=== PATIENT | female | born 1940 | race Caucasian/White ===

== ENCOUNTER 2016-04-15 10:57 | Inpatient (IN) | payer OTHER, MEDICARE ==
[~2016-04-15] VITALS: Ht 152.4 cm; Wt 90.0 kg
[2016-04-15] MEDS ORDERED: SODIUM CHLORIDE 0.9% 500ML 500 ML IV STA (11:39)
[2016-04-15] MEDS ORDERED: ALBUT/IPRATROP 3MG/0.5MG NEB 3 ML VIAL INH STA (11:39)
[2016-04-15] MEDS ORDERED: ACETAMINOPHEN 500 MG TAB PO STA (11:40)
--- NOTE | 2016-04-15 11:42 | EMERGENCY ROOM VISIT NOTE ---
History Report prepared by Ayan: Berenice Curiel Under the Supervision of: Dr. Gilmer Gonzalez M.D. First contact with patient: 11:33 Chief Complaint: SHORTNESS OF BREATH Stated Complaint: SHORTNESS OF BREATH Nursing Triage Summary: pt here with increased sob x 2 days. pt states slight cough. just not feeling well. normally does not wear oxygen at home. History of Present Illness The patient is a 75 year old female who presents to the Emergency Room with complaints of worsening shortness of breath. She was brought to the ED via EMS and is accompanied by her daughters. She states over the past 2 days her breathing has become more labored. She admits to a slight cough and states she "just doesn't feel well". Her O2 was in the 80's when EMS arrived, so she was given Oxygen in the field which has provided some relief. The patient does not wear Oxygen at home. She admits her appetite has been decreased over the past few days. She admits to some nausea but denies any vomiting. She denies any recent sick contacts and did not receive the flu shot this year. She denies any recent antibiotic usage. Her daughters deny any change in mental status or behavior. The patient does complain of a headache but states "it's not real bad ". Source of History: patient, family (daughters) Onset: 2 days DIE FILER Position: chest Timing: worsening Modifying Factors (Relieving): oxygen Associated Symptoms: + cough, + headache, + nausea, No vomiting Review of Systems See HPI for pertinent positives & negatives. A total of 10 systems reviewed and were otherwise negative. Past Medical & Surgical Medical Problems: (1) Hypertension Social History Smoking Status: Former Smoker Alcohol Use: occasionally Drug Use: none Marital Status: Housing Status: lives alone Occupation Status: retired Current/Historical Medications Scheduled Atorvastatin (Lipitor), 10 MG PO DAILY Cholecalciferol (D 5000), 5,000 INTERUNIT PO DAILY Furosemide (Lasix), 20 MG PO DAILY Levothyroxine Sodium (Levothyroxine Sodium), 75 MCG PO DAILY Metoprolol Succ (Toprol Xl) (Toprol-Xl), 50 MG PO DAILY Potassium Chloride (Micro-K Ext Rel), 20 MEQ PO DAILY Ropinirole (Requip), 1 MG PO DAILY Warfarin Sod (Jantoven), 2 MG PO DAILY Warfarin Sod (Jantoven), 3 MG PO DAILY Allergies Coded Allergies: No Known Allergies (Unverified , 04/15/16) Physical Exam Vital Signs Date Time Temp Pulse Resp B/P Pulse Ox O2 Delivery O2 Flow Rate FiO2 04/15/16 14:19 82 18 132/91 96 Nasal Cannula 4.0 04/15/16 13:53 95 Nasal Cannula 4.0 04/15/16 13:07 83 04/15/16 12:47 78 16 132/80 95 Nasal Cannula 4.0 04/15/16 11:58 73 20 171/105 98 Nasal Cannula 4.0 04/15/16 11:09 38.0 76 16 162/98 90 Room Air 04/15/16 11:06 75 Physical Exam GENERAL: Patient is dehydrated appearing and appears to be in mild distress. HEENT: No acute trauma, normocephalic atraumatic, mucous membranes moist, runny nose, no scleral icterus. NECK: No stridor, no adenopathy, no meningismus, trachea is midline. LUNGS: Mild tachypnea. No dyspnea. Clear to auscultation and equal bilaterally. No wheeze, no rhonchi. HEART: Regular rate and rhythm. No murmurs, rubs, gallops appreciated. ABDOMEN: Soft, nontender, bowel sounds positive, no masses appreciated, no peritonitis. BACK: No midline tenderness, no CVA tenderness EXTREMITIES: Normal motion all extremities, no cyanosis, no edema. NEUROLOGIC: Alert and oriented, no acute motor or sensory deficits, no focal weakness, cranial nerves grossly intact. SKIN: No rash, no jaundice, no diaphoresis. Medical Decision & Procedures ER Provider Diagnostic Interpretation: This X-Ray was reviewed and interpreted by myself and the radiologist. CHEST ONE VIEW PORTABLE IMPRESSION: Developing mild interstitial pulmonary edema. Electronically signed by: Nolan Strange M.D. 04/15/2016 12:02 PM Laboratory Results 04/15/16 11:00 Red Blood Count 4.29, Mean Corpuscular Volume 94.9, Mean Corpuscular Hemoglobin 32.6, Mean Corpuscular Hemoglobin Concent 34.4, Mean Platelet Volume 10.5, Neutrophils (%) (Auto) 89.6, Lymphocytes (%) (Auto) 5.6, Monocytes (%) (Auto) 4.5, Eosinophils (%) (Auto) 0.0, Basophils (%) (Auto) 0.1, Neutrophils # (Auto) 8.39, Lymphocytes # (Auto) 0.52, Monocytes # (Auto) 0.42, Eosinophils # (Auto) 0.00, Basophils # (Auto) 0.01 04/15/16 11:00 Test 04/15/16 11:00 04/15/16 11:45 04/15/16 12:12 White Blood Count 9.36 K/uL (4.8-10.8) Red Blood Count 4.29 M/uL (4.2-5.4) Hemoglobin 14.0 g/dL (12.0-16.0) Hematocrit 40.7 % (37-47) Mean Corpuscular Volume 94.9 fL (80-100) Mean Corpuscular Hemoglobin 32.6 pg (25-34) Mean Corpuscular Hemoglobin Concent 34.4 g/dl (32-36) Platelet Count 195 K/uL (130-400) Mean Platelet Volume 10.5 fL (7.4-10.4) Neutrophils (%) (Auto) 89.6 % Lymphocytes (%) (Auto) 5.6 % Monocytes (%) (Auto) 4.5 % Eosinophils (%) (Auto) 0.0 % Basophils (%) (Auto) 0.1 % Neutrophils # (Auto) 8.39 K/uL (1.4-6.5) Lymphocytes # (Auto) 0.52 K/uL (1.2-3.4) Monocytes # (Auto) 0.42 K/uL (0.11-0.59) Eosinophils # (Auto) 0.00 K/uL (0-0.5) Basophils # (Auto) 0.01 K/uL (0-0.2) RDW Standard Deviation 47.0 fL (36.4-46.3) RDW Coefficient of Variation 13.7 % (11.5-14.5) Immature Granulocyte % (Auto) 0.2 % Immature Granulocyte # (Auto) 0.02 K/uL (0.00-0.02) Prothrombin Time 19.8 SECONDS (9.0-12.0) Prothromb Time International Ratio 1.8 (0.9-1.1) Anion Gap 8.0 mmol/L (3-11) Est Creatinine Clear Calc Drug Dose 42.8 ml/min Estimated GFR () 56.1 Estimated GFR (Non- 48.4 BUN/Creatinine Ratio 15.5 (10-20) Calcium Level 8.7 mg/dl (8.5-10.1) Troponin I < 0.015 ng/ml (0-0.045) Chemistry Specimen Hemolysis Influenza Type A Antigen Neg for Influ A (NEG) Influenza Type B Antigen Neg for Influ B (NEG) Bedside Lactic Acid Venous 1.13 mmol/L (0.90-1.70) Laboratory results as reviewed by me. Medications Administered Medications (Trade) Dose Ordered Sig/Angeles Route Start Time Stop Time Status Last Admin Dose Admin Sodium Chloride (Nss 500ml) 500 ml @ 999 mls/hr Q31M STAT IV 04/15/16 11:39 04/15/16 12:09 DC 04/15/16 11:51 999 MLS/HR Albuterol/ Ipratropium (Duoneb) 3 ml NOW STAT INH 04/15/16 11:39 04/15/16 11:41 DC 04/15/16 11:48 3 ML Acetaminophen (Tylenol Tab) 1,000 mg NOW STAT PO 04/15/16 11:40 04/15/16 11:41 DC 04/15/16 11:48 1,000 MG Levofloxacin 750 mg 750 mg NOW STAT IV 04/15/16 12:32 04/15/16 12:34 DC 04/15/16 12:46 750 MG Sodium Chloride (Nss 1000ml) 1,000 ml @ 75 mls/hr [id number] IV 04/15/16 14:30 05/15/16 14:29 04/15/16 16:38 75 MLS/HR ECG Indication: SOB/dyspnea Rate (beats per minute): 69 Rhythm: other (ventricular paced) Findings: no acute ischemic change, other (QTC is 450) ED Course 1134: The patient was evaluated in room C4. A complete history and physical exam was performed. 1139: DuoNeb 3 ml INH, NSS 500 ml @ 999 mls/hr IV. 1140: Acetaminophen 1000 mg PO. 1231: I discussed the patients case with Dr. Jerez, [facility] Hospitalist. The patient will be further evaluated. 1232: Levaquin 750 mg IV. Medical Decision Differential: Infectious, Reactive Airway Disease, Pneumonia, Pneumothorax, COPD , CHF, ACS, Pulmonary Embolism, MSK, GI, Dissection, amongst other etiologies entertained. 75 yr old female with fever, shob and requiring NC O2 with O2 sats in 80s DIE FILER. CXR with evidnece of pulm edema which I suspect may be bilateral pneumonia. She has normal lactic acid and normal BP thus hold on full fluid bolus in cause of this being edema though denies any leg swelling nor other CHF findings. Suspect may be viral given WBC is normal. She will need to come in with hypoxia and will start on IV abx given need for hospitalization. Patient agrees with this plan. No evidence of ACS, PE, Dissection. Stable and feeling well on NC O2. Consults Time Called: 1230 Consulting Physician: Dr. Jerez, [facility] Hospitalist Returned Call: 1231 I discussed the patients case with Dr. Jerez, [facility] Hospitalist. The patient will be further evaluated. Impression Primary Impression: Bilateral pneumonia Additional Impression: Hypoxia Scribe Attestation The scribe's documentation has been prepared under my direction and personally reviewed by me in its entirety. I confirm that the note above accurately reflects all work, treatment, procedures, and medical decision making performed by me. Departure Information Dispostion Being Evaluated By Hospitalist Referrals Teodoro Valerio (PCP) Patient Instructions My [facility] Problem Qualifiers Primary Impression: Bilateral pneumonia Pneumonia type: due to unspecified organism Lung location: unspecified part of lung Qualified Codes: J18.9 - Pneumonia, unspecified organism
[2016-04-15 11:48] LABS: BASO % 0.1 %; BASO ABS # 0.01 K/uL (0-0.2); COMPLETE YES; HEMATOCRIT 40.7 % (37-47); IG% 0.2 %; LYMPH % 5.6 %; LYMPH ABS # 0.52 K/uL (1.2-3.4); MEAN CELL VOLUME 94.9 fL (80-100); MEAN CORPUSCULAR HEMOGLOBIN 32.6 pg (25-34); MEAN CORPUSCULAR HGB CONC 34.4 g/dl (32-36); MEAN PLATELET VOLUME 10.5 fL (7.4-10.4); MONO % 4.5 %; NEUT % 89.6 %; PLATELET COUNT 195 K/uL (130-400); RED BLOOD COUNT 4.29 M/uL (4.2-5.4); WHITE BLOOD COUNT 9.36 K/uL (4.8-10.8)
[2016-04-15 12:00] LABS: BLOOD UREA NITROGEN 17 mg/dl (7-18); BUN/CREATININE RATIO 15.5 (10-20); CALCIUM 8.7 mg/dl (8.5-10.1); CARBON DIOXIDE 26 mmol/L (21-32); CHLORIDE 100 mmol/L (98-107); GLUCOSE 121 mg/dl (70-99); POTASSIUM 3.3 mmol/L (3.5-5.1); SODIUM 134 mmol/L (136-145)
--- NOTE | 2016-04-15 12:04 | DIAGNOSTIC IMAGING REPORT ---
CHEST ONE VIEW PORTABLE HISTORY: Shortness of breath. COMPARISON: None. FINDINGS: No pleural effusions. No pneumothorax. The heart is top normal in size. The left-sided dual-chamber pacemaker. There is mild diffuse interstitial vascular thickening. This suggests developing pulmonary edema. IMPRESSION: Developing mild interstitial pulmonary edema. Electronically signed by: Nolan Strange M.D. 04/15/2016 12:02 PM Dictated Date/Time: 04/15/2016 12:01 PM
[2016-04-15] MEDS ORDERED: LEVO75TA5 PO (12:19)
[2016-04-15] MEDS ORDERED: METO50TA7 PO (12:24)
[2016-04-15] MEDS ORDERED: FURO-85 PO (12:24)
[2016-04-15] MEDS ORDERED: WARF2TAB8 PO (12:24)
[2016-04-15] MEDS ORDERED: CHOL1TAB52 PO (12:24)
[2016-04-15] MEDS ORDERED: POTA10CA28 PO (12:24)
[2016-04-15] MEDS ORDERED: ROPI1TAB PO (12:24)
[2016-04-15] MEDS ORDERED: ATOR10TA88 PO (12:24)
[2016-04-15] MEDS ORDERED: WARF3TAB6 PO (12:24)
[2016-04-15] MEDS ORDERED: LEVAQUIN 750MG / 150ML D5W IV STA (12:32)
[2016-04-15 13:53] VITALS: O2SAT 95; Ht 152.4 cm; Wt 90.0 kg
[2016-04-15] MEDS ORDERED: ACETAMINOPHEN 325 MG TAB PO PRN (14:30)
[2016-04-15] MEDS ORDERED: POLYETHYLENE (MIRALAX) 17 GM PACK PO PRN (14:30)
[2016-04-15] MEDS ORDERED: PNEUMOCOCCAL POLYSACCHARIDES 25 MCG/0.5 ML VIAL/SYR IM. ONE (14:30)
[2016-04-15] MEDS ORDERED: MAGNESIUM HYDROXIDE SUSP 30 ML UDC PO PRN (14:30)
[2016-04-15] MEDS ORDERED: ZOLPIDEM TARTRATE 5 MG TAB PO PRN (14:30)
[2016-04-15] MEDS ORDERED: ALUMINUM/MAGNESIUM/SIMETH (MAALOX MAX) 30 ML UDC PO PRN (14:30)
[2016-04-15] MEDS ORDERED: ONDANSETRON INJ 2 MG/ML 2 ML VIAL IV PRN (14:30)
[2016-04-15] MEDS ORDERED: LEVALBUTEROL/IPRATROPIUM NEB INH SCH (15:00)
[2016-04-15] MEDS ORDERED: PNEUMOCOCCAL ADMINISTRATION CHARGE ONE (15:30)
[2016-04-15 15:45] LABS: INR 1.8 (0.9-1.1); PROTHROMBIN TIME (PATIENT) 19.8 SECONDS (9.0-12.0)
[2016-04-15] MEDS ORDERED: WARFARIN SOD 2 MG TAB PO SCH (16:00)
[2016-04-15] MEDS ORDERED: LEVOFLOXACIN CONSULT ACTIVE PRN (16:00)
[2016-04-15] MEDS: SODIUM CHLORIDE 0.9% 1000ML 1,000 ML IV SCH (16:38)
[2016-04-15 16:45] VITALS: BP 144/85; PULSE 78; TEMP 36.4; O2SAT 93
--- NOTE | 2016-04-15 17:02 | HISTORY & PHYSICAL EXAMINATION ---
DATE OF ADMISSION: 04/15/2016 REASON FOR ADMISSION: 1. Shortness of breath and hypoxia. 2. Bilateral lower lobe pneumonia. HISTORY OF PRESENT ILLNESS: The patient is a 75-year-old white female with significant past medical history for hyperlipidemia, hypertension, hypothyroidism, atrial fibrillation/atrial flutter, tachy-juli syndrome, vitamin D deficiency, Graves' disease and cholelithiasis who presented to [facility] Room on 04/15/2016 for increased shortness of breath. According to the patient, her symptoms started about 2 days prior to admission. She started with increased shortness of breath that has persisted. She states that has not really gotten any worse that she knows of and it has not gotten better. She states that she has been having a slight cough with this as well. She is not getting any mucus with the cough. She states that she just felt very poorly today and because of more labored breathing and feeling poorly her family contacted EMS. When EMS got there, her oxygen saturation was in the mid 80% range. She was placed on oxygen in the field. This did provide her with some relief. The patient does not typically wear oxygen at home. She states that again she has not been feeling well for the past couple of days. She has had chills and she has had sweats at home. She has not checked her temperature to see if she is running a fever. In addition to the increased shortness of breath and cough, she has not noticed any wheezing. She denies any chest discomfort, no pleuritic chest pain. No chest pain at rest. She has noticed that her appetite has been diminished. She has not really been eating much for the past couple of days. She has been taking some fluids in, but not a whole lot. She has felt nauseated, but has not had any vomiting. She states that her bowels have been moving despite not eating much. She states that her bowels normally move 1-2 times a day and it has been formed. She has not noticed any blood in stool. She has not had any thick, black, tarry looking stools. She has not had any sick contacts that she is aware of, although she did go out to eat with her family on Saturday prior to feeling poorly. Family reports that despite the O2 saturations being lower she has not had any mental status changes, has not had any personality changes. She states that she has not had any cardiac symptoms. No chest pain, no palpitations, no chest pressure or heaviness. No discomfort up into her jaw or down into her arms. She states that she has had some headache off and on and some dizziness that does not seem to be as bad today. She denies any difficulty with her voiding. She states she has not been voiding quite as much. She states that she is on Lasix daily. She has had no dysuria. She states that her urine has been darker than normal. She has not noticed any blood in her urine. She has some leg swelling but this is normal for her. She has not had any increase in her leg swelling. She states that she will get some pain in her legs towards the evening, she was diagnosed with restless legs syndrome and is on Requip for this. She states that the leg pain has not been any worse over the past couple of days. She denies any numbness or tingling in her extremities. She has not had any travel out of the country recently. Prior to admission she had been doing well and in her normal state of health, where her breathing was doing fairly well. She is a former smoker, having quit earlier this year. Despite that she denies any significant changes in her breathing. She does have the mentioned cardiac history with the tachy-juli syndrome and AFib. She is on Coumadin for this and has had a pacemaker implanted in 2010. She has never been worked up by pulmonology, although she states that the providers have said they have heard something in her right lower lobe previously and that she has had CAT scans done previously, but they have never found anything. CAT scans were done at an outside location, we do not have any evidence of anything in her chart and it has been several years since she has had any imaging done. Today in the ER, the patient was worked up for her breathing difficulty and was found to have what appears to be a bilateral pneumonia on chest x-ray. Fortunately, her white count is stable at 9000. There is no evidence of any sepsis at this time. She did have a temperature 38 upon admission. She was treated with a fluid bolus in the ER, she was also treated with Levaquin, Tylenol and DuoNeb. The patient feels that the DuoNeb did help her breathing as well as the oxygen helped her breathing. She did have flu titers done which were negative as well. She did not have her flu shot this year. She did not have a pneumonia shot recently that she is aware of. PAST MEDICAL HISTORY: Includes atrial fibrillation, tachy-juli syndrome, hyperlipidemia, hypertension, hypothyroidism, Graves' disease, restless legs syndrome, cholelithiasis, vitamin D deficiency. She is followed by Dr. Grant for cardiology. PAST SURGICAL HISTORY: Includes a pacemaker placed approximately 11 years ago and a thyroidectomy for the Graves' disease in 1983. SOCIAL HISTORY: The patient is a former smoker. She quit within the last year. Generally she smokes about half a pack to a pack a day with her predominantly being a half a pack or less since her pacemaker placed 11 years ago, but she has smoked for over 50 years. She does consume alcohol rarely. She lives alone. She is . Her of lung cancer. She is retired from the [employer] where she worked in the [employer]. She has 6 children. CURRENT MEDICATIONS: Include Lipitor 10 mg daily, vitamin D 5000 units daily, Lasix 20 mg daily, Synthroid 75 mcg daily, Toprol 50 mg daily, Micro-K 20 mEq daily, Requip 1 mg daily and Coumadin for which she is on a regimen of 2 mg on Saturday, Saturday and Saturday and 3 mg the rest. INR was not done in the ER. ALLERGIES: No known drug allergies. REVIEW OF SYSTEMS: Essentially as above, are otherwise unremarkable. PHYSICAL EXAMINATION: GENERAL: The patient is a 75-year-old female lying in bed. She is alert and oriented x3. Mood is good. Affect is good. VITAL SIGNS: Temperature 38.0, pulse 76, respirations 16, most recent blood pressure is 132/91, pulse ox 96% on 4 liters. HEENT: Normocephalic, atraumatic. Pupils are equal, round and reactive to light and accommodation. Extraocular movements are intact. The patient does have a bilateral ptosis. [place], dry, tacky mucous membranes. No oropharyngeal erythema or edema. She does have dentures in the upper. NECK: Short, thick. No mass. No adenopathy. No bruits noted. No JVD or thyromegaly. No tenderness to palpation. She has good range of motion. CHEST: She does have some almost coarse wheeze in the bases. There is almost also what appears to sound like some velcro rales in the right base. There is no rhonchi noted. She has fairly good air movement throughout. CARDIOVASCULAR: Regular rate and rhythm. No murmurs, gallops or rubs appreciated. ABDOMEN: Bowel sounds are present. Abdomen is soft, no tenderness to palpation. There is no guarding, rigidity or organomegaly noted. EXTREMITIES: The patient has no significant edema, no erythema. She does have some chronic venous stasis changes predominantly in the left. No tenderness to palpation. Distal pulses are 2/4 and symmetrical bilaterally. Sensation is normal. NEUROLOGIC: Cranial nerves II through XII are intact. There is no focal deficit noted. SKIN: Aside from brawny changes on the lower extremities, no other abnormalities noted. LABORATORY DATA: Shows a white count of 9000, H\T\H of 14.0 and 40.7, and, platelet count of 195,000. Sodium 134, potassium 3.3, chloride 100, carbon dioxide 26, BUN 17, creatinine 1.1, random glucose is 121. Her lactic acid was 1.13, calcium 8.7. Troponin less than 0.01. Chest x-ray showing some bilateral bibasilar changes most consistent with potential infiltrate. IMPRESSION: 1. This is a 75-year-old female with a 2-day history of increased shortness of breath and hypoxia, who presented to [facility] Room today. She was found to have what appears to be a bilateral pneumonia. At this point, the patient will be admitted to [facility] for further evaluation and treatment. I would like to continue her on Levaquin 750 mg daily. I would like her to be on Solu-Medrol 40 mg q.8 hours. I would like aggressive pulmonary toilet before levalbuterol and ipratropium combination q.6 hours. I would like for her to do an incentive spirometer and a flutter valve. We will continue to monitor her CBC and would recommend a repeated chest x-ray in approximately 2-3 days. 2. Hypoxia. The patient will be continued on oxygen and titrate as she shows improvement. The patient was on oxygen at home prior to this. 3. History of atrial fibrillation on Coumadin. The patient's INR will be checked as it was not checked yet today. Per her schedule today she would typically get 2 mg. If the INR is below 3.5 then we will have the patient given 2 mg, if it is above 3.5 then Coumadin will be held and INR will be rechecked tomorrow. 4. Tachy-juli syndrome, the patient has pacemaker, appears to be stable at this time. 5. Hyperlipidemia. The patient is stable. She is to continue her Lipitor. 6. Hypothyroidism. The patient is continue her Synthroid at 75 mcg. 7. Hypertension. The patient is to continue Toprol 50 mg daily. 8. Mild volume depletion. At this time, gently hydrate and hold her Lasix. Will reevaluate tomorrow. At this point, in light of patient's pneumonia as well as hypoxia she meets criteria for 2 midnight stays for hospitalization. I agree with PA assessment and plan and have seen and examined pt myself Reviewed labs, EKG, CXR Agree with PE findings Will tx for PNA at this time. Cont levaquin, dulatabs, spirometry, O2 MTDD
[2016-04-15] MEDS: METHYLPREDNISOLONE IV 40 MG in SYRINGE 0 ML IV SCH (17:38)
[2016-04-15] MEDS: LEVALBUTEROL 1.25MG/0.5ML NEB INH SCH (19:23)
[2016-04-15] MEDS: IPRATROPIUM BROMIDE NEB SOLN 0.02% 2.5 ML VIAL INH SCH (19:23)
[2016-04-15 19:31] VITALS: PULSE 75; O2SAT 96
[2016-04-15] MEDS: POTASSIUM CHLORIDE 20 MEQ TABCR PO SCH (21:54)
[2016-04-15] MEDS: ROPINIROLE HCL 1 MG TAB PO SCH (21:55)
[2016-04-15 23:05] VITALS: BP 124/83; PULSE 76; TEMP 36.9; O2SAT 95
[2016-04-16] VITALS (7 sets, daily range): BP systolic 109–129; BP diastolic 71–81; PULSE 71–79; TEMP 36.5–36.9; O2SAT 91–97
[2016-04-16] MEDS: METHYLPREDNISOLONE IV 40 MG in SYRINGE 0 ML IV SCH ×3 (01:53→21:28)
[2016-04-16] MEDS: LEVALBUTEROL 1.25MG/0.5ML NEB INH SCH ×4 (02:01→20:33)
[2016-04-16] MEDS: IPRATROPIUM BROMIDE NEB SOLN 0.02% 2.5 ML VIAL INH SCH ×4 (02:01→20:33)
[2016-04-16] MEDS: SODIUM CHLORIDE 0.9% 1000ML 1,000 ML IV SCH ×2 (05:41→17:27)
[2016-04-16] MEDS: LEVOTHYROXINE 75 MCG TAB PO SCH (05:41)
[2016-04-16 07:36] LABS: COMPLETE YES; HEMATOCRIT 37.7 % (37-47); IG% 0.3 %; LYMPH % 3.9 %; LYMPH ABS # 0.26 K/uL (1.2-3.4); MEAN CELL VOLUME 94.3 fL (80-100); MEAN CORPUSCULAR HEMOGLOBIN 31.8 pg (25-34); MEAN CORPUSCULAR HGB CONC 33.7 g/dl (32-36); MEAN PLATELET VOLUME 10.2 fL (7.4-10.4); MONO % 2.1 %; NEUT % 93.7 %; PLATELET COUNT 175 K/uL (130-400); WHITE BLOOD COUNT 6.68 K/uL (4.8-10.8)
[2016-04-16 07:45] LABS: INR 1.9 (0.9-1.1); PROTHROMBIN TIME (PATIENT) 21.3 SECONDS (9.0-12.0)
[2016-04-16 08:15] LABS: BUN/CREATININE RATIO 14.3 (10-20); CALCIUM 8.5 mg/dl (8.5-10.1); CREATININE 0.96 mg/dl (0.60-1.20); POTASSIUM 3.4 mmol/L (3.5-5.1)
[2016-04-16] MEDS: POTASSIUM CHLORIDE 20 MEQ TABCR PO SCH ×2 (09:07→21:24)
[2016-04-16] MEDS: ATORVASTATIN 10 MG TAB PO SCH (09:07)
[2016-04-16] MEDS: METOPROLOL SUCC 50MG EXT REL TAB PO SCH (09:07)
[2016-04-16] MEDS: CHOLECALCIFEROL 1000 INTER.UNIT TAB PO SCH (09:08)
[2016-04-16] MEDS: WARFARIN SOD 3 MG TAB PO SCH (15:38)
--- NOTE | 2016-04-16 16:24 | Progress Note ---
Subjective Date of Service: Apr 16, 2016. Subjective Pt evaluation today including: conversation w/ patient, conversation w/ family , physical exam, chart review, lab review, review of studies, review of inpatient medication list Feeling much better. Breathing better. AMbulating without much SOB. Coughing intermittently. No fevers, no chest pain, no abd pain. No n/v/ constipation. No urinary symptoms. Problem List Medical Problems: (1) Bilateral pneumonia Status: Acute (2) Hypoxia Status: Acute Review of Systems All Other Systems: Reviewed and Negative Medications Acetaminophen (Tylenol Tab) 650 mg Q4H PRN PO; Start 04/15/16 at 14:30; Stop 05/15/16 at 14:29 Al Hydrox/Mg Hydrox/Simethicone (Maalox Max Susp) 15 ml Q4H PRN PO; Start 04/15 at 14:30; Stop 05/15/16 at 14:29 Atorvastatin Calcium (Lipitor Tab) 10 mg QAM PO Last administered on 04/16/16 09:07; Admin Dose 10 MG; Start 04/16/16 at 09:00; Stop 05/16/16 at 08:59 Cholecalciferol (Vitamin D Tab) 5,000 inter.unit QAM PO Last administered on 09:08; Admin Dose 5,000 INTER.UNIT; Start 04/16/16 at 09:00; Stop at 08:59 Ipratropium [place] (Atrovent 0.02% 0.5MG/2.5ML Neb) 0.5 mg Q6R INH Last administered on 04/16/16 14:18; Admin Dose 0.5 MG; Start 04/15/16 at 21:00; Stop 05/15/16 at 20:59 Levalbuterol (Xopenex 1.25MG/ 0.5ML Neb) 1.25 mg Q6R INH Last administered on 14:18; Admin Dose 1.25 MG; Start 04/15/16 at 21:00; Stop 05/15/16 at 20: 59 Levofloxacin (Consult) 1 ea UD PRN N/A; Start 04/15/16 at 16:00; Stop 05/15/16 at 15:59 Levofloxacin 750 mg/Prmx 150 ml @ 100 mls/hr Q48H IV; Start 04/17/16 at 12:00; Stop 04/21/16 at 23:59 Levothyroxine Sodium (Synthroid Tab) 75 mcg DAILYBB PO Last administered on 04/16 05:41; Admin Dose 75 MCG; Start 04/16/16 at 06:00; Stop 05/16/16 at 06:59 Magnesium Hydroxide (Milk Of Magnesia Susp) 30 ml Q6H PRN PO; Start 04/15/16 at 14:30; Stop 05/15/16 at 14:29 Methylprednisolone Sodium Succinate/ Syringe (Solu-Medrol IV/ Syringe) 0.64 ml @ 1.5 mls/min Q8H IV Last administered on 04/16/16 10:49; Admin Dose 1.5 MLS/ MIN; Start 04/15/16 at 18:00; Stop 05/15/16 at 21:59 Metoprolol Succinate (Toprol Xl Tab) 50 mg QAM PO Last administered on 09:07; Admin Dose 50 MG; Start 04/16/16 at 09:00; Stop 05/16/16 at 08:59 Ondansetron HCl 4 mg 4 mg Q6H PRN IV; Start 04/15/16 at 14:30; Stop 05/15/16 at 14:29 Polyethylene (Miralax Powder Packet) 17 gm DAILY PRN PO; Start 04/15/16 at 14: 30; Stop 05/15/16 at 14:29 Potassium Chloride (Klor-Con Tab) 20 meq BID PO Last administered on 04/16/16 09:07; Admin Dose 20 MEQ; Start 04/15/16 at 21:00; Stop 05/15/16 at 20:59 Ropinirole HCl (Requip Tab) 1 mg HS PO Last administered on 04/15/16 21:55; Admin Dose 1 MG; Start 04/15/16 at 21:00; Stop 05/15/16 at 20:59 Sodium Chloride 1,000 ml @ 75 mls/hr [id number] IV Last administered on 04/16/16 05:41; Admin Dose 75 MLS/HR; Start 04/15/16 at 14:30; Stop 05/15/16 at 14:29 Warfarin Sodium (Coumadin Tab) 2 mg SuWeFr@1600 PO Last administered on 17:38; Admin Dose 2 MG; Start 04/15/16 at 16:00; Stop 05/15/16 at 15:59 Warfarin Sodium (Coumadin Tab) 3 mg MoTuThSa@1600 PO Last administered on 15:38; Admin Dose 3 MG; Start 04/16/16 at 16:00; Stop 05/16/16 at 15:59 Zolpidem Tartrate (Ambien Tab) 5 mg HSZ PRN PO; Start 04/15/16 at 14:30; Stop 05/15/16 at 14:29 Objective Vital Signs Date Time Temp Pulse Resp B/P Pulse Ox O2 Delivery O2 Flow Rate FiO2 04/16/16 15:20 36.9 76 18 109/71 92 Room Air 04/16/16 14:18 74 16 96 Room Air 04/16/16 08:10 Room Air 04/16/16 07:37 74 16 97 Room Air 04/16/16 07:08 36.5 71 16 125/77 92 Room Air 04/16/16 02:01 79 16 97 Nasal Cannula 2.0 04/15/16 23:59 Nasal Cannula 2.0 04/15/16 23:05 36.9 76 16 124/83 95 Nasal Cannula 2.0 04/15/16 19:31 75 18 96 Nasal Cannula 2.0 04/15/16 16:45 36.4 78 16 144/85 93 Room Air 04/15/16 16:20 Nasal Cannula 2.0 Physical Exam Comments: nad, aox3, coherent with fluent speech eomi, perrl, anicteric, mild proptosis noted s1 s2 rrr, no murmurs appreciated rll crackles at the base (chronic), good air exchange otherwise, no wheezing abd soft,nt/nd +BS, no cva tend cn 2-12 grossly intact without facial drooping Laboratory Results Last 24 Hours Test 04/16/16 06:40 White Blood Count 6.68 K/uL Red Blood Count 4.00 M/uL Hemoglobin 12.7 g/dL Hematocrit 37.7 % Mean Corpuscular Volume 94.3 fL Mean Corpuscular Hemoglobin 31.8 pg Mean Corpuscular Hemoglobin Concent 33.7 g/dl Platelet Count 175 K/uL Mean Platelet Volume 10.2 fL Neutrophils (%) (Auto) 93.7 % Lymphocytes (%) (Auto) 3.9 % Monocytes (%) (Auto) 2.1 % Eosinophils (%) (Auto) 0.0 % Basophils (%) (Auto) 0.0 % Neutrophils # (Auto) 6.26 K/uL Lymphocytes # (Auto) 0.26 K/uL Monocytes # (Auto) 0.14 K/uL Eosinophils # (Auto) 0.00 K/uL Basophils # (Auto) 0.00 K/uL RDW Standard Deviation 46.5 fL RDW Coefficient of Variation 13.4 % Immature Granulocyte % (Auto) 0.3 % Immature Granulocyte # (Auto) 0.02 K/uL Prothrombin Time 21.3 SECONDS Prothromb Time International Ratio 1.9 Sodium Level 135 mmol/L Potassium Level 3.4 mmol/L Chloride Level 103 mmol/L Carbon Dioxide Level 21 mmol/L Anion Gap 11.0 mmol/L Blood Urea Nitrogen 14 mg/dl Creatinine 0.96 mg/dl Est Creatinine Clear Calc Drug Dose 49.0 ml/min Estimated GFR () 66.1 Estimated GFR (Non- 57.0 BUN/Creatinine Ratio 14.3 Random Glucose 195 mg/dl Calcium Level 8.5 mg/dl Assessment and Plan 75yo F h/o Graves, htn, Afib on a/c, SSS s/p PPM admitted with LLL pneumonia on levaquin 1. LLL Pneumonia - improving on levaquin - cont solu-medrol and will taper down gradually - cont nebs 2. Hyponatremia - with hypokalemia - likely from decreased po intake - given supplement of K t his morning - Na should improve with po intake 3. HTN - acceptable BP on current regimen 4. Afib, SSS s/p PPM - on coumadin at home - INR 1.9, will not change coumadin dose for now especially with abx on board - INR check in AM
[2016-04-16] MEDS: ROPINIROLE HCL 1 MG TAB PO SCH (21:24)
[2016-04-17] VITALS (9 sets, daily range): BP systolic 122–144; BP diastolic 78–85; PULSE 76–87; TEMP 36.4–36.7; O2SAT 91–97
[2016-04-17] MEDS: LEVALBUTEROL 1.25MG/0.5ML NEB INH SCH ×4 (02:13→19:55)
[2016-04-17] MEDS: IPRATROPIUM BROMIDE NEB SOLN 0.02% 2.5 ML VIAL INH SCH ×4 (02:13→19:55)
[2016-04-17] MEDS: LEVOTHYROXINE 75 MCG TAB PO SCH (05:59)
[2016-04-17] MEDS: SODIUM CHLORIDE 0.9% 1000ML 1,000 ML IV SCH ×2 (06:00→20:16)
[2016-04-17 08:32] LABS: INR 2.8 (0.9-1.1); PROTHROMBIN TIME (PATIENT) 31.4 SECONDS (9.0-12.0)
[2016-04-17 08:48] LABS: BUN/CREATININE RATIO 15.7 (10-20); CALCIUM 8.7 mg/dl (8.5-10.1); CREATININE 0.95 mg/dl (0.60-1.20); POTASSIUM 3.6 mmol/L (3.5-5.1)
[2016-04-17 08:56] LABS: COMPLETE YES; HEMATOCRIT 38.9 % (37-47); IG% 0.3 %; LYMPH % 3.7 %; LYMPH ABS # 0.64 K/uL (1.2-3.4); MEAN CELL VOLUME 93.7 fL (80-100); MEAN CORPUSCULAR HEMOGLOBIN 32.3 pg (25-34); MEAN CORPUSCULAR HGB CONC 34.4 g/dl (32-36); MEAN PLATELET VOLUME 10.8 fL (7.4-10.4); MONO % 4.2 %; NEUT % 91.8 %; PLATELET COUNT 213 K/uL (130-400); RED BLOOD COUNT 4.15 M/uL (4.2-5.4)
[2016-04-17] MEDS: POTASSIUM CHLORIDE 20 MEQ TABCR PO SCH ×2 (09:07→20:15)
[2016-04-17] MEDS: METOPROLOL SUCC 50MG EXT REL TAB PO SCH (09:07)
[2016-04-17] MEDS: METHYLPREDNISOLONE IV 40 MG in SYRINGE 0 ML IV SCH ×2 (09:07→20:15)
[2016-04-17] MEDS: CHOLECALCIFEROL 1000 INTER.UNIT TAB PO SCH (09:07)
[2016-04-17] MEDS: ATORVASTATIN 10 MG TAB PO SCH (09:07)
[2016-04-17] MEDS ORDERED: LEVOFLOXACIN / D5W 750 MG in PREMIXED IN D5W 150 ML IV SCH (12:00)
--- NOTE | 2016-04-17 15:21 | Progress Note ---
Subjective Date of Service: Apr 17, 2016. Subjective Pt evaluation today including: conversation w/ patient, physical exam, lab review, review of inpatient medication list Feeling better. No SOB, no chest pain. GOod appetite. Problem List Medical Problems: (1) Bilateral pneumonia Status: Acute (2) Hypoxia Status: Acute Review of Systems All Other Systems: Reviewed and Negative Medications Acetaminophen (Tylenol Tab) 650 mg Q4H PRN PO; Start 04/15/16 at 14:30; Stop 05/15/16 at 14:29 Al Hydrox/Mg Hydrox/Simethicone (Maalox Max Susp) 15 ml Q4H PRN PO; Start 04/15 at 14:30; Stop 05/15/16 at 14:29 Atorvastatin Calcium (Lipitor Tab) 10 mg QAM PO Last administered on 04/17/16 09:07; Admin Dose 10 MG; Start 04/16/16 at 09:00; Stop 05/16/16 at 08:59 Cholecalciferol (Vitamin D Tab) 5,000 inter.unit QAM PO Last administered on 09:07; Admin Dose 5,000 INTER.UNIT; Start 04/16/16 at 09:00; Stop at 08:59 Ipratropium [place] (Atrovent 0.02% 0.5MG/2.5ML Neb) 0.5 mg Q6R INH Last administered on 04/17/16 14:24; Admin Dose 0.5 MG; Start 04/15/16 at 21:00; Stop 05/15/16 at 20:59 Levalbuterol (Xopenex 1.25MG/ 0.5ML Neb) 1.25 mg Q6R INH Last administered on 14:24; Admin Dose 1.25 MG; Start 04/15/16 at 21:00; Stop 05/15/16 at 20: 59 Levofloxacin (Consult) 1 ea UD PRN N/A; Start 04/15/16 at 16:00; Stop 05/15/16 at 15:59 Levofloxacin/Prmx (Levaquin / D5W/ Premixed D5W) 150 ml @ 100 mls/hr Q48H IV Last administered on 04/17/16 11:49; Admin Dose 100 MLS/HR; Start 04/17/16 at 12:00; Stop 04/21/16 at 23:59 Levothyroxine Sodium (Synthroid Tab) 75 mcg DAILYBB PO Last administered on 04/17 05:59; Admin Dose 75 MCG; Start 04/16/16 at 06:00; Stop 05/16/16 at 06:59 Magnesium Hydroxide (Milk Of Magnesia Susp) 30 ml Q6H PRN PO; Start 04/15/16 at 14:30; Stop 05/15/16 at 14:29 Methylprednisolone Sodium Succinate/ Syringe (Solu-Medrol IV/ Syringe) 0.64 ml @ 1.5 mls/min Q12@1000,2200 IV Last administered on 04/17/16 09:07; Admin Dose 1.5 MLS/MIN; Start 04/16/16 at 22:00; Stop 05/16/16 at 21:59 Metoprolol Succinate (Toprol Xl Tab) 50 mg QAM PO Last administered on 09:07; Admin Dose 50 MG; Start 04/16/16 at 09:00; Stop 05/16/16 at 08:59 Ondansetron HCl 4 mg 4 mg Q6H PRN IV; Start 04/15/16 at 14:30; Stop 05/15/16 at 14:29 Polyethylene (Miralax Powder Packet) 17 gm DAILY PRN PO; Start 04/15/16 at 14: 30; Stop 05/15/16 at 14:29 Potassium Chloride (Klor-Con Tab) 20 meq BID PO Last administered on 04/17/16 09:07; Admin Dose 20 MEQ; Start 04/15/16 at 21:00; Stop 05/15/16 at 20:59 Ropinirole HCl (Requip Tab) 1 mg HS PO Last administered on 04/16/16 21:24; Admin Dose 1 MG; Start 04/15/16 at 21:00; Stop 05/15/16 at 20:59 Sodium Chloride 1,000 ml @ 75 mls/hr [id number] IV Last administered on 04/17/16 06:00; Admin Dose 75 MLS/HR; Start 04/15/16 at 14:30; Stop 05/15/16 at 14:29 Warfarin Sodium (Coumadin Tab) 2 mg SuWeFr@1600 PO Last administered on 17:38; Admin Dose 2 MG; Start 04/15/16 at 16:00; Stop 05/15/16 at 15:59 Warfarin Sodium 3 mg 3 mg MoTuThSa@1600 PO Last administered on 04/17/16 15:45 ; Admin Dose 3 MG; Start 04/16/16 at 16:00; Stop 05/16/16 at 15:59 Zolpidem Tartrate (Ambien Tab) 5 mg HSZ PRN PO; Start 04/15/16 at 14:30; Stop 05/15/16 at 14:29 Objective Vital Signs Date Time Temp Pulse Resp B/P Pulse Ox O2 Delivery O2 Flow Rate FiO2 04/17/16 14:24 79 16 97 Room Air 04/17/16 11:57 36.5 87 16 142/85 93 Room Air 04/17/16 07:32 36.4 83 16 144/83 92 Room Air 04/17/16 07:30 Room Air 04/17/16 07:17 83 16 96 Room Air 04/17/16 02:13 78 18 94 Room Air 04/17/16 00:07 Room Air 04/16/16 23:55 36.6 79 16 129/81 91 Room Air 04/16/16 20:34 71 16 97 Room Air 04/16/16 20:00 Room Air Physical Exam Comments: nad, aox3, eomi, perrl s1 s2 rrr, no murmurs appreciated left basilar rales, occ wheezing, no rhonchi abd soft, nt/nd +BS no cva tend no LE edema cn 2-12 grossly intact without facial drooping, coherent and fluent speech Laboratory Results Last 24 Hours Test 04/17/16 07:46 White Blood Count 17.20 K/uL Red Blood Count 4.15 M/uL Hemoglobin 13.4 g/dL Hematocrit 38.9 % Mean Corpuscular Volume 93.7 fL Mean Corpuscular Hemoglobin 32.3 pg Mean Corpuscular Hemoglobin Concent 34.4 g/dl Platelet Count 213 K/uL Mean Platelet Volume 10.8 fL Neutrophils (%) (Auto) 91.8 % Lymphocytes (%) (Auto) 3.7 % Monocytes (%) (Auto) 4.2 % Eosinophils (%) (Auto) 0.0 % Basophils (%) (Auto) 0.0 % Neutrophils # (Auto) 15.78 K/uL Lymphocytes # (Auto) 0.64 K/uL Monocytes # (Auto) 0.72 K/uL Eosinophils # (Auto) 0.00 K/uL Basophils # (Auto) 0.00 K/uL RDW Standard Deviation 47.3 fL RDW Coefficient of Variation 13.8 % Immature Granulocyte % (Auto) 0.3 % Immature Granulocyte # (Auto) 0.06 K/uL Prothrombin Time 31.4 SECONDS Prothromb Time International Ratio 2.8 Sodium Level 136 mmol/L Potassium Level 3.6 mmol/L Chloride Level 105 mmol/L Carbon Dioxide Level 18 mmol/L Anion Gap 13.0 mmol/L Blood Urea Nitrogen 15 mg/dl Creatinine 0.95 mg/dl Est Creatinine Clear Calc Drug Dose 49.6 ml/min Estimated GFR () 67.0 Estimated GFR (Non- 57.8 BUN/Creatinine Ratio 15.7 Random Glucose 148 mg/dl Calcium Level 8.7 mg/dl Assessment and Plan 75yo F h/o Graves, htn, Afib on a/c, SSS s/p PPM admitted with LLL pneumonia on levaquin 1. LLL Pneumonia - improving on levaquin, can be switched to po to complete 7 days - cont solu-medrol and will taper down gradually and switch to po steroids on discharge - cont nebs 2. Hyponatremia - with hypokalemia - likely from decreased po intake - resolved with improvement in po intake 3. HTN - acceptable BP on current regimen 4. Afib, SSS s/p PPM - on coumadin at home - INR therapeutic - AM INR check
[2016-04-17] MEDS: WARFARIN SOD 3 MG TAB PO SCH (15:45)
[2016-04-17] MEDS: ROPINIROLE HCL 1 MG TAB PO SCH (20:15)
[2016-04-18 02:23] VITALS: PULSE 73; O2SAT 94
[2016-04-18] MEDS: IPRATROPIUM BROMIDE NEB SOLN 0.02% 2.5 ML VIAL INH SCH ×2 (02:23→07:53)
[2016-04-18] MEDS: LEVALBUTEROL 1.25MG/0.5ML NEB INH SCH ×2 (02:23→07:53)
[2016-04-18] MEDS: LEVOTHYROXINE 75 MCG TAB PO SCH (05:34)
--- NOTE | 2016-04-18 07:57 | DIAGNOSTIC IMAGING REPORT ---
TWO VIEW CHEST CLINICAL HISTORY: Pneumonia. FINDINGS: PA and lateral chest radiographs are compared to study dated 04/15/2016. A 2-lead cardiac pacemaker is unchanged in position and partially obscures the left mid chest. The heart is enlarged and there is atherosclerotic calcification of the thoracic aorta. Mild pulmonary vascular congestion persists. Chronic interstitial thickening is unchanged. A trace right pleural effusion is suspected. No airspace consolidation is seen typical for pneumonia. Bibasilar atelectasis is noted. Apical scarring is observed. There is no pneumothorax. The skeletal structures are osteopenic. Degenerative change and mild scoliosis are identified in the thoracic spine. IMPRESSION: 1. Cardiomegaly and cardiac pacemaker. Mild pulmonary vascular congestion persists. 2. Suspect a trace right pleural effusion. 3. No airspace consolidation is seen typical for pneumonia.. Electronically signed by: Troy Platt M.D. 04/18/2016 7:55 AM Dictated Date/Time: 04/18/2016 7:53 AM
[2016-04-18 08:31] VITALS: BP 132/64; PULSE 80; TEMP 36.6; O2SAT 92
[2016-04-18 08:35] LABS: BASO % 0.1 %; BASO ABS # 0.01 K/uL (0-0.2); COMPLETE YES; HEMATOCRIT 37.2 % (37-47); IG% 0.9 %; LYMPH % 4.3 %; LYMPH ABS # 0.57 K/uL (1.2-3.4); MEAN CELL VOLUME 91.9 fL (80-100); MEAN CORPUSCULAR HEMOGLOBIN 31.4 pg (25-34); MEAN CORPUSCULAR HGB CONC 34.1 g/dl (32-36); MEAN PLATELET VOLUME 9.9 fL (7.4-10.4); MONO % 6.6 %; NEUT % 88.1 %; PLATELET COUNT 215 K/uL (130-400); RED BLOOD COUNT 4.05 M/uL (4.2-5.4); WHITE BLOOD COUNT 13.25 K/uL (4.8-10.8)
[2016-04-18] MEDS: CHOLECALCIFEROL 1000 INTER.UNIT TAB PO SCH (08:40)
[2016-04-18] MEDS: POTASSIUM CHLORIDE 20 MEQ TABCR PO SCH (08:40)
[2016-04-18] MEDS: METOPROLOL SUCC 50MG EXT REL TAB PO SCH (08:40)
[2016-04-18] MEDS: ATORVASTATIN 10 MG TAB PO SCH (08:40)
[2016-04-18 08:41] LABS: PROTHROMBIN TIME (PATIENT) 40.8 SECONDS (9.0-12.0)
[2016-04-18] MEDS: SODIUM CHLORIDE 0.9% 1000ML 1,000 ML IV SCH (08:42)
[2016-04-18 08:43] VITALS: O2SAT 92
[2016-04-18 08:46] LABS: INR 3.6 (0.9-1.1)
[2016-04-18 09:00] LABS: BUN/CREATININE RATIO 21.2 (10-20); CALCIUM 8.8 mg/dl (8.5-10.1); CREATININE 0.97 mg/dl (0.60-1.20); POTASSIUM 4.1 mmol/L (3.5-5.1)
[2016-04-18] MEDS: METHYLPREDNISOLONE IV 40 MG in SYRINGE 0 ML IV SCH (10:27)
[2016-04-18] MEDS ORDERED: LVQ750 PO (12:25)
[2016-04-18] MEDS ORDERED: PRED10TA PO (12:25)
--- NOTE | 2016-04-18 12:41 | Discharge Instructions ---
Discharge Instructions Admission Reason for Admission: Bilateral Pneumonia, Hypoxia Discharge Discharge Diagnosis / Problem: stable for home Discharge Goals Goal(s): Decrease discomfort, Improve function Activity Recommendations Activity Limitations: resume your previous activity . Current Hospital Diet Patient's current hospital diet: AHA Diet (Heart Healthy) Discharge Diet Recommended Diet: Regular Diet Pending Studies Studies pending at discharge: no Medical Emergencies . Who to Call and When: Medical Emergencies: If at any time you feel your situation is an emergency, please call 911 immediately. . Non-Emergent Contact Non-Emergency issues call your: Primary Care Provider . . "Provider Documentation" section prepared by Rafaela Erazo. VTE Core Measure Inpt VTE Proph given/why not?: Warfarin (Coumadin)
--- NOTE | 2016-04-18 12:43 | Discharge Summary ---
Discharge Summary Date of Service Apr 18, 2016. Discharge Summary Admission Date: Apr 15, 2016 at 15:07 Discharge Date: Apr 18, 2016 Discharge Disposition: Home Principal Diagnosis: pneumonia Immunizations: Have You Had Influenza Vaccine: No Hospital Course 75yo F h/o Graves, htn, Afib on a/c, SSS s/p PPM admitted with LLL pneumonia on levaquin Vital Signs Date Time Temp Pulse Resp B/P Pulse Ox O2 Delivery O2 Flow Rate FiO2 04/18/16 13:38 36.6 80 16 92 Room Air 04/18/16 08:31 132/64 04/16/16 02:01 2.0 On day of discharge, felt well. No sob, no chest pain. no exertional dyspnea. GOod appetite. NAD, aox3 eomi, perrl, anicteric sclerae s1 s2 rrr, no mumurs appreciated rll rales (chronic) clear left lung without wheezing abd soft nt/nd +BS no LE edema 1. LLL Pneumonia - improving on levaquin, now po for 4 more days - taper steroids, directions on script - repeat CXR in 4-6 weeks 2. Hyponatremia - with hypokalemia - likely from decreased po intake - resolved with improvement in po intake 3. HTN - acceptable BP on current regimen 4. Afib, SSS s/p PPM - on coumadin at home - INR supratherapeutic - advised to hold coumadin tonight - should resume at lower dose of coumadin on 04/19 at 2 mg nightly - she will have her INR checked in 3 days as outpatient by Dr. Rodriguez Total Time Spent: Less than 30 minutes This includes examination of the patient, discharge planning, medication reconciliation, and communication with other providers. Discharge Instructions Please refer to the electronic Patient Visit Report (Discharge Instructions) for additional information. Additional Copies To Lg Rodriguez MD
[2016-04-18 13:38] VITALS: BP 132/64; PULSE 80; TEMP 36.6; O2SAT 92
[2016-04-19] MEDS ORDERED: LEVOFLOXACIN 750 MG TAB PO SCH (11:00)
[2016-04-23] MEDS ORDERED: LVNIS80 SQ (10:02)
[2016-04-23] MEDS ORDERED: PRT40 PO (10:02)
[2016-08-28] MEDS ORDERED: METO-217 PO (12:42)
[2016-08-28] MEDS ORDERED: FRS/40 PO (12:42)
[2016-08-28] MEDS ORDERED: ASPI81TA28 PO (12:42)
[2016-08-28] MEDS ORDERED: LEVO75TA5 PO (12:42)
== END 2016-04-18 15:00 | disposition home or self-care (01) | DRG 194 ==
LOC: ENRESERVTM → ENRESERVDT → EDBD 10:57 → C.EDC 10:58 → C.MSW 15:07
PROVIDERS: ADMIT Hospitalist; ATTEND Internal Medicine
DX: J18.9 Pneumonia, unspecified organism (principal); E87.1 Hypo-osmolality and hyponatremia; E87.6 Hypokalemia; R09.02 Hypoxemia; I10 Essential (primary) hypertension; I48.91 Unspecified atrial fibrillation; E05.00 Thyrotoxicosis with diffuse goiter without thyrotoxic crisis or storm; E03.9 Hypothyroidism, unspecified; G25.81 Restless legs syndrome; E55.9 Vitamin D deficiency, unspecified; Z79.899 Other long term (current) drug therapy; Z79.01 Long term (current) use of anticoagulants; Z66 Do not resuscitate; Z95.0 Presence of cardiac pacemaker; Z87.891 Personal history of nicotine dependence

== ENCOUNTER 2016-04-19 13:56 | Inpatient (IN) | payer OTHER, MEDICARE ==
[2016-04-19] VITALS (7 sets, daily range): BP systolic 147–169; BP diastolic 80–103; PULSE 64–73; TEMP 35.8–36.4; O2SAT 96–98; Ht 167.6 cm; Wt 87.3 kg
[~2016-04-19] VITALS: Ht 167.6 cm; Wt 87.3 kg
[~2016-04-19 13:56] MED LIST: ATOR10TA88 PO; CHOL1TAB52 PO; FURO-85 PO; LEVO75TA5 PO; LVQ750 PO; METO50TA7 PO; POTA10CA28 PO; PRED10TA PO; ROPI1TAB PO; WARF2TAB8 PO
[2016-04-19] MEDS ORDERED: OPTIRAY 320 IV PRN (14:30)
[2016-04-19 14:49] LABS: BASO % 0.3 %; BASO ABS # 0.05 K/uL (0-0.2); COMPLETE YES; EOS % 0.1 %; HEMATOCRIT 41.7 % (37-47); IG% 2.5 %; LYMPH % 6.7 %; MEAN CELL VOLUME 92.3 fL (80-100); MEAN CORPUSCULAR HEMOGLOBIN 31.2 pg (25-34); MEAN CORPUSCULAR HGB CONC 33.8 g/dl (32-36); MEAN PLATELET VOLUME 10.1 fL (7.4-10.4); MONO % 9.3 %; NEUT % 81.1 %; PLATELET COUNT 251 K/uL (130-400); RED BLOOD COUNT 4.52 M/uL (4.2-5.4)
[2016-04-19 14:55] LABS: URINE APPEARANCE CLEAR (CLEAR); URINE BILIRUBIN NEG (NEG); URINE COLOR YELLOW; URINE EPITHELIAL CELL AUTO 0-5 /lpf (0-5); URINE NITRITE NEG (NEG); URINE SPECIFIC GRAVITY 1.002 (1.000-1.030); UROBILINOGEN NEG (NEG)
--- NOTE | 2016-04-19 14:56 | DIAGNOSTIC IMAGING REPORT ---
CHEST ONE VIEW PORTABLE CLINICAL HISTORY: GI bleed. COMPARISON STUDY: Chest radiograph April 18, 2016. FINDINGS: A dual lead left subclavian pacemaker is unchanged in position. There is no pneumothorax or pleural effusion. Moderate cardiomegaly is unchanged. There is pulmonary vascular congestion without overt pulmonary edema. There is a suspected trace right pleural effusion. No consolidation is identified. Patient is rotated. IMPRESSION: 1. Pulmonary vascular congestion without overt pulmonary edema. 2. Trace right pleural effusion. Electronically signed by: Piotr Ly M.D. 04/19/2016 2:55 PM Dictated Date/Time: 04/19/2016 2:54 PM
[2016-04-19 14:59] LABS: MANUAL MICROSCOPIC REQUIRED? NO; REVIEW REQ? NO
[2016-04-19 15:24] LABS: ALKALINE PHOSPHATASE 156 U/L (45-117); ALT/SGPT 97 U/L (12-78); BLOOD UREA NITROGEN 23 mg/dl (7-18); BUN/CREATININE RATIO 23.2 (10-20); CARBON DIOXIDE 21 mmol/L (21-32); CHLORIDE 108 mmol/L (98-107); GLUCOSE 86 mg/dl (70-99); SODIUM 139 mmol/L (136-145)
[2016-04-19 15:27] LABS: POTASSIUM 4.3 mmol/L (3.5-5.1)
[2016-04-19 15:39] LABS: PARTIAL THROMBOPLASTIN RATIO 1.6
[2016-04-19 15:40] LABS: PROTHROMBIN TIME (PATIENT) 40.8 SECONDS (9.0-12.0)
[2016-04-19 15:41] LABS: AST/SGOT 41 U/L (15-37); CKMB/CK RATIO 4.2 (0-3.0)
[2016-04-19 15:41] LABS: INR 3.6 (0.9-1.1)
[2016-04-19 15:43] LABS: CALCIUM 8.8 mg/dl (8.5-10.1)
--- NOTE | 2016-04-19 16:14 | DIAGNOSTIC IMAGING REPORT ---
CT ANGIOGRAPHY OF THE CHEST, PULMONARY EMBOLUS PROTOCOL CLINICAL HISTORY: Chest pain. Shortness of breath. Hypoxia. COMPARISON STUDY: Chest radiograph April 18, 2016 and April 19, 2016. TECHNIQUE: Following IV administration of 116 mL of Optiray-320, helical axial images of the chest were obtained utilizing the pulmonary embolus protocol. Maximal intensity projections and sagittal and coronal reformats were viewed on an independent 3D workstation. IV contrast was administered without complication. CT DOSE: 594.98 mGycm FINDINGS: No pulmonary emboli are identified. The heart is moderately enlarged. A left subclavian pacemaker is in place. There is no pericardial effusion. A trace right pleural effusion is present. There is no pneumothorax. Right lower lobe opacity favors atelectasis. Central airways are patent. There is mild mucus within the trachea. There is mild emphysema. A 3 mm left upper lobe nodule is noted on image 251 of 298. There is no consolidation to suggest pneumonia. The bony thorax is unremarkable. There is mild nodularity of the liver surface. There is moderate atherosclerotic plaque of the thoracic aorta. IMPRESSION: 1. No pulmonary emboli identified. 2. Trace right pleural effusion. 3. Groundglass opacity within the right lower lobe suggestive of atelectasis. No consolidation to suggest pneumonia. 4. Moderate cardiomegaly. 5. Mild emphysema. 6. 3 mm left upper lobe nodule. This is likely benign but a follow-up chest CT in 6 months to ensure stability is recommended. Electronically signed by: Piotr Ly M.D. 04/19/2016 4:12 PM Dictated Date/Time: 04/19/2016 4:05 PM
[2016-04-19] MEDS ORDERED: FUROSEMIDE 40 MG/4 ML VIAL IV STA (16:28)
--- NOTE | 2016-04-19 16:57 | DIAGNOSTIC IMAGING REPORT ---
BILATERAL LOWER EXTREMITY VENOUS DOPPLER CLINICAL HISTORY: Bilateral lower extremity swelling. COMPARISON STUDY: No previous studies for comparison. TECHNIQUE: Sonography of the deep venous system of the bilateral lower extremities was performed. Compression and augmentation were evaluated. FINDINGS: The bilateral common femoral, superficial femoral and popliteal veins were compressible. Augmentation was normal. Flow was shown within the deep calf vessels. IMPRESSION: No evidence of deep venous thrombus within the bilateral lower extremities. Electronically signed by: Piotr Ly M.D. 04/19/2016 4:55 PM Dictated Date/Time: 04/19/2016 4:55 PM
--- NOTE | 2016-04-19 18:25 | History and Physical ---
History & Physical Date & Time of Service: Apr 19, 2016 at 17:47 Chief Complaint: Rectal Bleeding, SOB Primary Care Physician: Lg Rodriguez MD History of Present Illness Source: patient, family (son and neice at bedside) 75yo F just discharged yesterday after being treated for LLL pneumonia now being readmitted for BRBPR and SOB. Her PMH includes Afib with SSS s/p PPM, HTN , hypothyroidism, Grave's disease s/p thyroidectomy, restless leg syndrome, cholelithiasis, vitamind D deficiency, and hyperlipidemia. Patient was feeling quite well on discharge yesterday and reports she slept quite well overnight. She reports SOB started this morning, was not really exerting herself. SHe also reports worsening LE swelling since this morning. She does not c/o chest pain, dizziness, abdominal pain, or urinary symptoms. She did not have any significant sodium intake overnight or this morning. She reports taking her lasix 20mg as well. She also had an episode of BRBPR this morning. On her discharge, her INR was 3.8 and was instructed to hold coumadin that night which she did. She does not c /o abd pain and she has never had a colonoscopy. She does report having hemorrhoids, unclear if internal or external. Past Medical/Surgical History Medical Problems: (1) Hypertension Status: Chronic (2) Pacemaker Status: Chronic (3) Restless leg syndrome Status: Chronic PAST SURGICAL HISTORY: Includes a pacemaker placed approximately 11 years ago and a thyroidectomy for the Graves' disease in 1983. Social History Smoking Status: Current Some Day Smoker Drug Use: none Marital Status: Occupational Status: retired Immunizations History of Influenza Vaccine: No Allergies Coded Allergies: No Known Allergies (Unverified , 04/19/16) Home Medications Scheduled Atorvastatin (Lipitor), 10 MG PO DAILY Cholecalciferol (D 5000), 5,000 INTERUNIT PO DAILY Furosemide (Lasix), 20 MG PO DAILY Levofloxacin (Levofloxacin), 750 MG PO Q2D@11 Levothyroxine Sodium (Levothyroxine Sodium), 75 MCG PO DAILY Metoprolol Succ (Toprol Xl) (Toprol-Xl), 50 MG PO DAILY Potassium Chloride (Micro-K Ext Rel), 20 MEQ PO DAILY Prednisone Tab (Prednisone), 40 MG PO DAILY Ropinirole (Requip), 1 MG PO DAILY Warfarin Sod (Jantoven), 2 MG PO DAILY Review of Systems ROS as per HPI. Rest of ROS negative. Physical Exam Vital Signs Date Time Temp Pulse Resp B/P Pulse Ox O2 Delivery O2 Flow Rate FiO2 04/19/16 15:46 64 33 169/89 95 Nasal Cannula 4.0 04/19/16 14:24 67 04/19/16 14:21 93 Nasal Cannula 4.0 04/19/16 14:21 93 Nasal Cannula 4.0 04/19/16 14:10 36.5 77 32 182/119 88 Room Air NAD, aox3 proptosis (chronic), eomi, perrl, anicteric irreg irreg, no murmurs appreciated diminished breath sound with bibasilar crackles abd soft, nt/nd +BS no cva tenderness 1+ non-pitting LE edema b/l cn 2-12 grossly intact without any facial drooping Diagnostics Laboratory Results Results Past 24 Hours Test 04/19/16 14:30 04/19/16 14:35 04/19/16 15:00 Range/Units White Blood Count 15.00 4.8-10.8 K/uL Red Blood Count 4.52 4.2-5.4 M/uL Hemoglobin 14.1 12.0-16.0 g/dL Hematocrit 41.7 37-47 % Mean Corpuscular Volume 92.3 80-100 fL Mean Corpuscular Hemoglobin 31.2 25-34 pg Mean Corpuscular Hemoglobin Concent 33.8 32-36 g/dl Platelet Count 251 130-400 K/uL Mean Platelet Volume 10.1 7.4-10.4 fL Neutrophils (%) (Auto) 81.1 % Lymphocytes (%) (Auto) 6.7 % Monocytes (%) (Auto) 9.3 % Eosinophils (%) (Auto) 0.1 % Basophils (%) (Auto) 0.3 % Neutrophils # (Auto) 12.18 1.4-6.5 K/uL Lymphocytes # (Auto) 1.00 1.2-3.4 K/uL Monocytes # (Auto) 1.39 0.11-0.59 K/uL Eosinophils # (Auto) 0.01 0-0.5 K/uL Basophils # (Auto) 0.05 0-0.2 K/uL RDW Standard Deviation 47.2 36.4-46.3 fL RDW Coefficient of Variation 13.9 11.5-14.5 % Immature Granulocyte % (Auto) 2.5 % Immature Granulocyte # (Auto) 0.37 0.00-0.02 K/uL Sodium Level 139 136-145 mmol/L Potassium Level 4.3 3.5-5.1 mmol/L Chloride Level 108 98-107 mmol/L Carbon Dioxide Level 21 21-32 mmol/L Anion Gap 10.0 3-11 mmol/L Blood Urea Nitrogen 23 7-18 mg/dl Creatinine 1.00 0.60-1.20 mg/dl Est Creatinine Clear Calc Drug Dose 54.6 ml/min Estimated GFR () 62.9 Estimated GFR (Non- 54.3 BUN/Creatinine Ratio 23.2 10-20 Random Glucose 86 70-99 mg/dl Calcium Level 8.8 8.5-10.1 mg/dl Total Bilirubin 1.3 0.2-1 mg/dl Direct Bilirubin 0.5 0-0.2 mg/dl Aspartate Amino Transf (AST/SGOT) 41 15-37 U/L Alanine Aminotransferase (ALT/SGPT) 97 12-78 U/L Alkaline Phosphatase 156 45-117 U/L Total Creatine Kinase 271 26-192 U/L Creatine Kinase MB 11.5 0.5-3.6 ng/ml Creatine Kinase MB Ratio 4.2 0-3.0 Troponin I < 0.015 0-0.045 ng/ml Pro-B-Type Natriuretic Peptide 7141 0-1800 pg/ml Total Protein 7.0 6.4-8.2 gm/dl Albumin 3.0 3.4-5.0 gm/dl Lipase 134 73-393 U/L Urine Color YELLOW Urine Appearance CLEAR CLEAR Urine pH 5.0 4.5-7.5 Urine Specific Taylor 1.002 1.000-1.030 Urine Protein NEG NEG Urine Glucose (UA) NEG NEG Urine Ketones NEG NEG Urine Occult Blood 1+ NEG Urine Nitrite NEG NEG Urine Bilirubin NEG NEG Urine Urobilinogen NEG NEG Urine Leukocyte Esterase NEG NEG Urine WBC (Auto) 0 0-5 /hpf Urine RBC (Auto) 0-4 0-4 /hpf Urine Hyaline Casts (Auto) 1-5 0-5 /lpf Urine Epithelial Cells (Auto) 0-5 0-5 /lpf Urine Bacteria (Auto) NEG NEG Prothrombin Time 40.8 9.0-12.0 SECONDS Prothromb Time International Ratio 3.6 0.9-1.1 Activated Partial Thromboplast Time 41.4 21.0-31.0 SECONDS Partial Thromboplastin Ratio 1.6 Microbiology Results 04/19/16 Urine Culture, Received Pending Diagnostic Radiology CLINICAL HISTORY: Bilateral lower extremity swelling. COMPARISON STUDY: No previous studies for comparison. TECHNIQUE: Sonography of the deep venous system of the bilateral lower extremities was performed. Compression and augmentation were evaluated. FINDINGS: The bilateral common femoral, superficial femoral and popliteal veins were compressible. Augmentation was normal. Flow was shown within the deep calf vessels. IMPRESSION: No evidence of deep venous thrombus within the bilateral lower extremities. Electronically signed by: Piotr Ly M.D. 04/19/2016 4:55 PM Dictated Date/Time: 04/19/2016 4:55 PM CHEST ONE VIEW PORTABLE CLINICAL HISTORY: GI bleed. COMPARISON STUDY: Chest radiograph April 18, 2016. FINDINGS: A dual lead left subclavian pacemaker is unchanged in position. There is no pneumothorax or pleural effusion. Moderate cardiomegaly is unchanged. There is pulmonary vascular congestion without overt pulmonary edema. There is a suspected trace right pleural effusion. No consolidation is identified. Patient is rotated. IMPRESSION: 1. Pulmonary vascular congestion without overt pulmonary edema. 2. Trace right pleural effusion. Electronically signed by: Piotr Ly M.D. 04/19/2016 2:55 PM Dictated Date/Time: 04/19/2016 2:[address] ANGIOGRAPHY OF THE CHEST, PULMONARY EMBOLUS PROTOCOL CLINICAL HISTORY: Chest pain. Shortness of breath. Hypoxia. COMPARISON STUDY: Chest radiograph April 18, 2016 and April 19, 2016. TECHNIQUE: Following IV administration of 116 mL of Optiray-320, helical axial images of the chest were obtained utilizing the pulmonary embolus protocol. Maximal intensity projections and sagittal and coronal reformats were viewed on an independent 3D workstation. IV contrast was administered without complication. CT DOSE: 594.98 mGycm FINDINGS: No pulmonary emboli are identified. The heart is moderately enlarged. A left subclavian pacemaker is in place. There is no pericardial effusion. A trace right pleural effusion is present. There is no pneumothorax. Right lower lobe opacity favors atelectasis. Central airways are patent. There is mild mucus within the trachea. There is mild emphysema. A 3 mm left upper lobe nodule is noted on image 251 of 298. There is no consolidation to suggest pneumonia. The bony thorax is unremarkable. There is mild nodularity of the liver surface. There is moderate atherosclerotic plaque of the thoracic aorta. IMPRESSION: 1. No pulmonary emboli identified. 2. Trace right pleural effusion. 3. Groundglass opacity within the right lower lobe suggestive of atelectasis. No consolidation to suggest pneumonia. 4. Moderate cardiomegaly. 5. Mild emphysema. 6. 3 mm left upper lobe nodule. This is likely benign but a follow-up chest CT in 6 months to ensure stability is recommended. Electronically signed by: Piotr Ly M.D. 04/19/2016 4:12 PM EKG Atrial fibrillation with frequent ventricular-paced complexes Left axis deviation ST & T wave abnormality, consider anterolateral ischemia Prolonged QT Abnormal ECG When compared with ECG of 15-APR-2016 11:03, Vent. rate has decreased BY 2 BPM Confirmed by Lemuel Hughes ([id number]) on 04/19/2016 4:42:40 PM Impression Assessment and Plan 1. Pulmonary edema - possibly new-onset CHF - CTA neg PE - will check TSH, check serial cardiac enzymes, and monitor on tele - 2de - will diurese with lasix 40 mg IV bid - monitor i/o and daily weights - cardio consult 2. LE swelling - supratherapeutic INR, dopplers with DVT - CTA neg PE 3. Supratherapeutic INR - 2/2 abx therapy - will stop coumadin for now 4. BRBPR - supratherapeutic INR - never had colonoscopy - check stool occult blood - monitor h/h - will consult GI 5. Recent pneumonia - clear on CT - will hold off further abx therapy 6. Pulmonary nodule - will need a repeat CT scan in a few months as recommended above to monitor
[2016-04-19] MEDS ORDERED: PHYTONADIONE INJ 2.5 MG in SODIUM CHLORIDE 0.9% 50ML 50 ML IV SCH (19:15)
--- NOTE | 2016-04-19 21:41 | EMERGENCY ROOM VISIT NOTE ---
History Report prepared by Ayan: Jose Cruz Chaudhary Under the Supervision of: Dr. Fabian Bazan M.D. First contact with patient: 14:00 Stated Complaint: RECTAL BLEEDING History of Present Illness The patient is a 75 year old female who presents to the Emergency Room with complaints of episodes of rectal bleeding that started this morning. She saw her primary care physician today, and was diagnosed with rectal bleeding. Per EMS, the patient just was discharged from here yesterday with pneumonia and an elevated INR, and today, is having increased weakness, and shortness of breath with exertion. The patient is on Coumadin, but did not take it yesterday because her blood was a little too thin. She also complains of leg swelling and leg pain, but she currently says the pain is gone. She takes Lasix, and has restless leg syndrome. The patient says she has no history of blood clots. She does not take oxygen at home. The patient does have a pacemaker. Pt denies LOC, headache, fevers, chills, diaphoresis, visual changes, neck pain, chest pain, nausea, vomiting, abdominal pain, back pain, melena, urinary symptoms, numbness , lymphadenopathy, rash, or other complaints. Source of History: patient, family, EMS Onset: This morning Position: other (global - rectal bleeding) Timing: other (episodes) Associated Symptoms: + SOB, + weakness Note: Associated symptoms: Leg swelling, leg pain. Currently denies the leg pain. Review of Systems See HPI for pertinent positives and negatives. A total of ten systems were reviewed and were otherwise negative. Past Medical & Surgical Medical Problems: (1) GI bleed (2) Hypertension (3) Pacemaker (4) Pulmonary edema (5) Restless leg syndrome Family History Family history omitted secondary to age. Social History Smoking Status: Current Some Day Smoker Alcohol Use: occasionally Drug Use: none Marital Status: Housing Status: lives alone Occupation Status: retired Current/Historical Medications Scheduled Atorvastatin (Lipitor), 10 MG PO DAILY Cholecalciferol (D 5000), 5,000 INTERUNIT PO DAILY Furosemide (Lasix), 20 MG PO DAILY Levofloxacin (Levofloxacin), 750 MG PO Q2D@11 Levothyroxine Sodium (Levothyroxine Sodium), 75 MCG PO DAILY Metoprolol Succ (Toprol Xl) (Toprol-Xl), 50 MG PO DAILY Potassium Chloride (Micro-K Ext Rel), 20 MEQ PO DAILY Prednisone Tab (Prednisone), 40 MG PO DAILY Ropinirole (Requip), 1 MG PO DAILY Warfarin Sod (Jantoven), 2 MG PO DAILY Allergies Coded Allergies: No Known Allergies (Unverified , 04/19/16) Physical Exam Vital Signs Date Time Temp Pulse Resp B/P Pulse Ox O2 Delivery O2 Flow Rate FiO2 04/19/16 18:10 62 17 161/105 92 Nasal Cannula 4.0 04/19/16 15:46 64 33 169/89 95 Nasal Cannula 4.0 04/19/16 14:24 67 04/19/16 14:21 93 Nasal Cannula 4.0 04/19/16 14:21 93 Nasal Cannula 4.0 04/19/16 14:10 36.5 77 32 182/119 88 Room Air Physical Exam GENERAL: Awake, alert, tired and dyspneic appearing, in no distress HENT: Normocephalic, atraumatic. Oropharynx unremarkable. EYES: Normal conjunctiva. Sclera non-icteric. NECK: Supple. No nuchal rigidity. FROM. No JVD. RESPIRATORY: Hypoxia noted on monitoring. CARDIAC: Regular rate, normal rhythm. Extremities warm and well perfused. Pulses equal. ABDOMEN: Soft, non-distended. No tenderness to palpation. No rebound or guarding. No masses. RECTAL: Deferred. MUSCULOSKELETAL: Chest examination reveals no tenderness. The back is symmetrical on inspection without obvious abnormality. There is no CVA tenderness to palpation. No joint edema. LOWER EXTREMITIES: 2+ lower extremity edema, left greater than right. Left calf tenderness. No discoloration. NEURO: Normal sensorium. No sensory or motor deficits noted. SKIN: No rash or jaundice noted. Medical Decision & Procedures ER Provider Diagnostic Interpretation: X ray results as stated below per my interpretation and radiologist interpretation. Other radiology results as stated below per my review and radiologist interpretation CT ANGIOGRAPHY OF THE CHEST, PULMONARY EMBOLUS PROTOCOL CLINICAL HISTORY: Chest pain. Shortness of breath. Hypoxia. COMPARISON STUDY: Chest radiograph April 18, 2016 and April 19, 2016. TECHNIQUE: Following IV administration of 116 mL of Optiray-320, helical axial images of the chest were obtained utilizing the pulmonary embolus protocol. Maximal intensity projections and sagittal and coronal reformats were viewed on an independent 3D workstation. IV contrast was administered without complication. CT DOSE: 594.98 mGycm FINDINGS: No pulmonary emboli are identified. The heart is moderately enlarged. A left subclavian pacemaker is in place. There is no pericardial effusion. A trace right pleural effusion is present. There is no pneumothorax. Right lower lobe opacity favors atelectasis. Central airways are patent. There is mild mucus within the trachea. There is mild emphysema. A 3 mm left upper lobe nodule is noted on image 251 of 298. There is no consolidation to suggest pneumonia. The bony thorax is unremarkable. There is mild nodularity of the liver surface. There is moderate atherosclerotic plaque of the thoracic aorta. IMPRESSION: 1. No pulmonary emboli identified. 2. Trace right pleural effusion. 3. Groundglass opacity within the right lower lobe suggestive of atelectasis. No consolidation to suggest pneumonia. 4. Moderate cardiomegaly. 5. Mild emphysema. 6. 3 mm left upper lobe nodule. This is likely benign but a follow-up chest CT in 6 months to ensure stability is recommended. Electronically signed by: Piotr Ly M.D. 04/19/2016 4:12 PM Dictated Date/Time: 04/19/2016 4:05 PM CHEST ONE VIEW PORTABLE CLINICAL HISTORY: GI bleed. COMPARISON STUDY: Chest radiograph April 18, 2016. FINDINGS: A dual lead left subclavian pacemaker is unchanged in position. There is no pneumothorax or pleural effusion. Moderate cardiomegaly is unchanged. There is pulmonary vascular congestion without overt pulmonary edema. There is a suspected trace right pleural effusion. No consolidation is identified. Patient is rotated. IMPRESSION: 1. Pulmonary vascular congestion without overt pulmonary edema. 2. Trace right pleural effusion. Electronically signed by: Piotr Ly M.D. 04/19/2016 2:55 PM Dictated Date/Time: 04/19/2016 2:54 PM Laboratory Results 04/19/16 14:30 Red Blood Count 4.52, Mean Corpuscular Volume 92.3, Mean Corpuscular Hemoglobin 31.2, Mean Corpuscular Hemoglobin Concent 33.8, Mean Platelet Volume 10.1, Neutrophils (%) (Auto) 81.1, Lymphocytes (%) (Auto) 6.7, Monocytes (%) (Auto) 9.3, Eosinophils (%) (Auto) 0.1, Basophils (%) (Auto) 0.3, Neutrophils # (Auto) 12.18, Lymphocytes # (Auto) 1.00, Monocytes # (Auto) 1.39, Eosinophils # (Auto) 0.01, Basophils # (Auto) 0.05 04/19/16 14:30 Test 04/19/16 14:30 04/19/16 14:35 04/19/16 15:00 White Blood Count 15.00 K/uL (4.8-10.8) Red Blood Count 4.52 M/uL (4.2-5.4) Hemoglobin 14.1 g/dL (12.0-16.0) Hematocrit 41.7 % (37-47) Mean Corpuscular Volume 92.3 fL (80-100) Mean Corpuscular Hemoglobin 31.2 pg (25-34) Mean Corpuscular Hemoglobin Concent 33.8 g/dl (32-36) Platelet Count 251 K/uL (130-400) Mean Platelet Volume 10.1 fL (7.4-10.4) Neutrophils (%) (Auto) 81.1 % Lymphocytes (%) (Auto) 6.7 % Monocytes (%) (Auto) 9.3 % Eosinophils (%) (Auto) 0.1 % Basophils (%) (Auto) 0.3 % Neutrophils # (Auto) 12.18 K/uL (1.4-6.5) Lymphocytes # (Auto) 1.00 K/uL (1.2-3.4) Monocytes # (Auto) 1.39 K/uL (0.11-0.59) Eosinophils # (Auto) 0.01 K/uL (0-0.5) Basophils # (Auto) 0.05 K/uL (0-0.2) RDW Standard Deviation 47.2 fL (36.4-46.3) RDW Coefficient of Variation 13.9 % (11.5-14.5) Immature Granulocyte % (Auto) 2.5 % Immature Granulocyte # (Auto) 0.37 K/uL (0.00-0.02) Anion Gap 10.0 mmol/L (3-11) Est Creatinine Clear Calc Drug Dose 54.6 ml/min Estimated GFR () 62.9 Estimated GFR (Non- 54.3 BUN/Creatinine Ratio 23.2 (10-20) Calcium Level 8.8 mg/dl (8.5-10.1) Total Bilirubin 1.3 mg/dl (0.2-1) Direct Bilirubin 0.5 mg/dl (0-0.2) Aspartate Amino Transf (AST/SGOT) 41 U/L (15-37) Alanine Aminotransferase (ALT/SGPT) 97 U/L (12-78) Alkaline Phosphatase 156 U/L (45-117) Total Creatine Kinase 271 U/L (26-192) Creatine Kinase MB 11.5 ng/ml (0.5-3.6) Creatine Kinase MB Ratio 4.2 (0-3.0) Troponin I < 0.015 ng/ml (0-0.045) Pro-B-Type Natriuretic Peptide 7141 pg/ml (0-1800) Total Protein 7.0 gm/dl (6.4-8.2) Albumin 3.0 gm/dl (3.4-5.0) Lipase 134 U/L (73-393) Thyroid Stimulating Hormone (TSH) 3.210 uIu/ml (0.300-4.500) Urine Color YELLOW Urine Appearance CLEAR (CLEAR) Urine pH 5.0 (4.5-7.5) Urine Specific House 1.002 (1.000-1.030) Urine Protein NEG (NEG) Urine Glucose (UA) NEG (NEG) Urine Ketones NEG (NEG) Urine Occult Blood 1+ (NEG) Urine Nitrite NEG (NEG) Urine Bilirubin NEG (NEG) Urine Urobilinogen NEG (NEG) Urine Leukocyte Esterase NEG (NEG) Urine WBC (Auto) 0 /hpf (0-5) Urine RBC (Auto) 0-4 /hpf (0-4) Urine Hyaline Casts (Auto) 1-5 /lpf (0-5) Urine Epithelial Cells (Auto) 0-5 /lpf (0-5) Urine Bacteria (Auto) NEG (NEG) Prothrombin Time 40.8 SECONDS (9.0-12.0) Prothromb Time International Ratio 3.6 (0.9-1.1) Activated Partial Thromboplast Time 41.4 SECONDS (21.0-31.0) Partial Thromboplastin Ratio 1.6 Laboratory results reviewed by me Medications Administered Medications (Trade) Dose Ordered Sig/Angeles Route Start Time Stop Time Status Last Admin Dose Admin Furosemide (Lasix Inj) 40 mg NOW STAT IV 04/19/16 16:28 04/19/16 16:29 DC 04/19/16 17:14 40 MG ECG Indication: other (rectal bleeding) Rate (beats per minute): 67 Rhythm: atrial fibrillation (with paced complexes) Findings: T-wave inversion (Anterior), prolonged QT ED Course 1404: The patient was evaluated in room C4. A complete history and physical exam was performed. 1628: Ordered Lasix Inj 40 mg IV. 1636: I discussed the patient with Dr. Deepika SEGURA hospitalist - he will evaluate the patient for further treatment. 1745: Upon reexamination, the patient was resting comfortably. I discussed the test results and treatment plan with her. The patient will be evaluated for further management. Medical Decision Triage Nursing notes reviewed. The patient's presentation and history were concerning for GI bleeding and shortness of breath. Etiologies such as CHF, pneumonia, PE, cardiac sources, diverticulosis, AVM, coagulopathy, colitis, inflammatory bowel disease, malignancy,Mimi-Camargo tear , esophagitis, peptic ulcer disease, variceal bleed, gastritis, epistaxis, fissure, hemorrhoids, as well as others were entertained. The patient was evaluated. Her rectal bleeding and stop. She had episode this morning and then this was confirmed at her PCPs office. The patient was short of breath. Review indicates patient was admitted for pneumonia. She had blood work obtained. She had a leukocytosis of 15,000. Urinalysis was unremarkable. Her INR was slightly supratherapeutic at 3.6. Patient had a BNP that was significantly elevated concerning for some CHF. Creatinine was normal. LFTs were mildly elevated. Lipase was negative. Ultrasound imaging did not show any evidence of blood clot. The patient had no evidence of PE or pneumonia. The patient was given IV Lasix. She will need further evaluation and management in the hospital. I did consult with internal medicine. The patient was evaluated in the Emergency Room for further treatment. The chart was completed utilizing [email or web address] Speech voice recognition software. Grammatical errors, random word insertions, pronoun errors, and incomplete sentences are an occasional consequence of this system due to software limitations, ambient noise, and hardware issues. Any formal questions or concerns about the content, text, or information contained within the body of this dictation should be directly addressed to the physician for clarification. Consults Time Called: 1634 Consulting Physician: Dr. Deepika SEGURA hospitalist Returned Call: 1636 I discussed the patient with Dr. Deepika SEGURA hospitalist - he will evaluate the patient for further treatment. Impression Primary Impression: GI bleed Additional Impressions: Supratherapeutic INR CHF (congestive heart failure) Scribe Attestation The scribe's documentation has been prepared under my direction and personally reviewed by me in its entirety. I confirm that the note above accurately reflects all work, treatment, procedures, and medical decision making performed by me. Departure Information Dispostion Being Evaluated By Hospitalist Referrals Lg Rodriguez MD (PCP) Problem Qualifiers
[2016-04-19 22:46] LABS: HEMATOCRIT 42.3 % (37-47)
[2016-04-19] MEDS ORDERED: NURSING VERBAL MED ORDER ONE (23:00)
[2016-04-19] MEDS ORDERED: LAVAGE SOLUTION 4000ML PO SCH (23:30)
[2016-04-20 04:00] VITALS: BP 150/80; PULSE 70; TEMP 36.4; O2SAT 98
[2016-04-20 05:07] LABS: INR 1.7 (0.9-1.1); PROTHROMBIN TIME (PATIENT) 18.2 SECONDS (9.0-12.0)
[2016-04-20] MEDS: FUROSEMIDE INJ 40 MG in SYRINGE 0 ML IV SCH ×2 (05:54→17:33)
[2016-04-20 06:26] LABS: BASO % 0.3 %; BASO ABS # 0.04 K/uL (0-0.2); COMPLETE YES; EOS % 0.1 %; HEMATOCRIT 42.1 % (37-47); IG% 3.2 %; MEAN CELL VOLUME 92.9 fL (80-100); MEAN CORPUSCULAR HEMOGLOBIN 32.7 pg (25-34); MEAN CORPUSCULAR HGB CONC 35.2 g/dl (32-36); MEAN PLATELET VOLUME 9.9 fL (7.4-10.4); MONO % 11.2 %; NEUT % 73.2 %; PLATELET COUNT 253 K/uL (130-400); RED BLOOD COUNT 4.53 M/uL (4.2-5.4); WHITE BLOOD COUNT 15.06 K/uL (4.8-10.8)
[2016-04-20] MEDS: LEVOTHYROXINE 75 MCG TAB PO SCH (06:36)
[2016-04-20 07:03] LABS: ALB/GLOB RATIO 0.8 (0.9-2); ALKALINE PHOSPHATASE 154 U/L (45-117); ALT/SGPT 103 U/L (12-78); AST/SGOT 47 U/L (15-37); BLOOD UREA NITROGEN 20 mg/dl (7-18); BUN/CREATININE RATIO 16.8 (10-20); CALCIUM 8.6 mg/dl (8.5-10.1); CARBON DIOXIDE 29 mmol/L (21-32); CHLORIDE 99 mmol/L (98-107); CHOLESTEROL 148 mg/dl (0-200); CHOLESTEROL/HDL RATIO 3.2; GLUCOSE 66 mg/dl (70-99); HDL CHOLESTEROL 46 mg/dl; LDL CHOLESTEROL CALCULATED 68 mg/dl; MAGNESIUM 2.2 mg/dl (1.8-2.4); POTASSIUM 3.6 mmol/L (3.5-5.1); SODIUM 138 mmol/L (136-145); TRIGLYCERIDES 172 mg/dl (0-150); VERY LOW DENSITY LIPOPROT CALC 34 mg/dl
[2016-04-20 07:29] VITALS: BP 125/85; PULSE 78; TEMP 36.3; O2SAT 98
[2016-04-20] MEDS: METOPROLOL SUCC 50MG EXT REL TAB PO SCH (08:40)
[2016-04-20] MEDS: ATORVASTATIN 10 MG TAB PO SCH (08:41)
[2016-04-20] MEDS: POTASSIUM CHLORIDE 20 MEQ TABCR PO SCH (08:42)
[2016-04-20] MEDS ORDERED: NURSING VERBAL MED ORDER ONE (08:45)
--- NOTE | 2016-04-20 08:50 | GASTROINTESTINAL CONSULTATION ---
DATE OF CONSULTATION: 04/19/2016 This is a brief consult note. I was consulted, the patient recently discharged from the hospital with pneumonia, for bright red blood per rectum. The patient was discharged within the last 48 hours. Evaluation was believed not to represent hemorrhoidal bleeding. Hemoglobin was stable last evening. I did speak with the nurse late evening, and given the patient's overall stable status hemodynamically as well as hemoglobin, the patient will be evaluated with tentative plans for colonoscopy and upper endoscopy on Saturday. This will require checking coagulation status which is currently at 3.6. The patient did receive vitamin K to reverse the agent. We will tentatively plan for colonoscopy and order GoLYTELY prep, n.p.o. after midnight except meds for testing tomorrow. Chemistry: BUN is 20, creatinine 1.2. Full consultation report is forthcoming.
[2016-04-20 08:51] VITALS: BP 125/85; PULSE 78; TEMP 36.3; O2SAT 98
[2016-04-20] MEDS ORDERED: PANTOprazole INJ 40 MG in SYRINGE 0 ML IV SCH (09:00)
[2016-04-20] MEDS ORDERED: ROPINIROLE HCL 1 MG TAB PO SCH (09:00)
--- NOTE | 2016-04-20 10:25 | Gastroenterology Progress Note ---
Progress Note Date of Service: Apr 20, 2016 Subjective Pt evaluation today including: conversation w/ patient, physical exam, chart review, lab review, review of studies, review of inpatient medication list CC bright red rectal bleeding HPI Pt with pneumonia and DCed day before. Pt admitted for bright red rectal bleeding an INR 3.6. Hgb 14.1 then 14.8 this am. No further bleeding since admit and stool sent was heme negative. She denies abd pain. Medications Current Inpatient Medications Medications (Trade) Dose Ordered Sig/Angeles Route Start Time Stop Time Status Last Admin Dose Admin Ioversol (Optiray 320) 100 ml UD PRN IV 04/19/16 14:30 04/23/16 14:29 Atorvastatin Calcium (Lipitor Tab) 10 mg DAILY PO 04/20/16 09:00 05/20/16 08:59 04/20/16 08:41 10 MG Levothyroxine Sodium (Synthroid Tab) 75 mcg DAILYBB PO 04/20/16 06:30 05/20/16 06:59 04/20/16 06:36 75 MCG Metoprolol Succinate (Toprol Xl Tab) 50 mg DAILY PO 04/20/16 09:00 05/20/16 08:59 04/20/16 08:40 50 MG Potassium Chloride (Klor-Con Tab) 20 meq DAILY PO 04/20/16 09:00 05/20/16 08:59 04/20/16 08:42 20 MEQ Prednisone 40 mg 40 mg DAILY PO 04/20/16 09:00 05/20/16 08:59 04/20/16 08:41 40 MG Furosemide 40 mg/ Syringe 4 ml @ 4 mls/min Q12@0600,1800 IV 04/20/16 06:00 05/20/16 05:59 04/20/16 05:54 4 MLS/MIN Pantoprazole Sodium/Syringe (Protonix Inj/ Syringe) 10 ml @ 5 mls/min BID@0900,2100 IV 04/20/16 09:00 05/20/16 08:59 04/20/16 08:40 5 MLS/MIN Ropinirole HCl (Requip Tab) 1 mg HS PO 04/20/16 21:00 05/20/16 20:59 Objective Vital Signs Date Time Temp Pulse Resp B/P Pulse Ox O2 Delivery O2 Flow Rate FiO2 04/20/16 09:27 36 68 18 142/85 96 Nasal Cannula 3 04/20/16 08:51 36.3 78 16 125/85 98 Nasal Cannula 3.0 04/20/16 08:00 Nasal Cannula 3.0 04/20/16 07:29 36.3 78 16 125/85 98 Nasal Cannula 3.0 04/20/16 04:00 Nasal Cannula 3.0 04/20/16 04:00 36.4 70 18 150/80 98 Nasal Cannula 3.0 04/20/16 00:00 Nasal Cannula 3.0 04/19/16 23:18 36.4 73 22 167/103 96 Nasal Cannula 4.0 04/19/16 21:31 36.2 64 24 158/80 98 Nasal Cannula 3.0 04/19/16 21:04 36.3 65 20 148/86 98 Nasal Cannula 4.0 04/19/16 20:57 35.8 67 18 147/95 97 Nasal Cannula 4.0 04/19/16 20:53 36.1 04/19/16 20:45 64 18 169/101 96 Nasal Cannula 4.0 04/19/16 19:45 35.8 67 18 147/95 97 Nasal Cannula 4.0 04/19/16 19:18 68 34 172/93 96 04/19/16 18:10 62 17 161/105 92 Nasal Cannula 4.0 04/19/16 15:46 64 33 169/89 95 Nasal Cannula 4.0 04/19/16 14:24 67 04/19/16 14:21 93 Nasal Cannula 4.0 04/19/16 14:21 93 Nasal Cannula 4.0 04/19/16 14:10 36.5 77 32 182/119 88 Room Air Physical Exam General Appearance: WD/WN, no apparent distress Respiratory/Chest: lungs clear, normal breath sounds Cardiovascular: regular rate, rhythm, no murmur Abdomen: normal bowel sounds, non tender, soft, no organomegaly Neurologic/Psych: normal mood/affect, oriented x 3 Laboratory Results Last 24 Hours Test 04/19/16 14:30 04/19/16 14:35 04/19/16 15:00 04/19/16 22:15 White Blood Count 15.00 K/uL Red Blood Count 4.52 M/uL Hemoglobin 14.1 g/dL 14.7 g/dL Hematocrit 41.7 % 42.3 % Mean Corpuscular Volume 92.3 fL Mean Corpuscular Hemoglobin 31.2 pg Mean Corpuscular Hemoglobin Concent 33.8 g/dl Platelet Count 251 K/uL Mean Platelet Volume 10.1 fL Neutrophils (%) (Auto) 81.1 % Lymphocytes (%) (Auto) 6.7 % Monocytes (%) (Auto) 9.3 % Eosinophils (%) (Auto) 0.1 % Basophils (%) (Auto) 0.3 % Neutrophils # (Auto) 12.18 K/uL Lymphocytes # (Auto) 1.00 K/uL Monocytes # (Auto) 1.39 K/uL Eosinophils # (Auto) 0.01 K/uL Basophils # (Auto) 0.05 K/uL RDW Standard Deviation 47.2 fL RDW Coefficient of Variation 13.9 % Immature Granulocyte % (Auto) 2.5 % Immature Granulocyte # (Auto) 0.37 K/uL Sodium Level 139 mmol/L Potassium Level 4.3 mmol/L Chloride Level 108 mmol/L Carbon Dioxide Level 21 mmol/L Anion Gap 10.0 mmol/L Blood Urea Nitrogen 23 mg/dl Creatinine 1.00 mg/dl Est Creatinine Clear Calc Drug Dose 54.6 ml/min Estimated GFR () 62.9 Estimated GFR (Non- 54.3 BUN/Creatinine Ratio 23.2 Random Glucose 86 mg/dl Calcium Level 8.8 mg/dl Total Bilirubin 1.3 mg/dl Direct Bilirubin 0.5 mg/dl Aspartate Amino Transf (AST/SGOT) 41 U/L Alanine Aminotransferase (ALT/SGPT) 97 U/L Alkaline Phosphatase 156 U/L Total Creatine Kinase 271 U/L Creatine Kinase MB 11.5 ng/ml Creatine Kinase MB Ratio 4.2 Troponin I < 0.015 ng/ml Pro-B-Type Natriuretic Peptide 7141 pg/ml Total Protein 7.0 gm/dl Albumin 3.0 gm/dl Lipase 134 U/L Thyroid Stimulating Hormone (TSH) 3.210 uIu/ml Urine Color YELLOW Urine Appearance CLEAR Urine pH 5.0 Urine Specific [place] 1.002 Urine Protein NEG Urine Glucose (UA) NEG Urine Ketones NEG Urine Occult Blood 1+ Urine Nitrite NEG Urine Bilirubin NEG Urine Urobilinogen NEG Urine Leukocyte Esterase NEG Urine WBC (Auto) 0 /hpf Urine RBC (Auto) 0-4 /hpf Urine Hyaline Casts (Auto) 1-5 /lpf Urine Epithelial Cells (Auto) 0-5 /lpf Urine Bacteria (Auto) NEG Prothrombin Time 40.8 SECONDS Prothromb Time International Ratio 3.6 Activated Partial Thromboplast Time 41.4 SECONDS Partial Thromboplastin Ratio 1.6 Test 04/20/16 00:00 04/20/16 00:25 04/20/16 04:40 04/20/16 06:07 Stool Occult Blood NEGATIVE Troponin I < 0.015 ng/ml < 0.015 ng/ml Prothrombin Time 18.2 SECONDS Prothromb Time International Ratio 1.7 White Blood Count 15.06 K/uL Red Blood Count 4.53 M/uL Hemoglobin 14.8 g/dL Hematocrit 42.1 % Mean Corpuscular Volume 92.9 fL Mean Corpuscular Hemoglobin 32.7 pg Mean Corpuscular Hemoglobin Concent 35.2 g/dl Platelet Count 253 K/uL Mean Platelet Volume 9.9 fL Neutrophils (%) (Auto) 73.2 % Lymphocytes (%) (Auto) 12.0 % Monocytes (%) (Auto) 11.2 % Eosinophils (%) (Auto) 0.1 % Basophils (%) (Auto) 0.3 % Neutrophils # (Auto) 11.04 K/uL Lymphocytes # (Auto) 1.80 K/uL Monocytes # (Auto) 1.68 K/uL Eosinophils # (Auto) 0.02 K/uL Basophils # (Auto) 0.04 K/uL RDW Standard Deviation 46.6 fL RDW Coefficient of Variation 13.7 % Immature Granulocyte % (Auto) 3.2 % Immature Granulocyte # (Auto) 0.48 K/uL Sodium Level 138 mmol/L Potassium Level 3.6 mmol/L Chloride Level 99 mmol/L Carbon Dioxide Level 29 mmol/L Anion Gap 10.0 mmol/L Blood Urea Nitrogen 20 mg/dl Creatinine 1.20 mg/dl Est Creatinine Clear Calc Drug Dose 44.2 ml/min Estimated GFR () 50.5 Estimated GFR (Non- 43.6 BUN/Creatinine Ratio 16.8 Random Glucose 66 mg/dl Calcium Level 8.6 mg/dl Magnesium Level 2.2 mg/dl Total Bilirubin 1.6 mg/dl Aspartate Amino Transf (AST/SGOT) 47 U/L Alanine Aminotransferase (ALT/SGPT) 103 U/L Alkaline Phosphatase 154 U/L Total Protein 7.0 gm/dl Albumin 3.1 gm/dl Globulin 3.9 gm/dl Albumin/Globulin Ratio 0.8 Triglycerides Level 172 mg/dl Cholesterol Level 148 mg/dl HDL Cholesterol 46 mg/dl LDL Cholesterol, Calculated 68 mg/dl VLDL Cholesterol, Calculated 34 mg/dl Cholesterol/HDL Ratio 3.2 Assessment and Plan Consult to be dictated. Bright red rectal bleeding--most likely lower but given ongoing need for coumadin will do EGD and colonoscopy today. Procedures and risks explained to patient which include but not limited to medication reaction, bleeding, perforation, aspiration, missed lesions. elevate LFTs--perhaps from liver congestin from CHF--follow and if not resolved then outpt workup coumadin coagulopathy---corrected to 1.7 for procedure. elevated WBC--no abd pain to suggest GI process--defer to hospitalist lung nodule--defer to hospitalist
[2016-04-20] MEDS ORDERED: LIDOCAINE HCL 2% 2 ML VIAL (20MG/ML) ONE (10:27)
[2016-04-20] MEDS ORDERED: PROPOFOL IV EMULSION 10 MG/ML 20 ML VIAL IV ONE (10:27)
--- NOTE | 2016-04-20 10:28 | CARDIOLOGY CONSULTATION ---
DATE OF CONSULTATION: 04/20/2016 DATE OF CONSULTATION: 04/20/2016. PERTINENT HISTORY: Mrs. Zhang is a 75-year-old white female admitted yesterday with rectal bleeding. This consultation was obtained to assist in her cardiac management. The patient is well known to me from the outpatient setting as I follower her pacemaker. The patient was just admitted here from April 15 through April 18 with left lower lobe pneumonia. The patient was sent home but developed rectal bleeding as described above. The patient has not experienced angina pectoris or dyspnea. She further denies syncope, presyncope, PND, orthopnea, palpitations, lower extremity edema, and claudication. The patient's cardiac history began back in August of 2004 when she had a permanent pacemaker placed for the tachycardia/bradycardia syndrome. She has been maintained on Coumadin since that time. She did have a pacemaker generator change in January 2013. The patient also carries history of diastolic congestive heart failure. There has been no recent decompensation. Currently, the patient is resting comfortably in the wheelchair. She offers no complaints. PAST MEDICAL HISTORY: 1. Hypertension. 2. Hypercholesterolemia. 3. History of diastolic congestive heart failure. 4. Tachycardia/bradycardia syndrome. 5. Permanent atrial fibrillation. 6. VVI pacemaker -- 08/2004, 01/2013. 7. History of Graves' disease. 8. Thyroidectomy. 9. Graves' ophthalmopathy. 10. Iatrogenic hypothyroidism. 11. Cholelithiasis. 12. Vitamin D deficiency. 13. Restless leg syndrome. 14. Bilateral intraocular lens implants. 15. Venous insufficiency. MEDICATIONS: 1. Toprol-XL 50 mg daily. 2. Lasix 40 mg IV q. 12 hour. 3. Lipitor 10 mg at bedtime. 4. Potassium 20 mg daily. 5. Prednisone 40 mg per day. 6. Synthroid 0.075 mg daily. 7. Requip 1 mg at bedtime. ALLERGIES: None. SOCIAL HISTORY: The patient is a . Stopped tobacco use 1 year ago. Carries a 27-tmdi-hpmi history. Does not use alcohol. FAMILY HISTORY: Mother at age 69 from a lymphoma. Father at age 57 from an CA. Two sisters from carcinoma. REVIEW OF SYSTEMS: A 10-point review of systems was negative except for that described above. PHYSICAL EXAMINATION: GENERAL: This is a well-developed, well-nourished white female in no acute distress. VITAL SIGNS: Blood pressure is 125/85 with a regular pulse of 78. Respiratory rate is 16. The patient is afebrile at 36.3 degrees Celsius. Saturation is 98% on 3 liters nasal cannula. HEAD, EYES, EARS, NOSE, AND THROAT EXAMINATION: Notes bilateral exophthalmus. NECK: Supple with full carotid upstrokes. No carotid bruits. Jugular venous pressure is flat at 90 degrees. There is no thyromegaly. CARDIOVASCULAR EXAMINATION: Reveals an irregular rhythm with distant heart sounds. No obvious murmurs. LUNGS: Clear without rales, rhonchi, or wheezes. ABDOMEN: Soft, nontender without bruits. EXTREMITIES: Reveal intact radial artery pulses bilaterally. Trace pretibial edema is noted. LABORATORY DATA: CBC notes a hemoglobin of 14.8, hematocrit 42.1, white count 15.0, platelet count 253,000. Electrolytes note a sodium of 138, potassium 3.6, chloride 99, bicarbonate 29, BUN 20, creatinine 1.2, glucose 66. Three troponin I levels are undetectable at less than 0.015. CK is 271 with an MB fraction of 11.5. BNP is elevated at 7,141. INR was 3.6 on presentation, currently 1.7 after vitamin K administered. TSH level is normal at 3.2. EKG notes atrial fibrillation with an appropriate ventricular pacing. There is a left axis deviation and anterolateral T-wave abnormality. This is unchanged from the tracing done on 04/15/2016. CT scan of the chest notes no pulmonary emboli. There is cardiomegaly and evidence of emphysema. A 3 mm left upper lobe nodule is noted. No evidence of congestive changes. IMPRESSION: Mrs. Zhang was admitted with lower GI bleeding. Her workup is currently underway. She does not appear to be in decompensated congestive failure at this time. She does carry history of diastolic congestive heart failure previously. Agree with intravenous diuretics for now, but would follow renal function closely. She did have a normal pacemaker interrogation on 03/19/2016 in my office. PLAN: 1. Continue current medications. 2. Follow renal function closely while on intravenous diuretics. 3. No further cardiac evaluation indicated at this time.
[2016-04-20] MEDS ORDERED: PHENYLEPHRINE 100MCG/ML 5ML SYR ONE (11:17)
--- NOTE | 2016-04-20 11:32 | Anesthesiology Progress Note ---
Anesthesia Post Op Note Date & Time Apr 20, 2016 at 11:31 Vital Signs Pain Intensity: 0.0 Vital Signs Past 12 Hours Date Time Temp Pulse Resp B/P Pulse Ox O2 Delivery O2 Flow Rate FiO2 04/20/16 11:15 68 20 109/60 99 Mask 5 04/20/16 09:27 36 68 18 142/85 96 Nasal Cannula 3 04/20/16 08:51 36.3 78 16 125/85 98 Nasal Cannula 3.0 04/20/16 08:00 Nasal Cannula 3.0 04/20/16 07:29 36.3 78 16 125/85 98 Nasal Cannula 3.0 04/20/16 04:00 Nasal Cannula 3.0 04/20/16 04:00 36.4 70 18 150/80 98 Nasal Cannula 3.0 04/20/16 00:00 Nasal Cannula 3.0 Notes Mental Status: alert / awake / arousable, participated in evaluation Pt Amnestic to Procedure: Yes Nausea / Vomiting: adequately controlled Pain: adequately controlled Airway Patency, RR, SpO2: stable & adequate BP & HR: stable & adequate Hydration State: stable & adequate Anesthetic Complications: no major complications apparent
[2016-04-20 12:02] VITALS: BP 129/82; PULSE 67; TEMP 36.5; O2SAT 97
--- NOTE | 2016-04-20 12:56 | Progress Note ---
Subjective Date of Service: Apr 20, 2016. Subjective Pt evaluation today including: conversation w/ patient, physical exam, chart review, review of studies, review of inpatient medication list Per cardio documentation, patient has known diastolic CHF. She is doing well today, breathing had improved much. HEr LE swelling has also improved. Non-productive occasional cough. Had scoping today. No further BRBPR or dark stools. Problem List Medical Problems: (1) Bilateral pneumonia Status: Acute (2) CHF (congestive heart failure) Status: Acute (3) Hypoxia Status: Acute (4) Supratherapeutic INR Status: Acute Review of Systems All Other Systems: Reviewed and Negative Medications Atorvastatin Calcium (Lipitor Tab) 10 mg DAILY PO Last administered on 08:41; Admin Dose 10 MG; Start 04/20/16 at 09:00; Stop 05/20/16 at 08:59 Furosemide/Syringe (Lasix Inj/ Syringe) 4 ml @ 4 mls/min Q12@0600,1800 IV Last administered on 04/20/16 05:54; Admin Dose 4 MLS/MIN; Start 04/20/16 at 06:00; Stop 05/20/16 at 05:59 Ioversol (Optiray 320) 100 ml UD PRN IV; Start 04/19/16 at 14:30; Stop 04/23/16 at 14:29 Levothyroxine Sodium (Synthroid Tab) 75 mcg DAILYBB PO Last administered on 06:36; Admin Dose 75 MCG; Start 04/20/16 at 06:30; Stop 05/20/16 at 06:59 Metoprolol Succinate (Toprol Xl Tab) 50 mg DAILY PO Last administered on 08:40; Admin Dose 50 MG; Start 04/20/16 at 09:00; Stop 05/20/16 at 08:59 Pantoprazole Sodium (Protonix Tab) 40 mg BID PO; Start 04/20/16 at 21:00; Stop at 20:59 Potassium Chloride 20 meq 20 meq DAILY PO Last administered on 04/20/16 08:42; Admin Dose 20 MEQ; Start 04/20/16 at 09:00; Stop 05/20/16 at 08:59 Prednisone (PredniSONE TAB) 20 mg DAILY PO; Start 04/21/16 at 09:00; Stop at 08:59 Ropinirole HCl (Requip Tab) 1 mg HS PO; Start 04/20/16 at 21:00; Stop 05/20/16 at 20:59 Objective Vital Signs Date Time Temp Pulse Resp B/P Pulse Ox O2 Delivery O2 Flow Rate FiO2 04/20/16 12:02 36.5 67 20 129/82 97 Nasal Cannula 3.0 04/20/16 12:00 Room Air 94 04/20/16 11:45 77 20 143/83 99 Mask 5 04/20/16 11:30 69 20 107/55 98 Mask 5 04/20/16 11:15 68 20 109/60 99 Mask 5 04/20/16 09:27 36 68 18 142/85 96 Nasal Cannula 3 04/20/16 08:51 36.3 78 16 125/85 98 Nasal Cannula 3.0 04/20/16 08:00 Nasal Cannula 3.0 04/20/16 07:29 36.3 78 16 125/85 98 Nasal Cannula 3.0 04/20/16 04:00 Nasal Cannula 3.0 04/20/16 04:00 36.4 70 18 150/80 98 Nasal Cannula 3.0 04/20/16 00:00 Nasal Cannula 3.0 04/19/16 23:18 36.4 73 22 167/103 96 Nasal Cannula 4.0 04/19/16 21:31 36.2 64 24 158/80 98 Nasal Cannula 3.0 04/19/16 21:04 36.3 65 20 148/86 98 Nasal Cannula 4.0 04/19/16 20:57 35.8 67 18 147/95 97 Nasal Cannula 4.0 04/19/16 20:53 36.1 04/19/16 20:45 64 18 169/101 96 Nasal Cannula 4.0 04/19/16 19:45 35.8 67 18 147/95 97 Nasal Cannula 4.0 04/19/16 19:18 68 34 172/93 96 04/19/16 18:10 62 17 161/105 92 Nasal Cannula 4.0 04/19/16 15:46 64 33 169/89 95 Nasal Cannula 4.0 04/19/16 14:24 67 04/19/16 14:21 93 Nasal Cannula 4.0 04/19/16 14:21 93 Nasal Cannula 4.0 04/19/16 14:10 36.5 77 32 182/119 88 Room Air Physical Exam Comments: NAD, aox3, eomi, perrl, anicteric irreg irreg no murmurs appreciated right basilar chronic rales unchanged, diminished bs but no rales otherwise abd soft, nt/nd +BS 1+ LE edema improved from admission cn 2-12 grossly intact without facial drooping Laboratory Results Last 24 Hours Test 04/19/16 14:30 04/19/16 14:35 04/19/16 15:00 04/19/16 22:15 White Blood Count 15.00 K/uL Red Blood Count 4.52 M/uL Hemoglobin 14.1 g/dL 14.7 g/dL Hematocrit 41.7 % 42.3 % Mean Corpuscular Volume 92.3 fL Mean Corpuscular Hemoglobin 31.2 pg Mean Corpuscular Hemoglobin Concent 33.8 g/dl Platelet Count 251 K/uL Mean Platelet Volume 10.1 fL Neutrophils (%) (Auto) 81.1 % Lymphocytes (%) (Auto) 6.7 % Monocytes (%) (Auto) 9.3 % Eosinophils (%) (Auto) 0.1 % Basophils (%) (Auto) 0.3 % Neutrophils # (Auto) 12.18 K/uL Lymphocytes # (Auto) 1.00 K/uL Monocytes # (Auto) 1.39 K/uL Eosinophils # (Auto) 0.01 K/uL Basophils # (Auto) 0.05 K/uL RDW Standard Deviation 47.2 fL RDW Coefficient of Variation 13.9 % Immature Granulocyte % (Auto) 2.5 % Immature Granulocyte # (Auto) 0.37 K/uL Sodium Level 139 mmol/L Potassium Level 4.3 mmol/L Chloride Level 108 mmol/L Carbon Dioxide Level 21 mmol/L Anion Gap 10.0 mmol/L Blood Urea Nitrogen 23 mg/dl Creatinine 1.00 mg/dl Est Creatinine Clear Calc Drug Dose 54.6 ml/min Estimated GFR () 62.9 Estimated GFR (Non- 54.3 BUN/Creatinine Ratio 23.2 Random Glucose 86 mg/dl Calcium Level 8.8 mg/dl Total Bilirubin 1.3 mg/dl Direct Bilirubin 0.5 mg/dl Aspartate Amino Transf (AST/SGOT) 41 U/L Alanine Aminotransferase (ALT/SGPT) 97 U/L Alkaline Phosphatase 156 U/L Total Creatine Kinase 271 U/L Creatine Kinase MB 11.5 ng/ml Creatine Kinase MB Ratio 4.2 Troponin I < 0.015 ng/ml Pro-B-Type Natriuretic Peptide 7141 pg/ml Total Protein 7.0 gm/dl Albumin 3.0 gm/dl Lipase 134 U/L Thyroid Stimulating Hormone (TSH) 3.210 uIu/ml Urine Color YELLOW Urine Appearance CLEAR Urine pH 5.0 Urine Specific [place] 1.002 Urine Protein NEG Urine Glucose (UA) NEG Urine Ketones NEG Urine Occult Blood 1+ Urine Nitrite NEG Urine Bilirubin NEG Urine Urobilinogen NEG Urine Leukocyte Esterase NEG Urine WBC (Auto) 0 /hpf Urine RBC (Auto) 0-4 /hpf Urine Hyaline Casts (Auto) 1-5 /lpf Urine Epithelial Cells (Auto) 0-5 /lpf Urine Bacteria (Auto) NEG Prothrombin Time 40.8 SECONDS Prothromb Time International Ratio 3.6 Activated Partial Thromboplast Time 41.4 SECONDS Partial Thromboplastin Ratio 1.6 Test 04/20/16 00:00 04/20/16 00:25 04/20/16 04:40 04/20/16 06:07 Stool Occult Blood NEGATIVE Troponin I < 0.015 ng/ml < 0.015 ng/ml Prothrombin Time 18.2 SECONDS Prothromb Time International Ratio 1.7 White Blood Count 15.06 K/uL Red Blood Count 4.53 M/uL Hemoglobin 14.8 g/dL Hematocrit 42.1 % Mean Corpuscular Volume 92.9 fL Mean Corpuscular Hemoglobin 32.7 pg Mean Corpuscular Hemoglobin Concent 35.2 g/dl Platelet Count 253 K/uL Mean Platelet Volume 9.9 fL Neutrophils (%) (Auto) 73.2 % Lymphocytes (%) (Auto) 12.0 % Monocytes (%) (Auto) 11.2 % Eosinophils (%) (Auto) 0.1 % Basophils (%) (Auto) 0.3 % Neutrophils # (Auto) 11.04 K/uL Lymphocytes # (Auto) 1.80 K/uL Monocytes # (Auto) 1.68 K/uL Eosinophils # (Auto) 0.02 K/uL Basophils # (Auto) 0.04 K/uL RDW Standard Deviation 46.6 fL RDW Coefficient of Variation 13.7 % Immature Granulocyte % (Auto) 3.2 % Immature Granulocyte # (Auto) 0.48 K/uL Sodium Level 138 mmol/L Potassium Level 3.6 mmol/L Chloride Level 99 mmol/L Carbon Dioxide Level 29 mmol/L Anion Gap 10.0 mmol/L Blood Urea Nitrogen 20 mg/dl Creatinine 1.20 mg/dl Est Creatinine Clear Calc Drug Dose 44.2 ml/min Estimated GFR () 50.5 Estimated GFR (Non- 43.6 BUN/Creatinine Ratio 16.8 Random Glucose 66 mg/dl Calcium Level 8.6 mg/dl Magnesium Level 2.2 mg/dl Total Bilirubin 1.6 mg/dl Aspartate Amino Transf (AST/SGOT) 47 U/L Alanine Aminotransferase (ALT/SGPT) 103 U/L Alkaline Phosphatase 154 U/L Total Protein 7.0 gm/dl Albumin 3.1 gm/dl Globulin 3.9 gm/dl Albumin/Globulin Ratio 0.8 Triglycerides Level 172 mg/dl Cholesterol Level 148 mg/dl HDL Cholesterol 46 mg/dl LDL Cholesterol, Calculated 68 mg/dl VLDL Cholesterol, Calculated 34 mg/dl Cholesterol/HDL Ratio 3.2 Test 04/20/16 12:35 Assessment and Plan 1. Pulmonary edema - known diastolic CHF - acute on chronic diastolic CHF - CTA neg PE - will diurese with lasix 40 mg IV bid - monitor i/o and daily weights - cardio input appreciated 2. LE swelling - supratherapeutic INR, dopplers with DVT - CTA neg PE - will resume heparin gtt to bridge to coumadin once cleared by GI 3. Supratherapeutic INR - 2/2 abx therapy - INR <2 - will resume anticoagulation once cleared from GI standpoint 4. BRBPR -s/p scoping - awaiting results 5. Recent pneumonia - clear on CT - will hold off further abx therapy - taper off steroids 6. Pulmonary nodule - will need a repeat CT scan in a few months as recommended above to monitor 7. CKD II/IIIa - will cont to monitor but is close to baseline of 0.9 - will cont diuresis for now as she needs fluids off at this point
--- NOTE | 2016-04-20 13:20 | Clinical Documentation Query ---
QUERY 1 OF [address] DELGADO, In your clinical opinion is this patient being managed for: (X ) Acute on chronic diastolic (congestive) heart failure ( ) Other explanation of clinical findings (Please Explain) ( ) Unable to determine (Please Define) ( ) Need to Discuss ( ) Not Agree The medical record reflects the following clinical findings, treatment, and risk factors. Clinical Indicators: 75 yo female presenting with dyspnea on exertion and LE edema. BNP 7141. Lungs noted to have bibasilar crackles. 88% on RA, 95% on 4L, respiratory rate 32. Cardiology consult indicates pt has a hx of diastolic CHF. Treatment: tele, IV lasix bid, I/O, daily wts, cardiology consult, O2 support Risk Factors: HTN, A fib QUERY 2 OF 2 In your clinical opinion is this patient being managed for: ( ) Chronic kidney disease, stage 3 ( ) Other explanation of clinical findings (Please Explain) (X ) Unable to determine (Please Define) ( ) Need to Discuss ( ) Not Agree The medical record reflects the following clinical findings, treatment, and risk factors. Clinical Indicators: Review of GFR range showed 43-57.8 Treatment: monitor PRP's Risk Factors: age, HTN, hx diastolic CHF, A fib Please clarify and document your clinical opinion in the progress notes and discharge summary. Terms such as "probable", "suspected", "likely", "questionable", "possible", or "still to be ruled out" are acceptable. IF IN AGREEMENT, YOU MUST DOCUMENT ABOVE DIAGNOSTIC STATEMENT IN DAILY PROGRESS NOTES AND DISCHARGE SUMMARY. This document is not part of the patient's record. Thank you, Milagros Saavedra RN, CDS [phone]
--- NOTE | 2016-04-20 14:36 | ECHOCARDIOGRAM REPORT ---
*NOTICE TO RECEIVING DEMOCRAT AGENCY This information is strictly Confidential and protected under [place] law. [place] law prohibits you from making any further disclosure of this information unless further disclosure is expressly permitted by the written consent of the person to whom it pertains or is authorized by law. A general authorization for the release of medical or other information is not sufficient for this purpose. Hospital accepts no responsibility if the information is made available to any other person, INCLUDING THE PATIENT. Interpretation Summary * Name: ELENA JONES Study Date: 04/20/2016 08:39 AM BP: 150/80 mmHg * Patient Location: [facility]\S\N282\S\2 HR: 70 * : 1940 (M/d/yyyy) Gender: Female Height: 66 in * Age: 75 yrs Ethnicity: [place] Weight: 208 lb * Ordering Physician: Rafaela Erazo * Performed By: Elvira Fall RDCS * * Reason For Study: Congestive heart failure * BSA: 2.0 m2 * -- Conclusions -- * The left ventricle is normal in size. * There is borderline concentric left ventricular hypertrophy. * Ejection Fraction = 55-60%. * Left ventricular systolic function is normal. * The left ventricular wall motion is normal. * There is trace mitral regurgitation. * The left atrium is mildly dilated. * There is mild tricuspid regurgitation. * Right ventricular systolic pressure is normal. * There is a pacemaker lead in the right ventricle. Procedure Details * A complete two-dimensional transthoracic echocardiogram was performed (2D, M-mode, Doppler and color flow Doppler). Left Ventricle * The left ventricle is normal in size. * There is borderline concentric left ventricular hypertrophy. * Ejection Fraction = 55-60%. * Left ventricular systolic function is normal. * The left ventricular wall motion is normal. Right Ventricle * The right ventricle is mildly dilated. * There is a pacemaker lead in the right ventricle. * There is mild right ventricular hypertrophy. * The right ventricular systolic function is normal. Atria * The left atrium is mildly dilated. * The right atrium is mildly dilated. * The interatrial septum is intact with no evidence for an atrial septal defect. Mitral Valve * There is mild to moderate mitral annular calcification. * There is trace mitral regurgitation. Tricuspid Valve * The tricuspid valve is normal in structure and function. * There is mild tricuspid regurgitation. * Right ventricular systolic pressure is normal. Aortic Valve * Aortic valve sclerosis mild, without significant aortic valvular stenosis. * The aortic valve is trileaflet. * There is no significant aortic regurgitation. Pulmonic Valve * The pulmonary valve is inadequately visualized, but the Doppler data is adequate for interpretation. * There is no significant pulmonary regurgitation. Great Vessels * The aortic root is normal size. * No obvious dissection could be visualized. * The pulmonary artery is not well visualized, but is probably normal size. Pericardium/Pleural * There is no pericardial effusion. Right Ventricle * The right ventricular wall motion is normal. Great Vessels * Normal inferior vena cava diameter and respiratory variation suggests normal central venous pressure. MMode 2D Measurements and Calculations IVSd 1.1 cm LVIDd 3.8 cm LVIDs 2.7 cm LVPWd 1.1 cm IVS/LVPW 0.98 FS 30.1 % EDV(Teich) 62.9 ml ESV(Teich) 26.3 ml EF(Teich) 58.1 % EDV(cubed) 56.0 ml ESV(cubed) 19.1 ml EF(cubed) 65.9 % LV mass(C)d 135.5 grams LV mass(C)dI 66.6 grams/m\S\2 SV(Teich) 36.6 ml SI(Teich) 18.0 ml/m\S\2 SV(cubed) 36.9 ml SI(cubed) 18.1 ml/m\S\2 Ao root diam 3.1 cm Ao root area 7.5 cm\S\2 ACS 1.9 cm LA dimension 3.1 cm asc Aorta Diam 2.9 cm LA/Ao 1.0 LVOT diam 2.0 cm LVOT area 3.2 cm\S\2 LVAd ap4 19.8 cm\S\2 LVLd ap4 6.5 cm EDV(MOD-sp4) 49.1 ml EDV(sp4-el) 51.3 ml LVAs ap4 11.3 cm\S\2 LVLs ap4 5.7 cm ESV(MOD-sp4) 18.5 ml ESV(sp4-el) 18.9 ml EF(MOD-sp4) 62.4 % EF(sp4-el) 63.1 % LVAd ap2 20.4 cm\S\2 LVLd ap2 6.7 cm EDV(MOD-sp2) 50.7 ml EDV(sp2-el) 53.2 ml LVAs ap2 12.3 cm\S\2 LVLs ap2 5.7 cm ESV(MOD-sp2) 22.0 ml ESV(sp2-el) 22.4 ml EF(MOD-sp2) 56.6 % EF(sp2-el) 58.0 % LVLd %diff 2.8 % EDV(MOD-bp) 51.3 ml LVLs %diff -0.24 % ESV(MOD-bp) 20.3 ml EF(MOD-bp) 60.4 % SV(MOD-sp4) 30.7 ml SI(MOD-sp4) 15.1 ml/m\S\2 SV(MOD-sp2) 28.7 ml SI(MOD-sp2) 14.1 ml/m\S\2 SV(MOD-bp) 31.0 ml SI(MOD-bp) 15.2 ml/m\S\2 SV(sp4-el) 32.4 ml SI(sp4-el) 15.9 ml/m\S\2 SV(sp2-el) 30.8 ml SI(sp2-el) 15.2 ml/m\S\2 Doppler Measurements and Calculations Ao V2 max 111.3 cm/sec Ao max PG 5.0 mmHg Ao max PG (full) 1.9 mmHg YOSI(V,A) 2.5 cm\S\2 YOSI(V,D) 2.5 cm\S\2 LV V1 max PG 3.0 mmHg LV V1 max 86.8 cm/sec PA V2 max 79.4 cm/sec PA max PG 2.5 mmHg PA acc slope 794.1 cm/sec\S\2 PA acc time 0.10 sec TR max chu 209.7 cm/sec PA pr(Accel) 33.2 mmHg
[2016-04-20 15:27] VITALS: BP 102/69; PULSE 79; TEMP 36.3; O2SAT 92
--- NOTE | 2016-04-20 18:40 | GASTROINTESTINAL CONSULTATION ---
DATE OF CONSULTATION: 04/20/2016 REQUESTING PHYSICIAN: Hospitalist. REASON FOR CONSULTATION: GI bleeding. HISTORY OF PRESENT ILLNESS: The patient just discharged on 04/19 for treatment of her left lower lobe pneumonia. She was admitted with some shortness of breath and had bright red blood per rectum. It was enough that it brought her to the Emergency Room. She has not had any further in the hospital. In fact, during her colonoscopy prep, has had no further bleeding and stool was heme negative. Hemoglobin 14.1 on admission went to 14.8. Her breathing is improved with treatment of possible CHF. She states she has had no colonoscopy in the past, but has had just an EGD in the past, no results. PAST MEDICAL HISTORY: ALLERGIES: None. MEDICATIONS: On admission, Lipitor, vitamin D, Lasix, levofloxacin, levothyroxine, Toprol, potassium, prednisone, Requip, Coumadin. Her INR was 3.6 on admission and then corrected down to 1.7. PROBLEMS AND SURGERIES: AFib, hypertension. She has had Graves disease status post thyroidectomy, restless legs syndrome, cholelithiasis, vitamin D, hyperlipidemia. FAMILY HISTORY: Noncontributory. SOCIAL HISTORY: Tobacco. REVIEW OF SYSTEMS: EYES, EARS, NOSE, MOUTH, AND THROAT: Negative. CARDIOVASCULAR: Negative. RESPIRATORY: Some shortness of breath. GENITOURINARY, MUSCULOSKELETAL, INTEGUMENTARY, NEUROLOGIC, PSYCHIATRIC, ENDOCRINE AND HEMATOLOGIC: Negative except as noted above. PHYSICAL EXAMINATION: GENERAL: Female, appears stated age, in no acute distress. VITAL SIGNS: Most recent vital signs in this chart, temp 36, pulse 68, respirations 18, BP 142/85, O2 sat 96% on 3 liters. EYES: Conjunctivae and lids normal. EARS, NOSE, MOUTH AND THROAT: Negative. NECK: Without obvious mass or thyroid enlargement. RESPIRATORY: Normal effort, clear to anterior auscultation. CARDIOVASCULAR: Without obvious murmur. EXTREMITIES: Trace edema. ABDOMEN: Positive bowel sounds, soft, nontender, no obvious organomegaly or masses are appreciated. LYMPH: No obvious neck or groin nodes. MUSCULOSKELETAL: Digits and nails normal. SKIN: Without obvious rash or induration. NEUROLOGIC: Cranial nerves intact. Sensation intact. PSYCHIATRIC: Recent and remote memory good. Insight and judgment good. DATA: Venous Doppler is negative. CTA of the chest for pulmonary embolus was negative, trace pleural effusions, cardiomegaly, mild emphysema, 3 mm lung nodule. Chest x-ray: Pulmonary vascular congestion. BNP was elevated at 7141, lipase was normal at 134. LFTs were elevated on admission and slightly worse today, AST 41, ALT 97, alkaline phosphatase 156, total bilirubin 1.3. IMPRESSION AND PLAN: 1. Bright red blood per rectum. Stool was heme negative subsequently, so probably a lower bleed but in order to cover all bases, especially since she is going to need to be on Coumadin, we are going to recommend upper endoscopy and colonoscopy. I explained the procedure and risk to the patient, which include but not limited to medication reactions, bleeding, perforation, aspiration and missed lesions. 2. Elevated LFTs, perhaps from liver congestion with CHF. Do not see any previous in the EMR. If not resolved in hospital then continue outpatient workup. 3. Coumadin coagulopathy, corrected to 1.7 per the procedure. 4. Elevated white count on admission. No abdominal pain to suggest a GI process, defer to the hospitalist. 5. Lung nodule. Defer to the hospitalist. MTDD
[2016-04-20 19:29] VITALS: BP 127/89; PULSE 79; TEMP 36.7; O2SAT 96
[2016-04-20] MEDS: PANTOprazole SOD 40 MG TAB PO SCH (20:48)
[2016-04-20] MEDS: ROPINIROLE HCL 1 MG TAB PO SCH (20:48)
[2016-04-21] VITALS (11 sets, daily range): BP systolic 106–133; BP diastolic 70–80; PULSE 66–77; TEMP 36.3–36.6; O2SAT 91–97
--- NOTE | 2016-04-21 00:45 | GI REPORT ---
Procedure Date: 04/20/2016 10:11 AM Procedure: Upper GI endoscopy Indications: Gastrointestinal bleeding of unknown origin, Coumadin use Medicines: Monitored Anesthesia Care Complications: No immediate complications. Estimated Blood Loss: Estimated blood loss was minimal. Procedure: Pre-Anesthesia Assessment: - The risks and benefits of the procedure and the sedation options and risks were discussed with the patient. All questions were answered and informed consent was obtained. - Patient identification and proposed procedure were verified prior to the procedure by the physician, the nurse and the marketing analytics lead. The procedure was verified in the procedure room. After obtaining informed consent, the endoscope was passed under direct vision. Throughout the procedure, the patient's blood pressure, pulse, and oxygen saturations were monitored continuously. The On-site loaner was introduced through the mouth, and advanced to the second part of duodenum. The upper GI endoscopy was accomplished without difficulty. The patient tolerated the procedure well. Procedure and risks explained to patient which include but not limited to medication reaction, bleeding, perforation, aspiration , and missed lesions. Judicious gas insufflation was used and gas removal done on the way out. The lumen was always visualized when advancing the scope. Prep was good. Washes and suctioning used as needed to get good visualization of the mucosa. Retroflexion to look at the fundus and cardia of the stomach and GE junction was done. Findings: LA Grade B (one or more mucosal breaks greater than 5 mm, not extending between the tops of two mucosal folds) erosive non bleeding esophagitis was found. Biopsies were taken with a cold forceps for histology. Estimated blood loss was minimal. Multiple small sessile polyps were found in the gastric body. Likely fundic gland so not biopsied nor removed. A 2 cm hiatus hernia was present. The examined duodenum was normal. No fresh nor old blood noted throughout exam except post biopsy as above. Impression: - LA Grade B reflux esophagitis. Biopsied. - Multiple gastric polyps. - 2 cm hiatus hernia. - Normal examined duodenum. Recommendation: - [facility]. - PPI for erosive esophagitis Sherwin Aponte M.D. Sherwin Aponte MD 04/20/2016 11:15:09 AM This report has been signed electronically. Note Initiated On: 04/20/2016 10:11 AM I attest to the content of the Intraoperative Record and orders documented therein, exceptions below
--- NOTE | 2016-04-21 00:45 | GI REPORT ---
Procedure Date: 04/20/2016 10:44 AM Procedure: Colonoscopy Indications: Gastrointestinal bleeding Medicines: Monitored Anesthesia Care Complications: No immediate complications. Estimated Blood Loss: Estimated blood loss was minimal. Procedure: Pre-Anesthesia Assessment: - The risks and benefits of the procedure and the sedation options and risks were discussed with the patient. All questions were answered and informed consent was obtained. - Patient identification and proposed procedure were verified prior to the procedure by the physician, the nurse and the credit control assistant. The procedure was verified in the procedure room. After I obtained informed consent, the scope was passed under direct vision. Throughout the procedure, the patient's blood pressure, pulse, and oxygen saturations were monitored continuously. The Scope was introduced through the anus and advanced to the terminal ileum, with identification of the appendiceal orifice and IC valve. The colonoscopy was performed without difficulty. The patient tolerated the procedure well. Procedure and risks explained to patient which include but not limited to med reaction, bleeding, perforation, aspiration and missed lesions. Judicious gas insufflation and gas removal done on the way out. The lumen always well visualized when advancing the scope. Washes and suctioning used as needed for good visuzlization of mucosa. Prep was good. Retroflexion in the rectum to look at the distal rectum and anal canal done. The quality of the bowel preparation was good. Findings: The terminal ileum appeared normal. Multiple small and large-mouthed diverticula were found in the left colon. Internal hemorrhoids were found during retroflexion. The hemorrhoids were large. A 3 mm polyp was found in the cecum. The polyp was sessile. The polyp was removed with a lift and cut technique using a cold snare. Resection and retrieval were complete. Estimated blood loss was minimal. A 4 mm polyp was found at the hepatic flexure. The polyp was sessile. The polyp was removed with a lift and cut technique using a cold snare. Resection and retrieval were complete. Estimated blood loss was minimal. A 4 mm polyp was found at 20 cm proximal to the anus. The polyp was pedunculated. The polyp was removed with a lift and cut technique using a hot snare. Resection and retrieval were complete. Estimated blood loss: none. The exam was otherwise without abnormality on direct and retroflexion views. No fresh nor old blood noted except post polypectomy as above. Impression: - The examined portion of the ileum was normal. - Diverticulosis in the left colon. - Internal hemorrhoids. - One 3 mm polyp in the cecum, removed using lift and cut and a cold snare. Resected and retrieved. - One 4 mm polyp at the hepatic flexure, removed using lift and cut and a cold snare. Resected and retrieved. - One 4 mm polyp at 20 cm proximal to the anus, removed using lift and cut and a hot snare. Resected and retrieved. - The examination was otherwise normal on direct and retroflexion views. Recommendation: - Return patient to [facility] care. - Wait to start coumadin tomorrow. Sherwin Aponte M.D. Sherwin Aponte MD 04/20/2016 11:20:44 AM This report has been signed electronically. Note Initiated On: 04/20/2016 10:44 AM I attest to the content of the Intraoperative Record and orders documented therein, exceptions below
[2016-04-21] MEDS: LEVOTHYROXINE 75 MCG TAB PO SCH (06:08)
[2016-04-21 06:09] LABS: BASO % 0.2 %; BASO ABS # 0.02 K/uL (0-0.2); COMPLETE YES; EOS % 0.9 %; HEMATOCRIT 41.1 % (37-47); IG% 2.7 %; LYMPH % 17.9 %; LYMPH ABS # 2.09 K/uL (1.2-3.4); MEAN CELL VOLUME 93.2 fL (80-100); MEAN CORPUSCULAR HEMOGLOBIN 32.9 pg (25-34); MEAN CORPUSCULAR HGB CONC 35.3 g/dl (32-36); MONO % 10.1 %; NEUT % 68.2 %; PLATELET COUNT 253 K/uL (130-400); RED BLOOD COUNT 4.41 M/uL (4.2-5.4); WHITE BLOOD COUNT 11.65 K/uL (4.8-10.8)
[2016-04-21] MEDS: FUROSEMIDE INJ 40 MG in SYRINGE 0 ML IV SCH (06:16)
[2016-04-21 06:37] LABS: CALCIUM 8.1 mg/dl (8.5-10.1); CREATININE 1.3 mg/dl (0.60-1.20); MAGNESIUM 2.2 mg/dl (1.8-2.4); POTASSIUM 3.2 mmol/L (3.5-5.1)
[2016-04-21 06:40] LABS: ALB/GLOB RATIO 0.7 (0.9-2)
[2016-04-21] MEDS: POTASSIUM CHLORIDE 20 MEQ TABCR PO SCH (08:19)
[2016-04-21] MEDS: ATORVASTATIN 10 MG TAB PO SCH (08:20)
[2016-04-21] MEDS: PANTOprazole SOD 40 MG TAB PO SCH ×3 (08:20→20:57)
[2016-04-21] MEDS: METOPROLOL SUCC 50MG EXT REL TAB PO SCH (08:20)
[2016-04-21] MEDS ORDERED: POTASSIUM CHLORIDE 10 MEQ TABCR PO ONE (08:30)
--- NOTE | 2016-04-21 12:17 | Progress Note ---
Subjective Date of Service: Apr 21, 2016. Subjective Pt evaluation today including: conversation w/ patient, physical exam, review of inpatient medication list Feels well. Breathing is much improved. No chest pain, No sob. No new complaints. No further BRBPR. Colonoscopy and EGD results noted. Problem List Medical Problems: (1) Bilateral pneumonia Status: Acute (2) CHF (congestive heart failure) Status: Acute (3) Hypoxia Status: Acute (4) Supratherapeutic INR Status: Acute Review of Systems All Other Systems: Reviewed and Negative Medications Atorvastatin Calcium (Lipitor Tab) 10 mg DAILY PO Last administered on 08:20; Admin Dose 10 MG; Start 04/20/16 at 09:00; Stop 05/20/16 at 08:59 Enoxaparin Sodium (Lovenox Inj) 80 mg Q12 SQ Last administered on 04/21/16 14:12 ; Admin Dose 80 MG; Start 04/21/16 at 12:00; Stop 05/21/16 at 11:59 Furosemide (Lasix Tab) 40 mg DAILY@0700 PO; Start 04/22/16 at 07:00; Stop at 06:59 Ioversol (Optiray 320) 100 ml UD PRN IV; Start 04/19/16 at 14:30; Stop 04/23/16 at 14:29 Levothyroxine Sodium (Synthroid Tab) 75 mcg DAILYBB PO Last administered on 06:08; Admin Dose 75 MCG; Start 04/20/16 at 06:30; Stop 05/20/16 at 06:59 Metoprolol Succinate (Toprol Xl Tab) 50 mg DAILY PO Last administered on 08:20; Admin Dose 50 MG; Start 04/20/16 at 09:00; Stop 05/20/16 at 08:59 Pantoprazole Sodium (Protonix Tab) 40 mg BID PO Last administered on 04/21/16 08 :23; Admin Dose 40 MG; Start 04/20/16 at 21:00; Stop 05/20/16 at 20:59 Potassium Chloride (Klor-Con Tab) 20 meq DAILY PO Last administered on 04/21/16 08:19; Admin Dose 20 MEQ; Start 04/20/16 at 09:00; Stop 05/20/16 at 08:59 Prednisone (PredniSONE TAB) 10 mg DAILY PO; Start 04/22/16 at 09:00; Stop at 12:00 Ropinirole HCl (Requip Tab) 1 mg HS PO Last administered on 04/20/16t 20:48; Admin Dose 1 MG; Start 04/20/16 at 21:00; Stop 05/20/16 at 20:59 Warfarin Sodium (Coumadin Tab) 3 mg DAILY@16 PO; Start 04/21/16 at 16:00; Stop at 15:59 Objective Vital Signs Date Time Temp Pulse Resp B/P Pulse Ox O2 Delivery O2 Flow Rate FiO2 04/21/16 11:36 36.4 71 16 127/78 92 04/21/16 10:07 96 Nasal Cannula 1.0 04/21/16 07:46 Nasal Cannula 1.0 04/21/16 07:37 36.6 77 16 121/79 97 Nasal Cannula 04/21/16 04:00 Nasal Cannula 2.0 04/21/16 04:00 36.5 66 20 126/75 97 2.0 04/21/16 00:18 36.5 76 18 133/76 96 2.0 04/21/16 00:00 Nasal Cannula 2.0 04/20/16 20:00 Nasal Cannula 2.0 04/20/16 19:29 36.7 79 22 127/89 96 Nasal Cannula 2.0 04/20/16 16:05 Nasal Cannula 2.0 04/20/16 15:27 36.3 79 22 102/69 92 Room Air 2.0 Physical Exam Comments: nad, laying flat in bed eomi, proptosis noted, anicteric s1 s2 rrr ctab no w/r/r abd soft/nt nd +BS LE edema trace at best cn 2-12 grossly in tact Laboratory Results Last 24 Hours Test 04/20/16 12:35 04/21/16 05:26 Troponin I < 0.015 ng/ml White Blood Count 11.65 K/uL Red Blood Count 4.41 M/uL Hemoglobin 14.5 g/dL Hematocrit 41.1 % Mean Corpuscular Volume 93.2 fL Mean Corpuscular Hemoglobin 32.9 pg Mean Corpuscular Hemoglobin Concent 35.3 g/dl Platelet Count 253 K/uL Mean Platelet Volume 10.0 fL Neutrophils (%) (Auto) 68.2 % Lymphocytes (%) (Auto) 17.9 % Monocytes (%) (Auto) 10.1 % Eosinophils (%) (Auto) 0.9 % Basophils (%) (Auto) 0.2 % Neutrophils # (Auto) 7.94 K/uL Lymphocytes # (Auto) 2.09 K/uL Monocytes # (Auto) 1.18 K/uL Eosinophils # (Auto) 0.11 K/uL Basophils # (Auto) 0.02 K/uL RDW Standard Deviation 46.4 fL RDW Coefficient of Variation 13.5 % Immature Granulocyte % (Auto) 2.7 % Immature Granulocyte # (Auto) 0.31 K/uL Sodium Level 139 mmol/L Potassium Level 3.2 mmol/L Chloride Level 98 mmol/L Carbon Dioxide Level 32 mmol/L Anion Gap 9.0 mmol/L Blood Urea Nitrogen 25 mg/dl Creatinine 1.30 mg/dl Est Creatinine Clear Calc Drug Dose 40.3 ml/min Estimated GFR () 45.8 Estimated GFR (Non- 39.5 BUN/Creatinine Ratio 19.0 Random Glucose 87 mg/dl Calcium Level 8.1 mg/dl Magnesium Level 2.2 mg/dl Total Bilirubin 1.4 mg/dl Aspartate Amino Transf (AST/SGOT) 48 U/L Alanine Aminotransferase (ALT/SGPT) 112 U/L Alkaline Phosphatase 131 U/L Total Protein 6.6 gm/dl Albumin 2.8 gm/dl Globulin 3.8 gm/dl Albumin/Globulin Ratio 0.7 Assessment and Plan 1. Pulmonary edema - known diastolic CHF - acute on chronic diastolic CHF - CTA neg PE - will diurese with lasix 40 mg IV bid - monitor i/o and daily weights - cardio input appreciated 2. LE swelling - supratherapeutic INR, dopplers with DVT - CTA neg PE - will start lovenox to bridge to coumadin today - INR in AM 3. Supratherapeutic INR - 2/2 abx therapy - INR <2 - will resume anticoagulation 4. BRBPR - results noted - hb stable 5. Recent pneumonia - clear on CT - will hold off further abx therapy - taper off steroids 6. Pulmonary nodule - will need a repeat CT scan in a few months as recommended above to monitor 7. 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
--- NOTE | 2016-04-21 12:45 | CARDIOLOGY PROGRESS NOTE ---
DATE: 04/21/2016 DATE: 04/21/2016. SUBJECTIVE: Mrs. Zhang is resting comfortably in bed without complaints of chest pain, dyspnea. Her upper and lower endoscopies were reviewed. Bleeding source appears to be hemorrhoidal. OBJECTIVE: VITAL SIGNS: Blood pressure 127/78 with a regular pulse of 70. Respiratory rate is 16. The patient is afebrile at 36.4 degrees Celsius. Saturations 92% on 1 liter nasal cannula. NECK: Supple with full carotid upstrokes. There are no obvious bruits. Jugular venous pressure is flat at 90 degrees. CARDIOVASCULAR EXAMINATION: Reveals an irregular rhythm with distant heart sounds. No obvious murmurs. LUNGS: Clear without rales, rhonchi, or wheezes. ABDOMEN: Soft and nontender without bruits. EXTREMITIES: Reveal intact radial artery pulses bilaterally. Trace pretibial edema is noted. LABORATORY DATA: CBC notes hemoglobin 14.5, hematocrit 41.1, white count 11.6, platelet count 253,000. Electrolytes note a sodium of 139, potassium 3.2, chloride 98, bicarb 32, BUN 25, creatinine 1.3, glucose 87. Four troponin I levels are undetectable at less than 0.015. respiratory therapy instructor notes atrial fibrillation with appropriate ventricular pacing. IMPRESSION AND PLAN: 1. Rectal bleeding -- likely hemorrhoidal. 2. Hypertension -- controlled. 3. Tachycardia/bradycardia syndrome, status post VVI pacemaker in 2004, generator changed January 2013. 4. Permanent atrial fibrillation -- Coumadin currently on hold due to rectal bleeding. 5. History of Graves' disease -- with ophthalmopathy. 6. Iatrogenic hypothyroidism, status post thyroidectomy. 7. History of diastolic congestive heart failure -- compensated.
[2016-04-21] MEDS: ENOXAPARIN 80 MG/0.8 ML SYR SQ SCH ×2 (14:12→22:28)
[2016-04-21] MEDS: WARFARIN SOD 3 MG TAB PO SCH (15:38)
--- NOTE | 2016-04-21 17:25 | Gastroenterology Progress Note ---
Progress Note Date of Service: Apr 21, 2016 Subjective Pt evaluation today including: conversation w/ patient, physical exam, chart review, lab review, review of studies, review of inpatient medication list CC f/u GI bleeding HPI. NO further rectal bleeding. NO abd pain. No stools yet since EGD/ CoLONOscopy. Tolerating solid diet. Review of Systems Respiratory: No shortness of breath Cardiac: No chest pain Medications Current Inpatient Medications Medications (Trade) Dose Ordered Sig/Angeles Route Start Time Stop Time Status Last Admin Dose Admin Ioversol (Optiray 320) 100 ml UD PRN IV 04/19/16 14:30 04/23/16 14:29 Atorvastatin Calcium (Lipitor Tab) 10 mg DAILY PO 04/20/16 09:00 05/20/16 08:59 04/21/16 08:20 10 MG Levothyroxine Sodium (Synthroid Tab) 75 mcg DAILYBB PO 04/20/16 06:30 05/20/16 06:59 04/21/16 06:08 75 MCG Metoprolol Succinate (Toprol Xl Tab) 50 mg DAILY PO 04/20/16 09:00 05/20/16 08:59 04/21/16 08:20 50 MG Potassium Chloride (Klor-Con Tab) 20 meq DAILY PO 04/20/16 09:00 05/20/16 08:59 04/21/16 08:19 20 MEQ Ropinirole HCl (Requip Tab) 1 mg HS PO 04/20/16 21:00 05/20/16 20:59 04/20/16 20:48 1 MG Pantoprazole Sodium (Protonix Tab) 40 mg BID PO 04/20/16 21:00 05/20/16 20:59 04/21/16 08:23 40 MG Furosemide (Lasix Tab) 40 mg DAILY@0700 PO 04/22/16 07:00 05/22/16 06:59 Prednisone (PredniSONE TAB) 10 mg DAILY PO 04/22/16 09:00 04/22/16 12:00 Enoxaparin Sodium (Lovenox Inj) 80 mg Q12 SQ 04/21/16 12:00 05/21/16 11:59 04/21/16 14:12 80 MG Warfarin Sodium (Coumadin Tab) 3 mg DAILY@16 PO 04/21/16 16:00 05/21/16 15:59 04/21/16 15:38 3 MG Objective Vital Signs Date Time Temp Pulse Resp B/P Pulse Ox O2 Delivery O2 Flow Rate FiO2 04/21/16 15:52 36.3 72 16 121/80 92 Room Air 04/21/16 12:00 Room Air 04/21/16 11:55 92 Room Air 04/21/16 11:36 36.4 71 16 127/78 92 04/21/16 10:07 96 Nasal Cannula 1.0 04/21/16 07:46 Nasal Cannula 1.0 04/21/16 07:37 36.6 77 16 121/79 97 Nasal Cannula 04/21/16 04:00 Nasal Cannula 2.0 04/21/16 04:00 36.5 66 20 126/75 97 2.0 04/21/16 00:18 36.5 76 18 133/76 96 2.0 04/21/16 00:00 Nasal Cannula 2.0 04/20/16 20:00 Nasal Cannula 2.0 04/20/16 19:29 36.7 79 22 127/89 96 Nasal Cannula 2.0 Physical Exam General Appearance: WD/WN, no apparent distress Respiratory/Chest: normal breath sounds, no respiratory distress Cardiovascular: no murmur Abdomen: normal bowel sounds, non tender, soft, no organomegaly, no pulsatile mass Laboratory Results Last 24 Hours Test 04/21/16 05:26 White Blood Count 11.65 K/uL Red Blood Count 4.41 M/uL Hemoglobin 14.5 g/dL Hematocrit 41.1 % Mean Corpuscular Volume 93.2 fL Mean Corpuscular Hemoglobin 32.9 pg Mean Corpuscular Hemoglobin Concent 35.3 g/dl Platelet Count 253 K/uL Mean Platelet Volume 10.0 fL Neutrophils (%) (Auto) 68.2 % Lymphocytes (%) (Auto) 17.9 % Monocytes (%) (Auto) 10.1 % Eosinophils (%) (Auto) 0.9 % Basophils (%) (Auto) 0.2 % Neutrophils # (Auto) 7.94 K/uL Lymphocytes # (Auto) 2.09 K/uL Monocytes # (Auto) 1.18 K/uL Eosinophils # (Auto) 0.11 K/uL Basophils # (Auto) 0.02 K/uL RDW Standard Deviation 46.4 fL RDW Coefficient of Variation 13.5 % Immature Granulocyte % (Auto) 2.7 % Immature Granulocyte # (Auto) 0.31 K/uL Sodium Level 139 mmol/L Potassium Level 3.2 mmol/L Chloride Level 98 mmol/L Carbon Dioxide Level 32 mmol/L Anion Gap 9.0 mmol/L Blood Urea Nitrogen 25 mg/dl Creatinine 1.30 mg/dl Est Creatinine Clear Calc Drug Dose 40.3 ml/min Estimated GFR () 45.8 Estimated GFR (Non- 39.5 BUN/Creatinine Ratio 19.0 Random Glucose 87 mg/dl Calcium Level 8.1 mg/dl Magnesium Level 2.2 mg/dl Total Bilirubin 1.4 mg/dl Aspartate Amino Transf (AST/SGOT) 48 U/L Alanine Aminotransferase (ALT/SGPT) 112 U/L Alkaline Phosphatase 131 U/L Total Protein 6.6 gm/dl Albumin 2.8 gm/dl Globulin 3.8 gm/dl Albumin/Globulin Ratio 0.7 Assessment and Plan Bright red rectal bleeding--most likely from hemorrhoids, resolved at present, may need hemorrhoidectomy if recurrent erosive esophagitis--recommend PPI indefitely especially since patient does not feel the erosions and is on coumadin elevate LFTs--perhaps from liver congestin from CHF--not improved so check u/s of abdomen and also acute hep panel, Fe sat, ferritin elevated WBC--improved---no abd pain to suggest GI process--defer to hospitalist colon polyps--await pathology lung nodule--defer to hospitalist
[2016-04-21] MEDS: ROPINIROLE HCL 1 MG TAB PO SCH (20:57)
[2016-04-22] VITALS (7 sets, daily range): BP systolic 101–129; BP diastolic 65–79; PULSE 75–86; TEMP 36.3–36.8; O2SAT 92–95
[2016-04-22] MEDS: LEVOTHYROXINE 75 MCG TAB PO SCH (05:43)
--- NOTE | 2016-04-22 06:34 | DIAGNOSTIC IMAGING REPORT ---
ABDOMINAL ULTRASOUND COMPLETE HISTORY: Pain. elevated LFTs. COMPARISON: None. FINDINGS: Pancreas: The pancreas demonstrates a normal echotexture. Liver: Fatty infiltration Gallbladder: Slightly contracted. Several gallstones. Gallbladder wall 2 mm. No pericholecystic fluid. CBD: Moderate distention of the extrahepatic common bile duct at 1.2 cm. Intrahepatic ducts are unremarkable. Kidneys: Moderate cortical scarring and/or atrophic change is no evidence for hydronephrosis. Spleen: Normal in size. Aorta: Normal in caliber. IVC: Patent. IMPRESSION: Several gallstones. Moderate prominence of the extrahepatic common bile duct. Intrahepatic ducts are unremarkable. Fatty infiltration of liver. Electronically signed by: Gustavo Lamas M.D. 04/22/2016 6:33 AM Dictated Date/Time: 04/22/2016 6:30 AM
[2016-04-22] MEDS ORDERED: FUROSEMIDE 40 MG TAB PO SCH ×2 (07:00→14:00)
[2016-04-22 07:14] LABS: BASO % 0.2 %; BASO ABS # 0.03 K/uL (0-0.2); COMPLETE YES; EOS % 2.3 %; HEMATOCRIT 44.9 % (37-47); IG% 1.9 %; LYMPH % 21.9 %; LYMPH ABS # 3.15 K/uL (1.2-3.4); MEAN CORPUSCULAR HEMOGLOBIN 32.1 pg (25-34); MEAN CORPUSCULAR HGB CONC 34.5 g/dl (32-36); MEAN PLATELET VOLUME 9.9 fL (7.4-10.4); MONO % 6.2 %; NEUT % 67.5 %; PLATELET COUNT 287 K/uL (130-400); RED BLOOD COUNT 4.83 M/uL (4.2-5.4); WHITE BLOOD COUNT 14.38 K/uL (4.8-10.8)
[2016-04-22 07:28] LABS: INR 1.1 (0.9-1.1); PROTHROMBIN TIME (PATIENT) 12.3 SECONDS (9.0-12.0)
[2016-04-22 07:44] LABS: BUN/CREATININE RATIO 19.5 (10-20); CALCIUM 8.5 mg/dl (8.5-10.1); CREATININE 1.3 mg/dl (0.60-1.20); MAGNESIUM 2.4 mg/dl (1.8-2.4); POTASSIUM 3.5 mmol/L (3.5-5.1)
[2016-04-22 07:49] LABS: ALB/GLOB RATIO 0.8 (0.9-2); FERRITIN 575.9 ng/ml (8.0-388.0)
[2016-04-22] MEDS: METOPROLOL SUCC 50MG EXT REL TAB PO SCH (08:09)
[2016-04-22] MEDS: PANTOprazole SOD 40 MG TAB PO SCH ×2 (08:09→21:30)
[2016-04-22] MEDS: ATORVASTATIN 10 MG TAB PO SCH (08:10)
[2016-04-22] MEDS: POTASSIUM CHLORIDE 20 MEQ TABCR PO SCH (08:10)
[2016-04-22] MEDS: ENOXAPARIN 80 MG/0.8 ML SYR SQ SCH ×2 (08:11→21:30)
--- NOTE | 2016-04-22 11:27 | CARDIOLOGY PROGRESS NOTE ---
DATE: 04/22/2016 SUBJECTIVE: Mrs. Zhang is resting comfortably in bed without complaints of chest pain, dyspnea, or palpitations. OBJECTIVE: VITAL SIGNS: Blood pressure is 106/66 with an irregular pulse of 76. Respiratory rate is 16. The patient is afebrile at 36.6 degrees Celsius. Saturations 95% on room air. NECK: Supple with full carotid upstrokes. No obvious bruits. Jugular venous pressure is flat at 90 degrees. CARDIOVASCULAR: Reveals an irregularly regular rhythm with distant heart sounds. No obvious murmurs. LUNGS: Clear without rales, rhonchi, or wheezes. ABDOMEN: Soft, nontender without bruits. EXTREMITIES: Reveal intact radial artery pulses bilaterally. Trace pretibial edema is noted. DATA: CBC notes hemoglobin 15.5, hematocrit 44.9, white count 14.3, platelet count 287,000. Electrolytes note a sodium of 139, potassium 3.5, chloride 101, bicarb 28, BUN 25, creatinine 1.3, glucose 284. INR is 1.1. IMPRESSION AND PLAN: 1. Hemorrhoidal bleeding. 2. Hypertension -- controlled. 3. 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 3. Permanent atrial fibrillation -- Coumadin has been restarted. 4. History of Graves disease -- with ophthalmopathy. 5. Iatrogenic hypothyroidism -- status post thyroidectomy. 6. History of diastolic congestive heart failure -- compensated at this time.
--- NOTE | 2016-04-22 11:27 | Progress Note ---
Subjective Date of Service: Apr 22, 2016. Subjective Pt evaluation today including: conversation w/ patient, physical exam, review of inpatient medication list Feeling well. No chest pain, no sob. Good appetite. No further BRBPR. Problem List Medical Problems: (1) Bilateral pneumonia Status: Acute (2) CHF (congestive heart failure) Status: Acute (3) Hypoxia Status: Acute (4) Supratherapeutic INR Status: Acute Review of Systems All Other Systems: Reviewed and Negative Medications Atorvastatin Calcium (Lipitor Tab) 10 mg DAILY PO Last administered on 08:10; Admin Dose 10 MG; Start 04/20/16 at 09:00; Stop 05/20/16 at 08:59 Enoxaparin Sodium (Lovenox Inj) 80 mg Q12 SQ Last administered on 04/22/16 08:11 ; Admin Dose 80 MG; Start 04/21/16 at 12:00; Stop 05/21/16 at 11:59 Furosemide (Lasix Tab) 40 mg DAILY PO; Start 04/23/16 at 09:00; Stop 05/23/16 at 08:59 Ioversol (Optiray 320) 100 ml UD PRN IV; Start 04/19/16 at 14:30; Stop 04/23/16 at 14:29 Levothyroxine Sodium (Synthroid Tab) 75 mcg DAILYBB PO Last administered on 05:43; Admin Dose 75 MCG; Start 04/20/16 at 06:30; Stop 05/20/16 at 06:59 Metoprolol Succinate (Toprol Xl Tab) 50 mg DAILY PO Last administered on 08:09; Admin Dose 50 MG; Start 04/20/16 at 09:00; Stop 05/20/16 at 08:59 Pantoprazole Sodium (Protonix Tab) 40 mg BID PO Last administered on 04/22/16 08 :09; Admin Dose 40 MG; Start 04/20/16 at 21:00; Stop 05/20/16 at 20:59 Potassium Chloride (Klor-Con Tab) 20 meq DAILY PO Last administered on 04/22/16 08:10; Admin Dose 20 MEQ; Start 04/20/16 at 09:00; Stop 05/20/16 at 08:59 Prednisone (PredniSONE TAB) 10 mg DAILY PO Last administered on 04/22/16 08:09; Admin Dose 10 MG; Start 04/22/16 at 09:00; Stop 04/22/16 at 12:00 Ropinirole HCl (Requip Tab) 1 mg HS PO Last administered on 04/21/16 20:57; Admin Dose 1 MG; Start 04/20/16 at 21:00; Stop 05/20/16 at 20:59 Warfarin Sodium (Coumadin Tab) 3 mg DAILY@16 PO Last administered on 04/21/16 15 :38; Admin Dose 3 MG; Start 04/21/16 at 16:00; Stop 05/21/16 at 15:59 Objective Vital Signs Date Time Temp Pulse Resp B/P Pulse Ox O2 Delivery O2 Flow Rate FiO2 04/22/16 08:00 36.6 76 16 106/66 95 Room Air 04/22/16 08:00 Room Air 04/22/16 04:14 36.8 75 20 121/75 94 Room Air 04/22/16 04:00 Room Air 04/22/16 00:00 Room Air 04/21/16 23:40 36.6 71 20 106/70 95 Room Air 04/21/16 20:00 91 Room Air 04/21/16 19:42 36.4 70 20 126/79 93 Room Air 04/21/16 16:00 91 Room Air 04/21/16 15:52 36.3 72 16 121/80 92 Room Air 04/21/16 12:00 Room Air 04/21/16 11:55 92 Room Air 04/21/16 11:36 36.4 71 16 127/78 92 Physical Exam Comments: nad, aox3 eomi, proptosis noted, perrl s1 s2 rrr, no murmurs appreciated ctab no w/r/r abd soft, nt/nd +BS no LE edema cn 2-12 grossly intact Laboratory Results Last 24 Hours Test 04/22/16 06:55 White Blood Count 14.38 K/uL Red Blood Count 4.83 M/uL Hemoglobin 15.5 g/dL Hematocrit 44.9 % Mean Corpuscular Volume 93.0 fL Mean Corpuscular Hemoglobin 32.1 pg Mean Corpuscular Hemoglobin Concent 34.5 g/dl Platelet Count 287 K/uL Mean Platelet Volume 9.9 fL Neutrophils (%) (Auto) 67.5 % Lymphocytes (%) (Auto) 21.9 % Monocytes (%) (Auto) 6.2 % Eosinophils (%) (Auto) 2.3 % Basophils (%) (Auto) 0.2 % Neutrophils # (Auto) 9.71 K/uL Lymphocytes # (Auto) 3.15 K/uL Monocytes # (Auto) 0.89 K/uL Eosinophils # (Auto) 0.33 K/uL Basophils # (Auto) 0.03 K/uL RDW Standard Deviation 45.3 fL RDW Coefficient of Variation 13.3 % Immature Granulocyte % (Auto) 1.9 % Immature Granulocyte # (Auto) 0.27 K/uL Prothrombin Time 12.3 SECONDS Prothromb Time International Ratio 1.1 Sodium Level 139 mmol/L Potassium Level 3.5 mmol/L Chloride Level 101 mmol/L Carbon Dioxide Level 28 mmol/L Anion Gap 10.0 mmol/L Blood Urea Nitrogen 25 mg/dl Creatinine 1.30 mg/dl Est Creatinine Clear Calc Drug Dose 40.5 ml/min Estimated GFR () 45.8 Estimated GFR (Non- 39.5 BUN/Creatinine Ratio 19.5 Random Glucose 85 mg/dl Calcium Level 8.5 mg/dl Magnesium Level 2.4 mg/dl Total Iron Binding Capacity 284 mcg/dl Ferritin 575.9 ng/ml Total Bilirubin 1.5 mg/dl Aspartate Amino Transf (AST/SGOT) 43 U/L Alanine Aminotransferase (ALT/SGPT) 114 U/L Alkaline Phosphatase 140 U/L Total Protein 7.2 gm/dl Albumin 3.2 gm/dl Globulin 4.0 gm/dl Albumin/Globulin Ratio 0.8 Hepatitis B Surface Antigen NEG Hepatitis C Antibody NEG Assessment and Plan 1. Pulmonary edema - known diastolic CHF - acute on chronic diastolic CHF resolving - CTA neg PE - switch to po lasix 40 mg daily - monitor i/o and daily weights - cardio input appreciated - hold off acei/arb for now with slightly elevated creat 2. Leukocytosis - likely from steroids - improving and patient remains afebrile - cultures negative including BCx from prior admission, no e/o pna on ct 3. Supratherapeutic INR - 2/2 abx therapy, s/p low dose vit K on admission - INR <2 - will resume anticoagulation with lovenox bridging to coumadin 3mg home dose, day 2 today - INR in AM 4. BRBPR - no further episodes - hb stable - colon polyps biopsied, f/u gi outpatient for results 5. Recent pneumonia - clear on CT - last day of steroids tomorrow 6. elevated LFTs - likely from congestion - Abd US per GI, serologies pending 7. IVONNE on CKD II/IIIa - will cont to monitor but is close to baseline of 0.9-1.1 - will cont lasix 40 mg daily and instructed her on weight-based lasix dosing - bmp in AM 8. Pulmonary nodule - patient reports this was present on prior imaging studies and is not new - will need a repeat CT scan in a few months as recommended above to monitor
[2016-04-22] MEDS: WARFARIN SOD 3 MG TAB PO SCH (16:21)
--- NOTE | 2016-04-22 16:45 | Gastroenterology Progress Note ---
Progress Note Date of Service: Apr 22, 2016 Subjective Pt evaluation today including: conversation w/ patient, physical exam, chart review, lab review, review of studies, review of inpatient medication list CC F/u rectal bleeding, elevated LFTs HPI Pt states no stools yet. No abd pain. Is passing gas. U/S of abdomen report fatty liver, gallstones, CBD 1.2 cm Review of Systems Respiratory: No shortness of breath Cardiac: No chest pain Medications Current Inpatient Medications Medications (Trade) Dose Ordered Sig/Angeles Route Start Time Stop Time Status Last Admin Dose Admin Ioversol (Optiray 320) 100 ml UD PRN IV 04/19/16 14:30 04/23/16 14:29 Atorvastatin Calcium (Lipitor Tab) 10 mg DAILY PO 04/20/16 09:00 05/20/16 08:59 04/22/16 08:10 10 MG Levothyroxine Sodium (Synthroid Tab) 75 mcg DAILYBB PO 04/20/16 06:30 05/20/16 06:59 04/22/16 05:43 75 MCG Metoprolol Succinate (Toprol Xl Tab) 50 mg DAILY PO 04/20/16 09:00 05/20/16 08:59 04/22/16 08:09 50 MG Potassium Chloride (Klor-Con Tab) 20 meq DAILY PO 04/20/16 09:00 05/20/16 08:59 04/22/16 08:10 20 MEQ Ropinirole HCl (Requip Tab) 1 mg HS PO 04/20/16 21:00 05/20/16 20:59 04/21/16 20:57 1 MG Pantoprazole Sodium (Protonix Tab) 40 mg BID PO 04/20/16 21:00 05/20/16 20:59 04/22/16 08:09 40 MG Enoxaparin Sodium (Lovenox Inj) 80 mg Q12 SQ 04/21/16 12:00 05/21/16 11:59 04/22/16 08:11 80 MG Warfarin Sodium (Coumadin Tab) 3 mg DAILY@16 PO 04/21/16 16:00 05/21/16 15:59 04/22/16 16:21 3 MG Furosemide (Lasix Tab) 40 mg DAILY PO 04/23/16 09:00 05/23/16 08:59 Objective Vital Signs Date Time Temp Pulse Resp B/P Pulse Ox O2 Delivery O2 Flow Rate FiO2 04/22/16 15:07 36.4 76 16 101/65 93 Room Air 04/22/16 12:00 Room Air 04/22/16 11:38 36.3 86 16 114/72 92 Room Air 04/22/16 08:00 36.6 76 16 106/66 95 Room Air 04/22/16 08:00 Room Air 04/22/16 04:14 36.8 75 20 121/75 94 Room Air 04/22/16 04:00 Room Air 04/22/16 00:00 Room Air 04/21/16 23:40 36.6 71 20 106/70 95 Room Air 04/21/16 20:00 91 Room Air 04/21/16 19:42 36.4 70 20 126/79 93 Room Air Physical Exam General Appearance: WD/WN, no apparent distress Respiratory/Chest: lungs clear, no respiratory distress Cardiovascular: no murmur Abdomen: normal bowel sounds, non tender, soft, no organomegaly, no pulsatile mass Neurologic/Psych: normal mood/affect, oriented x 3 Laboratory Results Last 24 Hours Test 04/22/16 06:55 White Blood Count 14.38 K/uL Red Blood Count 4.83 M/uL Hemoglobin 15.5 g/dL Hematocrit 44.9 % Mean Corpuscular Volume 93.0 fL Mean Corpuscular Hemoglobin 32.1 pg Mean Corpuscular Hemoglobin Concent 34.5 g/dl Platelet Count 287 K/uL Mean Platelet Volume 9.9 fL Neutrophils (%) (Auto) 67.5 % Lymphocytes (%) (Auto) 21.9 % Monocytes (%) (Auto) 6.2 % Eosinophils (%) (Auto) 2.3 % Basophils (%) (Auto) 0.2 % Neutrophils # (Auto) 9.71 K/uL Lymphocytes # (Auto) 3.15 K/uL Monocytes # (Auto) 0.89 K/uL Eosinophils # (Auto) 0.33 K/uL Basophils # (Auto) 0.03 K/uL RDW Standard Deviation 45.3 fL RDW Coefficient of Variation 13.3 % Immature Granulocyte % (Auto) 1.9 % Immature Granulocyte # (Auto) 0.27 K/uL Prothrombin Time 12.3 SECONDS Prothromb Time International Ratio 1.1 Sodium Level 139 mmol/L Potassium Level 3.5 mmol/L Chloride Level 101 mmol/L Carbon Dioxide Level 28 mmol/L Anion Gap 10.0 mmol/L Blood Urea Nitrogen 25 mg/dl Creatinine 1.30 mg/dl Est Creatinine Clear Calc Drug Dose 40.5 ml/min Estimated GFR () 45.8 Estimated GFR (Non- 39.5 BUN/Creatinine Ratio 19.5 Random Glucose 85 mg/dl Calcium Level 8.5 mg/dl Magnesium Level 2.4 mg/dl Total Iron Binding Capacity 284 mcg/dl Ferritin 575.9 ng/ml Total Bilirubin 1.5 mg/dl Aspartate Amino Transf (AST/SGOT) 43 U/L Alanine Aminotransferase (ALT/SGPT) 114 U/L Alkaline Phosphatase 140 U/L Total Protein 7.2 gm/dl Albumin 3.2 gm/dl Globulin 4.0 gm/dl Albumin/Globulin Ratio 0.8 Hepatitis B Surface Antigen NEG Hepatitis C Antibody NEG Assessment and Plan Bright red rectal bleeding--most likely from hemorrhoids, resolved at present, may need hemorrhoidectomy if recurrent erosive esophagitis--recommend PPI indefinitely especially since patient does not feel the erosions and is on coumadin elevated LFTs--about the same---perhaps from liver congestion from CHF in conjuction with fatty liver---ferritin elevated but would expect higher if hemochromatosis, acute hep panel partially complete neg so far, bile duct obstruction would expect more rising bilirubin Gallstones on u/s--no pain to suggest acute cholecystitis dilated bile duct on u/s--no pain, she cannot have MRCP secondary to pacemaker, could follow that as outpt with repeat U/S in 3 months. Did not see any obvious duodenal mass at time of EGD but was not focused on identifying ampulla. elevated WBC--worse---no abd pain to suggest GI process--defer to hospitalist colon polyps--await pathology lung nodule--defer to hospitalist
[2016-04-22] MEDS: ROPINIROLE HCL 1 MG TAB PO SCH (21:30)
[2016-04-23 00:02] VITALS: BP 114/70; PULSE 69; TEMP 36.4; O2SAT 95
[2016-04-23 04:49] VITALS: BP 92/46; PULSE 71; TEMP 36.3; O2SAT 95
[2016-04-23] MEDS: LEVOTHYROXINE 75 MCG TAB PO SCH (05:45)
[2016-04-23 06:00] LABS: BASO % 0.2 %; BASO ABS # 0.02 K/uL (0-0.2); COMPLETE YES; EOS % 2.4 %; HEMATOCRIT 43.5 % (37-47); LYMPH % 24.1 %; LYMPH ABS # 2.84 K/uL (1.2-3.4); MEAN CELL VOLUME 92.9 fL (80-100); MEAN CORPUSCULAR HGB CONC 33.3 g/dl (32-36); MEAN PLATELET VOLUME 9.6 fL (7.4-10.4); NEUT % 63.3 %; PLATELET COUNT 279 K/uL (130-400); RED BLOOD COUNT 4.68 M/uL (4.2-5.4); WHITE BLOOD COUNT 11.78 K/uL (4.8-10.8)
[2016-04-23 06:10] LABS: INR 1.4 (0.9-1.1); PROTHROMBIN TIME (PATIENT) 15.7 SECONDS (9.0-12.0)
[2016-04-23 06:27] LABS: BUN/CREATININE RATIO 20.2 (10-20); CALCIUM 8.2 mg/dl (8.5-10.1); CREATININE 1.4 mg/dl (0.60-1.20); POTASSIUM 3.6 mmol/L (3.5-5.1)
[2016-04-23 06:29] LABS: ALB/GLOB RATIO 0.9 (0.9-2)
[2016-04-23 07:04] VITALS: BP 117/79; PULSE 84; TEMP 36.5; O2SAT 94
[2016-04-23] MEDS: ENOXAPARIN 80 MG/0.8 ML SYR SQ SCH (07:41)
[2016-04-23] MEDS: METOPROLOL SUCC 50MG EXT REL TAB PO SCH (07:41)
[2016-04-23] MEDS: POTASSIUM CHLORIDE 20 MEQ TABCR PO SCH (07:41)
[2016-04-23] MEDS: ATORVASTATIN 10 MG TAB PO SCH (07:41)
[2016-04-23] MEDS: PANTOprazole SOD 40 MG TAB PO SCH (07:41)
[2016-04-23] MEDS ORDERED: FUROSEMIDE 40 MG TAB PO SCH (09:00)
[2016-04-23] MEDS ORDERED: FUROSEMIDE 20 MG TAB PO SCH (09:00)
[2016-04-23] MEDS ORDERED: PRT40 PO (10:02)
[2016-04-23] MEDS ORDERED: LVNIS80 SQ (10:02)
--- NOTE | 2016-04-23 10:10 | Discharge Instructions ---
Discharge Instructions Date of Service Apr 23, 2016. Admission Reason for Admission: Lower GI bleed from hemorrhoids, acute diastolic HF Discharge Discharge Diagnosis / Problem: Lower GI bleed from hemorrhoids, acute on chronic diastolic heart failure Discharge Goals Goal(s): Improve function, Diagnostic testing (repeat CT chest in 6 months) Activity Recommendations Activity Limitations: resume your previous activity Lifting Limitations: none Exercise/Sports Limitations: as tolerated Shower/Bathe: no limitations Driving or Machine Use: no limitations . Instructions / Follow-Up Instructions / Follow-Up Medications: - PROTONIX: 40mg twice a day for one month, after one month you should change dose to once daily, this is to treat esophagitis from reflux - LOVENOX: inject tonight and tomorrow morning for anticoagulation while your INR rises - COUMADIN: resume your previous dosing, your INR was elevated on admission because of the antibiotic you were taking GI bleeding: likely due to hemorrhoids, no further bleeding, if hemorrhoids would continue to be problematic your family doctor could refer you to surgeon Esophagitis: EGD showed severe esophagitis, you need to take Protonix twice a day for treatment, this will decrease acid production in your stomach, after one month reduce dose to once daily Lung nodules: you need a CT scan in 6 months to monitor to make sure the nodules are stable, you family doctor can order this Elevated liver tests: very mild, liver US showed some dilation of extra hepatic ducts, serology studies negative, likely due to chronic heart failure causing some liver congestion FOLLOW UP - make an appointment with Dr. Rodriguez in one week - lab work: you need to have INR and renal function tested at the end of the week, results will be sent to Dr. Rodriguez Current Hospital Diet Patient's current hospital diet: Low Sodium Diet (2gm Na) Discharge Diet Recommended Diet: Low Sodium Diet (2gm Na) Pending Studies Studies pending at discharge: no Laboratory Results Last Resulted CBC 04/23/16 05:20 Red Blood Count 4.68, Mean Corpuscular Volume 92.9, Mean Corpuscular Hemoglobin 31.0, Mean Corpuscular Hemoglobin Concent 33.3, Mean Platelet Volume 9.6, Neutrophils (%) (Auto) 63.3, Lymphocytes (%) (Auto) 24.1, Monocytes (%) (Auto) 8.0, Eosinophils (%) (Auto) 2.4, Basophils (%) (Auto) 0.2, Neutrophils # (Auto) 7.46, Lymphocytes # (Auto) 2.84, Monocytes # (Auto) 0.94, Eosinophils # (Auto) 0.28, Basophils # (Auto) 0.02 Last Resulted BMP 04/23/16 05:20 Lipid Panel Test 04/20/16 06:07 Range/Units Triglycerides Level 172 H 0-150 mg/dl Cholesterol Level 148 0-200 mg/dl HDL Cholesterol 46 mg/dl Cholesterol/HDL Ratio 3.2 LDL Cholesterol, Calculated 68 mg/dl Medical Emergencies . Who to Call and When: Medical Emergencies: If at any time you feel your situation is an emergency, please call 911 immediately. . Non-Emergent Contact Non-Emergency issues call your: Primary Care Provider Call Non-Emergent contact if: you have a fever, you have any medication questions . . "Provider Documentation" section prepared by Jeffery Jerez. VTE Core Measure Inpt VTE Proph given/why not?: Enoxaparin (Lovenox)SQ [place] Drug Monitoring Program Search Results: no issues identified
[2016-04-23 11:18] VITALS: BP 120/86; PULSE 84; TEMP 36.3; O2SAT 94
--- NOTE | 2016-04-23 15:23 | Discharge Summary ---
Discharge Summary Date of Service Apr 23, 2016. Discharge Summary Admission Date: Apr 19, 2016 at 18:19 Discharge Date: Apr 23, 2016 Discharge Disposition: Home Principal Diagnosis: Acute on chronic diastolic heart failure Problems/Secondary Diagnoses: Lower GI bleed, hemorrhoids Erosive esophagitis Lung nodule colonic polyps elevated LFT Immunizations: Have You Had Influenza Vaccine: No Procedures: EGD - esophagitis Colonoscopy - polyps, biopsied Consultations: Gastroenterology Medication Reconciliation New Medications: Enoxaparin (Lovenox) 80 Mg/0.8 Ml Inj 80 MG SQ Q12 for 1 Day, #2 DOSE 0 Refills Pantoprazole (Pantoprazole Sodium) 40 Mg Tab 40 MG PO BID, #60 TAB 3 Refills take twice a day for one month then go to once daily Continued Medications: Atorvastatin (Lipitor) 10 Mg Tab 10 MG PO DAILY, TAB Cholecalciferol (D 5000) 5,000 Unit Tab 5000 INTERUNIT PO DAILY Furosemide (Lasix) 20 Mg Tab 20 MG PO DAILY, TAB Levothyroxine Sodium (Levothyroxine Sodium) 75 Mcg Tab 75 MCG PO DAILY for 30 Days, #30 TAB 5 Refills Metoprolol Succ (Toprol Xl) (Toprol-Xl) 50 Mg Tabcr 50 MG PO DAILY, #30 TAB Potassium Chloride (Micro-K Ext Rel) 10 Meq Capcr 20 MEQ PO DAILY, CAP Ropinirole (Requip) 1 Mg Tab 1 MG PO DAILY, TAB Warfarin Sod (Jantoven) 2 Mg Tab 2 MG PO DAILY, TAB patient takes 2 mg sat, saturday, saturday Discontinued Medications: Levofloxacin (Levofloxacin) 750 Mg Tab 750 MG PO Q2D@11 for 4 Days, #2 TAB Prednisone Tab (Prednisone) 10 Mg Tab 40 MG PO DAILY, #14 TAB take 40 mg berry yfro 2 days then take 20mg daily for 2 days then take 10 mg daily for 2 days then stop Discharge Exam Patient feeling great today, completely independent, ambulating in halls. No chest pain, no dyspnea at rest or on exertion. she had a BM, no blood. long discussion regarding discharge and plans for follow up all questions answered, patient felt more than ready to go home to her apartment Review of Systems: Constitutional: No chills, No fatigue, No fever, No problem reported, No sweats, No weakness, No weight loss Eyes: No diplopia, No discharge, No eye pain, No problem reported, No redness, No worsening of vision ENT: No dental problems, No hearing loss, No nasal symptoms, No problem reported, No sore throat, No tinnitus, No trouble swallowing, No unusual epistaxis Respiratory: No cough, No dyspnea at rest, No dyspnea on exertion, No hemoptysis, No problem reported, No shortness of breath, No sputum, No wheezing Cardiovascular: No PND, No chest pain, No claudication, No edema, No orthopnea, No palpitations, No problem reported Abdomen: No GI bleeding, No constipation, No diarrhea, No nausea, No pain, No problem reported, No vomiting Musculoskeletal: No calf pain, No joint pain, No muscle pain, No problem reported, No swelling Genitourinary - Female: No dysuria, No urinary frequency, No urinary incontinence, No urinary retention, No urinary urgency Neurologic: No balance problems, No memory loss, No numbness/tingling, No paralysis, No problem reported, No vertigo, No weakness Psychiatric: No anhedonism, No anxiety, No depression symptoms, No insomnia , No problem reported, No substance abuse Endocrine: No excessive thirst, No excessive urination, No fatigue, No problem reported Hematologic / Lymphatic: No abnormal bleeding/bruising, No clotting problems , No night sweats, No problem reported, No swollen lymph nodes Integumentary: No bleeding, No color change, No itch, No new/changing skin lesions, No problem reported, No rash Physical Exam: General Appearance: WD/WN, no apparent distress Eyes: normal inspection, EOMI, sclerae normal ENT: normal ENT inspection, hearing grossly normal, pharynx normal Neck: supple, no adenopathy, no JVD, trachea midline Respiratory/Chest: chest non-tender, lungs clear, normal breath sounds, no respiratory distress, no accessory muscle use Cardiovascular: no edema, no gallop, no JVD, no murmur, normal peripheral pulses, + irregularly irregular Abdomen / GI: normal bowel sounds, non tender, soft, no organomegaly Extremities: normal inspection, no calf tenderness, normal capillary refill , no pedal edema, normal range of motion 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 She was diuresed with Lasix IV and breathing returned to normal. She also presented with some bright red blood per rectum, full work up with GI revealed erosive esophagitis that was actually asymptomatic for her as well as colonoscopy that revealed colonic polyps that were removed and sent for pathology. Overall patient doing well, she is at baseline weight and volume status, she would like to go home. She is eating well, moving bowels and urinating without difficulty. All her questions were answered. Acute on chronic diastolic heart failure, acute component resolved after IV lasix diuresis - CTA neg PE - switch to po lasix 40 mg daily which is her home dose - no plans to start ELIZABETH/ARB due to slightly elevated Cr repeat labs as outpatient and send to PCP patient instructed to weigh herself daily Leukocytosis - likely from steroids - improving and patient remains afebrile - cultures negative including BCx from prior admission, no e/o pna on ct Erosive esophagitis - patient had no symptoms - GI recommends Protonix BID x 1 month then to once daily Colonic polyps - several polyps, all 3-4mm, removed - GI will call patient with pathology results Supratherapeutic INR - 2/2 abx therapy (Levaquin for pneumonia), s/p low dose vit K on admission - INR 1.4 - resume home dose of Coumadin since the elevated INR was due to interaction with quinolone - repeat INR outpatient in several days - 24 more hours of Lovenox, patient says she is comfortable giving herself injections Lower GI bleed, hemorrhoidal, resolved - hb stable Recent pneumonia - clear on CT - last day of steroids today Elevated LFTs - likely from congestion - Abd US: no obvious etiology, initial serology for Hepatitis negative mild IVONNE on CKD II/IIIa: Cr is 1.4 today baseline of 0.9-1.1 Lasix 40 mg daily, repeat BMP on with results to PCP rise in Cr due to aggressive IV diuresis while admitted, should resolve quickly Pulmonary nodule - patient reports this was present on prior imaging studies and is not new - will need a repeat CT scan in 6 months Total Time Spent: Greater than 30 minutes This includes examination of the patient, discharge planning, medication reconciliation, and communication with other providers. Discharge Instructions Please refer to the electronic Patient Visit Report (Discharge Instructions) for additional information. Follow-Up Dr. Rodriguez in one week, follow up on repeat INR and BMP this week Gastroenterology will call with biopsy results Additional Copies To Sherwin Aponte M.D.; Lg Rodriguez MD
[2016-04-24] MEDS ORDERED: WARF3TAB6 PO (16:32)
[2016-08-28] MEDS ORDERED: FRS/40 PO (12:42)
[2016-08-28] MEDS ORDERED: METO-217 PO (12:42)
[2016-08-28] MEDS ORDERED: ASPI81TA28 PO (12:42)
[2016-08-28] MEDS ORDERED: LEVO75TA5 PO (12:42)
== END 2016-04-23 11:49 | disposition home or self-care (01) | DRG 291 ==
LOC: ENRESERVDT → ENRESERVTM → EDBD 13:56 → C.EDC 13:58 → C.MED 18:19
PROVIDERS: ADMIT Internal Medicine; ATTEND Internal Medicine
PROC: 0DBH8ZX Excision of Cecum, Via Natural or Artificial Opening Endoscopic, Diagnostic (ICD-10-PCS; principal; 2016-04-20 09:20)
PROC: 0DBL8ZX Excision of Transverse Colon, Via Natural or Artificial Opening Endoscopic, Diagnostic (ICD-10-PCS; principal; 2016-04-20 09:20)
PROC: 0DBQ8ZX Excision of Anus, Via Natural or Artificial Opening Endoscopic, Diagnostic (ICD-10-PCS; principal; 2016-04-20 09:20)
PROC: 0DB58ZX Excision of Esophagus, Via Natural or Artificial Opening Endoscopic, Diagnostic (ICD-10-PCS; principal; 2016-04-20 09:20)
DX: I13.0 Hypertensive heart and chronic kidney disease with heart failure and stage 1 through stage 4 chronic kidney disease, or unspecified chronic kidney disease (principal); I50.33 Acute on chronic diastolic (congestive) heart failure; K57.31 Diverticulosis of large intestine without perforation or abscess with bleeding; N17.9 Acute kidney failure, unspecified; K22.10 Ulcer of esophagus without bleeding; K62.5 Hemorrhage of anus and rectum; R91.1 Solitary pulmonary nodule; N18.3 Chronic kidney disease, stage 3 (moderate); K31.7 Polyp of stomach and duodenum; K76.0 Fatty (change of) liver, not elsewhere classified; E78.00 Pure hypercholesterolemia, unspecified; E78.5 Hyperlipidemia, unspecified; I48.2 Chronic atrial fibrillation; D72.829 Elevated white blood cell count, unspecified; T38.0X5A Adverse effect of glucocorticoids and synthetic analogues, initial encounter; D12.3 Benign neoplasm of transverse colon; R79.1 Abnormal coagulation profile; K80.20 Calculus of gallbladder without cholecystitis without obstruction; D12.0 Benign neoplasm of cecum; E55.9 Vitamin D deficiency, unspecified; K44.9 Diaphragmatic hernia without obstruction or gangrene; K21.0 Gastro-esophageal reflux disease with esophagitis; K62.0 Anal polyp; J44.9 Chronic obstructive pulmonary disease, unspecified; K64.8 Other hemorrhoids; K83.8 Other specified diseases of biliary tract; E03.2 Hypothyroidism due to medicaments and other exogenous substances; F17.200 Nicotine dependence, unspecified, uncomplicated; R60.0 Localized edema; I87.2 Venous insufficiency (chronic) (peripheral); Z86.39 Personal history of other endocrine, nutritional and metabolic disease; Z95.0 Presence of cardiac pacemaker; Z96.1 Presence of intraocular lens; Z79.01 Long term (current) use of anticoagulants; Z79.52 Long term (current) use of systemic steroids; Z79.899 Other long term (current) drug therapy

== ENCOUNTER 2016-04-24 13:34 | Inpatient (IN) | payer OTHER, MEDICARE ==
[2016-04-24] VITALS (28 sets, daily range): BP systolic 83–110; BP diastolic 52–72; PULSE 78–99; TEMP 36.4–37.3; O2SAT 95–98; Ht 167.6 cm; Wt 98.3 kg
[~2016-04-24] VITALS: Ht 167.6 cm; Wt 98.3 kg
[~2016-04-24 13:34] MED LIST changes: +LVNIS80 SQ; -LVQ750 PO; -PRED10TA PO; +PRT40 PO
[2016-04-24] MEDS ORDERED: OXYCODONE HCL IR 5 MG TAB (IMMEDIATE RELEASE) PO STA (13:50)
--- NOTE | 2016-04-24 14:53 | DIAGNOSTIC IMAGING REPORT ---
AP PELVIS AND RIGHT HIP 3 VIEWS CLINICAL HISTORY: Right hip and buttocks pain COMPARISON STUDY: No previous studies for comparison. FINDINGS: No acute fractures are visualized. There are no erosive or destructive changes. The joint space is relatively well-preserved for age. IMPRESSION: No fractures, dislocations, or destructive lesions are visualized Electronically signed by: Aman De Jesus M.D. 04/24/2016 2:52 PM Dictated Date/Time: 04/24/2016 2:51 PM
--- NOTE | 2016-04-24 14:57 | DIAGNOSTIC IMAGING REPORT ---
LUMBAR SPINE CT CT DOSE: 937.40 mGy.cm HISTORY: sciatica like pain rt side TECHNIQUE: Multiaxial CT images of the lumbar spine were performed and reformatted in the sagittal and coronal plane without the use of contrast. COMPARISON: None. FINDINGS: Small focal area of fusion within the right sacroiliac joint. The sacrum is intact. There is a partially visualized right retroperitoneal/iliopsoas hematoma. Moderate facet degenerative changes at L4-L5 and L5-S1. Mild dextroscoliosis of the lumbar spine which could be positional. No acute fracture or subluxation within the lumbar spine. Disc spaces are preserved for age. Small broad-based posterior disc bulge with ligamentum and facet hypertrophy at L4-L5 resulting in moderate central canal narrowing. Mild central canal narrowing at L3-L4. Mild bilateral neural foraminal narrowing at L3-L4 and L4-5. Moderate bilateral neural foraminal narrowing L5-S1 due to the disc bulge and facet hypertrophy. IMPRESSION: 1. Partially visualized right retroperitoneal/iliopsoas hematoma. Recommend dedicated pelvis CT for further evaluation. 2. Degenerative changes within the lower lumbar spine as described above. 3. No acute fracture or subluxation within the lumbar spine. Electronically signed by: Nolan Strange M.D. 04/24/2016 2:56 PM Dictated Date/Time: 04/24/2016 2:49 PM
[2016-04-24 15:39] LABS: ISTAT CREATININE 1.2 mg/dl (0.6-1.3); ISTAT HEMOGLOBIN 13.3 g/dl (12.0-16.0); ISTAT IONIZED CALCIUM 1.01 mmol/l (1.12-1.32)
[2016-04-24] MEDS ORDERED: OPTIRAY 320 IV PRN (15:45)
--- NOTE | 2016-04-24 16:09 | DIAGNOSTIC IMAGING REPORT ---
ABDOMEN AND PELVIS CT WITH IV CONTRAST CT DOSE: 551.45 mGy.cm HISTORY: Pain eval psoas hematoma TECHNIQUE: Multiaxial CT images of the abdomen and pelvis were performed following the use of intravenous contrast. COMPARISON STUDY: None. FINDINGS: Lung bases are considered clear. There is dilatation of the biliary ductal system. Etiology is unclear. Pancreas and spleen are unremarkable. Kidneys show component of cortical atrophy. There are findings of a right psoas and parasellar as right flank hematoma. This extends over geographic region of 6 x 8 x 12 cm. Bowel pattern is considered nonobstructive. There are several injection sites in the subcutaneous fat anterior abdominal wall. There is mild extension to the right inguinal region. Bladder is midline. There is no free fluid within the pelvic cul-de-sac. Findings of mild chronic sigmoid diverticulosis. IMPRESSION: 1. Right lateral pelvic sidewall and lower right iliopsoas hematoma measuring 6 x 8 x 12 cm. 2. Nonspecific dilatation of the biliary ductal system. 3. Otherwise negative study Electronically signed by: uGstavo Lamas M.D. 04/24/2016 4:08 PM Dictated Date/Time: 04/24/2016 4:03 PM
[2016-04-24] MEDS ORDERED: WARF3TAB6 PO (16:32)
[2016-04-24] MEDS ORDERED: PHYTONADIONE INJ 5 MG in SODIUM CHLORIDE 0.9% 50ML 50 ML IV STA (18:07)
[2016-04-24] MEDS ORDERED: ONDANSETRON INJ 2 MG/ML 2 ML VIAL IV PRN (18:15)
[2016-04-24] MEDS ORDERED: ACETAMINOPHEN 325 MG TAB PO PRN (18:15)
[2016-04-24] MEDS ORDERED: MAGNESIUM HYDROXIDE SUSP 30 ML UDC PO PRN (18:15)
[2016-04-24] MEDS ORDERED: POLYETHYLENE (MIRALAX) 17 GM PACK PO PRN (18:15)
[2016-04-24] MEDS ORDERED: ALUMINUM/MAGNESIUM/SIMETH (MAALOX MAX) 30 ML UDC PO PRN (18:15)
[2016-04-24] MEDS ORDERED: ZOLPIDEM TARTRATE 5 MG TAB PO PRN (18:15)
[2016-04-24] MEDS ORDERED: IV FLUIDS COMPLETED PRN ×2 (18:30→21:45)
--- NOTE | 2016-04-24 18:31 | History and Physical ---
History & Physical Date & Time of Service: Apr 24, 2016 at 18:06 Chief Complaint: Hip Pain Primary Care Physician: Lg Rodriguez MD History of Present Illness Source: patient 75 y/o F w/Hx AF/pacer on Coumadin. Recent admissions to the hospital for PNM and then CHF exacerbation respectively. Developed pain in her lower back tracking down her RLE mimicking sciatica. She was evaluated in the ER and was noted to have a right iliopsoas hematoma measuring 6 x 8 x 12 cm. She denies SOB, light-headedness, CP, nausea, vomiting or dysuria. She has been on Coumadin for 12 years prior without complication. Past Medical/Surgical History Medical Problems: (1) Hypertension Status: Chronic (2) Pacemaker Status: Chronic (3) Restless leg syndrome Status: Chronic 4) Chronic diastolic CHF 5) Chronic AF - pacer 6) HTN 7) HPL 8) Hypothyroid Social History Smoking Status: Former Smoker Drug Use: none Marital Status: Occupational Status: retired Immunizations History of Influenza Vaccine: No Allergies Coded Allergies: No Known Allergies (Unverified , 04/19/16) Home Medications Scheduled Atorvastatin (Lipitor), 10 MG PO DAILY Cholecalciferol (D 5000), 5,000 INTERUNIT PO DAILY Enoxaparin (Lovenox), 80 MG SQ Q12 Furosemide (Lasix), 20 MG PO DAILY Levothyroxine Sodium (Levothyroxine Sodium), 75 MCG PO DAILY Metoprolol Succ (Toprol Xl) (Toprol-Xl), 50 MG PO DAILY Pantoprazole (Pantoprazole Sodium), 40 MG PO BID Potassium Chloride (Micro-K Ext Rel), 20 MEQ PO DAILY Ropinirole (Requip), 1 MG PO DAILY Warfarin Sod (Jantoven), 2 MG PO 3XWK Warfarin Sod (Jantoven), 3 MG PO 4XWK Review of Systems Constitutional: No chills, No fever, No sweats Eyes: No eye pain, No worsening of vision ENT: No hearing loss, No nasal symptoms, No unusual epistaxis Respiratory: No cough, No sputum, No wheezing Cardiovascular: No PND, No chest pain, No orthopnea Abdomen: No nausea, No pain, No vomiting Musculoskeletal: + muscle pain, + problem reported (lower back pain tracking down R leg), No joint pain Genitourinary - Female: No dysuria, No hematuria, No urinary frequency, No urinary incontinence, No urinary retention, No urinary urgency Neurologic: No memory loss, No paralysis, No weakness Psychiatric: No depression symptoms Endocrine: No excessive thirst, No fatigue Physical Exam Vital Signs Date Time Temp Pulse Resp B/P Pulse Ox O2 Delivery O2 Flow Rate FiO2 04/24/16 16:29 70 18 127/67 96 Room Air 04/24/16 13:41 36.5 85 16 133/77 96 Room Air General Appearance: WD/WN, no apparent distress, + pertinent finding ( Overweight elderly female in no acute distress) Head: normocephalic, atraumatic Eyes: normal inspection, PERRL, EOMI ENT: normal ENT inspection, hearing grossly normal, TMs normal, pharynx normal Neck: supple, no adenopathy, thyroid normal, no JVD Respiratory/Chest: chest non-tender, lungs clear, normal breath sounds, no respiratory distress, no accessory muscle use Cardiovascular: no edema, no gallop, + pertinent finding (FAint heart sounds - mild systolic murmur - rate appears regular at present) Abdomen/GI: normal bowel sounds, non tender, soft Back: normal inspection, no CVA tenderness, no muscle spasm, normal range of motion Extremities/Musculoskelatal: normal inspection, no calf tenderness, normal capillary refill, + pertinent finding (Pain to palpation of R upper portion of LE - pulses and sensation intact) 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, no motor/sensory deficits, alert, normal mood/affect, normal reflexes, oriented x 3 Skin: normal color, warm/dry, no rash Diagnostics Laboratory Results Results Past 24 Hours Test 04/24/16 15:17 04/24/16 15:23 Range/Units Bedside Prothrombin Time INR 1.8 0.9-1.1 Bedside Hemoglobin 13.3 12.0-16.0 g/dl Bedside Hematocrit 39 37-47 % Bedside Sodium 133 135-144 mEq/L Bedside Potassium 3.8 3.3-5.0 mEq/L Bedside Chloride 94 101-112 mEq/L Bedside Total CO2 25 24-31 mEq/l Anion Gap 18.0 16-25 mmol/L Bedside Blood Urea Nitrogen 24 7-18 mg/dl Bedside Creatinine 1.2 0.6-1.3 mg/dl Bedside Glucose (other) 130 70-99 mg/dl Bedside Ionized Calcium (Emerald) 1.01 1.12-1.32 mmol/l Diagnostic Radiology Right lateral pelvic sidewall and lower right iliopsoas hematoma measuring 6 x 8 x 12 cm. Normal EKG Impression Assessment and Plan 75 y/o F w/Hx AF/pacer on Coumadin. Recent admissions to the hospital for PNM and then CHF exacerbation respectively. Developed pain in her lower back tracking down her RLE mimicking sciatica. She was evaluated in the ER and was noted to have a right iliopsoas hematoma measuring 6 x 8 x 12 cm. She denies SOB, light-headedness, CP, nausea, vomiting or dysuria. She has been on Coumadin for 12 years prior without complication. 1) Hematoma - will monitor on telemetry with vascular checks - provided one unit FFPs , 5mg vit K - Coumadin D/Cd. 2) Chronic diastolic CHF - euvolemic at present - cont B sherry - hold Lasix pending AM eval 3) AF - rate controlled - pt with pacer - cont B sherry - restart Coumadin when possible - EKG pending 4) Hypothyroid - cont Synthroid Full code - prophylaxis contraindicated Total time for this admit including review of recent records, labs, imaging - discussion with pt , family and ER attending - 41 min Level of Care Telemetry Resuscitation Status FULL RESUSCITATION VTE Prophylaxis Given or contraindicated: Contraindicated
[2016-04-24] MEDS: SODIUM CHLORIDE 0.9% 1000ML 1,000 ML IV SCH ×2 (20:30→22:42)
[2016-04-24 20:51] LABS: ISTAT CREATININE 1.2 mg/dl (0.6-1.3); ISTAT HEMOGLOBIN 10.2 g/dl (12.0-16.0); ISTAT IONIZED CALCIUM 0.94 mmol/l (1.12-1.32)
[2016-04-24 23:26] LABS: BUN/CREATININE RATIO 17.2 (10-20); CALCIUM 7.9 mg/dl (8.5-10.1); CREATININE 1.3 mg/dl (0.60-1.20); MAGNESIUM 1.9 mg/dl (1.8-2.4); POTASSIUM 3.7 mmol/L (3.5-5.1)
[2016-04-24 23:29] LABS: INR 1.6 (0.9-1.1); PARTIAL THROMBOPLASTIN RATIO 1.4; PROTHROMBIN TIME (PATIENT) 17.8 SECONDS (9.0-12.0)
[2016-04-24 23:30] LABS: ALB/GLOB RATIO 0.9 (0.9-2); CKMB/CK RATIO 0.6 (0-3.0)
[2016-04-24 23:48] LABS: BASO % 0.1 %; BASO ABS # 0.01 K/uL (0-0.2); COMPLETE YES; EOS % 0.3 %; HEMATOCRIT 31.4 % (37-47); LYMPH % 13.2 %; LYMPH ABS # 1.93 K/uL (1.2-3.4); MEAN CELL VOLUME 94.3 fL (80-100); MEAN CORPUSCULAR HEMOGLOBIN 31.8 pg (25-34); MEAN CORPUSCULAR HGB CONC 33.8 g/dl (32-36); MEAN PLATELET VOLUME 10.1 fL (7.4-10.4); MONO % 9.5 %; NEUT % 75.9 %; PLATELET COUNT 275 K/uL (130-400); RED BLOOD COUNT 3.33 M/uL (4.2-5.4); WHITE BLOOD COUNT 14.66 K/uL (4.8-10.8)
[2016-04-24 23:51] LABS: URINE APPEARANCE CLOUDY (CLEAR); URINE BILIRUBIN NEG (NEG); URINE COLOR DK YELLOW; URINE EPITHELIAL CELL AUTO >30 /lpf (0-5); URINE NITRITE NEG (NEG); URINE SPECIFIC GRAVITY > 1.045 (1.000-1.030); UROBILINOGEN NEG (NEG)
[2016-04-24 23:52] LABS: MANUAL MICROSCOPIC REQUIRED? NO; REVIEW REQ? NO
[2016-04-24] MEDS: PANTOprazole SOD 40 MG TAB PO SCH (23:53)
[2016-04-24] MEDS: ALBUMIN HUMAN 25% 12.5 GM/50 ML VIAL IV SCH (23:54)
[2016-04-25] VITALS (55 sets, daily range): BP systolic 79–126; BP diastolic 35–92; PULSE 84–118; TEMP 36.4–36.9; O2SAT 80–99
[2016-04-25] MEDS: ALBUMIN HUMAN 25% 12.5 GM/50 ML VIAL IV SCH ×5 (00:04→10:42)
[2016-04-25] MEDS ORDERED: PHYTONADIONE INJ 5 MG in SODIUM CHLORIDE 0.9% 50ML 50 ML IV STA (00:06)
[2016-04-25] MEDS ORDERED: ACETAMINOPHEN 1000 MG/100 ML IV IV ONE (00:45)
[2016-04-25] MEDS ORDERED: NURSING VERBAL MED ORDER ONE ×8 (00:45→22:00)
[2016-04-25] MEDS ORDERED: LIDODERM (LIDOCAINE) PATCH 5% TD ONE (02:00)
[2016-04-25] MEDS ORDERED: FENTANYL CITRATE INJ 50 MCG/1 ML 2 ML VIAL ONE (03:30)
[2016-04-25] MEDS ORDERED: LORAZEPAM 2 MG/ML 1 ML VIAL ONE (04:26)
[2016-04-25] MEDS ORDERED: LORAZEPAM 2 MG/ML 1 ML VIAL IV PRN (04:45)
[2016-04-25] MEDS ORDERED: MoRPHine SULFATE 4 MG/ML 1 ML CARP\\VIAL IV PRN (04:45)
[2016-04-25] MEDS: MoRPHine SULFATE 2 MG/ML CARP IV PRN ×2 (04:54→10:28)
[2016-04-25 05:39] LABS: HEMATOCRIT 28.1 % (37-47); MEAN CELL VOLUME 89.8 fL (80-100); MEAN CORPUSCULAR HEMOGLOBIN 30.7 pg (25-34); MEAN CORPUSCULAR HGB CONC 34.2 g/dl (32-36); MEAN PLATELET VOLUME 10.1 fL (7.4-10.4); PLATELET COUNT 197 K/uL (130-400); RED BLOOD COUNT 3.13 M/uL (4.2-5.4); WHITE BLOOD COUNT 21.86 K/uL (4.8-10.8)
[2016-04-25 06:15] LABS: BUN/CREATININE RATIO 16.3 (10-20); CALCIUM 7.9 mg/dl (8.5-10.1); CREATININE 1.8 mg/dl (0.60-1.20); MAGNESIUM 2.2 mg/dl (1.8-2.4); POTASSIUM 4.3 mmol/L (3.5-5.1)
[2016-04-25] MEDS ORDERED: NSS + 20MEQ KCL 1000ML 1,000 ML IV SCH (06:15)
[2016-04-25 06:16] LABS: ALB/GLOB RATIO 1.7 (0.9-2)
[2016-04-25] MEDS: LEVOTHYROXINE 75 MCG TAB PO SCH (06:30)
[2016-04-25] MEDS ORDERED: MoRPHine SULFATE 2 MG/ML CARP IV STA (07:35)
--- NOTE | 2016-04-25 08:04 | Clinical Documentation Query ---
JORDON Randolph : CLINICAL DOCUMENTATION QUERY QUERY 1 OF 2 Patient is a 75 year old female presenting for evaluation and treatment of lower back pain with sciatic symptomology, subsequently determined to be the result of a right iliopsoas hematoma. Patient has been taking Coumadin as prescribed in the setting of atrial fibrillation. She has been treated with FFP, Vitamin K, discontinuation of Coumadin, and transfusion of PRBC's. As clinically appropriate, consider clarification as suggested below as this directly impacts DRG assignment. Thank you. In your clinical opinion is this patient being managed for: (X) ?Drug induced (Coumadin) hemorrhagic disorder ( ) Other explanation of clinical findings (Please Explain) ( ) Unable to determine (Please Define) ( ) Need to Discuss ( ) Not Agree The medical record reflects the following clinical findings, treatment, and risk factors. Clinical Indicators: As above Treatment:She has been treated with FFP, Vitamin K, discontinuation of Coumadin, and transfusion of PRBC's, serial hematology Risk Factors: Coumadin therapy. QUERY 2 OF 2 Admission laboratory hemoglobin and hematocrit were 10.6 g/dl and 31.4%. Approximately 8 hours later, hemoglobin was repeated and was noted to be 8.2 g/dl after transfusion of one unit of PRBC's. She has subsequently been transfused an additional unit of PRBC's and is being monitored in ICU with serial hematology. In your clinical opinion is this patient being managed for: (X) Acute blood loss anemia ( ) Other explanation of clinical findings (Please Explain) ( ) Unable to determine (Please Define) ( ) Need to Discuss ( ) Not Agree The medical record reflects the following clinical findings, treatment, and risk factors. Clinical Indicators: As above Treatment: Transfusion of PRBC's Risk Factors: Iliopsoas hematoma in the setting of Coumadin therapy Please clarify and document your clinical opinion in the progress notes and discharge summary. Terms such as "probable", "suspected", "likely", "questionable", "possible", or "still to be ruled out" are acceptable. IF IN AGREEMENT, YOU MUST DOCUMENT ABOVE DIAGNOSTIC STATEMENT IN DAILY PROGRESS NOTES AND DISCHARGE SUMMARY. This document is not part of the patient's record. Thank You, Sherwin Deluca, RN [phone]
--- NOTE | 2016-04-25 08:05 | Clinical Documentation Query ---
BRITTANIE RUIZ : CLINICAL DOCUMENTATION QUERIES QUERY 1 OF 2 Patient is a 75 year old female presenting for evaluation and treatment of lower back pain with sciatic symptomology, subsequently determined to be the result of a right iliopsoas hematoma. Patient has been taking Coumadin as prescribed in the setting of atrial fibrillation. She has been treated with FFP, Vitamin K, discontinuation of Coumadin, and transfusion of PRBC's. As clinically appropriate, consider clarification as suggested below as this directly impacts DRG assignment. Thank you. In your clinical opinion is this patient being managed for: ( x ) Drug induced (Coumadin) hemorrhagic disorder ( ) Other explanation of clinical findings (Please Explain) ( ) Unable to determine (Please Define) ( ) Need to Discuss ( ) Not Agree The medical record reflects the following clinical findings, treatment, and risk factors. Clinical Indicators: As above Treatment:She has been treated with FFP, Vitamin K, discontinuation of Coumadin, and transfusion of PRBC's, serial hematology Risk Factors: Coumadin therapy. QUERY 2 OF 2 Admission laboratory hemoglobin and hematocrit were 10.6 g/dl and 31.4%. Approximately 8 hours later, hemoglobin was repeated and was noted to be 8.2 g/dl after transfusion of one unit of PRBC's. She has subsequently been transfused an additional unit of PRBC's and is being monitored in ICU with serial hematology. In your clinical opinion is this patient being managed for: ( x ) Acute blood loss anemia ( ) Other explanation of clinical findings (Please Explain) ( ) Unable to determine (Please Define) ( ) Need to Discuss ( ) Not Agree The medical record reflects the following clinical findings, treatment, and risk factors. Clinical Indicators: As above Treatment: Transfusion of PRBC's Risk Factors: Iliopsoas hematoma in the setting of Coumadin therapy Please clarify and document your clinical opinion in the progress notes and discharge summary. Terms such as "probable", "suspected", "likely", "questionable", "possible", or "still to be ruled out" are acceptable. IF IN AGREEMENT, YOU MUST DOCUMENT ABOVE DIAGNOSTIC STATEMENT IN DAILY PROGRESS NOTES AND DISCHARGE SUMMARY. This document is not part of the patient's record. Thank You, Sherwin Deluca, RN [phone]
[2016-04-25] MEDS ORDERED: FUROSEMIDE 20 MG TAB PO SCH (09:00)
[2016-04-25] MEDS ORDERED: POTASSIUM CHLORIDE 10 MEQ TABCR PO SCH (09:00)
[2016-04-25] MEDS ORDERED: METOPROLOL SUCC 50MG EXT REL TAB PO SCH (09:00)
[2016-04-25] MEDS: ROPINIROLE HCL 1 MG TAB PO SCH (09:44)
[2016-04-25] MEDS: PANTOprazole SOD 40 MG TAB PO SCH ×2 (09:44→21:07)
[2016-04-25] MEDS: ATORVASTATIN 10 MG TAB PO SCH (09:44)
[2016-04-25] MEDS: CHOLECALCIFEROL 1000 INTER.UNIT TAB PO SCH (09:44)
[2016-04-25] MEDS: SODIUM CHLORIDE 0.9% 1000ML 1,000 ML IV SCH ×2 (09:45→21:07)
--- NOTE | 2016-04-25 10:16 | Hospitalist Progress Note ---
Hospitalist Progress Note Date of Service Apr 25, 2016. (Elisa Maxwell ., BEHZADC) Subjective Pt evaluation today including: conversation w/ patient, conversation w/ family (daughters at bedside), physical exam, chart review, lab review, review of studies, review of inpatient medication list Pain: 8/10 R flank and RLE with movement, better at rest PO Intake: No appetite, refusing meals Voiding: martinez catheter in place Patient reports feeling weak and fatigued. She has not slept well the last 2 nights secondary to pain. She has just received IV morphine, which is helping to alleviate the pain. She reports an 8/10 pain in her right flank and RLE with movement, but the pain is better at rest. The pain does radiate down to around the level of the knee. She also complains of tingling from her right lower flank to the knee. She complains of occasional shortness of breath and wheezing. She also claims a mild nonproductive cough. She reports subjective fevers and chills that are intermittent. No fevers recorded here. Martinez catheter in place. Patient is refusing meals, no appetite. The patient denies chest pain, palpitations, claudication, nausea, vomiting, abdominal pain, dysuria, hematuria, urinary retention, and paralysis. Additional Comments: See HPI for pertinent positives and negatives. All other systems reviewed and negative. (Elisa Maxwell ., BEHZADC) Objective Vital Signs Date Time Temp Pulse Resp B/P Pulse Ox O2 Delivery O2 Flow Rate FiO2 04/25/16 09:00 93 16 113/77 96 Room Air 04/25/16 08:01 36.7 106 21 110/63 96 Room Air 04/25/16 08:00 Nasal Cannula 04/25/16 05:00 36.8 89 27 99/65 95 04/25/16 04:15 100 31 98 04/25/16 04:00 36.6 89 29 122/74 96 04/25/16 04:00 Room Air 04/25/16 03:45 90 27 122/84 96 04/25/16 03:30 93 18 116/76 98 04/25/16 03:20 98 24 108/70 97 04/25/16 03:15 36.8 86 38 104/67 98 04/25/16 03:15 86 20 104/67 98 04/25/16 03:00 92 22 104/61 98 04/25/16 02:58 92 31 105/57 99 04/25/16 02:45 36.7 96 34 92/53 04/25/16 02:45 92 34 92/53 98 04/25/16 02:30 95 29 110/60 98 04/25/16 02:15 85 24 114/76 95 04/25/16 02:00 90 26 126/67 95 04/25/16 01:50 86 25 93/66 95 Room Air 04/25/16 01:45 97 36 92/59 97 Room Air 04/25/16 01:30 105 21 95/59 95 Room Air 04/25/16 01:15 99 26 92/55 96 Room Air 04/25/16 01:00 95 19 96/61 95 Room Air 04/25/16 00:55 36.8 91 29 104/61 96 04/25/16 00:45 86 26 104/61 95 Room Air 04/25/16 00:30 88 24 109/63 95 Room Air 04/25/16 00:15 87 24 107/69 94 Room Air 04/25/16 00:06 87 17 114/68 97 Room Air 04/25/16 00:01 Room Air 04/25/16 00:00 93 36 95/65 97 Room Air 04/24/16 23:56 93 27 108/60 95 Room Air 04/24/16 23:50 93 33 100/72 95 Room Air 04/24/16 23:45 37.3 92 28 94/65 96 04/24/16 23:45 92 28 94/65 96 Room Air 04/24/16 23:40 87 27 87/54 97 Room Air 04/24/16 23:35 88 26 96/63 96 Room Air 04/24/16 23:30 87 19 96/56 97 Room Air 04/24/16 23:25 84 23 101/64 96 Room Air 04/24/16 23:20 89 36 88/68 98 Room Air 04/24/16 23:15 88 31 87/64 96 Room Air 04/24/16 23:15 88 31 87/64 96 04/24/16 23:10 94 24 110/60 96 Room Air 04/24/16 23:05 88 30 83/52 98 Room Air 04/24/16 23:00 88 19 96/61 97 Room Air 04/24/16 22:55 84 28 95/58 98 Room Air 04/24/16 22:50 84 27 89/59 98 Room Air 04/24/16 22:45 86 26 95/59 96 Room Air 04/24/16 22:45 36.6 86 26 95/59 96 04/24/16 22:40 78 42 85/58 95 Room Air 04/24/16 22:35 93 25 93/59 97 Room Air 04/24/16 22:35 36.6 93 25 93/59 97 04/24/16 22:30 78 21 87/55 96 Room Air 04/24/16 22:25 80 26 83/61 Room Air 04/24/16 22:20 84 25 83/60 Room Air 04/24/16 22:20 36.5 84 25 83/60 04/24/16 22:15 85 29 95/56 96 Room Air 04/24/16 21:55 36.5 78 20 97/54 96 0.0 04/24/16 21:41 36.7 88 20 84/54 96 04/24/16 21:19 79 20 107/66 93 Room Air 04/24/16 20:30 83 20 109/70 95 04/24/16 20:13 91 24 76/52 97 Room Air 04/24/16 20:00 85 20 90/56 96 04/24/16 19:49 36.4 04/24/16 19:49 99 20 98/63 96 04/24/16 19:32 36.6 88 20 92/64 95 04/24/16 19:22 87 20 95/66 96 Room Air 04/24/16 19:00 86 20 96 04/24/16 18:45 79 20 95 04/24/16 18:33 100 18 102/64 94 Room Air 04/24/16 18:15 96 Room Air 04/24/16 16:29 70 18 127/67 96 Room Air 04/24/16 13:41 36.5 85 16 133/77 96 Room Air (Elisa Maxwell, PA-C) Physical Exam General Appearance: WD/WN, + mild distress (patient appears uncomfortable, in pain), + obese Eyes: normal inspection, PERRL, EOMI, + pertinent finding (proptosis bilaterally R>L) ENT: normal ENT inspection, hearing grossly normal, pharynx normal Neck: supple, no JVD, trachea midline Respiratory/Chest: lungs clear, normal breath sounds, no respiratory distress, + decreased breath sounds Cardiovascular: no gallop, no murmur, + tachycardia, + irregularly irregular, + pertinent finding (weak peripheral pulses) Abdomen: normal bowel sounds, soft, + tenderness (RLQ mildly TTP), + pertinent finding (ecchymoses on abdomen secondary to SC injections from recent hospital stay) Extremities: normal inspection, no pedal edema, + pertinent finding (R hip and lateral aspect of RLE TTP to knee) Neurologic/Psychiatric: alert, normal mood/affect, oriented x 3, + pertinent finding (drowsy) Skin: normal color, warm/dry, no rash (Elisa Maxwell, PHILLIP) Laboratory Results Last 24 Hours Test 04/24/16 15:17 04/24/16 15:23 04/24/16 20:35 04/24/16 20:36 Bedside Prothrombin Time INR 1.8 Bedside Hemoglobin 13.3 g/dl 10.2 g/dl Bedside Hematocrit 39 % 30 % Bedside Sodium 133 mEq/L 134 mEq/L Bedside Potassium 3.8 mEq/L 3.7 mEq/L Bedside Chloride 94 mEq/L 94 mEq/L Bedside Total CO2 25 mEq/l 25 mEq/l Anion Gap 18.0 mmol/L 11.0 mmol/L 20.0 mmol/L Bedside Blood Urea Nitrogen 24 mg/dl 22 mg/dl Bedside Creatinine 1.2 mg/dl 1.2 mg/dl Bedside Glucose (other) 130 mg/dl 140 mg/dl Bedside Ionized Calcium (Emerald) 1.01 mmol/l 0.94 mmol/l White Blood Count 14.66 K/uL Red Blood Count 3.33 M/uL Hemoglobin 10.6 g/dL Hematocrit 31.4 % Mean Corpuscular Volume 94.3 fL Mean Corpuscular Hemoglobin 31.8 pg Mean Corpuscular Hemoglobin Concent 33.8 g/dl Platelet Count 275 K/uL Mean Platelet Volume 10.1 fL Neutrophils (%) (Auto) 75.9 % Lymphocytes (%) (Auto) 13.2 % Monocytes (%) (Auto) 9.5 % Eosinophils (%) (Auto) 0.3 % Basophils (%) (Auto) 0.1 % Neutrophils # (Auto) 11.13 K/uL Lymphocytes # (Auto) 1.93 K/uL Monocytes # (Auto) 1.40 K/uL Eosinophils # (Auto) 0.05 K/uL Basophils # (Auto) 0.01 K/uL RDW Standard Deviation 46.2 fL RDW Coefficient of Variation 13.4 % Immature Granulocyte % (Auto) 1.0 % Immature Granulocyte # (Auto) 0.14 K/uL Prothrombin Time 17.8 SECONDS Prothromb Time International Ratio 1.6 Activated Partial Thromboplast Time 35.3 SECONDS Partial Thromboplastin Ratio 1.4 Sodium Level 135 mmol/L Potassium Level 3.7 mmol/L Chloride Level 99 mmol/L Carbon Dioxide Level 25 mmol/L Blood Urea Nitrogen 22 mg/dl Creatinine 1.30 mg/dl Est Creatinine Clear Calc Drug Dose 40.4 ml/min Estimated GFR () 45.8 Estimated GFR (Non- 39.5 BUN/Creatinine Ratio 17.2 Random Glucose 135 mg/dl Calcium Level 7.9 mg/dl Magnesium Level 1.9 mg/dl Total Bilirubin 2.2 mg/dl Direct Bilirubin 0.9 mg/dl Aspartate Amino Transf (AST/SGOT) 42 U/L Alanine Aminotransferase (ALT/SGPT) 72 U/L Alkaline Phosphatase 91 U/L Total Creatine Kinase 263 U/L Creatine Kinase MB 1.6 ng/ml Creatine Kinase MB Ratio 0.6 Troponin I 0.016 ng/ml Total Protein 5.7 gm/dl Albumin 2.7 gm/dl Globulin 3.0 gm/dl Albumin/Globulin Ratio 0.9 Test 04/24/16 22:36 04/24/16 23:27 04/25/16 01:55 04/25/16 05:02 Bedside Glucose 152 mg/dl Urine Color DK YELLOW Urine Appearance CLOUDY Urine pH 6.0 Urine Specific T[place] > 1.045 Urine Protein NEG Urine Glucose (UA) NEG Urine Ketones NEG Urine Occult Blood TRACE Urine Nitrite NEG Urine Bilirubin NEG Urine Urobilinogen NEG Urine Leukocyte Esterase NEG Urine WBC (Auto) 1-5 /hpf Urine RBC (Auto) 10-30 /hpf Urine Hyaline Casts (Auto) 1-5 /lpf Urine Epithelial Cells (Auto) >30 /lpf Urine Bacteria (Auto) NEG Hemoglobin 8.2 g/dL 9.6 g/dL Heparin-PF4 Antibody Screen NEG White Blood Count 21.86 K/uL Red Blood Count 3.13 M/uL Hematocrit 28.1 % Mean Corpuscular Volume 89.8 fL Mean Corpuscular Hemoglobin 30.7 pg Mean Corpuscular Hemoglobin Concent 34.2 g/dl RDW Standard Deviation 47.8 fL RDW Coefficient of Variation 14.5 % Platelet Count 197 K/uL Mean Platelet Volume 10.1 fL Sodium Level 138 mmol/L Potassium Level 4.3 mmol/L Chloride Level 100 mmol/L Carbon Dioxide Level 26 mmol/L Anion Gap 12.0 mmol/L Blood Urea Nitrogen 29 mg/dl Creatinine 1.80 mg/dl Est Creatinine Clear Calc Drug Dose 29.2 ml/min Estimated GFR () 30.9 Estimated GFR (Non- 26.7 BUN/Creatinine Ratio 16.3 Random Glucose 157 mg/dl Calcium Level 7.9 mg/dl Magnesium Level 2.2 mg/dl Total Bilirubin 3.9 mg/dl Aspartate Amino Transf (AST/SGOT) 42 U/L Alanine Aminotransferase (ALT/SGPT) 68 U/L Alkaline Phosphatase 66 U/L Total Protein 6.0 gm/dl Albumin 3.8 gm/dl Globulin 2.2 gm/dl Albumin/Globulin Ratio 1.7 Test 04/25/16 06:34 Bedside Glucose 170 mg/dl (Elisa Maxwell, PHILLIP) Assessment and Plan 75 y/o female with a history of A. fib, pacemaker placement, chronic diastolic CHF, and hypothyroidism who presented to the ED with lower back pain radiating down her right lower extremity as well as numbness and tingling. The patient had just been discharged from the hospital on 04/23 for a GI bleed and pulmonary edema. Per family, the patient had been feeling well at discharge. The following day the patient started to complain of pain, and she had a loss of appetite. In the ED she was found to have a right iliopsoas hematoma measuring 6 x 8 x 12 cm. The patient has a history of being on Coumadin for the last 12 years due to her A. fib and has not had complications in the past. 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 Denies falls/trauma -Admitted to ICU -Coumadin DC'd. -Patient given 2 units of FFP and total of 5 mg Vitamin K. Last INR 1.6 -Regular vascular checks -Will continue to monitor Acute blood loss anemia secondary to hematoma--stable -Hemoglobin 10.6 upon arrival. Repeat Hgb 8.2 a few hours later -Patient given 2 units of packed red blood cells -Repeat hemoglobin 9.6 -Continue to monitor Hypotension--Improving -Patient received blood products as above. -Continue NSS at 100 cc/hr Leukocytosis--ongoing -WBC 14.66 upon arrival. Recently received steroids -Repeat WBC 21.86 on 04/25. Patient has been afebrile while inpatient -Continue to monitor for other signs of infection Acute kidney injury likely secondary to hypoperfusion/hypotension--baseline creatinine around 1.0 -Creatinine 1.3 upon arrival -Creatinine on 04/25 elevated to 1.8 -IVF as above, continue to monitor A-fib--patient has been tachycardic with heart rate in 90s. Pacemaker in place -Continue metoprolol succinate 50 mg PO qd -Coumadin held as above Chronic diastolic CHF--stable. Currently euvolemic -Continue metoprolol as above. -Hold Lasix for now due to hypotension Hypothyroidism -Continue Synthroid 75 g PO qd DVT prophylaxis -Hold chemical prophylaxis due to bleeding -EDSON robledo and SCDs Code Status -Level I, FULL RESUSCITATION STATUS (Elisa Maxwell ., PA-C) I agree with PA assessment and plan and have seen and examined pt myself Resting comfortably in bed Difficult to arouse States pain controlled Ext: Hematoma noted, not worsening in size S/P transfusion of FFP, coumadin on hold. c Continue to monitor H/H (Sam Tadeo, [email or web address].)
[2016-04-25 10:21] LABS: HEMATOCRIT 25.2 % (37-47)
[2016-04-25] MEDS ORDERED: SODIUM CHLORIDE 0.9% 250ML 250 ML IV ONE (11:15)
--- NOTE | 2016-04-25 11:57 | Critical Care Consultation ---
Critical Care Consultation Date of Consultation: Apr 25, 2016. Attending Physician: Last Johnston MD Reason for Consultation: Retroperitoneal bleeding with dropping Hgb History of Present Illness 75 y/o F with PMH of atrial fibrillation with pacemaker and on Coumadin, HTN , diastolic HF , restless leg syndrome, recently discharged from hospital after pneumonia and CHF exacerbation presented with lower back pain on the right side and along the right lower extremity. She had denied any h/o trauma or fall The pain was along her right lower extremity , about 8/10 and associated with numbness and tingling which she describes as a sciatica. She denied any changes in color of her toes or legs. she has been suing [facility] for about 12 years now . She was recently admitted for pneumonia and CHF exacerbation and GI bleed. EGD had revealed gastric and erosive gastritis and she was started on Protonix BID. she was restarted on Coumadin upon discharge and was being bridged with Lovenox. Lumbar spine CT and abdominal CT was done and she was found to have a retroperitoneal right iliopsoas hematoma measuring 6 x 8 x 12 cm. complains of pain along the RLE and flank about 8/10 and prefers to lay on back or right side. continues to have tingling along the right leg but denies any changes in color. denies any CP/SOB/palpitations. appetite has been poor since discharge Past Medical/Surgical History 1) Hypertension (2) Pacemaker (3) Restless leg syndrome 4) Chronic diastolic CHF 5) Chronic AF - pacer 6) HPL 7) Hypothyroid Social History Smoking Status: Former Smoker Drug Use: none Marital Status: Housing Status: lives alone Occupation Status: retired Allergies Coded Allergies: No Known Allergies (Unverified , 04/19/16) Home Medications Scheduled Atorvastatin (Lipitor), 10 MG PO DAILY Cholecalciferol (D 5000), 5,000 INTERUNIT PO DAILY Enoxaparin (Lovenox), 80 MG SQ Q12 Furosemide (Lasix), 20 MG PO DAILY Levothyroxine Sodium (Levothyroxine Sodium), 75 MCG PO DAILY Metoprolol Succ (Toprol Xl) (Toprol-Xl), 50 MG PO DAILY Pantoprazole (Pantoprazole Sodium), 40 MG PO BID Potassium Chloride (Micro-K Ext Rel), 20 MEQ PO DAILY Ropinirole (Requip), 1 MG PO DAILY Warfarin Sod (Jantoven), 2 MG PO 3XWK Warfarin Sod (Jantoven), 3 MG PO 4XWK Current Inpatient Medications Current Inpatient Medications Medications (Trade) Dose Ordered Sig/Angeles Route Start Time Stop Time Status Last Admin Dose Admin Ioversol (Optiray 320) 125 ml UD PRN IV 04/24/16 15:45 04/28/16 15:44 Atorvastatin Calcium (Lipitor Tab) 10 mg DAILY PO 04/25/16 09:00 05/25/16 08:59 04/25/16 09:44 10 MG Levothyroxine Sodium (Synthroid Tab) 75 mcg DAILYBB PO 04/25/16 06:00 05/25/16 06:59 04/25/16 06:30 75 MCG Metoprolol Succinate (Toprol Xl Tab) 50 mg DAILY PO 04/25/16 09:00 05/25/16 08:59 Future Hold Pantoprazole Sodium (Protonix Tab) 40 mg BID PO 04/24/16 21:00 05/24/16 20:59 04/25/16 09:44 40 MG Ropinirole HCl (Requip Tab) 1 mg DAILY PO 04/25/16 09:00 05/25/16 08:59 04/25/16 09:44 1 MG Cholecalciferol (Vitamin D Tab) 5,000 inter.unit DAILY PO 04/25/16 09:00 05/25/16 08:59 04/25/16 09:44 5,000 INTER.UNIT Acetaminophen (Tylenol Tab) 650 mg Q4H PRN PO 04/24/16 18:15 05/24/16 18:14 Al Hydrox/Mg Hydrox/Simethicone (Maalox Max Susp) 15 ml Q4H PRN PO 04/24/16 18:15 05/24/16 18:14 Magnesium Hydroxide (Milk Of Magnesia Susp) 30 ml Q12H PRN PO 04/24/16 18:15 05/24/16 18:14 Ondansetron HCl (Zofran Inj) 4 mg Q6H PRN IV 04/24/16 18:15 05/24/16 18:14 04/25/16 04:01 4 MG Polyethylene (Miralax Powder Packet) 17 gm DAILY PRN PO 04/24/16 18:15 05/24/16 18:14 Miscellaneous (Iv Fluids Completed) 1 ea PRN PRN N/A 04/24/16 21:45 04/24/17 21:44 Miscellaneous (Remove Lidoderm Patch) 1 ea DAILY@21 N/A 04/25/16 21:00 05/25/16 20:59 Lidocaine (Lidoderm Patch 5%) 1 patch DAILY TD 04/26/16 09:00 05/26/16 08:59 Morphine Sulfate (MoRPHine SULFATE INJ) 2 mg Q2H PRN IV 04/25/16 04:45 05/09/16 04:44 04/25/16 10:28 2 MG Lorazepam 1 mg 1 mg Q4H PRN IV 04/25/16 04:45 05/25/16 04:44 Sodium Chloride (Nss 1000ml) 1,000 ml @ 100 mls/hr Q10H IV 04/25/16 09:00 05/25/16 08:59 04/25/16 09:45 100 MLS/HR Enteral Nutritional Formula (Boost) 1 can TID PO 04/25/16 14:00 05/25/16 13:59 Metoprolol Tartrate (Lopressor Iv) 2.5 mg Q6 IV. 04/25/16 12:00 05/25/16 11:59 Review of Systems Constitutional: No chills, No fever Eyes: No worsening of vision ENT: No hearing loss Respiratory: No cough, No dyspnea on exertion, No shortness of breath Cardiovascular: No chest pain Abdomen: + pain (Right flank area), No nausea, No vomiting Musculoskeletal: + problem reported (RLE pain and tingling) Neurologic: No memory loss Endocrine: No fatigue Physical Exam Date Time Temp Pulse Resp B/P Pulse Ox O2 Delivery O2 Flow Rate FiO2 04/25/16 09:00 93 16 113/77 96 Room Air 04/25/16 08:01 36.7 106 21 110/63 96 Room Air 04/25/16 08:00 Nasal Cannula 04/25/16 05:00 36.8 89 27 99/65 95 04/25/16 04:15 100 31 98 04/25/16 04:00 36.6 89 29 122/74 96 04/25/16 04:00 Room Air 04/25/16 03:45 90 27 122/84 96 04/25/16 03:30 93 18 116/76 98 04/25/16 03:20 98 24 108/70 97 04/25/16 03:15 36.8 86 38 104/67 98 04/25/16 03:15 86 20 104/67 98 04/25/16 03:00 92 22 104/61 98 04/25/16 02:58 92 31 105/57 99 04/25/16 02:45 36.7 96 34 92/53 04/25/16 02:45 92 34 92/53 98 04/25/16 02:30 95 29 110/60 98 04/25/16 02:15 85 24 114/76 95 04/25/16 02:00 90 26 126/67 95 04/25/16 01:50 86 25 93/66 95 Room Air 04/25/16 01:45 97 36 92/59 97 Room Air 04/25/16 01:30 105 21 95/59 95 Room Air 04/25/16 01:15 99 26 92/55 96 Room Air 04/25/16 01:00 95 19 96/61 95 Room Air 04/25/16 00:55 36.8 91 29 104/61 96 04/25/16 00:45 86 26 104/61 95 Room Air 04/25/16 00:30 88 24 109/63 95 Room Air 04/25/16 00:15 87 24 107/69 94 Room Air 04/25/16 00:06 87 17 114/68 97 Room Air 04/25/16 00:01 Room Air 04/25/16 00:00 93 36 95/65 97 Room Air 04/24/16 23:56 93 27 108/60 95 Room Air 04/24/16 23:50 93 33 100/72 95 Room Air 04/24/16 23:45 37.3 92 28 94/65 96 04/24/16 23:45 92 28 94/65 96 Room Air 04/24/16 23:40 87 27 87/54 97 Room Air 04/24/16 23:35 88 26 96/63 96 Room Air 04/24/16 23:30 87 19 96/56 97 Room Air 04/24/16 23:25 84 23 101/64 96 Room Air 04/24/16 23:20 89 36 88/68 98 Room Air 04/24/16 23:15 88 31 87/64 96 Room Air 04/24/16 23:15 88 31 87/64 96 04/24/16 23:10 94 24 110/60 96 Room Air 04/24/16 23:05 88 30 83/52 98 Room Air 04/24/16 23:00 88 19 96/61 97 Room Air 04/24/16 22:55 84 28 95/58 98 Room Air 04/24/16 22:50 84 27 89/59 98 Room Air 04/24/16 22:45 86 26 95/59 96 Room Air 04/24/16 22:45 36.6 86 26 95/59 96 04/24/16 22:40 78 42 85/58 95 Room Air 04/24/16 22:35 93 25 93/59 97 Room Air 04/24/16 22:35 36.6 93 25 93/59 97 04/24/16 22:30 78 21 87/55 96 Room Air 04/24/16 22:25 80 26 83/61 Room Air 04/24/16 22:20 84 25 83/60 Room Air 04/24/16 22:20 36.5 84 25 83/60 04/24/16 22:15 85 29 95/56 96 Room Air 04/24/16 21:55 36.5 78 20 97/54 96 0.0 04/24/16 21:41 36.7 88 20 84/54 96 04/24/16 21:19 79 20 107/66 93 Room Air 04/24/16 20:30 83 20 109/70 95 04/24/16 20:13 91 24 76/52 97 Room Air 04/24/16 20:00 85 20 90/56 96 04/24/16 19:49 36.4 04/24/16 19:49 99 20 98/63 96 04/24/16 19:32 36.6 88 20 92/64 95 04/24/16 19:22 87 20 95/66 96 Room Air 04/24/16 19:00 86 20 96 04/24/16 18:45 79 20 95 04/24/16 18:33 100 18 102/64 94 Room Air 04/24/16 18:15 96 Room Air 04/24/16 16:29 70 18 127/67 96 Room Air 04/24/16 13:41 36.5 85 16 133/77 96 Room Air General Appearance: in pain Head: normocephalic Eyes: PERRLA Neck: normal range of motion, no tenderness Respiratory: no respiratory distress, other (dimibnished breath sounds) Cardiovasular: other (tachycardia) Abdomen: normal bowel sounds, RLQ TTP, other (tenderness in right flak with brusiing along RLQ) Back: right CVA tenderness Upper Extremities: no edema Lower Extremities: no edema Pulses: dorsalis pedis (R), dorsalis pedis (L) Neuro: oriented x 3, lethargic Laboratory Results Last 24 Hours Test 04/24/16 15:17 04/24/16 15:23 04/24/16 20:35 04/24/16 20:36 Bedside Prothrombin Time INR 1.8 Bedside Hemoglobin 13.3 g/dl 10.2 g/dl Bedside Hematocrit 39 % 30 % Bedside Sodium 133 mEq/L 134 mEq/L Bedside Potassium 3.8 mEq/L 3.7 mEq/L Bedside Chloride 94 mEq/L 94 mEq/L Bedside Total CO2 25 mEq/l 25 mEq/l Anion Gap 18.0 mmol/L 11.0 mmol/L 20.0 mmol/L Bedside Blood Urea Nitrogen 24 mg/dl 22 mg/dl Bedside Creatinine 1.2 mg/dl 1.2 mg/dl Bedside Glucose (other) 130 mg/dl 140 mg/dl Bedside Ionized Calcium ([place]) 1.01 mmol/l 0.94 mmol/l White Blood Count 14.66 K/uL Red Blood Count 3.33 M/uL Hemoglobin 10.6 g/dL Hematocrit 31.4 % Mean Corpuscular Volume 94.3 fL Mean Corpuscular Hemoglobin 31.8 pg Mean Corpuscular Hemoglobin Concent 33.8 g/dl Platelet Count 275 K/uL Mean Platelet Volume 10.1 fL Neutrophils (%) (Auto) 75.9 % Lymphocytes (%) (Auto) 13.2 % Monocytes (%) (Auto) 9.5 % Eosinophils (%) (Auto) 0.3 % Basophils (%) (Auto) 0.1 % Neutrophils # (Auto) 11.13 K/uL Lymphocytes # (Auto) 1.93 K/uL Monocytes # (Auto) 1.40 K/uL Eosinophils # (Auto) 0.05 K/uL Basophils # (Auto) 0.01 K/uL RDW Standard Deviation 46.2 fL RDW Coefficient of Variation 13.4 % Immature Granulocyte % (Auto) 1.0 % Immature Granulocyte # (Auto) 0.14 K/uL Prothrombin Time 17.8 SECONDS Prothromb Time International Ratio 1.6 Activated Partial Thromboplast Time 35.3 SECONDS Partial Thromboplastin Ratio 1.4 Sodium Level 135 mmol/L Potassium Level 3.7 mmol/L Chloride Level 99 mmol/L Carbon Dioxide Level 25 mmol/L Blood Urea Nitrogen 22 mg/dl Creatinine 1.30 mg/dl Est Creatinine Clear Calc Drug Dose 40.4 ml/min Estimated GFR () 45.8 Estimated GFR (Non- 39.5 BUN/Creatinine Ratio 17.2 Random Glucose 135 mg/dl Calcium Level 7.9 mg/dl Magnesium Level 1.9 mg/dl Total Bilirubin 2.2 mg/dl Direct Bilirubin 0.9 mg/dl Aspartate Amino Transf (AST/SGOT) 42 U/L Alanine Aminotransferase (ALT/SGPT) 72 U/L Alkaline Phosphatase 91 U/L Total Creatine Kinase 263 U/L Creatine Kinase MB 1.6 ng/ml Creatine Kinase MB Ratio 0.6 Troponin I 0.016 ng/ml Total Protein 5.7 gm/dl Albumin 2.7 gm/dl Globulin 3.0 gm/dl Albumin/Globulin Ratio 0.9 Test 04/24/16 22:36 04/24/16 23:27 04/25/16 01:55 04/25/16 05:02 Bedside Glucose 152 mg/dl Urine Color DK YELLOW Urine Appearance CLOUDY Urine pH 6.0 Urine Specific [place] > 1.045 Urine Protein NEG Urine Glucose (UA) NEG Urine Ketones NEG Urine Occult Blood TRACE Urine Nitrite NEG Urine Bilirubin NEG Urine Urobilinogen NEG Urine Leukocyte Esterase NEG Urine WBC (Auto) 1-5 /hpf Urine RBC (Auto) 10-30 /hpf Urine Hyaline Casts (Auto) 1-5 /lpf Urine Epithelial Cells (Auto) >30 /lpf Urine Bacteria (Auto) NEG Hemoglobin 8.2 g/dL 9.6 g/dL Heparin-PF4 Antibody Screen NEG White Blood Count 21.86 K/uL Red Blood Count 3.13 M/uL Hematocrit 28.1 % Mean Corpuscular Volume 89.8 fL Mean Corpuscular Hemoglobin 30.7 pg Mean Corpuscular Hemoglobin Concent 34.2 g/dl RDW Standard Deviation 47.8 fL RDW Coefficient of Variation 14.5 % Platelet Count 197 K/uL Mean Platelet Volume 10.1 fL Sodium Level 138 mmol/L Potassium Level 4.3 mmol/L Chloride Level 100 mmol/L Carbon Dioxide Level 26 mmol/L Anion Gap 12.0 mmol/L Blood Urea Nitrogen 29 mg/dl Creatinine 1.80 mg/dl Est Creatinine Clear Calc Drug Dose 29.2 ml/min Estimated GFR () 30.9 Estimated GFR (Non- 26.7 BUN/Creatinine Ratio 16.3 Random Glucose 157 mg/dl Calcium Level 7.9 mg/dl Magnesium Level 2.2 mg/dl Total Bilirubin 3.9 mg/dl Aspartate Amino Transf (AST/SGOT) 42 U/L Alanine Aminotransferase (ALT/SGPT) 68 U/L Alkaline Phosphatase 66 U/L Total Protein 6.0 gm/dl Albumin 3.8 gm/dl Globulin 2.2 gm/dl Albumin/Globulin Ratio 1.7 Test 04/25/16 06:34 04/25/16 10:13 04/25/16 11:19 Bedside Glucose 170 mg/dl 153 mg/dl Hemoglobin 8.9 g/dL Hematocrit 25.2 % Assessment & Plan 75 y/o F with PMH of a fib with pacemaker and on Coumadin, HTN , diastolic HF , restless leg syndrome, recently discharged from hospital after pneumonia and CHF exacerbation presented with lower back pain along RLE and found to have a retroperitoneal right iliopsoas hematoma measuring 6 x 8 x 12 cm. Recent admission for GI bleed and had restarted Coumadin about 2 days ago and still receiving Lovenox to bridge . Heme: - Right iliopsoas hematoma- spontaneous with no h/o trauma - s/p 2 units of FFP and 10 mg Vitamin K. - INR today at 1.6 , on admission 1.8 - Hold coumadin Acute blood loss anemia - Hgb at 9.6 s/p 2 units PRBC , Hgb on arrival 10.6 but dropped to 8.2 - H&H q6h Leucocytosis: likely stress related Neuro: pain rated as 8/10 along right flank to RLE - Morphine 1 mg q2h as needed Restless leg syndrome: - Continue ropinirole CVS: Hypotension--Improving 110s/80s - s/p 2 units pRBCs and 6 albumin - NSS 250 ml bolus X2 - Continue NSS at 100 mls/hr Atrial fibrillation with a pacemaker - Rate control 2.5 mg Lopressor q6h . Hold Metoprolol XL - Coumadin on hold Diastolic CHF -stable - lasix on hold Hyperlipidemia: - Continue Lipitor Renal: IVONNE : - likely sec to hypoperfusion -Creatinine 1.8 currently, 1.3 upon arrival - Hold lasix - IVF Electrolytes: Hypokalemia: 3.7 on admission Resolved GI/FEN: Recent GI bleed: - Continue Protonix 40 mg BID Poor appetite - Boost TID Endocrine: Hypothyroidism -Continue Synthroid 75 g PO qd DVT prophylaxis - SCDs, avoid chemical anticoagulation Full code Disposition: Monitor H&H Resident Physician Supervision Note: I interviewed and examined the patient. Discussed with Dr. Brown and agree with findings and plan as documented in the note. Any exceptions or clarifications are listed here: The history, exam, assessment and plan are well documented above. The biggest complaint the patient had this morning was R sided back pain radiating down her leg at times. She denied SOB, CP. She is getting h/h's every 6 hours and INR was improved after FFP and Vitamin K. U/O has been low today and Cr is rising - likely secondary to hypoperfusion associated with hypotension and hypovolemia secondary to bleeding. She has had albumin and 3 boluses of 250ml NS today without much change in U/O. PRP and H/H pending this afternoon. Continue judicious volume resuscitation and watch for hypoxemia related to pulmonary edema. Will likely need to give lasix at some point. Hold long acting beta sherry and continue IV lopressor. Titrate up as bp allows. Consider percocet for pain and also begin bowel regimen secondary to narcotic use. Documented By: Milly Hubbard
[2016-04-25] MEDS ORDERED: SODIUM CHLORIDE 0.9% 250ML 250 ML IV SCH ×2 (12:00→14:30)
[2016-04-25] MEDS: METOPROLOL TARTRATE 1 MG/ML VIAL IV. SCH ×2 (12:12→18:00)
[2016-04-25] MEDS ORDERED: SODIUM CHLORIDE 0.9% 500ML 250 ML IV SCH (13:00)
[2016-04-25] MEDS: BOOST VANILLA PO SCH ×4 (13:35→21:00)
[2016-04-25] MEDS ORDERED: ALBUMIN HUMAN 25% 12.5 GM/50 ML VIAL IV ONE (16:15)
[2016-04-25 16:21] LABS: INR 1.1 (0.9-1.1)
[2016-04-25 16:32] LABS: CALCIUM 7.7 mg/dl (8.5-10.1); CREATININE 2.6 mg/dl (0.60-1.20); POTASSIUM 4.5 mmol/L (3.5-5.1)
[2016-04-25 17:02] LABS: HEMATOCRIT 20.6 % (37-47)
[2016-04-25] MEDS: ACETAMINOPHEN IV 650 MG in EMPTY BAG 0 ML IV SCH (17:42)
[2016-04-25] MEDS ORDERED: FUROSEMIDE INJ 60 MG in SYRINGE 0 ML IV ONE (20:00)
[2016-04-25 21:36] LABS: BUN/CREATININE RATIO 14.4 (10-20); CALCIUM 6.8 mg/dl (8.5-10.1); CREATININE 2.4 mg/dl (0.60-1.20); POTASSIUM 5.3 mmol/L (3.5-5.1)
[2016-04-25 21:37] LABS: HEMATOCRIT 25.5 % (37-47)
[2016-04-25] MEDS ORDERED: CALCIUM CHLORIDE 10% 1,000 MG in SODIUM CHLORIDE 0.9% 50ML 50 ML IV SCH (22:30)
[2016-04-26] VITALS (37 sets, daily range): BP systolic 84–132; BP diastolic 38–74; PULSE 82–116; TEMP 36.4–36.9; O2SAT 79–96
--- NOTE | 2016-04-26 00:02 | EMERGENCY ROOM VISIT NOTE ---
History Report prepared by Ayan: Guadalupe Larson Under the Supervision of: Dr. Silver Montesinos D.O. First contact with patient: 13:45 Chief Complaint: HIP PAIN Stated Complaint: HIP PSIN History of Present Illness The patient is a 75 year old female who presents to the Emergency Room with complaints of worsening right hip pain since yesterday. She denies any recent injury or trauma. She has not fallen. The patient was admitted to the hospital twice last week for CHF. She was discharged home yesterday. Upon arriving home, her pain began. The patient rates her current pain as an 8/10 in severity. She has been taking Tylenol to manage her pain. The patient notes right leg numbness. She states that her pain radiates from her right hip down to her right knee. She has some pain behind her right knee, but denies any calf pain or lower leg pain. The patient reports a personal history of sciatica and states that this feels similar. She is currently taking Coumadin. She was brought to the ED by ambulance. Her daughter notes that last week the patient's legs were very swollen and have improved since she lost 8 pounds of fluid in the hospital. Source of History: patient, family Onset: yesterday Position: other (right hip) Symptom Intensity: 8/10 Quality: other (radiates) Timing: worsening Modifying Factors (Relieving): tylenol Associated Symptoms: + numbness (of right leg) Review of Systems See HPI for pertinent positives & negatives. A total of 10 systems reviewed and were otherwise negative. Past Medical & Surgical Medical Problems: (1) GI bleed (2) Hypertension (3) Pacemaker (4) Pulmonary edema (5) Restless leg syndrome (6) Retroperitoneal bleed Family History Non-pertinent due to advanced age. Social History Smoking Status: Current Some Day Smoker Alcohol Use: occasionally Drug Use: none Marital Status: Housing Status: lives alone Occupation Status: retired Current/Historical Medications Scheduled Atorvastatin (Lipitor), 10 MG PO DAILY Cholecalciferol (D 5000), 5,000 INTERUNIT PO DAILY Enoxaparin (Lovenox), 80 MG SQ Q12 Furosemide (Lasix), 20 MG PO DAILY Levothyroxine Sodium (Levothyroxine Sodium), 75 MCG PO DAILY Metoprolol Succ (Toprol Xl) (Toprol-Xl), 50 MG PO DAILY Pantoprazole (Pantoprazole Sodium), 40 MG PO BID Potassium Chloride (Micro-K Ext Rel), 20 MEQ PO DAILY Ropinirole (Requip), 1 MG PO DAILY Warfarin Sod (Jantoven), 2 MG PO 3XWK Warfarin Sod (Jantoven), 3 MG PO 4XWK Allergies Coded Allergies: No Known Allergies (Unverified , 04/19/16) Physical Exam Vital Signs Date Time Temp Pulse Resp B/P Pulse Ox O2 Delivery O2 Flow Rate FiO2 04/24/16 21:19 79 20 107/66 93 Room Air 04/24/16 20:30 83 20 109/70 95 04/24/16 20:13 91 24 76/52 97 Room Air 04/24/16 20:00 85 20 90/56 96 04/24/16 19:49 36.4 04/24/16 19:49 99 20 98/63 96 04/24/16 19:32 36.6 88 20 92/64 95 04/24/16 19:22 87 20 95/66 96 Room Air 04/24/16 19:00 86 20 96 04/24/16 18:45 79 20 95 04/24/16 18:33 100 18 102/64 94 Room Air 04/24/16 18:15 96 Room Air 04/24/16 16:29 70 18 127/67 96 Room Air 04/24/16 13:41 36.5 85 16 133/77 96 Room Air Physical Exam CONSTITUTIONAL/VITAL SIGNS: Reviewed / noted above. GENERAL: Non-toxic in appearance. INTEGUMENTARY: Warm, dry, and Hypericum. HEAD: Normocephalic. EYES: without scleral icterus or trauma. ENT/OROPHARYNX: clear and moist. LYMPHADENOPATHY/NECK: Is supple without lymphadenopathy or meningismus. RESPIRATORY: Lungs clear and equal. CARDIOVASCULAR: Regular rate and rhythm. GI/ABDOMEN: Soft and nontender. No organomegaly or pulsatile mass. No rebound or guarding. Normal bowel sounds. EXTREMITIES: Warm and well perfused. BACK: She has some tenderness to palpation over the right buttock area, no rashes. NEUROLOGICAL: Intact without focal deficits. PSYCHIATRIC: normal affect. MUSCULOSKELETAL: Normally developed with good muscle tone. Medical Decision & Procedures ER Provider Diagnostic Interpretation: Radiology results as stated below per my review and radiologist interpretation: LUMBAR SPINE CT CT DOSE: 937.40 mGy.cm HISTORY: sciatica like pain rt side TECHNIQUE: Multiaxial CT images of the lumbar spine were performed and reformatted in the sagittal and coronal plane without the use of contrast. COMPARISON: None. FINDINGS: Small focal area of fusion within the right sacroiliac joint. The sacrum is intact. There is a partially visualized right retroperitoneal/iliopsoas hematoma. Moderate facet degenerative changes at L4-L5 and L5-S1. Mild dextroscoliosis of the lumbar spine which could be positional. No acute fracture or subluxation within the lumbar spine. Disc spaces are preserved for age. Small broad-based posterior disc bulge with ligamentum and facet hypertrophy at L4-L5 resulting in moderate central canal narrowing. Mild central canal narrowing at L3-L4. Mild bilateral neural foraminal narrowing at L3-L4 and L4-5. Moderate bilateral neural foraminal narrowing L5-S1 due to the disc bulge and facet hypertrophy. IMPRESSION: 1. Partially visualized right retroperitoneal/iliopsoas hematoma. Recommend dedicated pelvis CT for further evaluation. 2. Degenerative changes within the lower lumbar spine as described above. 3. No acute fracture or subluxation within the lumbar spine. Electronically signed by: Nolan Strange M.D. 04/24/2016 2:56 PM Dictated Date/Time: 04/24/2016 2:49 PM AP PELVIS AND RIGHT HIP 3 VIEWS CLINICAL HISTORY: Right hip and buttocks pain COMPARISON STUDY: No previous studies for comparison. FINDINGS: No acute fractures are visualized. There are no erosive or destructive changes. The joint space is relatively well-preserved for age. IMPRESSION: No fractures, dislocations, or destructive lesions are visualized Electronically signed by: Aman De Jesus M.D. 04/24/2016 2:52 PM Dictated Date/Time: 04/24/2016 2:51 PM ABDOMEN AND PELVIS CT WITH IV CONTRAST CT DOSE: 551.45 mGy.cm HISTORY: Pain eval psoas hematoma TECHNIQUE: Multiaxial CT images of the abdomen and pelvis were performed following the use of intravenous contrast. COMPARISON STUDY: None. FINDINGS: Lung bases are considered clear. There is dilatation of the biliary ductal system. Etiology is unclear. Pancreas and spleen are unremarkable. Kidneys show component of cortical atrophy. There are findings of a right psoas and parasellar as right flank hematoma. This extends over geographic region of 6 x 8 x 12 cm. Bowel pattern is considered nonobstructive. There are several injection sites in the subcutaneous fat anterior abdominal wall. There is mild extension to the right inguinal region. Bladder is midline. There is no free fluid within the pelvic cul-de-sac. Findings of mild chronic sigmoid diverticulosis. IMPRESSION: 1. Right lateral pelvic sidewall and lower right iliopsoas hematoma measuring 6 x 8 x 12 cm. 2. Nonspecific dilatation of the biliary ductal system. 3. Otherwise negative study Electronically signed by: Gustavo Lamas M.D. 04/24/2016 4:08 PM Dictated Date/Time: 04/24/2016 4:03 PM Laboratory Results Test 04/24/16 15:17 04/24/16 20:35 04/24/16 20:36 Bedside Prothrombin Time INR 1.8 (0.9-1.1) Immature Granulocyte % (Auto) 1.0 % White Blood Count 14.66 K/uL (4.8-10.8) Red Blood Count 3.33 M/uL (4.2-5.4) Hemoglobin 10.6 g/dL (12.0-16.0) Hematocrit 31.4 % (37-47) Mean Corpuscular Volume 94.3 fL (80-100) Mean Corpuscular Hemoglobin 31.8 pg (25-34) Mean Corpuscular Hemoglobin Concent 33.8 g/dl (32-36) Platelet Count 275 K/uL (130-400) Mean Platelet Volume 10.1 fL (7.4-10.4) Neutrophils (%) (Auto) 75.9 % Lymphocytes (%) (Auto) 13.2 % Monocytes (%) (Auto) 9.5 % Eosinophils (%) (Auto) 0.3 % Basophils (%) (Auto) 0.1 % Neutrophils # (Auto) 11.13 K/uL (1.4-6.5) Lymphocytes # (Auto) 1.93 K/uL (1.2-3.4) Monocytes # (Auto) 1.40 K/uL (0.11-0.59) Eosinophils # (Auto) 0.05 K/uL (0-0.5) Basophils # (Auto) 0.01 K/uL (0-0.2) Immature Granulocyte # (Auto) 0.14 K/uL (0.00-0.02) Activated Partial Thromboplast Time 35.3 SECONDS (21.0-31.0) Partial Thromboplastin Ratio 1.4 Direct Bilirubin 0.9 mg/dl (0-0.2) Total Creatine Kinase 263 U/L (26-192) Creatine Kinase MB 1.6 ng/ml (0.5-3.6) Creatine Kinase MB Ratio 0.6 (0-3.0) Troponin I 0.016 ng/ml (0-0.045) Bedside Hemoglobin 10.2 g/dl (12.0-16.0) Bedside Hematocrit 30 % (37-47) Bedside Sodium 134 mEq/L (135-144) Bedside Potassium 3.7 mEq/L (3.3-5.0) Bedside Chloride 94 mEq/L (101-112) Bedside Total CO2 25 mEq/l (24-31) Bedside Blood Urea Nitrogen 22 mg/dl (7-18) Bedside Creatinine 1.2 mg/dl (0.6-1.3) Bedside Glucose (other) 140 mg/dl (70-99) Bedside Ionized Calcium (Emerald) 0.94 mmol/l (1.12-1.32) Laboratory results as stated above per my review. Medications Administered Medications (Trade) Dose Ordered Sig/Angeles Route Start Time Stop Time Status Last Admin Dose Admin Oxycodone HCl 5 mg 5 mg NOW STAT PO 04/24/16 13:50 04/24/16 13:53 DC 04/24/16 14:08 5 MG Phytonadione/ Sodium Chloride (Aqua-Mephyton Inj/Nss 50ml) 50.5 ml @ 101 mls/hr NOW STAT IV 04/24/16 18:07 04/24/16 18:36 DC 04/24/16 18:32 101 MLS/HR Pantoprazole Sodium (Protonix Tab) 40 mg BID PO 04/24/16 21:00 05/24/16 20:59 04/25/16 21:07 40 MG Ondansetron HCl 4 mg 4 mg Q6H PRN IV 04/24/16 18:15 05/24/16 18:14 04/25/16 04:01 4 MG Sodium Chloride (Nss 1000ml) 1,000 ml @ 999 mls/hr Q1H1M IV 04/24/16 20:30 04/24/16 22:43 DC 04/24/16 20:30 999 MLS/HR ED Course 1345: Previous medical records were reviewed. The patient was evaluated in room B6. A complete history and physical examination was performed. 1350: Oxycodone HCl 5 mg PO 1455: I updated the patient and her daughter. She will be getting a CT scan of the pelvis. 164: I reassessed the patient at this time. She is feeling better and resting comfortably. I discussed the results and treatment plan with the patient and her daughter. I answered all pertaining questions that they had. They expressed understanding and verbalized agreement. 164: I spoke with Dr. Johnston. We discussed the patients results and treatment plan. The patient will be evaluated by the [facility] for further management. Medical Decision Differential considered includes cauda equina syndrome, conus medullaris, spinal cord compression syndrome, peripheral nerve compression, fractures or subluxations, intra-abdominal pathology such as abdominal aortic aneurysm or kidney stones, muscle strain, transverse myelitis, spinal cord injury. This is a 75-year-old female who presents to the ED with a chief complaint of right-sided buttock/hip pain that radiates down the right leg behind the knee. The patient was recently admitted twice to the hospital for a pneumonia than congestive heart failure. She is on blood thinners for history of atrial fibrillation and pacemaker. The patient states that her pain is increased with certain movements and with palpation the right butt cheek on exam. Her vital signs are normal. She has good distal pulses. She is neurovascularly intact with good motor and sensory function distal to the knee. There is no palpable tenderness. She has no rashes. There is no obvious infection. Consults Time Called: 1641 Consulting Physician: Dr. Johnston Returned Call: [address] Johnston. We discussed the patients results and treatment plan. The patient will be evaluated by the [facility] for further management. Impression Primary Impression: Hematoma of right iliopsoas muscle Additional Impression: Elevated INR Scribe Attestation The scribe's documentation has been prepared under my direction and personally reviewed by me in its entirety. I confirm that the note above accurately reflects all work, treatment, procedures, and medical decision making performed by me. Departure Information Dispostion Being Evaluated By Hospitalist Lg Romo MD (PCP) Patient Instructions [facility] Problem Qualifiers Primary Impression: Hematoma of right iliopsoas muscle Encounter type: initial encounter Qualified Codes: S70.11XA - Contusion of right thigh, initial encounter
[2016-04-26] MEDS: ACETAMINOPHEN IV 650 MG in EMPTY BAG 0 ML IV SCH ×2 (00:04→05:53)
[2016-04-26 00:34] LABS: HEMATOCRIT 25.4 % (37-47)
[2016-04-26] MEDS: SODIUM CHLORIDE 0.9% 1000ML 1,000 ML IV SCH ×2 (05:52→16:03)
[2016-04-26] MEDS: LEVOTHYROXINE 75 MCG TAB PO SCH (05:52)
[2016-04-26] MEDS: METOPROLOL TARTRATE 1 MG/ML VIAL IV. SCH ×4 (05:53→18:00)
[2016-04-26 06:03] LABS: INR 1.1 (0.9-1.1); PROTHROMBIN TIME (PATIENT) 11.5 SECONDS (9.0-12.0)
[2016-04-26 06:09] LABS: HEMATOCRIT 23.6 % (37-47); MEAN CELL VOLUME 81.7 fL (80-100); MEAN CORPUSCULAR HEMOGLOBIN 29.1 pg (25-34); MEAN CORPUSCULAR HGB CONC 35.6 g/dl (32-36); MEAN PLATELET VOLUME 10.4 fL (7.4-10.4); PLATELET COUNT 160 K/uL (130-400); RED BLOOD COUNT 2.89 M/uL (4.2-5.4); WHITE BLOOD COUNT 38.01 K/uL (4.8-10.8)
[2016-04-26] MEDS: MoRPHine SULFATE 2 MG/ML CARP IV PRN (06:09)
[2016-04-26 06:29] LABS: CALCIUM 8.3 mg/dl (8.5-10.1); CREATININE 2.6 mg/dl (0.60-1.20); POTASSIUM 4.6 mmol/L (3.5-5.1)
[2016-04-26] MEDS ORDERED: PIPERACILL/TAZOBAC CONSULT ACTIVE PRN ×2 (08:15→12:45)
[2016-04-26] MEDS: BOOST VANILLA PO SCH ×6 (08:35→21:00)
[2016-04-26] MEDS: ATORVASTATIN 10 MG TAB PO SCH (08:36)
[2016-04-26] MEDS: PANTOprazole SOD 40 MG TAB PO SCH ×2 (08:37→22:04)
[2016-04-26] MEDS: CHOLECALCIFEROL 1000 INTER.UNIT TAB PO SCH (08:37)
[2016-04-26] MEDS: ROPINIROLE HCL 1 MG TAB PO SCH (08:37)
[2016-04-26] MEDS ORDERED: PIPERACILL/TAZOBAC IV 3.375 GM in DEXTROSE 5% 100ML 100 ML IV SCH (09:00)
[2016-04-26] MEDS: LIDODERM (LIDOCAINE) PATCH 5% TD SCH (09:00)
[2016-04-26] MEDS ORDERED: OXYCODONE/ACETAMINOPHEN 5-325 TAB PO PRN (09:00)
--- NOTE | 2016-04-26 09:26 | DIAGNOSTIC IMAGING REPORT ---
SINGLE VIEW CHEST CLINICAL HISTORY: Pneumonia FINDINGS: An AP, portable, semierect chest radiograph is compared to chest x-ray and chest CT dated 04/19/2016. The examination is degraded by portable technique and patient rotation. A 2-lead cardiac pacemaker is unchanged in position. The heart is enlarged and there is atherosclerotic calcification of the thoracic aorta. The pulmonary vasculature is noncongested. There is chronic elevation of the right hemidiaphragm and chronic interstitial thickening. There is a small right pleural effusion with bibasilar atelectasis. No pneumothorax is seen. The skeletal structures are osteopenic. Degenerative change and scoliosis are noted throughout the thoracic spine. IMPRESSION: 1. Cardiomegaly and cardiac pacemaker. There is no radiographic evidence of congestive failure. 2. Small right pleural effusion with bibasilar atelectasis. Electronically signed by: Troy Platt M.D. 04/26/2016 9:25 AM Dictated Date/Time: 04/26/2016 9:23 AM
--- NOTE | 2016-04-26 09:58 | Critical Care Progress Note ---
Critical Care Progress Note Date of Service Apr 26, 2016. ICU Day ICU Day Number: [address] Hubbard Subjective 75 y/o F with PMH of a fib with pacemaker and on Coumadin, HTN , diastolic HF , restless leg syndrome, recently discharged from hospital after pneumonia and CHF exacerbation presented with lower back pain along RLE and found to have a retroperitoneal right iliopsoas hematoma measuring 6 x 8 x 12 cm. Continues to be in pain. c/o 8/10 Right flank pain radiating along RLE. feels like a "nerve pinch/sciatica" pain is worse on moving and she appears to be lying on her back and minimizing any movement. also has numbness in the right thigh area. Received about a litre of fluids yesterday and 2 units of blood - denies any SOB , CP, orthopnea or PND. hasnt had a BM since admission Objective GENERAL: Patient is in no acute distress. HEENT: normocephalic atraumatic, mucous membranes moist NECK: No stridor, no adenopathy, no meningismus, trachea is midline. LUNGS: left sided crackles at the bases, diminished HEART: irregularly irregular ABDOMEN: Soft, RLQ tenderness , tenderness in the right flank and CVA. bruising RLQ ( from Lovenox injections prior to admission) EXTREMITIES: No cyanosis or edema. sensation intact in both Lower extremities NEUROLOGIC: Oriented x 3 Assessment & Plan 75 y/o F with PMH of a fib with pacemaker and on Coumadin, HTN , diastolic HF , restless leg syndrome, recently discharged from hospital after pneumonia and CHF exacerbation presented with lower back pain along RLE and found to have a retroperitoneal right iliopsoas hematoma measuring 6 x 8 x 12 cm. Received 2 units of PRBCs yesterday. hgb at 8.4 today. currently transfusing 1 unit Neuro: Pain rated as 8/10 along right flank to RLE - IV Tylenol dc, 5-325 Percocet every 4 hours for pain control - Morphine 1 mg q2h as needed Restless leg syndrome: - Continue ropinirole Heme: - Right iliopsoas hematoma- spontaneous with no h/o trauma - s/p 2 units of FFP and 10 mg Vitamin K, 4 units total PRBCs transfused. currently transfusing 1 unit - INR today at 1.1 , on admission 1.8 - Hold coumadin Acute blood loss anemia - Hgb at 8.4, total 4 units pRBCS transfused. currently 1 unit transfusing - H&H q6h Leucocytosis: WBC spike to 38 K from 21K yesterday but patient has been afebrile - CXR: Cardiomegaly and cardiac pacemaker. There is no radiographic evidence of congestive failure. Small right pleural effusion with bibasilar atelectasis. - UA pending - Lipase, liver enzymes WNL - CT abdomen/pelvis non contrast ordered CVS: Hypotension--Improving 110s/80s - s/p 4 units pRBCs and 6 albumin - Continue NSS at 100 mls/hr Atrial fibrillation with a pacemaker - Rate control 2.5 mg Lopressor q6h . Hold Metoprolol XL - Coumadin on hold Diastolic CHF -stable - Lasix on hold Hyperlipidemia: - Continue Lipitor Renal: IVONNE : - Creatinine at 2.6, on admission 1.3 - received 60 mg of Lasix yesterday , 40 mg lasix to be given after transfusion - IVF Electrolytes: Hypokalemia: 3.7 on admission, currently at 4.6 Resolved GI/FEN: Recent GI bleed: - Continue Protonix 40 mg BID Poor appetite - Boost TID Constipation: bowel regimen ordered Endocrine: Hypothyroidism -Continue Synthroid 75 g PO qd DVT prophylaxis - SCDs, avoid chemical anticoagulation Full code Disposition: Monitor H&H Resident Physician Supervision Note: I interviewed and examined the patient. Discussed with Dr. Brown and agree with findings and plan as documented in the note. Any exceptions or clarifications are listed here: The patient's care was discussed in detail on multidisciplinary rounds today. I have also reviewed the VS, labs, notes, medications, as well as the CXR and CT from today. The hematoma is larger than 2 days ago which is not unexpected given she has now required 5 units of PRBC's. Nothing to suggest infection on CT other than atelectesis vs pneumonia. She is a bit more comfortable today but still feels lousy. Percocet started. BP is better - may be able to increase her b sherry later today. I'm hoping the bleeding has stopped and discussed the possibility of transfer to tertiary care center if it transfusion requirements continue. She has IVONNE and has had more U/O with lasix last night and today. Cr has not plateaued yet but K+ has stopped rising. Embolization, should she require it would also put her kidneys at risk for worsening dysfunction. WBC increased significantly - no fevers - may be due to the hematoma but will cover for possible aspiration pna for now and continue to trend. Check U/A. Begin stool softener. Overall, she is a bit better than yesterday but still not stable. I discussed her care with her family that was at the bedside. Questions were answered. Documented By: Milly Hubbard Data Medications: Current Inpatient Medications Medications (Trade) Dose Ordered Sig/Angeles Route Start Time Stop Time Status Last Admin Dose Admin Ioversol (Optiray 320) 125 ml UD PRN IV 04/24/16 15:45 04/28/16 15:44 Atorvastatin Calcium (Lipitor Tab) 10 mg DAILY PO 04/25/16 09:00 05/25/16 08:59 04/26/16 08:36 10 MG Levothyroxine Sodium (Synthroid Tab) 75 mcg DAILYBB PO 04/25/16 06:00 05/25/16 06:59 04/26/16 05:52 75 MCG Metoprolol Succinate (Toprol Xl Tab) 50 mg DAILY PO 04/25/16 09:00 05/25/16 08:59 Future Hold Pantoprazole Sodium (Protonix Tab) 40 mg BID PO 04/24/16 21:00 05/24/16 20:59 04/26/16 08:37 40 MG Ropinirole HCl (Requip Tab) 1 mg DAILY PO 04/25/16 09:00 05/25/16 08:59 04/26/16 08:37 1 MG Cholecalciferol (Vitamin D Tab) 5,000 inter.unit DAILY PO 04/25/16 09:00 05/25/16 08:59 04/26/16 08:37 5,000 INTER.UNIT Al Hydrox/Mg Hydrox/Simethicone (Maalox Max Susp) 15 ml Q4H PRN PO 04/24/16 18:15 05/24/16 18:14 Magnesium Hydroxide (Milk Of Magnesia Susp) 30 ml Q12H PRN PO 04/24/16 18:15 05/24/16 18:14 Ondansetron HCl (Zofran Inj) 4 mg Q6H PRN IV 04/24/16 18:15 05/24/16 18:14 04/25/16 04:01 4 MG Polyethylene (Miralax Powder Packet) 17 gm DAILY PRN PO 04/24/16 18:15 05/24/16 18:14 Miscellaneous (Iv Fluids Completed) 1 ea PRN PRN N/A 04/24/16 21:45 04/24/17 21:44 Miscellaneous (Remove Lidoderm Patch) 1 ea DAILY@21 N/A 04/25/16 21:00 05/25/16 20:59 Lidocaine (Lidoderm Patch 5%) 1 patch DAILY TD 04/26/16 09:00 05/26/16 08:59 Morphine Sulfate (MoRPHine SULFATE INJ) 2 mg Q2H PRN IV 04/25/16 04:45 05/09/16 04:44 04/26/16 06:09 2 MG Lorazepam 1 mg 1 mg Q4H PRN IV 04/25/16 04:45 05/25/16 04:44 Sodium Chloride (Nss 1000ml) 1,000 ml @ 100 mls/hr Q10H IV 04/25/16 09:00 05/25/16 08:59 04/26/16 05:52 100 MLS/HR Enteral Nutritional Formula (Boost) 1 can TID PO 04/25/16 14:00 05/25/16 13:59 04/26/16 08:35 1 CAN Metoprolol Tartrate (Lopressor Iv) 2.5 mg Q6 IV. 04/25/16 12:00 05/25/16 11:59 04/25/16 12:12 2.5 MG Docusate Sodium 100 mg 100 mg BID PO 04/26/16 09:00 05/26/16 08:59 Furosemide/Syringe (Lasix Inj/ Syringe) 4 ml @ 4 mls/min 1000 IV 04/26/16 10:00 04/26/16 16:00 Oxycodone/ Acetaminophen (Percocet 5-325mg Tab) 1 tab Q4H PO 04/26/16 10:00 05/10/16 09:59 I & O: 24-Hour Column 04/26/16 07:59 Intake Total 5932 ml Output Total 515 ml Balance 5417 ml Vital Signs: Date Time Temp Pulse Resp B/P Pulse Ox O2 Delivery O2 Flow Rate FiO2 04/26/16 07:57 36.9 103 20 105/53 93 04/26/16 07:30 Room Air 04/26/16 06:00 101 29 106/58 91 Room Air 04/26/16 06:00 101 29 106/58 79 04/26/16 05:30 110 30 103/38 04/26/16 05:00 92 27 107/74 92 04/26/16 04:30 102 25 95/59 91 04/26/16 04:00 Room Air 04/26/16 04:00 36.7 91 22 110/57 04/26/16 03:30 105 27 102/59 04/26/16 03:01 110 23 132/59 90 04/26/16 02:30 96 23 100/46 93 04/26/16 02:00 109 22 85/51 89 04/26/16 01:00 88 30 101/61 Room Air 04/26/16 00:30 94 29 106/60 91 Room Air 04/26/16 00:18 116 23 110/66 91 Room Air 04/26/16 00:01 36.4 100 42 84/63 86 Room Air 04/26/16 00:00 Room Air 04/25/16 23:00 97 33 122/68 91 Room Air 04/25/16 22:00 95 30 84/64 90 Room Air 04/25/16 21:31 99 24 107/55 94 Room Air 04/25/16 21:00 96 24 103/57 96 Room Air 04/25/16 20:20 99 26 109/52 96 04/25/16 20:15 36.4 84 26 85/35 90 04/25/16 20:00 Room Air 04/25/16 19:56 36.7 101 27 94/60 94 04/25/16 19:43 36.4 109 25 103/50 97 04/25/16 19:41 36.4 99 25 103/50 93 04/25/16 18:45 36.7 91 18 103/92 94 04/25/16 18:15 36.9 94 31 99/59 95 04/25/16 18:00 93 91/56 04/25/16 17:58 36.8 114 26 101/48 94 04/25/16 16:45 117 26 82/50 95 Room Air 04/25/16 16:30 118 26 96/52 94 Room Air 04/25/16 16:28 108 24 83/53 95 Room Air 04/25/16 16:00 Room Air 04/25/16 15:45 36.5 103 24 79/54 94 Room Air 04/25/16 15:36 107 29 90/59 95 Room Air 04/25/16 15:30 103 19 85/53 96 Room Air 04/25/16 15:15 105 17 97/50 94 Room Air 04/25/16 15:12 95 24 108/67 95 Room Air 04/25/16 15:00 107 26 81/59 94 Room Air 04/25/16 14:00 36.6 108 24 92/49 94 Room Air 04/25/16 12:12 107 116/61 04/25/16 12:00 108 24 116/61 94 Room Air 04/25/16 12:00 Room Air 04/25/16 11:30 106 22 112/53 94 Room Air 04/25/16 11:00 109 22 95/57 95 Room Air 04/25/16 10:30 112 26 104/59 95 Room Air 04/25/16 10:00 99 23 103/62 96 Room Air 04/25/16 09:43 102 26 88/58 96 Room Air Laboratory Results: Last 24 Hours Test 04/25/16 10:13 04/25/16 11:19 04/25/16 15:57 04/25/16 21:05 Hemoglobin 8.9 g/dL 7.3 g/dL 8.9 g/dL Hematocrit 25.2 % 20.6 % 25.5 % Bedside Glucose 153 mg/dl Prothrombin Time 12.0 SECONDS Prothromb Time International Ratio 1.1 Sodium Level 138 mmol/L 139 mmol/L Potassium Level 4.5 mmol/L 5.3 mmol/L Chloride Level 102 mmol/L 107 mmol/L Carbon Dioxide Level 22 mmol/L 21 mmol/L Anion Gap 14.0 mmol/L 11.0 mmol/L Blood Urea Nitrogen 36 mg/dl 35 mg/dl Creatinine 2.60 mg/dl 2.40 mg/dl Est Creatinine Clear Calc Drug Dose 20.5 ml/min 22.2 ml/min Estimated GFR () 19.8 21.8 Estimated GFR (Non- 17.1 18.8 BUN/Creatinine Ratio 14.0 14.4 Random Glucose 147 mg/dl 129 mg/dl Lactic Acid Level 2.6 mmol/L Calcium Level 7.7 mg/dl 6.8 mg/dl Test 3/9/17 00:29 04/26/16 05:22 04/26/16 08:15 04/26/16 08:19 Hemoglobin 9.0 g/dL 8.4 g/dL Hematocrit 25.4 % 23.6 % Potassium Level 4.7 mmol/L 4.6 mmol/L White Blood Count 38.01 K/uL Red Blood Count 2.89 M/uL Mean Corpuscular Volume 81.7 fL Mean Corpuscular Hemoglobin 29.1 pg Mean Corpuscular Hemoglobin Concent 35.6 g/dl RDW Standard Deviation 53.2 fL RDW Coefficient of Variation 18.1 % Platelet Count 160 K/uL Mean Platelet Volume 10.4 fL Nucleated RBC Absolute Count (auto) 0.10 K/uL Nucleated Red Blood Cells % 0.3 % Prothrombin Time 11.5 SECONDS Prothromb Time International Ratio 1.1 Sodium Level 137 mmol/L Chloride Level 102 mmol/L Carbon Dioxide Level 23 mmol/L Anion Gap 12.0 mmol/L Blood Urea Nitrogen 39 mg/dl Creatinine 2.60 mg/dl Est Creatinine Clear Calc Drug Dose 20.5 ml/min Estimated GFR () 19.8 Estimated GFR (Non- 17.1 BUN/Creatinine Ratio 15.0 Random Glucose 119 mg/dl Calcium Level 8.3 mg/dl Total Bilirubin 4.4 mg/dl Direct Bilirubin 2.1 mg/dl Aspartate Amino Transf (AST/SGOT) 71 U/L Alanine Aminotransferase (ALT/SGPT) 64 U/L Alkaline Phosphatase 68 U/L Total Protein 5.5 gm/dl Albumin 3.4 gm/dl Lipase 91 U/L Lactic Acid Level 1.9 mmol/L [~ rep ct add3]] SINGLE VIEW CHEST CLINICAL HISTORY: Pneumonia FINDINGS: An AP, portable, semierect chest radiograph is compared to chest x-ray and chest CT dated 04/19/2016. The examination is degraded by portable technique and patient rotation. A 2-lead cardiac pacemaker is unchanged in position. The heart is enlarged and there is atherosclerotic calcification of the thoracic aorta. The pulmonary vasculature is noncongested. There is chronic elevation of the right hemidiaphragm and chronic interstitial thickening. There is a small right pleural effusion with bibasilar atelectasis. No pneumothorax is seen. The skeletal structures are osteopenic. Degenerative change and scoliosis are noted throughout the thoracic spine. IMPRESSION: 1. Cardiomegaly and cardiac pacemaker. There is no radiographic evidence of congestive failure. 2. Small right pleural effusion with bibasilar atelectasis.
[2016-04-26] MEDS ORDERED: FUROSEMIDE INJ 40 MG in SYRINGE 0 ML IV SCH (10:00)
[2016-04-26] MEDS: DOCUSATE SODIUM 100 MG CAP PO SCH ×2 (10:04→22:05)
[2016-04-26] MEDS: OXYCODONE/ACETAMINOPHEN 5-325 TAB PO SCH ×4 (10:05→22:12)
[2016-04-26 11:17] LABS: HEMATOCRIT 26.4 % (37-47)
--- NOTE | 2016-04-26 11:18 | DIAGNOSTIC IMAGING REPORT ---
ABDOMEN AND PELVIS CT WITHOUT CONTRAST CT DOSE: 918.63 mGy.cm HISTORY: Follow-up retroperitoneal hematoma TECHNIQUE: Multiaxial CT images of the abdomen and pelvis were performed without contrast. COMPARISON STUDY: Abdomen and pelvis CT 04/24/2016. FINDINGS: Significant increase in size in the large right retroperitoneal/iliopsoas hematoma. The retroperitoneal component now measures approximately 19 x 15 cm, presumed measuring 12 x 8 cm. There are suggestion of a small amount of perihepatic hemorrhage which is also new from the prior study. Therefore, this is consistent with intraperitoneal extension. There is a small intramuscular hematoma within a left adductor muscle which is stable in size. This measures 3.4 cm in thickness. Minimal amount of a small right pleural effusion. Pacemaker wires are present. Patchy densities within the base the of right lower lobe. No pneumoperitoneum. No pneumatosis. No fractures within the visualized osseous structures. Stable intrahepatic moderate dilatation. The unenhanced spleen, adrenal glands, pancreas, and kidneys are unremarkable. Stable 1.2 cm left adrenal gland nodule. No retroperitoneal lymphadenopathy. Bladder is decompressed by Sparks catheter. Suboptimal evaluation for bowel pathology due to the lack of intravenous and oral contrast. However, there is no definite bowel wall thickening or obstruction. IMPRESSION: 1. Interval increase in size in the 19 x 15 cm right retroperitoneal/iliopsoas hematoma. There is also a small amount intraperitoneal extension of the hemorrhage surrounding the liver. 2. Interval development of a small right pleural effusion. Right lower lobe patchy airspace opacities may represent atelectasis or pneumonia. 3. Small intramuscular hematoma within the left groin remains stable. 4. These findings were discussed with Dr. Hubbard at 11:15 AM on 04/26/2016. Electronically signed by: Nolan Strange M.D. 04/26/2016 11:16 AM Dictated Date/Time: 04/26/2016 11:03 AM
[2016-04-26 13:10] LABS: URINE APPEARANCE CLEAR (CLEAR); URINE BILIRUBIN NEG (NEG); URINE COLOR YELLOW; URINE EPITHELIAL CELL AUTO 0-5 /lpf (0-5); URINE NITRITE NEG (NEG); URINE SPECIFIC GRAVITY 1.009 (1.000-1.030); UROBILINOGEN NEG (NEG)
[2016-04-26] MEDS ORDERED: PIPERACILL/TAZOBAC IV 3.375 GM in DEXTROSE 5% 100ML 100 ML IV ONE (13:15)
--- NOTE | 2016-04-26 13:21 | Hospitalist Progress Note ---
Hospitalist Progress Note Date of Service Apr 26, 2016. (Elisa Maxwell ., AUSTIN-C) Subjective Pt evaluation today including: conversation w/ patient, physical exam, chart review, lab review, review of studies, conversation w/ transportation consultant (spoke with Dr. Brown), review of inpatient medication list Pain: 4/10 aching pain in R flank, hip and thigh, worse with movement PO Intake: Very poor, no appetite Voiding: martinez catheter in place Patient reports feeling very weak and fatigued. She still does not have an appetite and has not been eating. She complains of a 4/10 dull pain in her right flank, hip and thigh. The pain is worse with movement, increasing to a 7/ 10 in intensity. She still complains of tingling/numbness in the right flank/ hip down to the knee. Martinez catheter is in place draining clear urine. The patient denies fevers, chills, sweats, chest pain, palpitations, claudication, cough, wheezing, shortness of breath, nausea, vomiting, abdominal pain, dysuria , hematuria, urinary retention, and paralysis. Yesterday evening, the patient remained tachycardic and hypotensive. Her Hgb dropped to 7.3 in the evening. She was given 2 more units of PRBC evening of 04/25. This morning she received an additional 1 unit PRBC. Last Hgb was 9.4 at around 1100 this morning. Additional Comments: See HPI for pertinent positives and negatives. All other systems reviewed and negative. (Elisa Maxwell ., PA-C) Objective Vital Signs Date Time Temp Pulse Resp B/P Pulse Ox O2 Delivery O2 Flow Rate FiO2 04/26/16 11:55 104 112/58 04/26/16 09:32 36.9 04/26/16 09:16 112 28 90/62 94 Room Air 04/26/16 09:15 112 28 93 04/26/16 09:00 36.7 94 26 108/70 92 Room Air 04/26/16 08:45 99 31 109/74 91 04/26/16 08:30 36.7 96 26 113/50 04/26/16 08:15 36.7 86 30 102/58 92 Room Air 04/26/16 08:00 36.9 100 26 99/48 04/26/16 08:00 Room Air 04/26/16 07:57 36.9 103 20 105/53 93 04/26/16 07:45 97 26 92 04/26/16 07:30 Room Air 04/26/16 07:30 36.9 91 28 105/53 91 Room Air 04/26/16 07:15 115 20 91 04/26/16 07:00 97 21 88/46 04/26/16 06:00 101 29 106/58 91 Room Air 04/26/16 06:00 101 29 106/58 79 04/26/16 05:30 110 30 103/38 04/26/16 05:00 92 27 107/74 92 04/26/16 04:30 102 25 95/59 91 04/26/16 04:00 Room Air 04/26/16 04:00 36.7 91 22 110/57 04/26/16 03:30 105 27 102/59 04/26/16 03:01 110 23 132/59 90 04/26/16 02:30 96 23 100/46 93 04/26/16 02:00 109 22 85/51 89 04/26/16 01:00 88 30 101/61 Room Air 04/26/16 00:30 94 29 106/60 91 Room Air 04/26/16 00:18 116 23 110/66 91 Room Air 04/26/16 00:01 36.4 100 42 84/63 86 Room Air 04/26/16 00:00 Room Air 04/25/16 23:00 97 33 122/68 91 Room Air 04/25/16 22:00 95 30 84/64 90 Room Air 04/25/16 21:31 99 24 107/55 94 Room Air 04/25/16 21:00 96 24 103/57 96 Room Air 04/25/16 20:20 99 26 109/52 96 04/25/16 20:15 36.4 84 26 85/35 90 04/25/16 20:00 Room Air 04/25/16 19:56 36.7 101 27 94/60 94 04/25/16 19:43 36.4 109 25 103/50 97 04/25/16 19:41 36.4 99 25 103/50 93 04/25/16 18:45 36.7 91 18 103/92 94 04/25/16 18:15 36.9 94 31 99/59 95 04/25/16 18:00 93 91/56 04/25/16 17:58 36.8 114 26 101/48 94 04/25/16 16:45 117 26 82/50 95 Room Air 04/25/16 16:30 118 26 96/52 94 Room Air 04/25/16 16:28 108 24 83/53 95 Room Air 04/25/16 16:00 Room Air 04/25/16 15:45 36.5 103 24 79/54 94 Room Air 04/25/16 15:36 107 29 90/59 95 Room Air 04/25/16 15:30 103 19 85/53 96 Room Air 04/25/16 15:15 105 17 97/50 94 Room Air 04/25/16 15:12 95 24 108/67 95 Room Air 04/25/16 15:00 107 26 81/59 94 Room Air 04/25/16 14:00 36.6 108 24 92/49 94 Room Air (Elisa Maxwell ., PA-C) Physical Exam General Appearance: WD/WN, no apparent distress, + obese Eyes: normal inspection, PERRL, EOMI, + pertinent finding (proptosis) ENT: normal ENT inspection, hearing grossly normal, pharynx normal, + pertinent finding (oral mucosa very dry) Neck: supple, no JVD, trachea midline Respiratory/Chest: normal breath sounds, no respiratory distress, + decreased breath sounds Cardiovascular: no gallop, no murmur, + tachycardia, + irregularly irregular Abdomen: normal bowel sounds, soft, + tenderness (mild diffuse tenderness), + pertinent finding (large area of ecchymosis in RLQ and several smaller areas around abdomen secondary to SC injections) Extremities: non-tender, normal inspection, no pedal edema, + pertinent finding (R flank, hip and thigh TTP) Neurologic/Psychiatric: alert, normal mood/affect, oriented x 3 Skin: normal color, warm/dry, no rash (Elisa Maxwell ., PA-C) Laboratory Results Last 24 Hours Test 04/25/16 15:57 04/25/16 21:05 04/26/16 00:29 04/26/16 05:22 Hemoglobin 7.3 g/dL 8.9 g/dL 9.0 g/dL 8.4 g/dL Hematocrit 20.6 % 25.5 % 25.4 % 23.6 % Prothrombin Time 12.0 SECONDS 11.5 SECONDS Prothromb Time International Ratio 1.1 1.1 Sodium Level 138 mmol/L 139 mmol/L 137 mmol/L Potassium Level 4.5 mmol/L 5.3 mmol/L 4.7 mmol/L 4.6 mmol/L Chloride Level 102 mmol/L 107 mmol/L 102 mmol/L Carbon Dioxide Level 22 mmol/L 21 mmol/L 23 mmol/L Anion Gap 14.0 mmol/L 11.0 mmol/L 12.0 mmol/L Blood Urea Nitrogen 36 mg/dl 35 mg/dl 39 mg/dl Creatinine 2.60 mg/dl 2.40 mg/dl 2.60 mg/dl Est Creatinine Clear Calc Drug Dose 20.5 ml/min 22.2 ml/min 20.5 ml/min Estimated GFR () 19.8 21.8 19.8 Estimated GFR (Non- 17.1 18.8 17.1 BUN/Creatinine Ratio 14.0 14.4 15.0 Random Glucose 147 mg/dl 129 mg/dl 119 mg/dl Lactic Acid Level 2.6 mmol/L Calcium Level 7.7 mg/dl 6.8 mg/dl 8.3 mg/dl White Blood Count 38.01 K/uL Red Blood Count 2.89 M/uL Mean Corpuscular Volume 81.7 fL Mean Corpuscular Hemoglobin 29.1 pg Mean Corpuscular Hemoglobin Concent 35.6 g/dl RDW Standard Deviation 53.2 fL RDW Coefficient of Variation 18.1 % Platelet Count 160 K/uL Mean Platelet Volume 10.4 fL Nucleated RBC Absolute Count (auto) 0.10 K/uL Nucleated Red Blood Cells % 0.3 % Test 04/26/16 08:15 04/26/16 08:19 04/26/16 11:11 04/26/16 11:42 Total Bilirubin 4.4 mg/dl Direct Bilirubin 2.1 mg/dl Aspartate Amino Transf (AST/SGOT) 71 U/L Alanine Aminotransferase (ALT/SGPT) 64 U/L Alkaline Phosphatase 68 U/L Total Protein 5.5 gm/dl Albumin 3.4 gm/dl Lipase 91 U/L Lactic Acid Level 1.9 mmol/L Hemoglobin 9.4 g/dL Hematocrit 26.4 % Bedside Glucose 158 mg/dl (Elisa Maxwell, PA-C) Diagnostic Results Reviewed the following studies and agree with interpretation as follows: Patient Name: ELENA JONES Unit Number: [id number] Dictated: 04/26/16922 Transcribed: 04/26/16922 EV Printed Date/Time: [~ rep prt dt]/[~ rep prt tm] [~ rep ct labl] - [~ rep ct ivnm] [facility] [place] [address] Dictated: 04/26/16922 Transcribed: 04/26/16922 EV Printed Date/Time: [~ rep prt dt]/[~ rep prt tm] [~ rep ct labl] - [~ rep ct ivnm] Patient: ELENA JONES Address1: [address] [facility] Rec: [id number] Address2: Acct ID: [id number] [facility] Zip: [place] [address] Date: 1940 Sex: F Room/Bed: [facility] Ref Phy: Lg Rodriguez MD SC[facility] Att Phy: Sam Tadeo D.OBharath Report #: [id number] Lexie Phy: Lg Rodriguez MD Test: CXR1P Admit Phy: Last Johnston MD Punch Box Tender: PRESLEY Interpreting Phy: Troy Platt M.D. Diagnosis: RETROPERITONEAL BLEED Ordering Phy: Lorna Brown MD Service Date: 04/26/16 Admit Date: 04/24/1702/07/17 MNE: PWRSCRIBE CONF: DICTATED BY: Troy Platt M.D.]] CC: Sam Tadeo D.OLorna Love MD Mathis, James S MD Endcc: [~ rep ct add3]] SINGLE VIEW CHEST CLINICAL HISTORY: Pneumonia FINDINGS: An AP, portable, semierect chest radiograph is compared to chest x-ray and chest CT dated 04/19/2016. The examination is degraded by portable technique and patient rotation. A 2-lead cardiac pacemaker is unchanged in position. The heart is enlarged and there is atherosclerotic calcification of the thoracic aorta. The pulmonary vasculature is noncongested. There is chronic elevation of the right hemidiaphragm and chronic interstitial thickening. There is a small right pleural effusion with bibasilar atelectasis. No pneumothorax is seen. The skeletal structures are osteopenic. Degenerative change and scoliosis are noted throughout the thoracic spine. IMPRESSION: 1. Cardiomegaly and cardiac pacemaker. There is no radiographic evidence of congestive failure. 2. Small right pleural effusion with bibasilar atelectasis. Electronically signed by: Troy Platt M.D. 04/26/2016 9:25 AM Dictated Date/Time: 04/26/2016 9:23 AM The status of this report is Signed. Draft = Not yet reviewed or approved by Radiologist. Signed = Reviewed and approved by Radiologist. <AttendingPhy>Sam Tadeo D.O.</AttendingPhy> <FamilyPhy>Lg Rodriguez MD</FamilyPhy> <PrimaryPhy>Lg Rodriguez MD</PrimaryPhy> <UnitNumber>[id number] </UnitNumber> <VisitNumber>[id number]</VisitNumber> <PatientName>KARENELENA< /PatientName> <DateOfBirth>1940</DateOfBirth> <Location>C.MSICU</Location > <ServiceDate>04/24/16</ServiceDate> <MNE>ESINDI</MNE> <OrderingPhy>Lorna Brown MD</OrderingPhy> <OrderingPhyMNE>f rep ord dr ortega</OrderingPhyMNE> < DictatingPhyMNE>f rep dict dr ortega</DictatingPhyMNE> <CCListMNE>f rep ct shannon</ CCListMNE> <AdmittingPhyMNE>f pt admit dr ortega</AdmittingPhyMNE> <AttendingPhyMNE >f pt attend dr ortega</AttendingPhyMNE> <ConsultingPhyMNE>f pt consult dr ortega</ConsultingPhyMNE> <FamilyPhyMNE>f pt fam dr ortega</FamilyPhyMNE> <OtherPhyMNE>f pt other dr ortega</OtherPhyMNE> < PrimaryPhyMNE>f pt prim care dr ortega</PrimaryPhyMNE> <ReferringPhyMNE>f pt referring dr ortega</ReferringPhyMNE> Patient Name: ELENA JONES Unit Number: [id number] Dictated: 04/26/161102 Transcribed: 04/26/161102 [facility] Printed Date/Time: [~ rep prt dt]/[~ rep prt tm] [~ rep ct labl] - [~ rep ct ivnm] [facility] Radiology Department [place], [place] [id number] Dictated: 04/26/161102 Transcribed: 04/26/161102 [place] Printed Date/Time: [~ rep prt dt]/[~ rep prt tm] [~ rep ct labl] - [~ rep ct ivnm] Patient: ELENA JONES Address1: [address] [place] [address] [address] [facility] Rec: [id number] Address2: Acct ID: [id number] [facility] Zip: [place] [address] Date: 1940 Sex: F Room/Bed: [facility] Ref Phy: Lg Rodriguez MD SC: DEVENDRA Att Phy: Sam Tadeo D.O. Report #: [id number] Lexie Phy: gL Rodriguez MD Test: APWO Admit Phy: Last Johnston MD Punch Box Tender: JODI Interpreting Phy: Nolan Strange MD Diagnosis: RETROPERITONEAL BLEED Ordering Phy: Lorna Brown MD Service Date: 04/26/16 Admit Date: 04/24/1702/07/17 MNE: PWRSCRIBE CONF: DICTATED BY: Nolan Strange M.D.]] CC: Sam Tadeo D.OLorna Love MD Mathis, James S MD Endcc: [~ rep ct add3]] ABDOMEN AND PELVIS CT WITHOUT CONTRAST CT DOSE: 918.63 mGy.cm HISTORY: Follow-up retroperitoneal hematoma TECHNIQUE: Multiaxial CT images of the abdomen and pelvis were performed without contrast. COMPARISON STUDY: Abdomen and pelvis CT 04/24/2016. FINDINGS: Significant increase in size in the large right retroperitoneal/iliopsoas hematoma. The retroperitoneal component now measures approximately 19 x 15 cm, presumed measuring 12 x 8 cm. There are suggestion of a small amount of perihepatic hemorrhage which is also new from the prior study. Therefore, this is consistent with intraperitoneal extension. There is a small intramuscular hematoma within a left adductor muscle which is stable in size. This measures 3.4 cm in thickness. Minimal amount of a small right pleural effusion. Pacemaker wires are present. Patchy densities within the base the of right lower lobe. No pneumoperitoneum. No pneumatosis. No fractures within the visualized osseous structures. Stable intrahepatic moderate dilatation. The unenhanced spleen, adrenal glands, pancreas, and kidneys are unremarkable. Stable 1.2 cm left adrenal gland nodule. No retroperitoneal lymphadenopathy. Bladder is decompressed by Martinez catheter. Suboptimal evaluation for bowel pathology due to the lack of intravenous and oral contrast. However, there is no definite bowel wall thickening or obstruction. IMPRESSION: 1. Interval increase in size in the 19 x 15 cm right retroperitoneal/iliopsoas hematoma. There is also a small amount intraperitoneal extension of the hemorrhage surrounding the liver. 2. Interval development of a small right pleural effusion. Right lower lobe patchy airspace opacities may represent atelectasis or pneumonia. 3. Small intramuscular hematoma within the left groin remains stable. 4. These findings were discussed with Dr. Hubbard at 11:15 AM on 04/26/2016. Electronically signed by: Nolan Strange M.D. 04/26/2016 11:16 AM Dictated Date/Time: 04/26/2016 11:03 AM The status of this report is Signed. Draft = Not yet reviewed or approved by Radiologist. Signed = Reviewed and approved by Radiologist. <AttendingPhy>Sam Tadeo D.O.</AttendingPhy> <FamilyPhy>Lg Rodriguez MD</FamilyPhy> <PrimaryPhy>Lg Rodriguez MD</PrimaryPhy> <UnitNumber>[id number] </UnitNumber> <VisitNumber>[id number]</VisitNumber> <PatientName>ELENA JONES< /PatientName> <DateOfBirth>1940</DateOfBirth> <Location>[facility]</Location > <ServiceDate>04/24/16</ServiceDate> <MNE>ESINDI</MNE> <OrderingPhy>Lorna Brown MD</OrderingPhy> <OrderingPhyMNE>f rep ord dr ortega</OrderingPhyMNE> < DictatingPhyMNE>f rep dict dr ortega</DictatingPhyMNE> <CCListMNE>f rep ct jaie</ CCListMNE> <AdmittingPhyMNE>f pt admit dr ortega</AdmittingPhyMNE> <AttendingPhyMNE >f pt attend dr ortega</AttendingPhyMNE> <ConsultingPhyMNE>f pt consult dr ortega</ConsultingPhyMNE> <FamilyPhyMNE>f pt fam dr ortega</FamilyPhyMNE> <OtherPhyMNE>f pt other dr ortega</OtherPhyMNE> < PrimaryPhyMNE>f pt prim care dr ortega</PrimaryPhyMNE> <ReferringPhyMNE>f pt referring dr ortega</ReferringPhyMNE> (Elisa Maxwell ., PHILLIP) Assessment and Plan 75 y/o female with a history of A. fib, pacemaker placement, chronic diastolic CHF, and hypothyroidism who presented to the ED with lower back pain radiating down her right lower extremity as well as numbness and tingling. The patient had just been discharged from the hospital on 04/23 for a GI bleed and pulmonary edema. Per family, the patient had been feeling well at discharge. The following day the patient started to complain of pain, and she had a loss of appetite. In the ED she was found to have a right iliopsoas hematoma measuring 6 x 8 x 12 cm. The patient has a history of being on Coumadin for the last 12 years due to her A. fib and has not had complications in the past. 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 Denies falls/trauma -Admitted to ICU -Coumadin DC'd -Patient given 2 units of FFP and total of 5 mg Vitamin K -INR 1.1 on 04/26 -Regular vascular checks -Consider general surgery consult if does not improve -Will continue to monitor Acute blood loss anemia secondary to hematoma--ongoing -Hemoglobin 10.6 upon arrival. Repeat Hgb 8.2 a few hours later -Patient given 2 units of packed red blood cells -Repeat hemoglobin 9.6 on 04/25. Later that evening, Hgb dropped to 7.3. Pt received another 2 units PRBC. Hgb up to 8.4, but pt given 1 more unit PRBC morning of 04/26 -Last Hgb 9.4 on 04/26 at 1100 Hypotension--ongoing -Patient received blood products as above -Continue NSS at 100 cc/hr. Consider increasing rate given hypotension and worsening renal function. Consider pressor support Leukocytosis--ongoing -WBC 14.66 upon arrival. Recently received steroids -Repeat WBC 21.86 on 04/25. Patient has been afebrile while inpatient -WBC on 04/26 38.01 -Blood cultures x 2 pending -Lactic acid 2.6, repeat lactic acid 1.9 -CXR shows small right pleural effusion, bilateral atelectasis -CT abd/pelvis shows increase in size of hematoma and intraperitoneal extension around liver. Small right pleural effusion. RLL patchy airspace opacities atelectasis vs PNA. -Zosyn IV -Pt still afebrile. If develops fevers, will add vancomycin IV Acute kidney injury likely secondary to hypoperfusion/hypotension--baseline creatinine around 1.0 -Creatinine 1.3 upon arrival -Creatinine on 04/25 elevated to 1.8 -Creatinine 2.6 on 04/26 -IVF as above, consider increasing fluids or adding pressors as continued hypotension will further worsen renal function -Continue to monitor A-fib--patient has been tachycardic with heart rate in 110s. Pacemaker in place -Continue metoprolol succinate 50 mg PO qd -Coumadin held as above Chronic diastolic CHF--stable -Continue metoprolol as above -Hold Lasix for now due to hypotension. Would avoid further Lasix doses given creatinine and hypotension -CXR did not show acute CHF Hypothyroidism -Continue Synthroid 75 g PO qd DVT prophylaxis -Hold chemical prophylaxis due to bleeding -EDSON robledo and SCDs Code Status -Level I, FULL RESUSCITATION STATUS (Elisa Maxwell ., PA-C) I agree with [place] assessment and plan and have seen and examined pt myself Pt admitted with hematoma likely spontaneous and sepsis during hospital course S/P multiple transfusions Hypotensive at this time Repeat CT pending Worsening renal insuff Pancultured and started on zosyn Continue to monitor in ICU at this time (Sam Tadeo D.O.)
[2016-04-26 13:37] LABS: MANUAL MICROSCOPIC REQUIRED? NO; REVIEW REQ? YES
[2016-04-26 14:10] LABS: URINE PATH CASTS 0-3 GRANULAR CASTS /lpf (0)
[2016-04-26 14:55] LABS: HEMATOCRIT 24.7 % (37-47)
[2016-04-26 15:55] LABS: BUN/CREATININE RATIO 16.3 (10-20); CREATININE 2.4 mg/dl (0.60-1.20); POTASSIUM 4.1 mmol/L (3.5-5.1)
[2016-04-26] MEDS ORDERED: FUROSEMIDE INJ 40 MG in SYRINGE 0 ML IV ONE (18:00)
[2016-04-26] MEDS ORDERED: MoRPHine SULFATE 2 MG/ML CARP IV PRN (18:45)
[2016-04-26 21:03] LABS: HEMATOCRIT 24.3 % (37-47)
[2016-04-26] MEDS: PIPERACILL/TAZOBAC IV 3.375 GM in DEXTROSE 5% 100ML 100 ML IV SCH (22:08)
[2016-04-27] VITALS (15 sets, daily range): BP systolic 85–127; BP diastolic 48–66; PULSE 85–108; TEMP 36.6–37; O2SAT 92–100
[2016-04-27] MEDS: SODIUM CHLORIDE 0.9% 1000ML 1,000 ML IV SCH (00:41)
[2016-04-27] MEDS: OXYCODONE/ACETAMINOPHEN 5-325 TAB PO SCH ×5 (02:00→23:37)
[2016-04-27] MEDS: PIPERACILL/TAZOBAC IV 3.375 GM in DEXTROSE 5% 100ML 100 ML IV SCH ×3 (05:38→21:31)
[2016-04-27] MEDS: LEVOTHYROXINE 75 MCG TAB PO SCH (05:39)
[2016-04-27] MEDS: METOPROLOL TARTRATE 1 MG/ML VIAL IV. SCH ×2 (06:00)
[2016-04-27 06:05] LABS: INR 1.1 (0.9-1.1); PROTHROMBIN TIME (PATIENT) 11.5 SECONDS (9.0-12.0)
[2016-04-27 06:24] LABS: BUN/CREATININE RATIO 17.6 (10-20); MAGNESIUM 2.3 mg/dl (1.8-2.4); POTASSIUM 4.2 mmol/L (3.5-5.1)
[2016-04-27 06:25] LABS: PHOSPHORUS 3.3 mg/dl (2.5-4.9)
[2016-04-27 06:29] LABS: MEAN CELL VOLUME 84.9 fL (80-100); MEAN CORPUSCULAR HEMOGLOBIN 29.9 pg (25-34); MEAN CORPUSCULAR HGB CONC 35.2 g/dl (32-36); MEAN PLATELET VOLUME 10.3 fL (7.4-10.4); PLATELET COUNT 150 K/uL (130-400); RED BLOOD COUNT 2.71 M/uL (4.2-5.4); WHITE BLOOD COUNT 30.98 K/uL (4.8-10.8)
[2016-04-27 06:32] LABS: BASO % 0.2 %; BASO ABS # 0.05 K/uL (0-0.2); COMPLETE YES; EOS % 0.1 %; IG% 1.8 %; LYMPH % 6.7 %; LYMPH ABS # 2.09 K/uL (1.2-3.4); MONO % 6.5 %; NEUT % 84.7 %; POLYCHROMASIA 1+
--- NOTE | 2016-04-27 07:10 | DIAGNOSTIC IMAGING REPORT ---
CHEST ONE VIEW PORTABLE CLINICAL HISTORY: f/u R effusion pain COMPARISON STUDY: 04/26/2016 FINDINGS: Slight increase in volume of right effusion. Pulmonary vascular congestion unaltered. Cardiac pacemaker unchanged in position IMPRESSION: Small right pleural effusion slightly increased in volume. Pulmonary vascular congestion. Electronically signed by: Gustavo Lamas M.D. 04/27/2016 7:08 AM Dictated Date/Time: 04/27/2016 7:03 AM
[2016-04-27] MEDS: ATORVASTATIN 10 MG TAB PO SCH (08:40)
[2016-04-27] MEDS: BOOST VANILLA PO SCH ×6 (08:40→20:50)
[2016-04-27] MEDS: FUROSEMIDE INJ 40 MG in SYRINGE 0 ML IV SCH ×2 (08:40→16:43)
[2016-04-27] MEDS: PANTOprazole SOD 40 MG TAB PO SCH ×2 (08:41→20:48)
[2016-04-27] MEDS: DOCUSATE SODIUM/SENNA 50/8.6MG TAB PO SCH ×2 (08:41→20:48)
[2016-04-27] MEDS: ROPINIROLE HCL 1 MG TAB PO SCH (08:41)
[2016-04-27] MEDS: LIDODERM (LIDOCAINE) PATCH 5% TD SCH (08:42)
[2016-04-27] MEDS: CHOLECALCIFEROL 1000 INTER.UNIT TAB PO SCH (08:42)
[2016-04-27 09:24] LABS: HEMATOCRIT 23.1 % (37-47)
--- NOTE | 2016-04-27 10:57 | Hospitalist Progress Note ---
Hospitalist Progress Note Date of Service Apr 27, 2016. (Elisa Maxwell ., PA-C) Subjective Pt evaluation today including: conversation w/ patient, conversation w/ family (daughters at bedside), physical exam, chart review, lab review, review of studies, review of inpatient medication list Pain: None PO Intake: Very poor, little appetite Voiding: martinez catheter in place Patient reports that she is feeling better. She states that she does not have any pain at rest, although she does have some pain in the right flank, hip, and thigh with movement. Her tingling in her RLE has remained unchanged. She reports a mild, non-productive cough. She still complains of feeling weak and fatigued and states that this has not improved. Her appetite is somewhat improving, and she was able to eat some Jello this morning. Martinez catheter in place draining clear urine. The patient denies fevers, chills, sweats, chest pain, palpitations, claudication, wheezing, shortness of breath, nausea, vomiting, abdominal pain, dysuria, hematuria, urinary retention, and paralysis. Additional Comments: See HPI for pertinent positives and negatives. All other systems reviewed and negative. (Elisa Maxwell ., PA-C) Objective Vital Signs Date Time Temp Pulse Resp B/P Pulse Ox O2 Delivery O2 Flow Rate FiO2 04/27/16 10:00 85 20 100/65 92 Nasal Cannula 2.0 04/27/16 08:00 37.0 94 26 113/53 96 Nasal Cannula 2.0 04/27/16 08:00 96 Nasal Cannula 2.0 04/27/16 06:00 90 16 90/52 94 Nasal Cannula 2.0 04/27/16 06:00 90 90/52 04/27/16 04:00 Nasal Cannula 2.0 04/27/16 04:00 36.7 89 14 96/54 96 Nasal Cannula 2.0 04/27/16 02:00 90 14 85/56 94 Nasal Cannula 2.0 04/27/16 00:01 36.6 98 17 86/53 95 Nasal Cannula 2.0 04/27/16 00:00 98 86/53 04/26/16 23:59 Nasal Cannula 2.0 04/26/16 22:00 98 22 109/53 94 Nasal Cannula 2.0 04/26/16 20:00 Nasal Cannula 2.0 04/26/16 20:00 36.7 100 24 125/62 95 Nasal Cannula 2.0 04/26/16 18:07 89 24 98/67 94 Nasal Cannula 2.0 04/26/16 18:00 89 98/67 04/26/16 17:00 85 26 125/58 04/26/16 16:00 36.5 94 24 106/53 93 04/26/16 15:22 Room Air 04/26/16 15:00 91 24 107/53 94 04/26/16 14:00 82 27 116/51 96 04/26/16 13:00 85 29 126/58 95 04/26/16 12:00 36.7 95 25 115/72 95 04/26/16 12:00 Room Air 04/26/16 11:55 104 112/58 04/26/16 11:00 106 26 112/58 (Elisa Maxwell ., PA-C) Physical Exam General Appearance: WD/WN, no apparent distress, + obese Eyes: normal inspection, PERRL, EOMI, + pertinent finding (proptosis) ENT: normal ENT inspection, hearing grossly normal, pharynx normal Neck: supple, no JVD, trachea midline Respiratory/Chest: lungs clear, normal breath sounds, no respiratory distress, + decreased breath sounds Cardiovascular: no gallop, no murmur, + tachycardia, + irregularly irregular Abdomen: normal bowel sounds, soft, + tenderness (mild diffuse tenderness) Extremities: normal inspection, no pedal edema, + pertinent finding (R flank, hip and thigh TTP) Neurologic/Psychiatric: alert, normal mood/affect, oriented x 3 (Elisa Maxwell ., PA-C) Laboratory Results Last 24 Hours Test 04/26/16 11:11 04/26/16 11:42 04/26/16 12:54 04/26/16 14:49 Hemoglobin 9.4 g/dL 8.9 g/dL Hematocrit 26.4 % 24.7 % Bedside Glucose 158 mg/dl Urine Color YELLOW Urine Appearance CLEAR Urine pH 5.0 Urine Specific [place] 1.009 Urine Protein NEG Urine Glucose (UA) NEG Urine Ketones NEG Urine Occult Blood 1+ Urine Nitrite NEG Urine Bilirubin NEG Urine Urobilinogen NEG Urine Leukocyte Esterase NEG Urine WBC (Auto) 1-5 /hpf Urine RBC (Auto) 0-4 /hpf Urine Hyaline Casts (Auto) 10-30 /lpf Urine Epithelial Cells (Auto) 0-5 /lpf Urine Bacteria (Auto) NEG Urine Pathogenic Casts 0-3 GRANULAR CASTS /lpf Sodium Level 137 mmol/L Potassium Level 4.1 mmol/L Chloride Level 102 mmol/L Carbon Dioxide Level 25 mmol/L Anion Gap 10.0 mmol/L Blood Urea Nitrogen 39 mg/dl Creatinine 2.40 mg/dl Est Creatinine Clear Calc Drug Dose 22.2 ml/min Estimated GFR () 21.8 Estimated GFR (Non- 18.8 BUN/Creatinine Ratio 16.3 Random Glucose 159 mg/dl Calcium Level 8.0 mg/dl Test 04/26/16 16:29 04/26/16 20:54 04/27/16 05:15 04/27/16 09:18 Bedside Glucose 160 mg/dl Hemoglobin 8.8 g/dL 8.1 g/dL 8.1 g/dL Hematocrit 24.3 % 23.0 % 23.1 % White Blood Count 30.98 K/uL Red Blood Count 2.71 M/uL Mean Corpuscular Volume 84.9 fL Mean Corpuscular Hemoglobin 29.9 pg Mean Corpuscular Hemoglobin Concent 35.2 g/dl Platelet Count 150 K/uL Mean Platelet Volume 10.3 fL Neutrophils (%) (Auto) 84.7 % Lymphocytes (%) (Auto) 6.7 % Monocytes (%) (Auto) 6.5 % Eosinophils (%) (Auto) 0.1 % Basophils (%) (Auto) 0.2 % Neutrophils # (Auto) 26.22 K/uL Lymphocytes # (Auto) 2.09 K/uL Monocytes # (Auto) 2.02 K/uL Eosinophils # (Auto) 0.03 K/uL Basophils # (Auto) 0.05 K/uL RDW Standard Deviation 54.2 fL RDW Coefficient of Variation 17.9 % Immature Granulocyte % (Auto) 1.8 % Immature Granulocyte # (Auto) 0.57 K/uL Nucleated RBC Absolute Count (auto) 0.32 K/uL Nucleated Red Blood Cells % 1.0 % Polychromasia 1+ Prothrombin Time 11.5 SECONDS Prothromb Time International Ratio 1.1 Activated Partial Thromboplast Time 25.0 SECONDS Partial Thromboplastin Ratio 1.0 Sodium Level 139 mmol/L Potassium Level 4.2 mmol/L Chloride Level 103 mmol/L Carbon Dioxide Level 27 mmol/L Anion Gap 9.0 mmol/L Blood Urea Nitrogen 35 mg/dl Creatinine 2.00 mg/dl Est Creatinine Clear Calc Drug Dose 26.6 ml/min Estimated GFR () 27.2 Estimated GFR (Non- 23.5 BUN/Creatinine Ratio 17.6 Random Glucose 119 mg/dl Calcium Level 8.0 mg/dl Phosphorus Level 3.3 mg/dl Magnesium Level 2.3 mg/dl (Elisa Maxwell PA-C) Diagnostic Results Reviewed the following studies and agree with interpretation as follows: Patient Name: ELENA JONES Unit Number: [id number] Dictated: 04/27/16702 Transcribed: 04/27/16702 MS Printed Date/Time: [~ rep prt dt]/[~ rep prt tm] [~ rep ct labl] - [~ rep ct ivnm] [facility] [place] [address] Dictated: 04/27/16702 Transcribed: 04/27/16702 MS Printed Date/Time: [~ rep prt dt]/[~ rep prt tm] [~ rep ct labl] - [~ rep ct ivnm] Patient: ELENA JONES Address1: [facility] [address] [facility] Rec: [id number] Address2: Acct ID: [id number] [facility] Zip: [place] [address] Date: 1940 Sex: F Room/Bed: [facility] Ref Phy: Lg Rodriguez MD [facility] Att Phy: Sam Tadeo D.O. 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 Diagnosis: RETROPERITONEAL BLEED Ordering Phy: Milly Hubbard MD Service Date: 04/27/16 Admit Date: 04/24/1702/07/17 MNE: [id number] CONF: DICTATED BY: Gustavo Lamas M.D.]] CC: Sam Tadeo D.O. Milly Hubbard MD Mathis, James S MD Endcc: [~ rep ct add3]] CHEST ONE VIEW PORTABLE CLINICAL HISTORY: f/u R effusion pain COMPARISON STUDY: 04/26/2016 FINDINGS: Slight increase in volume of right effusion. Pulmonary vascular congestion unaltered. Cardiac pacemaker unchanged in position IMPRESSION: Small right pleural effusion slightly increased in volume. Pulmonary vascular congestion. Electronically signed by: Gustavo Lamas M.D. 04/27/2016 7:08 AM Dictated Date/Time: 04/27/2016 7:03 AM The status of this report is Signed. Draft = Not yet reviewed or approved by Radiologist. Signed = Reviewed and approved by Radiologist. <AttendingPhy>Sam Tadeo D.O.</AttendingPhy> <FamilyPhy>Lg Rodriguez MD</FamilyPhy> <PrimaryPhy>Lg Rodriguez MD</PrimaryPhy> <UnitNumber>[id number] </UnitNumber> <VisitNumber>[id number]</VisitNumber> <PatientName>ELENA JONES< /PatientName> <DateOfBirth>1940</DateOfBirth> <Location>C[facility]</Location > <ServiceDate>04/24/16</ServiceDate> <MNE>ESINDI</MNE> <OrderingPhy>Milly Hubbard MD</OrderingPhy> <OrderingPhyMNE>f rep ord dr ortega</OrderingPhyMNE> < DictatingPhyMNE>f rep dict dr ortega</DictatingPhyMNE> <CCListMNE>f rep ct mne</ CCListMNE> <AdmittingPhyMNE>f pt admit dr ortega</AdmittingPhyMNE> <AttendingPhyMNE >f pt attend dr ortega</AttendingPhyMNE> <ConsultingPhyMNE>f pt consult dr ortega</ConsultingPhyMNE> <FamilyPhyMNE>f pt fam dr ortega</FamilyPhyMNE> <OtherPhyMNE>f pt other dr ortega</OtherPhyMNE> < PrimaryPhyMNE>f pt prim care dr ortega</PrimaryPhyMNE> <ReferringPhyMNE>f pt referring dr ortega</ReferringPhyMNE> (Elisa Maxwell ., PHILLIP) Assessment and Plan 75 y/o female with a history of A. fib, pacemaker placement, chronic diastolic CHF, and hypothyroidism who presented to the ED with lower back pain radiating down her right lower extremity as well as numbness and tingling. The patient had just been discharged from the hospital on 04/23 for a GI bleed and pulmonary edema. Per family, the patient had been feeling well at discharge. The following day the patient started to complain of pain, and she had a loss of appetite. In the ED she was found to have a right iliopsoas hematoma measuring 6 x 8 x 12 cm. The patient has a history of being on Coumadin for the last 12 years due to her A. fib and has not had complications in the past. 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 Denies falls/trauma -Admitted to ICU -Coumadin DC'd -Patient given 2 units of FFP and total of 5 mg Vitamin K -INR 1.1 on 04/27 -Regular vascular checks -Will continue to monitor Acute blood loss anemia secondary to hematoma--ongoing -Hemoglobin 10.6 upon arrival. Repeat Hgb 8.2 a few hours later -Patient given 2 units of packed red blood cells -Repeat hemoglobin 9.6 on 04/25. Later that evening, Hgb dropped to 7.3. Pt received another 2 units PRBC. Hgb up to 8.4, but pt given 1 more unit PRBC morning of 04/26 -Last Hgb 8.1 on 04/27 0900. Would avoid further transfusions if possible Hypotension--ongoing. BP stabilizing with SBP in 100s -Patient received blood products as above Leukocytosis--ongoing -WBC 14.66 upon arrival. Recently received steroids -Repeat WBC 21.86 on 04/25. Patient has been afebrile while inpatient -WBC improved on 04/27 to 30.98 -Blood cultures x 2 and urine culture pending -Lactic acid 2.6, repeat lactic acid 1.9 -CXR 04/26 shows small right pleural effusion, bilateral atelectasis -CXR 04/27 shows slight increase in right pleural effusion and pulmonary vascular congestion -CT abd/pelvis shows increase in size of hematoma and intraperitoneal extension around liver. Small right pleural effusion. RLL patchy airspace opacities atelectasis vs PNA. -Continue Zosyn IV -Pt still afebrile. If develops fevers, will add vancomycin IV Acute kidney injury likely secondary to hypoperfusion/hypotension--baseline creatinine around 1.0. Improving -Creatinine 1.3 upon arrival -Creatinine on 04/25 elevated to 1.8 -Creatinine 2.6 on 04/26 -Repeat creatinine 2.0 on 04/27 -Continue to monitor A-fib--patient has been tachycardic with heart rate in 110s. Pacemaker in place -Continue metoprolol succinate 50 mg PO qd -Coumadin held as above Chronic diastolic CHF--stable -Continue metoprolol as above -Repeat CXR 04/27 shows pulmonary edema and increase in pleural effusion -Lasix per ICU Hypothyroidism -Continue Synthroid 75 g PO qd DVT prophylaxis -Hold chemical prophylaxis due to bleeding -EDSON robledo and SCDs Code Status -Level I, FULL RESUSCITATION STATUS (Elisa Maxwell ., PA-C) I agree with PA assessment and plan and have personally seen and examined pt myself Pt resting comfortably in bed BP improving Lungs: Dec BS bilateral, no w/r/r States pain better controlled Improvement in leukocytosis and renal insuff Cont to monitor HH Spoke with general surgery and appreciate recs Spoke with daughter, will keep pt here but if worsening drop in Hg or needing more transfusions, would transfer to tertiary center (Sam Tadeo D.O.)
--- NOTE | 2016-04-27 11:04 | Critical Care Progress Note ---
Critical Care Progress Note Date of Service Apr 27, 2016. ICU Day ICU Day Number: [address] Hubbard Subjective 75 y/o F with PMH of [place] fib with pacemaker and on Coumadin, HTN , diastolic HF , restless leg syndrome, recently discharged from hospital after pneumonia and CHF exacerbation presented with lower back pain along RLE and found to have a retroperitoneal right iliopsoas hematoma measuring 6 x 8 x [address] revealed an increase in size of hematoma to 19X15 cm Continues to be in pain but is better controlled with Percocet q4h PRN. Pain is mainly in the RLQ and right flank radiating along right lower extremity. Received about a unit of blood yesterday - denies any SOB, CP, orthopnea or PND. appetite continues to be poor but is trying to drink some Boost Objective GENERAL: Patient is in no acute distress. HEENT: normocephalic atraumatic, mucous membranes moist, proptosis NECK: No stridor, no adenopathy, no meningismus, trachea is midline. LUNGS: left sided crackles at the bases, diminished HEART: irregularly irregular, No murmurs ABDOMEN: Soft, RLQ tenderness , tenderness in the right flank and CVA. bruising RLQ ( from Lovenox injections prior to admission) EXTREMITIES: No cyanosis or edema. sensation intact in both Lower extremities. NEUROLOGIC: Oriented x 3 Assessment & Plan 75 y/o F with PMH of a fib with pacemaker and on Coumadin, HTN , diastolic HF , restless leg syndrome, recently discharged from hospital after pneumonia and CHF exacerbation presented with lower back pain along RLE and found to have a retroperitoneal right iliopsoas hematoma measuring 6 x 8 x 12 cm. Received a total of 5 units of blood so far. CT abd/pelvis revealed increase in the size of the hematoma. pain is better controlled with Percocet Neuro: Pain better controlled with Percocet - 5-325 Percocet spaced to q6h - Morphine 1 mg q2h as needed for breakthrough pain Restless leg syndrome: - Continue ropinirole Heme: - Right iliopsoas hematoma- spontaneous with no h/o trauma - s/p 2 units of FFP and 10 mg Vitamin K, 5 units total PRBCs transfused. - CT abd/pelvis 04/27:. Interval increase in size in the 19 x 15 cm right retroperitoneal/iliopsoas hematoma. There is also a small amount intraperitoneal extension of the hemorrhage surrounding the liver. - Hold coumadin Acute blood loss anemia - Hgb at 8.1, total 5 units pRBCS transfused. - H&H q6h Leucocytosis: WBC down to 30.9 from 38.9 yesterday - CXR 04/26: Cardiomegaly and cardiac pacemaker. There is no radiographic evidence of congestive failure. Small right pleural effusion with bibasilar atelectasis. - CXR 04/27: Small right pleural effusion slightly increased in volume. Pulmonary vascular congestion. - IV Zosyn ordered for a possible pneumonia - Lipase, liver enzymes WNL CVS: Hypotension - s/p 5 units pRBCs and 6 albumin - positive fluid balance- dc NSS Atrial fibrillation with a pacemaker - 2.5 mg Lopressor q6h held. Hold Metoprolol XL - Coumadin on hold Diastolic CHF -stable - Lasix on hold Hyperlipidemia: - Continue Lipitor Renal: IVONNE : - Creatinine at 2.4 from 2.6 yesterday, on admission 1.3 - Lasix 40 mg BID Electrolytes: Hypokalemia: 4.2 Resolved GI/FEN: Recent GI bleed: - Continue Protonix 40 mg BID Poor appetite - Boost TID Constipation: bowel regimen ordered, dulcolax Endocrine: Hypothyroidism -Continue Synthroid 75 g PO qd DVT prophylaxis - SCDs, avoid chemical anticoagulation Tubes/drains: PICC to be placed today 2 peripheral [place] Full code Disposition: Monitor H&H Resident Physician Supervision Note: I interviewed and examined the patient. Discussed with Dr. Brown and agree with findings and plan as documented in the note. Any exceptions or clarifications are listed here: The patient's care was discussed on multidisciplinary rounds and I have reviewed the VS, labs, meds, I/O, imaging and other reports. She is much more awake and interactive today. The percocet has been helping her pain and her BP improved yesterday afternoon/evening. Her h/h is not quite stable yet and has had 1 unit PRBC over the last 24 hours. No BM. Appetite is a bit better. Cr improving and discussed PICC with family and patient. IV team tried to place PICC today and had difficulty threading the wire. Will not try again until tomorrow and patient refuses TLC in the neck. WBC a bit better and still on Zosyn for possible PNA. She has a R pleural effusion that may need to be tapped - she is now on O2 and is using incentive spirometer but will hold thoracentesis for now and continue diureses with lasix. PT/Ot ordered. Discussed option of transfer again with them. Questions answered. Documented By: Milly Hubbard Data Medications: Current Inpatient Medications Medications (Trade) Dose Ordered Sig/Angeles Route Start Time Stop Time Status Last Admin Dose Admin Ioversol (Optiray 320) 125 ml UD PRN IV 04/24/16 15:45 04/28/16 15:44 Atorvastatin Calcium (Lipitor Tab) 10 mg DAILY PO 04/25/16 09:00 05/25/16 08:59 04/27/16 08:40 10 MG Levothyroxine Sodium (Synthroid Tab) 75 mcg DAILYBB PO 04/25/16 06:00 05/25/16 06:59 04/27/16 05:39 75 MCG Metoprolol Succinate (Toprol Xl Tab) 50 mg DAILY PO 04/25/16 09:00 05/25/16 08:59 Future Hold Pantoprazole Sodium (Protonix Tab) 40 mg BID PO 04/24/16 21:00 05/24/16 20:59 04/27/16 08:41 40 MG Ropinirole HCl (Requip Tab) 1 mg DAILY PO 04/25/16 09:00 05/25/16 08:59 04/27/16 08:41 1 MG Cholecalciferol (Vitamin D Tab) 5,000 inter.unit DAILY PO 04/25/16 09:00 05/25/16 08:59 04/27/16 08:42 5,000 INTER.UNIT Al Hydrox/Mg Hydrox/Simethicone (Maalox Max Susp) 15 ml Q4H PRN PO 04/24/16 18:15 05/24/16 18:14 Magnesium Hydroxide (Milk Of Magnesia Susp) 30 ml Q12H PRN PO 04/24/16 18:15 05/24/16 18:14 Ondansetron HCl (Zofran Inj) 4 mg Q6H PRN IV 04/24/16 18:15 05/24/16 18:14 04/25/16 04:01 4 MG Polyethylene (Miralax Powder Packet) 17 gm DAILY PRN PO 04/24/16 18:15 05/24/16 18:14 Miscellaneous (Iv Fluids Completed) 1 ea PRN PRN N/A 04/24/16 21:45 04/24/17 21:44 Miscellaneous (Remove Lidoderm Patch) 1 ea DAILY@21 N/A 04/25/16 21:00 05/25/16 20:59 Lidocaine (Lidoderm Patch 5%) 1 patch DAILY TD 04/26/16 09:00 05/26/16 08:59 04/27/16 08:42 1 PATCH Enteral Nutritional Formula 1 can 1 can TID PO 04/25/16 14:00 05/25/16 13:59 04/27/16 08:40 1 CAN Piperacillin Sod/ Tazobactam Sod/ Dextrose (Zosyn Iv/D5 100ml) 115 ml @ 28.75 mls/ hr Q8H IV 04/26/16 22:00 05/03/16 21:59 04/27/16 05:38 28.75 MLS/HR Piperacillin Sod/ Tazobactam Sod (Consult) 1 ea UD PRN N/A 04/26/16 12:45 05/26/16 12:44 Morphine Sulfate 1 mg 1 mg Q2H PRN IV 04/26/16 18:45 05/10/16 18:44 Furosemide/Syringe (Lasix Inj/ Syringe) 4 ml @ 4 mls/min BID17 IV 04/27/16 09:00 05/27/16 08:59 04/27/16 08:40 4 MLS/MIN Senna/Docusate Sodium (Senokot S Tab) 1 tab BID PO 04/27/16 09:00 05/27/16 08:59 04/27/16 08:41 1 TAB Oxycodone/ Acetaminophen (Percocet 5-325mg Tab) 1 tab Q6 PO 04/27/16 12:00 05/11/16 11:59 I & O: 24-Hour Column 04/27/16 07:59 Intake Total 3005 ml Output Total 2030 ml Balance 975 ml Vital Signs: Date Time Temp Pulse Resp B/P Pulse Ox O2 Delivery O2 Flow Rate FiO2 04/27/16 10:00 85 20 100/65 92 Nasal Cannula 2.0 04/27/16 08:00 37.0 94 26 113/53 96 Nasal Cannula 2.0 04/27/16 08:00 96 Nasal Cannula 2.0 04/27/16 06:00 90 16 90/52 94 Nasal Cannula 2.0 04/27/16 06:00 90 90/52 04/27/16 04:00 Nasal Cannula 2.0 04/27/16 04:00 36.7 89 14 96/54 96 Nasal Cannula 2.0 04/27/16 02:00 90 14 85/56 94 Nasal Cannula 2.0 04/27/16 00:01 36.6 98 17 86/53 95 Nasal Cannula 2.0 04/27/16 00:00 98 86/53 04/26/16 23:59 Nasal Cannula 2.0 04/26/16 22:00 98 22 109/53 94 Nasal Cannula 2.0 04/26/16 20:00 Nasal Cannula 2.0 04/26/16 20:00 36.7 100 24 125/62 95 Nasal Cannula 2.0 04/26/16 18:07 89 24 98/67 94 Nasal Cannula 2.0 04/26/16 18:00 89 98/67 04/26/16 17:00 85 26 125/58 04/26/16 16:00 36.5 94 24 106/53 93 04/26/16 15:22 Room Air 04/26/16 15:00 91 24 107/53 94 04/26/16 14:00 82 27 116/51 96 04/26/16 13:00 85 29 126/58 95 04/26/16 12:00 36.7 95 25 115/72 95 04/26/16 12:00 Room Air 04/26/16 11:55 104 112/58 04/26/16 11:00 106 26 112/58 Laboratory Results: Last 24 Hours Test 04/26/16 11:11 04/26/16 11:42 04/26/16 12:54 04/26/16 14:49 Hemoglobin 9.4 g/dL 8.9 g/dL Hematocrit 26.4 % 24.7 % Bedside Glucose 158 mg/dl Urine Color YELLOW Urine Appearance CLEAR Urine pH 5.0 Urine Specific [place] 1.009 Urine Protein NEG Urine Glucose (UA) NEG Urine Ketones NEG Urine Occult Blood 1+ Urine Nitrite NEG Urine Bilirubin NEG Urine Urobilinogen NEG Urine Leukocyte Esterase NEG Urine WBC (Auto) 1-5 /hpf Urine RBC (Auto) 0-4 /hpf Urine Hyaline Casts (Auto) 10-30 /lpf Urine Epithelial Cells (Auto) 0-5 /lpf Urine Bacteria (Auto) NEG Urine Pathogenic Casts 0-3 GRANULAR CASTS /lpf Sodium Level 137 mmol/L Potassium Level 4.1 mmol/L Chloride Level 102 mmol/L Carbon Dioxide Level 25 mmol/L Anion Gap 10.0 mmol/L Blood Urea Nitrogen 39 mg/dl Creatinine 2.40 mg/dl Est Creatinine Clear Calc Drug Dose 22.2 ml/min Estimated GFR () 21.8 Estimated GFR (Non- 18.8 BUN/Creatinine Ratio 16.3 Random Glucose 159 mg/dl Calcium Level 8.0 mg/dl Test 04/26/16 16:29 04/26/16 20:54 04/27/16 05:15 04/27/16 09:18 Bedside Glucose 160 mg/dl Hemoglobin 8.8 g/dL 8.1 g/dL 8.1 g/dL Hematocrit 24.3 % 23.0 % 23.1 % White Blood Count 30.98 K/uL Red Blood Count 2.71 M/uL Mean Corpuscular Volume 84.9 fL Mean Corpuscular Hemoglobin 29.9 pg Mean Corpuscular Hemoglobin Concent 35.2 g/dl Platelet Count 150 K/uL Mean Platelet Volume 10.3 fL Neutrophils (%) (Auto) 84.7 % Lymphocytes (%) (Auto) 6.7 % Monocytes (%) (Auto) 6.5 % Eosinophils (%) (Auto) 0.1 % Basophils (%) (Auto) 0.2 % Neutrophils # (Auto) 26.22 K/uL Lymphocytes # (Auto) 2.09 K/uL Monocytes # (Auto) 2.02 K/uL Eosinophils # (Auto) 0.03 K/uL Basophils # (Auto) 0.05 K/uL RDW Standard Deviation 54.2 fL RDW Coefficient of Variation 17.9 % Immature Granulocyte % (Auto) 1.8 % Immature Granulocyte # (Auto) 0.57 K/uL Nucleated RBC Absolute Count (auto) 0.32 K/uL Nucleated Red Blood Cells % 1.0 % Polychromasia 1+ Prothrombin Time 11.5 SECONDS Prothromb Time International Ratio 1.1 Activated Partial Thromboplast Time 25.0 SECONDS Partial Thromboplastin Ratio 1.0 Sodium Level 139 mmol/L Potassium Level 4.2 mmol/L Chloride Level 103 mmol/L Carbon Dioxide Level 27 mmol/L Anion Gap 9.0 mmol/L Blood Urea Nitrogen 35 mg/dl Creatinine 2.00 mg/dl Est Creatinine Clear Calc Drug Dose 26.6 ml/min Estimated GFR () 27.2 Estimated GFR (Non- 23.5 BUN/Creatinine Ratio 17.6 Random Glucose 119 mg/dl Calcium Level 8.0 mg/dl Phosphorus Level 3.3 mg/dl Magnesium Level 2.3 mg/dl
[2016-04-27 15:34] LABS: HEMATOCRIT 22.5 % (37-47)
[2016-04-27 21:27] LABS: HEMATOCRIT 22.6 % (37-47)
[2016-04-27 22:05] LABS: BUN/CREATININE RATIO 17.1 (10-20); CALCIUM 8.3 mg/dl (8.5-10.1); CREATININE 1.5 mg/dl (0.60-1.20); POTASSIUM 3.4 mmol/L (3.5-5.1)
[2016-04-27 22:18] LABS: PHOSPHORUS 2.3 mg/dl (2.5-4.9)
[2016-04-28] VITALS (22 sets, daily range): BP systolic 81–125; BP diastolic 40–80; PULSE 84–106; TEMP 36.7–37.1; O2SAT 93–100
[2016-04-28] MEDS: OXYCODONE/ACETAMINOPHEN 5-325 TAB PO SCH ×4 (05:08→23:30)
[2016-04-28] MEDS: LEVOTHYROXINE 75 MCG TAB PO SCH (05:09)
[2016-04-28] MEDS: PIPERACILL/TAZOBAC IV 3.375 GM in DEXTROSE 5% 100ML 100 ML IV SCH ×3 (05:09→21:29)
[2016-04-28 06:07] LABS: BASO % 0.1 %; BASO ABS # 0.02 K/uL (0-0.2); EOS % 0.7 %; IG% 1.5 %; LYMPH % 9.2 %; LYMPH ABS # 2.01 K/uL (1.2-3.4); MEAN CELL VOLUME 85.3 fL (80-100); MEAN CORPUSCULAR HEMOGLOBIN 29.5 pg (25-34); MEAN CORPUSCULAR HGB CONC 34.5 g/dl (32-36); MEAN PLATELET VOLUME 10.3 fL (7.4-10.4); MONO % 8.6 %; NEUT % 79.9 %; PLATELET COUNT 175 K/uL (130-400); RED BLOOD COUNT 2.58 M/uL (4.2-5.4); WHITE BLOOD COUNT 21.74 K/uL (4.8-10.8)
[2016-04-28 06:34] LABS: CALCIUM 8.2 mg/dl (8.5-10.1); CREATININE 1.4 mg/dl (0.60-1.20); MAGNESIUM 2.1 mg/dl (1.8-2.4); POTASSIUM 3.2 mmol/L (3.5-5.1)
[2016-04-28 06:40] LABS: COMPLETE YES; POLYCHROMASIA 1+
[2016-04-28] MEDS ORDERED: POTASSIUM PHOS 3 MMOL/1 ML INFUSION IV STA (07:29)
[2016-04-28] MEDS ORDERED: POTASSIUM CHLORIDE 10 MEQ TABCR PO STA (07:29)
[2016-04-28] MEDS ORDERED: POTASSIUM PHOSPHATE INJ 15 MMOL in SODIUM CHLORIDE 0.9% 250ML 250 ML IV SCH (08:00)
--- NOTE | 2016-04-28 09:25 | DIAGNOSTIC IMAGING REPORT ---
CHEST ONE VIEW PORTABLE CLINICAL HISTORY: Pleural effusion. Recent PICC catheter placement. COMPARISON STUDY: 04/27/2016 FINDINGS: The heart remains mildly enlarged. There are bilateral subpulmonic pleural effusions. 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 There is been interval placement right-sided PICC catheter. The tip projects over the distal aspect the superior vena cava. There are persistent right basilar airspace opacities.[ IMPRESSION: Interval placement of a right-sided PICC catheter. The tip projects over the superior vena cava. Electronically signed by: Aman De Jesus M.D. 04/28/2016 9:24 AM Dictated Date/Time: 04/28/2016 9:23 AM
[2016-04-28] MEDS: ATORVASTATIN 10 MG TAB PO SCH (09:38)
[2016-04-28] MEDS: PANTOprazole SOD 40 MG TAB PO SCH ×2 (09:39→20:22)
[2016-04-28] MEDS: LIDODERM (LIDOCAINE) PATCH 5% TD SCH (09:39)
[2016-04-28] MEDS: DOCUSATE SODIUM/SENNA 50/8.6MG TAB PO SCH ×2 (09:39→20:22)
[2016-04-28] MEDS: CHOLECALCIFEROL 1000 INTER.UNIT TAB PO SCH (09:39)
[2016-04-28] MEDS: ROPINIROLE HCL 1 MG TAB PO SCH (09:39)
[2016-04-28] MEDS: BOOST VANILLA PO SCH ×6 (09:49→20:21)
[2016-04-28] MEDS: FUROSEMIDE INJ 40 MG in SYRINGE 0 ML IV SCH ×2 (09:50→17:02)
[2016-04-28 11:45] LABS: HEMATOCRIT 23.9 % (37-47)
[2016-04-28] MEDS ORDERED: POLYETHYLENE (MIRALAX) 17 GM PACK ONE (12:19)
[2016-04-28] MEDS ORDERED: POLYETHYLENE (MIRALAX) 17 GM PACK PO ONE (12:30)
--- NOTE | 2016-04-28 14:18 | Progress Note ---
Subjective Date of Service: Apr 28, 2016. Subjective Pt evaluation today including: conversation w/ patient, conversation w/ family , physical exam, chart review, lab review, review of studies, review of inpatient medication list Problem List Medical Problems: (1) Bilateral pneumonia Status: Acute (2) CHF (congestive heart failure) Status: Acute (3) Elevated INR Status: Acute (4) Hematoma of right iliopsoas muscle Status: Acute (5) Hypoxia Status: Acute (6) Supratherapeutic INR Status: Acute Review of Systems Constitutional: No chills, No fever Respiratory: No cough, No dyspnea on exertion, No shortness of breath, No sputum, No wheezing Cardiac: No chest pain, No orthopnea Abdomen: No constipation, No diarrhea, No nausea, No pain, No vomiting Musculoskeletal: No joint pain, No muscle pain Female : No dysuria, No urinary frequency Psychiatric: No anxiety, No depression symptoms Objective Vital Signs Date Time Temp Pulse Resp B/P Pulse Ox O2 Delivery O2 Flow Rate FiO2 04/28/16 12:00 95 Room Air 04/28/16 12:00 100 19 100/44 97 Room Air 04/28/16 10:00 96 20 125/73 97 Nasal Cannula 2.0 04/28/16 08:00 100 Nasal Cannula 2.0 04/28/16 08:00 36.9 88 20 104/52 100 Nasal Cannula 04/28/16 06:00 36.7 88 16 84/41 100 04/28/16 05:00 84 22 110/51 100 04/28/16 04:07 100 Nasal Cannula 2.0 04/28/16 04:00 95 22 99/50 100 04/28/16 03:00 95 22 105/57 100 04/28/16 02:00 91 23 101/51 97 04/28/16 01:00 98 20 107/50 100 04/28/16 00:10 100 Nasal Cannula 2.0 04/28/16 00:00 37.1 92 22 98/49 100 04/27/16 23:00 96 21 99/54 100 04/27/16 22:00 95 22 112/64 100 04/27/16 21:00 36.6 98 31 127/66 100 04/27/16 20:00 100 Nasal Cannula 2.0 04/27/16 20:00 91 21 107/48 100 04/27/16 19:00 96 23 104/51 100 04/27/16 18:00 88 22 124/64 100 Nasal Cannula 2.0 04/27/16 16:00 96 Nasal Cannula 2.0 04/27/16 16:00 36.8 108 32 103/52 97 Nasal Cannula 2.0 Physical Exam General Appearance: WD/WN, no apparent distress Neck: supple, no adenopathy Respiratory/Chest: lungs clear, normal breath sounds Cardiovascular: no edema, no gallop Abdomen: non tender, soft Neurologic/Psychiatric: alert, normal mood/affect Laboratory Results Last 24 Hours Test 04/27/16 15:12 04/27/16 21:20 04/28/16 05:20 04/28/16 09:50 Hemoglobin 7.9 g/dL 8.0 g/dL 7.6 g/dL g/dL Hematocrit 22.5 % 22.6 % 22.0 % % Sodium Level 137 mmol/L 137 mmol/L Potassium Level 3.4 mmol/L 3.2 mmol/L Chloride Level 99 mmol/L 99 mmol/L Carbon Dioxide Level 26 mmol/L 28 mmol/L Anion Gap 12.0 mmol/L 10.0 mmol/L Blood Urea Nitrogen 26 mg/dl 24 mg/dl Creatinine 1.50 mg/dl 1.40 mg/dl Est Creatinine Clear Calc Drug Dose 36.5 ml/min 39.2 ml/min Estimated GFR () 38.5 41.9 Estimated GFR (Non- 33.3 36.2 BUN/Creatinine Ratio 17.1 17.0 Random Glucose 121 mg/dl 104 mg/dl Calcium Level 8.3 mg/dl 8.2 mg/dl Phosphorus Level 2.3 mg/dl 2.0 mg/dl Magnesium Level 2.0 mg/dl 2.1 mg/dl White Blood Count 21.74 K/uL Red Blood Count 2.58 M/uL Mean Corpuscular Volume 85.3 fL Mean Corpuscular Hemoglobin 29.5 pg Mean Corpuscular Hemoglobin Concent 34.5 g/dl Platelet Count 175 K/uL Mean Platelet Volume 10.3 fL Neutrophils (%) (Auto) 79.9 % Lymphocytes (%) (Auto) 9.2 % Monocytes (%) (Auto) 8.6 % Eosinophils (%) (Auto) 0.7 % Basophils (%) (Auto) 0.1 % Neutrophils # (Auto) 17.36 K/uL Lymphocytes # (Auto) 2.01 K/uL Monocytes # (Auto) 1.87 K/uL Eosinophils # (Auto) 0.15 K/uL Basophils # (Auto) 0.02 K/uL RDW Standard Deviation 52.5 fL RDW Coefficient of Variation 17.3 % Immature Granulocyte % (Auto) 1.5 % Immature Granulocyte # (Auto) 0.33 K/uL Nucleated RBC Absolute Count (auto) 0.25 K/uL Nucleated Red Blood Cells % 1.2 % Polychromasia 1+ Total Bilirubin 2.1 mg/dl Direct Bilirubin 1.0 mg/dl Aspartate Amino Transf (AST/SGOT) 48 U/L Alanine Aminotransferase (ALT/SGPT) 50 U/L Alkaline Phosphatase 73 U/L Total Protein 5.8 gm/dl Albumin 2.9 gm/dl Test 04/28/16 11:30 Hemoglobin 8.2 g/dL Hematocrit 23.9 % Assessment and Plan 75 y/o female with a history of A. fib, pacemaker placement, chronic diastolic CHF, and hypothyroidism who presented to the ED with lower back pain radiating down her right lower extremity as well as numbness and tingling. The patient had just been discharged from the hospital on 04/23 for a GI bleed and pulmonary edema. Per family, the patient had been feeling well at discharge. The following day the patient started to complain of pain, and she had a loss of appetite. In the ED she was found to have a right iliopsoas hematoma measuring 6 x 8 x 12 cm. The patient has a history of being on Coumadin for the last 12 years due to her A. fib and has not had complications in the past. 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 Denies falls/trauma -Admitted to ICU -Coumadin DC'd -Patient given 2 units of FFP and total of 5 mg Vitamin K -INR 1.1 on 04/27 -Regular vascular checks -Repeat CT abd pelvis on 04/26 - Interval increase in size in the 19 x 15 cm right retroperitoneal/iliopsoas hematoma. There is also a small amount intraperitoneal extension of the hemorrhage surrounding the liver. Acute blood loss anemia secondary to hematoma--ongoing -Hemoglobin 10.6 upon arrival. Repeat Hgb 8.2 a few hours later -Patient given 2 units of packed red blood cells -Repeat hemoglobin 9.6 on 04/25. Later that evening, Hgb dropped to 7.3. Pt received another 2 units PRBC. Hgb up to 8.4, but pt given 1 more unit PRBC morning of 04/26 -Stabilizing in low 8s at this time. Would avoid further transfusions if possible Hypotension--Ongoing. BP with SBP in 90s-100s -Patient received blood products as above Leukocytosis--Ongoing -WBC 14.66 upon arrival. Recently received steroids -Repeat WBC 21.86 on 04/25. Patient has been afebrile while inpatient -WBC worsened on 04/27 to 30.98 -Blood cultures x 2 and urine culture neg -Lactic acid 2.6, repeat lactic acid 1.9 -CXR 04/26 shows small right pleural effusion, bilateral atelectasis -CXR 04/27 shows slight increase in right pleural effusion and pulmonary vascular congestion -CT abd/pelvis shows increase in size of hematoma and intraperitoneal extension around liver. Small right pleural effusion. RLL patchy airspace opacities atelectasis vs PNA. -Continue Zosyn IV -Pt still afebrile. If develops fevers, will add vancomycin IV Acute kidney injury likely secondary to hypoperfusion/hypotension--baseline creatinine around 1.0. Improving -Creatinine 1.3 upon arrival -Creatinine on 04/25 elevated to 1.8 -Creatinine 2.6 on 04/26 -Repeat creatinine 2.0 on 04/27 -Continue to monitor A-fib--patient has been tachycardic with heart rate in 110s. [address] -Continue metoprolol succinate 50 mg PO qd -Coumadin held as above Chronic diastolic CHF--stable -Continue metoprolol as above -Repeat CXR 04/27 shows pulmonary edema and increase in pleural effusion -Lasix per ICU Hypothyroidism -Continue Synthroid 75 g PO qd DVT prophylaxis -Hold chemical prophylaxis due to bleeding -EDSON robledo and Kimo Code Status -Level I, FULL RESUSCITATION STATUS
--- NOTE | 2016-04-28 14:28 | CRITICAL CARE PROGRESS NOTE ---
DATE: 04/28/2016 SUBJECTIVE: There were no acute events overnight. The patient was out of bed to a chair today. She tried to have a bowel movement, but has not been successful yet. She complains of 4/10 abdominal pain, but feels overall it is a little bit better. Her H\H this morning was 7.6 with a follow up this afternoon at 8.2. She is eating a little bit more and is generally weak and tired. She denies shortness of breath. PHYSICAL EXAMINATION: VITAL SIGNS: Maximum temperature 37.1, heart rate 88-98, respiratory rate 16-22, blood pressure 84-110/50, oxygen saturation 99% on 2 liters nasal cannula. 24-hour fluid balance negative 1.5 liters. GENERAL: She is awake, alert and looks tired. LUNGS: Have some rales with decreased breath sounds in the right base. No rhonchi or wheezes. HEART: Irregularly irregular. No murmurs. ABDOMEN: Limited due to her seated position, but seems about the same size. There is tenderness over the right side upper quadrant, middle and lower quadrant and overall the abdomen is slightly firm. Bowel sounds hypoactive. EXTREMITIES: Warm with trace to 1+ edema in the hands and feet. LABORATORY DATA: White blood cell count 21.7, hemoglobin 7.6, recheck at 8.2; platelets 175. Sodium 137, potassium 3.2, chloride 99, CO2 of 28, BUN 24, creatinine 1.4, calcium 8.2, phosphorous 2.0. Total bilirubin 2.1, direct bilirubin 1.0. total protein 5.8, albumin 2.9. Microbiology data was reviewed. Portable chest x-ray was reviewed and shows bilateral pleural effusions, right greater than left. MEDICATIONS: Maalox, Lipitor, vitamin D, Boost, Lasix, levothyroxine, Lidoderm patch, milk of magnesia, morphine, Zofran, Percocet, Protonix, Zosyn day 2, MiraLax and senna. IMPRESSION: 1. Acute sponatneous retroperitoneal/iliopsoas hematoma while on Lovenox and Coumadin. Status post 5 units of packed red blood cells and 2 units fresh frozen plasma. She received 10 units of vitamin K. Her last CT scan was done on April 26. which showed an increasing size of the hematoma. 2. Acute anemia of blood loss, her blood counts seem to be stabilizing. She has not required transfusion in over 48 hours. 3. Acute kidney injury secondary to ATN/hypotension continues to improve. She is diuresing well with BID lasix 40mg. 4. Leukocytosis also continues to improve. No definite source of infection; however, she is being covered broadly for a possible pneumonia. This could be due to the hematoma itself. 5. Right pleural effusion. Consider thoracentesis. 6. Chronic atrial fibrillation with adequate rate control. 7. History of pacemaker placement. 8. History of recent gastrointestinal bleed. 9. Hypothyroidism. 10. History of restless legs syndrome. 11. Elevated liver function tests, improving. 12. Constipation PLAN: 1. Neuro: Continue Percocet for pain with morphine for breakthrough. Continue outpatient dose of ropinirole. 2. Heme: Continue serial blood counts. Obviously hold any anticoagulants. SCDs for DVT prophylaxis. 3. Pulmonary: Continue to encourage incentive spirometry. She may benefit from a thoracentesis. 4. Cardiovascular: Continue to hold Lopressor. Diuresis with b.i.d. Lasix. Eventually she will require her long-acting metoprolol again. 5. GI: Continue GI prophylaxis and encourage p.o. Nutritional supplements. Follow LFT's. Miralax is now scheduled rather than PRN and begin colace. 6. Renal: Continue diuresis with Lasix and replete electrolytes. 7. Endocrine: Levothyorxine for hypothyroidism. 8. Miscellaneous: Physical therapy and occupational therapy have been ordered. She finally has a picc line. Her care was discussed in detail with her family. I think she will be stable for transfer to the floor soon. AYLIN
[2016-04-28 18:13] LABS: HEMATOCRIT 21.6 % (37-47)
[2016-04-28 18:31] LABS: BUN/CREATININE RATIO 19.2 (10-20); CALCIUM 8.2 mg/dl (8.5-10.1); CREATININE 1.1 mg/dl (0.60-1.20); POTASSIUM 3.6 mmol/L (3.5-5.1)
[2016-04-28] MEDS: POLYETHYLENE (MIRALAX) 17 GM PACK PO SCH (20:21)
[2016-04-28] MEDS ORDERED: NURSING VERBAL MED ORDER ONE (21:15)
[2016-04-28] MEDS ORDERED: MAGNESIUM SULFATE 1GM / D5W 1 GM in PREMIXED IN D5W 100 ML IV STA (21:20)
[2016-04-28] MEDS ORDERED: POTASSIUM CHLORIDE 20 MEQ TABCR PO STA (21:20)
[2016-04-29] VITALS (29 sets, daily range): BP systolic 74–137; BP diastolic 39–72; PULSE 78–102; TEMP 36.5–37.1; O2SAT 88–98
[2016-04-29] MEDS: PIPERACILL/TAZOBAC IV 3.375 GM in DEXTROSE 5% 100ML 100 ML IV SCH ×3 (05:28→22:45)
[2016-04-29] MEDS: OXYCODONE/ACETAMINOPHEN 5-325 TAB PO SCH ×3 (05:28→18:47)
[2016-04-29] MEDS: LEVOTHYROXINE 75 MCG TAB PO SCH (05:29)
[2016-04-29 07:38] LABS: BASO % 0.2 %; BASO ABS # 0.03 K/uL (0-0.2); EOS % 1.3 %; HEMATOCRIT 25.7 % (37-47); IG% 1.4 %; LYMPH % 11.3 %; LYMPH ABS # 1.88 K/uL (1.2-3.4); MEAN CELL VOLUME 89.2 fL (80-100); MEAN CORPUSCULAR HEMOGLOBIN 30.2 pg (25-34); MEAN CORPUSCULAR HGB CONC 33.9 g/dl (32-36); MEAN PLATELET VOLUME 10.3 fL (7.4-10.4); MONO % 8.1 %; NEUT % 77.7 %; PLATELET COUNT 198 K/uL (130-400); RED BLOOD COUNT 2.88 M/uL (4.2-5.4); WHITE BLOOD COUNT 16.66 K/uL (4.8-10.8)
--- NOTE | 2016-04-29 07:47 | DIAGNOSTIC IMAGING REPORT ---
SINGLE VIEW CHEST CLINICAL HISTORY: Pleural effusion. FINDINGS: An AP, portable, upright chest radiograph is compared to chest x-ray and chest CT dated 04/28/2016. Correlation is made with chest CT dated 04/19/2016. The examination is degraded by portable technique and patient rotation. A 2-lead cardiac pacemaker is unchanged in position. A right PICC line is unchanged. The heart is enlarged and there is atherosclerotic calcification of the thoracic aorta. The pulmonary vasculature is noncongested. There is chronic elevation of the right hemidiaphragm and chronic interstitial thickening. There is a small right pleural effusion with right basilar consolidation. No pneumothorax is seen. The skeletal structures are osteopenic. Degenerative change and scoliosis are noted throughout the thoracic spine. IMPRESSION: 1. Cardiomegaly and cardiac pacemaker. There is no radiographic evidence of congestive failure. 2. Small right pleural effusion with right basilar consolidation. This likely represents atelectasis. Clinical correlation will be required. Electronically signed by: Troy Platt M.D. 04/29/2016 7:46 AM Dictated Date/Time: 04/29/2016 7:44 AM
[2016-04-29 08:08] LABS: CALCIUM 8.1 mg/dl (8.5-10.1); CREATININE 1.1 mg/dl (0.60-1.20); MAGNESIUM 2.2 mg/dl (1.8-2.4); POTASSIUM 4.1 mmol/L (3.5-5.1)
[2016-04-29 08:17] LABS: COMPLETE YES; POLYCHROMASIA 1+
[2016-04-29] MEDS: BOOST VANILLA PO SCH ×6 (08:52→20:17)
[2016-04-29] MEDS: LIDODERM (LIDOCAINE) PATCH 5% TD SCH (08:52)
[2016-04-29] MEDS: ATORVASTATIN 10 MG TAB PO SCH (08:52)
[2016-04-29] MEDS: DOCUSATE SODIUM/SENNA 50/8.6MG TAB PO SCH ×2 (08:53→20:13)
[2016-04-29] MEDS: POLYETHYLENE (MIRALAX) 17 GM PACK PO SCH ×2 (08:53→20:13)
[2016-04-29] MEDS: CHOLECALCIFEROL 1000 INTER.UNIT TAB PO SCH (08:53)
[2016-04-29] MEDS: PANTOprazole SOD 40 MG TAB PO SCH ×2 (08:53→20:13)
[2016-04-29] MEDS: FUROSEMIDE INJ 40 MG in SYRINGE 0 ML IV SCH (08:55)
[2016-04-29] MEDS ORDERED: BISACODYL 10 MG SUPP PR PRN (09:00)
--- NOTE | 2016-04-29 12:45 | DIAGNOSTIC IMAGING REPORT ---
ULTRASOUND OF THE PLEURAL SPACES CLINICAL HISTORY: Pleural effusion. COMPARISON STUDY: Chest x-ray dated 04/29/2016. FINDINGS: Real-time grayscale sonography of the pleural spaces is performed. No left pleural effusion is identified. There is a small right pleural effusion with associated atelectasis. This has an estimated volume of 262 cc. This was not marked for bedside thoracentesis. IMPRESSION: Small right pleural effusion as above. Electronically signed by: Troy Platt M.D. 04/29/2016 12:44 PM Dictated Date/Time: 04/29/2016 12:43 PM
[2016-04-29 13:22] LABS: HEMATOCRIT 28.8 % (37-47)
--- NOTE | 2016-04-29 13:27 | CRITICAL CARE PROGRESS NOTE ---
DATE: 04/29/2016 HISTORY OF PRESENT ILLNESS: This is a 75-year-old woman who presented to the Emergency Department on April 24, complaining of right leg and back pain. She was discharged from the hospital on April 23 after admission for acute on chronic diastolic heart failure as well as GI bleed. She has also been recently treated for pneumonia. In the ED on the , she underwent CT scan of her abdomen, showing an iliopsoas hematoma. She had been on discharged the day prior on Coumadin and Lovenox and received 5 units of vitamin K and 2 units of fresh frozen plasma upon readmission. While in the talent sourcer care unit, as of today, she has received 6 units of packed red blood cells. Followup CT scan on April 26, which was done secondary to a leukocytosis of 38,000, revealed enlarging hematoma involving the retroperitoneum with some blood around the liver. Right pleural effusion was identified at that time as well. She went into acute renal failure, which has nearly resolved. This was likely secondary to ATN from hypotension. She has been off anticoagulants and had been anticoagulated secondary to her chronic atrial fibrillation. There were no acute events overnight other than she received 1 unit of packed red blood cells for a hemoglobin of 7.2. Followup hemoglobin was 8.7. Her last transfusion prior to today was greater than 48 hours earlier. She reports mild shortness of breath with activity. She was walking in the ICU with a walker and the physical therapist today. Her right lower extremity is numb and mildly weak according to her. Her pain in her back and leg is improving. She finally had a bowel movement this morning. Her appetite is very poor and she is drinking Boost regularly. OBJECTIVE: VITAL SIGNS: Temperature 37.1, heart rate 80s, respiratory rate 16-21, blood pressure 90-134/50s-60s, and oxygen saturation is 97% on room air. 24-hour fluid balance is -1.9 liters. GENERAL: She is awake, alert and sitting in a chair. LUNGS: Have very decreased breath sounds throughout. No sounds in the right base. No rhonchi or wheezes. HEART: Irregular. No murmurs. ABDOMEN: Limited due to her seated position, but it is moderately distended, slightly firm, less tender, and active bowel sounds. SKIN: Shows ecchymosis over the right flank. EXTREMITIES: Slightly cool with trace pretibial edema. LABORATORY DATA: White blood cell count 16.6, hemoglobin 8.7, hematocrit 25.7, and platelets 198. Sodium 139, potassium 4.1, chloride 102, CO2 of 29, BUN 18, and creatinine 1.1. Portable chest x-ray from this morning was reviewed. She has cardiomegaly and a pacemaker. Small right pleural effusion with right basilar consolidation, likely atelectasis. MEDICATIONS AND INFUSIONS: Maalox, Lipitor, Dulcolax, vitamin D, Boost, Lasix, Synthroid, Lidoderm patch, milk of magnesia, morphine, Percocet, Protonix, Zosyn day #3, MiraLax, and senna. Microbiology data has been reviewed. Blood cultures 04/26, no growth. Urine cultures 04/26, no growth. IMPRESSION: 1. Acute, spontaneous retroperitoneal/iliopsoas hematoma while on anticoagulants. Status post 6 units packed red blood cells, 2 units fresh frozen plasma and 10 units of vitamin K. Prior to her transfusion earlier this morning, she had gone hematocrit 48 hours without one. Clinically, her hemodynamics have improved and her pain is better controlled. 2. Acute anemia of blood loss. 3. Acute kidney injury secondary to acute tubular necrosis, nearly resolved. 4. Leukocytosis. No clear infectious etiology. It is improving and may be secondary to the hematoma itself. 5. Small right pleural effusion. 6. Chronic atrial fibrillation, not presently anticoagulated. 7. History of pacemaker placement. 8. Recent GI evaluation for bleeding, likely hemorrhoidal. 9. History of hypothyroidism. 10. Elevated liver function tests, improving. 11. History of restless legs syndrome. 12. Constipation, improved. PLAN: NEUROLOGIC: Continue Percocet and discontinue morphine. Continue outpatient dose of ropinirole. HEME: We are still checking blood counts every 6 hours. Although she received a unit of blood this morning, her count increased greater than what I would have expected. Considerations were made for transfer for possible embolization earlier in her stay; however, she was also in renal failure at that time and has since stabilized. PULMONARY: Continue incentive spirometry. I have ordered an ultrasound of the chest for possible thoracentesis. CARDIOVASCULAR: Decrease Lasix to 40 mg IV daily and resume b.i.d. metoprolol. GASTROINTESTINAL: Encourage nutritional supplements and p.o. intake. Continue GI prophylaxis. Continue bowel regimen. RENAL: Replete electrolytes and continue diuresis. ENDOCRINE: She is getting levothyroxine. INFECTIOUS DISEASE: Continue Zosyn and consider stopping after 5 days. Treating for possible pneumonia. MISCELLANEOUS: Physical therapy and occupational therapy has been ordered. PICC line was placed on April 28. Her care was discussed in detail with her family, who was at the bedside. She may be stable for transfer to the floor today. AYLIN
--- NOTE | 2016-04-29 13:49 | Progress Note ---
Subjective Date of Service: Apr 29, 2016. Subjective Pt evaluation today including: conversation w/ patient, physical exam, chart review, lab review, review of studies, review of inpatient medication list Problem List Medical Problems: (1) Bilateral pneumonia Status: Acute (2) CHF (congestive heart failure) Status: Acute (3) Elevated INR Status: Acute (4) Hematoma of right iliopsoas muscle Status: Acute (5) Hypoxia Status: Acute (6) Supratherapeutic INR Status: Acute Review of Systems Constitutional: No chills, No fever Respiratory: No cough, No dyspnea on exertion, No shortness of breath, No sputum, No wheezing Cardiac: No chest pain, No orthopnea Abdomen: No constipation, No diarrhea, No nausea, No pain, No vomiting Musculoskeletal: No joint pain, No muscle pain Female : No dysuria, No urinary frequency Psychiatric: No anxiety, No depression symptoms Objective Vital Signs Date Time Temp Pulse Resp B/P Pulse Ox O2 Delivery O2 Flow Rate FiO2 04/29/16 12:24 102 98 04/29/16 12:00 Room Air 04/29/16 12:00 36.6 90 18 134/62 97 Room Air 04/29/16 10:00 95 24 119/54 95 Room Air 04/29/16 08:00 Room Air 04/29/16 08:00 36.8 88 25 99/39 97 Room Air 04/29/16 06:16 37.0 82 21 103/42 97 04/29/16 06:15 87 19 96 04/29/16 06:01 81 19 84/50 93 04/29/16 06:01 81 19 84/50 93 04/29/16 06:00 37.0 86 16 94 04/29/16 06:00 86 16 91/52 94 04/29/16 05:46 78 21 91/52 97 04/29/16 05:45 84 22 96 04/29/16 05:31 84 33 118/63 97 04/29/16 05:30 85 19 88 04/29/16 05:16 88 27 104/59 98 04/29/16 05:15 88 20 95 04/29/16 05:01 86 26 101/57 96 04/29/16 05:00 37.0 85 29 103/55 95 04/29/16 04:46 83 31 103/55 95 04/29/16 04:44 85 26 97 04/29/16 04:33 89 23 102/51 95 04/29/16 04:31 37.0 89 23 74/51 95 04/29/16 04:29 87 33 95 04/29/16 04:19 94 Room Air 2.0 04/29/16 04:16 88 25 97/54 95 04/29/16 04:14 36.9 91 24 95 04/29/16 01:00 90 21 100/49 95 04/29/16 00:00 37.1 92 23 106/42 96 04/29/16 00:00 92 23 106/42 96 04/29/16 00:00 94 Room Air 2.0 04/28/16 23:00 90 25 101/47 97 04/28/16 22:00 91 22 102/55 96 04/28/16 21:00 96 25 81/56 96 04/28/16 20:50 94 Room Air 2.0 04/28/16 20:00 36.9 96 30 108/40 93 04/28/16 19:01 90 18 105/42 93 04/28/16 19:00 90 21 94 04/28/16 18:00 86 20 123/59 94 Room Air 04/28/16 16:00 106 22 108/76 95 Room Air 04/28/16 16:00 95 Room Air 04/28/16 14:00 85 24 122/80 96 Room Air Physical Exam General Appearance: WD/WN, no apparent distress Neck: supple, no adenopathy Respiratory/Chest: lungs clear, normal breath sounds Cardiovascular: no gallop, no JVD Abdomen: non tender, soft Neurologic/Psychiatric: alert, oriented x 3 Laboratory Results Last 24 Hours Test 04/28/16 17:56 04/28/16 22:50 04/29/16 07:31 04/29/16 13:15 Hemoglobin 7.5 g/dL 7.2 g/dL 8.7 g/dL 9.7 g/dL Hematocrit 21.6 % 21.0 % 25.7 % 28.8 % Sodium Level 137 mmol/L 139 mmol/L Potassium Level 3.6 mmol/L 4.1 mmol/L Chloride Level 98 mmol/L 102 mmol/L Carbon Dioxide Level 29 mmol/L 29 mmol/L Anion Gap 10.0 mmol/L 8.0 mmol/L Blood Urea Nitrogen 21 mg/dl 18 mg/dl Creatinine 1.10 mg/dl 1.10 mg/dl Est Creatinine Clear Calc Drug Dose 49.8 ml/min 49.8 ml/min Estimated GFR () 56.1 56.1 Estimated GFR (Non- 48.4 48.4 BUN/Creatinine Ratio 19.2 16.0 Random Glucose 139 mg/dl 95 mg/dl Calcium Level 8.2 mg/dl 8.1 mg/dl Magnesium Level 2.0 mg/dl 2.2 mg/dl White Blood Count 16.66 K/uL Red Blood Count 2.88 M/uL Mean Corpuscular Volume 89.2 fL Mean Corpuscular Hemoglobin 30.2 pg Mean Corpuscular Hemoglobin Concent 33.9 g/dl Platelet Count 198 K/uL Mean Platelet Volume 10.3 fL Neutrophils (%) (Auto) 77.7 % Lymphocytes (%) (Auto) 11.3 % Monocytes (%) (Auto) 8.1 % Eosinophils (%) (Auto) 1.3 % Basophils (%) (Auto) 0.2 % Neutrophils # (Auto) 12.95 K/uL Lymphocytes # (Auto) 1.88 K/uL Monocytes # (Auto) 1.35 K/uL Eosinophils # (Auto) 0.22 K/uL Basophils # (Auto) 0.03 K/uL RDW Standard Deviation 52.0 fL RDW Coefficient of Variation 16.5 % Immature Granulocyte % (Auto) 1.4 % Immature Granulocyte # (Auto) 0.23 K/uL Nucleated RBC Absolute Count (auto) 0.11 K/uL Nucleated Red Blood Cells % 0.7 % Polychromasia 1+ Total Bilirubin 1.9 mg/dl Direct Bilirubin 0.7 mg/dl Aspartate Amino Transf (AST/SGOT) 41 U/L Alanine Aminotransferase (ALT/SGPT) 43 U/L Alkaline Phosphatase 73 U/L Total Protein 5.8 gm/dl Albumin 2.7 gm/dl Assessment and Plan 75 y/o female with a history of A. fib, pacemaker placement, chronic diastolic CHF, and hypothyroidism who presented to the ED with lower back pain radiating down her right lower extremity as well as numbness and tingling. The patient had just been discharged from the hospital on 04/23 for a GI bleed and pulmonary edema. Per family, the patient had been feeling well at discharge. The following day the patient started to complain of pain, and she had a loss of appetite. In the ED she was found to have a right iliopsoas hematoma measuring 6 x 8 x 12 cm. The patient has a history of being on Coumadin for the last 12 years due to her A. fib and has not had complications in the past. 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 Denies falls/trauma -Admitted to ICU -Coumadin DC'd -Patient given 2 units of FFP and total of 5 mg Vitamin K -INR 1.1 on 04/27 -Regular vascular checks -Repeat CT abd pelvis on 04/26 - Interval increase in size in the 19 x 15 cm right retroperitoneal/iliopsoas hematoma. There is also a small amount intraperitoneal extension of the hemorrhage surrounding the liver. -Pain resolved, more hemodynamically stable, OK to transfer to [facility] Acute blood loss anemia secondary to hematoma--ongoing -Hemoglobin 10.6 upon arrival. Repeat Hgb 8.2 a few hours later -Patient given 2 units of packed red blood cells -Repeat hemoglobin 9.6 on 04/25. Later that evening, Hgb dropped to 7.3. Pt received another 2 units PRBC. Hgb up to 8.4, but pt given 1 more unit PRBC morning of 04/26 -Hg 7.2 on 04/28 and transfused an additional unit for a total of 6 units PRBCs, recheck in AM with substantial increase in Hg 9.7 Hypotension--Ongoing. BP with SBP in 90s-100s -Patient received blood products as above Leukocytosis--Ongoing -WBC 14.66 upon arrival. Recently received steroids -Repeat WBC 21.86 on 04/25. Patient has been afebrile while inpatient -WBC worsened on 04/27 to 30.98 -Blood cultures x 2 and urine culture neg -Lactic acid 2.6, repeat lactic acid 1.9 -CXR 04/26 shows small right pleural effusion, bilateral atelectasis -CXR 04/27 shows slight increase in right pleural effusion and pulmonary vascular congestion -CT abd/pelvis shows increase in size of hematoma and intraperitoneal extension around liver. Small right pleural effusion. RLL patchy airspace opacities atelectasis vs PNA. -Improving with Zosyn IV Acute kidney injury likely secondary to hypoperfusion/hypotension--baseline creatinine around 1.0. Improving -Creatinine 1.3 upon arrival -Creatinine on 04/25 elevated to 1.8 -Creatinine 2.6 on 04/26 -Repeat creatinine 2.0 on 04/27 -Continue to monitor A-fib--patient has been tachycardic with heart rate in 110s. Pacemaker in place -Continue metoprolol succinate 50 mg PO qd -Coumadin held as above Chronic diastolic CHF--stable -Continue metoprolol as above -Repeat CXR 04/27 shows pulmonary edema and increase in pleural effusion -Lasix per ICU Hypothyroidism -Continue Synthroid 75 g PO qd DVT prophylaxis -Hold chemical prophylaxis due to bleeding -EDSON robledo and SADIEs Code Status -Level I, FULL RESUSCITATION STATUS
[2016-04-29 21:52] LABS: HEMATOCRIT 27.8 % (37-47)
[2016-04-30] VITALS: BP 116/77; PULSE 89; TEMP 37.1; O2SAT 95
[2016-04-30] MEDS: OXYCODONE/ACETAMINOPHEN 5-325 TAB PO SCH ×5 (00:08→23:30)
[2016-04-30 04:00] VITALS: BP 135/65; PULSE 89; TEMP 37; O2SAT 93
[2016-04-30] MEDS: LEVOTHYROXINE 75 MCG TAB PO SCH (05:34)
[2016-04-30] MEDS: PIPERACILL/TAZOBAC IV 3.375 GM in DEXTROSE 5% 100ML 100 ML IV SCH (05:43)
[2016-04-30 06:05] LABS: BASO % 0.2 %; BASO ABS # 0.03 K/uL (0-0.2); COMPLETE YES; EOS % 2.2 %; HEMATOCRIT 28.8 % (37-47); IG% 1.3 %; LYMPH % 11.5 %; MEAN CELL VOLUME 91.1 fL (80-100); MEAN CORPUSCULAR HEMOGLOBIN 30.1 pg (25-34); MEAN PLATELET VOLUME 10.3 fL (7.4-10.4); MONO % 8.5 %; NEUT % 76.3 %; PLATELET COUNT 248 K/uL (130-400); RED BLOOD COUNT 3.16 M/uL (4.2-5.4); WHITE BLOOD COUNT 16.52 K/uL (4.8-10.8)
[2016-04-30 06:36] LABS: CALCIUM 8.8 mg/dl (8.5-10.1); CREATININE 1.1 mg/dl (0.60-1.20); MAGNESIUM 2.4 mg/dl (1.8-2.4); POTASSIUM 3.7 mmol/L (3.5-5.1)
[2016-04-30 06:39] LABS: PHOSPHORUS 1.9 mg/dl (2.5-4.9)
[2016-04-30 07:34] VITALS: BP 133/70; PULSE 74; TEMP 36.7; O2SAT 94
[2016-04-30] MEDS: DOCUSATE SODIUM/SENNA 50/8.6MG TAB PO SCH ×2 (09:00→19:44)
[2016-04-30] MEDS: POLYETHYLENE (MIRALAX) 17 GM PACK PO SCH ×2 (09:00→19:44)
[2016-04-30] MEDS: ATORVASTATIN 10 MG TAB PO SCH (09:11)
[2016-04-30] MEDS: PANTOprazole SOD 40 MG TAB PO SCH ×2 (09:11→19:44)
[2016-04-30] MEDS: FUROSEMIDE INJ 40 MG in SYRINGE 0 ML IV SCH (09:11)
[2016-04-30] MEDS: LIDODERM (LIDOCAINE) PATCH 5% TD SCH (09:11)
[2016-04-30] MEDS: CHOLECALCIFEROL 1000 INTER.UNIT TAB PO SCH (09:11)
[2016-04-30] MEDS: BOOST VANILLA PO SCH ×4 (09:37→19:21)
[2016-04-30 10:51] VITALS: BP 127/80; PULSE 73; TEMP 36.6; O2SAT 95
--- NOTE | 2016-04-30 13:38 | Progress Note ---
Subjective Date of Service: Apr 30, 2016. Subjective Pt evaluation today including: conversation w/ patient, conversation w/ family , physical exam, chart review, lab review, review of studies, review of inpatient medication list Patient feels tired today, did not sleep much last night. She does not want to be on anticoagulation anymore and would like an alternative. She otherwise complains of right hip tenderness. Ecchymosis outlined by RN. She remains afebrile with decreased appetite. No chest pain, no sob. Ambulating without sob. Problem List Medical Problems: (1) Bilateral pneumonia Status: Acute (2) CHF (congestive heart failure) Status: Acute (3) Elevated INR Status: Acute (4) Hematoma of right iliopsoas muscle Status: Acute (5) Hypoxia Status: Acute (6) Supratherapeutic INR Status: Acute Review of Systems All Other Systems: Reviewed and Negative Medications Al Hydrox/Mg Hydrox/Simethicone (Maalox Max Susp) 15 ml Q4H PRN PO; Start 04/24 at 18:15; Stop 05/24/16 at 18:14 Atorvastatin Calcium (Lipitor Tab) 10 mg DAILY PO Last administered on 09:11; Admin Dose 10 MG; Start 04/25/16 at 09:00; Stop 05/25/16 at 08:59 Bisacodyl 10 mg 10 mg DAILY PRN [place]; Start 04/29/16 at 09:00; Stop 05/29/16 at 08:59 Cholecalciferol (Vitamin D Tab) 5,000 inter.unit DAILY PO Last administered on 09:11; Admin Dose 5,000 INTER.UNIT; Start 04/25/16 at 09:00; Stop at 08:59 Enteral Nutritional Formula (Boost) 1 can DAILY@1900 PO; Start 04/30/16 at 19:00 ; Stop 05/30/16 at 18:59 Furosemide/Syringe (Lasix Inj/ Syringe) 4 ml @ 4 mls/min DAILY@0900 IV Last administered on 04/30/16 09:11; Admin Dose 4 MLS/MIN; Start 04/30/16 at 09:00; Stop 05/30/16 at 08:59 Heparin Sodium (Porcine) (Heparin 10 Unit/ ml 5 ml Flush) 5 ml PRN PRN FLUSH; Start 04/28/16 at 09:45; Stop 05/28/16 at 09:44 Levothyroxine Sodium (Synthroid Tab) 75 mcg DAILYBB PO Last administered on 04/30 05:34; Admin Dose 75 MCG; Start 04/25/16 at 06:00; Stop 05/25/16 at 06:59 Lidocaine (Lidoderm Patch 5%) 1 patch DAILY TD Last administered on 04/30/16 09 :11; Admin Dose 1 PATCH; Start 04/26/16 at 09:00; Stop 05/26/16 at 08:59 Magnesium Hydroxide (Milk Of Magnesia Susp) 30 ml Q12H PRN PO Last administered on 04/29/16 09:03; Admin Dose 30 ML; Start 04/24/16 at 18:15; Stop 05/24/16 at 18:14 Metoprolol Succinate (Toprol Xl Tab) 50 mg DAILY PO; Start 04/25/16 at 09:00; Stop 05/25/16 at 08:59; Status Future Hold Miscellaneous (Iv Fluids Completed) 1 ea PRN PRN N/A; Start 04/24/16 at 21:45; Stop 04/24/17 at 21:44 Miscellaneous (Remove Lidoderm Patch) 1 ea DAILY@21 N/A Last administered on 20:13; Admin Dose 1 EA; Start 04/25/16 at 21:00; Stop 05/25/16 at 20:59 Ondansetron HCl (Zofran Inj) 4 mg Q6H PRN IV Last administered on 04/25/16 04: 01; Admin Dose 4 MG; Start 04/24/16 at 18:15; Stop 05/24/16 at 18:14 Oxycodone/ Acetaminophen (Percocet 5-325mg Tab) 1 tab Q6 PO Last administered on 04/30/16 13:02; Admin Dose 1 TAB; Start 04/27/16 at 12:00; Stop 05/11/16 at 11:59 Pantoprazole Sodium (Protonix Tab) 40 mg BID PO Last administered on 04/30/16 09:11; Admin Dose 40 MG; Start 04/24/16 at 21:00; Stop 05/24/16 at 20:59 Polyethylene (Miralax Powder Packet) 17 gm BID PO Last administered on 08:53; Admin Dose 17 GM; Start 04/28/16 at 21:00; Stop 05/28/16 at 20:59 Senna/Docusate Sodium (Senokot S Tab) 1 tab BID PO Last administered on 08:53; Admin Dose 1 TAB; Start 04/27/16 at 09:00; Stop 05/27/16 at 08:59 Objective Vital Signs Date Time Temp Pulse Resp B/P Pulse Ox O2 Delivery O2 Flow Rate FiO2 04/30/16 12:00 Room Air 04/30/16 10:51 36.6 73 16 127/80 95 Room Air 04/30/16 08:00 Room Air 04/30/16 07:34 36.7 74 17 133/70 94 Room Air 04/30/16 04:00 37.0 89 18 135/65 93 04/30/16 04:00 Room Air 04/30/16 00:10 Room Air 2.0 04/30/16 00:00 37.1 89 19 116/77 95 Room Air 04/29/16 20:15 Room Air 04/29/16 20:11 36.5 92 18 137/59 96 Room Air 04/29/16 16:00 98 Room Air 04/29/16 16:00 37.0 86 22 102/62 98 Room Air 04/29/16 14:00 90 23 119/57 94 Room Air Physical Exam Comments: nad, aox3 eomi, perrl, anicteric s1 s2 rrr, no murmurs appreciated right lower lobe rhonchi (chronic), clear LLL, no wheezing abd right LQ tenderness no Le edema cn 2-12 grossly intact Laboratory Results Last 24 Hours Test 04/29/16 21:30 04/30/16 05:30 Hemoglobin 9.4 g/dL 9.5 g/dL Hematocrit 27.8 % 28.8 % White Blood Count 16.52 K/uL Red Blood Count 3.16 M/uL Mean Corpuscular Volume 91.1 fL Mean Corpuscular Hemoglobin 30.1 pg Mean Corpuscular Hemoglobin Concent 33.0 g/dl Platelet Count 248 K/uL Mean Platelet Volume 10.3 fL Neutrophils (%) (Auto) 76.3 % Lymphocytes (%) (Auto) 11.5 % Monocytes (%) (Auto) 8.5 % Eosinophils (%) (Auto) 2.2 % Basophils (%) (Auto) 0.2 % Neutrophils # (Auto) 12.59 K/uL Lymphocytes # (Auto) 1.90 K/uL Monocytes # (Auto) 1.41 K/uL Eosinophils # (Auto) 0.37 K/uL Basophils # (Auto) 0.03 K/uL RDW Standard Deviation 52.6 fL RDW Coefficient of Variation 17.8 % Immature Granulocyte % (Auto) 1.3 % Immature Granulocyte # (Auto) 0.22 K/uL Nucleated RBC Absolute Count (auto) 0.12 K/uL Nucleated Red Blood Cells % 0.7 % Sodium Level 136 mmol/L Potassium Level 3.7 mmol/L Chloride Level 97 mmol/L Carbon Dioxide Level 31 mmol/L Anion Gap 8.0 mmol/L Blood Urea Nitrogen 16 mg/dl Creatinine 1.10 mg/dl Est Creatinine Clear Calc Drug Dose 50.0 ml/min Estimated GFR () 56.1 Estimated GFR (Non- 48.4 BUN/Creatinine Ratio 15.0 Random Glucose 98 mg/dl Calcium Level 8.8 mg/dl Phosphorus Level 1.9 mg/dl Magnesium Level 2.4 mg/dl Total Bilirubin 2.2 mg/dl Direct Bilirubin 0.7 mg/dl Aspartate Amino Transf (AST/SGOT) 37 U/L Alanine Aminotransferase (ALT/SGPT) 43 U/L Alkaline Phosphatase 78 U/L Total Protein 6.4 gm/dl Albumin 3.1 gm/dl CLINICAL HISTORY: Pleural effusion. FINDINGS: An AP, portable, upright chest radiograph is compared to chest x-ray and chest CT dated 04/28/2016. Correlation is made with chest CT dated 04/19/2016. The examination is degraded by portable technique and patient rotation. A 2-lead cardiac pacemaker is unchanged in position. A right PICC line is unchanged. The heart is enlarged and there is atherosclerotic calcification of the thoracic aorta. The pulmonary vasculature is noncongested. There is chronic elevation of the right hemidiaphragm and chronic interstitial thickening. There is a small right pleural effusion with right basilar consolidation. No pneumothorax is seen. The skeletal structures are osteopenic. Degenerative change and scoliosis are noted throughout the thoracic spine. IMPRESSION: 1. Cardiomegaly and cardiac pacemaker. There is no radiographic evidence of congestive failure. 2. Small right pleural effusion with right basilar consolidation. This likely represents atelectasis. Clinical correlation will be required. ULTRASOUND OF THE PLEURAL SPACES CLINICAL HISTORY: Pleural effusion. COMPARISON STUDY: Chest x-ray dated 04/29/2016. FINDINGS: Real-time grayscale sonography of the pleural spaces is performed. No left pleural effusion is identified. There is a small right pleural effusion with associated atelectasis. This has an estimated volume of 262 cc. This was not marked for bedside thoracentesis. IMPRESSION: Small right pleural effusion as above. Assessment and Plan 1. RPH - s/p reversal of coumadin - s/p FFPs - INR <1.5 now - Hb stable >9. 2. Anemia - 2/2 blood loss - s/p 6 units prbc on this admission -Hb stable at this time with stable hemodynamics 3. CHF - no e/o acute decompensation - CXR with small right effusion / consolidation which she has chronically - cont lasix 40mg IV daily and will transition to po likely tomorrow 4. Pneumonia - no e/o pneumonia on CXR - right lower lobe consolidation/effusion is chronic for her - s/p 5 days of zosyn - will stop now 5. Leukocytosis - likely reactive - afebrile - CXR, BCx, and UCx all without e/o infectious process - could be RPH, would monitor off abx at this point - monitor wbc 6. Afib - off anticoagulation and wants to be off anticoagulation at this point - will start her on aspirin on discharge 7. dvt ppx with hsq
[2016-04-30 15:15] VITALS: BP 158/58; PULSE 86; TEMP 36.8; O2SAT 94
[2016-04-30 19:15] VITALS: BP 134/70; PULSE 84; TEMP 36.9; O2SAT 92
[2016-04-30] MEDS ORDERED: NURSING VERBAL MED ORDER ONE (20:00)
[2016-04-30] MEDS ORDERED: ALTEPLASE, RECOMBINANT 1 MG/ML 2 ML VIAL IV SCH (20:15)
[2016-04-30] MEDS ORDERED: ZOLPIDEM TARTRATE 5 MG TAB PO SCH (23:45)
[2016-05-01 00:26] VITALS: BP 109/61; PULSE 88; TEMP 36.8; O2SAT 96
[2016-05-01 04:20] VITALS: BP 119/69; PULSE 95; TEMP 36.8; O2SAT 93
[2016-05-01] MEDS: LEVOTHYROXINE 75 MCG TAB PO SCH (05:27)
[2016-05-01] MEDS: OXYCODONE/ACETAMINOPHEN 5-325 TAB PO SCH ×4 (05:27→23:55)
[2016-05-01 06:13] LABS: BASO % 0.2 %; BASO ABS # 0.03 K/uL (0-0.2); COMPLETE YES; EOS % 2.3 %; HEMATOCRIT 28.2 % (37-47); IG% 0.8 %; LYMPH % 11.9 %; LYMPH ABS # 1.63 K/uL (1.2-3.4); MEAN CELL VOLUME 90.7 fL (80-100); MEAN CORPUSCULAR HEMOGLOBIN 30.5 pg (25-34); MEAN CORPUSCULAR HGB CONC 33.7 g/dl (32-36); MEAN PLATELET VOLUME 9.7 fL (7.4-10.4); MONO % 8.4 %; NEUT % 76.4 %; PLATELET COUNT 302 K/uL (130-400); RED BLOOD COUNT 3.11 M/uL (4.2-5.4); WHITE BLOOD COUNT 13.68 K/uL (4.8-10.8)
[2016-05-01 06:47] LABS: BUN/CREATININE RATIO 16.6 (10-20); CALCIUM 8.7 mg/dl (8.5-10.1); CREATININE 0.94 mg/dl (0.60-1.20); POTASSIUM 3.5 mmol/L (3.5-5.1)
[2016-05-01] MEDS: DOCUSATE SODIUM/SENNA 50/8.6MG TAB PO SCH ×2 (07:34→19:29)
[2016-05-01] MEDS: CHOLECALCIFEROL 1000 INTER.UNIT TAB PO SCH (07:35)
[2016-05-01] MEDS: ATORVASTATIN 10 MG TAB PO SCH (07:35)
[2016-05-01] MEDS: POLYETHYLENE (MIRALAX) 17 GM PACK PO SCH ×2 (07:35→19:29)
[2016-05-01] MEDS: PANTOprazole SOD 40 MG TAB PO SCH ×2 (07:35→19:30)
[2016-05-01] MEDS: FUROSEMIDE INJ 40 MG in SYRINGE 0 ML IV SCH (07:36)
[2016-05-01] MEDS: LIDODERM (LIDOCAINE) PATCH 5% TD SCH (07:36)
[2016-05-01 07:41] VITALS: BP 124/65; PULSE 86; TEMP 36.9; O2SAT 93
[2016-05-01 11:52] VITALS: BP 149/98; PULSE 86; TEMP 36.6; O2SAT 94
--- NOTE | 2016-05-01 14:53 | Progress Note ---
Subjective Date of Service: May 01, 2016. Subjective Pt evaluation today including: conversation w/ patient, physical exam, lab review, review of inpatient medication list Patient feeling tired but better than yesterday. No chest pain, No sob. Discussed with her aspirin vs anticoagulation. Verbalized understanding of risks /benefits of aspirin vs coumadin in patients with Afib. Problem List Medical Problems: (1) Bilateral pneumonia Status: Acute (2) CHF (congestive heart failure) Status: Acute (3) Elevated INR Status: Acute (4) Hematoma of right iliopsoas muscle Status: Acute (5) Hypoxia Status: Acute (6) Supratherapeutic INR Status: Acute Review of Systems All Other Systems: Reviewed and Negative Medications Al Hydrox/Mg Hydrox/Simethicone (Maalox Max Susp) 15 ml Q4H PRN PO; Start 04/24 at 18:15; Stop 05/24/16 at 18:14 Atorvastatin Calcium (Lipitor Tab) 10 mg DAILY PO Last administered on 07:35; Admin Dose 10 MG; Start 04/25/16 at 09:00; Stop 05/25/16 at 08:59 Bisacodyl 10 mg 10 mg DAILY PRN [place]; Start 04/29/16 at 09:00; Stop 05/29/16 at 08:59 Cholecalciferol (Vitamin D Tab) 5,000 inter.unit DAILY PO Last administered on 07:35; Admin Dose 5,000 INTER.UNIT; Start 04/25/16 at 09:00; Stop at 08:59 Enteral Nutritional Formula (Boost) 1 can DAILY@1900 PO Last administered on 19:21; Admin Dose 1 CAN; Start 04/30/16 at 19:00; Stop 05/30/16 at 18:59 Furosemide (Lasix Tab) 40 mg QAM PO; Start 05/02/16 at 09:00; Stop 06/01/16 at 08:59 Furosemide/Syringe (Lasix Inj/ Syringe) 4 ml @ 4 mls/min DAILY@0900 IV Last administered on 05/01/16 07:36; Admin Dose 4 MLS/MIN; Start 04/30/16 at 09:00; Stop 05/02/16 at 06:00 Heparin Sodium (Porcine) (Heparin 10 Unit/ ml 5 ml Flush) 5 ml PRN PRN FLUSH Last administered on 05/01/16 06:00; Admin Dose 5 ML; Start 04/28/16 at 09:45; Stop 05/28/16 at 09:44 Levothyroxine Sodium (Synthroid Tab) 75 mcg DAILYBB PO Last administered on 05/01 05:27; Admin Dose 75 MCG; Start 04/25/16 at 06:00; Stop 05/25/16 at 06:59 Lidocaine (Lidoderm Patch 5%) 1 patch DAILY TD Last administered on 05/01/16 07 :36; Admin Dose 1 PATCH; Start 04/26/16 at 09:00; Stop 05/26/16 at 08:59 Magnesium Hydroxide (Milk Of Magnesia Susp) 30 ml Q12H PRN PO Last administered on 04/29/16 09:03; Admin Dose 30 ML; Start 04/24/16 at 18:15; Stop 05/24/16 at 18:14 Metoprolol Succinate (Toprol Xl Tab) 50 mg DAILY PO; Start 04/25/16 at 09:00; Stop 05/25/16 at 08:59; Status Future Hold Miscellaneous (Iv Fluids Completed) 1 ea PRN PRN N/A; Start 04/24/16 at 21:45; Stop 04/24/17 at 21:44 Miscellaneous (Remove Lidoderm Patch) 1 ea DAILY@21 N/A Last administered on 19:45; Admin Dose 1 EA; Start 04/25/16 at 21:00; Stop 05/25/16 at 20:59 Ondansetron HCl (Zofran Inj) 4 mg Q6H PRN IV Last administered on 04/25/16 04: 01; Admin Dose 4 MG; Start 04/24/16 at 18:15; Stop 05/24/16 at 18:14 Oxycodone/ Acetaminophen (Percocet 5-325mg Tab) 1 tab Q6 PO Last administered on 05/01/16 11:34; Admin Dose 1 TAB; Start 04/27/16 at 12:00; Stop 05/11/16 at 11:59 Pantoprazole Sodium (Protonix Tab) 40 mg BID PO Last administered on 05/01/16 07:35; Admin Dose 40 MG; Start 04/24/16 at 21:00; Stop 05/24/16 at 20:59 Polyethylene (Miralax Powder Packet) 17 gm BID PO Last administered on 07:35; Admin Dose 17 GM; Start 04/28/16 at 21:00; Stop 05/28/16 at 20:59 Senna/Docusate Sodium (Senokot S Tab) 1 tab BID PO Last administered on 07:34; Admin Dose 1 TAB; Start 04/27/16 at 09:00; Stop 05/27/16 at 08:59 Objective Vital Signs Date Time Temp Pulse Resp B/P Pulse Ox O2 Delivery O2 Flow Rate FiO2 05/01/16 12:00 Room Air 05/01/16 11:52 36.6 86 86 149/98 94 Room Air 05/01/16 08:00 Room Air 05/01/16 07:41 36.9 86 20 124/65 93 Room Air 05/01/16 04:20 36.8 95 20 119/69 93 Room Air 05/01/16 04:10 Room Air 05/01/16 00:26 36.8 88 20 109/61 96 Room Air 05/01/16 00:00 Room Air 04/30/16 20:00 Room Air 04/30/16 19:15 36.9 84 18 134/70 92 Room Air 04/30/16 16:00 Room Air 04/30/16 15:15 36.8 86 18 158/58 94 Room Air Physical Exam Comments: nad, aox3 eomi, perrl, anicteric, +proptosis s1 s2 rrr, no murmurs appreciated ctab no w/r/r other than rll +rhonchi abd soft nd +BS +RLQ tend no LE edema Laboratory Results Last 24 Hours Test 05/01/16 05:35 White Blood Count 13.68 K/uL Red Blood Count 3.11 M/uL Hemoglobin 9.5 g/dL Hematocrit 28.2 % Mean Corpuscular Volume 90.7 fL Mean Corpuscular Hemoglobin 30.5 pg Mean Corpuscular Hemoglobin Concent 33.7 g/dl Platelet Count 302 K/uL Mean Platelet Volume 9.7 fL Neutrophils (%) (Auto) 76.4 % Lymphocytes (%) (Auto) 11.9 % Monocytes (%) (Auto) 8.4 % Eosinophils (%) (Auto) 2.3 % Basophils (%) (Auto) 0.2 % Neutrophils # (Auto) 10.44 K/uL Lymphocytes # (Auto) 1.63 K/uL Monocytes # (Auto) 1.15 K/uL Eosinophils # (Auto) 0.32 K/uL Basophils # (Auto) 0.03 K/uL RDW Standard Deviation 51.9 fL RDW Coefficient of Variation 18.2 % Immature Granulocyte % (Auto) 0.8 % Immature Granulocyte # (Auto) 0.11 K/uL Nucleated RBC Absolute Count (auto) 0.05 K/uL Nucleated Red Blood Cells % 0.4 % Sodium Level 136 mmol/L Potassium Level 3.5 mmol/L Chloride Level 97 mmol/L Carbon Dioxide Level 31 mmol/L Anion Gap 8.0 mmol/L Blood Urea Nitrogen 16 mg/dl Creatinine 0.94 mg/dl Est Creatinine Clear Calc Drug Dose 58.4 ml/min Estimated GFR () 67.8 Estimated GFR (Non- 58.5 BUN/Creatinine Ratio 16.6 Random Glucose 88 mg/dl Calcium Level 8.7 mg/dl Assessment and Plan 1. RPH - s/p reversal of coumadin - s/p FFPs - INR 1.1 - Hb stable >9. 2. Anemia - 2/2 blood loss - s/p 6 units prbc on this admission -Hb stable at this time with stable hemodynamics 3. CHF - no e/o acute decompensation - CXR with small right effusion / consolidation which she has chronically - cont lasix 40mg po qAM 4. Pneumonia - no e/o pneumonia on CXR - right lower lobe consolidation/effusion is chronic for her - s/p 5 days of zosyn - off zosyn 5. Leukocytosis - likely reactive - afebrile - CXR, BCx, and UCx all without e/o infectious process - could be RPH, would monitor off abx at this point - continues to trend down off abx 6. Afib - off anticoagulation and wants to be off anticoagulation at this point - will start her on aspirin on discharge 7. dvt ppx with hsq
[2016-05-01 15:10] VITALS: BP 124/61; PULSE 87; TEMP 36.9; O2SAT 93
[2016-05-01 19:10] VITALS: BP 125/76; PULSE 82; TEMP 37; O2SAT 93
[2016-05-01] MEDS: BOOST VANILLA PO SCH ×2 (19:39)
[2016-05-02 00:05] VITALS: BP 134/75; PULSE 87; TEMP 37.1; O2SAT 92
[2016-05-02 04:09] VITALS: BP 127/61; PULSE 90; TEMP 36.8; O2SAT 92
[2016-05-02] MEDS: OXYCODONE/ACETAMINOPHEN 5-325 TAB PO SCH ×2 (05:51→11:14)
[2016-05-02 06:09] LABS: BASO % 0.3 %; BASO ABS # 0.03 K/uL (0-0.2); COMPLETE YES; EOS % 2.7 %; HEMATOCRIT 29.4 % (37-47); IG% 0.7 %; LYMPH % 13.9 %; LYMPH ABS # 1.43 K/uL (1.2-3.4); MEAN CELL VOLUME 93.9 fL (80-100); MEAN CORPUSCULAR HEMOGLOBIN 30.4 pg (25-34); MEAN CORPUSCULAR HGB CONC 32.3 g/dl (32-36); MEAN PLATELET VOLUME 9.3 fL (7.4-10.4); MONO % 7.3 %; NEUT % 75.1 %; PLATELET COUNT 309 K/uL (130-400); RED BLOOD COUNT 3.13 M/uL (4.2-5.4); WHITE BLOOD COUNT 10.27 K/uL (4.8-10.8)
[2016-05-02] MEDS: LEVOTHYROXINE 75 MCG TAB PO SCH (07:18)
[2016-05-02 08:05] VITALS: BP 128/71; PULSE 89; TEMP 36.8; O2SAT 93
[2016-05-02] MEDS: PANTOprazole SOD 40 MG TAB PO SCH (08:07)
[2016-05-02] MEDS: DOCUSATE SODIUM/SENNA 50/8.6MG TAB PO SCH (08:07)
[2016-05-02] MEDS: POLYETHYLENE (MIRALAX) 17 GM PACK PO SCH (08:07)
[2016-05-02] MEDS: ATORVASTATIN 10 MG TAB PO SCH (08:07)
[2016-05-02] MEDS: CHOLECALCIFEROL 1000 INTER.UNIT TAB PO SCH (08:07)
[2016-05-02] MEDS: LIDODERM (LIDOCAINE) PATCH 5% TD SCH (08:08)
[2016-05-02] MEDS ORDERED: FUROSEMIDE 40 MG TAB PO SCH (09:00)
--- NOTE | 2016-05-02 10:17 | Discharge Summary ---
Discharge Summary Date of Service May 02, 2016. Discharge Summary Admission Date: Apr 24, 2016 at 21:27 Principal Diagnosis: retroperitoneal bleed Immunizations: Have You Had Influenza Vaccine: No Medication Reconciliation New Medications: Aspirin (Aspirin EC Low Dose) 81 Mg Ectab 81 MG PO DAILY for 30 Days, 3 Refills Furosemide (Furosemide) 40 Mg Tab 40 MG PO QAM for 30 Days, #30 TAB Lidocaine (Lidocaine) 1 Patch Tdsy 1 PATCH TD DAILY for 30 Days Continued Medications: Atorvastatin (Lipitor) 10 Mg Tab 10 MG PO DAILY, TAB Cholecalciferol (D 5000) 5,000 Unit Tab 5000 INTERUNIT PO DAILY Levothyroxine Sodium (Levothyroxine Sodium) 75 Mcg Tab 75 MCG PO DAILY for 30 Days, #30 TAB 5 Refills Metoprolol Succ (Toprol Xl) (Toprol-Xl) 50 Mg Tabcr 50 MG PO DAILY, #30 TAB Pantoprazole (Pantoprazole Sodium) 40 Mg Tab 40 MG PO BID, #60 TAB 3 Refills take twice a day for one month then go to once daily Potassium Chloride (Micro-K Ext Rel) 10 Meq Capcr 20 MEQ PO DAILY, CAP Ropinirole (Requip) 1 Mg Tab 1 MG PO DAILY, TAB Discontinued Medications: Enoxaparin (Lovenox) 80 Mg/0.8 Ml Inj 80 MG SQ Q12 for 1 Day, #2 DOSE 0 Refills Furosemide (Lasix) 20 Mg Tab 20 MG PO DAILY, TAB Warfarin Sod (Jantoven) 2 Mg Tab 2 MG PO 3XWK, TAB SATURDAY, SATURDAY, SATURDAY Warfarin Sod (Jantoven) 3 Mg Tab 3 MG PO 4XWK, TAB SATURDAY, SATURDAY, SATURDAY, SATURDAY Hospital Course 75 y/o F w/Hx AF/pacer on Coumadin. Recent admissions to the hospital for PNM and then CHF exacerbation respectively. Developed pain in her lower back tracking down her RLE mimicking sciatica. She was evaluated in the ER and was noted to have a right iliopsoas hematoma measuring 6 x 8 x 12 cm. She denies SOB, light-headedness, CP, nausea, vomiting or dysuria. She has been on Coumadin for 12 years prior without complication. During this admission, patient was found to have retroperitoneal hemorrhage. She was given FFPs and multiple prbcs this admission. Eventually, hb did stabilize and she was transferred from ICU to floor. On the floors, she was deemed appropriate for rehab after a PT/OT evaluation. Risks and benefits were also discussed in terms of anticoagulation vs antiplatelet for stroke prevention in afib. Due to increased risk in bleeding, she has opted to resume with low-dose aspirin. FOr her presumed pneumonia, she was initially on broad spectrum abx and then to zosyn. However, on review of imaging studies, she has had a chronic right lower lobe scar from a prior procedure. Zosyn was then stopped. On day of discharge, she was upset that she is unable to shower. IT was explained to her that she was accepted and will be transferred to [facility] where she will be given a shower. She was agreeable to this plan Vital Signs Date Time Temp Pulse Resp B/P Pulse Ox O2 Delivery O2 Flow Rate FiO2 05/02/16 08:05 36.8 89 20 128/71 93 Room Air 04/30/16 00:10 2.0 1. RPH - s/p reversal of coumadin - s/p FFPs - INR 1.1 - Hb stable >9. 2. Anemia - 2/2 blood loss - s/p 6 units prbc on this admission -Hb stable at this time with stable hemodynamics 3. CHF - no e/o acute decompensation - CXR with small right effusion / consolidation which she has chronically - cont lasix 40mg po qAM 4. Pneumonia - no e/o pneumonia on CXR - right lower lobe consolidation/effusion is chronic for her - s/p 5 days of zosyn - off zosyn 5. Leukocytosis - likely reactive - afebrile - CXR, BCx, and UCx all without e/o infectious process - could be RPH, would monitor off abx at this point - continues to trend down off abx 6. Afib - off anticoagulation and wants to be off anticoagulation at this point - was started on aspirin prior to discharge 7. dvt ppx with hsq Total Time Spent: Greater than 30 minutes This includes examination of the patient, discharge planning, medication reconciliation, and communication with other providers. Discharge Instructions Please refer to the electronic Patient Visit Report (Discharge Instructions) for additional information. Additional Copies To Lg Rodriguez MD
[2016-05-02] MEDS ORDERED: LDDP5 TD (10:46)
[2016-05-02] MEDS ORDERED: LSX40 PO (10:46)
[2016-05-02] MEDS ORDERED: ASPEC81 PO (10:46)
--- NOTE | 2016-05-02 10:47 | Discharge Instructions ---
Discharge Instructions Date of Service May 02, 2016. Admission Reason for Admission: Retroperitoneal Bleed Discharge Discharge Diagnosis / Problem: retroperitoneal bleed Discharge Goals Goal(s): Decrease discomfort, Improve function, Increase independence Activity Recommendations Activity Limitations: resume your previous activity . Current Hospital Diet Patient's current hospital diet: AHA Diet (Heart Healthy) Discharge Diet Recommended Diet: AHA Diet (Heart Healthy) Pending Studies Studies pending at discharge: no Laboratory Results Lipid Panel Test 04/20/16 06:07 Range/Units Triglycerides Level 172 H 0-150 mg/dl Cholesterol Level 148 0-200 mg/dl HDL Cholesterol 46 mg/dl Cholesterol/HDL Ratio 3.2 LDL Cholesterol, Calculated 68 mg/dl Medical Emergencies . Who to Call and When: Medical Emergencies: If at any time you feel your situation is an emergency, please call 911 immediately. . Non-Emergent Contact Non-Emergency issues call your: Primary Care Provider . . "Provider Documentation" section prepared by Rafaela Erazo. VTE Core Measure Inpt VTE Proph given/why not?: Contraindicated
[2016-05-02] MEDS ORDERED: ASPIRIN 81 MG CHEW ONE (10:54)
[2016-05-02 11:14] VITALS: BP 136/77; PULSE 89; TEMP 36.9; O2SAT 95
[2016-05-02] MEDS ORDERED: ASPIRIN 81 MG CHEW PO ONE (12:00)
[2016-05-03] MEDS ORDERED: ASPIRIN 81 MG ECTAB PO SCH (09:00)
[2016-08-28] MEDS ORDERED: LEVO75TA5 PO (12:42)
[2016-08-28] MEDS ORDERED: METO-217 PO (12:42)
[2016-08-28] MEDS ORDERED: FRS/40 PO (12:42)
[2016-08-28] MEDS ORDERED: ASPI81TA28 PO (12:42)
== END 2016-05-02 11:47 | DRG 813 ==
LOC: ENRESERVDT → ENRESERVTM → CANRESERV → EDBD 13:34 → C.EDB 13:34 → C.MSICU 21:27 → EDBEDREQSVC 21:28 → EDBEDREQTM 21:28 → EDBEDREQ 21:28 → C.2E 04-29 19:04
PROVIDERS: ADMIT Internal Medicine; ATTEND Internal Medicine
DX: D68.32 Hemorrhagic disorder due to extrinsic circulating anticoagulants (principal); N17.0 Acute kidney failure with tubular necrosis; I50.32 Chronic diastolic (congestive) heart failure; D62 Acute posthemorrhagic anemia; E03.9 Hypothyroidism, unspecified; M79.81 Nontraumatic hematoma of soft tissue; Z95.0 Presence of cardiac pacemaker; D72.829 Elevated white blood cell count, unspecified; Z79.01 Long term (current) use of anticoagulants; I10 Essential (primary) hypertension; Z87.01 Personal history of pneumonia (recurrent); G25.81 Restless legs syndrome; E78.5 Hyperlipidemia, unspecified; Z87.891 Personal history of nicotine dependence; I48.2 Chronic atrial fibrillation; Z79.899 Other long term (current) drug therapy; I95.9 Hypotension, unspecified; E66.9 Obesity, unspecified; Z68.35 Body mass index [BMI] 35.0-35.9, adult; K59.00 Constipation, unspecified; E87.6 Hypokalemia

== ENCOUNTER 2016-05-25 14:23 | Emergency (ER) | payer OTHER, MEDICARE ==
[~2016-05-25] VITALS: Ht 167.6 cm; Wt 88.3 kg
[~2016-05-25 14:23] MED LIST changes: +ASPEC81 PO; +ATOR10TA82 PO; -ATOR10TA88 PO; -FURO-85 PO; +LDDP5 TD; +LSX40 PO; -LVNIS80 SQ; -WARF2TAB8 PO
[2016-05-25 14:45] VITALS: TEMP 36.5
[2016-05-25] MEDS ORDERED: SODIUM CHLORIDE 0.9% 1000ML 1,000 ML IV STA (16:41)
[2016-05-25 17:27] LABS: BASO % 0.3 %; BASO ABS # 0.03 K/uL (0-0.2); COMPLETE YES; EOS % 1.4 %; HEMATOCRIT 38.6 % (37-47); IG% 0.2 %; LYMPH % 14.5 %; LYMPH ABS # 1.33 K/uL (1.2-3.4); MEAN CELL VOLUME 98.7 fL (80-100); MEAN CORPUSCULAR HEMOGLOBIN 32.7 pg (25-34); MEAN CORPUSCULAR HGB CONC 33.2 g/dl (32-36); MEAN PLATELET VOLUME 9.4 fL (7.4-10.4); MONO % 7.5 %; NEUT % 76.1 %; PLATELET COUNT 296 K/uL (130-400); RED BLOOD COUNT 3.91 M/uL (4.2-5.4)
[2016-05-25] MEDS ORDERED: DOCU-94 PO (17:29)
[2016-05-25 18:02] LABS: ALT/SGPT 16 U/L (12-78); BLOOD UREA NITROGEN 15 mg/dl (7-18); BUN/CREATININE RATIO 15.6 (10-20); CALCIUM 8.9 mg/dl (8.5-10.1); CARBON DIOXIDE 27 mmol/L (21-32); CHLORIDE 102 mmol/L (98-107); CREATININE 0.99 mg/dl (0.60-1.20); GLUCOSE 89 mg/dl (70-99); SODIUM 138 mmol/L (136-145)
[2016-05-25 18:06] VITALS: Ht 167.6 cm; Wt 88.3 kg
[2016-05-25 18:06] LABS: ALKALINE PHOSPHATASE 89 U/L (45-117)
[2016-05-25 18:07] LABS: AST/SGOT 43 U/L (15-37); MAGNESIUM 2.1 mg/dl (1.8-2.4)
[2016-05-25 18:08] LABS: CKMB/CK RATIO 1.5 (0-3.0)
[2016-05-25] MEDS ORDERED: CRFL PO (19:49)
[2016-05-25] MEDS: SUCRALFATE 1 GM/10 ML UDC PO STA ×2 (19:49→20:00)
[2016-05-25 20:02] VITALS: BP 137/66; PULSE 74; O2SAT 95
--- NOTE | 2016-05-25 20:56 | EMERGENCY ROOM VISIT NOTE ---
History Report prepared by Ayan: Berenice Curiel Under the Supervision of: Dr. Fabian Bazan M.D. First contact with patient: 16:39 Chief Complaint: VOMITING Stated Complaint: VOMITTING OVERNIGHT,JUST HAD A HEMATOMA Nursing Triage Summary: c/o vomitting 3x in a hr sent in home health nurse coffee ground vomkarthikeyan pt is on asprin was recently dc from [facility] with a right hip hematoma 05/02 no complaints of pain History of Present Illness The patient is a 75 year old female who presents to the Emergency Room with complaints of vomiting that occurred around midnight last night. She reports she vomited 3 times in an hour and states the vomit looked like "coffee grounds ". She denies eating anything dark colored or red in the past 24 hours. She reports she ate tea and toast for breakfast this morning, but has not eaten much else since then due to nausea, but she has not actually vomited since midnight. The only daily blood thinner she takes is Aspirin. The patient was discharged from the hospital on May 02, 2016 for a hematoma on her right hip and reports she required 7 units of blood via transfusion. Her right leg is still "a little numb". She states her home health nurse was concerned about internal bleeding when she saw the vomit and referred the patient to the ED. Her primary care physician is Dr. Rodriguez in [place]. She has been taking her medications as prescribed, but reports she was only taking Protonix once a day for the past week, due to not realizing she was supposed to take it twice daily. Erosive esophagitis was seen on the patients last endoscopy from early April 2016. The patient denies LOC, headache, fevers, chills, diaphoresis, visual changes, neck pain, chest pain, breathing difficulties, abdominal pain, back pain, melena, hematochezia, urinary symptoms, numbness, weakness, lymphadenopathy, rash, or other complaints. Source of History: patient Onset: midnight last night Position: other (global) Quality: other (vomiting) Timing: resolved Associated Symptoms: + nausea, + numbness (right leg) Review of Systems See HPI for pertinent positives and negatives. A total of ten systems were reviewed and were otherwise negative. Past Medical & Surgical Medical Problems: (1) GI bleed (2) Hypertension (3) Pacemaker (4) Pulmonary edema (5) Restless leg syndrome (6) Retroperitoneal bleed Social History Smoking Status: Former Smoker Alcohol Use: occasionally Drug Use: none Marital Status: Housing Status: lives alone Occupation Status: retired Current/Historical Medications Scheduled Aspirin (Aspirin EC Low Dose), 81 MG PO DAILY Atorvastatin (Lipitor), 10 MG PO DAILY Cholecalciferol (D 5000), 5,000 INTERUNIT PO DAILY Docusate Sodium (Colace), 1 CAP PO BID Furosemide (Furosemide), 40 MG PO QAM Levothyroxine Sodium (Levothyroxine Sodium), 75 MCG PO DAILY Metoprolol Succ (Toprol Xl) (Toprol-Xl), 50 MG PO DAILY Pantoprazole (Pantoprazole Sodium), 40 MG PO BID Potassium Chloride (Micro-K Ext Rel), 20 MEQ PO DAILY Ropinirole (Requip), 1 MG PO DAILY Sucralfate (Carafate), 10 ML PO QID Allergies Coded Allergies: No Known Allergies (Unverified , 05/25/16) Physical Exam Vital Signs Date Time Temp Pulse Resp B/P Pulse Ox O2 Delivery O2 Flow Rate FiO2 05/25/16 20:02 74 18 137/66 95 05/25/16 18:49 Room Air 05/25/16 18:25 66 05/25/16 18:00 74 18 114/57 94 Room Air 05/25/16 14:45 36.5 74 16 124/79 93 Room Air Physical Exam GENERAL: Awake, alert, well-appearing, in no distress HENT: Normocephalic, atraumatic. Oropharynx unremarkable. EYES: Normal conjunctiva. Sclera non-icteric. NECK: Supple. No nuchal rigidity. FROM. No JVD. RESPIRATORY: Clear to auscultation. CARDIAC: Regular rate, normal rhythm. Extremities warm and well perfused. Pulses equal. ABDOMEN: Soft, non-distended. No tenderness to palpation. No rebound or guarding. No masses. RECTAL: Deferred. MUSCULOSKELETAL: Chest examination reveals no tenderness. The back is symmetrical on inspection without obvious abnormality. There is no CVA tenderness to palpation. No joint edema. LOWER EXTREMITIES: Calves are equal size bilaterally and non-tender. No edema. No discoloration. NEURO: Normal sensorium. No sensory or motor deficits noted. SKIN: No rash or jaundice noted. Medical Decision & Procedures Laboratory Results 05/25/16 17:09 Red Blood Count 3.91, Mean Corpuscular Volume 98.7, Mean Corpuscular Hemoglobin 32.7, Mean Corpuscular Hemoglobin Concent 33.2, Mean Platelet Volume 9.4, Neutrophils (%) (Auto) 76.1, Lymphocytes (%) (Auto) 14.5, Monocytes (%) (Auto) 7.5, Eosinophils (%) (Auto) 1.4, Basophils (%) (Auto) 0.3, Neutrophils # (Auto) 7.00, Lymphocytes # (Auto) 1.33, Monocytes # (Auto) 0.69, Eosinophils # (Auto) 0.13, Basophils # (Auto) 0.03 05/25/16 17:09 Test 05/25/16 17:09 White Blood Count 9.20 K/uL (4.8-10.8) Red Blood Count 3.91 M/uL (4.2-5.4) Hemoglobin 12.8 g/dL (12.0-16.0) Hematocrit 38.6 % (37-47) Mean Corpuscular Volume 98.7 fL (80-100) Mean Corpuscular Hemoglobin 32.7 pg (25-34) Mean Corpuscular Hemoglobin Concent 33.2 g/dl (32-36) Platelet Count 296 K/uL (130-400) Mean Platelet Volume 9.4 fL (7.4-10.4) Neutrophils (%) (Auto) 76.1 % Lymphocytes (%) (Auto) 14.5 % Monocytes (%) (Auto) 7.5 % Eosinophils (%) (Auto) 1.4 % Basophils (%) (Auto) 0.3 % Neutrophils # (Auto) 7.00 K/uL (1.4-6.5) Lymphocytes # (Auto) 1.33 K/uL (1.2-3.4) Monocytes # (Auto) 0.69 K/uL (0.11-0.59) Eosinophils # (Auto) 0.13 K/uL (0-0.5) Basophils # (Auto) 0.03 K/uL (0-0.2) RDW Standard Deviation 70.8 fL (36.4-46.3) RDW Coefficient of Variation 19.5 % (11.5-14.5) Immature Granulocyte % (Auto) 0.2 % Immature Granulocyte # (Auto) 0.02 K/uL (0.00-0.02) Anion Gap 9.0 mmol/L (3-11) Est Creatinine Clear Calc Drug Dose 53.2 ml/min Estimated GFR () 63.7 Estimated GFR (Non- 55.0 BUN/Creatinine Ratio 15.6 (10-20) Calcium Level 8.9 mg/dl (8.5-10.1) Magnesium Level 2.1 mg/dl (1.8-2.4) Total Bilirubin 1.8 mg/dl (0.2-1) Direct Bilirubin 0.4 mg/dl (0-0.2) Aspartate Amino Transf (AST/SGOT) 43 U/L (15-37) Alanine Aminotransferase (ALT/SGPT) 16 U/L (12-78) Alkaline Phosphatase 89 U/L (45-117) Total Creatine Kinase 85 U/L (26-192) Creatine Kinase MB 1.3 ng/ml (0.5-3.6) Creatine Kinase MB Ratio 1.5 (0-3.0) Troponin I < 0.015 ng/ml (0-0.045) Total Protein 7.3 gm/dl (6.4-8.2) Albumin 3.7 gm/dl (3.4-5.0) Lipase 94 U/L (73-393) Thyroid Stimulating Hormone (TSH) 7.120 uIu/ml (0.300-4.500) Laboratory results reviewed by me Medications Administered Medications (Trade) Dose Ordered Sig/[place] Route Start Time Stop Time Status Last Admin Dose Admin Sodium Chloride (Nss 1000ml) 1,000 ml @ 125 mls/hr Q8H STAT IV 05/25/16 16:41 05/25/16 20:23 DC 05/25/16 18:00 125 MLS/HR Sucralfate (Carafate Susp) 1 gm NOW STAT PO 05/25/16 19:19 05/25/16 19:20 DC 05/25/16 20:00 1 GM ECG Indication: vomiting Rate (beats per minute): 74 Rhythm: atrial fibrillation Findings: LAFB, nonspecific-ST abn, PVC, no acute ischemic change ED Course 1641: NSS 1000 ml @ 125 mls/hr IV. 1655: The patient was evaluated in room D7. A complete history and physical exam was performed. 1830: I reevaluated the patient. She is feeling great and resting comfortably. 1903: I discussed the patients case with Dr. Sherwin Aponte, [facility]. He said to make sure she is taking her PPI twice daily and it is reasonable to put her on Carafate. 1918: Carafate Susp 1 gm PO. 1929: I reevaluated the patient. She is feeling much better. I discussed her results and discharge instructions and she verbalized complete understanding and agreement. Medical Decision Triage Nursing notes reviewed. The patient's presentation and history were concerning for dark vomitus that resolved. Etiologies such as gastroenteritis, food borne illness, infections, obstruction , pancreatitis, appendicitis, diverticulitis, inflammatory bowel disease, GI bleed, biliary pathology, toxicologic as well as others were entertained. The patient was evaluated. Clinically she was doing well. She is gently hydrated. She had essentially no symptoms. She vomited over 16 hours ago. There was some concerns that it may be related to her GI bleeding. The patient does have erosive esophagitis on prior record review. She inadvertently was only taking Protonix once daily as opposed to twice a day. She just restarted twice a day dosing. The patient has had no melena or hematochezia. Blood work is obtained. The patient's hemoglobin is actually normal and significantly better than her prior from the recent admission. The remainder for testing was unremarkable. The exact etiology of her symptoms is not obvious she has no pain now. She has no nausea. She had no symptoms leading up to the event. I discussed conservative management with the patient and she felt comfortable as did family. I did consult with Dr. Aponte of GI. Given her progressive esophagitis and symptoms we felt it would be reasonable to try her on a short course of Carafate liquid and she can follow-up in the office. He feels that she may need a repeat endoscopy in the very near future. If she worsens in anyway the patient was instructed to come back to the emergency department. Patient and family felt this was reasonable. The patient was given the first dose of the Carafate here. I gave my usual and customary discussion regarding this issue. By the evaluation outlined above other emergent etiologies such as those listed in the differential, as well as others, were deemed relatively unlikely. The patient and family were informed about the findings as listed above. All questions were answered and they were very pleased with the treatment. Return instructions were outlined and the patient was discharged in stable condition. The patient was referred to her PCP and GI for follow-up for a recheck of the current condition. The chart was completed utilizing [employer] Speech voice recognition software. Grammatical errors, random word insertions, pronoun errors, and incomplete sentences are an occasional consequence of this system due to software limitations, ambient noise, and hardware issues. Any formal questions or concerns about the content, text, or information contained within the body of this dictation should be directly addressed to the physician for clarification. Consults Time Called: 1899 Consulting Physician: [facility] Returned Call: 1903 I discussed the patients case with [facility]. He said to make sure she is taking her PPI twice daily and it is reasonable to put her on Carafate. Impression Primary Impression: Vomiting Scribe Attestation The scribe's documentation has been prepared under my direction and personally reviewed by me in its entirety. I confirm that the note above accurately reflects all work, treatment, procedures, and medical decision making performed by me. Departure Information Dispostion Home / Self-Care Prescriptions Sucralfate (CARAFATE) 1 Gm/10 Ml [place] 10 ML PO QID, #400 ML Prov: Fabian Bazan MD 05/25/16 Referrals Lg Rodriguez MD (PCP) Patient Instructions My [facility] Additional Instructions Make sure you're taking the Protonix twice daily as prescribed. Carafate 10 mL 4 times a day until finished. If necessary this may be extended by GI. Acetaminophen(Tylenol) may be used for fever or pain. Use 1000mg every six hours as needed. Avoid using more than 4000mg in a 24 hour period. Rest and drink plenty of fluids as tolerated. Slow sips of water or sports drinks are recommended instead of large amounts all at once. Continue current medications. Eat light. You should avoid full, heavy meals for about 24 hrs from the time your symptoms resolved. Return to the ER for persistent vomiting, fevers, abdominal pain, chest pains, difficulty breathing, black or bloody stools, worsening of your condition, or as needed. Follow up with your primary physician next week for a recheck of your current condition Call Dr. Aponte's office on Saturday to set up a follow-up appointment. Problem Qualifiers Primary Impression: Vomiting Vomiting type: unspecified Vomiting Intractability: non-intractable Nausea presence: without nausea Qualified Codes: R11.11 - Vomiting without nausea
--- NOTE | 2016-05-28 08:55 | DIAGNOSTIC IMAGING REPORT ---
CHEST ONE VIEW PORTABLE CLINICAL HISTORY: Vomiting. Weakness. COMPARISON STUDY: Chest radiograph April 29, 2016. FINDINGS: A dual lead left subclavian pacemaker is unchanged in position. Moderate cardiomegaly is unchanged. There is pulmonary vascular congestion. A small right pleural effusion is increased in size. There is right basilar opacity. IMPRESSION: 1. Increase in size of a small to moderate right pleural effusion. Associated opacity favors atelectasis. 2. Pulmonary vascular congestion. Electronically signed by: Piotr Ly M.D. 05/28/2016 8:53 AM Dictated Date/Time: 05/28/2016 8:51 AM
[2016-08-28] MEDS ORDERED: METO-217 PO (12:42)
[2016-08-28] MEDS ORDERED: FRS/40 PO (12:42)
[2016-08-28] MEDS ORDERED: LEVO75TA5 PO (12:42)
[2016-08-28] MEDS ORDERED: ASPI81TA28 PO (12:42)
== END 2016-05-25 20:05 | disposition home or self-care (01) ==
LOC: C.EDB 14:25 → C.EDC 20:05
DX: R11.10 Vomiting, unspecified (principal); I48.91 Unspecified atrial fibrillation; I10 Essential (primary) hypertension; R45.1 Restlessness and agitation; Z87.19 Personal history of other diseases of the digestive system; Z95.0 Presence of cardiac pacemaker; Z87.891 Personal history of nicotine dependence; Z79.82 Long term (current) use of aspirin; Z79.899 Other long term (current) drug therapy

== ENCOUNTER → 2016-07-24 | Outpatient (CLI) | payer OTHER, MEDICARE ==
[~2016-07-24] MED LIST changes: +ASPI81TA28 PO; +CPR500 PO; +CRFL PO; +DOCU-94 PO; +FRS/40 PO; -LDDP5 TD; +LEVO88TA3 PO; +METO-217 PO; +MTR500 PO; +MULT-1092 PO; +PANT40TA PO
--- NOTE | 2016-07-24 19:22 | PULMONARY FUNCTION TEST ---
Interpretation is based off ATS criteria. SPIROMETRY: Moderate obstructive ventilatory disease with borderline reversibility based off FVC. LUNG VOLUMES: Mildly decreased total lung capacity with a total lung capacity of 75%. DIFFUSION: Moderately reduced with a DLco/VA ratio of 114%. INTERPRETATION: Signs of moderate obstructive ventilatory disease with possible restrictive ventilatory disease. MTDD
== END | disposition home or self-care (01) ==
LOC: C.RC 10:20
PROVIDERS: ATTEND Physician Assistant
DX: J44.9 Chronic obstructive pulmonary disease, unspecified (principal)

== ENCOUNTER 2016-08-03 16:13 | Inpatient (IN) | payer OTHER, MEDICARE ==
[~2016-08-03] VITALS: Ht 167.6 cm; Wt 86.2 kg
[~2016-08-03 16:13] MED LIST changes: -ASPI81TA28 PO; -CPR500 PO; -FRS/40 PO; -LEVO88TA3 PO; -METO-217 PO; -MTR500 PO; -MULT-1092 PO; -PANT40TA PO
[2016-08-03] MEDS ORDERED: PANT40TA PO (16:52)
[2016-08-03 17:19] LABS: BASO % 0.2 %; BASO ABS # 0.02 K/uL (0-0.2); COMPLETE YES; EOS % 0.1 %; HEMATOCRIT 42.9 % (37-47); IG% 0.3 %; LYMPH % 4.9 %; LYMPH ABS # 0.63 K/uL (1.2-3.4); MEAN CELL VOLUME 96.4 fL (80-100); MEAN CORPUSCULAR HEMOGLOBIN 31.5 pg (25-34); MEAN CORPUSCULAR HGB CONC 32.6 g/dl (32-36); MEAN PLATELET VOLUME 9.5 fL (7.4-10.4); MONO % 7.7 %; NEUT % 86.8 %; PLATELET COUNT 268 K/uL (130-400); RED BLOOD COUNT 4.45 M/uL (4.2-5.4); WHITE BLOOD COUNT 12.74 K/uL (4.8-10.8)
[2016-08-03 17:27] LABS: PROTHROMBIN TIME (PATIENT) 10.7 SECONDS (9.0-12.0)
[2016-08-03 17:40] LABS: ALT/SGPT 224 U/L (12-78); AST/SGOT 424 U/L (15-37); BLOOD UREA NITROGEN 17 mg/dl (7-18); BUN/CREATININE RATIO 15.5 (10-20); CALCIUM 8.9 mg/dl (8.5-10.1); CARBON DIOXIDE 25 mmol/L (21-32); CHLORIDE 105 mmol/L (98-107); GLUCOSE 105 mg/dl (70-99); POTASSIUM 3.5 mmol/L (3.5-5.1); SODIUM 139 mmol/L (136-145)
[2016-08-03 17:44] LABS: ALKALINE PHOSPHATASE 313 U/L (45-117)
--- NOTE | 2016-08-03 18:00 | DIAGNOSTIC IMAGING REPORT ---
ABDOMEN AND PELVIS CT WITHOUT CONTRAST CT DOSE: 642.08 mGy.cm HISTORY: right flank pain TECHNIQUE: Multiaxial CT images of the abdomen and pelvis were performed without contrast. COMPARISON STUDY: Abdomen and pelvis CT 04/26/2016. FINDINGS: Small right pleural effusion. This is slightly decreased in size. Pacemaker wires are noted.] Densities favor subsegmental atelectasis. No acute fractures within the visualized osseous structures. The unenhanced liver, spleen, right adrenal gland, pancreas, and kidneys are unremarkable. No hydronephrosis. Stable 1.2 cm left adrenal gland nodule. The gallbladder appears to be contracted. The common bile duct appears to be distended. There are 2 focal areas of increased density within the common bile duct measuring 1 cm. These are consistent with common bile duct stones. Common bile duct is distended up to 2 cm. Right retroperitoneal fluid collection is significantly decreased in size. This currently measures a maximal diameter of 6 cm. The bladder, uterus, and ovaries are unremarkable. No bowel wall thickening or obstruction on this noncontrast study. Multiple small and large bowel diverticula are again noted. IMPRESSION: 1. Distended common bile duct. There are 2 stones within the distal common bile duct measuring 1 cm. ERCP is recommended for further evaluation. 2. The gallbladder is contracted. 3. Decrease in size in the 6 cm right retroperitoneal fluid collection. This favors a resolving hematoma. 4. Decrease in size in the small right pleural effusion. 5. Additional findings as described above. Electronically signed by: Nolan Strange M.D. 08/03/2016 5:59 PM Dictated Date/Time: 08/03/2016 5:52 PM
[2016-08-03] MEDS ORDERED: PIPERACILLIN/TAZOBACTAM 4.5 GM/100ML D5W IV STA (18:08)
[2016-08-03] MEDS ORDERED: SODIUM CHLORIDE 0.9% 1000ML 1,000 ML IV STA (18:17)
[2016-08-03 18:22] LABS: URINE APPEARANCE CLEAR (CLEAR); URINE COLOR DK YELLOW; URINE EPITHELIAL CELL AUTO 20-30 /lpf (0-5); URINE NITRITE NEG (NEG); URINE PH 5.5 (4.5-7.5); URINE SPECIFIC GRAVITY 1.018 (1.000-1.030); UROBILINOGEN NEG (NEG)
[2016-08-03 18:23] LABS: MANUAL MICROSCOPIC REQUIRED? NO; REVIEW REQ? NO; URINE BILIRUBIN 1+ (NEG)
--- NOTE | 2016-08-03 18:28 | DIAGNOSTIC IMAGING REPORT ---
CHEST ONE VIEW PORTABLE HISTORY: Generalized abdominal pain. COMPARISON: Chest 05/25/2016. FINDINGS: Small right pleural effusion has decreased in size. The heart remains mildly enlarged. No pneumothorax. Left-sided dual-chamber pacemaker. Mild diffuse interstitial thickening. This is likely chronic. This is also unchanged. Right basilar linear densities favor subsegmental atelectasis. IMPRESSION: 1. Decrease in size in the small right pleural effusion. 2. Right basilar linear densities favor subsegmental atelectasis. This has also improved. 3. Stable cardiomegaly. Electronically signed by: Nolan Strange M.D. 08/03/2016 6:27 PM Dictated Date/Time: 08/03/2016 6:26 PM
--- NOTE | 2016-08-03 19:16 | EMERGENCY ROOM VISIT NOTE ---
History Report prepared by Ayan: Becky Bean Under the Supervision of: Dr. Yohannes De Los Santos D.O. First contact with patient: 16:44 Chief Complaint: ABDOMINAL PAIN Stated Complaint: PAIN IN RIGHT SIDE AB,DIZZY,COUGHING Nursing Triage Summary: triage note: pt reports pain in lower back for the past several weeks "it has moved around to my right abd over the past week." pt denies any injury. pt denies any nausea, vomitting, diarrhea. pt reports pain increases with movement. History of Present Illness The patient is a 76 year old female who presents to the Emergency Room with complaints of persistent back pain starting several weeks ago. She describes her discomfort as a soreness which is only present when she moves. She does not have the pain at rest. The pain is mostly present in the right side of her back. She has been taking Tylenol to no significant relief. She has numbness in her right leg which started several months ago when she had a hematoma. She denies any SOB, rash, abdominal pain, urinary symptoms, nausea, or vomiting. She denies any falls. She has been able to ambulate. She is no longer on blood thinners. She has a history of CHF and has a pacemaker. Source of History: patient Onset: several weeks Position: back Quality: other (sore) Timing: other (persistent) Modifying Factors (Worsening): movement Modifying Factors (Relieving): rest Associated Symptoms: + numbness (right leg), No SOB, No nausea, No vomiting , No abdominal pain, No urinary symptoms, No rash Review of Systems See HPI for pertinent positives & negatives. A total of 10 systems reviewed and were otherwise negative. Past Medical & Surgical Medical Problems: (1) Common bile duct (CBD) obstruction (2) GI bleed (3) Hypertension (4) Pacemaker (5) Pulmonary edema (6) Restless leg syndrome (7) Retroperitoneal bleed Family History No pertinent family history stated. Social History Smoking Status: Never Smoker Alcohol Use: occasionally Drug Use: none Marital Status: Housing Status: lives alone Occupation Status: retired Current/Historical Medications Scheduled Aspirin (Aspirin EC Low Dose), 81 MG PO DAILY Cholecalciferol (D 5000), 5,000 INTERUNIT PO DAILY Furosemide (Furosemide), 40 MG PO QAM Levothyroxine Sodium (Levothyroxine Sodium), 75 MCG PO DAILY Metoprolol Succ (Toprol Xl) (Toprol-Xl), 50 MG PO DAILY Pantoprazole (Protonix), 40 MG PO QAM Potassium Chloride (Micro-K Ext Rel), 20 MEQ PO DAILY Ropinirole (Requip), 1 MG PO DAILY Allergies Coded Allergies: No Known Allergies (Unverified , 08/03/16) Physical Exam Vital Signs Date Time Temp Pulse Resp B/P (MAP) Pulse Ox O2 Delivery O2 Flow Rate FiO2 08/03/16 20:07 65 22 98/67 95 Room Air 08/03/16 18:35 75 22 109/62 96 Room Air 08/03/16 18:06 74 08/03/16 17:30 72 18 104/63 92 Room Air 08/03/16 16:24 37.0 78 18 140/70 91 Room Air Physical Exam GENERAL: Patient is awake, alert, and in no acute distress. Patient is resting comfortably and showing no signs of anxiety EYES: The conjunctivae are clear. The pupils are round and reactive. EARS, NOSE, MOUTH AND THROAT: The nose is without any evidence of any deformity. Mucous membranes are moist tongue is midline NECK: The neck is nontender and supple. RESPIRATORY: Lung sounds diminished in both bases, faint rales in both bases, no tachypnea or conversational dyspnea. CARDIOVASCULAR: Regular rate and rhythm noted there no murmurs rubs or gallops normal S1 normal S2 GASTROINTESTINAL: The abdomen is mildly distended, but soft. No significant guarding or rigidity. BACK: No midline tenderness, ROM appears intact, right CVA tenderness to percussion MUSCULOSKELETAL/EXTREMITIES: There is no evidence of gross deformity full range of motion is noted in the hips and shoulders SKIN: There is trace pedal edema bilaterally. NEUROLOGIC: Patient is awake alert and oriented x3 strength is symmetric patellar reflexes are 1+ bilaterally Medical Decision & Procedures ER Provider Diagnostic Interpretation: X-ray results as stated below per interpretation by me and the radiologist. Radiology results as stated below per my review and radiologist interpretation: CHEST ONE VIEW PORTABLE HISTORY: Generalized abdominal pain. COMPARISON: Chest 05/25/2016. FINDINGS: Small right pleural effusion has decreased in size. The heart remains mildly enlarged. No pneumothorax. Left-sided dual-chamber pacemaker. Mild diffuse interstitial thickening. This is likely chronic. This is also unchanged. Right basilar linear densities favor subsegmental atelectasis. IMPRESSION: 1. Decrease in size in the small right pleural effusion. 2. Right basilar linear densities favor subsegmental atelectasis. This has also improved. 3. Stable cardiomegaly. Electronically signed by: Nolan Strange M.D. 08/03/2016 6:27 PM Dictated Date/Time: 08/03/2016 6:26 PM ABDOMEN AND PELVIS CT WITHOUT CONTRAST CT DOSE: 642.08 mGy.cm HISTORY: right flank pain TECHNIQUE: Multiaxial CT images of the abdomen and pelvis were performed without contrast. COMPARISON STUDY: Abdomen and pelvis CT 04/26/2016. FINDINGS: Small right pleural effusion. This is slightly decreased in size. Pacemaker wires are noted.] Densities favor subsegmental atelectasis. No acute fractures within the visualized osseous structures. The unenhanced liver, spleen, right adrenal gland, pancreas, and kidneys are unremarkable. No hydronephrosis. Stable 1.2 cm left adrenal gland nodule. The gallbladder appears to be contracted. The common bile duct appears to be distended. There are 2 focal areas of increased density within the common bile duct measuring 1 cm. These are consistent with common bile duct stones. Common bile duct is distended up to 2 cm. Right retroperitoneal fluid collection is significantly decreased in size. This currently measures a maximal diameter of 6 cm. The bladder, uterus, and ovaries are unremarkable. No bowel wall thickening or obstruction on this noncontrast study. Multiple small and large bowel diverticula are again noted. IMPRESSION: 1. Distended common bile duct. There are 2 stones within the distal common bile duct measuring 1 cm. ERCP is recommended for further evaluation. 2. The gallbladder is contracted. 3. Decrease in size in the 6 cm right retroperitoneal fluid collection. This favors a resolving hematoma. 4. Decrease in size in the small right pleural effusion. 5. Additional findings as described above. Electronically signed by: Nolan Strange M.D. 08/03/2016 5:59 PM Dictated Date/Time: 08/03/2016 5:52 PM Laboratory Results 08/03/16 17:01 Red Blood Count 4.45, Mean Corpuscular Volume 96.4, Mean Corpuscular Hemoglobin 31.5, Mean Corpuscular Hemoglobin Concent 32.6, Mean Platelet Volume 9.5, Neutrophils (%) (Auto) 86.8, Lymphocytes (%) (Auto) 4.9, Monocytes (%) (Auto) 7.7, Eosinophils (%) (Auto) 0.1, Basophils (%) (Auto) 0.2, Neutrophils # (Auto) 11.06, Lymphocytes # (Auto) 0.63, Monocytes # (Auto) 0.98, Eosinophils # (Auto) 0.01, Basophils # (Auto) 0.02 08/03/16 17:01 Test 08/03/16 17:01 08/03/16 18:05 White Blood Count 12.74 K/uL (4.8-10.8) Red Blood Count 4.45 M/uL (4.2-5.4) Hemoglobin 14.0 g/dL (12.0-16.0) Hematocrit 42.9 % (37-47) Mean Corpuscular Volume 96.4 fL (80-100) Mean Corpuscular Hemoglobin 31.5 pg (25-34) Mean Corpuscular Hemoglobin Concent 32.6 g/dl (32-36) Platelet Count 268 K/uL (130-400) Mean Platelet Volume 9.5 fL (7.4-10.4) Neutrophils (%) (Auto) 86.8 % Lymphocytes (%) (Auto) 4.9 % Monocytes (%) (Auto) 7.7 % Eosinophils (%) (Auto) 0.1 % Basophils (%) (Auto) 0.2 % Neutrophils # (Auto) 11.06 K/uL (1.4-6.5) Lymphocytes # (Auto) 0.63 K/uL (1.2-3.4) Monocytes # (Auto) 0.98 K/uL (0.11-0.59) Eosinophils # (Auto) 0.01 K/uL (0-0.5) Basophils # (Auto) 0.02 K/uL (0-0.2) RDW Standard Deviation 47.8 fL (36.4-46.3) RDW Coefficient of Variation 13.4 % (11.5-14.5) Immature Granulocyte % (Auto) 0.3 % Immature Granulocyte # (Auto) 0.04 K/uL (0.00-0.02) Prothrombin Time 10.7 SECONDS (9.0-12.0) Prothromb Time International Ratio 1.0 (0.9-1.1) Activated Partial Thromboplast Time 25.4 SECONDS (21.0-31.0) Partial Thromboplastin Ratio 1.0 Anion Gap 9.0 mmol/L (3-11) Est Creatinine Clear Calc Drug Dose 46.2 ml/min Estimated GFR () 55.7 Estimated GFR (Non- 48.1 BUN/Creatinine Ratio 15.5 (10-20) Calcium Level 8.9 mg/dl (8.5-10.1) Total Bilirubin 2.6 mg/dl (0.2-1) Direct Bilirubin 1.5 mg/dl (0-0.2) Aspartate Amino Transf (AST/SGOT) 424 U/L (15-37) Alanine Aminotransferase (ALT/SGPT) 224 U/L (12-78) Alkaline Phosphatase 313 U/L (45-117) Troponin I < 0.015 ng/ml (0-0.045) Total Protein 7.4 gm/dl (6.4-8.2) Albumin 3.5 gm/dl (3.4-5.0) Lipase 139 U/L (73-393) Urine Color DK YELLOW Urine Appearance CLEAR (CLEAR) Urine pH 5.5 (4.5-7.5) Urine Specific [place] 1.018 (1.000-1.030) Urine Protein NEG (NEG) Urine Glucose (UA) NEG (NEG) Urine Ketones NEG (NEG) Urine Occult Blood NEG (NEG) Urine Nitrite NEG (NEG) Urine Bilirubin 1+ (NEG) Urine Urobilinogen NEG (NEG) Urine Leukocyte Esterase TRACE (NEG) Urine WBC (Auto) 1-5 /hpf (0-5) Urine RBC (Auto) 0-4 /hpf (0-4) Urine Hyaline Casts (Auto) 1-5 /lpf (0-5) Urine Epithelial Cells (Auto) 20-30 /lpf (0-5) Urine Bacteria (Auto) NEG (NEG) Laboratory results per my review. Medications Administered Medications (Trade) Dose Ordered Sig/Angeles Route Start Time Stop Time Status Last Admin Dose Admin Piperacillin Sod/ Tazobactam Sod (Zosyn Iv) 4.5 gm NOW STAT IV 08/03/16 18:08 08/03/16 18:09 DC 08/03/16 18:41 4.5 GM Sodium Chloride 1,000 ml @ 125 mls/hr Q8H STAT IV 08/03/16 18:17 08/04/16 02:16 08/03/16 18:43 125 MLS/HR ECG Indication: back/shoulder pain Rate (beats per minute): 70 Rhythm: atrial fibrillation Findings: other (paced beats noted, diffuse T wave abnormality) Comparison ECG Date: 25-May-2016 Change: no significant change ED Course 1645: The patient was evaluated in room C11B. A complete history and physical examination were performed. 180: Zosyn Iv 4.5 gm IV. 181: NSS 1000 ml @ 125 mls/hr IV. 183: I discussed the patient's case with Dr. Aponte, [facility]. He agrees with the plan. 184: I discussed the patient's case with Dr. Johnston, [facility] hospitalist service. The patient will be evaluated for further management. 185: Upon reevaluation, the patient is resting comfortably. I discussed results and treatment plan with her. She verbalizes agreement and understanding. The patient will be evaluated for further management and care. Medical Decision Prior records/ancillary studies reviewed. Triage Nursing notes reviewed. Additional history obtained from the family. The patient's history was concerning for respiratory difficulties. Differential diagnosis: Etiologies such as infections, reactive airway disease, pneumonia, pneumothorax , COPD, CHF, cardiac ischemia, pulmonary embolism, musculoskeletal, gastrointestinal, as well as others were entertained. Medication Reconciliation: I attest that I have personally reviewed the patient' s current medications list. The patient is a 76-year-old female who presented to the emergency department for an evaluation of right sided pain. The patient has a history of atrial fibrillation and used to take oral anticoagulation but this was stopped in April of this year when the patient developed a spontaneous retroperitoneal hematoma. The patient started having right flank pain over the last few days. She was concerned that this could be related to the bleeding she had in the past. This reason CT the abdomen and pelvis was obtained which showed a resolving hematoma but also showed signs of cholecystitis with dilated common bile duct and distal common bile duct stones. The patient appears have an elevated white blood cell count as well as elevated liver function studies compared to previous. The patient was treated with a small amount of IV hydration because of her history of CHF as well as IV antibiotics. She did not wish to have any pain medication at this time. I discussed the patient's laboratory and radiographic studies with her. I also discussed her case with the on-call [facility] hospitalist as well as the GI physician who is seen her in the past. They've agreed to evaluate the patient for further management and disposition. Likely the patient will require an ERCP to further manage this condition and eventually may also need cholecystectomy. I discussed these with the patient and she is aware that they are a possibility. Consults Time Called: 1819 Consulting Physician: Dr. Aponte [facility] Returned Call: [phone] I discussed the patient's case with him. He agrees with the plan. Additional Consults: Time Called: 1837 Consulted Physician: Dr. Johnston, [facility] hospitalist service Returned Call: [phone] Additional Comments: I discussed the patient's case with him. The patient will be evaluated for further management. Impression Primary Impression: Cholecystitis Additional Impression: Right upper quadrant abdominal pain Scribe Attestation The scribe's documentation has been prepared under my direction and personally reviewed by me in its entirety. I confirm that the note above accurately reflects all work, treatment, procedures, and medical decision making performed by me. Departure Information Dispostion Being Evaluated By Hospitalist Referrals Lg Rodriguez MD (PCP) Patient Instructions My [facility] Problem Qualifiers
[2016-08-03] MEDS ORDERED: MoRPHine SULFATE 4 MG/ML 1 ML CARP\\VIAL IV PRN (20:00)
[2016-08-03] MEDS ORDERED: ONDANSETRON INJ 2 MG/ML 2 ML VIAL IV PRN (20:00)
[2016-08-03] MEDS ORDERED: MoRPHine SULFATE 2 MG/ML CARP IV PRN (20:00)
[2016-08-03 20:44] VITALS: BP 117/75; PULSE 69; TEMP 36.7; O2SAT 94
[2016-08-03 20:50] VITALS: BP 117/75; PULSE 69; TEMP 36.7; O2SAT 94; Ht 167.6 cm; Wt 86.2 kg
[2016-08-03] MEDS ORDERED: PIPERACILL/TAZOBAC CONSULT ACTIVE PRN (21:15)
[2016-08-03] MEDS ORDERED: PIPERACILL/TAZOBAC IV 3.375 GM in DEXTROSE 5% 100ML IV ONE (21:30)
[2016-08-03] MEDS: NSS + 20MEQ KCL 1000ML 1,000 ML IV SCH (21:37)
[2016-08-03] MEDS: RANITIDINE IV 50 MG in DEXTROSE 5% 100ML 100 ML IV SCH (21:48)
[2016-08-03] MEDS ORDERED: PIPERACILL/TAZOBAC IV 3.375 GM in DEXTROSE 5% 100ML 100 ML IV SCH (22:00)
--- NOTE | 2016-08-03 22:03 | History and Physical ---
History & Physical Date & Time of Service: Aug 03, 2016 at 22:03 Chief Complaint: Cholecystitis, Common Bile Duct Obstruction Primary Care Physician: Lg Rodriguez MD History of Present Illness Source: patient The patient is a 76-year-old female who presents to the emergency department with worsening right sided back pain that started several weeks ago. The pain is only present with movement. Today she also became dizzy and has been more fatigued. She has been taking Tylenol without relief. Her right leg is numb ever since the development of a retroperitoneal hematoma in April 2016 at which time she was on Plavix, that has since been discontinued. Past Medical/Surgical History Medical Problems: (1) Hypertension Status: Chronic (2) Pacemaker Status: Chronic (3) Restless leg syndrome Status: Chronic Social History Smoking Status: Former Smoker Drug Use: none Marital Status: Occupational Status: retired Immunizations History of Influenza Vaccine: No Multi-Drug Resistant Organisms History of MDRO: No Allergies Coded Allergies: No Known Allergies (Unverified , 08/03/16) Home Medications Scheduled Aspirin (Aspirin EC Low Dose), 81 MG PO DAILY Cholecalciferol (D 5000), 5,000 INTERUNIT PO DAILY Furosemide (Furosemide), 40 MG PO QAM Levothyroxine Sodium (Levothyroxine Sodium), 75 MCG PO DAILY Metoprolol Succ (Toprol Xl) (Toprol-Xl), 50 MG PO DAILY Pantoprazole (Protonix), 40 MG PO QAM Potassium Chloride (Micro-K Ext Rel), 20 MEQ PO DAILY Ropinirole (Requip), 1 MG PO DAILY Review of Systems The patient denies chest pain, palpitations, sore throat, fevers, chills, sweats , weight change, nausea, vomiting, pelvic pain, blood in urine or stool, dysuria , urinary frequency or urgency, headache, memory loss, rash, imbalance, numbness or tingling in arms, arthralgias or myalgias, neck pain, night sweats. The review of systems is otherwise negative other than for that already noted above, and at least 10 systems have been reviewed. Physical Exam Vital Signs Date Time Temp Pulse Resp B/P (MAP) Pulse Ox O2 Delivery O2 Flow Rate FiO2 08/03/16 20:50 36.7 69 20 117/75 94 Room Air 08/03/16 20:44 36.7 69 20 117/75 (89) 94 Room Air 08/03/16 20:07 65 22 98/67 95 Room Air 08/03/16 18:35 75 22 109/62 96 Room Air 08/03/16 18:06 74 08/03/16 17:30 72 18 104/63 92 Room Air 08/03/16 16:24 37.0 78 18 140/70 91 Room Air The patient is awake, well-developed and adequately nourished, alert and oriented 3, normocephalic and atraumatic, lying in bed and in no acute distress. HEENT--PERRL, EOMI, mucous membranes and oropharynx dry. Neck--supple, no JVD or bruits, thyroid normal, trachea midline, no adenopathy. Heart--irregularly irregular, no murmurs, rubs or gallops. Lungs--clear bilaterally with good air movement, no respiratory distress, no accessory muscle use. Abdomen--normal bowel sounds and soft, tender epigastric and right upper quadrant,, right side of abdomen and flank, nondistended, no hernias or masses, no organomegaly. Extremities--no cyanosis, clubbing or edema. There are good distal pulses b/l. Dermatologic--normal skin turgor, normal color, warm and dry, no abnormal lymph nodes, no rash. Neurologic--cranial nerves II through XII grossly intact. Rheumatologic--normal range of motion. Psychiatric--normal affect. Diagnostics Laboratory Results Results Past 24 Hours Test 08/03/16 17:01 08/03/16 18:05 Range/Units White Blood Count 12.74 4.8-10.8 K/uL Red Blood Count 4.45 4.2-5.4 M/uL Hemoglobin 14.0 12.0-16.0 g/dL Hematocrit 42.9 37-47 % Mean Corpuscular Volume 96.4 80-100 fL Mean Corpuscular Hemoglobin 31.5 25-34 pg Mean Corpuscular Hemoglobin Concent 32.6 32-36 g/dl Platelet Count 268 130-400 K/uL Mean Platelet Volume 9.5 7.4-10.4 fL Neutrophils (%) (Auto) 86.8 % Lymphocytes (%) (Auto) 4.9 % Monocytes (%) (Auto) 7.7 % Eosinophils (%) (Auto) 0.1 % Basophils (%) (Auto) 0.2 % Neutrophils # (Auto) 11.06 1.4-6.5 K/uL Lymphocytes # (Auto) 0.63 1.2-3.4 K/uL Monocytes # (Auto) 0.98 0.11-0.59 K/uL Eosinophils # (Auto) 0.01 0-0.5 K/uL Basophils # (Auto) 0.02 0-0.2 K/uL RDW Standard Deviation 47.8 36.4-46.3 fL RDW Coefficient of Variation 13.4 11.5-14.5 % Immature Granulocyte % (Auto) 0.3 % Immature Granulocyte # (Auto) 0.04 0.00-0.02 K/uL Prothrombin Time 10.7 9.0-12.0 SECONDS Prothromb Time International Ratio 1.0 0.9-1.1 Activated Partial Thromboplast Time 25.4 21.0-31.0 SECONDS Partial Thromboplastin Ratio 1.0 Sodium Level 139 136-145 mmol/L Potassium Level 3.5 3.5-5.1 mmol/L Chloride Level 105 98-107 mmol/L Carbon Dioxide Level 25 21-32 mmol/L Anion Gap 9.0 3-11 mmol/L Blood Urea Nitrogen 17 7-18 mg/dl Creatinine 1.10 0.60-1.20 mg/dl Est Creatinine Clear Calc Drug Dose 46.2 ml/min Estimated GFR () 55.7 Estimated GFR (Non- 48.1 BUN/Creatinine Ratio 15.5 10-20 Random Glucose 105 70-99 mg/dl Calcium Level 8.9 8.5-10.1 mg/dl Total Bilirubin 2.6 0.2-1 mg/dl Direct Bilirubin 1.5 0-0.2 mg/dl Aspartate Amino Transf (AST/SGOT) 424 15-37 U/L Alanine Aminotransferase (ALT/SGPT) 224 12-78 U/L Alkaline Phosphatase 313 45-117 U/L Troponin I < 0.015 0-0.045 ng/ml Total Protein 7.4 6.4-8.2 gm/dl Albumin 3.5 3.4-5.0 gm/dl Lipase 139 73-393 U/L Urine Color DK YELLOW Urine Appearance CLEAR CLEAR Urine pH 5.5 4.5-7.5 Urine Specific [place] 1.018 1.000-1.030 Urine Protein NEG NEG Urine Glucose (UA) NEG NEG Urine Ketones NEG NEG Urine Occult Blood NEG NEG Urine Nitrite NEG NEG Urine Bilirubin 1+ NEG Urine Urobilinogen NEG NEG Urine Leukocyte Esterase TRACE NEG Urine WBC (Auto) 1-5 0-5 /hpf Urine RBC (Auto) 0-4 0-4 /hpf Urine Hyaline Casts (Auto) 1-5 0-5 /lpf Urine Epithelial Cells (Auto) 20-30 0-5 /lpf Urine Bacteria (Auto) NEG NEG Diagnostic Radiology Patient Name: ELENA JONES Unit Number: [id number] Dictated: 08/03/161825 Transcribed: 08/03/161825 [facility] Printed Date/Time: [~ rep prt dt]/[~ rep prt tm] [~ rep ct labl] - [~ rep ct ivnm] [facility] Radiology Department [place] [id number] Dictated: 08/03/161825 Transcribed: 08/03/161825 [facility] Printed Date/Time: [~ rep prt dt]/[~ rep prt tm] [~ rep ct labl] - [~ rep ct ivnm] CHEST ONE VIEW PORTABLE HISTORY: Generalized abdominal pain. COMPARISON: Chest 05/25/2016. FINDINGS: Small right pleural effusion has decreased in size. The heart remains mildly enlarged. No pneumothorax. Left-sided dual-chamber pacemaker. Mild diffuse interstitial thickening. This is likely chronic. This is also unchanged. Right basilar linear densities favor subsegmental atelectasis. IMPRESSION: 1. Decrease in size in the small right pleural effusion. 2. Right basilar linear densities favor subsegmental atelectasis. This has also improved. 3. Stable cardiomegaly. Electronically signed by: Nolan Strange M.D. 08/03/2016 6:27 PM Dictated Date/Time: 08/03/2016 6:26 PM The status of this report is Signed. Draft = Not yet reviewed or approved by Radiologist. Signed = Reviewed and approved by Radiologist. <AttendingPhy></AttendingPhy> <FamilyPhy>Lg Rodriguez MD</FamilyPhy> < PrimaryPhy>Lg Rodriguez MD</PrimaryPhy> <UnitNumber>[id number]</UnitNumber> < VisitNumber>[id number]</VisitNumber> <PatientName>ELENA JONES</PatientName> < DateOfBirth>1940</DateOfBirth> <Location>[facility]</Location> <ServiceDate></ServiceDate> <MNE>ESINDI</MNE> <OrderingPhy>Yohannes De Los Santos D.O.</ OrderingPhy> <OrderingPhyMNE>f rep ord dr ortega</OrderingPhyMNE> <DictatingPhyMNE> f rep dict dr ortega</DictatingPhyMNE> <CCListMNE>f rep ct mne</CCListMNE> < AdmittingPhyMNE>f pt admit dr ortega</AdmittingPhyMNE> <AttendingPhyMNE>f pt attend dr ortega</AttendingPhyMNE> <ConsultingPhyMNE>f pt consult dr ortega</ConsultingPhyMNE> <FamilyPhyMNE>f pt fam dr ortega</FamilyPhyMNE> <OtherPhyMNE>f pt other dr ortega</OtherPhyMNE> < PrimaryPhyMNE>f pt prim care dr ortega</PrimaryPhyMNE> <ReferringPhyMNE>f pt referring dr ortega</ReferringPhyMNE> Patient Name: ELENA JONES Unit Number: [id number] Dictated: 08/03/161751 Transcribed: 08/03/161751 [facility] Printed Date/Time: [~ rep prt dt]/[~ rep prt tm] [~ rep ct labl] - [~ rep ct ivnm] [facility] [place] [address] Dictated: 08/03/161751 Transcribed: 08/03/161751 [facility] Printed Date/Time: [~ rep prt dt]/[~ rep prt tm] [~ rep ct labl] - [~ rep ct ivnm] ABDOMEN AND PELVIS CT WITHOUT CONTRAST CT DOSE: 642.08 mGy.cm HISTORY: right flank pain TECHNIQUE: Multiaxial CT images of the abdomen and pelvis were performed without contrast. COMPARISON STUDY: Abdomen and pelvis CT 04/26/2016. FINDINGS: Small right pleural effusion. This is slightly decreased in size. Pacemaker wires are noted.] Densities favor subsegmental atelectasis. No acute fractures within the visualized osseous structures. The unenhanced liver, spleen, right adrenal gland, pancreas, and kidneys are unremarkable. No hydronephrosis. Stable 1.2 cm left adrenal gland nodule. The gallbladder appears to be contracted. The common bile duct appears to be distended. There are 2 focal areas of increased density within the common bile duct measuring 1 cm. These are consistent with common bile duct stones. Common bile duct is distended up to 2 cm. Right retroperitoneal fluid collection is significantly decreased in size. This currently measures a maximal diameter of 6 cm. The bladder, uterus, and ovaries are unremarkable. No bowel wall thickening or obstruction on this noncontrast study. Multiple small and large bowel diverticula are again noted. IMPRESSION: 1. Distended common bile duct. There are 2 stones within the distal common bile duct measuring 1 cm. ERCP is recommended for further evaluation. 2. The gallbladder is contracted. 3. Decrease in size in the 6 cm right retroperitoneal fluid collection. This favors a resolving hematoma. 4. Decrease in size in the small right pleural effusion. 5. Additional findings as described above. Electronically signed by: Nolan Strange M.D. 08/03/2016 5:59 PM Dictated Date/Time: 08/03/2016 5:52 PM The status of this report is Signed. Draft = Not yet reviewed or approved by Radiologist. Signed = Reviewed and approved by Radiologist. <AttendingPhy></AttendingPhy> <FamilyPhy>Lg Rodriguez MD</FamilyPhy> < PrimaryPhy>Lg Rodriguez MD</PrimaryPhy> <UnitNumber>[id number]</UnitNumber> < VisitNumber>[id number]</VisitNumber> <PatientName>ELENA JONES</PatientName> < DateOfBirth>1940</DateOfBirth> <Location>[facility]</Location> <ServiceDate></ServiceDate> <MNE>ESINDI</MNE> <OrderingPhy>Yohannes De Los Santos D.O.</ OrderingPhy> <OrderingPhyMNE>f rep ord dr ortega</OrderingPhyMNE> <DictatingPhyMNE> f rep dict dr ortega</DictatingPhyMNE> <CCListMNE>f rep ct mne</CCListMNE> < AdmittingPhyMNE>f pt admit dr ortega</AdmittingPhyMNE> <AttendingPhyMNE>f pt attend dr ortega</AttendingPhyMNE> <ConsultingPhyMNE>f pt consult dr ortega</ConsultingPhyMNE> <FamilyPhyMNE>f pt fam dr ortega</FamilyPhyMNE> <OtherPhyMNE>f pt other dr ortega</OtherPhyMNE> < PrimaryPhyMNE>f pt prim care dr ortega</PrimaryPhyMNE> <ReferringPhyMNE>f pt referring dr ortega</ReferringPhyMNE> EKG EKG shows atrial fibrillation at 70 bpm, left anterior fascicular block, no acute ST-T changes. Impression Assessment and Plan Common bile duct obstruction with 2 stones and contracted gallbladder, with abnormal liver enzymes--the patient will be admitted to the medical surgical floor and made nothing by mouth. She'll be placed on IV fluids, Zosyn IV, Zofran IV. We'll follow serial CBC with differential, chemistry profile and magnesium levels. Dr. Aponte from gastroenterology has been consulted for probable ERCP. 6 cm resolving right retroperitoneal hematoma--this was initially noted during admission in April. She will continue off of Plavix, and aspirin will be held at this time as well preoperatively. Atrial fibrillation/hypertension--hold furosemide and potassium chloride, continue metoprolol succinate 50 mg by mouth every morning with hold parameters. Restless leg syndrome--continue ropinirole 1 mg by mouth at bedtime. GERD--continue pantoprazole. Level of Care Med/Surg Advanced Directives Existing Advance Directive: No Existing Living Will: Yes Existing Power of Electromatic Typist: Yes Resuscitation Status FULL RESUSCITATION VTE Prophylaxis VTE Risk Assessment Done? Y/N: Yes Risk Level: Moderate Given or contraindicated: SCD's
[2016-08-03] MEDS ORDERED: ROPINIROLE HCL 1 MG TAB PO STA (22:18)
[2016-08-03 22:56] VITALS: BP 98/61; PULSE 70; TEMP 36.7; O2SAT 92
[2016-08-04] VITALS (13 sets, daily range): BP systolic 90–142; BP diastolic 64–92; PULSE 61–92; TEMP 36.4–37.1; O2SAT 92–100
[2016-08-04] MEDS: PIPERACILL/TAZOBAC IV 3.375 GM in DEXTROSE 5% 100ML IV SCH ×3 (02:07→18:22)
[2016-08-04] MEDS: RANITIDINE IV 50 MG in DEXTROSE 5% 100ML 100 ML IV SCH (05:39)
[2016-08-04] MEDS: LEVOTHYROXINE 75 MCG TAB PO SCH (05:40)
[2016-08-04] MEDS: NSS + 20MEQ KCL 1000ML 1,000 ML IV SCH ×2 (05:47→17:16)
[2016-08-04 06:13] LABS: BASO % 0.2 %; BASO ABS # 0.02 K/uL (0-0.2); COMPLETE YES; EOS % 0.9 %; IG% 0.1 %; LYMPH % 9.2 %; LYMPH ABS # 0.84 K/uL (1.2-3.4); MEAN CELL VOLUME 95.6 fL (80-100); MEAN CORPUSCULAR HEMOGLOBIN 31.6 pg (25-34); MEAN CORPUSCULAR HGB CONC 33.1 g/dl (32-36); MEAN PLATELET VOLUME 9.4 fL (7.4-10.4); MONO % 7.8 %; NEUT % 81.8 %; PLATELET COUNT 242 K/uL (130-400); RED BLOOD COUNT 4.08 M/uL (4.2-5.4)
[2016-08-04 06:24] LABS: INR 1.1 (0.9-1.1); PROTHROMBIN TIME (PATIENT) 11.4 SECONDS (9.0-12.0)
[2016-08-04 06:59] LABS: BUN/CREATININE RATIO 13.7 (10-20); CALCIUM 8.8 mg/dl (8.5-10.1); MAGNESIUM 2.2 mg/dl (1.8-2.4); POTASSIUM 3.3 mmol/L (3.5-5.1)
--- NOTE | 2016-08-04 09:03 | Gastroenterology Progress Note ---
Progress Note Date of Service: Aug 04, 2016 Subjective Pt evaluation today including: conversation w/ patient, physical exam, chart review, lab review, review of studies, review of inpatient medication list Medications Current Inpatient Medications Medications (Trade) Dose Ordered Sig/[place] Route Start Time Stop Time Status Last Admin Dose Admin Metoprolol Succinate (Toprol Xl Tab) 50 mg DAILY PO 08/04/16 09:00 09/03/16 08:59 Levothyroxine Sodium (Synthroid Tab) 75 mcg DAILYBB PO 08/04/16 06:00 09/03/16 06:59 08/04/16 05:40 75 MCG Ranitidine HCl 50 mg/Dextrose 102 ml @ 200 mls/hr Q8H IV 08/03/16 22:00 09/02/16 21:59 08/04/16 05:39 200 MLS/HR Ondansetron HCl (Zofran Inj) 4 mg Q6H PRN IV 08/03/16 20:00 09/02/16 19:59 Potassium Chloride/Sodium Chloride 1,000 ml @ 100 mls/hr Q10H IV 08/03/16 21:00 09/02/16 20:59 08/04/16 05:47 100 MLS/HR Morphine Sulfate (MoRPHine SULFATE INJ) 2 mg Q2H PRN IV 08/03/16 20:00 08/17/16 19:59 08/04/16 04:41 2 MG Morphine Sulfate (MoRPHine SULFATE INJ) 4 mg Q2H PRN IV 08/03/16 20:00 08/17/16 19:59 Piperacillin Sod/ Tazobactam Sod 3.375 gm/Dextrose 115 ml @ 28.75 mls/ hr Q8H IV 08/04/16 02:00 08/14/16 01:59 08/04/16 02:07 28.75 MLS/HR Piperacillin Sod/ Tazobactam Sod (Consult) 1 ea UD PRN N/A 08/03/16 21:15 09/02/16 21:14 Ropinirole HCl (Requip Tab) 1 mg HS PO 08/04/16 21:00 09/03/16 20:59 Objective Vital Signs Date Time Temp Pulse Resp B/P (MAP) Pulse Ox O2 Delivery O2 Flow Rate FiO2 08/04/16 08:40 92 Room Air 08/04/16 07:47 Room Air 08/04/16 07:46 37.1 65 21 142/92 (109) 92 Room Air 08/03/16 23:30 Room Air 08/03/16 22:56 36.7 70 18 98/61 (73) 92 Room Air 08/03/16 20:50 36.7 69 20 117/75 94 Room Air 08/03/16 20:44 36.7 69 20 117/75 (89) 94 Room Air 08/03/16 20:07 65 22 98/67 95 Room Air 08/03/16 18:35 75 22 109/62 96 Room Air 08/03/16 18:06 74 08/03/16 17:30 72 18 104/63 92 Room Air 08/03/16 16:24 37.0 78 18 140/70 91 Room Air Physical Exam Abdomen: normal bowel sounds, non tender, soft, no organomegaly, no pulsatile mass Laboratory Results Last 24 Hours Test 08/03/16 17:01 08/03/16 18:05 08/04/16 05:55 White Blood Count 12.74 K/uL 9.10 K/uL Red Blood Count 4.45 M/uL 4.08 M/uL Hemoglobin 14.0 g/dL 12.9 g/dL Hematocrit 42.9 % 39.0 % Mean Corpuscular Volume 96.4 fL 95.6 fL Mean Corpuscular Hemoglobin 31.5 pg 31.6 pg Mean Corpuscular Hemoglobin Concent 32.6 g/dl 33.1 g/dl Platelet Count 268 K/uL 242 K/uL Mean Platelet Volume 9.5 fL 9.4 fL Neutrophils (%) (Auto) 86.8 % 81.8 % Lymphocytes (%) (Auto) 4.9 % 9.2 % Monocytes (%) (Auto) 7.7 % 7.8 % Eosinophils (%) (Auto) 0.1 % 0.9 % Basophils (%) (Auto) 0.2 % 0.2 % Neutrophils # (Auto) 11.06 K/uL 7.44 K/uL Lymphocytes # (Auto) 0.63 K/uL 0.84 K/uL Monocytes # (Auto) 0.98 K/uL 0.71 K/uL Eosinophils # (Auto) 0.01 K/uL 0.08 K/uL Basophils # (Auto) 0.02 K/uL 0.02 K/uL RDW Standard Deviation 47.8 fL 46.7 fL RDW Coefficient of Variation 13.4 % 13.3 % Immature Granulocyte % (Auto) 0.3 % 0.1 % Immature Granulocyte # (Auto) 0.04 K/uL 0.01 K/uL Prothrombin Time 10.7 SECONDS 11.4 SECONDS Prothromb Time International Ratio 1.0 1.1 Activated Partial Thromboplast Time 25.4 SECONDS 27.1 SECONDS Partial Thromboplastin Ratio 1.0 1.0 Sodium Level 139 mmol/L 141 mmol/L Potassium Level 3.5 mmol/L 3.3 mmol/L Chloride Level 105 mmol/L 106 mmol/L Carbon Dioxide Level 25 mmol/L 25 mmol/L Anion Gap 9.0 mmol/L 10.0 mmol/L Blood Urea Nitrogen 17 mg/dl 14 mg/dl Creatinine 1.10 mg/dl 1.00 mg/dl Est Creatinine Clear Calc Drug Dose 46.2 ml/min 50.8 ml/min Estimated GFR () 55.7 62.5 Estimated GFR (Non- 48.1 53.9 BUN/Creatinine Ratio 15.5 13.7 Random Glucose 105 mg/dl 109 mg/dl Calcium Level 8.9 mg/dl 8.8 mg/dl Total Bilirubin 2.6 mg/dl 4.6 mg/dl Direct Bilirubin 1.5 mg/dl 3.1 mg/dl Aspartate Amino Transf (AST/SGOT) 424 U/L 200 U/L Alanine Aminotransferase (ALT/SGPT) 224 U/L 194 U/L Alkaline Phosphatase 313 U/L 255 U/L Troponin I < 0.015 ng/ml Total Protein 7.4 gm/dl 6.6 gm/dl Albumin 3.5 gm/dl 3.0 gm/dl Lipase 139 U/L 63 U/L Urine Color DK YELLOW Urine Appearance CLEAR Urine pH 5.5 Urine Specific [place] 1.018 Urine Protein NEG Urine Glucose (UA) NEG Urine Ketones NEG Urine Occult Blood NEG Urine Nitrite NEG Urine Bilirubin 1+ Urine Urobilinogen NEG Urine Leukocyte Esterase TRACE Urine WBC (Auto) 1-5 /hpf Urine RBC (Auto) 0-4 /hpf Urine Hyaline Casts (Auto) 1-5 /lpf Urine Epithelial Cells (Auto) 20-30 /lpf Urine Bacteria (Auto) NEG Magnesium Level 2.2 mg/dl Amylase Level 17 U/L Assessment and Plan Gi consult dictated sharifib [id number] CBD stone on CT--recommend ERCP and will schedule for today pending OR availability. Proc and risks explained to patient which include but not limited to anesthesia/medication, bleeding, perforation, aspiration, infection, and pancreatitis. Explained pancreatitis can occur up to 10% of patients and be severe and life threatening. Alternative surgical approach with CBD exploration. She is willing to proceed. Will need eventual Cholecystectomy also. Is on Abx now. Elevated LFTs from CBD obstruction R flank/upper back pain--likely from stones causing CBD obstruction. erosive esophagitis---recommend po protonix
[2016-08-04] MEDS: METOPROLOL SUCC 50MG EXT REL TAB PO SCH (09:20)
[2016-08-04] MEDS ORDERED: INDOMETHACIN 50 MG SUPP PR ONE (09:30)
[2016-08-04] MEDS: PANTOprazole SOD 40 MG TAB PO SCH (09:43)
[2016-08-04] MEDS ORDERED: PROPOFOL IV EMULSION 10 MG/ML 20 ML VIAL IV ONE (10:58)
[2016-08-04] MEDS ORDERED: NEOSTIGMINE METHYLSULFATE 5 MG/5 ML SYR ONE (10:58)
[2016-08-04] MEDS ORDERED: GLYCOPYRROLATE INJ 0.2 MG/ML VIAL ONE ×2 (10:58→12:57)
[2016-08-04] MEDS ORDERED: LIDOCAINE HCL 2% 2 ML VIAL (20MG/ML) ONE (10:58)
[2016-08-04] MEDS ORDERED: FENTANYL CITRATE INJ 50 MCG/1 ML 2 ML VIAL ONE (10:58)
[2016-08-04] MEDS ORDERED: ROCURONIUM BROMIDE 10 MG/ML 5 ML VIAL ONE (10:58)
[2016-08-04] MEDS ORDERED: ONDANSETRON INJ 2 MG/ML 2 ML VIAL ONE (11:40)
[2016-08-04] MEDS ORDERED: PHENYLEPHRINE 100MCG/ML 5ML SYR ONE (11:41)
[2016-08-04] MEDS ORDERED: ONDANSETRON INJ 2 MG/ML 2 ML VIAL IV PRN (12:30)
[2016-08-04] MEDS ORDERED: ATROPINE SULFATE 0.1 MG/ML 5ML SYR IV PRN (12:30)
[2016-08-04] MEDS ORDERED: PROMETHAZINE HCL INJ 6.25 MG in SODIUM CHLORIDE 0.9% 50ML 50 ML IV PRN (12:30)
[2016-08-04] MEDS ORDERED: EpHEDrine SULFATE INJ 50 MG/ML AMP IV PRN (12:30)
[2016-08-04] MEDS ORDERED: FENTANYL CITRATE INJ 50 MCG/1 ML 2 ML VIAL IV PRN (12:30)
--- NOTE | 2016-08-04 13:50 | GI REPORT ---
Procedure Date: 08/04/2016 11:08 AM Procedure: ERCP Indications: Bile duct stone(s), Elevated aspartate transaminase (AST), Elevated alanine transaminase (ALT), Elevated bilirubin Medicines: General Anesthesia Complications: No immediate complications. Estimated Blood Loss: Estimated blood loss was minimal. Procedure: Pre-Anesthesia Assessment: - The risks and benefits of the procedure and the sedation options and risks were discussed with the patient. All questions were answered and informed consent was obtained. - Patient identification and proposed procedure were verified prior to the procedure by the physician, the nurse, the anesthesiologist, the environment artist and the aircraft launch and recovery technician. The procedure was verified in the procedure room. - Procedure and risks explained to patient which include but not limited to medication reaction, bleeding, perforation, aspiration , infection, pancreatitis. Judicious gas insufflation was used and gas removal done on the way out. The lumen was always visualized when advancing the scope. Prep was good. Washes and suctioning used as needed to get good visualization of the mucosa. Retroflexion to look at the fundus and cardia of the stomach and GE junction was done. After obtaining informed consent, the scope was passed by feel blind (side viewing scope so no direct lumen view) throughout esophgus then direct vision remainder of study. . Throughout the procedure, the patient's blood pressure, pulse, and oxygen saturations were monitored continuously. The SCOPE was introduced through the mouth, and advanced to the duodenum and used to cannulate the bile duct. The ERCP was accomplished without difficulty from a procedural or sedation standpoint. See findings for amount of stone material seen. . The patient tolerated the procedure well. Findings: The car loader film was normal. The upper GI tract was traversed under direct vision without detailed examination. The major papilla was normal. 0.035 Acrobat wire was passed into the biliary tree. The Fusion sphincterotome was passed over the guidewire and the bile duct was then deeply cannulated. Contrast was injected. I personally interpreted the bile duct images. There was brisk flow of contrast through the ducts. Image quality was excellent. Contrast extended to the hepatic ducts. The common bile duct and common hepatic duct were severely dilated, with a stone causing an obstruction. The largest diameter was 20 mm. The common bile duct contained filling defect(s) thought to be a stone and sludge. A 12 mm biliary sphincterotomy was made with a Fusion sphincterotome. There was self limited oozing from the sphincterotomy which did not require treatment. To discover objects, the biliary tree was swept with a 15 mm balloon starting at the bifurcation. Many stones were removed. A few stones remained. To discover objects, the biliary tree was swept with a basket starting at the lower third of the main duct. A few stones were removed. A few stones remained. Because after multiple passes with balloon(s) and basket sludge and stone material was removed on each pass, I am not convinced the duct was completely cleared. One 10 Fr by 7 cm plastic stent with a full external pigtail and a full internal pigtail was placed into the common bile duct. The stent was in good position. Good flow of bile noted after the stent placed. No pus noted throughout procedure. Impression: - The common bile duct and common hepatic duct were severely dilated, with multiple stones and sludge causing an obstruction. - The stone and sludge confirmed on cholangiogram - A sphincterotomy was performed. - The biliary tree was swept with multiple balloons. - The biliary tree was swept with a basket. - One plastic stent was placed into the common bile duct. - Choledocholithiasis was found. Partial removal was accomplished with biliary sphincterotomy; a stent was inserted. Recommendation: - [facility]. - Recommend cholecystectomy and then elective repeat ERCP with stent removal to clear rest of the duct. - The findings and recommendations were discussed with the patient's family (daughter and son in law). Sherwin Aponte M.D. Sherwin Aponte MD 08/04/2016 1:50:07 PM This report has been signed electronically. Note Initiated On: 08/04/2016 11:08 AM I attest to the content of the Intraoperative Record and orders documented therein, exceptions below
--- NOTE | 2016-08-04 14:08 | Progress Note ---
Progress Note Date of Service Aug 04, 2016. Progress Note Pt awake and alert s/p ERCP denies abd pain. Went over results of procedure briefly.
--- NOTE | 2016-08-04 14:10 | DIAGNOSTIC IMAGING REPORT ---
ERCP BILIARY PANCREATIC CLINICAL HISTORY: CBD stones on CT COMPARISON STUDY: CT 08/03/2016 FLUOROSCOPY TIME: 8 minutes 40 seconds. FINDINGS: Retrograde opacification of the biliary duct system shows distention of the common bile duct as well as intrahepatic ducts. This is followed by placement of a common bile duct stent. IMPRESSION: Common bile duct stent placement. Distended biliary ductal system. Electronically signed by: Gustavo Lamas M.D. 08/04/2016 2:09 PM Dictated Date/Time: 08/04/2016 2:07 PM
[2016-08-04] MEDS ORDERED: GLUCAGON FOR INJ 1 MG VIAL ONE (14:21)
--- NOTE | 2016-08-04 14:21 | Progress Note ---
Subjective Date of Service: Aug 04, 2016. Subjective Pt evaluation today including: conversation w/ patient, physical exam, lab review, review of studies, conversation w/ performance consultant, review of inpatient medication list Pain: RUQ pain, controlled PO Intake: NPO Voiding: no voiding problems patient seen this AM prior to ERCP she was resting comfortably, c/o mild RUQ pain, no nausea or vomiting, no fevers reviewed ERCP results, sphincterotomy with stone removal, biliary stent placed plan for cholecystectomy Problem List Medical Problems: (1) Bilateral pneumonia Status: Acute (2) CHF (congestive heart failure) Status: Acute (3) Cholecystitis Status: Acute (4) Elevated INR Status: Acute (5) Hematoma of right iliopsoas muscle Status: Acute (6) Hypoxia Status: Acute (7) Right upper quadrant abdominal pain Status: Acute (8) Supratherapeutic INR Status: Acute Review of Systems Abdomen: + pain (RUQ) All Other Systems: Reviewed and Negative Medications Current Inpatient Medications Medications (Trade) Dose Ordered Sig/Angeles Route Start Time Stop Time Status Last Admin Dose Admin Metoprolol Succinate (Toprol Xl Tab) 50 mg DAILY PO 08/04/16 09:00 09/03/16 08:59 08/04/16 09:20 50 MG Levothyroxine Sodium (Synthroid Tab) 75 mcg DAILYBB PO 08/04/16 06:00 09/03/16 06:59 08/04/16 05:40 75 MCG Ondansetron HCl (Zofran Inj) 4 mg Q6H PRN IV 08/03/16 20:00 09/02/16 19:59 Potassium Chloride/Sodium Chloride 1,000 ml @ 100 mls/hr Q10H IV 08/03/16 21:00 09/02/16 20:59 08/04/16 05:47 100 MLS/HR Morphine Sulfate (MoRPHine SULFATE INJ) 2 mg Q2H PRN IV 08/03/16 20:00 08/17/16 19:59 08/04/16 04:41 2 MG Morphine Sulfate (MoRPHine SULFATE INJ) 4 mg Q2H PRN IV 08/03/16 20:00 08/17/16 19:59 Piperacillin Sod/ Tazobactam Sod 3.375 gm/Dextrose 115 ml @ 28.75 mls/ hr Q8H IV 08/04/16 02:00 08/14/16 01:59 08/04/16 09:20 28.75 MLS/HR Piperacillin Sod/ Tazobactam Sod (Consult) 1 ea UD PRN N/A 08/03/16 21:15 09/02/16 21:14 Ropinirole HCl (Requip Tab) 1 mg HS PO 08/04/16 21:00 09/03/16 20:59 Pantoprazole Sodium (Protonix Tab) 40 mg DAILYBB PO 08/04/16 09:30 09/03/16 09:29 08/04/16 09:43 40 MG Fentanyl Citrate (Fentanyl Inj) 50 mcg Q5M PRN IV 08/04/16 12:30 08/04/16 17:30 Ondansetron HCl (Zofran Inj) 4 mg ONE PRN IV 08/04/16 12:30 08/04/16 17:30 Promethazine HCl 6.25 mg/Sodium Chloride 50.25 ml @ 202 mls/hr ONE PRN IV 08/04/16 12:30 08/04/16 17:30 Ephedrine Sulfate (EpHEDrine SULFATE INJ) 5 mg Q5M PRN IV 08/04/16 12:30 08/04/16 17:30 Atropine Sulfate (Atropine Sulfate 0.1MG/Ml Inj) 0.5 mg Q1M PRN IV 08/04/16 12:30 08/04/16 17:30 Objective Vital Signs Date Time Temp Pulse Resp B/P (MAP) Pulse Ox O2 Delivery O2 Flow Rate FiO2 08/04/16 13:55 60 29 171/80 94 Mask 8 08/04/16 13:45 61 25 144/93 96 Mask 10 08/04/16 13:35 74 25 140/99 96 Mask 10 08/04/16 13:28 36.0 76 20 173/81 97 Mask 10 08/04/16 08:40 92 Room Air 08/04/16 07:47 Room Air 08/04/16 07:46 37.1 65 21 142/92 (109) 92 Room Air 08/03/16 23:30 Room Air 08/03/16 22:56 36.7 70 18 98/61 (73) 92 Room Air 08/03/16 20:50 36.7 69 20 117/75 94 Room Air 08/03/16 20:44 36.7 69 20 117/75 (89) 94 Room Air 08/03/16 20:07 65 22 98/67 95 Room Air 08/03/16 18:35 75 22 109/62 96 Room Air 08/03/16 18:06 74 08/03/16 17:30 72 18 104/63 92 Room Air 08/03/16 16:24 37.0 78 18 140/70 91 Room Air Physical Exam General Appearance: WD/WN, no apparent distress Neck: supple, no adenopathy, no JVD, trachea midline Respiratory/Chest: chest non-tender, lungs clear, normal breath sounds, no respiratory distress, no accessory muscle use Cardiovascular: regular rate, rhythm, no edema, no gallop, no JVD, no murmur Abdomen: normal bowel sounds, soft, no organomegaly, + tenderness (RUQ, no rebound or rigidity) Extremities: normal range of motion, non-tender, normal inspection, no pedal edema, no calf tenderness Neurologic/Psychiatric: branch specialist II-XII nml as tested, no motor/sensory deficits, alert, normal mood/affect, oriented x 3 Skin: normal color, warm/dry, no rash Lymphatic: no adenopathy Laboratory Results Last 24 Hours Test 08/03/16 17:01 08/03/16 18:05 08/04/16 05:55 White Blood Count 12.74 K/uL 9.10 K/uL Red Blood Count 4.45 M/uL 4.08 M/uL Hemoglobin 14.0 g/dL 12.9 g/dL Hematocrit 42.9 % 39.0 % Mean Corpuscular Volume 96.4 fL 95.6 fL Mean Corpuscular Hemoglobin 31.5 pg 31.6 pg Mean Corpuscular Hemoglobin Concent 32.6 g/dl 33.1 g/dl Platelet Count 268 K/uL 242 K/uL Mean Platelet Volume 9.5 fL 9.4 fL Neutrophils (%) (Auto) 86.8 % 81.8 % Lymphocytes (%) (Auto) 4.9 % 9.2 % Monocytes (%) (Auto) 7.7 % 7.8 % Eosinophils (%) (Auto) 0.1 % 0.9 % Basophils (%) (Auto) 0.2 % 0.2 % Neutrophils # (Auto) 11.06 K/uL 7.44 K/uL Lymphocytes # (Auto) 0.63 K/uL 0.84 K/uL Monocytes # (Auto) 0.98 K/uL 0.71 K/uL Eosinophils # (Auto) 0.01 K/uL 0.08 K/uL Basophils # (Auto) 0.02 K/uL 0.02 K/uL RDW Standard Deviation 47.8 fL 46.7 fL RDW Coefficient of Variation 13.4 % 13.3 % Immature Granulocyte % (Auto) 0.3 % 0.1 % Immature Granulocyte # (Auto) 0.04 K/uL 0.01 K/uL Prothrombin Time 10.7 SECONDS 11.4 SECONDS Prothromb Time International Ratio 1.0 1.1 Activated Partial Thromboplast Time 25.4 SECONDS 27.1 SECONDS Partial Thromboplastin Ratio 1.0 1.0 Sodium Level 139 mmol/L 141 mmol/L Potassium Level 3.5 mmol/L 3.3 mmol/L Chloride Level 105 mmol/L 106 mmol/L Carbon Dioxide Level 25 mmol/L 25 mmol/L Anion Gap 9.0 mmol/L 10.0 mmol/L Blood Urea Nitrogen 17 mg/dl 14 mg/dl Creatinine 1.10 mg/dl 1.00 mg/dl Est Creatinine Clear Calc Drug Dose 46.2 ml/min 50.8 ml/min Estimated GFR () 55.7 62.5 Estimated GFR (Non- 48.1 53.9 BUN/Creatinine Ratio 15.5 13.7 Random Glucose 105 mg/dl 109 mg/dl Calcium Level 8.9 mg/dl 8.8 mg/dl Total Bilirubin 2.6 mg/dl 4.6 mg/dl Direct Bilirubin 1.5 mg/dl 3.1 mg/dl Aspartate Amino Transf (AST/SGOT) 424 U/L 200 U/L Alanine Aminotransferase (ALT/SGPT) 224 U/L 194 U/L Alkaline Phosphatase 313 U/L 255 U/L Troponin I < 0.015 ng/ml Total Protein 7.4 gm/dl 6.6 gm/dl Albumin 3.5 gm/dl 3.0 gm/dl Lipase 139 U/L 63 U/L Urine Color DK YELLOW Urine Appearance CLEAR Urine pH 5.5 Urine Specific [place] 1.018 Urine Protein NEG Urine Glucose (UA) NEG Urine Ketones NEG Urine Occult Blood NEG Urine Nitrite NEG Urine Bilirubin 1+ Urine Urobilinogen NEG Urine Leukocyte Esterase TRACE Urine WBC (Auto) 1-5 /hpf Urine RBC (Auto) 0-4 /hpf Urine Hyaline Casts (Auto) 1-5 /lpf Urine Epithelial Cells (Auto) 20-30 /lpf Urine Bacteria (Auto) NEG Magnesium Level 2.2 mg/dl Amylase Level 17 U/L Assessment and Plan 76 yo female with h/o atrial fibrillation, more recent h/p spontaneous retroperitoneal hematoma, presents with RUQ pain, one week duration, CT showed CBD stones with dilation, gall bladder contracted - Choledocholithiasis with evidence of biliary dilation, contracted gall bladder , possible cholangitis treated initially with IV fluids, Zosyn IV, afebrile, WBC normalized and pain improved, Bili trended up slightly underwent ERCP on 08/04, sphincterotomy, stone removal and CBD stent placed will consult general surgery to evaluate for cholecystectomy will eventually need biliary stent removed repeat CMP and CBC tomorrow - Recent RPH: resolving on CT scan, continue to hold Coumadin, anti-platelets - Atrial fibrillation: continue metoprolol, no Coumadin due to RPH recently - Chronic diastolic HF: euvolemic, hold lasix in setting of infection/illness - Restless leg syndrome--continue ropinirole 1 mg by mouth at bedtime. - GERD--continue pantoprazole. - Hypothyroidism: Synthroid DVT prophylaxis: SCD
[2016-08-04 14:36] LABS: ISTAT ALLEN TEST Pass; ISTAT ARTERIAL BLOOD GAS HCO3 25 meq/L (19-24); ISTAT ARTERIAL BLOOD GAS PCO2 49 mmHg (35-46); ISTAT ARTERIAL BLOOD GAS PO2 75 mmHg (80-95); ISTAT ARTERIAL BLOOD GAS pH 7.32 (7.35-7.45); ISTAT CARBON DIOXIDE 27 mEq/l (24-31); ISTAT DELIVERY SYSTEM SimpleMask; ISTAT SITE R Radial
--- NOTE | 2016-08-04 15:14 | Pre-Operative Consultation ---
History General Date of Service: Aug 04, 2016. Stated Complaint: Right sided abdominal pain HPI HPI: The patient is a 76 year old female being seen at the request of Dr. Chand for cholecystectomy. She is s/p ercp, stone removal and stent placement/ sphincterotomy by Dr. Aponte today for common bile duct stones. She was admitted with right sided abdominal pain, elevated liver function tests and CT scan showing severely dilated biliary system with suggestion of two stones within the common duct. We are asked to see her for removal of her gallbladder. ERCP findings reviewed - multiple stones/ sludge within the biliary ductal system; unclear if all was removed and thus, plans for repeat ercp in 6 wks. PMHx notable for retroperitoneal hematoma while on coumadin. This occurred in April 2016 just a short time following a GI bleed which was felt to be hemorrhoidal. Gastric erosions were found and she was started on protonix. Coumadin has since been discontinued. Has persistent leg numbness since this event. Has a pacemaker in place. Pt is currently in PACU. On bipap. Able to communicate but still somewhat sedated from the anesthesia. No complaints of pain. Risk Assessment Daily beta sherry use?: Yes Problem List Medical Problems: (1) Bilateral pneumonia Status: Acute (2) CHF (congestive heart failure) Status: Acute (3) Cholecystitis Status: Acute (4) Elevated INR Status: Acute (5) Hematoma of right iliopsoas muscle Status: Acute (6) Hypoxia Status: Acute (7) Right upper quadrant abdominal pain Status: Acute (8) Supratherapeutic INR Status: Acute Medical & Surgical History Past Medical History: hyperlipidemia, hypertension, hypothyroidism, atrial fibrillation/atrial flutter, tachy-juli syndrome, vitamin D deficiency, Graves' disease and cholelithiasis Past Medical History: hypertension, hypothyroidism, pneumonia Past Surgical History: pacemaker (2004, generator changed 2012), thyroidectomy (for graves disease) Family History Family History: no pertinent family hx Social History Hx Tobacco Use In Past Year?: Yes (march 2016 ) Smoking Status: Former Smoker Alcohol: occasionally Drug Use: none Marital status: Occupation status: retired Immunizations Have You Had Influenza Vaccine: No Allergies Allergies: Coded Allergies: No Known Allergies (Unverified , 08/03/16) Medications Current Inpatient Medications Current Inpatient Medications Medications (Trade) Dose Ordered Sig/Angeles Route Start Time Stop Time Status Last Admin Dose Admin Metoprolol Succinate (Toprol Xl Tab) 50 mg DAILY PO 08/04/16 09:00 09/03/16 08:59 08/04/16 09:20 50 MG Levothyroxine Sodium (Synthroid Tab) 75 mcg DAILYBB PO 08/04/16 06:00 09/03/16 06:59 08/04/16 05:40 75 MCG Ondansetron HCl (Zofran Inj) 4 mg Q6H PRN IV 08/03/16 20:00 09/02/16 19:59 Potassium Chloride/Sodium Chloride 1,000 ml @ 100 mls/hr Q10H IV 08/03/16 21:00 09/02/16 20:59 08/04/16 05:47 100 MLS/HR Morphine Sulfate (MoRPHine SULFATE INJ) 2 mg Q2H PRN IV 08/03/16 20:00 08/17/16 19:59 08/04/16 04:41 2 MG Morphine Sulfate (MoRPHine SULFATE INJ) 4 mg Q2H PRN IV 08/03/16 20:00 08/17/16 19:59 Piperacillin Sod/ Tazobactam Sod 3.375 gm/Dextrose 115 ml @ 28.75 mls/ hr Q8H IV 08/04/16 02:00 08/14/16 01:59 08/04/16 09:20 28.75 MLS/HR Piperacillin Sod/ Tazobactam Sod (Consult) 1 ea UD PRN N/A 08/03/16 21:15 09/02/16 21:14 Ropinirole HCl (Requip Tab) 1 mg HS PO 08/04/16 21:00 09/03/16 20:59 Pantoprazole Sodium (Protonix Tab) 40 mg DAILYBB PO 08/04/16 09:30 09/03/16 09:29 08/04/16 09:43 40 MG Fentanyl Citrate (Fentanyl Inj) 50 mcg Q5M PRN IV 08/04/16 12:30 08/04/16 17:30 Ondansetron HCl (Zofran Inj) 4 mg ONE PRN IV 08/04/16 12:30 08/04/16 17:30 Promethazine HCl 6.25 mg/Sodium Chloride 50.25 ml @ 202 mls/hr ONE PRN IV 08/04/16 12:30 08/04/16 17:30 Ephedrine Sulfate (EpHEDrine SULFATE INJ) 5 mg Q5M PRN IV 08/04/16 12:30 08/04/16 17:30 Atropine Sulfate (Atropine Sulfate 0.1MG/Ml Inj) 0.5 mg Q1M PRN IV 08/04/16 12:30 08/04/16 17:30 Review of Systems Review of Systems Review of Systems Difficult to obtain as pt is mildly sedated still and on bipap. Denies any current issues with her heart. Did have pneumonia within the last few years. Physical Exam Physical Exam General Appearance: + WD/WN, No distress Ears, Nose, Throat: + other (exopthalmos bilaterally) Neck: + other (s/p thyroidectomy), No tracheal deviation Respiratory: + decreased breath sounds (midl at bases), + other (on bipap currently), No accessory muscle use Cardiovascular: + other (irregularly irregular), No systolic murmur Abdomen: No abnormal bowel sounds, No rebound, No tenderness, No distension, No hernia, No organomegaly Neurologic/Psychiatric: No abnormal tax map technician II-XII Skin Characteristics: No cyanosis, No mottling Diagnostics Labs Labs Results Past 24 Hours Test 08/03/16 17:01 08/03/16 18:05 08/04/16 05:55 08/04/16 14:09 Range/Units White Blood Count 12.74 9.10 4.8-10.8 K/uL Red Blood Count 4.45 4.08 4.2-5.4 M/uL Hemoglobin 14.0 12.9 12.0-16.0 g/dL Hematocrit 42.9 39.0 37-47 % Mean Corpuscular Volume 96.4 95.6 80-100 fL Mean Corpuscular Hemoglobin 31.5 31.6 25-34 pg Mean Corpuscular Hemoglobin Concent 32.6 33.1 32-36 g/dl Platelet Count 268 242 130-400 K/uL Mean Platelet Volume 9.5 9.4 7.4-10.4 fL Neutrophils (%) (Auto) 86.8 81.8 % Lymphocytes (%) (Auto) 4.9 9.2 % Monocytes (%) (Auto) 7.7 7.8 % Eosinophils (%) (Auto) 0.1 0.9 % Basophils (%) (Auto) 0.2 0.2 % Neutrophils # (Auto) 11.06 7.44 1.4-6.5 K/uL Lymphocytes # (Auto) 0.63 0.84 1.2-3.4 K/uL Monocytes # (Auto) 0.98 0.71 0.11-0.59 K/uL Eosinophils # (Auto) 0.01 0.08 0-0.5 K/uL Basophils # (Auto) 0.02 0.02 0-0.2 K/uL RDW Standard Deviation 47.8 46.7 36.4-46.3 fL RDW Coefficient of Variation 13.4 13.3 11.5-14.5 % Immature Granulocyte % (Auto) 0.3 0.1 % Immature Granulocyte # (Auto) 0.04 0.01 0.00-0.02 K/uL Prothrombin Time 10.7 11.4 9.0-12.0 SECONDS Prothromb Time International Ratio 1.0 1.1 0.9-1.1 Activated Partial Thromboplast Time 25.4 27.1 21.0-31.0 SECONDS Partial Thromboplastin Ratio 1.0 1.0 Sodium Level 139 141 136-145 mmol/L Potassium Level 3.5 3.3 3.5-5.1 mmol/L Chloride Level 105 106 98-107 mmol/L Carbon Dioxide Level 25 25 21-32 mmol/L Anion Gap 9.0 10.0 3-11 mmol/L Blood Urea Nitrogen 17 14 7-18 mg/dl Creatinine 1.10 1.00 0.60-1.20 mg/dl Est Creatinine Clear Calc Drug Dose 46.2 50.8 ml/min Estimated GFR () 55.7 62.5 Estimated GFR (Non- 48.1 53.9 BUN/Creatinine Ratio 15.5 13.7 10-20 Random Glucose 105 109 70-99 mg/dl Calcium Level 8.9 8.8 8.5-10.1 mg/dl Total Bilirubin 2.6 4.6 0.2-1 mg/dl Direct Bilirubin 1.5 3.1 0-0.2 mg/dl Aspartate Amino Transf (AST/SGOT) 424 200 15-37 U/L Alanine Aminotransferase (ALT/SGPT) 224 194 12-78 U/L Alkaline Phosphatase 313 255 45-117 U/L Troponin I < 0.015 0-0.045 ng/ml Total Protein 7.4 6.6 6.4-8.2 gm/dl Albumin 3.5 3.0 3.4-5.0 gm/dl Lipase 139 63 73-393 U/L Urine Color DK YELLOW Urine Appearance CLEAR CLEAR Urine pH 5.5 4.5-7.5 Urine Specific [place] 1.018 1.000-1.030 Urine Protein NEG NEG Urine Glucose (UA) NEG NEG Urine Ketones NEG NEG Urine Occult Blood NEG NEG Urine Nitrite NEG NEG Urine Bilirubin 1+ NEG Urine Urobilinogen NEG NEG Urine Leukocyte Esterase TRACE NEG Urine WBC (Auto) 1-5 0-5 /hpf Urine RBC (Auto) 0-4 0-4 /hpf Urine Hyaline Casts (Auto) 1-5 0-5 /lpf Urine Epithelial Cells (Auto) 20-30 0-5 /lpf Urine Bacteria (Auto) NEG NEG Magnesium Level 2.2 1.8-2.4 mg/dl Amylase Level 17 25-115 U/L Test 08/04/16 14:23 Range/Units Blood Gas Sample Site R Radial Bedside Blood Gas pH (LAB) 7.32 7.35-7.45 Bedside Blood Gas pCO2 (LAB) 49 35-46 mmHg Bedside Blood Gas pO2 (LAB) 75 80-95 mmHg Bedside Blood Gas HCO3 (LAB) 25 19-24 meq/L Bedside Blood Gas Total CO2 27 24-31 mEq/l Bedside Blood Gas Base Excess (LAB) -1.0 -9-1.8 meq/L Bedside Blood Gas O2 Saturation 94.0 90-95 % Derek Test Pass Oxygen Delivery Device SimpleMask Lab Interpretation Lab Interpretation: labs were reviewed Diagnostic Radiology Diagnostic Radiology CT scan shows a contracted gallbladder, stones in the common duct with severely dilated biliary system Impression Assessment and Plan Assessment and Plan 76 yr old woman with multiple other medical issues (most notably pacemaker), history of known gallstones, now presents with choledocholithiasis. She is s/p ercp/ sphincterotomy, stent placement today. Discussed the need for gallbladder removal - likely with laparoscopic cholecystectomy. Risks of procedure including but not limited to, bleeding, infection, conversion to open, bile leak with need for drain placement, retained stone (possible as it was difficult to clear duct today as per ercp note), postop diarrhea, postop intolerance to foods all discussed. She consents to proceed. Will add on schedule for tomorrow. Will have her sign consent tomorrow as she is still mildly sedated and it is unclear how much she comprehends currently.
--- NOTE | 2016-08-04 15:38 | Anesthesiology Progress Note ---
Anesthesia Post Op Note Date & Time Aug 04, 2016 at 15:35 Vital Signs Pain Intensity: 0 Vital Signs Past 12 Hours Date Time Temp Pulse Resp B/P (MAP) Pulse Ox O2 Delivery O2 Flow Rate FiO2 08/04/16 15:22 40 08/04/16 15:15 60 18 125/66 98 BiPAP 50 08/04/16 15:05 36.2 60 16 133/74 98 BiPAP 50 08/04/16 15:01 61 94 50 08/04/16 14:55 60 18 135/72 98 BiPAP 50 08/04/16 14:45 60 21 144/71 96 BiPAP 50 08/04/16 14:35 60 24 132/69 95 BiPAP 50 08/04/16 14:25 60 27 135/73 94 Mask 7 08/04/16 14:15 58 25 141/79 94 Mask 7 08/04/16 14:05 60 27 145/81 94 Mask 7 08/04/16 13:55 60 29 171/80 94 Mask 8 08/04/16 13:45 61 25 144/93 96 Mask 10 08/04/16 13:35 74 25 140/99 96 Mask 10 08/04/16 13:28 36.0 76 20 173/81 97 Mask 10 08/04/16 08:40 92 Room Air 08/04/16 07:47 Room Air 08/04/16 07:46 37.1 65 21 142/92 (109) 92 Room Air Notes Mental Status: alert / awake / arousable, participated in evaluation Pt Amnestic to Procedure: Yes Nausea / Vomiting: adequately controlled Pain: adequately controlled Airway Patency, RR, SpO2: stable & adequate, see Notes BP & HR: stable & adequate Hydration State: stable & adequate Anesthetic Complications: no major complications apparent Patient sedated further than would be expected in pacu. Shallow breathing. An ABG was drawn which showed some moderate CO2 retention and mild hypoxia and so the patient was placed on BiPAP. After 30 minutes she was awakening much more appropriately. Suspect that her retention was due to residual anesthetic medications and atelectasis. Will send her to the floor to wean BiPAP with continuous pulse oxymetry.
[2016-08-04] MEDS: ROPINIROLE HCL 1 MG TAB PO SCH (20:34)
[2016-08-04] MEDS ORDERED: NURSING VERBAL MED ORDER ONE (22:45)
[2016-08-04] MEDS ORDERED: SODIUM CHLORIDE 0.9% 500ML 500 ML IV STA (22:46)
[2016-08-05] VITALS (16 sets, daily range): BP systolic 117–146; BP diastolic 66–82; PULSE 60–73; TEMP 36.4–36.7; O2SAT 94–99
[2016-08-05] MEDS: PIPERACILL/TAZOBAC IV 3.375 GM in DEXTROSE 5% 100ML IV SCH ×3 (01:33→20:31)
[2016-08-05] MEDS: NSS + 20MEQ KCL 1000ML 1,000 ML IV SCH ×2 (03:30→12:00)
[2016-08-05] MEDS: PANTOprazole SOD 40 MG TAB PO SCH ×2 (05:38→08:13)
[2016-08-05] MEDS: LEVOTHYROXINE 75 MCG TAB PO SCH ×2 (05:38→08:13)
[2016-08-05] MEDS ORDERED: NEOSTIGMINE METHYLSULFATE 5 MG/5 ML SYR ONE (06:39)
[2016-08-05] MEDS ORDERED: DEXAMETHASONE SOD INJ 4 MG/ML VIAL ONE (06:39)
[2016-08-05] MEDS ORDERED: PROPOFOL IV EMULSION 10 MG/ML 20 ML VIAL IV ONE (06:39)
[2016-08-05] MEDS ORDERED: ONDANSETRON INJ 2 MG/ML 2 ML VIAL ONE (06:39)
[2016-08-05] MEDS ORDERED: FENTANYL CITRATE INJ 50 MCG/1 ML 2 ML VIAL ONE ×2 (06:39→09:21)
[2016-08-05] MEDS ORDERED: LIDOCAINE HCL 2% 2 ML VIAL (20MG/ML) ONE (06:39)
[2016-08-05] MEDS ORDERED: GLYCOPYRROLATE INJ 0.2 MG/ML VIAL ONE (06:39)
[2016-08-05] MEDS ORDERED: ROCURONIUM BROMIDE 10 MG/ML 5 ML VIAL ONE (06:39)
[2016-08-05] MEDS ORDERED: ACETAMINOPHEN 1000 MG/100 ML IV IV ONE (06:46)
[2016-08-05 07:06] LABS: BASO % 0.4 %; BASO ABS # 0.03 K/uL (0-0.2); COMPLETE YES; EOS % 2.1 %; HEMATOCRIT 38.2 % (37-47); IG% 0.2 %; LYMPH % 10.2 %; LYMPH ABS # 0.84 K/uL (1.2-3.4); MEAN CELL VOLUME 97.7 fL (80-100); MEAN CORPUSCULAR HEMOGLOBIN 31.7 pg (25-34); MEAN CORPUSCULAR HGB CONC 32.5 g/dl (32-36); MEAN PLATELET VOLUME 9.9 fL (7.4-10.4); MONO % 8.5 %; NEUT % 78.6 %; PLATELET COUNT 216 K/uL (130-400); RED BLOOD COUNT 3.91 M/uL (4.2-5.4); WHITE BLOOD COUNT 8.26 K/uL (4.8-10.8)
[2016-08-05 07:13] LABS: PARTIAL THROMBOPLASTIN RATIO 1.1
[2016-08-05 07:40] LABS: BUN/CREATININE RATIO 14.1 (10-20); CALCIUM 8.4 mg/dl (8.5-10.1); MAGNESIUM 2.1 mg/dl (1.8-2.4); POTASSIUM 3.5 mmol/L (3.5-5.1)
[2016-08-05 07:48] LABS: ALB/GLOB RATIO 0.7 (0.9-2)
[2016-08-05] MEDS ORDERED: NURSING VERBAL MED ORDER ONE ×2 (08:00→17:30)
[2016-08-05] MEDS: METOPROLOL SUCC 50MG EXT REL TAB PO SCH (08:11)
--- NOTE | 2016-08-05 08:19 | Progress Note ---
Progress Note Date of Service Aug 05, 2016. Progress Note Pt seen today. Much more awake/ alert. Risks/ benefits of lap cholecystectomy discussed including bleeding, infection, bile leak needing drain, need for further ercp (plan currently is for 6 wk f/u ercp), postop diarrhea, intolerance to foods, need for open incision. Consent signed. No other changes to history and physical from yesterday.
[2016-08-05] MEDS ORDERED: BUPIVACAINE 0.5 % 5 MG/1 ML MPF 30ML VIAL ONE (08:26)
[2016-08-05] MEDS ORDERED: FENTANYL CITRATE INJ 50 MCG/1 ML 2 ML VIAL IV PRN (08:45)
[2016-08-05] MEDS ORDERED: ATROPINE SULFATE 0.1 MG/ML 5ML SYR IV PRN (08:45)
[2016-08-05] MEDS ORDERED: ONDANSETRON INJ 2 MG/ML 2 ML VIAL IV PRN (08:45)
[2016-08-05] MEDS ORDERED: PROMETHAZINE HCL INJ 6.25 MG in SODIUM CHLORIDE 0.9% 50ML 50 ML IV PRN (08:45)
[2016-08-05] MEDS ORDERED: EpHEDrine SULFATE INJ 50 MG/ML AMP IV PRN (08:45)
--- NOTE | 2016-08-05 10:25 | [facility] Post Operative Brief Note ---
Immediate Operative Summary Operative Date Aug 05, 2016. Pre-Operative Diagnosis Choledocholithiasis s/p ercp/ stent Post-Operative Diagnosis Choledocholithiasis Procedure(s) Performed Laparoscopic Cholecystectomy Surgeon Dr. Chante Lin Computer Field Technician Surgeon(s) none Estimated Blood Loss 10 ml Findings very inflamed, edematous, hard in region of cystic duct. Gallbladder triangulated down to cystic duct region. Just below cysti duct to be clipped, there was a firm near 2 cm area - ? stone vs inflammation. Ductotomy done and attempts at milking this just gave bile/ no stone. Unable to be milked. More c/ w inflammation. Thus, gallbladder removed. Specimens A. Gallbladder Drains none Anesthesia GET Complication(s) None Disposition Recovery Room / PACU
[2016-08-05] MEDS ORDERED: OXYCODONE/ACETAMINOPHEN 5-325 TAB PO PRN ×2 (10:30)
--- NOTE | 2016-08-05 11:05 | Anesthesiology Progress Note ---
Anesthesia Post Op Note Date & Time Aug 05, 2016 at 11:04 Vital Signs Pain Intensity: 0 Vital Signs Past 12 Hours Date Time Temp Pulse Resp B/P (MAP) Pulse Ox O2 Delivery O2 Flow Rate FiO2 08/05/16 10:55 64 20 131/63 96 BiPAP 40 08/05/16 10:45 67 24 143/65 97 BiPAP 40 08/05/16 10:35 71 22 144/67 95 BiPAP 40 08/05/16 10:28 71 94 40 08/05/16 10:26 36.0 81 24 136/69 95 BiPAP 40 08/05/16 07:43 36.5 64 18 146/66 (92) 96 2.0 08/05/16 07:20 Oxymask 2.0 08/05/16 04:41 36.7 73 18 121/70 (87) 96 Oxymask 4.0 08/04/16 23:30 Oxymask 2.0 08/04/16 23:30 66 126/76 (93) 08/04/16 23:10 36.4 77 18 90/64 (73) 97 Oxymask 4.0 Notes Mental Status: alert / awake / arousable, participated in evaluation Pt Amnestic to Procedure: Yes Nausea / Vomiting: adequately controlled Pain: adequately controlled Airway Patency, RR, SpO2: stable & adequate BP & HR: stable & adequate Hydration State: stable & adequate Anesthetic Complications: no major complications apparent
--- NOTE | 2016-08-05 12:59 | Gastroenterology Progress Note ---
Progress Note Date of Service: Aug 05, 2016 Subjective Pt evaluation today including: conversation w/ patient, conversation w/ family (son and 2 daughters), physical exam, chart review, lab review, review of studies, review of inpatient medication list .CC f/u CBD stones, elev LFTs HPI Pt states no abd pain post ERCP. Had GB surgery today and no particular abd pain. Some SOB pos t surgery helped with bipap. Review of Systems Respiratory: + shortness of breath Cardiac: No chest pain Medications Current Inpatient Medications Medications (Trade) Dose Ordered Sig/Angeles Route Start Time Stop Time Status Last Admin Dose Admin Metoprolol Succinate (Toprol Xl Tab) 50 mg DAILY PO 08/04/16 09:00 09/03/16 08:59 08/05/16 08:11 50 MG Levothyroxine Sodium (Synthroid Tab) 75 mcg DAILYBB PO 08/04/16 06:00 09/03/16 06:59 08/05/16 08:13 75 MCG Ondansetron HCl (Zofran Inj) 4 mg Q6H PRN IV 08/03/16 20:00 09/02/16 19:59 Potassium Chloride/Sodium Chloride 1,000 ml @ 100 mls/hr Q10H IV 08/03/16 21:00 09/02/16 20:59 08/05/16 12:00 100 MLS/HR Morphine Sulfate (MoRPHine SULFATE INJ) 2 mg Q2H PRN IV 08/03/16 20:00 08/17/16 19:59 08/04/16 04:41 2 MG Morphine Sulfate (MoRPHine SULFATE INJ) 4 mg Q2H PRN IV 08/03/16 20:00 08/17/16 19:59 Piperacillin Sod/ Tazobactam Sod (Consult) 1 ea UD PRN N/A 08/03/16 21:15 09/02/16 21:14 Ropinirole HCl (Requip Tab) 1 mg HS PO 08/04/16 21:00 09/03/16 20:59 08/04/16 20:34 1 MG Pantoprazole Sodium (Protonix Tab) 40 mg DAILYBB PO 08/04/16 09:30 09/03/16 09:29 08/05/16 08:13 40 MG Fentanyl Citrate (Fentanyl Inj) 50 mcg Q5M PRN IV 08/05/16 08:45 08/05/16 14:00 Ondansetron HCl (Zofran Inj) 4 mg ONE PRN IV 08/05/16 08:45 08/05/16 14:00 Promethazine HCl 6.25 mg/Sodium Chloride 50.25 ml @ 202 mls/hr ONE PRN IV 08/05/16 08:45 08/05/16 14:00 Ephedrine Sulfate (EpHEDrine SULFATE INJ) 5 mg Q5M PRN IV 08/05/16 08:45 08/05/16 14:00 Atropine Sulfate (Atropine Sulfate 0.1MG/Ml Inj) 0.5 mg Q1M PRN IV 08/05/16 08:45 08/05/16 14:00 Oxycodone/ Acetaminophen (Percocet 5-325mg Tab) 1 tab Q4H PRN PO 08/05/16 10:30 08/19/16 10:29 Oxycodone/ Acetaminophen (Percocet 5-325mg Tab) 2 tab Q4H PRN PO 08/05/16 10:30 08/19/16 10:29 Aspirin (Ecotrin Tab) 81 mg DAILY PO 08/06/16 09:00 09/05/16 08:59 Piperacillin Sod/ Tazobactam Sod 3.375 gm/Dextrose 115 ml @ 28.75 mls/ hr Q8H IV 08/05/16 12:00 08/15/16 11:59 08/05/16 11:59 28.75 MLS/HR Objective Vital Signs Date Time Temp Pulse Resp B/P (MAP) Pulse Ox O2 Delivery O2 Flow Rate FiO2 08/05/16 11:56 62 29 117/71 (86) 95 BiPAP 08/05/16 11:30 36.5 65 22 130/67 (88) 95 BiPAP 30 08/05/16 11:30 96 BiPAP 08/05/16 11:15 67 20 130/69 97 BiPAP 40 08/05/16 11:13 64 98 40 08/05/16 11:05 36.0 70 24 135/78 97 BiPAP 40 08/05/16 10:55 64 20 131/63 96 BiPAP 40 08/05/16 10:45 67 24 143/65 97 BiPAP 40 08/05/16 10:35 71 22 144/67 95 BiPAP 40 08/05/16 10:28 71 94 40 08/05/16 10:26 36.0 81 24 136/69 95 BiPAP 40 17 07:43 36.5 64 18 146/66 (92) 96 2.0 08/05/16 07:20 Oxymask 2.0 08/05/16 04:41 36.7 73 18 121/70 (87) 96 Oxymask 4.0 08/04/16 23:30 Oxymask 2.0 08/04/16 23:30 66 126/76 (93) 08/04/16 23:10 36.4 77 18 90/64 (73) 97 Oxymask 4.0 08/04/16 19:11 20 99 Oxymask 2.0 08/04/16 18:43 36.5 66 16 112/70 (84) 99 Oxymask 4.0 08/04/16 18:19 100 Oxymask 4.0 08/04/16 17:44 36.8 68 16 130/79 (96) 95 Oxymask 5.0 08/04/16 17:29 20 100 Oxymask 6.0 08/04/16 16:40 36.5 92 16 128/84 (99) 98 BiPAP 08/04/16 16:11 36.5 62 16 121/77 (92) 97 BiPAP 08/04/16 15:40 96 BiPAP 40 08/04/16 15:40 96 BiPAP 08/04/16 15:40 36.4 64 20 133/84 (100) 96 BiPAP 40 08/04/16 15:22 40 08/04/16 15:15 60 18 125/66 98 BiPAP 50 08/04/16 15:05 36.2 60 16 133/74 98 BiPAP 50 08/04/16 15:01 61 94 50 08/04/16 14:55 60 18 135/72 98 BiPAP 50 08/04/16 14:45 60 21 144/71 96 BiPAP 50 08/04/16 14:35 60 24 132/69 95 BiPAP 50 08/04/16 14:25 60 27 135/73 94 Mask 7 08/04/16 14:15 58 25 141/79 94 Mask 7 08/04/16 14:05 60 27 145/81 94 Mask 7 08/04/16 13:55 60 29 171/80 94 Mask 8 08/04/16 13:45 61 25 144/93 96 Mask 10 08/04/16 13:35 74 25 140/99 96 Mask 10 08/04/16 13:28 36.0 76 20 173/81 97 Mask 10 Physical Exam General Appearance: WD/WN, no apparent distress Respiratory/Chest: lungs clear, no respiratory distress Cardiovascular: no murmur Abdomen: normal bowel sounds, soft, no organomegaly, + pertinent finding (mild guarding no rebound.) Laboratory Results Last 24 Hours Test 08/04/16 14:23 08/05/16 06:30 Blood Gas Sample Site R Radial Bedside Blood Gas pH (LAB) 7.32 Bedside Blood Gas pCO2 (LAB) 49 mmHg Bedside Blood Gas pO2 (LAB) 75 mmHg Bedside Blood Gas HCO3 (LAB) 25 meq/L Bedside Blood Gas Total CO2 27 mEq/l Bedside Blood Gas Base Excess (LAB) -1.0 meq/L Bedside Blood Gas O2 Saturation 94.0 % Derek Test Pass Oxygen Delivery Device SimpleMask White Blood Count 8.26 K/uL Red Blood Count 3.91 M/uL Hemoglobin 12.4 g/dL Hematocrit 38.2 % Mean Corpuscular Volume 97.7 fL Mean Corpuscular Hemoglobin 31.7 pg Mean Corpuscular Hemoglobin Concent 32.5 g/dl Platelet Count 216 K/uL Mean Platelet Volume 9.9 fL Neutrophils (%) (Auto) 78.6 % Lymphocytes (%) (Auto) 10.2 % Monocytes (%) (Auto) 8.5 % Eosinophils (%) (Auto) 2.1 % Basophils (%) (Auto) 0.4 % Neutrophils # (Auto) 6.50 K/uL Lymphocytes # (Auto) 0.84 K/uL Monocytes # (Auto) 0.70 K/uL Eosinophils # (Auto) 0.17 K/uL Basophils # (Auto) 0.03 K/uL RDW Standard Deviation 47.8 fL RDW Coefficient of Variation 13.4 % Immature Granulocyte % (Auto) 0.2 % Immature Granulocyte # (Auto) 0.02 K/uL Prothrombin Time 11.0 SECONDS Prothromb Time International Ratio 1.0 Activated Partial Thromboplast Time 27.8 SECONDS Partial Thromboplastin Ratio 1.1 Sodium Level 140 mmol/L Potassium Level 3.5 mmol/L Chloride Level 107 mmol/L Carbon Dioxide Level 22 mmol/L Anion Gap 11.0 mmol/L Blood Urea Nitrogen 14 mg/dl Creatinine 1.00 mg/dl Est Creatinine Clear Calc Drug Dose 50.8 ml/min Estimated GFR () 62.5 Estimated GFR (Non- 53.9 BUN/Creatinine Ratio 14.1 Random Glucose 84 mg/dl Calcium Level 8.4 mg/dl Magnesium Level 2.1 mg/dl Total Bilirubin 2.5 mg/dl Direct Bilirubin 1.4 mg/dl Aspartate Amino Transf (AST/SGOT) 78 U/L Alanine Aminotransferase (ALT/SGPT) 123 U/L Alkaline Phosphatase 211 U/L Total Protein 6.1 gm/dl Albumin 2.6 gm/dl Globulin 3.5 gm/dl Albumin/Globulin Ratio 0.7 Amylase Level 23 U/L Lipase 71 U/L Assessment and Plan CBD stone--s/p ERCP with sphincterotomy, stone removal but residual and stent placement--Elective outpt ERCP for stent removal and clear duct of residual stones approx 6 weeks. Normal amylase and lipase so no pancreatitis post ERCP> Elevated LFTs from CBD obstruction--improved R flank/upper back pain--improved erosive esophagitis---recommend po protonix I am going off service and DR Dick assuming GI care today at 1700.
--- NOTE | 2016-08-05 14:41 | Progress Note ---
Subjective Date of Service: Aug 05, 2016. Subjective Pt evaluation today including: conversation w/ patient, conversation w/ family , physical exam, lab review, review of inpatient medication list Pain: mild pain after surgery today PO Intake: tolerating clears Voiding: no voiding problems patient seen after cholecystectomy today, tolerated well, no acute issues, drinking clears updated family at the bedside Dr. Aponte visited with patient, stent will come out in 4-6 weeks Problem List Medical Problems: (1) Bilateral pneumonia Status: Acute (2) CHF (congestive heart failure) Status: Acute (3) Cholecystitis Status: Acute (4) Elevated INR Status: Acute (5) Hematoma of right iliopsoas muscle Status: Acute (6) Hypoxia Status: Acute (7) Right upper quadrant abdominal pain Status: Acute (8) Supratherapeutic INR Status: Acute Review of Systems Constitutional: + weakness, + fatigue Abdomen: + pain (RUQ, operative pain) All Other Systems: Reviewed and Negative Medications Current Inpatient Medications Medications (Trade) Dose Ordered Sig/Angeles Route Start Time Stop Time Status Last Admin Dose Admin Metoprolol Succinate (Toprol Xl Tab) 50 mg DAILY PO 08/04/16 09:00 09/03/16 08:59 08/05/16 08:11 50 MG Levothyroxine Sodium (Synthroid Tab) 75 mcg DAILYBB PO 08/04/16 06:00 09/03/16 06:59 08/05/16 08:13 75 MCG Ondansetron HCl (Zofran Inj) 4 mg Q6H PRN IV 08/03/16 20:00 09/02/16 19:59 Potassium Chloride/Sodium Chloride 1,000 ml @ 100 mls/hr Q10H IV 08/03/16 21:00 09/02/16 20:59 08/05/16 12:00 100 MLS/HR Morphine Sulfate (MoRPHine SULFATE INJ) 2 mg Q2H PRN IV 08/03/16 20:00 08/17/16 19:59 08/04/16 04:41 2 MG Morphine Sulfate (MoRPHine SULFATE INJ) 4 mg Q2H PRN IV 08/03/16 20:00 08/17/16 19:59 Piperacillin Sod/ Tazobactam Sod (Consult) 1 ea UD PRN N/A 08/03/16 21:15 09/02/16 21:14 Ropinirole HCl (Requip Tab) 1 mg HS PO 08/04/16 21:00 09/03/16 20:59 08/04/16 20:34 1 MG Pantoprazole Sodium (Protonix Tab) 40 mg DAILYBB PO 08/04/16 09:30 09/03/16 09:29 08/05/16 08:13 40 MG Oxycodone/ Acetaminophen (Percocet 5-325mg Tab) 1 tab Q4H PRN PO 08/05/16 10:30 08/19/16 10:29 Oxycodone/ Acetaminophen (Percocet 5-325mg Tab) 2 tab Q4H PRN PO 08/05/16 10:30 08/19/16 10:29 Aspirin (Ecotrin Tab) 81 mg DAILY PO 08/06/16 09:00 09/05/16 08:59 Piperacillin Sod/ Tazobactam Sod 3.375 gm/Dextrose 115 ml @ 28.75 mls/ hr Q8H IV 08/05/16 12:00 08/15/16 11:59 08/05/16 11:59 28.75 MLS/HR Objective Vital Signs Date Time Temp Pulse Resp B/P (MAP) Pulse Ox O2 Delivery O2 Flow Rate FiO2 08/05/16 13:30 36.4 63 24 134/82 (99) 97 6.0 08/05/16 13:01 95 Nasal Cannula 6.0 Humidified Oxygen 08/05/16 12:30 60 32 124/75 (91) 96 BiPAP 08/05/16 11:56 62 29 117/71 (86) 95 BiPAP 08/05/16 11:30 36.5 65 22 130/67 (88) 95 BiPAP 30 08/05/16 11:30 96 BiPAP 08/05/16 11:15 67 20 130/69 97 BiPAP 40 08/05/16 11:13 64 98 40 08/05/16 11:05 36.0 70 24 135/78 97 BiPAP 40 08/05/16 10:55 64 20 131/63 96 BiPAP 40 08/05/16 10:45 67 24 143/65 97 BiPAP 40 08/05/16 10:35 71 22 144/67 95 BiPAP 40 08/05/16 10:28 71 94 40 08/05/16 10:26 36.0 81 24 136/69 95 BiPAP 40 08/05/16 07:43 36.5 64 18 146/66 (92) 96 2.0 08/05/16 07:20 Oxymask 2.0 08/05/16 04:41 36.7 73 18 121/70 (87) 96 Oxymask 4.0 08/04/16 23:30 Oxymask 2.0 08/04/16 23:30 66 126/76 (93) 08/04/16 23:10 36.4 77 18 90/64 (73) 97 Oxymask 4.0 08/04/16 19:11 20 99 Oxymask 2.0 08/04/16 18:43 36.5 66 16 112/70 (84) 99 Oxymask 4.0 08/04/16 18:19 100 Oxymask 4.0 08/04/16 17:44 36.8 68 16 130/79 (96) 95 Oxymask 5.0 08/04/16 17:29 20 100 Oxymask 6.0 08/04/16 16:40 36.5 92 16 128/84 (99) 98 BiPAP 08/04/16 16:11 36.5 62 16 121/77 (92) 97 BiPAP 08/04/16 15:40 96 BiPAP 40 08/04/16 15:40 96 BiPAP 08/04/16 15:40 36.4 64 20 133/84 (100) 96 BiPAP 40 08/04/16 15:22 40 08/04/16 15:15 60 18 125/66 98 BiPAP 50 08/04/16 15:05 36.2 60 16 133/74 98 BiPAP 50 08/04/16 15:01 61 94 50 08/04/16 14:55 60 18 135/72 98 BiPAP 50 08/04/16 14:45 60 21 144/71 96 BiPAP 50 08/04/16 14:35 60 24 132/69 95 BiPAP 50 Physical Exam General Appearance: WD/WN, no apparent distress Eyes: normal inspection, EOMI, sclerae normal Neck: supple, no adenopathy, no JVD, trachea midline Respiratory/Chest: chest non-tender, lungs clear, normal breath sounds, no respiratory distress, no accessory muscle use Cardiovascular: regular rate, rhythm, no edema, no gallop, no JVD, no murmur Abdomen: no organomegaly, + abnormal bowel sounds (hypoactive), + tenderness ( RUQ, incision sites) Extremities: normal range of motion, non-tender, normal inspection, no pedal edema, no calf tenderness Neurologic/Psychiatric: bundle tier and labeler II-XII nml as tested, no motor/sensory deficits, alert, normal mood/affect, oriented x 3 Skin: normal color, warm/dry, no rash Laboratory Results Last 24 Hours Test 08/05/16 06:30 White Blood Count 8.26 K/uL Red Blood Count 3.91 M/uL Hemoglobin 12.4 g/dL Hematocrit 38.2 % Mean Corpuscular Volume 97.7 fL Mean Corpuscular Hemoglobin 31.7 pg Mean Corpuscular Hemoglobin Concent 32.5 g/dl Platelet Count 216 K/uL Mean Platelet Volume 9.9 fL Neutrophils (%) (Auto) 78.6 % Lymphocytes (%) (Auto) 10.2 % Monocytes (%) (Auto) 8.5 % Eosinophils (%) (Auto) 2.1 % Basophils (%) (Auto) 0.4 % Neutrophils # (Auto) 6.50 K/uL Lymphocytes # (Auto) 0.84 K/uL Monocytes # (Auto) 0.70 K/uL Eosinophils # (Auto) 0.17 K/uL Basophils # (Auto) 0.03 K/uL RDW Standard Deviation 47.8 fL RDW Coefficient of Variation 13.4 % Immature Granulocyte % (Auto) 0.2 % Immature Granulocyte # (Auto) 0.02 K/uL Prothrombin Time 11.0 SECONDS Prothromb Time International Ratio 1.0 Activated Partial Thromboplast Time 27.8 SECONDS Partial Thromboplastin Ratio 1.1 Sodium Level 140 mmol/L Potassium Level 3.5 mmol/L Chloride Level 107 mmol/L Carbon Dioxide Level 22 mmol/L Anion Gap 11.0 mmol/L Blood Urea Nitrogen 14 mg/dl Creatinine 1.00 mg/dl Est Creatinine Clear Calc Drug Dose 50.8 ml/min Estimated GFR () 62.5 Estimated GFR (Non- 53.9 BUN/Creatinine Ratio 14.1 Random Glucose 84 mg/dl Calcium Level 8.4 mg/dl Magnesium Level 2.1 mg/dl Total Bilirubin 2.5 mg/dl Direct Bilirubin 1.4 mg/dl Aspartate Amino Transf (AST/SGOT) 78 U/L Alanine Aminotransferase (ALT/SGPT) 123 U/L Alkaline Phosphatase 211 U/L Total Protein 6.1 gm/dl Albumin 2.6 gm/dl Globulin 3.5 gm/dl Albumin/Globulin Ratio 0.7 Amylase Level 23 U/L Lipase 71 U/L Assessment and Plan 76 yo female with h/o atrial fibrillation, more recent h/p spontaneous retroperitoneal hematoma, presents with RUQ pain, one week duration, CT showed CBD stones with dilation, gall bladder contracted - Choledocholithiasis with evidence of biliary dilation, contracted gall bladder , possible cholangitis treated initially with IV fluids, Zosyn IV, afebrile, WBC normalized and pain improved, Bili trended up slightly yesterday underwent ERCP on 08/04, sphincterotomy, stone removal and CBD stent placed per GI, stent will come out in 4-6 weeks s/p lap cholecystectomy 08/05, no complications pain control, diet per surgery as well as discharge timing lab review today, WBC normal, Bili and other LFT trending down - Recent Retroperitoneal hematoma: resolving on CT scan, continue to hold Coumadin, anti-platelets - Atrial fibrillation: continue metoprolol, no Coumadin due to RPH recently - Chronic diastolic HF: euvolemic, hold lasix in setting of infection/illness watch for any signs of pulmonary edema - Restless leg syndrome--continue ropinirole 1 mg by mouth at bedtime. - GERD--continue pantoprazole. - Hypothyroidism: Synthroid DVT prophylaxis: SCD Plan: recovery from surgery, advance diet, pain control, hopeful for d/c in 1-2 days but will defer to surgery
--- NOTE | 2016-08-05 15:19 | OPERATIVE REPORT ---
DATE OF OPERATION: 08/05/2016 PREOPERATIVE DIAGNOSIS: Choledocholithiasis, status post ERCP. POSTOPERATIVE DIAGNOSIS: Same. OPERATIVE PROCEDURE: Laparoscopic cholecystectomy. ANESTHESIA: General endotracheal anesthesia. SURGEON: Dr. Chante Lin. ESTIMATED BLOOD LOSS: 10 mL. SPECIMENS: Gallbladder. DRAINS: None. OPERATIVE FINDINGS: Very dense, inflamed, hard region around cystic duct, gallbladder was actually triangulated and peeled in a top down approach. Just below the area of the cystic duct there was a 2-3 cm very firm region. Question stone versus inflammation. Thus, ductotomy created and attempts were made to milk this; however, there was no stone and this region could not be moved, therefore was felt to be consistent with inflammation in the common duct and cystic duct region and clips were placed and gallbladder removed. INDICATIONS: Ms. Zhang is a 76-year-old woman who presented with choledocholithiasis. She had an ERCP with stent placements enterotomy yesterday. This was a long procedure and it was unclear whether the duct had been fully cleared. She was consented regarding laparoscopic cholecystectomy. DESCRIPTION OF PROCEDURE: The patient was on Zosyn preoperatively. She had placement of sequential compression devices. After the induction of general endotracheal anesthesia, her abdomen was sterilely prepped and draped. She was positioned in Trendelenburg. A supraumbilical incision was made and a Veress needle was placed into the peritoneal cavity. This was tested with the saline drop test. Initial pressure was 1 mmHg, this was taken up to 15 mmHg. A 5 mm trocar was placed. Three additional trocars were placed under direct vision, an 11 in the epigastrium and two 5 on the right side of the abdomen. Initial inspection revealed adhesions to the gallbladder which were all taken down. There was a very dense inflammatory change around the region of the infundibulum, cystic duct and common duct. Thus, the gallbladder was retracted over the liver but dissection was actually begun up on the mid portion and the gallbladder was freed from peritoneal attachments and freed circumferentially. This plane was then followed inferiorly until the region of the cystic duct was identified. There was very dense scarring in this region. Ultimately, the artery was able to be cleared off and clipped. Smaller branches were also taken with the cautery and the duct was cleared. Just below the area of the cystic duct, there was a very hard 2-3 cm lesion that was quite firm. I was unclear whether this was stone, it did appear to be extending into the common duct region. Thus a ductotomy was made and attempts were made to milk this region; however, no stone was removed and the firm area did not change, thus 2 large clips were placed below this ductotomy, a single clip above and the gallbladder was divided. Remaining dissection allowed it to be removed from the liver bed, it was placed in an Endobag and removed through the epigastric incision. The area was again inspected and this was felt to be consistent with inflammation, although there is the possibility of a retained stone in the very distal cystic duct/common duct remnant junction. The only way to tell this at this point would have been to convert to an open procedure. Decision was made to not convert as the patient will require subsequent ERCP in 6 weeks and this may answer the question. Should it be a retained stone in the cystic duct then she likely will need an open procedure. The trocars were removed. 30 mL of 0.5% Marcaine had been used for local anesthesia. The fascia of the epigastric incision was closed with 0 Vicryl stitches placed anteriorly. The skin of all 4 incisions were closed with running subcuticular 4-0 Vicryl sutures. Steri-Strip and sterile dressings were applied. She was taken from anesthesia to recovery in stable condition. I attest to the content of the Intraoperative Record and any orders documented therein. Any exception s are noted below.
[2016-08-05] MEDS ORDERED: FUROSEMIDE INJ 40 MG in SYRINGE 0 ML IV ONE (17:45)
[2016-08-05] MEDS: ROPINIROLE HCL 1 MG TAB PO SCH (20:31)
[2016-08-06] VITALS (9 sets, daily range): BP systolic 107–144; BP diastolic 58–76; PULSE 61–81; TEMP 36.5–36.7; O2SAT 91–96
[2016-08-06] MEDS ORDERED: NURSING DECISION MEDICATION ORDER SCH (00:30)
[2016-08-06] MEDS ORDERED: COUGH DROP (SUGAR FREE) LOZ 24 LOZ/1 BOX PO PRN (01:15)
[2016-08-06] MEDS: PIPERACILL/TAZOBAC IV 3.375 GM in DEXTROSE 5% 100ML IV SCH ×3 (04:11→20:19)
[2016-08-06] MEDS: LEVOTHYROXINE 75 MCG TAB PO SCH (05:45)
[2016-08-06] MEDS: PANTOprazole SOD 40 MG TAB PO SCH (05:45)
[2016-08-06 05:59] LABS: BASO % 0.2 %; BASO ABS # 0.02 K/uL (0-0.2); COMPLETE YES; EOS % 0.5 %; HEMATOCRIT 38.9 % (37-47); IG% 0.2 %; LYMPH ABS # 0.88 K/uL (1.2-3.4); MEAN CORPUSCULAR HGB CONC 31.6 g/dl (32-36); MEAN PLATELET VOLUME 10.1 fL (7.4-10.4); MONO % 8.3 %; NEUT % 80.8 %; PLATELET COUNT 234 K/uL (130-400); RED BLOOD COUNT 3.97 M/uL (4.2-5.4); WHITE BLOOD COUNT 8.84 K/uL (4.8-10.8)
[2016-08-06 06:09] LABS: PROTHROMBIN TIME (PATIENT) 10.7 SECONDS (9.0-12.0)
[2016-08-06 06:35] LABS: BUN/CREATININE RATIO 11.1 (10-20); CALCIUM 8.7 mg/dl (8.5-10.1); CREATININE 0.97 mg/dl (0.60-1.20); POTASSIUM 3.4 mmol/L (3.5-5.1)
--- NOTE | 2016-08-06 07:09 | GASTROINTESTINAL CONSULTATION ---
DATE OF CONSULTATION: 08/04/2016 REQUESTING PHYSICIAN: Dr. Scott CHIEF COMPLAINT: Patient with right flank pain. HISTORY OF PRESENT ILLNESS: The patient has been having recently some right back and flank pain symptoms. She thought it might be recurrence of her retroperitoneal hematoma which gave her similar symptoms. She came into the Emergency Room. She has not had any bloody stools or black stools. No change in bowels, no fever, no nausea, vomiting. Her GERD has been controlled. She was seen in inpatient consultation on 04/19/2016 for rectal bleeding, elevated LFTs, Coumadin coagulopathy. She ultimately had a retroperitoneal hematoma. On 04/20/2016, colonoscopy of the TI showed left colon diverticulosis, large hemorrhoids, three polyps which were removed, two tubular adenomas one hyperplastic. She had an EGD on 04/20/2016; grade B esophagitis with the path inflammation positive for fungus, which subsequently was treated as an outpatient, 2 cm hiatal hernia, multiple gastric polyps. A workup for elevated LFTs at that time showed a total bilirubin of about 1.8. She could not have an MRCP done secondary to pacer and did not want an EUS done. She was seen in the outpatient GI on 06/27/2016; at that time was doing well. She also because of elevated ferritin had hemochromatosis genetic testing done and was noted to be heterozygous for hemochromatosis. This time when she came to the Emergency Room, she had an abdomen and pelvic CT scan showing two common bile duct stones in the distal bile duct. Common bile duct is larger at 2 cm. Retroperitoneal fluid collection is better. She has contracted gallbladder. LFTs are markedly elevated. Her bilirubin when she came to the Emergency Room was 2.6, AST 424, ALT 224, alkaline phosphatase 313 and lipase was normal. Her baseline LFT is 05/25/2016 total bilirubin 1.8, AST of 43. Bilirubin is worse today at 4.6, although AST 200, ALT 194 and alkaline phosphatase 255. PAST MEDICAL HISTORY: None. ALLERGIES: None. MEDICATIONS ON ADMISSION: Aspirin, vitamin D, Lasix, levothyroxine, metoprolol, Protonix, potassium and Requip. PROBLEMS AND SURGERY: CHF pacer, hypertension, restless leg, history of retroperitoneal bleed and anticoagulation has been stopped from 04/2016. FAMILY HISTORY: Noncontributory. SOCIAL HISTORY: Tobacco negative, ethanol occasionally. REVIEW OF SYSTEMS: CONSTITUTIONAL: Negative. EYES: Negative. EARS, NOSE AND THROAT: Negative. CARDIOVASCULAR: Negative. RESPIRATORY: Negative. GENITOURINARY: Negative. MUSCULOSKELETAL: Negative. INTEGUMENTARY: Negative. NEUROLOGIC: Negative. PSYCHIATRIC: Negative. ENDOCRINE: Negative. HEMATOLOGIC: Negative except as noted above. PHYSICAL EXAMINATION: GENERAL: Female, appears her stated age, in no acute distress. VITAL SIGNS: Most recent in the chart; temp 37.1, pulse 65, respirations 21, BP 142/92 and O2 saturation is 92% on room air. EYES: Conjunctivae and lids normal. ENT: Oropharynx clear. NECK: Without obvious mass or thyroid enlargement. RESPIRATORY: Normal effort, clear to anterior auscultation. CARDIOVASCULAR: Regular rate and rhythm. EXTREMITIES: Without edema. ABDOMEN: Positive bowel sounds, soft, nontender, no obvious organomegaly or masses are appreciated. RECTAL: Not done. LYMPH: No obvious neck or groin nodes. MUSCULOSKELETAL: Digits and nails normal. SKIN: Without obvious rash or induration. NEUROLOGIC: Cranial nerves intact. Sensation intact. PSYCHIATRIC: Recent and remote memory good. Insight and judgment good. DATA: As above. CBC: White count elevated at 12.7 on admission 9.1. Today, PT and PTT were okay. IMPRESSION AND PLAN: 1. Common bile duct stones noted on the CT scan. The CT in the clinical scenario is consistent with common bile duct obstruction from stones; recommended ERCP depending on the OR schedule I try to do today. The procedure and risks were explained to the patient which include but are not limited to medication reactions and anesthesia risks, bleeding, perforation, aspiration, infection and pancreatitis. I explained that pancreatitis can occur in up to 10% of patients and it can be severe and life threatening. The alternative surgical approach with common bile duct exploration was explained. She is willing to proceed. We will need eventual cholecystectomy also continue antibiotics for now. 2. Elevated LFTs; is from the common bile duct obstruction, we expect resolution if I can remove the blockage. 3. Right flank and upper back pain; likely from stones causing common bile duct obstruction. 4. Erosive esophagitis; recommend p.o. Protonix. MTDD
--- NOTE | 2016-08-06 08:38 | Hospitalist Progress Note ---
Hospitalist Progress Note Date of Service Aug 06, 2016. (Odalis Thomas PA-C) Subjective Pt evaluation today including: conversation w/ patient, physical exam, chart review, lab review, review of studies Pain: Mild abdominal, RUQ PO Intake: Full liquid Voiding: no voiding problems The patient was seen and examined this morning. Pt reports doing well today, her pain is well controlled, she actually hasn't taken pain medication since Saturday night. She has been up and walking about the room with walker, prior to this hospitalization she did not require ambulation assistance. She is now weaned down to 1L O2, and sats are adequate at 95%- she denies any shortness of breath or cp. Pt does notice her lower extremities are a little swollen today. She tolerated a full liquid diet for breakfast and ordered this for lunch. She passing gas but denies BM yet. Constitutional: No fever, No chills, No sweats Eyes: No redness, No diplopia ENT: No sore throat, No trouble swallowing Respiratory: No cough, No wheezing, No shortness of breath Cardiovascular: No chest pain, No palpitations Abdomen: + pain, No nausea, No vomiting, No diarrhea Musculoskeletal: + swelling, No joint pain, No muscle pain Female : No dysuria Neurologic: No weakness, No numbness/tingling Endo: No fatigue Skin: No rash, No itch (Odalis Thomas, PHILLIP) Objective Vital Signs Date Time Temp Pulse Resp B/P (MAP) Pulse Ox O2 Delivery O2 Flow Rate FiO2 08/06/16 07:32 36.5 70 16 114/74 (87) 95 Nasal Cannula 2.0 08/06/16 05:47 91 Nasal Cannula 2.0 08/06/16 03:50 36.5 66 16 116/76 (89) 96 Nasal Cannula 2.0 08/05/16 23:50 Nasal Cannula 2.0 08/05/16 22:55 36.5 73 18 126/82 (97) 98 Nasal Cannula 2.0 08/05/16 22:03 98 Nasal Cannula 2.0 08/05/16 20:30 99 Nasal Cannula 2.0 Humidified Oxygen 08/05/16 19:46 36.4 66 18 128/68 (88) 98 Nasal Cannula 4.0 08/05/16 19:02 99 Nasal Cannula 4.0 Humidified Oxygen 08/05/16 15:40 97 Nasal Cannula 6.0 Humidified Oxygen 08/05/16 14:38 36.5 62 24 128/68 (88) 95 6.0 08/05/16 13:30 36.4 63 24 134/82 (99) 97 6.0 08/05/16 13:01 95 Nasal Cannula 6.0 Humidified Oxygen 08/05/16 12:30 60 32 124/75 (91) 96 BiPAP 08/05/16 11:56 62 29 117/71 (86) 95 BiPAP 08/05/16 11:30 36.5 65 22 130/67 (88) 95 BiPAP 30 08/05/16 11:30 96 BiPAP 08/05/16 11:30 96 Nasal Cannula 6.0 08/05/16 11:15 67 20 130/69 97 BiPAP 40 08/05/16 11:13 64 98 40 08/05/16 11:05 36.0 70 24 135/78 97 BiPAP 40 08/05/16 10:55 64 20 131/63 96 BiPAP 40 08/05/16 10:45 67 24 143/65 97 BiPAP 40 08/05/16 10:35 71 22 144/67 95 BiPAP 40 08/05/16 10:28 71 94 40 08/05/16 10:26 36.0 81 24 136/69 95 BiPAP 40 (Odalis Thomas, PA-C) Physical Exam General Appearance: WD/WN, no apparent distress Eyes: PERRL, EOMI, + pertinent finding (+exopthalmus) ENT: hearing grossly normal, pharynx normal Neck: supple, no JVD Respiratory/Chest: chest non-tender, normal breath sounds, + pertinent finding (On 1 L O2 via NC, + faint rhonchi in the RLL, diminished in the left base, no wheeze or rhales.) Cardiovascular: regular rate, rhythm, no murmur Abdomen: normal bowel sounds, non tender, soft, no organomegaly Extremities: non-tender, no calf tenderness, + pedal edema (1+ nonpitting edema in BLE) Neurologic/Psychiatric: pmo consultant II-XII nml as tested, alert, oriented x 3 Skin: normal color, warm/dry (FilipOdalis correia PA-C) Laboratory Results Last 24 Hours Test 08/06/16 05:35 White Blood Count 8.84 K/uL Red Blood Count 3.97 M/uL Hemoglobin 12.3 g/dL Hematocrit 38.9 % Mean Corpuscular Volume 98.0 fL Mean Corpuscular Hemoglobin 31.0 pg Mean Corpuscular Hemoglobin Concent 31.6 g/dl Platelet Count 234 K/uL Mean Platelet Volume 10.1 fL Neutrophils (%) (Auto) 80.8 % Lymphocytes (%) (Auto) 10.0 % Monocytes (%) (Auto) 8.3 % Eosinophils (%) (Auto) 0.5 % Basophils (%) (Auto) 0.2 % Neutrophils # (Auto) 7.15 K/uL Lymphocytes # (Auto) 0.88 K/uL Monocytes # (Auto) 0.73 K/uL Eosinophils # (Auto) 0.04 K/uL Basophils # (Auto) 0.02 K/uL RDW Standard Deviation 48.0 fL RDW Coefficient of Variation 13.3 % Immature Granulocyte % (Auto) 0.2 % Immature Granulocyte # (Auto) 0.02 K/uL Prothrombin Time 10.7 SECONDS Prothromb Time International Ratio 1.0 Activated Partial Thromboplast Time 27.0 SECONDS Partial Thromboplastin Ratio 1.0 Sodium Level 144 mmol/L Potassium Level 3.4 mmol/L Chloride Level 107 mmol/L Carbon Dioxide Level 28 mmol/L Anion Gap 9.0 mmol/L Blood Urea Nitrogen 11 mg/dl Creatinine 0.97 mg/dl Est Creatinine Clear Calc Drug Dose 52.4 ml/min Estimated GFR () 64.8 Estimated GFR (Non- 55.9 BUN/Creatinine Ratio 11.1 Random Glucose 108 mg/dl Calcium Level 8.7 mg/dl Magnesium Level 2.0 mg/dl Total Bilirubin 1.3 mg/dl Direct Bilirubin 0.6 mg/dl Aspartate Amino Transf (AST/SGOT) 39 U/L Alanine Aminotransferase (ALT/SGPT) 96 U/L Alkaline Phosphatase 188 U/L Total Protein 6.4 gm/dl Albumin 2.8 gm/dl Amylase Level 27 U/L Lipase 101 U/L (Odalis Thomas PA-C) Assessment and Plan 76 yo female with h/o atrial fibrillation, more recent h/p spontaneous retroperitoneal hematoma, presents with RUQ pain, one week duration, CT showed CBD stones with dilation, gall bladder contracted Choledocholithiasis with evidence of biliary dilation, contracted gall bladder, possible cholangitis - treated initially with IV fluids, Zosyn IV, afebrile, WBC normalized and pain improved, Bili trended up slightly yesterday - underwent ERCP on 08/04, sphincterotomy, stone removal and CBD stent placed per GI, stent will come out in 4-6 weeks - s/p lap cholecystectomy 08/05, no complications - pain control, diet per surgery as well as discharge timing - WBC normal at 8K, Bili and other LFTs trending down - Zosyn IV on board x 3 days- can transition to cipro/flagyl at time of discharge to total 10 day course. Recent Retroperitoneal hematoma: - resolving on CT scan, continue to hold Coumadin - Allow ASA 81 mg po daily Atrial fibrillation, chronic - continue metoprolol succ 50 mg QAM, no Coumadin due to RPH recently Chronic diastolic HF: - Was given dose of Lasix 40 mg IV last evening and IVFs turned off. Home dosage of Lasix is 40 mg PO daily, will resume today - Respiratory status improving, down to 1L O2 at this point, normally does not require any, wean as able. Restless leg syndrome -continue ropinirole 1 mg by mouth at bedtime. GERD -continue pantoprazole 40 mg daily Hypothyroidism - Synthroid 75 mcg daily DVT prophylaxis: SCD, teds, no chemical anticoagulation due to retroperitoneal bleed. Disposition: s/p lap selina, no BM yet, tolerating full liquids, advance per surgery, possibly d/c tomorrow. (Odalis Thomas, PAEstefania) Attending Attestation & Admission Note: Pt seen/examined, chart reviewed, and care plan d/w AUSTIN Thomas. I agree w/ the irizarry components of her documentation. Pt feeling "great". Scant abdominal pain. No n/v. +flatus. tolerating diet. No dyspnea VSS no fever gen - nad neck - no obvious JVD heart - irregular lungs - crackles b/l bases abd - soft, NT ext - no edema labs - LFTs normalizing BMP stable except K 3.4 A/P: 1. choledocholithiasis - s/p ERCP with stone extraction & stent placement. Lipase, LFTs stable. No signs of recurrent stone, etc. 2. s/p lap selina 3. acute diastolic CHF - improving. Give additional dose of po lasix this evening. 4. hypothyroidism - TSH in May was high; repeat in am. hopefully home tomorrow Krys GRACE MD (Theodore Grace MD)
[2016-08-06] MEDS: ASPIRIN 81 MG ECTAB PO SCH (08:51)
[2016-08-06] MEDS: METOPROLOL SUCC 50MG EXT REL TAB PO SCH (08:51)
--- NOTE | 2016-08-06 08:57 | Surgery Progress Note ---
Surgery Progress Note Date of Service Aug 06, 2016. Subjective Post OP Day: 1 (s/p laparoscopic cholecystectomy) + feeling well, + SOB, + diet (tolerating full liquids), No chest pain, No nausea, No vomiting Objective Vital Signs: Date Time Temp Pulse Resp B/P (MAP) Pulse Ox O2 Delivery O2 Flow Rate FiO2 08/06/16 07:39 Nasal Cannula 2.0 08/06/16 07:32 36.5 70 16 114/74 (87) 95 Nasal Cannula 2.0 08/06/16 05:47 91 Nasal Cannula 2.0 08/06/16 03:50 36.5 66 16 116/76 (89) 96 Nasal Cannula 2.0 08/05/16 23:50 Nasal Cannula 2.0 08/05/16 22:55 36.5 73 18 126/82 (97) 98 Nasal Cannula 2.0 08/05/16 22:03 98 Nasal Cannula 2.0 08/05/16 20:30 99 Nasal Cannula 2.0 Humidified Oxygen 08/05/16 19:46 36.4 66 18 128/68 (88) 98 Nasal Cannula 4.0 08/05/16 19:02 99 Nasal Cannula 4.0 Humidified Oxygen 08/05/16 15:40 97 Nasal Cannula 6.0 Humidified Oxygen 08/05/16 14:38 36.5 62 24 128/68 (88) 95 6.0 08/05/16 13:30 36.4 63 24 134/82 (99) 97 6.0 08/05/16 13:01 95 Nasal Cannula 6.0 Humidified Oxygen 08/05/16 12:30 60 32 124/75 (91) 96 BiPAP 08/05/16 11:56 62 29 117/71 (86) 95 BiPAP 08/05/16 11:30 36.5 65 22 130/67 (88) 95 BiPAP 30 08/05/16 11:30 96 BiPAP 08/05/16 11:30 96 Nasal Cannula 6.0 08/05/16 11:15 67 20 130/69 97 BiPAP 40 08/05/16 11:13 64 98 40 08/05/16 11:05 36.0 70 24 135/78 97 BiPAP 40 08/05/16 10:55 64 20 131/63 96 BiPAP 40 08/05/16 10:45 67 24 143/65 97 BiPAP 40 08/05/16 10:35 71 22 144/67 95 BiPAP 40 08/05/16 10:28 71 94 40 08/05/16 10:26 36.0 81 24 136/69 95 BiPAP 40 General Appearance: WD/WN, no apparent distress Head: normocephalic, atraumatic Neck: trachea midline Respiratory/Chest: lungs clear, normal breath sounds, no respiratory distress, no accessory muscle use, + decreased breath sounds (bilateral anterior bases), + pertinent finding (2 L of O2 via NC) Cardiovascular: regular rate, rhythm, no murmur Abdomen: non distended, soft, + tenderness (appropriate at RUQ incision sites) Incision(s): clean, dry (dressings with dry blood) Laboratory Results: Results Past 24 Hours Test 08/06/16 05:35 Range/Units White Blood Count 8.84 4.8-10.8 K/uL Red Blood Count 3.97 4.2-5.4 M/uL Hemoglobin 12.3 12.0-16.0 g/dL Hematocrit 38.9 37-47 % Mean Corpuscular Volume 98.0 80-100 fL Mean Corpuscular Hemoglobin 31.0 25-34 pg Mean Corpuscular Hemoglobin Concent 31.6 32-36 g/dl Platelet Count 234 130-400 K/uL Mean Platelet Volume 10.1 7.4-10.4 fL Neutrophils (%) (Auto) 80.8 % Lymphocytes (%) (Auto) 10.0 % Monocytes (%) (Auto) 8.3 % Eosinophils (%) (Auto) 0.5 % Basophils (%) (Auto) 0.2 % Neutrophils # (Auto) 7.15 1.4-6.5 K/uL Lymphocytes # (Auto) 0.88 1.2-3.4 K/uL Monocytes # (Auto) 0.73 0.11-0.59 K/uL Eosinophils # (Auto) 0.04 0-0.5 K/uL Basophils # (Auto) 0.02 0-0.2 K/uL RDW Standard Deviation 48.0 36.4-46.3 fL RDW Coefficient of Variation 13.3 11.5-14.5 % Immature Granulocyte % (Auto) 0.2 % Immature Granulocyte # (Auto) 0.02 0.00-0.02 K/uL Prothrombin Time 10.7 9.0-12.0 SECONDS Prothromb Time International Ratio 1.0 0.9-1.1 Activated Partial Thromboplast Time 27.0 21.0-31.0 SECONDS Partial Thromboplastin Ratio 1.0 Sodium Level 144 136-145 mmol/L Potassium Level 3.4 3.5-5.1 mmol/L Chloride Level 107 98-107 mmol/L Carbon Dioxide Level 28 21-32 mmol/L Anion Gap 9.0 3-11 mmol/L Blood Urea Nitrogen 11 7-18 mg/dl Creatinine 0.97 0.60-1.20 mg/dl Est Creatinine Clear Calc Drug Dose 52.4 ml/min Estimated GFR () 64.8 Estimated GFR (Non- 55.9 BUN/Creatinine Ratio 11.1 10-20 Random Glucose 108 70-99 mg/dl Calcium Level 8.7 8.5-10.1 mg/dl Magnesium Level 2.0 1.8-2.4 mg/dl Total Bilirubin 1.3 0.2-1 mg/dl Direct Bilirubin 0.6 0-0.2 mg/dl Aspartate Amino Transf (AST/SGOT) 39 15-37 U/L Alanine Aminotransferase (ALT/SGPT) 96 12-78 U/L Alkaline Phosphatase 188 45-117 U/L Total Protein 6.4 6.4-8.2 gm/dl Albumin 2.8 3.4-5.0 gm/dl Amylase Level 27 25-115 U/L Lipase 101 73-393 U/L Assessment & Plan POD # 1 s/p Laparoscopic cholecystectomy - vitals stable - currently on 2 liters of O2 via nasal canula, takes Lasix at home - minimal abdominal pain - tolerating full liquids - no leukocytosis - total bili, direct bili, LFTs trending down Plan: Continue Pain management as needed Continue IV antibiotics Advance diet as tolerated (low fat diet) Will need repeat ERCP and stent removal in 6 weeks Repeat Labs tomorrow am Hopeful discharge tomorrow Re-evaluated patient at 4:[address] Bey. Patient doing well tolerated full liquids for lunch Pain minimal 96% on room air Continue plan as above Dr. Bey has seen patient, agrees with above
[2016-08-06] MEDS: POTASSIUM CHLORIDE 20 MEQ TABCR PO SCH ×2 (10:40→20:20)
[2016-08-06] MEDS: FUROSEMIDE 40 MG TAB PO SCH (12:39)
--- NOTE | 2016-08-06 15:48 | PROGRESS NOTE ---
DATE: 08/06/2016 SUBJECTIVE: The patient is now postoperative day #1 for laparoscopic cholecystectomy. She had an ERCP with sphincterotomy, stent placement and clearing of the bile duct stones and sludge. There may be some residual stones in the bile duct. The patient is currently having a little bit of postsurgical pain, but her vital signs are normal. She is afebrile. LABORATORY DATA: Shows a normal white count. Bilirubin is 1.3 down from 4.6, alkaline phosphatase is 188 down from 313. IMPRESSION: The patient has cholecystitis status post cholecystectomy. She has common duct stones, which were treated with balloon and basket clearing of the bile ducts as well as a stent placement. PLAN: The plan is to have her come back in about 4-6 weeks to have repeat ERCP and have the stent removed and clear any residual stones or sludge.
[2016-08-06] MEDS ORDERED: FUROSEMIDE 20 MG TAB PO SCH (18:00)
[2016-08-06] MEDS: ROPINIROLE HCL 1 MG TAB PO SCH (20:20)
[2016-08-07] VITALS (9 sets, daily range): BP systolic 101–120; BP diastolic 59–73; PULSE 66–73; TEMP 36.4–36.7; O2SAT 89–94
[2016-08-07] MEDS: PIPERACILL/TAZOBAC IV 3.375 GM in DEXTROSE 5% 100ML IV SCH (03:47)
[2016-08-07] MEDS: LEVOTHYROXINE 75 MCG TAB PO SCH (05:27)
[2016-08-07] MEDS: PANTOprazole SOD 40 MG TAB PO SCH (05:27)
[2016-08-07 06:05] LABS: HEMATOCRIT 37.5 % (37-47); MEAN CELL VOLUME 99.2 fL (80-100); MEAN CORPUSCULAR HEMOGLOBIN 31.7 pg (25-34); PLATELET COUNT 249 K/uL (130-400); RED BLOOD COUNT 3.78 M/uL (4.2-5.4)
[2016-08-07 06:40] LABS: BUN/CREATININE RATIO 9.7 (10-20); CALCIUM 8.2 mg/dl (8.5-10.1); CREATININE 0.98 mg/dl (0.60-1.20); POTASSIUM 3.5 mmol/L (3.5-5.1)
[2016-08-07 06:51] LABS: ALB/GLOB RATIO 0.7 (0.9-2); THYROID STIMULATING HORMONE 1.22 uIu/ml (0.300-4.500)
--- NOTE | 2016-08-07 09:03 | Surgery Progress Note ---
Surgery Progress Note Date of Service Aug 07, 2016. Subjective Post OP Day: 2 + feeling well, + ambulating, + flatus, + pain controlled, + diet (regular diet) , No complaints, No chest pain, No SOB, No bowel movement, No nausea, No vomiting Objective Vital Signs: Date Time Temp Pulse Resp B/P (MAP) Pulse Ox O2 Delivery O2 Flow Rate FiO2 08/07/16 07:43 90 Room Air 08/07/16 07:37 36.4 66 24 102/68 (79) 90 Room Air 08/06/16 23:03 36.7 77 18 121/75 (90) 94 Room Air 08/06/16 19:45 96 Room Air 08/06/16 19:19 36.6 68 16 110/58 (75) 95 Room Air 08/06/16 15:20 96 Room Air 08/06/16 14:51 36.5 61 18 107/67 (80) 95 Nasal Cannula 1.0 08/06/16 12:23 36.5 81 18 144/68 (93) 94 Nasal Cannula 2.0 General Appearance: WD/WN, no apparent distress Head: normocephalic, atraumatic Neck: trachea midline Respiratory/Chest: lungs clear, normal breath sounds, no respiratory distress, no accessory muscle use Cardiovascular: regular rate, rhythm, no murmur Abdomen: non distended, soft, + tenderness (ruq at incision sites, appropriate) Incision(s): findings (dressings intact, some dried blood present, no change from yesterday) Laboratory Results: Results Past 24 Hours Test 08/07/16 05:40 Range/Units White Blood Count 7.80 4.8-10.8 K/uL Red Blood Count 3.78 4.2-5.4 M/uL Hemoglobin 12.0 12.0-16.0 g/dL Hematocrit 37.5 37-47 % Mean Corpuscular Volume 99.2 80-100 fL Mean Corpuscular Hemoglobin 31.7 25-34 pg Mean Corpuscular Hemoglobin Concent 32.0 32-36 g/dl RDW Standard Deviation 48.1 36.4-46.3 fL RDW Coefficient of Variation 13.5 11.5-14.5 % Platelet Count 249 130-400 K/uL Mean Platelet Volume 10.0 7.4-10.4 fL Sodium Level 143 136-145 mmol/L Potassium Level 3.5 3.5-5.1 mmol/L Chloride Level 104 98-107 mmol/L Carbon Dioxide Level 31 21-32 mmol/L Anion Gap 8.0 3-11 mmol/L Blood Urea Nitrogen 9 7-18 mg/dl Creatinine 0.98 0.60-1.20 mg/dl Est Creatinine Clear Calc Drug Dose 51.9 ml/min Estimated GFR () 64.0 Estimated GFR (Non- 55.3 BUN/Creatinine Ratio 9.7 10-20 Random Glucose 94 70-99 mg/dl Calcium Level 8.2 8.5-10.1 mg/dl Total Bilirubin 0.9 0.2-1 mg/dl Direct Bilirubin 0.4 0-0.2 mg/dl Aspartate Amino Transf (AST/SGOT) 19 15-37 U/L Alanine Aminotransferase (ALT/SGPT) 68 12-78 U/L Alkaline Phosphatase 165 45-117 U/L Total Protein 6.4 6.4-8.2 gm/dl Albumin 2.7 3.4-5.0 gm/dl Globulin 3.7 2.5-4.0 gm/dl Albumin/Globulin Ratio 0.7 0.9-2 Amylase Level 24 25-115 U/L Lipase 125 73-393 U/L Thyroid Stimulating Hormone (TSH) 1.220 0.300-4.500 uIu/ml Assessment & Plan POD # 2 s/p Laparoscopic cholecystectomy - vitals stable - minimal abdominal pain - Total bilirubin normalized - direct bilirubin 0.4, slightly high but improving - LFTS trending down and normalized - no shortness of breath and has not required any further O2 via NC Plan: From surgical standpoint patient can be discharged home She will need follow-up with Dr. Lin in 1-2 weeks, discharge instructions given Continue current management by hospitalist. Dr. Bey has seen and examined patient, agrees with above.
[2016-08-07] MEDS: ASPIRIN 81 MG ECTAB PO SCH (09:27)
[2016-08-07] MEDS: METOPROLOL SUCC 50MG EXT REL TAB PO SCH (09:27)
[2016-08-07] MEDS: FUROSEMIDE 40 MG TAB PO SCH (09:28)
[2016-08-07] MEDS: POTASSIUM CHLORIDE 20 MEQ TABCR PO SCH ×2 (09:28→21:58)
[2016-08-07] MEDS: CIPROFLOXACIN 500 MG TAB PO SCH ×2 (11:15→21:56)
[2016-08-07] MEDS: METRONIDAZOLE 500 MG TAB PO SCH ×3 (11:16→21:57)
--- NOTE | 2016-08-07 11:22 | Discharge Instructions ---
Discharge Instructions Date of Service Aug 07, 2016. Admission Reason for Admission: Cholecystitis, Common Bile Duct Obstruction Discharge Discharge Diagnosis / Problem: Acute calculous cholecystitis Discharge Goals Goal(s): Decrease discomfort Activity Recommendations Activity Limitations: as noted below No heavy lifting over 20 pounds for 2 weeks No submerging incisions underwater for 2 weeks [address] while taking narcotic pain medication . Instructions / Follow-Up Instructions / Follow-Up Light activity and walking is encouraged to prevent blood clots Follow-up with Dr. Lin or Jessica Savage PA-C in 1-2 weeks please call office at [phone] to make an appointment You should have a follow-up with GI doctor for repeat ERCP in 6 weeks You may remove dressings tomorrow and shower Would avoid fatty/greasy foods for 3-4 weeks Current Hospital Diet Patient's current hospital diet: Low Fat Diet Discharge Diet Recommended Diet: Regular Diet Procedures Procedures Performed: Laparoscopic Cholecystectomy Pending Studies Studies pending at discharge: no Medical Emergencies . Who to Call and When: Medical Emergencies: If at any time you feel your situation is an emergency, please call 911 immediately. . Non-Emergent Contact Non-Emergency issues call your: Primary Care Provider, Surgeon Call Non-Emergent contact if: you have a fever, temperature is above 101, your pain is not controlled, your pain is worsening, wound has increased drainage, wound has increased redness, wound has increased pain . "Provider Documentation" section prepared by Jessica Savage. . VTE Core Measure Inpt VTE Proph given/why not?: SCD's
[2016-08-07] MEDS ORDERED: FUROSEMIDE INJ 20 MG in SYRINGE 0 ML IV ONE (15:00)
[2016-08-07] MEDS ORDERED: POTASSIUM CHLORIDE 10 MEQ TABCR PO ONE (15:00)
--- NOTE | 2016-08-07 21:53 | Progress Note ---
Subjective Date of Service: Aug 07, 2016. Subjective Pt evaluation today including: conversation w/ patient, conversation w/ family (daughter ), physical exam, chart review, lab review Pain: scant abdominal pain PO Intake: normal, eating fine Voiding: no voiding problems o2 sats w/ walking today, in room air, about 89-90% pt states baseline weight at home is about 182 pounds she has mild dyspnea with walking in the hallways but no dyspnea at rest and no orthopnea continues with LE edema (mild) no BM yet but passing plenty of flatus Problem List Medical Problems: (1) Bilateral pneumonia Status: Acute (2) CHF (congestive heart failure) Status: Acute (3) Cholecystitis Status: Acute (4) Elevated INR Status: Acute (5) Hematoma of right iliopsoas muscle Status: Acute (6) Hypoxia Status: Acute (7) Right upper quadrant abdominal pain Status: Acute (8) Supratherapeutic INR Status: Acute Review of Systems Constitutional: No fever, No chills Respiratory: + dyspnea on exertion, No cough, No sputum, No wheezing, No shortness of breath, No dyspnea at rest, No hemoptysis Cardiac: + edema, No chest pain, No orthopnea Abdomen: + pain, + constipation, No nausea, No vomiting, No diarrhea, No GI bleeding Objective Vital Signs Date Time Temp Pulse Resp B/P (MAP) Pulse Ox O2 Delivery O2 Flow Rate FiO2 08/07/16 15:20 Nasal Cannula 2.0 08/07/16 15:06 36.7 71 18 101/59 (73) 94 Room Air 08/07/16 13:21 90 Room Air 08/07/16 13:15 90 Room Air 08/07/16 10:00 90 08/07/16 09:55 89 08/07/16 09:45 90 08/07/16 07:45 Room Air 08/07/16 07:43 90 Room Air 08/07/16 07:37 36.4 66 24 102/68 (79) 90 Room Air 08/06/16 23:03 36.7 77 18 121/75 (90) 94 Room Air Physical Exam General Appearance: no apparent distress ENT: pharynx normal Neck: no JVD (sitting upright in chair) Respiratory/Chest: no respiratory distress, no accessory muscle use, + crackles (both bases) Cardiovascular: no gallop, no murmur, + irregularly irregular Abdomen: normal bowel sounds, non tender, soft, no organomegaly Extremities: + pedal edema (trace-1+ edema b/l ) Neurologic/Psychiatric: alert, oriented x 3 Skin: + pertinent finding (incisions & dressings on abd wall clean ) Laboratory Results Last 24 Hours Test 08/07/16 05:40 White Blood Count 7.80 K/uL Red Blood Count 3.78 M/uL Hemoglobin 12.0 g/dL Hematocrit 37.5 % Mean Corpuscular Volume 99.2 fL Mean Corpuscular Hemoglobin 31.7 pg Mean Corpuscular Hemoglobin Concent 32.0 g/dl RDW Standard Deviation 48.1 fL RDW Coefficient of Variation 13.5 % Platelet Count 249 K/uL Mean Platelet Volume 10.0 fL Sodium Level 143 mmol/L Potassium Level 3.5 mmol/L Chloride Level 104 mmol/L Carbon Dioxide Level 31 mmol/L Anion Gap 8.0 mmol/L Blood Urea Nitrogen 9 mg/dl Creatinine 0.98 mg/dl Est Creatinine Clear Calc Drug Dose 51.9 ml/min Estimated GFR () 64.0 Estimated GFR (Non- 55.3 BUN/Creatinine Ratio 9.7 Random Glucose 94 mg/dl Calcium Level 8.2 mg/dl Total Bilirubin 0.9 mg/dl Direct Bilirubin 0.4 mg/dl Aspartate Amino Transf (AST/SGOT) 19 U/L Alanine Aminotransferase (ALT/SGPT) 68 U/L Alkaline Phosphatase 165 U/L Total Protein 6.4 gm/dl Albumin 2.7 gm/dl Globulin 3.7 gm/dl Albumin/Globulin Ratio 0.7 Amylase Level 24 U/L Lipase 125 U/L Thyroid Stimulating Hormone (TSH) 1.220 uIu/ml Assessment and Plan 76yo female: 1. choledocholithiasis - s/p ERCP with stone extraction & stent placement. Lipase, LFTs stable. No signs of recurrent stone, etc. 2. question of cholangitis - stop zosyn; today is day #5 of abx. Change to cipro/flagyl; complete 5 more days of such. 3. s/p lap selina for chronic cholecystitis and #1 - doing well from surgical standpoint. 4. acute diastolic CHF - improving but still about 8 pounds above baseline weight. Give additional dose of IV lasix 20mg this afternoon. Re-eval in am. 5. hypothyroidism - compensated; continue synthroid same dose. 6. restless legs - continue requip; consider iron studies as outpatient. 7. h/o retroperitoneal hemorrhage - recent imaging with smaller fluid collection. 8. a. fib - rates controlled with beta sherry. Not on anticoagulation due to #7. 9. DVT proph - SCDs, no chemical means due to previous retroperitoneal bleeding. PT, OT have cleared for home hopefully home in AM if respiratory status is stable Continued [facility] stay due to: multiple IV medications needed Discharge planning: home
[2016-08-07] MEDS: ROPINIROLE HCL 1 MG TAB PO SCH (21:58)
[2016-08-08] VITALS (8 sets, daily range): BP systolic 120; BP diastolic 74; PULSE 66; TEMP 36.8; O2SAT 88–99
[2016-08-08] MEDS: LEVOTHYROXINE 75 MCG TAB PO SCH (06:10)
[2016-08-08] MEDS: PANTOprazole SOD 40 MG TAB PO SCH (06:10)
[2016-08-08 06:40] LABS: BUN/CREATININE RATIO 8.8 (10-20); CALCIUM 8.5 mg/dl (8.5-10.1); CREATININE 0.95 mg/dl (0.60-1.20); POTASSIUM 3.7 mmol/L (3.5-5.1)
[2016-08-08] MEDS: CIPROFLOXACIN 500 MG TAB PO SCH (08:52)
[2016-08-08] MEDS: FUROSEMIDE 40 MG TAB PO SCH (08:54)
[2016-08-08] MEDS: POTASSIUM CHLORIDE 20 MEQ TABCR PO SCH (08:55)
[2016-08-08] MEDS: ASPIRIN 81 MG ECTAB PO SCH (08:55)
[2016-08-08] MEDS: METOPROLOL SUCC 50MG EXT REL TAB PO SCH (08:55)
[2016-08-08] MEDS: METRONIDAZOLE 500 MG TAB PO SCH ×2 (08:56→13:55)
--- NOTE | 2016-08-08 09:05 | Surgery Progress Note ---
Surgery Progress Note Date of Service Aug 08, 2016. Subjective Post OP Day: 3 + feeling well, + SOB (slight shortness of breath on walking, fluid overloaded yesterday, still receiving lasix), + flatus, + pain controlled, + diet ( tolerating regular diet), No complaints, No chest pain, No bowel movement, No nausea, No vomiting Objective Vital Signs: Date Time Temp Pulse Resp B/P (MAP) Pulse Ox O2 Delivery O2 Flow Rate FiO2 08/08/16 07:49 95 Nasal Cannula 2.0 08/08/16 07:33 36.8 66 20 120/74 (89) 95 Nasal Cannula 2.0 08/08/16 06:10 99 Nasal Cannula 1.0 08/08/16 04:20 88 Nasal Cannula 2.0 08/07/16 23:20 Room Air 08/07/16 22:49 36.5 73 18 120/73 (89) 92 Room Air 08/07/16 15:20 Nasal Cannula 2.0 08/07/16 15:06 36.7 71 18 101/59 (73) 94 Room Air 08/07/16 13:21 90 Room Air 08/07/16 13:15 90 Room Air 08/07/16 10:00 90 08/07/16 09:55 89 08/07/16 09:45 90 General Appearance: WD/WN, no apparent distress Head: normocephalic, atraumatic Neck: trachea midline Respiratory/Chest: lungs clear, normal breath sounds, no respiratory distress, no accessory muscle use Cardiovascular: regular rate, rhythm, no murmur Abdomen: non tender, non distended, soft, no organomegaly Incision(s): clean, dry, intact, no erythema, no drainage, findings (dressings removed and incisions dry, dry blood present on steri strips) Laboratory Results: Results Past 24 Hours Test 08/08/16 05:50 Range/Units Sodium Level 141 136-145 mmol/L Potassium Level 3.7 3.5-5.1 mmol/L Chloride Level 103 98-107 mmol/L Carbon Dioxide Level 34 21-32 mmol/L Anion Gap 4.0 3-11 mmol/L Blood Urea Nitrogen 8 7-18 mg/dl Creatinine 0.95 0.60-1.20 mg/dl Est Creatinine Clear Calc Drug Dose 54.1 ml/min Estimated GFR () 66.5 Estimated GFR (Non- 57.4 BUN/Creatinine Ratio 8.8 10-20 Random Glucose 99 70-99 mg/dl Calcium Level 8.5 8.5-10.1 mg/dl Assessment & Plan POD # 3 s/p Laparoscopic cholecystectomy - vitals stable - minimal abdominal pain - Total bilirubin normalized - direct bilirubin 0.4 (yesterday), improving - LFTS trending down and normalized (yesterday) - has required some oxygen on ambulation Plan: From surgical standpoint patient can be discharged home She will need follow-up with Dr. Lin in 1-2 weeks, discharge instructions given Continue current management by hospitalist. Signing off, please call with any concerns Dr. Lin has seen and examined patient, agrees with above. Pt seen and examined. Agree with note above. Doing well. Stable for discharge from surgical standpoint once medical issues resolved. Will sign off- please call with questions.
[2016-08-08] MEDS ORDERED: MTR500 PO (10:13)
[2016-08-08] MEDS ORDERED: CPR500 PO (10:13)
--- NOTE | 2016-08-08 10:17 | Discharge Instructions ---
Discharge Instructions Date of Service Aug 08, 2016. Admission Reason for Admission: Cholecystitis, Common Bile Duct Obstruction Discharge Discharge Diagnosis / Problem: Cholecystitis, common bile duct obstruction due to gallstone, cholangitis Discharge Goals Goal(s): Decrease discomfort, Improve function, Increase independence, Improve disease control Activity Recommendations Activity Limitations: resume your previous activity Lifting Limitations: none, gradually increase as tolerated (No more than 20 pounds for 2 weeks.) Exercise/Sports Limitations: none, gradually increase as tolerated Shower/Bathe: no limitations . Instructions / Follow-Up Instructions / Follow-Up You were admitted to [facility] with abdominal pain and diagnosed with Acute cholecystitis, common bile duct obstruction, and cholangitis. - During your stay here you were treated with intravenous antibiotics, pain control, and underwent a laparoscopic cholecystectomy (removal of the gallbladder), and a biliary stent was placed. In regards to your heart: - Continue to take a double dose of Lasix until you are back to your normal weight of ~182 lbs. This means taking Lasix 40 mg in the morning and 40 mg in the evening until you reach that point. Weigh yourself every day. - You will need a repeat Chest X ray within 1 month to assess your lungs. This should be ordered by your Family doctor. Medications: - Continue taking antibiotics: Cipro and flagyl for the next 4 days, finish on as directed to cover possible cholangitis. This will total a 10 day course of antibiotics. Per surgery: The biliary stent will need to be removed in 6 weeks via ERCP. Follow-up with Dr. Lin or Jessica Savage PA-C in 1-2 weeks please call office at [phone] to make an appointment Would avoid fatty/greasy foods for 3-4 weeks Follow up: Follow up with your Primary Care Provider within 1 week. Follow up with Dr. Aponte within 1-2 weeks. Current Hospital Diet Patient's current hospital diet: Low Fat Diet Discharge Diet Recommended Diet: Low Fat Diet Procedures Procedures Performed: Laparoscopic Cholecystectomy Pending Studies Studies pending at discharge: no Medical Emergencies . Who to Call and When: Medical Emergencies: If at any time you feel your situation is an emergency, please call 911 immediately. . Non-Emergent Contact Non-Emergency issues call your: Primary Care Provider Call Non-Emergent contact if: you have a fever, temperature is above 100.5, your pain is not controlled, your pain is worsening, you have any medication questions If you develop worsening abdominal pain, nausea, vomiting, diarrhea, constipation, fevers, chills or sweats, or if you have other concerns regarding your health. . Past History Medical & Surgical History: (1) Cholecystitis (2) Common bile duct (CBD) obstruction (3) Retroperitoneal bleed (4) Restless leg syndrome (5) Hypertension (6) Pacemaker . "Provider Documentation" section prepared by Bailee Thomas. Attending Attestation: Pt seen/examined and discharge care plan d/w AUSTIN Thomas. I agree w/ her discharge instructions as outlined. Theodore Grace MD . VTE Core Measure Inpt VTE Proph given/why not?: Tray Verdin, SCD's
[2016-08-08] MEDS ORDERED: POLYETHYLENE (MIRALAX) 17 GM PACK PO SCH (12:30)
--- NOTE | 2016-08-08 12:51 | Discharge Summary ---
Discharge Summary Date of Service Aug 08, 2016. (Odalis Thomas PA-C) Discharge Summary Admission Date: Aug 03, 2016 at 19:59 Discharge Date: Aug 08, 2016 Discharge Disposition: Home Principal Diagnosis: Cholecystitis, common bile duct obstruction due to gallstone, cholangitis Problems/Secondary Diagnoses: chronic atrial fibrillation, diastolic CHF, more recent h/p spontaneous retroperitoneal hematoma, restless leg syndrome, GERD Immunizations: Have You Had Influenza Vaccine: No Procedures: CHEST ONE VIEW PORTABLE 08/03/16 IMPRESSION: 1. Decrease in size in the small right pleural effusion. 2. Right basilar linear densities favor subsegmental atelectasis. This has also improved. 3. Stable cardiomegaly. ABDOMEN AND PELVIS CT WITHOUT CONTRAST 08/03/16 IMPRESSION: 1. Distended common bile duct. There are 2 stones within the distal common bile duct measuring 1 cm. ERCP is recommended for further evaluation. 2. The gallbladder is contracted. 3. Decrease in size in the 6 cm right retroperitoneal fluid collection. This favors a resolving hematoma. 4. Decrease in size in the small right pleural effusion. 5. Additional findings as described above. ERCP 08/04/16 Impression: - The common bile duct and common hepatic duct were severely dilated, with multiple stones and sludge causing an obstruction. - The stone and sludge confirmed on cholangiogram - A sphincterotomy was performed. - The biliary tree was swept with multiple balloons. - The biliary tree was swept with a basket. - One plastic stent was placed into the common bile duct. - Choledocholithiasis was found. Partial removal was accomplished with biliary sphincterotomy; a stent was inserted. Recommendation: - [facility]. - Recommend cholecystectomy and then elective repeat ERCP with stent removal to clear rest of the duct. - The findings and recommendations were discussed with the patient's family (daughter and son in law). ERCP BILIARY PANCREATIC 08/04/16 IMPRESSION: Common bile duct stent placement. Distended biliary ductal system. Consultations: General Surgery Gastroenterology (Odalis Thomas PA-C) Problems/Secondary Diagnoses: acute/chronic diastolic CHF (Theodore Grace MD) Medication Reconciliation New Medications: Ciprofloxacin (Ciprofloxacin HCl) 500 Mg Tab 500 MG PO BID for 4 Days, #8 TAB Metronidazole (Metronidazole) 500 Mg Tab 500 MG PO TID for 4 Days, #12 TAB Continued Medications: Aspirin (Aspirin EC Low Dose) 81 Mg Ectab 81 MG PO DAILY for 30 Days, 3 Refills Cholecalciferol (D 5000) 5,000 Unit Tab 5000 INTERUNIT PO DAILY Furosemide (Furosemide) 40 Mg Tab 40 MG PO QAM for 30 Days, #30 TAB Levothyroxine Sodium (Levothyroxine Sodium) 75 Mcg Tab 75 MCG PO DAILY for 30 Days, #30 TAB 5 Refills Metoprolol Succ (Toprol Xl) (Toprol-Xl) 50 Mg Tabcr 50 MG PO DAILY, #30 TAB Pantoprazole (Protonix) 40 Mg Tab 40 MG PO QAM, #30 TAB Potassium Chloride (Micro-K Ext Rel) 10 Meq Capcr 20 MEQ PO DAILY, CAP Ropinirole (Requip) 1 Mg Tab 1 MG PO DAILY, TAB Discharge Exam The patient was seen and examined this morning. Pt reports doing well today, she reports swelling in her lower extremities is much better today that it has been. She denies any acute complaints. She has no incisional pain, no need for pain medications, has been walking without difficulty, and tolerating a regular diet. She is passing gas but has still not had a BM since Saturday. She normally takes mirilax at home which alleviates this. Review of Systems: Constitutional: No fever, No chills, No sweats, No fatigue ENT: No sore throat, No trouble swallowing Respiratory: No sputum, No shortness of breath, No dyspnea on exertion Cardiovascular: No chest pain, No edema, No palpitations Abdomen: No pain, No nausea, No vomiting, No diarrhea Musculoskeletal: No joint pain, No swelling Genitourinary - Female: No dysuria Neurologic: No weakness, No numbness/tingling Endocrine: No fatigue Integumentary: No rash, No itch Physical Exam: General Appearance: WD/WN, no apparent distress Eyes: PERRL, EOMI, + pertinent finding (+exopthalmos) ENT: hearing grossly normal, pharynx normal Neck: supple, no JVD Respiratory/Chest: chest non-tender, lungs clear, no respiratory distress, no accessory muscle use Cardiovascular: regular rate, rhythm, no edema, no murmur, normal peripheral pulses Abdomen / GI: normal bowel sounds, non tender, soft, + pertinent finding ( incisions x 4: 2 in the RUQ, 1 in RLQ, and 1 around umbilicus all appear intact , no surrounding signs of erythema. ) Extremities: normal inspection, no calf tenderness, no pedal edema Neurologic/Psychiatric: no motor/sensory deficits, alert, oriented x 3 Skin: normal color, warm/dry (Odalis Thomas, PHILLIP) Hospital Course 76 yo female with h/o atrial fibrillation, more recent h/p spontaneous retroperitoneal hematoma, presents with RUQ pain, one week duration, CT showed CBD stones with dilation, gall bladder contracted Choledocholithiasis with evidence of biliary dilation, contracted gall bladder, possible cholangitis - treated initially with IV fluids, Zosyn IV, afebrile, WBC normalized and pain improved, Bili trended up slightly yesterday - underwent ERCP on 08/04, sphincterotomy, stone removal and CBD stent placed per GI, stent will come out in 4-6 weeks - follow up with Dr. Aponte - s/p lap cholecystectomy 08/05, no complications - pain control, diet per surgery- tolerating regular diet, bowel regimen in place. - WBC normal at 7.8, Bili and other LFTs trending down - Zosyn IV on board x 3 days- can transition to cipro/flagyl at time of discharge to total 10 day course. Recent Retroperitoneal hematoma: - resolving on CT scan, continue to hold Coumadin - Allow ASA 81 mg po daily Atrial fibrillation, chronic - continue metoprolol succ 50 mg QAM, no Coumadin due to RPH recently Chronic diastolic HF: - Was given a few extra doses of IV lasix to become euvolemic again. Home dosage of Lasix is 40 mg PO daily which was resumed 2 days prior to discharge. - Respiratory status at baseline on room air Restless leg syndrome -continue ropinirole 1 mg by mouth at bedtime. GERD -continue pantoprazole 40 mg daily Hypothyroidism - Synthroid 75 mcg daily DVT prophylaxis: SCD, teds, no chemical anticoagulation due to retroperitoneal bleed. Disposition: s/p lap selina, d/c to home today Total Time Spent: Greater than 30 minutes This includes examination of the patient, discharge planning, medication reconciliation, and communication with other providers. (Odalis Thomas, PHILLIP) Attending Discharge Note & Attestation: Pt seen/examined, chart reviewed, and discharge care plan d/w PA Bailee Thomas. I agree w/ the irizarry components of her discharge summary. 76yo female who presented with right flank pain. CT abd/pelvis demonstrated choledocholithiasis. There was clinical concern for cholangitis. She was begun on IV antibiotics and GI was consulted who performed ERCP with stent placement & stone extraction. General surgery ultimately performed laparoscopic cholecystectomy. Her post-op course was complicated by acute/chronic diastolic CHF requiring diuresis. She was restarted on a diet and this was advanced without difficulty. Chest x-ray on day of discharge demonstrated a small pleural effusion but no further pulmonary edema. O2 sat on day of discharge was normal. Discharge exam - gen - nad neck - no JVD heart - irregular, s1, s2 lungs - decreased BS right base (mild), otherwise CTA b/l abd - soft, NT, ND, BS+ skin - incisions on abdomen clean ext - trace edema b/l After discharge she will double her lasix dose until she is back to her baseline dry weight. Follow-up with general surgery and PCP will be needed within 1-2 weeks. Theodore Grace MD (Theodore Grace MD) Discharge Instructions Please refer to the electronic Patient Visit Report (Discharge Instructions) for additional information. (Odalis Thomas PA-C) Follow-Up Follow up with your Primary Care Provider within 1 week. Follow up with Dr. Aponte within 1-2 weeks. (Odalis Thomas PA-C) Additional Copies To Sherwin Aponte M.D.; Chante Lin MD; Lg Rodriguez MD
--- NOTE | 2016-08-08 13:35 | DIAGNOSTIC IMAGING REPORT ---
CHEST 2 VIEWS ROUTINE CLINICAL HISTORY: interval change of infiltrates pneumonia. Fusion. COMPARISON STUDY: 08/03/2016 FINDINGS: Unchanging right pleural effusion. Trace pleural fluid left base. Improving aeration right and to lesser extent left base. Mid and upper lungs remain clear. IMPRESSION: 1. Stable right and to lesser extent left pleural effusion. 2. Improving basilar infiltrative change. Electronically signed by: Gustavo Lamas M.D. 08/08/2016 1:34 PM Dictated Date/Time: 08/08/2016 1:33 PM
[2016-08-28] MEDS ORDERED: FRS/40 PO (12:42)
[2016-08-28] MEDS ORDERED: ASPI81TA28 PO (12:42)
[2016-08-28] MEDS ORDERED: METO-217 PO (12:42)
[2016-08-28] MEDS ORDERED: LEVO75TA5 PO (12:42)
== END 2016-08-08 16:00 | disposition home or self-care (01) | DRG 417 ==
LOC: C.EDB 16:14 → C.MSW 19:59 → ENRESERV 20:13
PROVIDERS: ADMIT Hospitalist; ATTEND Internal Medicine
PROC: 0F798DZ Dilation of Common Bile Duct with Intraluminal Device, Via Natural or Artificial Opening Endoscopic (ICD-10-PCS; 2016-08-04)
PROC: 0FT44ZZ Resection of Gallbladder, Percutaneous Endoscopic Approach (ICD-10-PCS; principal; 2016-08-05 09:00)
DX: K80.41 Calculus of bile duct with cholecystitis, unspecified, with obstruction (principal); K66.1 Hemoperitoneum; I50.33 Acute on chronic diastolic (congestive) heart failure; I48.91 Unspecified atrial fibrillation; K21.9 Gastro-esophageal reflux disease without esophagitis; K20.9 Esophagitis, unspecified; Z79.82 Long term (current) use of aspirin; E03.9 Hypothyroidism, unspecified; Z87.891 Personal history of nicotine dependence; I11.0 Hypertensive heart disease with heart failure

== ENCOUNTER 2016-08-31 07:41 | Day surgery (SDC) | payer OTHER, MEDICARE ==
[2016-08-28 12:42] VITALS: BMI 29.0
[~2016-08-31] VITALS: Ht 167.6 cm; Wt 82.7 kg
[~2016-08-31 07:41] MED LIST changes: -ASPEC81 PO; +ASPI81TA28 PO; -ATOR10TA82 PO; -CRFL PO; -DOCU-94 PO; +FRS/40 PO; +LACTATED RINGER'S 1000ML 1,000 ML IV SCH; -LSX40 PO; +METO-217 PO; -METO50TA7 PO; +PANT40TA PO; -PRT40 PO
[2016-08-31] MEDS ORDERED: EpHEDrine SULFATE INJ 50 MG/ML AMP IV PRN (07:45)
[2016-08-31] MEDS ORDERED: ONDANSETRON INJ 2 MG/ML 2 ML VIAL IV PRN (07:45)
[2016-08-31] MEDS ORDERED: ATROPINE SULFATE 0.1 MG/ML 5ML SYR IV PRN (07:45)
[2016-08-31] MEDS ORDERED: FENTANYL CITRATE INJ 50 MCG/1 ML 2 ML VIAL IV PRN (07:45)
[2016-08-31] MEDS ORDERED: ROCURONIUM BROMIDE 10 MG/ML 5 ML VIAL ONE (07:51)
[2016-08-31] MEDS ORDERED: ONDANSETRON INJ 2 MG/ML 2 ML VIAL ONE (07:51)
[2016-08-31] MEDS ORDERED: DEXAMETHASONE SOD INJ 4 MG/ML VIAL ONE ×2 (07:51→09:40)
[2016-08-31] MEDS ORDERED: GLYCOPYRROLATE INJ 0.2 MG/ML VIAL ONE (07:51)
[2016-08-31] MEDS ORDERED: PROPOFOL IV EMULSION 10 MG/ML 20 ML VIAL IV ONE (07:51)
[2016-08-31] MEDS ORDERED: LIDOCAINE HCL 2% 2 ML VIAL (20MG/ML) ONE (07:51)
[2016-08-31] MEDS ORDERED: NEOSTIGMINE METHYLSULFATE 5 MG/5 ML SYR ONE (07:51)
[2016-08-31] MEDS ORDERED: MIDAZOLAM HCL 1 MG/ML 2ML VIAL ONE (07:52)
[2016-08-31] MEDS ORDERED: FENTANYL CITRATE INJ 50 MCG/1 ML 2 ML VIAL ONE (07:52)
[2016-08-31 07:59] VITALS: BP 146/72; PULSE 82; TEMP 37.1; O2SAT 98; Ht 167.6 cm; Wt 82.7 kg
--- NOTE | 2016-08-31 08:45 | Endo History and Physical ---
History & Physical Date of Service: Aug 31, 2016. Chief Complaint: ERCP for stent exchange /removal CBD stones Referring Physician: History of Present Illness s/p ERCP with CBD stone removal with Dr Aponte. GB removed by Dr Chante Lin. No recent fever, jaundice or anterior abd pain, wt stable. Mild back pain persists but less intense than during admission Past Surgical History Hx Cardiac Surgery: Yes (P[facility]EMAKER 2005) Hx Abdominal Surgery: Yes ([facility]) Hx Post-Op Nausea and Vomiting: No Hx Cancer Surgery: No Hx Thoracic Surgery: No Hx Orthopedic: No Hx Urinary Tract Surgery: No Social History Smoking Status: Former Smoker Hx Substance Use: No Hx Alcohol Use: No Allergies Coded Allergies: No Known Allergies (Unverified , 08/31/16) Current Medications Reported Home Medications Medications Dose Route/Sig Max Daily Dose Days Date Category Levothyroxine Sodium 75 Mcg Tab 1 Tab PO QAM 08/28/16 Reported Lasix (Furosemide) 40 Mg Tab 40 Mg PO QAM 08/28/16 Reported Toprol Xl (Metoprolol Succinate) 50 Mg Tabcr 50 Mg PO QAM 08/28/16 Reported Aspirin Ec (Aspirin) 81 Mg Tab 81 Mg PO QAM 08/28/16 Reported Protonix (Pantoprazole Sodium) 40 Mg Tab 40 Mg PO QAM 08/03/16 Reported D 5000 (Cholecalciferol) 5,000 Unit Tab 5,000 Interunit PO DAILY 04/15/16 Reported Requip (Ropinirole HCl) 1 Mg Tab 1 Mg PO HS 04/15/16 Reported Micro-K Ext Rel (Potassium Chloride) 10 Meq Capcr 20 Meq PO QAM 04/15/16 Reported Vital Signs Weight (Kilograms): 82.73 Height (Feet): 5 Height (Inches): 6 Date Time Temp Pulse Resp B/P (MAP) Pulse Ox O2 Delivery O2 Flow Rate FiO2 08/31/16 07:59 37.1 82 16 146/72 (96) 98 Room Air Physical Exam AAOx3 Nls1s2 Lungs CTA Abd soft Nt/ND + BS - CCE Assessment and Plan for ERCP today stent removal
--- NOTE | 2016-08-31 09:58 | Discharge Instructions ---
Endoscopy Patient Instructions Date / Procedure(s) Performed Aug 31, 2016. ERCP Allergy Information Coded Allergies: No Known Allergies (Unverified , 08/31/16) Discharge Date / Findings Aug 31, 2016. ERCP with stent removal. dilated duct without focal stricture. No stones or sludge liberated. Nop stent replaced. Medication Instructions Restart Stopped Medication(s): Reported Home Medications Medications Dose Route/Sig Max Daily Dose Days Date Category Levothyroxine Sodium 75 Mcg Tab 1 Tab PO QAM 08/28/16 Reported Lasix (Furosemide) 40 Mg Tab 40 Mg PO QAM 08/28/16 Reported Toprol Xl (Metoprolol Succinate) 50 Mg Tabcr 50 Mg PO QAM 08/28/16 Reported Aspirin Ec (Aspirin) 81 Mg Tab 81 Mg PO QAM 08/28/16 Reported Protonix (Pantoprazole Sodium) 40 Mg Tab 40 Mg PO QAM 08/03/16 Reported D 5000 (Cholecalciferol) 5,000 Unit Tab 5,000 Interunit PO DAILY 04/15/16 Reported Requip (Ropinirole HCl) 1 Mg Tab 1 Mg PO HS 04/15/16 Reported Micro-K Ext Rel (Potassium Chloride) 10 Meq Capcr 20 Meq PO QAM 04/15/16 Reported Reported Home Medications Medications Dose Route/Sig Max Daily Dose Days Date Category Levothyroxine Sodium 75 Mcg Tab 1 Tab PO QAM 08/28/16 Reported Lasix (Furosemide) 40 Mg Tab 40 Mg PO QAM 08/28/16 Reported Toprol Xl (Metoprolol Succinate) 50 Mg Tabcr 50 Mg PO QAM 08/28/16 Reported Aspirin Ec (Aspirin) 81 Mg Tab 81 Mg PO QAM 08/28/16 Reported Protonix (Pantoprazole Sodium) 40 Mg Tab 40 Mg PO QAM 08/03/16 Reported D 5000 (Cholecalciferol) 5,000 Unit Tab 5,000 Interunit PO DAILY 04/15/16 Reported Requip (Ropinirole HCl) 1 Mg Tab 1 Mg PO HS 04/15/16 Reported Micro-K Ext Rel (Potassium Chloride) 10 Meq Capcr 20 Meq PO QAM 04/15/16 Reported Provider Instructions Activity Restrictions - No exercising or heavy lifting for 24 hours. - Do not drink alcohol the day of the procedure. - Do not drive a car or operate machinery until the day after the procedure. - Do not make any important decisions or sign important papers in 24 hours after the procedure. Following Day: - Return to full activity which may include returning to work/school. Diet Start your diet with liquids and light foods (jello, soup, juice, toast). Then eat your usual diet if not nauseated. Treatment For Common After Affects For mild abdominal pain, bloating, or excessive gas: - Rest - Eat lightly - Lie on right side Follow-Up Information Follow-up with as scheduled Anesthesia Information What You Should Know You have had a procedure that required some medicine to reduce anxiety and discomfort. This treatment is called moderate sedation. After receiving the treatment, you may be sleepy, but you will be able to breathe on your own. The effects of the treatment may last for several hours. Follow these instructions along with Activity/Diet recommendations noted above: * Do NOT do anything where dizziness or clumsiness would be dangerous. * Rest quietly at home today, then you can be up and about tomorrow. * Have a responsible person stay with you the rest of today. * You may have had an I.V. today. If so, you may take the dressing off later today. Recommendations Call your doctor if: * Trouble breathing * Continuous vomiting for more than 24 hours * Temperature above 101 degrees * Severe abdominal pain or bloating * Pain not relieved by pain medicine ordered * There is increased drainage or redness from any incision * A large amount of rectal bleeding greater than 2-3 tablespoons. (If you had a polyp/s removed or have hemorrhoids, a small amount of blood - from the rectum is to be expected.) * You have any unanswered questions or concerns. IN THE EVENT OF A SERIOUS EMERGENCY, GO TO THE NEAREST EMERGENCY ROOM Your discharge instructions were prepared by provider Akash Dick. Patient Instructions Signature Page Aicha Zhang Patient (or Guardian) Signature/Date: I have read and understand the instructions given to me by my caregivers. Caregiver/RN/Doctor Signature/Date: The above-named patient and/or guardian has received patient instructions on this date. + Original Patient Signature Page (only) stays with chart. Please make copy for patient.
--- NOTE | 2016-08-31 10:22 | GI REPORT ---
Procedure Date: 08/31/2016 8:35 AM Procedure: ERCP Indications: Bile duct stone(s), Follow-up of bile duct stone(s), Biliary stent removal Medicines: General Anesthesia Complications: No immediate complications. Estimated blood loss: None Estimated Blood Loss: Estimated blood loss: none. Procedure: Pre-Anesthesia Assessment: - Prior to the procedure, a History and Physical was performed, and patient medications and allergies were reviewed. The patient's tolerance of previous anesthesia was also reviewed. The risks and benefits of the procedure and the sedation options and risks were discussed with the patient. All questions were answered, and informed consent was obtained. Prior Anticoagulants: The patient has taken no previous anticoagulant or antiplatelet agents. ASA Grade Assessment: III - A patient with severe systemic disease. After reviewing the risks and benefits, the patient was deemed in satisfactory condition to undergo the procedure. After obtaining informed consent, the scope was passed under direct vision. Throughout the procedure, the patient's blood pressure, pulse, and oxygen saturations were monitored continuously. The Scope was introduced through the mouth, and advanced to the duodenum and used to inject contrast into the bile duct. The ERCP was accomplished without difficulty. The patient tolerated the procedure well. Findings: A biliary stent was visible on the manager asset film. The esophagus was successfully intubated under direct vision. The scope was advanced to a normal major papilla in the descending duodenum without detailed examination of the pharynx, larynx and associated structures, and upper GI tract. The upper GI tract was grossly normal. The major papilla was adjacent to a diverticulum. One temporary plastic biliary stent originating in the biliary tree was emerging from the major papilla. The stent was visibly patent. One stent was removed from the common bile duct using a snare. The bile duct was cannulated with a Metrowire prior to cannulation with an 8.5 mm balloon, 12 mm balloon and 15 mm balloon. Contrast was injected. I personally interpreted the bile duct images. Ductal flow of contrast was adequate. Image quality was adequate. Contrast extended to the entire biliary tree. Opacification of the entire biliary tree was successful. The maximum diameter of the ducts was 17 mm. To discover objects, the biliary tree was swept with an 8.5 mm balloon, 15 mm balloon and basket starting at the upper third of the main bile duct. Nothing was found. The balloons easily traversed the entire duct and crossed the ampulla without resistance. The PD was neither instrumented nor opacified. No samples taken. The stent tip had broken off during initial withdrawal attempt but it and the remaining indwelling stent was completely removed and inspected and is fully accounted for upon inspection. No stent replaced. The final occlusion cholangiogram revealed no persisting fixed or mobile filling defects. Impression: - The major papilla was adjacent to a diverticulum. - One visibly patent stent from the biliary tree was seen in the major papilla. - One stent was removed from the common bile duct. - The biliary tree was swept and nothing was found. Recommendation: - Discharge patient to home (ambulatory). - Patient has a contact number available for emergencies. The signs and symptoms of potential delayed complications were discussed with the patient. Return to normal activities tomorrow. Written discharge instructions were provided to the patient. - Advance diet as tolerated. - Would follow LFTs in 2-3 weeks to enure at baseline. Source of pain unclear , however if persists would consider cross sectional imaging with either CT or MRI. Source of ductal dilation not identified ( no apparent stricture) MD Akash Sesay MD 08/31/2016 10:21:52 AM This report has been signed electronically. Note Initiated On: 08/31/2016 8:35 AM I attest to the content of the Intraoperative Record and orders documented therein, exceptions below
--- NOTE | 2016-08-31 11:00 | Anesthesiology Progress Note ---
Anesthesia Post Op Note Date & Time Aug 31, 2016 at 11:00 Vital Signs Pain Intensity: 0 Vital Signs Past 12 Hours Date Time Temp Pulse Resp B/P (MAP) Pulse Ox O2 Delivery O2 Flow Rate FiO2 08/31/16 10:45 36.3 61 21 126/73 94 Room Air 08/31/16 10:35 60 19 132/67 95 Room Air 08/31/16 10:25 63 21 133/75 100 Mask 10 08/31/16 10:15 60 18 130/60 100 Mask 10 08/31/16 10:06 36.0 61 17 136/77 100 Mask 10 08/31/16 07:59 37.1 82 16 146/72 (96) 98 Room Air Notes Mental Status: alert / awake / arousable, participated in evaluation Pt Amnestic to Procedure: Yes Nausea / Vomiting: adequately controlled Pain: adequately controlled Airway Patency, RR, SpO2: stable & adequate BP & HR: stable & adequate Hydration State: stable & adequate Anesthetic Complications: no major complications apparent
[2016-08-31 11:05] VITALS: BP 129/68; PULSE 69; TEMP 36.7; O2SAT 94
[2016-08-31 11:35] VITALS: BP 137/60; PULSE 66; O2SAT 93
[2016-08-31 12:05] VITALS: BP 145/71; PULSE 70; TEMP 36.6; O2SAT 93
--- NOTE | 2016-08-31 14:43 | DIAGNOSTIC IMAGING REPORT ---
ERCP BILIARY DUCTAL CLINICAL HISTORY: Stent removal COMPARISON STUDY: [id number] FLUOROSCOPY TIME: 330 seconds. A fluoroscopic spot images were acquired. FINDINGS: The first image demonstrates a biliary enteric stent. The stent was removed. There is dilatation of the common hepatic and common bile duct. There is dilatation of the intrahepatic biliary tree. A balloon catheter was placed with the duct and swept through the duct. IMPRESSION: 1. Intra and extrahepatic biliary ductal dilatation 2. Removal of the patient's biliary enteric stent Electronically signed by: Aman De Jesus M.D. 08/31/2016 2:41 PM Dictated Date/Time: 08/31/2016 2:40 PM
== END 2016-08-31 12:15 | disposition home or self-care (01) ==
LOC: C.ACU 07:41
PROVIDERS: ATTEND Internal Medicine Gastroenterology
DX: K80.50 Calculus of bile duct without cholangitis or cholecystitis without obstruction (principal); Z95.0 Presence of cardiac pacemaker; Z87.891 Personal history of nicotine dependence; Z79.82 Long term (current) use of aspirin; Z79.899 Other long term (current) drug therapy

== ENCOUNTER → 2016-11-13 | Outpatient (CLI) | payer OTHER, MEDICARE ==
[~2016-11-13] MED LIST changes: -LACTATED RINGER'S 1000ML 1,000 ML IV SCH
--- NOTE | 2016-11-13 09:59 | DIAGNOSTIC IMAGING REPORT ---
(CHEST) THORAX WITHOUT CT DOSE: 307.92 mGy.cm HISTORY: Pulmonary nodule R91.1 Pulmonary nodule TECHNIQUE: Multiaxial CT images of the chest were performed without contrast. A dose lowering technique was utilized adhering to the principles of ALARA. COMPARISON: 04/19/2016 FINDINGS: Moderate increase in volume of right pleural effusion. Mildly progressive peribronchial thickening in the right lung base moderate cardiomegaly. Mild stable emphysematous change. Left lung is considered clear. Micronodularity of the upper lungs is stable. Interval cholecystectomy. Final image demonstrates air-filled biliary ductal system with a potential polypoid filling defect on the final image. This is potentially artifactual. IMPRESSION: 1. Stable pulmonary nodularity. 2. Interval development of a larger right pleural effusion. 3. Moderately progressive peribronchial thickening right lower lobe. 4. Interval cholecystectomy with a potential filling defect of the common bile duct on the final image. MRCP is suggested as follow-up. The above report was generated using voice recognition software. It may contain grammatical, syntax or spelling errors. Electronically signed by: Gustavo Lamas M.D. 11/13/2016 9:58 AM Dictated Date/Time: 11/13/2016 9:51 AM
== END | disposition home or self-care (01) ==
LOC: C.CTS 09:36
PROVIDERS: ATTEND Physician Assistant
DX: R91.1 Solitary pulmonary nodule (principal)

== ENCOUNTER → 2016-11-15 | Outpatient (CLI) | payer OTHER, MEDICARE ==
--- NOTE | 2016-11-16 06:21 | PAP/PSG TECHNICIAN REPORT ---
[facility] Guest Relations Receptionist Polysomnogram Report Study name: None Report date: 11/16/2016 Study date: 11/15/2016 Referring Physician: Jessica Quick PA-C, PA-C Name: ELENA ZHANG Interpreting Physician: Basil Sanches D.O. Date of : 1940 Guest Relations Receptionist: Elisa Krueger [facility]. Sex: Female Age: 76 Study Type: PSG Weight: 196 lbs Height: 76 years, Height 5' 6" BMI: 31.63 Medications: METOPROLOL 50 MG, FUROSEMIDE 20 MG, VIT D3 5000 UNIT, ATORVASTATIN 10 MG, POTASSIUM CHLORIDE 20 MEQ, LEVOTHYROXINE 88 MCG, ROPINIROLE 1 MG, ACETAMINOPHEN 500 MG, ASPIRIN 81 MG, DOCUSATE 100 MG, PANTOPRAZOLE 40 MG Patient History 76 yr-old female here for a baseline study. She has a history of SOB, waking up gasping or choking, and frequent awakenings. Her [place] scale is 6. The test was started on room air. ETCO2 testing was not utilized during this study. Room 1 Parameters Monitored NPSG: E1-M2, E2-M1, Fp1-M2, Fp2-M1, F3-M2, F4-M2, F4-M1, C3-M2, C4-M2, C4-M1, O1-M2, O2-M2, O2-M1, T3-M2, T4-M1, P3-M2, P4-M1, CHIN1, CHIN2, HR, EKG, Legs, PFLOW, SNOR, FLOW, CFLOW, Tidal Volume, THOR, ABDO, SpO2, PLTH, CPRESS, ETCO2 Wave, ETCO2, pH Sleep Architecture Sleep Stages Time at Lights Off 10:31:12 PM STAGES Time (min.) TST (%) Time at Lights On 5:33:12 AM Wake 192.5 -- Total Recording Time (TRT) 422.00 min. N1 69.5 30 Total Sleep Period (TSP) 396.5 min. N2 141.0 61 Total Sleep Time (TST) 229.5min. N3 0.0 0 Awake Time 192.5 min. REM 19.0 8 Wake after Sleep Onset 167.0 min. Sleep Efficiency (SE) 54 % Sleep Onset Latency (KEVIN) 25.5 min. Number of Stage 1 Shifts None Awakenings 30 Stage Changes 116 Number of REM periods 1 REM 19.0 8 REM Latency 240.5 min. NREM 210.5 92 Body Position Analysis Supine Right Left Side Prone Vertical Total Sleep Time (min.) 32.5 229.0 0.0 229.00 0.0 0.0 Total Sleep Time (%) 0% 100% 0% 100 0% N/A% Total Sleep Time REM (min.) 0.0 19.0 0.0 None 0.0 0.0 Total Sleep Time NREM (min.) 0.5 210.0 0.0 None 0.0 0.0 Intermittent Wake (min.) 32.0 160.5 0.0 None 0.0 0.0 Total Sleep Period (%) 8% None None None None None Arousals Myoclonus (PLM) * Events Count Index Events Count Index Spontaneous 63 16 Events Awake (PLMW) 74 23.1 Respiratory 2 0.8 Events Asleep w/ Arousal (PLMA) 7 1.8 PLM 7 2 Events Asleep w/o Arousal (PLMS) 138 36.1 Snoring 3 1 Total Asleep 145 37.9 Total 75 20 Total 219 31 Respiratory Analysis * CA OA MA CH H RERA Total Count 0 1 0 0 22 1 23 Index 0.0 0.3 0.0 0 5.8 0 6.3 Mean Duration 0.0 11.2 0.0 0.00 16.5 13.9 16.2 Longest Duration 0.0 11.2 0.0 0.00 0.0 13.9 26.0 Respiratory Event Summary Total Supine ~Supine Right Left Prone REM NREM Apneas Count 1 0 1 1 N/A N/A 1 0 Index 0.3 0 0 0.3 N/A N/A 3 0 Hypopneas (4% Desat) Count 22 0 22 22 N/A N/A 14 8 Index 5.8 0.0 6 5.8 N/A N/A 44.2 2.3 Apneas & All Hypopneas Count 23 0 23 23 N/A N/A 15 8 Index 6.0 0 6 6 N/A N/A 47.4 2.3 Respiratory Events (Piper Helper+All Hyp+RERA) Count 23 0 24 24 N/A N/A 15 8 Index 6.3 0 6 6.3 N/A N/A 47.4 2.6 Respiratory Related Arousal Count 2 0 3 3 N/A N/A 0 3 Index 0.8 0 1 1 N/A N/A 0 1 Snoring Analysis Supine Right Left Prone REM NREM Total Snore duration 1.3 min Snores count 0 51 N/A N/A 26 25 51 Snore mean duration 1.5 Sec Snores index 0 13 N/A N/A 82.1 7.1 13.3 TST with snoring (%) 0.5% Desaturation Event Summary: Minimum %SpO2 Event Count Mean/Min/Max Duration(sec.) Desaturation Index % Time In Bed > 90 27 25.5 / 8.3 / 54.8 13.5 28.4 86 - 90 31 19.8 / 7.0 / 36.0 6.2 70.7 81 - 85 0 N/A 0.0 1.0 76 - 80 0 N/A 0.0 0.0 71 - 75 0 N/A 0.0 0.0 66 - 70 0 N/A 0.0 0.0 61 - 65 0 N/A 0.0 0.0 56 - 60 0 N/A 0.0 0.0 51 - 55 0 N/A 0.0 0.0 < 50 0 N/A 0.0 0.0 Total REM NREM Awake <50% 0.0 min. 0.0 min. 0.0 min. 0.0 min. 51 - 60% 0.0 min. 0.0 min. 0.0 min. 0.0 min. 61 - 70% 0.0 min. 0.0 min. 0.0 min. 0.0 min. 71 - 80% 0.0 min. 0.0 min. 0.0 min. 0.0 min. 81 - 90% 302.3 min. 17.3 min. 181.4 min. 103.6 min. 91 - 100% 119.6 min. 1.7 min. 29.1 min. 88.8 min. Average 90 88 89 90 Minimum SpO2 83 83 85 84 Desaturation Event Index 6.0 41.1 3.1 5.6 # Desat. Events below 89% 36 13 9 14 Time(%) with Saturation below 89% 14.3 2.5 8.6 3.2 Time(min.) with Saturation below 89% 60.4 10.7 36.1 13.5 Time (mins) REM (mins) NREM (mins) % of TST SpO2 Below 90% 24 13 N11 55.2 SpO2 Below 88% 7 0 0 6 Heart Rate Analysis Min (bpm) Max (bpm) Average (bpm) Awake 58 94 62 NREM 59 70 60 REM 60 67 61 Overall 59 70 61 Supplemental O2 Values Minimum O2 level: None Value Start Time End Time Guest Relations Receptionist Comments Ms. Zhang slept in the right and supine positions. No cardiac arrhythmias were noted. Some PLMs noted. No bruxism noted. Snoring was noted and scored as a 1 on a scale of 1 through 5. (0=no snoring, 5=snoring loud enough to be heard through a closed door or down the motley way) She did not wake up to use the restroom during the night. Ms. Zhang stated that she slept about the same as usual. The final report will be interpreted and signed by a sleep physician. The completed physician report will then be placed in the patient medical record. Therapy (cm H2O) 0 TIB (min.) 422.0 TST (min.) 229.5 Sleep Onset (min.) 25.5 REM Onset From Sleep (min.) 240.5 Sleep Efficiency % 54 Wakefulness (%) 46 Wakefulness (min.) 192.5 NREM 1 (%) 30 NREM 1 (min.) 69.5 NREM 2 (%) 61 NREM 2 (min.) 141.0 NREM 3 (%) 0 NREM 3 (min.) 0.0 REM (%) 8 REM (min.) 19.0 # Arousals 75 Arousal Index 20 # Snore 51 Snore Index 13.3 AHI 6.0 AHI Supine 0 AHI Non-Supine 6 NREM AHI 2.3 REM AHI 47.4 RDI 6.3 # Obstructive Apnea 1 # Central Apnea 0 # Mixed Apnea 0 # Hypopneas 22 RERAs 1 Total Respiratory Events 24 Time Below SpO2 89% (min.) 46.9 Mean NREM SpO2 (%) 89 Mean REM SpO2 (%) 88 Mean Sleep SpO2 (%) 89 Min NREM SpO2 (%) 85 Min REM SpO2 (%) 83 Position Supine (min.) 32.5 Position Non-supine (min.) 229.0 LM Index Sleep 37.9 LM Index NREM 34.5 LM Index REM 75.8 Mean Heart Rate (bpm) 61 Min Heart Rate (bpm) 59
--- NOTE | 2016-11-20 17:33 | Sleep Study ---
Sleep Study Report Date of Service: 11/15/2014 Sleep Study Report Clinical data: The patient is a 76-year-old female who has a BMI of 31.63. Her symptoms include snoring, fatigue, disturbed nocturnal sleep, and she has a history of restless legs syndrome. Her [place] sleepiness score is 6. The patient has a history of COPD and atrial fibrillation. This was an in-lab overnight polysomnography. Sleep architecture: The total sleep period was 396.5 minutes. The total sleep time was 229.5 minutes. The sleep efficiency was severely reduced to 54 percent. The sleep latency was mildly prolonged to 25.5 minutes. Wake after sleep onset was increased to 167 minutes. The REM latency was prolonged to 240.5 minutes. Sleep consisted of stage N1 30 percent, stage N2 61 percent, stage N3 0 percent , stage REM 8 percent. Arousal data: The patient had a total of 75 arousals including 63 spontaneous arousals, 2 respiratory arousals, 7 PLM arousals, and 3 snoring arousals. The arousal index was 20. PLM data: The total periodic limb movements during sleep was 145 for a PLM index elevated at 37.9. There were 7 arousals associated with limb movements for a PLM arousal index of only 1.8. EKG: The underlying cardiac rhythm appeared to be a pacemaker rhythm. The cardiac rates ranged from 59 to 94 beats per minute. The average heart rate was 61 beats per minute. There were occasional extrasystoles noted. Respiratory data: The patient had a total of 23 respiratory events including 1 obstructive apnea and 22 hypopneas. Hypopneas were scored according to the 4 percent desaturation rule. The mean duration of the apnea was 11.2 seconds. The mean duration of the hypopneas was 16.5 seconds. The apnea-hypopnea index was 6.0. This reflects mild sleep apnea. Oximetry data: The average saturation for the night was 90 percent. The minimum saturation was 83 percent. She had a total of 60.4 minutes with saturations less than 89 percent. Fiberglass Boat Maker comments: The patient slept in the right and supine positions. Some PLMS were noted. No bruxism noted. Snoring was noted and scored as a 1 on a scale of 1 through 5. The patient stated that she slept about the same as usual. Impressions: 1. Obstructive sleep apnea-mild 2. Restless leg syndrome by history 3. Nocturnal hypoxia Comments: The patient had very disturbed nocturnal sleep. She had some difficulty initiating sleep. She had marked difficulty staying asleep. Her sleep was poorly consolidated. She had a modest number of limb movements but with relatively few arousals. Presumably she took her ropinirole prior to the study. Most of the patient's respiratory events occurred during the 1 REM episode. The REM apnea-hypopnea index was elevated at 47.4. She has very mild sleep apnea. It is unclear what relationship this as with her disturbed nocturnal sleep. However with her history of atrial fibrillation and COPD strong consideration would be given to a treatment for the sleep apnea with nasal CPAP therapy. Recommendations: 1. Consideration is given to a trial of treatment with nasal CPAP. This could be accomplished either by an in-lab CPAP titration study or with treatment with auto CPAP. 2. The patient has an elevation of body mass index of 31.63. A weight reduction program is advised. 3. The patient should be advised the appropriate principles of sleep hygiene including having a regular sleep-wake schedule and allowing approximately 7.5-8 hours of sleep per night. Her sleep time during this study was low. 4. It is suggested that the patient have a serum ferritin level checked if it is not been done recently in light of the history of restless leg syndrome and the periodic limb movements seen during the study. 5. If the patient does not wish treatment with nasal CPAP therapy she appears to be a candidate for nocturnal oxygen therapy. If she is not already on oxygen , she would then need to have an overnight pulse oximetry study done to qualify her. Copies To 1: Basil Sanches DO; Jessica Quick PA-C; Lg Rodriguez MD
== END | disposition home or self-care (01) ==
LOC: C.NEUR 20:00
PROVIDERS: ATTEND Physician Assistant
DX: G47.33 Obstructive sleep apnea (adult) (pediatric) (principal); G47.34 Idiopathic sleep related nonobstructive alveolar hypoventilation; G25.81 Restless legs syndrome

== ENCOUNTER → 2017-01-06 | Outpatient (CLI) | payer OTHER, MEDICARE ==
[~2017-01-06] MED LIST changes: +LEVO88TA3 PO; +MULT-1092 PO
--- NOTE | 2017-01-07 06:00 | PAP/PSG TECHNICIAN REPORT ---
[facility] Wellness Health Coach Polysomnogram Report Study name: None Report date: 01/07/2017 Study date: 01/06/2017 Referring Physician: Jessica Quick PA-C, PA-C Name: ELENA ZHANG Interpreting Physician: Basil Sanches D.O. Date of : 1940 Wellness Health Coach: Soraya Shafer [facility]. Sex: Female Age: 76 StudyType: PSG Weight: Height: 76 years, Height BMI: Medications: METOPROLOL 50 MG, FUROSEMIDE 20 MG, VIT D3 5000 UNIT, ATORVASTATIN 10 MG, POTASSIUM CHLORIDE 20 MEQ, LEVOTHYROXINE 88 MCG, ROPINIROLE 1 MG, ACETAMINOPHEN 500 MG, ASPIRIN 81 MG, DOCUSATE 100 MG, PANTOPRAZOLE 40 MG Patient History 76 yr. old female here for a new titration sleep study. Patients PSG was done on 11/15/16 and had an AHI of 6.0. ESS 08/11. Parameters Monitored NPSG: E1-M2, E2-M1, Fp1-M2, Fp2-M1, F3-M2, F4-M2, F4-M1, C3-M2, C4-M2, C4-M1, O1-M2, O2-M2, O2-M1, T3-M2, T4-M1, P3-M2, P4-M1, CHIN1, CHIN2, HR, EKG, Legs, PFLOW, SNOR, FLOW, CFLOW, Tidal Volume, THOR, ABDO, SpO2, PLTH, CPRESS, ETCO2 Wave, ETCO2, pH Sleep Architecture Sleep Stages Time at Lights Off 10:06:53 PM STAGES Time (min.) TST (%) Time at Lights On 5:42:23 AM Wake 176.5 -- Total Recording Time (TRT) 456.00 min. N1 79.0 28 Total Sleep Period (TSP) 430.5 min. N2 125.0 45 Total Sleep Time (TST) 278.5min. N3 34.0 12 Awake Time 177.5 min. REM 40.5 15 Wake after Sleep Onset 152.5 min. Sleep Efficiency (SE) 61 % Sleep Onset Latency (KEVIN) 24.5 min. Number of Stage 1 Shifts None Awakenings 27 Stage Changes 89 Number of REM periods 3 REM 40.5 15 REM Latency 340.0 min. NREM 238.0 85 Body Position Analysis Supine Right Left Side Prone Vertical Total Sleep Time (min.) 350.9 101.1 0.0 101.10 0.0 0.0 Total Sleep Time (%) 64% 36% 0% 36 0% N/A% Total Sleep Time REM (min.) 0.0 40.5 0.0 None 0.0 0.0 Total Sleep Time NREM (min.) 177.4 60.6 0.0 None 0.0 0.0 Intermittent Wake (min.) 173.5 3.0 0.0 None 0.0 0.0 Total Sleep Period (%) 76% None None None None None Arousals Myoclonus (PLM) * Events Count Index Events Count Index Spontaneous 7 2 Events Awake (PLMW) 71 24.1 Respiratory 5 1.3 Events Asleep w/ Arousal (PLMA) 6 1.3 PLM 6 1 Events Asleep w/o Arousal (PLMS) 55 11.8 Snoring 7 2 Total Asleep 61 13.1 Total 25 5 Total 132 17 Respiratory Analysis * CA OA MA CH H RERA Total Count 0 6 0 0 48 0 54 Index 0.0 1.3 0.0 0 10.3 0 11.6 Mean Duration 0.0 14.3 0.0 0.00 22.6 0.0 21.7 Longest Duration 0.0 19.6 0.0 0.00 0.0 0.0 43.8 Respiratory Event Summary Total Supine ~Supine Right Left Prone REM NREM Apneas Count 6 6 0 0 N/A N/A 0 6 Index 1.3 2 0 0.0 N/A N/A 0 2 Hypopneas (4% Desat) Count 48 48 0 0 N/A N/A 0 48 Index 10.3 16.2 0 0.0 N/A N/A 0.0 12.1 Apneas & All Hypopneas Count 54 54 0 0 N/A N/A 0 54 Index 11.6 18 0 0 N/A N/A 0.0 13.6 Respiratory Events (Bark Press Operator+All Hyp+RERA) Count 54 54 0 0 N/A N/A 0 54 Index 11.6 18 0 0.0 N/A N/A 0.0 13.6 Respiratory Related Arousal Count 5 54 0 0 N/A N/A 0 6 Index 1.3 2 0 0 N/A N/A 0 2 Snoring Analysis Supine Right Left Prone REM NREM Total Snore duration 0.8 min Snores count 21 4 N/A N/A 0 25 25 Snore mean duration 1.8 Sec Snores index 7 2 N/A N/A 0.0 6.3 5.4 TST with snoring (%) 0.3% Desaturation Event Summary: Minimum %SpO2 Event Count Mean/Min/Max Duration(sec.) Desaturation Index % Time In Bed > 90 72 28.6 / 13.5 / 57.0 13.6 70.0 86 - 90 22 20.8 / 5.0 / 40.0 9.7 30.0 81 - 85 0 N/A 0.0 0.0 76 - 80 0 N/A 0.0 0.0 71 - 75 0 N/A 0.0 0.0 66 - 70 0 N/A 0.0 0.0 61 - 65 0 N/A 0.0 0.0 56 - 60 0 N/A 0.0 0.0 51 - 55 0 N/A 0.0 0.0 < 50 0 N/A 0.0 0.0 Total REM NREM Awake <50% 0.0 min. 0.0 min. 0.0 min. 0.0 min. 51 - 60% 0.0 min. 0.0 min. 0.0 min. 0.0 min. 61 - 70% 0.0 min. 0.0 min. 0.0 min. 0.0 min. 71 - 80% 0.0 min. 0.0 min. 0.0 min. 0.0 min. 81 - 90% 136.3 min. 13.7 min. 90.7 min. 32.0 min. 91 - 100% 318.3 min. 26.8 min. 147.1 min. 144.4 min. Average 91 91 91 92 Minimum SpO2 86 89 87 86 Desaturation Event Index 9.8 0.0 12.6 9.9 # Desat. Events below 89% 37 N/A 28 9 Time(%) with Saturation below 89% 2.7 0.0 2.2 0.5 Time(min.) with Saturation below 89% 12.3 0.0 9.9 2.4 Time (mins) REM (mins) NREM (mins) % of TST SpO2 Below 90% 47 N/Bárbara N47 14.3 SpO2 Below 88% 12 0 0 0 Heart Rate Analysis Min (bpm) Max (bpm) Average (bpm) Awake 59 127 62 NREM 58 74 61 REM 59 70 60 Overall 58 74 61 Supplemental O2 Values Minimum O2 level: None Value Start Time End Time Wellness Health Coach Comments MS. Zhang slept in the right and supine positions. Cardiac arrhythmia and PLMs noted. No bruxism noted. CPAP was initiated at +4 CMH2O room air and up-titrated to a level of +10 CMH2O Cflex 1, which nearly eliminated all respiratory events and snoring. A Medium F10 ResMed full face mask, was used during titration. MS. Zhang did not wake to use the restroom during the night. MS. Zhang stated, " I don't think I can wear that every night". The final report will be interpreted and signed by a sleep physician. The completed physician report will then be placed in the patient medical record. Therapy Event: Therapy (cm H20) 4 5 6 7 8 9 10 Total Time at Pressure (min.) 49.0 17.6 85.1 65.4 17.1 110.4 110.3 TST at Pressure (min.) 20.6 16.1 30.3 44.7 15.6 48.4 102.8 # Periods 1 1 1 1 1 1 1 Sleep Onset (min.) 24.4 0.0 0.0 0.6 0.0 0.0 0.0 REM Onset (min.) N/A N/A N/A N/A N/A N/A 19.8 Sleep Efficiency % 42 91 35 68 91 43 93 Wakefulness (%) 57.9 8.5 64.5 31.6 8.8 56.2 6.8 Wakefulness (min.) 28.4 1.5 54.9 20.6 1.5 62.0 7.5 NREM 1 (%) 20.4 5.7 19.4 39.8 8.8 17.2 4.5 NREM 1 (min.) 10.0 1.0 16.5 26.0 1.5 19.0 5.0 NREM 2 (%) 21.7 85.8 16.2 28.6 82.5 26.6 21.1 NREM 2 (min.) 10.6 15.1 13.8 18.7 14.1 29.4 23.3 NREM 3 (%) 0.0 0.0 0.0 0.0 0.0 0.0 30.8 NREM 3 (min.) 0.0 0.0 0.0 0.0 0.0 0.0 34.0 REM (%) 0.0 0.0 0.0 0.0 0.0 0.0 36.7 REM (min.) 0.0 0.0 0.0 0.0 0.0 0.0 40.5 # Arousals 2 1 5 6 1 8 2 Arousal Index 5.8 3.7 9.9 8.0 3.8 9.9 1.2 # Snore 0 0 3 0 6 11 5 Snore Index 0.0 0.0 5.9 0.0 23.0 13.6 2.9 AHI 11.6 14.9 25.8 25.5 19.2 11.2 0.0 AHI Supine 11.6 14.9 25.8 25.5 19.2 11.2 0.0 AHI Non-Supine N/A N/A N/A N/A N/A N/A 0.0 NREM AHI 11.6 14.9 25.8 25.5 19.2 11.2 0.0 REM AHI N/A N/A N/A N/A N/A N/A 0.0 RDI 11.6 14.9 25.8 25.5 19.2 11.2 0.0 # Obstructive 1 0 2 3 0 0 0 # Central Ap 0 0 0 0 0 0 0 # Mixed 0 0 0 0 0 0 0 # Hypopneas 3 4 11 16 5 9 0 RERAS 0 0 0 0 0 0 0 Total Respiratory Events 4 4 13 19 5 9 0 Time Below SpO2 89.00% (min.) 0.2 1.3 2.8 1.6 2.3 1.7 0.0 Mean NREM SpO2 (%) 91 90 91 91 90 91 91 Mean REM SpO2 (%) N/A N/A N/A N/A N/A N/A 91 Mean Sleep SpO2 (%) 91 90 91 91 90 91 91 Min NREM SpO2 (%) 88 87 87 88 87 87 89 Min REM SpO2 (%) N/A N/A N/A N/A N/A N/A 89 Position Supine (min.) 20.6 16.1 30.3 44.7 15.6 48.4 1.7 Position Non-supine (min.) 0.0 0.0 0.0 0.0 0.0 0.0 101.1 LM Index Sleep 23.3 26.0 5.9 12.1 11.5 17.4 9.9 LM Index NREM 23.3 26.0 5.9 12.1 11.5 17.4 3.9 LM Index REM N/A N/A N/A N/A N/A N/A 19.3 Mean Heart Rate (bpm) 62 62 61 61 61 61 61 Min Heart Rate (bpm) 59 59 59 58 59 58 59
--- NOTE | 2017-01-09 19:39 | Sleep Study ---
Sleep Study Report Date of Service: 01/06/2017 Sleep Study Report Clinical data: The patient is a 76-year-old female with a history of snoring, fatigue, and disturbed nocturnal sleep. A diagnostic sleep study was done 11/15/2016 showing mild apnea an apnea-hypopnea index of 6. Oxygen saturations were as low as 83 percent. She does have a history of atrial fibrillation and COPD. She is referred for a CPAP titration study. This was an in-lab study. Sleep architecture: The total sleep period was 430.5 minutes. The total sleep time was 278.5 minutes. The sleep efficiency was moderately reduced to 61 percent. Sleep latency was 24.5 minutes. Wake after sleep onset was elevated at 152.5 minutes. The REM latency was severely prolonged at 340 minutes. Sleep consisted of stage N1 28 percent, stage N2 45 percent, stage N3 12 percent , stage REM 15 percent. Arousal data: The patient had a total of 25 arousals including 7 spontaneous arousals, 5 respiratory arousals, 6 PLM arousals, and 7 snoring arousals. The arousal index is 5. PLM data: Patient had a total of 61 periodic limb movements of sleep for a PLM index of 13.1. There were 6 arousals associated with limb movements for a PLM arousal index of 1.3. EKG: The underlying rhythm appeared to be a pacer rhythm. The background rhythm appeared to be atrial fibrillation. The cardiac rates 58-74 beats per minute with an average of 61 beats per minute. Respiratory data: The patient's respiratory events were treated with nasal CPAP. She had a total of 54 respiratory events including 6 obstructive apneas and 48 hypopneas. The longest apnea was 19.6 seconds. The mean duration of the hypopneas was 22.6 seconds. The apnea-hypopnea index was 11.6. At the final pressure of 10 centimeters her apnea-hypopnea index was 0. She did have 103 minutes of sleep at the final pressure. Oximetry data: The average saturation for the night was 91 percent. The minimum saturation was 86 percent. She had 12.3 minutes with saturations less than 89 percent. Adon comments: The patient slept on the right and supine positions. Cardiac arrhythmia and PLMS were noted. No bruxism noted. CPAP was initiated at 4 centimeters and up titrated to a level of 10 centimeters with C flex 1 a medium F10 ResMed med fullface mask was used during titration. She did not awaken to use the restroom during the night. Impressions: 1. Obstructive sleep apnea-resolved with nasal CPAP at 10 centimeters 2. Cardiac arrhythmia-pacemaker rhythm with underlying atrial fibrillation Comments: The patient had a significant decrease in sleep efficiency. Her sleep to not get well consolidated until the final pressure of 10 centimeters. Also at that time she changed position from supine to her right side. She was well consolidated for the remainder of the night at the final pressure. The number of limb movements were not as abnormal as during her diagnostic study. Oxygenation was improved compared with the diagnostic study. The patient was not comfortable with the mask. Recommendations: 1. It is suggested that the patient be started on nasal CPAP at 10 centimeters with C flex 1. 2. Mask of choice would be suggested. She did not feel comfortable with the mask used during the study. 3. The patient should be advised to avoid sleeping in the supine position. She clearly had events mainly when she was supine. 4. The patient should be seen back between day 31 day 90 after she starts with nasal CPAP therapy. Copies To 1: Basil Sanches DO; Jessica Quick PA-C; Lg Rodriguez MD
== END | disposition home or self-care (01) ==
LOC: C.NEUR 20:00
PROVIDERS: ATTEND Physician Assistant
DX: G47.30 Sleep apnea, unspecified (principal); J44.9 Chronic obstructive pulmonary disease, unspecified; G25.81 Restless legs syndrome; J90 Pleural effusion, not elsewhere classified

== ENCOUNTER → 2017-01-15 | Outpatient (CLI) | payer OTHER, MEDICARE ==
--- NOTE | 2017-01-15 10:41 | DIAGNOSTIC IMAGING REPORT ---
CHEST 2 VIEWS ROUTINE HISTORY: J90 Pleural effusion, [id number] COMPARISON: Chest 08/27/2016. FINDINGS: Small right pleural effusion has decreased in size. Right basilar densities persist. The upper lung zones are clear. No pneumothorax. No left pleural effusion. Mild diffuse interstitial thickening which is likely chronic. The heart is stable in size. Left-sided dual-chamber pacemaker. IMPRESSION: Decrease in size in the small right pleural effusion. No pneumothorax. Electronically signed by: Nolan Strange M.D. 01/15/2017 10:40 AM Dictated Date/Time: 01/15/2017 10:38 AM
[2017-01-15 12:24] LABS: HEMATOCRIT 44.2 % (37-47); MEAN CELL VOLUME 96.9 fL (80-100); MEAN CORPUSCULAR HEMOGLOBIN 31.4 pg (25-34); MEAN CORPUSCULAR HGB CONC 32.4 g/dl (32-36); MEAN PLATELET VOLUME 9.8 fL (7.4-10.4); PLATELET COUNT 305 K/uL (130-400); RED BLOOD COUNT 4.56 M/uL (4.2-5.4); WHITE BLOOD COUNT 7.89 K/uL (4.8-10.8)
[2017-01-15 13:05] LABS: ALT/SGPT 17 U/L (12-78); AST/SGOT 14 U/L (15-37); BLOOD UREA NITROGEN 17 mg/dl (7-18); BUN/CREATININE RATIO 13.5 (10-20); CALCIUM 9.3 mg/dl (8.5-10.1); CARBON DIOXIDE 27 mmol/L (21-32); CHLORIDE 104 mmol/L (98-107); CREATININE 1.27 mg/dl (0.60-1.20); GLUCOSE 108 mg/dl (70-99); POTASSIUM 3.6 mmol/L (3.5-5.1); SODIUM 140 mmol/L (136-145)
[2017-01-15 13:14] LABS: ALB/GLOB RATIO 0.9 (0.9-2); ALKALINE PHOSPHATASE 142 U/L (45-117); FERRITIN 333.7 ng/ml (8.0-388.0)
== END | disposition home or self-care (01) ==
LOC: C.RAD1850 10:14
PROVIDERS: ATTEND Physician Assistant
DX: J90 Pleural effusion, not elsewhere classified (principal); E03.9 Hypothyroidism, unspecified; R58 Hemorrhage, not elsewhere classified; I10 Essential (primary) hypertension

== ENCOUNTER 2017-01-16 06:27 | Day surgery (SDC) | payer OTHER, MEDICARE ==
[2017-01-02 12:07] LABS: BASO % 1.2 %; BASO ABS # 0.09 K/uL (0-0.2); COMPLETE YES; EOS % 4.5 %; HEMATOCRIT 45.1 % (37-47); IG% 0.3 %; LYMPH % 18.5 %; LYMPH ABS # 1.35 K/uL (1.2-3.4); MEAN CELL VOLUME 95.8 fL (80-100); MEAN CORPUSCULAR HEMOGLOBIN 30.6 pg (25-34); MEAN CORPUSCULAR HGB CONC 31.9 g/dl (32-36); MEAN PLATELET VOLUME 9.9 fL (7.4-10.4); MONO % 8.5 %; PLATELET COUNT 309 K/uL (130-400); RED BLOOD COUNT 4.71 M/uL (4.2-5.4); WHITE BLOOD COUNT 7.29 K/uL (4.8-10.8)
[2017-01-02 12:19] LABS: PROTHROMBIN TIME (PATIENT) 10.3 SECONDS (9.0-12.0)
[2017-01-02 12:32] LABS: BLOOD UREA NITROGEN 16 mg/dl (7-18); BUN/CREATININE RATIO 13.3 (10-20); CALCIUM 9.5 mg/dl (8.5-10.1); CARBON DIOXIDE 29 mmol/L (21-32); CHLORIDE 104 mmol/L (98-107); CREATININE 1.17 mg/dl (0.60-1.20); GLUCOSE 97 mg/dl (70-99); POTASSIUM 3.4 mmol/L (3.5-5.1); SODIUM 142 mmol/L (136-145)
[~2017-01-16] VITALS: Ht 167.6 cm; Wt 86.3 kg
[2017-01-16] VITALS (14 sets, daily range): BP systolic 110–144; BP diastolic 65–90; PULSE 62–74; TEMP 36–37; O2SAT 67–100; Ht 167.6 cm; Wt 86.3 kg
[~2017-01-16 06:27] MED LIST changes: -LEVO88TA3 PO; -MULT-1092 PO
--- NOTE | 2017-01-16 07:37 | History and Physical ---
History & Physical Date of Service Jan 16, 2017. History & Physical Reason for visit: Bronchoscopy History of present illness: Patient is a 68-year-old female presenting to the hospital today for bronchoscopy evaluation for concerns of moderate progressive peribronchial thickening in the right lower lobe. The patient recently was evaluated by chest her LEONARDO Brown as an outpatient. Patient does have history of hyperlipidemia, hypertension, hypothyroid status post thyroidectomy, atrial fibrillation/flutter on anticoagulation, history of tachy-juli syndrome, post pacemaker in 2010, vitamin-D deficiency, diastolic dysfunction, Graves disease, cholelithiasis, CHF, retroperitoneal hematoma, and bilateral pneumonia. She is a former smoker, and has a 50 pack year history. She quit in 2016. She does history of significant secondhand exposure as well. The patient also has history of diagnosis of very mild sleep apnea with AHI of 6 and associated nocturnal hypoxia spending 60.4 minutes with oxygen saturation less than 89%. Patient had a chest CT completed on 11/13/2016 which showed nodular changes that were stable from previous exam in April 2016. She was also noted to have a right-sided pleural effusion and peribronchial thickening as noted above. Recently, the patient had been it is sclerae in sync a persistent dry cough. She uses Spiriva without significant improvement. Past medical history: As noted in HPI Past surgical history: Cataract surgery, pacemaker placement, thyroidectomy Social history: Retired, , no alcohol use, smoking history as noted in HPI Allergies: No known drug allergy Current medications: Metoprolol 50 mg once daily For a semi 20 mg once daily Vitamin D3 Potassium 20 milliequivalents once daily Levothyroxine 88 micrograms once daily Ropinirole 1 mg daily I's C diminished 500 mg p.r.n. pain Aspirin 81 mg daily Docusate 100 mg twice daily Pantoprazole 40 mg daily Physical exam: General: Patient is awake, alert, cooperative, and in no acute distress. Well developed. Well-nourished. HEENT: Normocephalic and atraumatic. Eyes are anicteric and non-erythematous. EOMI c PERRLA. Hearing intact and without difficulty. Nose appears normal and without drainage. Trachea midline. Thyroid appears normal, and neck is supple. Lungs: No respiratory distress. No accessory muscle use. Heart: Regular rate and rhythm. Extremities: No cyanosis. Freely moving extremities. Neuro: Alert. CN II-XII grossly intact. Sensation and motor function grossly intact. Assessment and plan: Peribronchial thickening, right-sided pleural effusion, and dry cough The plan for bronchoscopic evaluation with BAL of right lower lobe today.
--- NOTE | 2017-01-16 07:46 | DIAGNOSTIC IMAGING REPORT ---
EFFUSION-CHEST/MEDIASTINUM CLINICAL HISTORY: 76 years-old Female presenting with RIGHT PLEURAL EFFUSION. TECHNIQUE: Real-time grayscale ultrasound imaging of the chest was performed. COMPARISON: Chest x-ray from 01/15/2017. FINDINGS: Small right pleural effusion. Calculated volume measures 60 mL. This appears to be simple. Left pleural cavity does not demonstrate pleural fluid. IMPRESSION: 1. Small simple appearing right pleural effusion. Due to the diminutive size, this was not marked for thoracentesis. Electronically signed by: Grey London M.D. 01/16/2017 7:44 AM Dictated Date/Time: 01/16/2017 7:43 AM
[2017-01-16] MEDS ORDERED: LEVO88TA3 PO (09:01)
[2017-01-16] MEDS ORDERED: MULT-1092 PO (09:01)
--- NOTE | 2017-01-16 09:36 | History & Physical Bridge Note ---
H&P Re-Evaluation Bridge Note: I have examined the patient, reviewed the History & Physical and in the interval since the performance of the History & Physical I have noted the following changes of clinical significance: No changes noted
--- NOTE | 2017-01-16 09:37 | Procedure Note ---
Pre-Mod Sedation Assessment General Date of Moderate Sedation: Jan 16, 2017. Vital Signs: Vital Signs Past 12 Hours Date Time Temp Pulse Resp B/P (MAP) Pulse Ox O2 Delivery O2 Flow Rate FiO2 01/16/17 09:04 37 70 20 122/69 (86) 97 Room Air Review Cardiovascular: regular rate, rhythm, no edema, no gallop, no JVD, no murmur Abdomen: normal bowel sounds, non tender, soft, no organomegaly, no pulsatile mass Lungs: chest non-tender, lungs clear, normal breath sounds, no respiratory distress Airway Class: II Pre-Sedation Airway Assessment Oral Cavity: Dentures Able to Visualize Vocal Cords: Yes Short Thick Neck: Yes Hx of Sleep Apnea: No Smoking Status: Former Smoker Mallampati Classification: Class II ASA Classification: Class II Procedure Planning Contraindications-for Mod Sed: None Yes Notes The planned sedation has been discussed with the patient and consent obtained. I have identified the patient, determined the appropriateness of sedation and have assessed the patient immediately prior to the procedure. All medicine(s) and interventions are by my order.
--- NOTE | 2017-01-16 10:28 | Bronchoscopy Procedure Note ---
Bronchoscopy Procedure Note Procedure: Bronchoscopy, conscious sedation, bronchial lavage right upper lobe and right lower lobe Consent: Obtained through the patient placed into the chart Pre-procedural diagnosis: Chronic cough Post-procedural diagnosis: Chronic cough Start time: 1005 End time: 1021 Total time: 16 minutes Analgesia: 2% liquid lidocaine: Via nebulizer 4% gel lidocaine: Via right naris 2% liquid lidocaine: Via bronchoscopy Sedation: Versed IV: 2mg Fentanyl IV: 50 g Procedure: The Olympus video bronchoscope was used for this procedure and passed down through the right naris Right naris/posterior naris/posterior oropharynx: Anatomically within normal limits Glottis: Small papilloma appreciated close to the anterior commissures Vocal cords: Proper abduction and abduction, anatomically within normal limits Subglottis/trachea/Dottie: Anatomically within normal limits Right bronchial tree: Right mainstem bronchus: Anatomically within normal limits Right upper lobe: Anatomically within normal limits, diffuse mucus plugging appreciated RB3 subsegment Bronchus intermedius: Anatomically within normal limits Right middle lobe: Anatomically within normal limits Right lower lobe: Anatomically within normal limits, small papilloma appreciated the lateral posterior takeoff to the basal pyramids Findings: No significant findings noted Left bronchial tree: Left mainstem bronchus: Anatomically within normal limits Left upper lobe: Anatomically within normal limits Lingula: Anatomically within normal limits Left lower lobe: Anatomically within normal limits Findings: No significant findings noted Bronchial alveolar lavage: Right upper lobe and right lower lobe EBL: None Complications: None Follow-up: [facility]SU
[2017-01-16] MEDS ORDERED: NURSING VERBAL MED ORDER ONE (10:45)
[2017-01-16] MEDS ORDERED: FENTANYL CITRATE INJ 50 MCG/1 ML 2 ML VIAL IV ONE (11:00)
[2017-01-16] MEDS ORDERED: MIDAZOLAM HCL 5 MG/ML 1 ML VIAL IV ONE (11:00)
--- NOTE | 2017-01-16 11:52 | Discharge Instructions ---
Discharge Instructions Date of Service Jan 16, 2017. Admission Reason for Admission: Right Pleural Effusion, cough, RLL peribronchial thickening Discharge Discharge Diagnosis / Problem: Right Pleural Effusion, cough, RLL peribronchial thickening Discharge Goals Goal(s): Diagnostic testing Activity Recommendations Activity Limitations: resume your previous activity . Instructions / Follow-Up Instructions / Follow-Up Follow up with [facility] Current Hospital Diet Patient's current hospital diet: Discharge Diet Recommended Diet: Regular Diet Pending Studies Studies pending at discharge: no Medical Emergencies . Who to Call and When: Medical Emergencies: If at any time you feel your situation is an emergency, please call 911 immediately. . Non-Emergent Contact Non-Emergency issues call your: Primary Care Provider . . "Provider Documentation" section prepared by Mariluz Shannon. . VTE Core Measure Inpt VTE Proph given/why not?: Other Anticoagulation (Aspirin as previously Rxd )
== END 2017-01-16 13:10 | disposition home or self-care (01) ==
LOC: C.ACU 06:27 → EDSTATUS 07:00 → C.ACU 13:10
PROVIDERS: ATTEND Internal Medicine Critical Care Medicine
DX: R05 Cough (principal); I10 Essential (primary) hypertension; Z79.01 Long term (current) use of anticoagulants; Z79.899 Other long term (current) drug therapy; E03.9 Hypothyroidism, unspecified; J44.9 Chronic obstructive pulmonary disease, unspecified; G47.30 Sleep apnea, unspecified; Z87.891 Personal history of nicotine dependence; Z79.82 Long term (current) use of aspirin

== ENCOUNTER 2017-06-27 10:14 | Emergency (ER) | payer OTHER, MEDICARE ==
[~2017-06-27] VITALS: Ht 167.6 cm; Wt 89.6 kg
[~2017-06-27 10:14] MED LIST changes: -LEVO75TA5 PO; +LEVO88TA3 PO; +MULT-1092 PO
[2017-06-27 10:17] VITALS: TEMP 36.5; Ht 167.6 cm; Wt 89.6 kg
[2017-06-27] MEDS ORDERED: SODIUM CHLORIDE 0.9% 1000ML 1,000 ML IV STA (10:34)
[2017-06-27] MEDS ORDERED: LEVA45AE INH (10:38)
[2017-06-27] MEDS ORDERED: LEVO88TA PO (10:38)
[2017-06-27] MEDS ORDERED: GLYC1AER INH (10:38)
--- NOTE | 2017-06-27 10:50 | DIAGNOSTIC IMAGING REPORT ---
CHEST ONE VIEW PORTABLE CLINICAL HISTORY: Weakness, dizziness, weakness. COMPARISON STUDY: 01/15/2017 FINDINGS: The heart is enlarged. There is a left subclavian dual-chamber central venous pacemaker present. There is no lobar consolidation. There is small right pleural effusion. There is stable interstitial thickening.[ IMPRESSION: Persistent cardiomegaly, small right pleural effusion, and mild interstitial thickening. No acute parenchymal consolidation. Electronically signed by: Aman De Jesus M.D. 06/27/2017 10:49 AM Dictated Date/Time: 06/27/2017 10:47 AM
--- NOTE | 2017-06-27 10:51 | DIAGNOSTIC IMAGING REPORT ---
CT HEAD WITHOUT CONTRAST (CT) CLINICAL HISTORY: Dizziness, weakness. COMPARISON STUDY: No previous studies for comparison. TECHNIQUE: Axial CT of the brain is performed from the vertex to the skull base. IV contrast was not administered for this examination. A dose lowering technique was utilized adhering to the principles of ALARA. CT DOSE: 537.48 mGy.cm FINDINGS: No intra or extra-axial mass lesions are visualized. There is no CT evidence of acute cortical infarction. There is no evidence of midline shift. There is no acute hemorrhage. No calvarial fractures are visualized. There are minor white matter hypodensities likely on a small vessel basis. There is no evidence of pathologic ventricular dilatation. There is no evidence of acute sinusitis IMPRESSION: No acute intracranial findings Electronically signed by: Aman De Jesus M.D. 06/27/2017 10:50 AM Dictated Date/Time: 06/27/2017 10:49 AM
[2017-06-27 11:10] LABS: BASO % 0.9 %; BASO ABS # 0.06 K/uL (0-0.2); EOS ABS # 0.21 K/uL (0-0.5); HEMATOCRIT 41.7 % (37-47); IG# 0.01 K/uL (0.00-0.02); LYMPH ABS # 1.54 K/uL (1.2-3.4); MEAN CELL VOLUME 92.9 fL (80-100); MEAN CORPUSCULAR HEMOGLOBIN 31.2 pg (25-34); MEAN CORPUSCULAR HGB CONC 33.6 g/dl (32-36); MEAN PLATELET VOLUME 8.9 fL (7.4-10.4); MONO % 7.2 %; NEUT % 66.8 %; NEUT ABS # 4.67 K/uL (1.4-6.5); PLATELET COUNT 270 K/uL (130-400); RED CELL DISTRIBUTION WIDTH CV 12.8 % (11.5-14.5); RED CELL DISTRIBUTION WIDTH SD 43.3 fL (36.4-46.3); WHITE BLOOD COUNT 6.99 K/uL (4.8-10.8)
[2017-06-27 11:19] LABS: PTT PATIENT 25.8 SECONDS (21.0-31.0)
[2017-06-27] MEDS ORDERED: MECLIZINE HCL 25 MG TAB PO STA (11:22)
[2017-06-27 11:29] VITALS: O2SAT 93
[2017-06-27 11:31] LABS: ALBUMIN 3.5 gm/dl (3.4-5.0); ALT/SGPT 16 U/L (12-78); AST/SGOT 16 U/L (15-37); BLOOD UREA NITROGEN 11 mg/dl (7-18); CALCIUM 9.1 mg/dl (8.5-10.1); CARBON DIOXIDE 27 mmol/L (21-32); CREATININE 1.25 mg/dl (0.60-1.20); GLUCOSE 100 mg/dl (70-99); POTASSIUM 3.6 mmol/L (3.5-5.1); SODIUM 137 mmol/L (136-145)
[2017-06-27 11:42] LABS: ALKALINE PHOSPHATASE 129 U/L (45-117)
[2017-06-27 13:20] VITALS: BP 129/74; PULSE 78; O2SAT 94
--- NOTE | 2017-06-27 16:39 | EMERGENCY ROOM VISIT NOTE ---
History Report prepared by Ayan: Bernardo Barnes Under the Supervision of: Dr. Luis Moses D.O. First contact with patient: 10:22 Chief Complaint: DIZZY Stated Complaint: dizzy, feeling weak History of Present Illness The patient is a 76 year old female who presents to the Emergency Room with complaints of intermittent lightheadedness beginning six days ago. She also complains of generalized weakness. The patient notes that she has occasional pain in her left ear. Her lightheadedness is worsened with turning her head, or changing position. She ambulates at home normally, but uses a walker at night and in the morning. Pt denies headache, change in vision, fevers, chest pain, new shortness of breath, nausea, vomiting, diarrhea, pain with urination, numbness, and melena. She notes that she has baseline numbness of her right leg. The patient has a pacemaker in place. She has been eating and drinking normally recently. She denies new medications, or recent medication changes. Source of History: patient Onset: Six days ago Quality: other (Lightheadedness) Timing: intermittent Modifying Factors (Worsening): other (changing position, turning head) Associated Symptoms: + weakness (generalized), No LOC, No fevers, No headache, No chest pain, No SOB, No nausea, No vomiting, No melena, No diarrhea , No urinary symptoms Note: Positive: intermittent left ear pain. Review of Systems See HPI for pertinent positives & negatives. A total of 10 systems reviewed and were otherwise negative. Past Medical & Surgical Medical Problems: (1) Common bile duct (CBD) obstruction (2) GI bleed (3) Hypertension (4) Pacemaker (5) Pulmonary edema (6) Restless leg syndrome (7) Retroperitoneal bleed Family History No pertinent family history stated. Social History Smoking Status: Former Smoker Alcohol Use: occasionally Drug Use: none Marital Status: Housing Status: lives alone Occupation Status: retired Current/Historical Medications Scheduled Aspirin (Aspirin Ec), 81 MG PO QAM Cholecalciferol (D 5000), 5,000 INTERUNIT PO DAILY Furosemide (Lasix), 40 MG PO QAM Glycopyrrolate-Formoterol Fuma (Bevespi Aerosphere 9-4.8 Mcg/Act), 2 PUFFS INH BID Levothyroxine Sodium (Synthroid), 88 MCG PO DAILY Metoprolol Succinate (Toprol Xl), 50 MG PO QAM Pantoprazole (Protonix), 40 MG PO QAM Potassium Chloride (Micro-K Ext Rel), 20 MEQ PO QAM Ropinirole (Requip), 1 MG PO HS Scheduled PRN Levalbuterol Tartrate (Levalbuterol Tartrate Hfa), 2 PUFFS INH Q4 PRN for Wheezing Allergies Coded Allergies: No Known Allergies (Unverified , 06/27/17) Physical Exam Vital Signs Date Time Temp Pulse Resp B/P (MAP) Pulse Ox O2 Delivery O2 Flow Rate FiO2 06/27/17 13:20 78 20 129/74 94 06/27/17 11:29 80 18 124/77 93 Room Air 06/27/17 11:29 93 Room Air 06/27/17 11:09 89 06/27/17 11:05 77 135/82 72 151/83 85 152/90 06/27/17 10:17 36.5 77 18 156/90 95 Room Air Physical Exam GENERAL: Sitting up in bed, alert, well appearing, well nourished, no distress, non-toxic, ambulating through room. EYE EXAM: normal conjunctiva. PERRL and EOM's intact. OROPHARYNX: no exudate, no erythema, lips, buccal mucosa, and tongue normal and mucous membranes are moist NECK: supple, no nuchal rigidity, no adenopathy, non-tender LUNGS: Clear to auscultation. Normal chest wall mechanics HEART: no murmurs, S1 normal and S2 normal ABDOMEN: abdomen soft, non-tender, normo-active bowel sounds, no masses, no rebound or guarding. BACK: Back is symmetrical on inspection and there is no deformity, no midline tenderness, no CVA tenderness. SKIN: no rashes and no bruising UPPER EXTREMITIES: upper extremities are grossly normal. LOWER EXTREMITIES: No pitting edema. NEURO EXAM: Normal sensorium, cranial nerves II-XII intact, normal speech, no weakness of arms, no weakness of legs. No drift. Finger to nose intact. Gross sensation intact. Rapid alternating movements of the upper extremities intact. Medical Decision & Procedures ER Provider Diagnostic Interpretation: Radiology results as stated below per my review and the radiologist's interpretation: CT HEAD WITHOUT CONTRAST (CT) FINDINGS: No intra or extra-axial mass lesions are visualized. There is no CT evidence of acute cortical infarction. There is no evidence of midline shift. There is no acute hemorrhage. No calvarial fractures are visualized. There are minor white matter hypodensities likely on a small vessel basis. There is no evidence of pathologic ventricular dilatation. There is no evidence of acute sinusitis IMPRESSION: No acute intracranial findings Electronically signed by: Aman De Jesus M.D. 06/27/2017 10:50 AM CHEST ONE VIEW PORTABLE FINDINGS: The heart is enlarged. There is a left subclavian dual-chamber central venous pacemaker present. There is no lobar consolidation. There is small right pleural effusion. There is stable interstitial thickening.[ IMPRESSION: Persistent cardiomegaly, small right pleural effusion, and mild interstitial thickening. No acute parenchymal consolidation. Electronically signed by: Aman De Jesus M.D. 06/27/2017 10:49 AM Laboratory Results 06/27/17 11:00 Red Blood Count 4.49, Mean Corpuscular Volume 92.9, Mean Corpuscular Hemoglobin 31.2, Mean Corpuscular Hemoglobin Concent 33.6, Mean Platelet Volume 8.9, Neutrophils (%) (Auto) 66.8, Lymphocytes (%) (Auto) 22.0, Monocytes (%) (Auto) 7.2, Eosinophils (%) (Auto) 3.0, Basophils (%) (Auto) 0.9, Neutrophils # (Auto) 4.67, Lymphocytes # (Auto) 1.54, Monocytes # (Auto) 0.50, Eosinophils # (Auto) 0.21, Basophils # (Auto) 0.06 06/27/17 11:00 Test 06/27/17 11:00 White Blood Count 6.99 K/uL (4.8-10.8) Red Blood Count 4.49 M/uL (4.2-5.4) Hemoglobin 14.0 g/dL (12.0-16.0) Hematocrit 41.7 % (37-47) Mean Corpuscular Volume 92.9 fL (80-100) Mean Corpuscular Hemoglobin 31.2 pg (25-34) Mean Corpuscular Hemoglobin Concent 33.6 g/dl (32-36) Platelet Count 270 K/uL (130-400) Mean Platelet Volume 8.9 fL (7.4-10.4) Neutrophils (%) (Auto) 66.8 % Lymphocytes (%) (Auto) 22.0 % Monocytes (%) (Auto) 7.2 % Eosinophils (%) (Auto) 3.0 % Basophils (%) (Auto) 0.9 % Neutrophils # (Auto) 4.67 K/uL (1.4-6.5) Lymphocytes # (Auto) 1.54 K/uL (1.2-3.4) Monocytes # (Auto) 0.50 K/uL (0.11-0.59) Eosinophils # (Auto) 0.21 K/uL (0-0.5) Basophils # (Auto) 0.06 K/uL (0-0.2) RDW Standard Deviation 43.3 fL (36.4-46.3) RDW Coefficient of Variation 12.8 % (11.5-14.5) Immature Granulocyte % (Auto) 0.1 % Immature Granulocyte # (Auto) 0.01 K/uL (0.00-0.02) Prothrombin Time 10.1 SECONDS (9.0-12.0) Prothromb Time International Ratio 1.0 (0.9-1.1) Activated Partial Thromboplast Time 25.8 SECONDS (21.0-31.0) Partial Thromboplastin Ratio 1.0 Anion Gap 8.0 mmol/L (3-11) Est Creatinine Clear Calc Drug Dose 41.8 ml/min Estimated GFR () 47.7 Estimated GFR (Non- 41.2 BUN/Creatinine Ratio 8.5 (10-20) Calcium Level 9.1 mg/dl (8.5-10.1) Magnesium Level 2.2 mg/dl (1.8-2.4) Total Bilirubin 0.8 mg/dl (0.2-1) Direct Bilirubin 0.2 mg/dl (0-0.2) Aspartate Amino Transf (AST/SGOT) 16 U/L (15-37) Alanine Aminotransferase (ALT/SGPT) 16 U/L (12-78) Alkaline Phosphatase 129 U/L (45-117) Troponin I < 0.015 ng/ml (0-0.045) Total Protein 8.0 gm/dl (6.4-8.2) Albumin 3.5 gm/dl (3.4-5.0) Thyroid Stimulating Hormone (TSH) 3.440 uIu/ml (0.300-4.500) Laboratory results per my review. Medications Administered Medications (Trade) Dose Ordered Sig/Angeles Route Start Time Stop Time Status Last Admin Dose Admin Sodium Chloride 1,000 ml @ 999 mls/hr Q1H1M STAT IV 06/27/17 10:34 06/27/17 11:34 DC 06/27/17 10:34 999 MLS/HR Meclizine HCl (Antivert Tab) 25 mg NOW STAT PO 06/27/17 11:22 06/27/17 11:23 DC 06/27/17 11:29 25 MG ECG Per My Interpretation Indication: other (dizziness) Rate (beats per minute): 64 Rhythm: other (Ventricular paced rhythm) Findings: T-wave inversion (Lateral), left axis deviation Comparison ECG Date: no prior available ED Course ED COURSE: Vital signs were reviewed and showed hypertension. The patients medical record was reviewed The above diagnostic studies were performed and reviewed. ED treatments and interventions as stated above. 1026: The patient was evaluated in room A11B. A complete history and physical examination was performed. 1034: Ordered Sodium Chloride 1000 ml @ 999 mls/hr IV. 1122: Ordered Antivert Tab 25 mg PO. 1447: I spoke with the member service representative from [employer]. They state that the patient's pacemaker appears to be working normally, and she should be safe to go home. 1250: Upon reevaluation, the patient is resting comfortably. She feels much better. I discussed my findings with the patient and she understands and agrees with the treatment plan. Based on the patients age, coexisting illnesses, exam and lab findings the decision to treat as an outpatient was made. The patient remained stable while under my care. The patient appeared well at the time of discharge. Medical Decision Differential diagnosis includes etiologies such as benign positional vertigo, dehydration, hypovolemia, anemia, tumor, infection, hypoglycemia, electrolyte abnormalities, cardiac sources, intracerebral event, toxicologic, neurologic, as well as others were entertained. Patient is a 76-year-old female who presents the ER for dizziness with positional changes. She denies any chest pain or shortness of breath or any other associated symptoms. Completely neurologically intact. IV was established and CBC along with BMP, LFTs, bilirubin TSH and troponin was normal. EKG was unremarkable/unchanged. CT head was negative. Chest x-ray was unremarkable. Patient was updated at bedside. She was given fluids. She felt significantly better. Patient was discharged to follow-up with PCP as an outpatient. She is encouraged to increase her fluid intake for the rest the day. Discussed with Pt concerning signs and symptoms to watch out for. Pt was instructed to follow up with their PCP and discussed with the patient their option to return to the ED at anytime for persistent or worsening symptoms. The appropriate anticipatory guidance and out-patient management, including indications for return to the emergency department, were explained at length to the patient and understood. Medication Reconcilliation Current Medication List: was personally reviewed by me Blood Pressure Screening Patient's blood pressure: Elevated blood pressure Blood pressure disposition: Elevated BP felt to be situational Impression Primary Impression: Dehydration Additional Impression: Dizziness, psychogenic Scribe Attestation The scribe's documentation has been prepared under my direction and personally reviewed by me in its entirety. I confirm that the note above accurately reflects all work, treatment, procedures, and medical decision making performed by me. Departure Information Dispostion Home / Self-Care Referrals Lg Rodriguez MD (PCP) Forms HOME CARE DOCUMENTATION FORM, IMPORTANT VISIT INFORMATION Patient Instructions ED Dizziness O, My [facility] Additional Instructions Please follow up with your primary care doctor with in the next 24 hours. Any worsening of your symptoms, please return to the ED immediately. This includes any fevers greater than 100.4, worsening pain, chest pain, shortness breath, persistent nausea, vomiting, unable to eat or drink, or any other concerning signs or symptoms from your standpoint. Please try to drink more fluids throughout the remainder of today as I think you are likely slightly dehydrated which was causing the lightheadedness. Problem Qualifiers
== END 2017-06-27 13:21 | disposition home or self-care (01) ==
LOC: C.EDB 10:16 → C.EDA 13:21
DX: E86.0 Dehydration (principal); R42 Dizziness and giddiness; I10 Essential (primary) hypertension; Z95.0 Presence of cardiac pacemaker; G25.81 Restless legs syndrome; Z87.891 Personal history of nicotine dependence; Z79.82 Long term (current) use of aspirin; Z79.899 Other long term (current) drug therapy

== ENCOUNTER → 2017-10-07 | Outpatient (CLI) | payer OTHER, MEDICARE ==
[~2017-10-07] MED LIST changes: +GLYC1AER INH; +LEVA45AE INH; +LEVO88TA PO; -LEVO88TA3 PO; -MULT-1092 PO
[2017-10-07 12:29] LABS: BASO % 0.7 %; BASO ABS # 0.05 K/uL (0-0.2); EOS % 3.2 %; EOS ABS # 0.22 K/uL (0-0.5); HEMATOCRIT 41.7 % (37-47); HEMOGLOBIN 13.4 g/dL (12.0-16.0); IG# 0.03 K/uL (0.00-0.02); LYMPH % 20.1 %; LYMPH ABS # 1.36 K/uL (1.2-3.4); MEAN CELL VOLUME 96.8 fL (80-100); MEAN CORPUSCULAR HEMOGLOBIN 31.1 pg (25-34); MEAN CORPUSCULAR HGB CONC 32.1 g/dl (32-36); MEAN PLATELET VOLUME 10.2 fL (7.4-10.4); MONO % 6.9 %; MONO ABS # 0.47 K/uL (0.11-0.59); NEUT % 68.7 %; NEUT ABS # 4.65 K/uL (1.4-6.5); PLATELET COUNT 278 K/uL (130-400); RED CELL DISTRIBUTION WIDTH CV 13.5 % (11.5-14.5); RED CELL DISTRIBUTION WIDTH SD 47.5 fL (36.4-46.3); WHITE BLOOD COUNT 6.78 K/uL (4.8-10.8)
[2017-10-07 12:42] LABS: BLOOD UREA NITROGEN 20 mg/dl (7-18); CALCIUM 9.5 mg/dl (8.5-10.1); CARBON DIOXIDE 29 mmol/L (21-32); CREATININE 1.31 mg/dl (0.60-1.20); GLUCOSE 105 mg/dl (70-99); POTASSIUM 3.9 mmol/L (3.5-5.1); SODIUM 141 mmol/L (136-145)
[2017-10-07 12:44] LABS: PTT PATIENT 25.9 SECONDS (21.0-31.0)
== END | disposition home or self-care (01) ==
LOC: C.LAB1850 10:49
PROVIDERS: ATTEND Physician Assistant
DX: D36.9 Benign neoplasm, unspecified site (principal)

== ENCOUNTER → 2017-10-07 | Outpatient (CLI) | payer OTHER, MEDICARE ==
--- NOTE | 2017-10-07 11:09 | DIAGNOSTIC IMAGING REPORT ---
CT SCAN OF THE CHEST WITHOUT IV CONTRAST CLINICAL HISTORY: Follow-up pulmonary nodule. COMPARISON STUDY: Chest CT scans dated 11/13/2016 and 04/19/2016. TECHNIQUE: CT scan of the thorax was performed from the thoracic inlet to the upper abdomen. Images are reviewed in the axial, sagittal, and coronal planes. IV contrast was not administered for this examination. A dose lowering technique was utilized adhering to the principles of ALARA. CT DOSE: 334.67 mGy.cm FINDINGS: Thyroid: Atrophic versus surgically absent. Thoracic aorta: There is atherosclerotic calcification of the thoracic aorta, which is normal in caliber and demonstrates standard 3-vessel arch anatomy. Heart: A cardiac pacemaker is present in the left chest wall. Leads terminate in the right atrial appendage and the right ventricle. The heart enlarged and without pericardial effusion. Coronary calcifications are observed. Lungs and pleural spaces: Emphysematous change is noted. No airspace consolidation is seen typical for pneumonia. There is a small right pleural effusion which has decreased in size from 11/13/2016. Scarring/atelectasis is present at the right lung base. There is a 4 mm left apical pulmonary nodule seen image #43. This has not significantly changed from 04/19/2016. No new pulmonary nodule is identified. A punctate calcified granuloma is seen at the right apex. Peribronchial thickening is again seen in the right lower lobe. Mediastinum: There are scattered subcentimeter mediastinal lymph nodes. These are not pathologically enlarged by size criteria. Nadine: Not well assessed without IV contrast. Axillae: There is no axillary lymphadenopathy. Upper abdomen: There is a tiny hiatal hernia. The gallbladder is surgical absent. Intrahepatic biliary ductal dilatation pneumobilia are similar to previous. A 2.0 cm left adrenal adenoma is unchanged. Skeletal structures: The skeletal structures are osteopenic. No lytic or blastic bony lesions are seen. Degenerative change is seen throughout the thoracic spine. IMPRESSION: 1. Cardiomegaly and emphysema. 2. A pathologically indeterminant but low suspicion 4 mm pulmonary nodule at the left apex has not significantly changed dating back to 04/19/2016. Continued follow-up as per the Fleischner criteria is recommended. See below. 3. No new pulmonary lesion is identified. 4. There is a trace right pleural effusion, which is decreased in size from 11/13/2016. 5. Additional findings as above. Please refer to below summary of Fleischner criteria recommendations for follow-up of incidental CT nodules (Chelsie Marques, Guidelines for management of small pulmonary nodules detected on CT scans: A statement from the Fleischner Society, Radiology 237: [phone].) SOLID NODULES Solitary nodule size: <6 mm * low risk patients: no follow-up needed * high risk patients: optional CT at 12 months Solitary nodule size: 6-8 mm * low risk patients: follow-up at 6-12 months, then consider further follow-up at 18-24 months * high risk patients: initial follow-up CT at 6-12 months and then at 18-24 months if no change Solitary nodule size: >8 mm * either low or high risk patients - consider follow-up CT at 3 months, and/or CT-PET, and/or biopsy Multiple nodules size: <6 mm * low risk patients: no routine follow-up * high risk patients: optional CT at 12 months Multiple nodules size: 6-8 mm * low risk patients: follow-up at 3-6 months, then consider further follow-up at 18-24 months * high risk patients: follow-up at 3-6 months, then at 18-24 months if no change Multiple nodules size: >8 mm * low risk patients: follow-up at 3-6 months, then consider further follow-up at 18-24 months * high risk patients: follow-up at 3-6 months, then at 18-24 months if no change Note: newly detected indeterminate nodule in persons 35 years of age or older. * low risk patients: minimal or absent history of smoking and/or other known risk factors * high risk patients: history of smoking or of other known risk factors (e.g. first degree relative with lung cancer, or exposure to asbestos, radon, uranium) * if a nodule up to 8 mm is partly solid or is ground glass further follow-up is required after 24 months to exclude possible slow growing adenocarcinoma (MAMIE) SUBSOLID NODULES Solitary pure ground-glass nodule * nodule size <6 mm - no CT follow-up required * nodule size >=6 mm - follow-up CT at 6-12 months, then every 2 years until 5 years Solitary part-solid nodule * nodule size <6 mm - no CT follow-up required * nodule size >=6 mm - follow-up CT at 3-6 months. If unchanged, and solid component remains <6 mm, then annual follow-up for 5 years Multiple subsolid nodules * nodule size <6 mm - follow-up CT at 3-6 months, consider further follow-up at 2 and 4 years if stable * nodule size >=6 mm - follow-up CT at 3-6 months, subsequent management based on the most suspicious nodule(s) Electronically signed by: Troy Platt M.D. 10/07/2017 11:08 AM Dictated Date/Time: 10/07/2017 10:42 AM
== END | disposition home or self-care (01) ==
LOC: C.CTS 10:29
PROVIDERS: ATTEND Physician Assistant
DX: D36.9 Benign neoplasm, unspecified site (principal)

== ENCOUNTER 2018-12-29 14:12 | Inpatient (IN) ==
[2018-12-29] MEDS ORDERED: MoRPHine SULFATE 4 MG/ML 1 ML CARP\\VIAL IV PRN (14:17)
[2018-12-29] MEDS ORDERED: ONDANSETRON INJ 2 MG/ML 2 ML VIAL IV STA (14:17)
[2018-12-29] MEDS ORDERED: SODIUM CHLORIDE 0.9% 500 ML IV SCH (14:30)
--- NOTE | 2018-12-29 14:31 | XRay Report ---
XR chest 1V portable HISTORY: 78 years-old Female right flank pain acute right-sided flank pain COMPARISON: Chest CT 10/07/2017, chest radiograph 06/27/2017 TECHNIQUE: Portable AP view of the chest FINDINGS: Cardiac silhouette is enlarged, unchanged. Calcified plaque of the thoracic aorta, arch. Stable left subclavian pacer. No pneumothorax or large pleural effusion. Mild right hemidiaphragm elevation. Emph ysema with chronic interstitial coarsening. Mildly progressive ill-defined right basilar opacities roy ggestive of probable atelectasis. Mild blunting of the right costophrenic angle. Degenerative changes of the shoulders and spine. IMPRESSION: 1. Cardiomegaly without acute process. 2. Emphysema with chronic interstitial coarsening. The above report was generated using voice recognition software. It may contain grammatical, syntax o r spelling errors. Electronically signed by: Vivek Shankar M.D. 12/29/2018 2:30 PM
--- NOTE | 2018-12-29 14:34 | Emergency Department Note ---
Entered by Marine Poe acting as a scribe for Yohannes De Los Santos DO History of Present Illness General Chief complaint: Abdominal Pain Time Seen by Provider: 12/29/18 14:14 Source: patient and family (daughter) Mode of arrival: EMS Limitations: no limitations History of Present Illness Provider complaint: Abdominal pain Onset (ago): hour(s) (this morning) Location: abdomen Radiation: back Pain Consistency: + other (worsening) Quality: + other (pain) Associated symptoms: + nausea/vomiting (positive nausea, negative vomiting) and + shortness of breath; no chest pain Treatments prior to arrival: other (Tylenol) The patient is an 78 year old female with a history of atrial fibrillation, a cholecystectomy, and a thyroidectomy who presents to the Emergency Room with complaints of worsening abdominal pain starting this morning. Per daughter, the patient was getting her hair done when she suddenly started experiencing abdominal pain that radiated to her back. She states that the patient has a history of a cholecystectomy and that at the time of the surgery, the patient had sludge in the area. The patient further complains of shortness of breath and nausea but denies any vomiting and chest pain. She reports that she took Tylenol for her symptoms prior to arrival. Per daughter, the patient has received her flu shot this year and lives in a senior apartment. Home Medications Home Medications Medication Instructions Recorded Confirmed Type acetaminophen 500 mg tablet 500 mg PO Q4H PRN 12/03/18 12/29/18 History aspirin 81 mg tablet,delayed 81 mg PO DAILY 12/03/18 12/29/18 History release cholecalciferol (vitamin D3) 5,000 5,000 units PO DAILY 12/03/18 12/29/18 History unit tablet furosemide 20 mg tablet 20 mg PO DAILY 12/03/18 12/29/18 History levalbuterol tartrate 45 2 puffs INH Q4H PRN gm 12/03/18 12/29/18 History mcg/actuation aerosol inhaler levothyroxine 88 mcg tablet 88 mcg PO DAILY 12/03/18 12/29/18 History metoprolol succinate 50 mg 50 mg PO DAILY 12/03/18 12/29/18 History tablet,extended release 24 hr potassium chloride 20 mEq 20 meq PO DAILY 12/03/18 12/29/18 History tablet,extended release(part/cryst) ropinirole 1 mg tablet 1 mg PO QPM tab 12/03/18 12/29/18 History famotidine 20 mg tablet 20 mg PO DAILY 12/16/18 12/29/18 History fluticasone fur. 100 mcg-umeclid 1 puffs INH DAILY #60 ea 12/16/18 12/29/18 Rx 62.5 mcg-vilant 25 mcg inhalat.powder gabapentin 100 mg capsule 100 mg PO DAILY 12/16/18 12/29/18 History ciprofloxacin HCl 500 mg PO BID 11 Days #22 tab 01/02/19 Rx metronidazole 500 mg PO TID 11 Days #33 tab 01/02/19 Rx polyethylene glycol 3350 [Miralax] 17 gm PO DAILY PRN #30 ea 01/02/19 Rx Allergies Allergy/AdvReac Type Severity Reaction Status Date / Time No Known Allergies Allergy Unverified 12/29/18 17:14 Past Med/Surg History Medical History Atrial fibrillation (Chronic) Hypertension (Chronic) Pacemaker (Chronic) Restless leg syndrome (Chronic) Surgical History S/P cholecystectomy (Resolved) S/P thyroidectomy (Resolved) Social History Preferred Language: Ivorian Communication Ability: Effective 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 and A total of 10 systems reviewed and were otherwise negative Physical Exam Vital Signs Vital Signs - 24 hr 12/29/18 14:17 12/29/18 14:29 12/29/18 15:00 Temperature 36.5 C Temperature Source Oral Pulse Rate 80 74 Pulse Rate from SpO2 Sensor Pulse Rhythm Regular Pulse Strength Normal Respiratory Rate 16 22 Respiratory Effort / Characteristics Non-Labored Respiratory Depth Normal Respiratory Pattern Regular Blood Pressure 157/73 H Blood Pressure Mean 101 Blood Pressure Position Lying Pulse Oximetry 95 95 Oxygen Delivery Method Room Air Room Air Oxygen Flow Rate Fraction of Inspired Oxygen Sepsis Recent Fever Within 48 Hours No Sepsis Action Taken by Nursing No Action Required 12/29/18 15:47 12/29/18 15:48 12/29/18 16:00 Temperature Temperature Source Pulse Rate 78 75 62 Pulse Rate from SpO2 Sensor 75 65 Pulse Rhythm Pulse Strength Respiratory Rate 20 20 19 Respiratory Effort / Characteristics Respiratory Depth Respiratory Pattern Blood Pressure 134/78 133/70 Blood Pressure Mean 96 91 Blood Pressure Position Pulse Oximetry 90 90 Oxygen Delivery Method Oxygen Flow Rate Fraction of Inspired Oxygen Sepsis Recent Fever Within 48 Hours Sepsis Action Taken by Nursing 12/29/18 16:01 12/29/18 16:30 12/29/18 16:31 Temperature Temperature Source Pulse Rate 73 77 70 Pulse Rate from SpO2 Sensor 70 71 71 Pulse Rhythm Pulse Strength Respiratory Rate 24 24 25 H Respiratory Effort / Characteristics Respiratory Depth Respiratory Pattern Blood Pressure 129/68 Blood Pressure Mean 88 Blood Pressure Position Pulse Oximetry 90 96 97 Oxygen Delivery Method Oxygen Flow Rate Fraction of Inspired Oxygen Sepsis Recent Fever Within 48 Hours Sepsis Action Taken by Nursing 12/29/18 17:00 12/29/18 17:01 12/29/18 17:30 Temperature Temperature Source Pulse Rate 73 69 75 Pulse Rate from SpO2 Sensor 74 69 77 Pulse Rhythm Pulse Strength Respiratory Rate 22 24 Respiratory Effort / Characteristics Respiratory Depth Respiratory Pattern Blood Pressure 142/70 H 141/72 H Blood Pressure Mean 94 95 Blood Pressure Position Pulse Oximetry 96 96 93 Oxygen Delivery Method Oxygen Flow Rate Fraction of Inspired Oxygen Sepsis Recent Fever Within 48 Hours Sepsis Action Taken by Nursing 12/29/18 17:31 12/29/18 18:00 12/29/18 18:30 Temperature Temperature Source Pulse Rate 73 71 70 Pulse Rate from SpO2 Sensor 72 70 72 Pulse Rhythm Pulse Strength Respiratory Rate 31 H 24 Respiratory Effort / Characteristics Respiratory Depth Respiratory Pattern Blood Pressure 141/69 H 142/67 H Blood Pressure Mean 93 92 Blood Pressure Position Pulse Oximetry 92 94 96 Oxygen Delivery Method Nasal Cannula Nasal Cannula Oxygen Flow Rate 2 2 Fraction of Inspired Oxygen Sepsis Recent Fever Within 48 Hours Sepsis Action Taken by Nursing 12/29/18 19:00 12/29/18 19:29 12/29/18 19:30 Temperature Temperature Source Pulse Rate 76 89 Pulse Rate from SpO2 Sensor 76 82 Pulse Rhythm Pulse Strength Respiratory Rate 29 H 35 H Respiratory Effort / Characteristics Spontaneous Accessory Muscle Use Labored Short of Breath Respiratory Depth Shallow Respiratory Pattern Irregular Rapid/Shallow Tachypnea Blood Pressure 142/68 H 220/110 H Blood Pressure Mean 92 146 Blood Pressure Position Pulse Oximetry 97 96 94 Oxygen Delivery Method Nasal Cannula Nasal Cannula Oxygen Flow Rate 2 2 Fraction of Inspired Oxygen 100 Sepsis Recent Fever Within 48 Hours Sepsis Action Taken by Nursing 12/29/18 19:31 12/29/18 19:32 12/29/18 19:45 Temperature Temperature Source Pulse Rate 81 80 73 Pulse Rate from SpO2 Sensor 76 78 80 Pulse Rhythm Pulse Strength Respiratory Rate 43 H 42 H 26 H Respiratory Effort / Characteristics Spontaneous Labored Respiratory Depth Shallow Respiratory Pattern Irregular Blood Pressure 215/84 H 201/112 H Blood Pressure Mean 127 141 Blood Pressure Position Pulse Oximetry 89 L 95 100 Oxygen Delivery Method Non-rebreather BiPAP Oxygen Flow Rate Fraction of Inspired Oxygen 50 Sepsis Recent Fever Within 48 Hours Sepsis Action Taken by Nursing 12/29/18 20:00 Temperature Temperature Source Pulse Rate 76 Pulse Rate from SpO2 Sensor 76 Pulse Rhythm Pulse Strength Respiratory Rate 31 H Respiratory Effort / Characteristics Respiratory Depth Respiratory Pattern Blood Pressure 169/72 H Blood Pressure Mean 104 Blood Pressure Position Pulse Oximetry 96 Oxygen Delivery Method BiPAP Oxygen Flow Rate Fraction of Inspired Oxygen Sepsis Recent Fever Within 48 Hours Sepsis Action Taken by Nursing GENERAL: Patient is awake and alert. The patient is anxious appearing and uncomfortable. EYES: The conjunctivae are clear. The pupils are round and reactive. Proptosis was noted bilaterally. EARS, NOSE, MOUTH AND THROAT: The nose is without any evidence of any deformity. Mucous membranes are moist tongue is midline NECK: The neck is nontender and supple. RESPIRATORY: Normal respiratory effort is noted there is no evidence of wheezing rhonchi or rales CARDIOVASCULAR: Tachycardic rate with regular rhythm was noted. No definite murmurs noted. GASTROINTESTINAL: The abdomen is moderately distended and diffusely tender. There is guarding in the right upper quadrant. BACK: Right CVA tenderness was noted to percussion. There is no midline tenderness noted. MUSCULOSKELETAL/EXTREMITIES: There is no evidence of gross deformity full range of motion is noted in the hips and shoulders SKIN: There is no obvious evidence of any rash. Trace pedal edema was noted bilaterally. NEUROLOGIC: Patient is awake alert and oriented x3. Course 1415: The patient was evaluated in room C2A, and a complete history and physical examination were performed. 0: I reviewed the patient's case with Dr. Le - Hospitalist. 1932: I reevaluated the patient and she seems to be doing worse. The patient was moved to room A1 at this time. 1940: I reviewed the patient's case with Dr. Scott - Hospitalist. The patient will be taken to the ICU and Dr. Scott will evaluate the patient for further management. Consultations Consultation #1: [facility] Time: 18:30 Consultation #2: I reviewed the [facility] The patient will be taken to the ICU and Dr. Scott will evaluate the patient for further management. Time: 19:40 Administered Medications Discontinued Medications Albuterol (Duoneb) 3 ml NEB NOW STA Stop: 12/29/18 19:26 Last Admin: 12/29/18 20:20 Dose: 3 ml Documented by: [id number] Aspirin (Ecotrin Ectab) 81 mg PO DAILY JENNIFER Stop: 01/29/19 08:59 Last Admin: 01/02/19 07:43 Dose: 81 mg Documented by: [id number] Admin: 01/01/19 08:35 Dose: 81 mg Documented by: [id number] Admin: 12/31/18 08:19 Dose: 81 mg Documented by: [id number] Admin: 12/30/18 17:14 Dose: Not Given Documented by: [id number] Ciprofloxacin (Cipro) 500 mg PO NOW STA; Protocol Stop: 01/02/19 16:10 Last Admin: 01/02/19 16:40 Dose: 500 mg Documented by: [id number] Famotidine (Pepcid) 20 mg PO DAILY JENNIFER Stop: 01/31/19 08:59 Last Admin: 01/02/19 07:43 Dose: 20 mg Documented by: [id number] Admin: 01/01/19 08:35 Dose: 20 mg Documented by: [id number] Fentanyl Citrate (Fentanyl Citrate) 25 mcg IV Q2H PRN PRN Reason: Pain Stop: 01/13/19 00:29 Last Admin: 12/30/18 09:45 Dose: 25 mcg Documented by: [id number] Admin: 12/30/18 07:46 Dose: 25 mcg Documented by: [id number] Admin: 12/30/18 05:15 Dose: 25 mcg Documented by: [id number] Admin: 12/30/18 02:40 Dose: 25 mcg Documented by: [id number] Fluticasone/Umeclidinium/Vilanterol (Trelegy Ellipta 100-62.5-25) 1 ea INH DAILY REPLACED BY [facility] Stop: 01/30/19 12:29 Last Admin: 01/02/19 07:43 Dose: 1 ea Documented by: [id number] Admin: 01/01/19 08:35 Dose: 1 ea Documented by: [id number] Admin: 12/31/18 13:42 Dose: 1 ea Documented by: [id number] Furosemide (Lasix) Confirm Administered Dose 80 mg IV .STK-MED ONE Stop: 12/29/18 19:40 Last Admin: 12/29/18 19:59 Dose: Not Given Documented by: [id number] Furosemide (Lasix) 20 mg PO DAILY REPLACED BY [facility] Stop: 02/01/19 08:59 Last Admin: 01/02/19 09:47 Dose: 20 mg Documented by: [id number] Heparin Sodium (Porcine) (Heparin Sodium (Porcine)) 5,000 units SQ Q8 JENNIFER Stop: 01/28/19 21:59 Last Admin: 01/02/19 06:22 Dose: 5,000 units Documented by: [id number] Cosigned by: [id number] Admin: 01/01/19 21:25 Dose: 5,000 units Documented by: [id number] Cosigned by: [id number] Admin: 01/01/19 14:14 Dose: 5,000 units Documented by: [id number] Cosigned by: [id number] Admin: 01/01/19 05:38 Dose: 5,000 units Documented by: [id number] Cosigned by: [id number] Admin: 12/31/18 21:11 Dose: 5,000 units Documented by: [id number] Cosigned by: [id number] Admin: 12/31/18 13:42 Dose: 5,000 units Documented by: [id number] Cosigned by: [id number] Admin: 12/31/18 06:11 Dose: 5,000 units Documented by: [id number] Cosigned by: [id number] Admin: 12/30/18 22:19 Dose: 5,000 units Documented by: [id number] Cosigned by: [id number] Admin: 12/30/18 14:10 Dose: 5,000 units Documented by: [id number] Cosigned by: [id number] Admin: 12/30/18 06:03 Dose: 5,000 units Documented by: [id number] Cosigned by: [id number] Admin: 12/29/18 21:46 Dose: 5,000 units Documented by: [id number] Cosigned by: [id number] Hydromorphone HCl (Dilaudid) 0.5 mg IV Q2H PRN PRN Reason: Severe Pain Stop: 01/13/19 09:50 Last Admin: 12/31/18 12:46 Dose: 0.5 mg Documented by: [id number] Admin: 12/30/18 12:41 Dose: 0.5 mg Documented by: [id number] Sodium Chloride (Nss) 500 mls @ 999 mls/hr IV .Q31M JENNIFER Stop: 12/29/18 15:00 Last Infusion: 12/29/18 16:04 Dose: 0 mls/hr Documented by: [id number] Admin: 12/29/18 15:32 Dose: 999 mls/hr Documented by: [id number] Piperacillin Sod/Tazobactam Sod (Zosyn) 4.5 gm in 120 mls @ 240 mls/hr IV NOW ONE Stop: 12/29/18 18:06 Last Infusion: 12/29/18 18:48 Dose: 0 mls/hr Documented by: [id number] Admin: 12/29/18 18:15 Dose: 240 mls/hr Documented by: [id number] Furosemide 60 mg/ Syringe 6 mls @ 4 mls/min IV ONE ONE Stop: 12/29/18 19:39 Last Admin: 12/29/18 19:45 Dose: 4 mls/min Documented by: [id number] Famotidine 20 mg/ Syringe 5 mls @ 2.5 mls/min IV Q12 JENNIFER Stop: 01/28/19 21:17 Last Admin: 12/31/18 08:19 Dose: 2.5 mls/min Documented by: [id number] Admin: 12/30/18 21:09 Dose: 2.5 mls/min Documented by: [id number] Admin: 12/30/18 07:53 Dose: 2.5 mls/min Documented by: [id number] Admin: 12/29/18 21:45 Dose: 2.5 mls/min Documented by: [id number] Furosemide 60 mg/ Syringe 6 mls @ 4 mls/min IV BID JENNIFER Stop: 01/28/19 21:17 Last Admin: 12/30/18 07:53 Dose: 4 mls/min Documented by: [id number] Admin: 12/29/18 21:46 Dose: 4 mls/min Documented by: [id number] Piperacillin Sod/Tazobactam (Sod 3.375 gm/ Dextrose) 115 mls @ 28.75 mls/hr IV Q8H JENNIFER; Protocol Stop: 12/31/18 17:30 Last Infusion: 12/31/18 22:07 Dose: 0 mls/hr Documented by: [id number] Infusion: 12/31/18 20:18 Dose: 0 mls/hr Documented by: [id number] Admin: 12/31/18 16:41 Dose: 28.8 mls/hr Documented by: [id number] Infusion: 12/31/18 12:20 Dose: 0 mls/hr Documented by: [id number] Admin: 12/31/18 08:18 Dose: 28.8 mls/hr Documented by: [id number] Infusion: 12/31/18 03:35 Dose: 0 mls/hr Documented by: [id number] Admin: 12/30/18 23:31 Dose: 28.8 mls/hr Documented by: [id number] Infusion: 12/30/18 21:19 Dose: 0 mls/hr Documented by: [id number] Admin: 12/30/18 17:19 Dose: 28.8 mls/hr Documented by: [id number] Infusion: 12/30/18 11:55 Dose: 0 mls/hr Documented by: [id number] Admin: 12/30/18 07:53 Dose: 28.8 mls/hr Documented by: [id number] Infusion: 12/30/18 04:30 Dose: 0 mls/hr Documented by: [id number] Admin: 12/30/18 00:18 Dose: 28.8 mls/hr Documented by: [id number] Parenteral Electrolytes (Normosol-R) 1,000 mls @ 125 mls/hr IV .Q8H JENNIFER Stop: 01/29/19 08:44 Last Infusion: 12/31/18 09:44 Dose: 0 mls/hr Documented by: [id number] Admin: 12/31/18 04:13 Dose: 125 mls/hr Documented by: [id number] Infusion: 12/31/18 04:13 Dose: 0 mls/hr Documented by: [id number] Admin: 12/30/18 23:30 Dose: 125 mls/hr Documented by: [id number] Infusion: 12/30/18 22:23 Dose: 80 mls/hr Documented by: [id number] Admin: 12/30/18 09:53 Dose: 80 mls/hr Documented by: [id number] Sodium Chloride (Nss 1000ml) 1,000 mls @ 15 mls/hr IV .Q24H JENNIFER Stop: 12/31/18 14:44 Last Admin: 12/30/18 17:17 Dose: Not Given Documented by: [id number] Albumin Human (Albumin 25%) 50 mls @ 50 mls/hr IV ONE ONE Stop: 12/30/18 20:46 Last Admin: 12/30/18 20:31 Dose: Not Given Documented by: [id number] Albumin Human (Albumin 5%) 250 mls @ 250 mls/hr IV ONCE STA Stop: 12/30/18 21:32 Last Infusion: 12/30/18 21:50 Dose: 0 mls/hr Documented by: [id number] Admin: 12/30/18 20:42 Dose: 250 mls/hr Documented by: [id number] Potassium Chloride (K Elbert / Wtr) 10 meq in 100 mls @ 100 mls/hr IV Q1H JENNIFER Stop: 12/30/18 23:59 Last Infusion: 12/31/18 00:50 Dose: 0 mls/hr Documented by: [id number] Admin: 12/30/18 23:30 Dose: 75 mls/hr Documented by: [id number] Infusion: 12/30/18 23:22 Dose: 75 mls/hr Documented by: [id number] Admin: 12/30/18 22:02 Dose: 75 mls/hr Documented by: [id number] Infusion: 12/30/18 21:58 Dose: 0 mls/hr Documented by: [id number] Admin: 12/30/18 20:58 Dose: 100 mls/hr Documented by: [id number] Potassium Chloride (K Elbert / Wtr) 10 meq in 100 mls @ 100 mls/hr IV Q1H JENNIFER Stop: 12/31/18 05:39 Last Infusion: 12/31/18 07:53 Dose: 0 mls/hr Documented by: [id number] Admin: 12/31/18 06:27 Dose: 75 mls/hr Documented by: [id number] Infusion: 12/31/18 06:27 Dose: 0 mls/hr Documented by: [id number] Admin: 12/31/18 05:10 Dose: 75 mls/hr Documented by: [id number] Infusion: 12/31/18 05:10 Dose: 0 mls/hr Documented by: [id number] Infusion: 12/31/18 04:15 Dose: 75 mls/hr Documented by: [id number] Admin: 12/31/18 03:53 Dose: 100 mls/hr Documented by: [id number] Lactated Ringer's (Lr) 1,000 mls @ 999 mls/hr IV .Q1H1M ONE Stop: 12/31/18 12:18 Last Infusion: 12/31/18 18:39 Dose: 0 mls/hr Documented by: [id number] Admin: 12/31/18 11:32 Dose: 999 mls/hr Documented by: [id number] Lactated Ringer's (Lr) 1,000 mls @ 80 mls/hr IV .[id number] JENNIFER Stop: 01/30/19 15:29 Last Infusion: 01/01/19 11:02 Dose: 0 mls/hr Documented by: [id number] Admin: 01/01/19 01:08 Dose: 80 mls/hr Documented by: [id number] Infusion: 01/01/19 01:08 Dose: 80 mls/hr Documented by: [id number] Infusion: 12/31/18 23:45 Dose: 80 mls/hr Documented by: [id number] Admin: 12/31/18 16:41 Dose: 125 mls/hr Documented by: [id number] Piperacillin Sod/Tazobactam (Sod 2.25 gm/ Dextrose) 110 mls @ 200 mls/hr IV Q6H REPLACED BY [facility]; Protocol Stop: 01/09/19 00:00 Last Infusion: 01/02/19 04:53 Dose: 0 mls/hr Documented by: [id number] Admin: 01/02/19 03:51 Dose: 200 mls/hr Documented by: [id number] Infusion: 01/01/19 22:12 Dose: 0 mls/hr Documented by: [id number] Admin: 01/01/19 21:25 Dose: 200 mls/hr Documented by: [id number] Infusion: 01/01/19 17:21 Dose: 0 mls/hr Documented by: [id number] Admin: 01/01/19 16:38 Dose: 200 mls/hr Documented by: [id number] Infusion: 01/01/19 11:01 Dose: 0 mls/hr Documented by: [id number] Admin: 01/01/19 10:22 Dose: 200 mls/hr Documented by: [id number] Infusion: 01/01/19 04:05 Dose: 0 mls/hr Documented by: [id number] Admin: 01/01/19 03:15 Dose: 200 mls/hr Documented by: [id number] Infusion: 12/31/18 22:08 Dose: 0 mls/hr Documented by: [id number] Admin: 12/31/18 21:11 Dose: 200 mls/hr Documented by: [id number] Piperacillin Sod/Tazobactam (Sod 3.375 gm/ Dextrose) 115 mls @ 28.75 mls/hr IV Q8H JENNIFER; Protocol Stop: 01/09/19 09:59 Last Infusion: 01/02/19 13:31 Dose: 0 mls/hr Documented by: [id number] Admin: 01/02/19 09:46 Dose: 28.8 mls/hr Documented by: [id number] Furosemide 20 mg/ Syringe 2 mls @ 4 mls/min IV TODAY@1330 ONE Stop: 01/02/19 13:31 Last Admin: 01/02/19 13:39 Dose: 4 mls/min Documented by: [id number] Indomethacin (Indocin) 100 mg PO NOW ONE Stop: 12/30/18 14:01 Last Admin: 12/30/18 15:54 Dose: 100 mg Documented by: [id number] Indomethacin (Indocin) Confirm Administered Dose 100 mg VT .STK-MED ONE Stop: 12/30/18 15:24 Last Admin: 12/30/18 17:13 Dose: Not Given Documented by: [id number] Ipratropium [place] (Atrovent 0.02% 0.5mg/2.5ml) 0.5 mg INH Q4R JENNIFER Stop: 01/28/19 22:59 Last Admin: 01/02/19 07:04 Dose: 0.5 mg Documented by: [id number] Admin: 01/02/19 03:32 Dose: 0.5 mg Documented by: [id number] Admin: 01/01/19 23:10 Dose: 0.5 mg Documented by: [id number] Admin: 01/01/19 19:03 Dose: 0.5 mg Documented by: [id number] Admin: 01/01/19 15:38 Dose: 0.5 mg Documented by: [id number] Admin: 01/01/19 10:47 Dose: 0.5 mg Documented by: [id number] Admin: 01/01/19 06:59 Dose: 0.5 mg Documented by: [id number] Admin: 01/01/19 02:55 Dose: 0.5 mg Documented by: [id number] Admin: 12/31/18 23:15 Dose: 0.5 mg Documented by: [id number] Admin: 12/31/18 19:06 Dose: 0.5 mg Documented by: [id number] Admin: 12/31/18 15:06 Dose: 0.5 mg Documented by: [id number] Admin: 12/31/18 11:14 Dose: 0.5 mg Documented by: [id number] Admin: 12/31/18 07:25 Dose: 0.5 mg Documented by: [id number] Admin: 12/31/18 03:22 Dose: 0.5 mg Documented by: [id number] Admin: 12/30/18 23:38 Dose: 0.5 mg Documented by: [id number] Admin: 12/30/18 18:48 Dose: 0.5 mg Documented by: [id number] Admin: 12/30/18 14:59 Dose: 0.5 mg Documented by: [id number] Admin: 12/30/18 11:05 Dose: 0.5 mg Documented by: [id number] Admin: 12/30/18 07:25 Dose: 0.5 mg Documented by: [id number] Admin: 12/30/18 01:40 Dose: 0.5 mg Documented by: [id number] Admin: 12/29/18 22:04 Dose: 0.5 mg Documented by: [id number] Levalbuterol HCl (Xopenex 0.63 Mg/3 Ml Neb) 0.63 mg INH Q4R JENNIFER Stop: 01/28/19 22:59 Last Admin: 01/02/19 07:04 Dose: 0.63 mg Documented by: [id number] Admin: 01/02/19 03:32 Dose: 0.63 mg Documented by: [id number] Admin: 01/01/19 23:10 Dose: 0.63 mg Documented by: [id number] Admin: 01/01/19 19:03 Dose: 0.63 mg Documented by: [id number] Admin: 01/01/19 15:38 Dose: 0.63 mg Documented by: [id number] Admin: 01/01/19 10:47 Dose: 0.63 mg Documented by: [id number] Admin: 01/01/19 06:59 Dose: 0.63 mg Documented by: [id number] Admin: 01/01/19 02:55 Dose: 0.63 mg Documented by: [id number] Admin: 12/31/18 23:15 Dose: 0.63 mg Documented by: [id number] Admin: 12/31/18 19:06 Dose: 0.63 mg Documented by: [id number] Admin: 12/31/18 15:06 Dose: 0.63 mg Documented by: [id number] Admin: 12/31/18 11:14 Dose: 0.63 mg Documented by: [id number] Admin: 12/31/18 07:25 Dose: 0.63 mg Documented by: [id number] Admin: 12/31/18 03:22 Dose: 0.63 mg Documented by: [id number] Admin: 12/30/18 23:38 Dose: 0.63 mg Documented by: [id number] Admin: 12/30/18 18:48 Dose: 0.63 mg Documented by: [id number] Admin: 12/30/18 14:59 Dose: 0.63 mg Documented by: [id number] Admin: 12/30/18 11:05 Dose: 0.63 mg Documented by: [id number] Admin: 12/30/18 07:25 Dose: 0.63 mg Documented by: [id number] Admin: 12/30/18 01:40 Dose: 0.63 mg Documented by: [id number] Admin: 12/29/18 22:04 Dose: 0.63 mg Documented by: [id number] Levothyroxine Sodium (Synthroid) 88 mcg PO DAILYBB JENNIFER Stop: 01/29/19 06:29 Last Admin: 12/30/18 05:52 Dose: Not Given Documented by: [id number] Levothyroxine Sodium (Synthroid) 88 mcg PO DAILYBB JENNIFER Stop: 01/30/19 06:29 Last Admin: 01/02/19 07:06 Dose: 88 mcg Documented by: [id number] Admin: 01/01/19 05:38 Dose: 88 mcg Documented by: [id number] Admin: 12/31/18 06:11 Dose: 88 mcg Documented by: [id number] Metoprolol Succinate (Toprol Xl) 50 mg PO DAILY REPLACED BY [facility] Stop: 02/01/19 08:59 Last Admin: 01/02/19 09:47 Dose: 50 mg Documented by: [id number] Metronidazole (Flagyl) 500 mg PO NOW STA; Protocol Stop: 01/02/19 16:12 Last Admin: 01/02/19 16:40 Dose: 500 mg Documented by: [id number] Miscellaneous (Order Awaiting Action) 1 ea N/A QS REPLACED BY [facility] Stop: 01/29/19 18:14 Last Admin: 12/31/18 08:19 Dose: Not Given Documented by: [id number] Admin: 12/31/18 00:04 Dose: Not Given Documented by: [id number] Admin: 12/30/18 19:02 Dose: Not Given Documented by: [id number] Morphine Sulfate (Morphine Sulfate) 4 mg IV Q15M PRN PRN Reason: Pain Stop: 01/12/19 14:16 Last Admin: 12/29/18 15:32 Dose: 4 mg Documented by: [id number] Nitroglycerin (Nitro-Bid 2%) 0.5 inch EXT NOW ONE Stop: 12/29/18 19:40 Last Admin: 12/29/18 20:00 Dose: Not Given Documented by: [id number] Nitroglycerin (Nitro-Bid 2%) Confirm Administered Dose 18 inch .ROUTE .STK-MED ONE Stop: 12/29/18 19:41 Last Admin: 12/29/18 20:00 Dose: 1 inch Documented by: [id number] Nitroglycerin (Nitro-Bid 2%) 1 inch EXT Q6 REPLACED BY [facility] Stop: 01/28/19 19:59 Last Admin: 12/30/18 18:33 Dose: Not Given Documented by: [id number] Admin: 12/29/18 20:40 Dose: Not Given Documented by: [id number] Ondansetron HCl (Zofran) 4 mg IV NOW STA Stop: 12/29/18 14:18 Last Admin: 12/29/18 15:31 Dose: 4 mg Documented by: [id number] Oxycodone HCl (Roxicodone Immediate Rel) 5 mg PO Q4H PRN PRN Reason: Mild Pain Stop: 01/14/19 12:54 Last Admin: 01/02/19 03:50 Dose: 5 mg Documented by: [id number] Admin: 01/01/19 16:17 Dose: 5 mg Documented by: [id number] Admin: 01/01/19 08:34 Dose: 5 mg Documented by: [id number] Admin: 01/01/19 02:29 Dose: 5 mg Documented by: [id number] Admin: 12/31/18 20:09 Dose: 5 mg Documented by: [id number] Polyethylene Glycol (Miralax Powder Packet) 17 gm PO ONE ONE Stop: 01/01/19 11:57 Last Admin: 01/01/19 12:12 Dose: 17 gm Documented by: [id number] Polyethylene Glycol (Miralax Powder Packet) 17 gm PO ONE ONE Stop: 01/02/19 12:54 Last Admin: 01/02/19 13:39 Dose: 17 gm Documented by: [id number] Potassium Chloride (Klor-Con M20) 40 meq PO QAM REPLACED BY [facility] Stop: 01/31/19 08:59 Last Admin: 01/02/19 07:43 Dose: 40 meq Documented by: [id number] Admin: 01/01/19 10:22 Dose: 40 meq Documented by: [id number] Ropinirole HCl (Requip) 1 mg PO NOW STA Stop: 12/30/18 22:01 Last Admin: 12/30/18 22:18 Dose: 1 mg Documented by: [id number] Ropinirole HCl (Requip) 1 mg PO QPM REPLACED BY [facility] Stop: 01/30/19 21:39 Last Admin: 01/01/19 21:24 Dose: 1 mg Documented by: [id number] Admin: 01/01/19 01:08 Dose: 1 mg Documented by: [id number] Impression & Plan Right upper quadrant abdominal pain, Pulmonary edema, Elevated LFTs, Hypoxia, Respiratory acidosis Critical Care Time Critical Care Time: Yes Total Critical Care Time: 60 I have personally spent 60 minutes of critical care time in the direct management of this patient. This includes bedside care, interpretation of diagnostic studies, and testing, discussion with consultants, patient, and family members, and other required patient management activities. This 60 minutes is in excess of all separately billable procedures. Discharge Plan Visit Data *Final* Discharge Date/Time: 12/29/18 20:47 Chief Complaint: Abdominal Pain ED Provider: Yohannes De Los Santos Discharge Problem: Right upper quadrant abdominal pain, Pulmonary edema, Elevated LFTs, Hypoxia, Respiratory acidosis Patient Disposition: Admitted As Inpatient Condition: Fair Discharge Instructions Interventions: ED Discharge Assessment Last Done: 12/29/18 20:47 Medical Decision Making Differential Diagnosis Differential diagnosis includes: appendicitis, diverticulitis, PUD, biliary pathology, UTI, pancreatitis, obstruction, mesenteric ischemia, aortic pathology, infections, inflammatory bowel disease, renal colic, as well as others were entertained. Medical Records Attestation: I reviewed the patient's medical records. Home Medications Current Medication List: was personally reviewed by me Laboratory Data Attestation: I reviewed the patient's lab results. Result diagrams: 01/01/19 06:39 01/02/19 05:48 Lab Results 12/29/18 12/29/18 12/29/18 Range/Units 15: 15: 15: WBC 14.56 H (4.8-10.8) K/uL RBC 4.63 (4.2-5.4) M/uL Hgb 15.2 (12.0-16.0) g/dL Hct 45.4 (37-47) % MCV 98.1 (80-100) fL MCH 32.8 (25-34) pg MCHC 33.5 (32-36) g/dL RDW Std Deviation 47.8 H (36.4-46.3) fL RDW Coeff of Agusto 13.5 (11.5-14.5) % Plt Count 273 (130-400) K/uL MPV 10.1 (7.4-10.4) fL Immature Gran % (Auto) 0.4 % Neut % (Auto) 93.5 % Lymph % (Auto) 3.2 % [place] % (Auto) 2.6 % Eos % (Auto) 0.2 % Baso % (Auto) 0.1 % Immature Gran # (Auto) 0.06 H (0.00-0.02) K/uL Neut # (Auto) 13.61 H (1.4-6.5) K/uL Lymph # (Auto) 0.47 L (1.2-3.4) K/uL [place] # (Auto) 0.38 (0.11-0.59) K/uL Eos # (Auto) 0.03 (0-0.5) K/uL Baso # (Auto) 0.01 (0-0.2) K/uL PT Cancelled INR Cancelled APTT Cancelled PTT Ratio Cancelled POC pH (7.35-7.45) POC pCO2 (35-46) mmHg POC pO2 (80-95) mmHg POC HCO3 (19-24) efren/L POC Total CO2 (24-31) mEq/l POC Base Excess (-9-1.8) efren/L POC ABG O2 Sat (90-95) % Sodium 137 (136-145) mmol/L Potassium (3.5-5.1) mmol/L Chloride 103 (98-107) mmol/L Carbon Dioxide 25 (21-32) mmol/L Anion Gap 9.0 (3-11) BUN 20 H (7-18) mg/dl Creatinine 1.28 H (0.6-1.2) mg/dl Est Cr Clr Drug Dosing 43.2 ml/min Est GFR ( Amer) 45.7 Est GFR (Non-Af Amer) 39.4 BUN/Creatinine Ratio 15.9 (10-20) Glucose 97 (70-99) mg/dl Calcium 10.5 H (8.5-10.1) mg/dl Total Bilirubin 2.9 H (0.2-1) mg/dl AST (15-37) U/L ALT 326 H (12-78) U/L Alkaline Phosphatase 325 H (45-117) U/L Troponin I < 0.015 (0-0.045) ng/ml Total Protein 8.7 H (6.4-8.2) gm/dl Albumin 3.9 (3.4-5.0) gm/dl Globulin 4.8 H (2.5-4.0) gm/dl Albumin/Globulin Ratio 0.8 L (0.9-2) Lipase 150 (73-393) U/L Urine Color Urine Appearance (Clear) Urine pH (4.5-7.5) Ur Specific [place] (1.000-1.030) Urine Protein (Negative) Urine Glucose (UA) (Negative) Urine Ketones (Negative) Urine Blood (Negative) Urine Nitrite (Negative) Urine Bilirubin (Negative) Urine Urobilinogen (Negative) Ur Leukocyte Esterase (Negative) Urine WBC (Auto) (0-5) /hpf Urine RBC (Auto) (0-4) /hpf U Hyaline Cast (Auto) (0-5) /lpf U Epithel Cells (Auto) (0-5) /lpf Urine Bacteria (Auto) (Negative) 12/29/18 12/29/18 12/29/18 Range/Units 15:34 16:50 16:50 WBC (4.8-10.8) K/uL RBC (4.2-5.4) M/uL Hgb (12.0-16.0) g/dL Hct (37-47) % MCV (80-100) fL MCH (25-34) pg MCHC (32-36) g/dL RDW Std Deviation (36.4-46.3) fL RDW Coeff of Agusto (11.5-14.5) % Plt Count (130-400) K/uL MPV (7.4-10.4) fL Immature Gran % (Auto) % Neut % (Auto) % Lymph % (Auto) % [place] % (Auto) % Eos % (Auto) % Baso % (Auto) % Immature Gran # (Auto) (0.00-0.02) K/uL Neut # (Auto) (1.4-6.5) K/uL Lymph # (Auto) (1.2-3.4) K/uL [place] # (Auto) (0.11-0.59) K/uL Eos # (Auto) (0-0.5) K/uL Baso # (Auto) (0-0.2) K/uL PT 10.2 INR 1.0 APTT 23.3 PTT Ratio 0.9 POC pH (7.35-7.45) POC pCO2 (35-46) mmHg POC pO2 (80-95) mmHg POC HCO3 (19-24) efren/L POC Total CO2 (24-31) mEq/l POC Base Excess (-9-1.8) efren/L POC ABG O2 Sat (90-95) % Sodium (136-145) mmol/L Potassium 4.0 (3.5-5.1) mmol/L Chloride (98-107) mmol/L Carbon Dioxide (21-32) mmol/L Anion Gap (3-11) BUN (7-18) mg/dl Creatinine (0.6-1.2) mg/dl Est Cr Clr Drug Dosing ml/min Est GFR ( Amer) Est GFR (Non-Af Amer) BUN/Creatinine Ratio (10-20) Glucose (70-99) mg/dl Calcium (8.5-10.1) mg/dl Total Bilirubin (0.2-1) mg/dl AST 485 H (15-37) U/L ALT (12-78) U/L Alkaline Phosphatase (45-117) U/L Troponin I (0-0.045) ng/ml Total Protein (6.4-8.2) gm/dl Albumin (3.4-5.0) gm/dl Globulin (2.5-4.0) gm/dl Albumin/Globulin Ratio (0.9-2) Lipase (73-393) U/L Urine Color Dark Yellow Urine Appearance Clear (Clear) Urine pH 7.0 (4.5-7.5) Ur Specific [place] 1.020 (1.000-1.030) Urine Protein Negative (Negative) Urine Glucose (UA) Negative (Negative) Urine Ketones Negative (Negative) Urine Blood Negative (Negative) Urine Nitrite Negative (Negative) Urine Bilirubin 2+ H (Negative) Urine Urobilinogen Positive H (Negative) Ur Leukocyte Esterase Trace H (Negative) Urine WBC (Auto) 1-5 (0-5) /hpf Urine RBC (Auto) 0-4 (0-4) /hpf U Hyaline Cast (Auto) 1-5 (0-5) /lpf U Epithel Cells (Auto) 20-30 H (0-5) /lpf Urine Bacteria (Auto) Negative (Negative) 12/29/18 12/29/18 Range/Units 16:50 19:45 WBC (4.8-10.8) K/uL RBC (4.2-5.4) M/uL Hgb (12.0-16.0) g/dL Hct (37-47) % MCV (80-100) fL MCH (25-34) pg MCHC (32-36) g/dL RDW Std Deviation (36.4-46.3) fL RDW Coeff of Agusto (11.5-14.5) % Plt Count (130-400) K/uL MPV (7.4-10.4) fL Immature Gran % (Auto) % Neut % (Auto) % Lymph % (Auto) % [place] % (Auto) % Eos % (Auto) % Baso % (Auto) % Immature Gran # (Auto) (0.00-0.02) K/uL Neut # (Auto) (1.4-6.5) K/uL Lymph # (Auto) (1.2-3.4) K/uL [place] # (Auto) (0.11-0.59) K/uL Eos # (Auto) (0-0.5) K/uL Baso # (Auto) (0-0.2) K/uL PT INR APTT PTT Ratio POC pH 7.26 L (7.35-7.45) POC pCO2 49 H (35-46) mmHg POC pO2 242 H (80-95) mmHg POC HCO3 22 (19-24) efren/L POC Total CO2 23 L (24-31) mEq/l POC Base Excess -5.0 (-9-1.8) efren/L POC ABG O2 Sat 100.0 H (90-95) % Sodium (136-145) mmol/L Potassium (3.5-5.1) mmol/L Chloride (98-107) mmol/L Carbon Dioxide (21-32) mmol/L Anion Gap (3-11) BUN (7-18) mg/dl Creatinine (0.6-1.2) mg/dl Est Cr Clr Drug Dosing ml/min Est GFR ( Amer) Est GFR (Non-Af Amer) BUN/Creatinine Ratio (10-20) Glucose (70-99) mg/dl Calcium (8.5-10.1) mg/dl Total Bilirubin (0.2-1) mg/dl AST (15-37) U/L ALT (12-78) U/L Alkaline Phosphatase (45-117) U/L Troponin I < 0.015 (0-0.045) ng/ml Total Protein (6.4-8.2) gm/dl Albumin (3.4-5.0) gm/dl Globulin (2.5-4.0) gm/dl Albumin/Globulin Ratio (0.9-2) Lipase (73-393) U/L Urine Color Urine Appearance (Clear) Urine pH (4.5-7.5) Ur Specific [place] (1.000-1.030) Urine Protein (Negative) Urine Glucose (UA) (Negative) Urine Ketones (Negative) Urine Blood (Negative) Urine Nitrite (Negative) Urine Bilirubin (Negative) Urine Urobilinogen (Negative) Ur Leukocyte Esterase (Negative) Urine WBC (Auto) (0-5) /hpf Urine RBC (Auto) (0-4) /hpf U Hyaline Cast (Auto) (0-5) /lpf U Epithel Cells (Auto) (0-5) /lpf Urine Bacteria (Auto) (Negative) Imaging Data Radiologist's Impression: Radiology results as stated below per my review and the radiologist's interpretation: XR chest 1V portable HISTORY: 78 years-old Female right flank pain acute right-sided flank pain COMPARISON: Chest CT 10/07/2017, chest radiograph 06/27/2017 TECHNIQUE: Portable AP view of the chest FINDINGS: Cardiac silhouette is enlarged, unchanged. Calcified plaque of the thoracic aorta, arch. Stable left subclavian pacer. No pneumothorax or large pleural effusion. Mild right hemidiaphragm elevation. Emphysema with chronic interstitial coarsening. Mildly progressive ill-defined right basilar opacities suggestive of probable atelectasis. Mild blunting of the right costophrenic angle. Degenerative changes of the shoulders and spine. IMPRESSION: 1. Cardiomegaly without acute process. 2. Emphysema with chronic interstitial coarsening. The above report was generated using voice recognition software. It may contain grammatical, syntax or spelling errors. Electronically signed by: Vivek Shankar M.D. 12/29/2018 2:30 PM A[address]OMEN AND PELVIS CT WITHOUT CONTRAST CT DOSE: 973.81 mGycm HISTORY: Acute right-sided flank pain right fank pain TECHNIQUE: Multiaxial CT images of the abdomen and pelvis were performed without contrast. A dose lowering technique was utilized adhering to the principles of ALARA. COMPARISON STUDY: CT abdomen and pelvis 08/03/2016 FINDINGS: Asymmetric linear subsegmental consolidative opacities of the right lung base suggest atelectasis/scarring. Trace pleural effusion with mild right lung base pleural thickening. There is mild bibasilar bronchial wall thickening. No pneumatosis or pneumoperitoneum. Imaged inferior cardiac chambers are moderately enlarged with partially imaged pacer leads. Moderate pneumobilia is new from prior suggestive of sphincterotomy. Intrahepatic and extrahepatic biliary ductal dilation is noted status post cholecystectomy. No obstructing biliary stone or lesion identified. Liver is otherwise unremarkable. Spleen, pancreas and right adrenal gland are unremarkable. Hyperdense 12 mm left adrenal gland lesion suggests adenoma. Kidneys, and ureters are unremarkable. Decompressed urinary bladder. No renal or ureteral calculi or obstructive uropathy. Mild prominence of the left fundal uterus is suggestive of uterine leiomyoma. No adnexal mass lesions. Calcified plaque the abdominal aorta without aneurysm. There is no adenopathy. Near- complete resolution of the remote right-sided retroperitoneal hematoma now measuring up to approximately 3.5 x 0.8 cm transverse and AP dimension. No bowel obstruction or bowel wall thickening. Colonic diverticulosis without acute diverticulitis. Terminal ileum is unremarkable. Noninflamed appendix. Soft tissues are unremarkable. Demineralized appearance the bones with degenerative changes of the spine, pelvis and hips. IMPRESSION: 1. No acute intra-abdominal or intrapelvic abnormality, specifically no renal or ureteral calculi or obstructive uropathy. 2. No bowel obstruction or bowel wall thickening. 3. Colonic diverticulosis without acute diverticulitis. 4. Cholecystectomy with pneumobilia compatible with prior sphincterotomy. 5. Cardiomegaly 6. Additional findings as above. Electronically signed by: Vivek Shankar M.D. 12/29/2018 3:56 PM ECG Data Attestation: I personally reviewed and interpreted this ECG as follows: Indication: + abdominal pain Rate (beats per minute): 72 Rhythm: + other (paced rhythm) ECG Findings: + Other (no koi beats, LVH noted by voltage criteria, suspect pacemaker failure with very prolonged interval) Blood Pressure Blood Pressure Findings: Elevated blood pressure Blood Pressure Disposition: further management by hospitalist PENELOPE Nowak The patient is an 78-year-old female who presented to the emergency department for an evaluation of abdominal pain. The patient describes right-sided abdominal pain which appears to be mostly in the right flank. The patient does have a history of cholecystectomy. The patient was initially treated with a small fluid bolus as well as IV pain medication. She was found to have an abnormal liver enzyme panel. Given her pain and her history of cholecystectomy she was treated with IV antibiotics. I discussed the patient's laboratory and radiographic studies with her and her family members. The patient started to develop significant respiratory distress. She was reevaluated and was found to have rales throughout with respiratory distress. She was moved to resuscitation room and was placed on BiPAP. The patient started to improve while she was in the emergency department. Repeat chest x-ray appears to be consistent with pulmonary edema. She was treated with IV Lasix and nitroglycerin paste. She continued to improve however given her change in symptoms I discussed her case again with the [facility] hospitalist group as well as the [facility]. The patient was evaluated in the emergency department by the admitting team. I discussed the patient's condition with her family members. They are aware that she is very ill at this time. Discharge Problem: Pulmonary edema Qualifiers: Chronicity: acute Qualified Code(s): J81.0 - Acute pulmonary edema The scribe's documentation has been prepared under my direction and personally reviewed by me in its entirety. I confirm that the note above accurately reflects all work, treatment, procedures, and medical decision making performed by me.
[2018-12-29 15:36] LABS: Basophils # (auto) 0.01 K/uL (0-0.2); Basophils % (auto) 0.1 %; Eosinophils # (auto) 0.03 K/uL (0-0.5); Eosinophils % (auto) 0.2 %; Hematocrit (blood only) 45.4 % (37-47); Hemoglobin 15.2 g/dL (12.0-16.0); Immature Granulocytes # (auto) 0.06 K/uL (0.00-0.02); Immature Granulocytes % (auto) 0.4 %; Lymphocytes # (auto) 0.47 K/uL (1.2-3.4); Lymphocytes % (auto) 3.2 %; Mean Corpuscular Hemoglobin 32.8 pg (25-34); Mean Corpuscular Hgb Conc 33.5 g/dL (32-36); Mean Corpuscular Volume 98.1 fL (80-100); Mean Platelet Volume 10.1 fL (7.4-10.4); Monocytes # (auto) 0.38 K/uL (0.11-0.59); Monocytes % (auto) 2.6 %; Neutrophils # (auto) 13.61 K/uL (1.4-6.5); Neutrophils % (auto) 93.5 %; Platelet Count 273 K/uL (130-400); RDW Coefficient of Variation 13.5 % (11.5-14.5); RDW Standard Deviation 47.8 fL (36.4-46.3); Red Blood Count 4.63 M/uL (4.2-5.4); White Blood Count 14.56 K/uL (4.8-10.8)
--- NOTE | 2018-12-29 15:57 | CT Scan Report ---
ABDOMEN AND PELVIS CT WITHOUT CONTRAST CT DOSE: 973.81 mGycm HISTORY: Acute right-sided flank pain right fank pain TECHNIQUE: Multiaxial CT images of the abdomen and pelvis were performed without contrast. A dose lo wering technique was utilized adhering to the principles of ALARA. COMPARISON STUDY: CT abdomen and pelvis 08/03/2016 FINDINGS: Asymmetric linear subsegmental consolidative opacities of the right lung base suggest atelectasis/sca rring. Trace pleural effusion with mild right lung base pleural thickening. There is mild bibasilar b ronchial wall thickening. No pneumatosis or pneumoperitoneum. Imaged inferior cardiac chambers are mo derately enlarged with partially imaged pacer leads. Moderate pneumobilia is new from prior suggestiv e of sphincterotomy. Intrahepatic and extrahepatic biliary ductal dilation is noted status post selina cystectomy. No obstructing biliary stone or lesion identified. Liver is otherwise unremarkable. Splee n, pancreas and right adrenal gland are unremarkable. Hyperdense 12 mm left adrenal gland lesion sugg ests adenoma. Kidneys, and ureters are unremarkable. Decompressed urinary bladder. No renal or ureteral calculi or obstructive uropathy. Mild prominence of the left fundal uterus is suggestive of uterine leiomyoma. N o adnexal mass lesions. Calcified plaque the abdominal aorta without aneurysm. There is no adenopathy . Near-complete resolution of the remote right-sided retroperitoneal hematoma now measuring up to spencer roximately 3.5 x 0.8 cm transverse and AP dimension. No bowel obstruction or bowel wall thickening. Colonic diverticulosis without acute diverticulitis. T erminal ileum is unremarkable. Noninflamed appendix. Soft tissues are unremarkable. Demineralized spencer earance the bones with degenerative changes of the spine, pelvis and hips. IMPRESSION: 1. No acute intra-abdominal or intrapelvic abnormality, specifically no renal or ureteral calculi or obstructive uropathy. 2. No bowel obstruction or bowel wall thickening. 3. Colonic diverticulosis without acute diverticulitis. 4. Cholecystectomy with pneumobilia compatible with prior sphincterotomy. 5. Cardiomegaly 6. Additional findings as above. Electronically signed by: Vivek Shankar M.D. 12/29/2018 3:56 PM
[2018-12-29 16:04] LABS: Appearance Urine Clear (Clear); Bacteria Urine Automated Negative (Negative); Blood Urine Negative (Negative); Color Urine Dark Yellow; Epithelial Cell Urine Auto 20-30 /lpf (0-5); Glucose Urine UA Negative (Negative); Ketones Urine Negative (Negative); Leukocyte Esterase Urine Trace (Negative); Nitrite Urine Negative (Negative); Protein Urine Negative (Negative); RBC Urine Automated 0-4 /hpf (0-4); Urobilinogen Urine Positive (Negative)
[2018-12-29 16:10] LABS: Alanine Aminotransferase 326 U/L (12-78); Albumin Globulin Ratio 0.8 (0.9-2); Albumin Level 3.9 gm/dl (3.4-5.0); Alkaline Phosphatase 325 U/L (45-117); BUN Creatinine Ratio 15.9 (10-20); Bilirubin,Total 2.9 mg/dl (0.2-1); Blood Urea Nitrogen 20 mg/dl (7-18); Calcium 10.5 mg/dl (8.5-10.1); Carbon Dioxide 25 mmol/L (21-32); Chloride 103 mmol/L (98-107); Creatinine Clr Calc Pharmacy 43.2 ml/min; Est GFR (African American) 45.7; Est GFR (Non-African American) 39.4; Globulin 4.8 gm/dl (2.5-4.0); Glucose 97 mg/dl (70-99); Lipase 150 U/L (73-393); Sodium 137 mmol/L (136-145); Total Protein 8.7 gm/dl (6.4-8.2); Troponin I < 0.015 ng/ml (0-0.045)
[2018-12-29 16:12] LABS: Bilirubin Urine 2+ (Negative)
[2018-12-29 16:13] LABS: Ictotest Urine Positive (Negative)
[2018-12-29 17:17] LABS: Partial Thromboplastin Ratio 0.9; Partial Thromboplastin Time 23.3 Seconds (21.0-31.0); Prothrombin Time 10.2 Seconds (9.0-12.0)
[2018-12-29] MEDS ORDERED: PIPERACILLIN/TAZOBACTAM 4.5 GM/120 ML BAG IV ONE (17:37)
[2018-12-29] MEDS ORDERED: PIPERACILL/TAZOBAC CONSULT ACTIVE PRN (17:37)
[2018-12-29] MEDS ORDERED: ALBUT/IPRATROP 3MG/0.5MG NEB 3 ML VIAL NEB STA (19:25)
[2018-12-29] MEDS ORDERED: FUROSEMIDE 60 MG in SYRINGE 0 ML IV ONE (19:38)
[2018-12-29] MEDS ORDERED: FUROSEMIDE 40 MG/4 ML VIAL IV ONE (19:39)
[2018-12-29] MEDS ORDERED: NITROGLYCERIN 2% OINTMENT 30GM TUBE EXT ONE (19:39)
[2018-12-29] MEDS ORDERED: NITROGLYCERIN 2% OINTMENT 30GM TUBE ONE (19:40)
--- NOTE | 2018-12-29 20:00 | XRay Report ---
XR chest 1V portable CLINICAL HISTORY: Shortness of breath. COMPARISON STUDY: Chest CT October 07, 2017. Chest radiograph performed earlier today. FINDINGS: Small right pleural effusion is noted. Dual lead left subclavian pacemaker is in place. The re is moderate cardiomegaly. A small right pleural effusion is noted. Mild pulmonary edema has develo ped. IMPRESSION: 1. Interval development of mild pulmonary edema. 2. Interval development of a small right pleural effusion. Electronically signed by: Piotr Ly M.D. 12/29/2018 7:59 PM
[2018-12-29 20:03] LABS: iSTAT Arterial Blood Gas HCO3 22 meg/L (19-24); iSTAT Arterial Blood Gas pCO2 49 mmHg (35-46); iSTAT Arterial Blood Gas pH 7.26 (7.35-7.45); iSTAT Arterial Blood Gas pO2 242 mmHg (80-95); iSTAT Carbon Dioxide 23 mEq/l (24-31)
[2018-12-29] MEDS: NITROGLYCERIN 2% OINTMENT 30GM TUBE EXT SCH (20:40)
[2018-12-29] MEDS ORDERED: ICU PROTOCOL FOR HYPERGLYCEMIA PRN (21:18)
--- NOTE | 2018-12-29 21:24 | Critical Care Consultation ---
Date of Consultation December 29, 2018 Assessment & Plan (1) Pulmonary edema: Reason Critically Ill: 78-year-old female who initially presented with a right upper quadrant abdominal pain in the ED and developed pulmonary edema requiring BiPAP Neuro - [facility] ICU: Negative Cardiac - CHFpatient currently takes daily Lasix is on fluid restriction -No knowledge of prior echo, will obtain, follow-up results -We will continue diuresis of Lasix for now -Currently n.p.o. but will continue fluid restriction during hospitalization, limit IV fluids -Continue to monitor on telemetry -Monitor daily weights Pacemaker/history of A. fibpatient is currently been in paced atrial rhythm -Patient is not anticoagulated, likely secondary to history of GI bleed -We will continue MTP -Continue monitoring on telemetry HTNpatient was hypertensive in the emergency department, now controlled with Nitropaste - continue home dose MTP -Monitor Respiratory - Hypercapnic respiratory failuremost likely secondary to flash pulmonary edema following IV fluid bolus as patient was asymptomatic initially on presentation and there are significant changes related pulmonary congestion between first and second chest x-rays. This is likely secondary to CHF, see management above. -will continue BiPAP overnight, patient wears CPAP at home with setting 7 cm H2O for [place]LE -will continue aggressive diuresis and monitor strict I's and O's -Initial ABG 7.25/49/242/21 -will follow-up morning CXR head ABG -Continue nebs -Continuous monitoring of oxygen saturation GI - Transaminitispatient reported right upper quadrant pain and tenderness, patient has history of cholecystectomy 2 years prior -CT of the abdomen was consistent with post cholecystectomy changes and did not show acute intra-abdominal or intrapelvic abnormalities, nearcomplete resolution of right-sided retroperitoneal hematoma -INR within normal limits, elevated total bilirubin 2.9 -We will obtain liver ultrasound in a.m. -Follow-up ammonia, hepatitis panel, acetaminophen level -Concern for cardia hepatic congestion versus infection -CHF management as above -will continue Zosyn for now -Trend LFTs RENAL/LYTES - CKDcreatinine stable from previous baseline -We will continue diuresis despite elevated creatinine, will monitor with routine BMPs Will monitor electrolytes and replete as necessary - Foleystrict I's and O's ENDO - Thyroidectomyfollow-up TSH, continue home dose Synthroid HEME - H&H stable, continue monitor with routine CBCs ID - Presumed sepsis started on empiric Zosyn in the ED for possible abdominal source, patient afebrile but had leukocytosis -Urinalysis unremarkable, no opacities consistent with pneumonia on initial chest x-ray -blood cultures pending, lactate pending LINES/IV ACCESS - Peripheral IVs DVT PROPHYLAXIS - SCDs I have personally spent 45 minutes of critical care time in the direct management of this patient. This is a life/limb threatening event. This includes time spent evaluating patient, direct bedside care, chart review, placing orders, interpretation of diagnostic studies, discussion with consultants, patient, and family members, as well as other required patient management activities. This time is exclusive of all separately billable procedures, and teaching time and separate from and in addition to any other critical care service time. Thank you for allowing us to participate in the care of this patient. Please refer to my attending physician's documentation for any further recommendations. (2) Respiratory acidosis: (3) Atrial fibrillation: (4) S/P cholecystectomy: (5) S/P thyroidectomy: (6) Elevated LFTs: (7) Right upper quadrant abdominal pain: (8) Hypertension: (9) Pacemaker: History of Present Illness Attending Physician: Abram Scott MD History of Present Illness Ms. Zhang is a 78-year-old female with past medical history of A. fib, pacemaker, HTN, GI bleed, thyroidectomy, cholecystectomy, [place] (CPAP at night) who presented to the emergency department with complaints of right upper quadrant abdominal pain 5/10. She was found to have transaminitis and CT abdomen showed no acute intra-abdominal or intrapelvic abnormality was consistent with cholecystectomy postsurgical changes. Patient was found to have cardiomegaly on CT exam. She had received 500 mL bolus and shortly after developed respiratory distress. Repeat chest x-ray revealed that the patient developed significant pulmonary congestion. She was placed on BiPAP and given 60 mg of Lasix IV with good result. She has since been transferred to the ICU for further management. On arrival to the ICU the patient is alert and oriented. She denies dizziness, syncope, shortness of breath, chest pain, nausea or vomiting. She still reports 5/10 right upper quadrant abdominal pain. Allergies Allergy/AdvReac Type Severity Reaction Status Date / Time No Known Allergies Allergy Unverified 12/29/18 17:14 Home Medications Home Medications Medication Instructions Recorded Confirmed Type acetaminophen 500 mg tablet 500 mg PO Q4H PRN 12/03/18 12/29/18 History aspirin 81 mg tablet,delayed 81 mg PO DAILY 12/03/18 12/29/18 History release cholecalciferol (vitamin D3) 5,000 5,000 units PO DAILY 12/03/18 12/29/18 History unit tablet furosemide 20 mg tablet 20 mg PO DAILY 12/03/18 12/29/18 History levalbuterol HFA 45 mcg/actuation 2 puffs INH Q4H PRN gm 12/03/18 12/29/18 History aerosol inhaler levothyroxine 88 mcg tablet 88 mcg PO DAILY 12/03/18 12/29/18 History metoprolol succinate ER 50 mg 50 mg PO DAILY 12/03/18 12/29/18 History tablet,extended release 24 hr potassium chloride ER 20 mEq 20 meq PO DAILY 12/03/18 12/29/18 History tablet,extended release(part/cryst) ropinirole 1 mg tablet 1 mg PO QPM tab 12/03/18 12/29/18 History famotidine 20 mg tablet 20 mg PO DAILY 12/16/18 12/29/18 History fluticasone fur. 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 Beliefs That Will Affect Care: None marital status: Current Living Situation: Alone current occupational status: retired Other Information That Helps Us Care for You: No Feels Safe at Home: Yes Safety Concerns: Feels Safe At This Time Smoking Status: Former smoker Tobacco Type: cigarettes ; Cigarettes Per Day: 20 ; Do You Dip or Chew Tobacco: No ; Smoking End Date: 2016 ; Second Hand Exposure: No ; Tobacco Cessation Education Requested by Patient: No Hx Alcohol Use: No Hx Substance Use: No Review of Systems Review of Systems: All systems reviewed & are unremarkable except as noted in HPI & below Physical Exam Eyes: PERRL, conjunctivae normal, anicteric sclerae ENMT: external ear and nose normal, oropharynx normal Neck: trachea midline, no thyromegaly Respiratory: Fine crackles auscultated bilaterally, nonlabored breathing on BiPAP Cardiovascular: RRR, no murmur, no edema Heart Sounds: normal S1 and normal S2 Vessels: + JVD Extremities: no edema Paced rhythm Gastrointestinal (Abdomen): Abdomen soft, nondistended, normal bowel sounds auscultated, abdominal tenderness this in right upper quadrant with light palpation Skin: no rashes, warm and dry Neurologic: PERRL, EOMI, accommodation nl, no face palsy, no dysarthria Psychiatric: Orientation: alert and oriented x 3 Genitourinary: Indwelling Sparks catheter Results & Data Vital Signs (Past 12 Hours) Vital Signs Temp Pulse Pulse Resp BP Pulse Ox 12/29/18 21:11 71 26 H 98 12/29/18 20:45 60 24 123/62 97 12/29/18 20:30 60 26 H 125/66 99 12/29/18 20:21 84 35 H 95 12/29/18 20:19 60 28 H 137/72 98 12/29/18 20:00 76 31 H 169/72 H 96 12/29/18 19:45 73 26 H 201/112 H 100 12/29/18 19:32 80 42 H 95 12/29/18 19:31 81 43 H 215/84 H 89 L 12/29/18 19:30 89 35 H 94 12/29/18 19:29 220/110 H 96 12/29/18 19:00 76 29 H 142/68 H 97 12/29/18 18:30 70 24 142/67 H 96 12/29/18 18:00 71 31 H 141/69 H 94 12/29/18 17:31 73 92 12/29/18 17:30 75 24 141/72 H 93 12/29/18 17:01 69 96 12/29/18 17:00 73 22 142/70 H 96 12/29/18 16:31 70 25 H 97 12/29/18 16:30 77 24 129/68 96 12/29/18 16:01 73 24 90 12/29/18 16:00 62 19 133/70 90 12/29/18 15:48 75 20 134/78 90 12/29/18 15:47 78 20 12/29/18 15:00 74 22 12/29/18 14:29 36.5 C 80 16 157/73 H 95 12/29/18 14:17 95 Laboratory Results Laboratory Results - last 24 hr 12/29/18 12/29/18 12/29/18 15:19 15:19 15:19 WBC 14.56 H RBC 4.63 Hgb 15.2 Hct 45.4 MCV 98.1 MCH 32.8 MCHC 33.5 RDW Std Deviation 47.8 H RDW Coeff of Agusto 13.5 Plt Count 273 MPV 10.1 Immature Gran % (Auto) 0.4 Neut % (Auto) 93.5 Lymph % (Auto) 3.2 [place] % (Auto) 2.6 Eos % (Auto) 0.2 Baso % (Auto) 0.1 Immature Gran # (Auto) 0.06 H Neut # (Auto) 13.61 H Lymph # (Auto) 0.47 L [place] # (Auto) 0.38 Eos # (Auto) 0.03 Baso # (Auto) 0.01 PT Cancelled INR Cancelled APTT Cancelled PTT Ratio Cancelled POC pH POC pCO2 POC pO2 POC HCO3 POC Total CO2 POC Base Excess POC ABG O2 Sat Sodium 137 Potassium Chloride 103 Carbon Dioxide 25 Anion Gap 9.0 BUN 20 H Creatinine 1.28 H Est Cr Clr Drug Dosing 43.2 Est GFR ( Amer) 45.7 Est GFR (Non-Af Amer) 39.4 BUN/Creatinine Ratio 15.9 Glucose 97 Calcium 10.5 H Total Bilirubin 2.9 H AST ALT 326 H Alkaline Phosphatase 325 H Troponin I < 0.015 Total Protein 8.7 H Albumin 3.9 Globulin 4.8 H Albumin/Globulin Ratio 0.8 L Lipase 150 Urine Color Urine Appearance Urine pH Ur Specific [place] Urine Protein Urine Glucose (UA) Urine Ketones Urine Blood Urine Nitrite Urine Bilirubin Urine Urobilinogen Ur Leukocyte Esterase Urine WBC (Auto) Urine RBC (Auto) U Hyaline Cast (Auto) U Epithel Cells (Auto) Urine Bacteria (Auto) Nasal Screen MRSA (PCR) 12/29/18 12/29/18 12/29/18 15:34 16:50 16:50 WBC RBC Hgb Hct MCV MCH MCHC RDW Std Deviation RDW Coeff of Agusto Plt Count MPV Immature Gran % (Auto) Neut % (Auto) Lymph % (Auto) [place] % (Auto) Eos % (Auto) Baso % (Auto) Immature Gran # (Auto) Neut # (Auto) Lymph # (Auto) [place] # (Auto) Eos # (Auto) Baso # (Auto) PT 10.2 INR 1.0 APTT 23.3 PTT Ratio 0.9 POC pH POC pCO2 POC pO2 POC HCO3 POC Total CO2 POC Base Excess POC ABG O2 Sat Sodium Potassium 4.0 Chloride Carbon Dioxide Anion Gap BUN Creatinine Est Cr Clr Drug Dosing Est GFR ( Amer) Est GFR (Non-Af Amer) BUN/Creatinine Ratio Glucose Calcium Total Bilirubin AST 485 H ALT Alkaline Phosphatase Troponin I Total Protein Albumin Globulin Albumin/Globulin Ratio Lipase Urine Color Dark Yellow Urine Appearance Clear Urine pH 7.0 Ur Specific [place] 1.020 Urine Protein Negative Urine Glucose (UA) Negative Urine Ketones Negative Urine Blood Negative Urine Nitrite Negative Urine Bilirubin 2+ H Urine Urobilinogen Positive H Ur Leukocyte Esterase Trace H Urine WBC (Auto) 1-5 Urine RBC (Auto) 0-4 U Hyaline Cast (Auto) 1-5 U Epithel Cells (Auto) 20-30 H Urine Bacteria (Auto) Negative Nasal Screen MRSA (PCR) 12/29/18 12/29/18 12/29/18 16:50 19:45 21:16 WBC RBC Hgb Hct MCV MCH MCHC RDW Std Deviation RDW Coeff of Agusto Plt Count MPV Immature Gran % (Auto) Neut % (Auto) Lymph % (Auto) [place] % (Auto) Eos % (Auto) Baso % (Auto) Immature Gran # (Auto) Neut # (Auto) Lymph # (Auto) [place] # (Auto) Eos # (Auto) Baso # (Auto) PT INR APTT PTT Ratio POC pH 7.26 L POC pCO2 49 H POC pO2 242 H POC HCO3 22 POC Total CO2 23 L POC Base Excess -5.0 POC ABG O2 Sat 100.0 H Sodium Potassium Chloride Carbon Dioxide Anion Gap BUN Creatinine Est Cr Clr Drug Dosing Est GFR ( Amer) Est GFR (Non-Af Amer) BUN/Creatinine Ratio Glucose Calcium Total Bilirubin AST ALT Alkaline Phosphatase Troponin I < 0.015 Total Protein Albumin Globulin Albumin/Globulin Ratio Lipase Urine Color Urine Appearance Urine pH Ur Specific [place] Urine Protein Urine Glucose (UA) Urine Ketones Urine Blood Urine Nitrite Urine Bilirubin Urine Urobilinogen Ur Leukocyte Esterase Urine WBC (Auto) Urine RBC (Auto) U Hyaline Cast (Auto) U Epithel Cells (Auto) Urine Bacteria (Auto) Nasal Screen MRSA (PCR) Pending Medications Administered Home Medications acetaminophen 500 mg tablet 500 mg PO Q4H PRN 12/03/18 [History Confirmed 12/29/18] aspirin 81 mg tablet,delayed release 81 mg PO DAILY 12/03/18 [History Confirmed 12/29/18] cholecalciferol (vitamin D3) 5,000 unit tablet 5,000 units PO DAILY 12/03/18 [History Confirmed 12/29/18] furosemide 20 mg tablet 20 mg PO DAILY 12/03/18 [History Confirmed 12/29/18] levalbuterol HFA 45 mcg/actuation aerosol inhaler 2 puffs INH Q4H PRN gm 12/03/18 [History Confirmed 12/29/18] levothyroxine 88 mcg tablet 88 mcg PO DAILY 12/03/18 [History Confirmed 12/29/18] metoprolol succinate ER 50 mg tablet,extended release 24 hr 50 mg PO DAILY 12/03/18 [History Confirmed 12/29/18] potassium chloride ER 20 mEq tablet,extended release(part/cryst) 20 meq PO DAILY 12/03/18 [History Confirmed 12/29/18] ropinirole 1 mg tablet 1 mg PO QPM tab 12/03/18 [History Confirmed 12/29/18] famotidine 20 mg tablet 20 mg PO DAILY 12/16/18 [History Confirmed 12/29/18] fluticasone fur. 100 mcg-umeclid 62.5 mcg-vilant 25 mcg inhalat.powder 1 puffs INH DAILY #60 ea 12/16/18 [Rx Confirmed 12/29/18] gabapentin 100 mg capsule 100 mg PO DAILY 12/16/18 [History Confirmed 12/29/18] Active Medications Aspirin (Ecotrin Ectab) 81 mg PO DAILY JENNIFER Stop: 01/29/19 08:59 Heparin Sodium (Porcine) (Heparin Sodium (Porcine)) 5,000 units SQ Q8 JENNIFER Stop: 01/28/19 21:59 Last Admin: 12/29/18 21:46 Dose: 5,000 units Documented by: Famotidine 20 mg/ Syringe 5 mls @ 2.5 mls/min IV Q12 JENNIFER Stop: 01/28/19 21:17 Last Admin: 12/29/18 21:45 Dose: 2.5 mls/min Documented by: Furosemide 60 mg/ Syringe 6 mls @ 4 mls/min IV BID JENNIFER Stop: 01/28/19 21:17 Last Admin: 12/29/18 21:46 Dose: 4 mls/min Documented by: Piperacillin Sod/Tazobactam (Sod 3.375 gm/ Dextrose) 115 mls @ 28.75 mls/hr IV Q8H JENNIFER; Protocol Stop: 01/09/19 00:00 Ipratropium [place] (Atrovent 0.02% 0.5mg/2.5ml) 0.5 mg INH Q4R JENNIFER Stop: 01/28/19 22:59 Levalbuterol HCl (Xopenex 0.63 Mg/3 Ml Neb) 0.63 mg INH Q4R JENNIFER Stop: 01/28/19 22:59 Levothyroxine Sodium (Synthroid) 88 mcg PO DAILYBB JENNIFER Stop: 01/29/19 06:29 Miscellaneous (Icu Protocol For Hyperglycemia) 1 ea N/A PRN PRN; Protocol PRN Reason: Hyperglycemia Protocol Stop: 12/31/18 21:17 Miscellaneous Information (Consult) 1 ea N/A UD PRN PRN Reason: Consult Stop: 01/28/19 17:36 Nitroglycerin (Nitro-Bid 2%) 1 inch EXT Q6 JENNIFER Stop: 01/28/19 19:59 Last Admin: 12/29/18 20:40 Dose: Not Given Documented by: Coding Level of Care Code Critical Care 1st 30-74 mins Diagnoses Atrial fibrillation I48.91 S/P cholecystectomy Z90.49 S/P thyroidectomy Z98.890 Respiratory acidosis E87.2 Elevated LFTs R94.5 Pulmonary edema J81.0 Chronicity: acute Right upper quadrant abdominal pain R10.11 Hypertension I10 Pacemaker Z95.0 (1) Pulmonary edema Chronicity: acute Qualified Code(s): J81.0 - Acute pulmonary edema
[2018-12-29] MEDS: FAMOTIDINE 20 MG in SYRINGE 3 ML IV SCH (21:45)
[2018-12-29] MEDS: FUROSEMIDE 60 MG in SYRINGE 0 ML IV SCH (21:46)
[2018-12-29] MEDS: HEPARIN SOD 5,000 UNIT/0.5 ML VIAL SQ SCH (21:46)
[2018-12-29] MEDS: LEVALBUTEROL HCL 0.63 MG/3 ML NEB INH SCH (22:04)
[2018-12-29] MEDS: IPRATROPIUM BROMIDE NEB SOLN 0.02% 2.5 ML VIAL INH SCH (22:04)
--- NOTE | 2018-12-29 22:30 | History & Physical Report ---
Date of Service December 29, 2018 Assessment & Plan (1) Admitted to intensive care unit: The patient is admitted to the ICU with acute respiratory failure with hypoxia and hypercapnia. Present on Admission?: Yes (2) Acute respiratory failure with hypoxia and hypercapnia: Likely due to flash pulmonary edema, but also may be an element of COPD exacerbation. Given Lasix 60 mg IV in the ED, Nitropaste 1 inch to the anterior chest wall, and placed on BiPAP 12/5 with 100%, then decreased to 40%. Continue Lasix 60 mg IV twice daily. Serial chest x-rays and ABGs. Continue BiPAP as above. Present on Admission?: Yes (3) Elevated LFTs: CT negative for structural change. May be secondary to passive edema. Follow serial LFTs. Present on Admission?: Yes (4) Pulmonary edema: Acute pulmonary edema as noted above and will treat with Lasix IV. Order an echocardiogram and follow serial troponins. Present on Admission?: Yes (5) Atrial fibrillation: Atrial fibrillation/pacemaker- Holding oral metoprolol succinate ER 50 mg at this point while on BiPAP. Placed on IV Lopressor. Present on Admission?: Yes (6) Hypertension: As above. Present on Admission?: Yes (7) Restless leg syndrome: Holding ropinirole for now while n.p.o. Present on Admission?: Yes (8) Hypothyroidism associated with surgical procedure: On levothyroxine 80 mcg p.o. daily. If remains n.p.o. for more than 1 to 2 days, will will place on half dose IV. Present on Admission?: Yes (9) GERD (gastroesophageal reflux disease): Change famotidine to 20 mg IV every 12 hours Present on Admission?: Yes (10) COPD (chronic obstructive pulmonary disease): Xopenex and Atrovent nebulizers every 4 hours. She was given Zosyn IV in the ED. Unclear if infectious component. Present on Admission?: Yes History of Present Illness Chief Complaint: The patient presented to the emergency department with complaint of worsening abdominal pain that began earlier in the morning. Primary Care Provider: Lg Rodriguez The patient is a 78-year-old female with a past medical history including atrial fibrillation, hypertension, pacemaker, restless leg syndrome, GI bleeding, retroperitoneal bleed, pulmonary edema and status post thyroidectomy, who presents to the emergency department with the acute onset of worsening abdominal pain that began early in the morning, while at a hair appointment. The pain initially began in her abdomen, and radiated to her back. She is status post cholecystectomy. While in the emergency department, the patient became acutely short of breath, developed flash pulmonary edema, was placed on BiPAP with improved oxygenation and improved respiratory acidosis, and is not being admitted to the ICU for further treatment. Allergies Allergy/AdvReac Type Severity Reaction Status Date / Time No Known Allergies Allergy Unverified 12/29/18 17:14 Home Medications Home Medications Medication Instructions Recorded Confirmed Type acetaminophen 500 mg tablet 500 mg PO Q4H PRN 12/03/18 12/29/18 History aspirin 81 mg tablet,delayed 81 mg PO DAILY 12/03/18 12/29/18 History release cholecalciferol (vitamin D3) 5,000 5,000 units PO DAILY 12/03/18 12/29/18 History unit tablet furosemide 20 mg tablet 20 mg PO DAILY 12/03/18 12/29/18 History levalbuterol HFA 45 mcg/actuation 2 puffs INH Q4H PRN gm 12/03/18 12/29/18 History aerosol inhaler levothyroxine 88 mcg tablet 88 mcg PO DAILY 12/03/18 12/29/18 History metoprolol succinate ER 50 mg 50 mg PO DAILY 12/03/18 12/29/18 History tablet,extended release 24 hr potassium chloride ER 20 mEq 20 meq PO DAILY 12/03/18 12/29/18 History tablet,extended release(part/cryst) ropinirole 1 mg tablet 1 mg PO QPM tab 12/03/18 12/29/18 History famotidine 20 mg tablet 20 mg PO DAILY 12/16/18 12/29/18 History fluticasone fur. 100 mcg-umeclid 1 puffs INH DAILY #60 ea 12/16/18 12/29/18 Rx 62.5 mcg-vilant 25 mcg inhalat.powder gabapentin 100 mg capsule 100 mg PO DAILY 12/16/18 12/29/18 History Past Med/Surg History Medical History Atrial fibrillation (Chronic) Restless leg syndrome (Chronic) Hypertension (Chronic) Pacemaker (Chronic) Surgical History S/P thyroidectomy (Resolved) S/P cholecystectomy (Resolved) Social History Preferred Language: Italian marital status: current occupational status: retired Feels Safe at Home: Yes Smoking Status: Never smoker Review of Systems Review of Systems: Review of systems is limited other than as above due to patient status Physical Exam Physical Exam: The patient is awake, responsive, wearing BiPAP mask, normocephalic and atraumatic, lying in bed and in no moderate respiratory distress. HEENT--PERRL, EOMI, mucous membranes and oropharynx dry. Neck--supple. No JVD. No bruits. Thyroid normal, trachea midline, no adenopathy. Heart--normal S1 and S2. No murmurs, rubs or gallops. Lungs--coarse breath sounds bilaterally and wheezes throughout. Abdomen--normal bowel sounds and soft. Obese Extremities--no cyanosis or clubbing. No edema. Dermatologic--normal skin turgor, normal color, no abnormal lymph nodes, no rash. Neurologic--cranial nerves II through XII grossly intact. Rheumatologic--normal range of motion. Psychiatric--lethargic Results & Data Vital Signs (Past 12 Hours) Vital Signs Temp Pulse Pulse Resp BP Pulse Ox 12/29/18 21:11 71 26 H 98 12/29/18 20:45 60 24 123/62 97 12/29/18 20:30 60 26 H 125/66 99 12/29/18 20:21 84 35 H 95 12/29/18 20:19 60 28 H 137/72 98 12/29/18 20:00 76 31 H 169/72 H 96 12/29/18 19:45 73 26 H 201/112 H 100 12/29/18 19:32 80 42 H 95 12/29/18 19:31 81 43 H 215/84 H 89 L 12/29/18 19:30 89 35 H 94 12/29/18 19:29 220/110 H 96 12/29/18 19:00 76 29 H 142/68 H 97 12/29/18 18:30 70 24 142/67 H 96 12/29/18 18:00 71 31 H 141/69 H 94 12/29/18 17:31 73 92 12/29/18 17:30 75 24 141/72 H 93 12/29/18 17:01 69 96 12/29/18 17:00 73 22 142/70 H 96 12/29/18 16:31 70 25 H 97 12/29/18 16:30 77 24 129/68 96 12/29/18 16:01 73 24 90 12/29/18 16:00 62 19 133/70 90 12/29/18 15:48 75 20 134/78 90 12/29/18 15:47 78 20 12/29/18 15:00 74 22 12/29/18 14:29 97.7 F 80 16 157/73 H 95 12/29/18 14:17 95 Laboratory Results Laboratory Results WBC 14.56 K/uL (4.8-10.8) H 12/29/18 15:19 RBC 4.63 M/uL (4.2-5.4) 12/29/18 15:19 Hgb 15.2 g/dL (12.0-16.0) 12/29/18 15:19 Hct 45.4 % (37-47) 12/29/18 15:19 MCV 98.1 fL (80-100) 12/29/18 15:19 MCH 32.8 pg (25-34) 12/29/18 15:19 MCHC 33.5 g/dL (32-36) 12/29/18 15:19 RDW Std Deviation 47.8 fL (36.4-46.3) H 12/29/18 15:19 RDW Coeff of Agusto 13.5 % (11.5-14.5) 12/29/18 15:19 Plt Count 273 K/uL (130-400) 12/29/18 15:19 MPV 10.1 fL (7.4-10.4) 12/29/18 15:19 Immature Gran % (Auto) 0.4 % 12/29/18 15:19 Neut % (Auto) 93.5 % 12/29/18 15:19 Lymph % (Auto) 3.2 % 12/29/18 15:19 [place] % (Auto) 2.6 % 12/29/18 15:19 Eos % (Auto) 0.2 % 12/29/18 15:19 Baso % (Auto) 0.1 % 12/29/18 15:19 Immature Gran # (Auto) 0.06 K/uL (0.00-0.02) H 12/29/18 15:19 Neut # (Auto) 13.61 K/uL (1.4-6.5) H 12/29/18 15:19 Lymph # (Auto) 0.47 K/uL (1.2-3.4) L 12/29/18 15:19 [place] # (Auto) 0.38 K/uL (0.11-0.59) 12/29/18 15:19 Eos # (Auto) 0.03 K/uL (0-0.5) 12/29/18 15:19 Baso # (Auto) 0.01 K/uL (0-0.2) 12/29/18 15:19 PT 10.2 Seconds (9.0-12.0) 12/29/18 16:50 INR 1.0 (0.9-1.1) 12/29/18 16:50 APTT 23.3 Seconds (21.0-31.0) 12/29/18 16:50 PTT Ratio 0.9 12/29/18 16:50 POC pH 7.26 (7.35-7.45) L 12/29/18 19:45 POC pCO2 49 mmHg (35-46) H 12/29/18 19:45 POC pO2 242 mmHg (80-95) H 12/29/18 19:45 POC HCO3 22 efren/L (19-24) 12/29/18 19:45 POC Total CO2 23 mEq/l (24-31) L 12/29/18 19:45 POC Base Excess -5.0 efren/L (-9-1.8) 12/29/18 19:45 POC ABG O2 Sat 100.0 % (90-95) H 12/29/18 19:45 Sodium 137 mmol/L (136-145) 12/29/18 15:19 Potassium 4.0 mmol/L (3.5-5.1) 12/29/18 16:50 Chloride 103 mmol/L (98-107) 12/29/18 15:19 Carbon Dioxide 25 mmol/L (21-32) 12/29/18 15:19 Anion Gap 9.0 (3-11) 12/29/18 15:19 BUN 20 mg/dl (7-18) H 12/29/18 15:19 Creatinine 1.28 mg/dl (0.6-1.2) H 12/29/18 15:19 Est Cr Clr Drug Dosing 43.2 ml/min 12/29/18 15:19 Est GFR ( Amer) 45.7 12/29/18 15:19 Est GFR (Non-Af Amer) 39.4 12/29/18 15:19 BUN/Creatinine Ratio 15.9 (10-20) 12/29/18 15:19 Glucose 97 mg/dl (70-99) 12/29/18 15:19 Calcium 10.5 mg/dl (8.5-10.1) H 12/29/18 15:19 Total Bilirubin 2.9 mg/dl (0.2-1) H 12/29/18 15:19 AST 485 U/L (15-37) H 12/29/18 16:50 ALT 326 U/L (12-78) H 12/29/18 15:19 Alkaline Phosphatase 325 U/L (45-117) H 12/29/18 15:19 Troponin I < 0.015 ng/ml (0-0.045) 12/29/18 16:50 Total Protein 8.7 gm/dl (6.4-8.2) H 12/29/18 15:19 Albumin 3.9 gm/dl (3.4-5.0) 12/29/18 15:19 Globulin 4.8 gm/dl (2.5-4.0) H 12/29/18 15:19 Albumin/Globulin Ratio 0.8 (0.9-2) L 12/29/18 15:19 Lipase 150 U/L (73-393) 12/29/18 15:19 Urine Color Dark Yellow 12/29/18 15:34 Urine Appearance Clear (Clear) 12/29/18 15:34 Urine pH 7.0 (4.5-7.5) 12/29/18 15:34 Ur Specific [place] 1.020 (1.000-1.030) 12/29/18 15:34 Urine Protein Negative (Negative) 12/29/18 15:34 Urine Glucose (UA) Negative (Negative) 12/29/18 15:34 Urine Ketones Negative (Negative) 12/29/18 15:34 Urine Blood Negative (Negative) 12/29/18 15:34 Urine Nitrite Negative (Negative) 12/29/18 15:34 Urine Bilirubin 2+ (Negative) H 12/29/18 15:34 Urine Urobilinogen Positive (Negative) H 12/29/18 15:34 Ur Leukocyte Esterase Trace (Negative) H 12/29/18 15:34 Urine WBC (Auto) 1-5 /hpf (0-5) 12/29/18 15:34 Urine RBC (Auto) 0-4 /hpf (0-4) 12/29/18 15:34 U Hyaline Cast (Auto) 1-5 /lpf (0-5) 12/29/18 15:34 U Epithel Cells (Auto) 20-30 /lpf (0-5) H 12/29/18 15:34 Urine Bacteria (Auto) Negative (Negative) 12/29/18 15:34 Diagnostic Findings [place], [place] [phone] CT Scan Report Patient: PREETI JONES Date: 12/29/18 MR#: [id number]: [address] Acct ID:[id number]: Date: 1940City Zip: [place] [address] Age: 78Location: ED Sex: F Room/Bed: Att Phy:Diagnosis: ABDOMINAL PAIN Lexie Phy: Lg Rodriguez MDService Date: 12/29/18 Fam Phy:Interpreting Phy: Wilian Shankar Admit Phy: Ordering Phy: Yohannes De Los Santos DO cc: ~ ABDOMEN AND PELVIS CT WITHOUT CONTRAST CT DOSE: 973.81 mGycm HISTORY: Acute right-sided flank pain right fank pain TECHNIQUE: Multiaxial CT images of the abdomen and pelvis were performed without contrast. A dose lowering technique was utilized adhering to the principles of ALARA. COMPARISON STUDY: CT abdomen and pelvis 08/03/2016 FINDINGS: Asymmetric linear subsegmental consolidative opacities of the right lung base suggest atelectasis/scarring. Trace pleural effusion with mild right lung base pleural thickening. There is mild bibasilar bronchial wall thickening. No pneumatosis or pneumoperitoneum. Imaged inferior cardiac chambers are moderately enlarged with partially imaged pacer leads. Moderate pneumobilia is new from prior suggestive of sphincterotomy. Intrahepatic and extrahepatic biliary ductal dilation is noted status post cholecystectomy. No obstructing biliary stone or lesion identified. Liver is otherwise unremarkable. Spleen, pancreas and right adrenal gland are unremarkable. Hyperdense 12 mm left adrenal gland lesion roy ggests adenoma. Kidneys, and ureters are unremarkable. Decompressed urinary bladder. No renal or ureteral calculi or obstructive uropathy. Mild prominence of the left fundal uterus is suggestive of uterine leiomyoma. No adnexal mass lesions. Calcified plaque the abdominal aorta without aneurysm. There is no adenopathy. Near- complete resolution of the remote right-sided retroperitoneal hematoma now measuring up to approximately 3.5 x 0.8 cm transverse and AP dimension. No bowel obstruction or bowel wall thickening. Colonic diverticulosis without acute diverticulitis. Terminal ileum is unremarkable. Noninflamed appendix. Soft tissues are unremarkable. Demineralized appearance the bones with degenerative changes of the spine, pelvis and hips. IMPRESSION: 1. No acute intra-abdominal or intrapelvic abnormality, specifically no renal or ureteral calculi or obstructive uropathy. 2. No bowel obstruction or bowel wall thickening. 3. Colonic diverticulosis without acute diverticulitis. 4. Cholecystectomy with pneumobilia compatible with prior sphincterotomy. 5. Cardiomegaly 6. Additional findings as above. Electronically signed by: Vivek Shankar M.D. 12/29/2018 3:56 PM Dictated: 12/29/18 1544 Transcribed: 12/29/18 1544 [facility] [place] [phone] XRay Report Patient: PREETI JONES Date: 12/29/18 MR#: [id number]: [address] Acct ID:[id number]: [facility]: 1940[facility] Zip: [place] [address] Age: 78Location: ED Sex: F Room/Bed: Att Phy:Diagnosis: ABDOMINAL PAIN Lexie Phy: Lg Rodriguez MDService Date: 12/29/18 Fam Phy:Interpreting Phy: Wilian Shankar Admit Phy: Ordering Phy: Yohannes De Los Santos DO cc: ~ XR chest 1V portable HISTORY: 78 years-old Female right flank pain acute right-sided flank pain COMPARISON: Chest CT 10/07/2017, chest radiograph 06/27/2017 TECHNIQUE: Portable AP view of the chest FINDINGS: Cardiac silhouette is enlarged, unchanged. Calcified plaque of the thoracic aorta, arch. Stable left subclavian pacer. No pneumothorax or large pleural effusion. Mild right hemidiaphragm elevation. Emphysema with chronic interstitial coarsening. Mildly progressive ill-defined right basilar opacities suggestive of probable atelectasis. Mild blunting of the right costophrenic angle. Degenerative changes of the shoulders and spine. IMPRESSION: 1. Cardiomegaly without acute process. 2. Emphysema with chronic interstitial coarsening. The above report was generated using voice recognition software. It may contain grammatical, syntax or spelling errors. Electronically signed by: Vivek Shankar M.D. 12/29/2018 2:30 PM Dictated: 12/29/181427 Transcribed: 12/29/181427 [place], [place] [phone] XRay Report Patient: PREETI JONES Date: 12/29/18 MR#: [id number]: [address] Acct ID:[id number]: Date: 1940City Zip: [place] [address] Age: 78Location: ED Sex: F Room/Bed: Att Phy:Diagnosis: ABDOMINAL PAIN Lexie Phy: Lg Rodriguez MDService Date: 12/29/18 [facility] Phy:Interpreting Phy: Piotr Ly MD Admit Phy: Ordering Phy: Yohannes De Los Santos DO cc: ~ XR chest 1V portable CLINICAL HISTORY: Shortness of breath. COMPARISON STUDY: Chest CT October 07, 2017. Chest radiograph performed earlier today. FINDINGS: Small right pleural effusion is noted. Dual lead left subclavian pacemaker is in place. There is moderate cardiomegaly. A small right pleural effusion is noted. Mild pulmonary edema has developed. IMPRESSION: 1. Interval development of mild pulmonary edema. 2. Interval development of a small right pleural effusion. Electronically signed by: Piotr Ly M.D. 12/29/2018 7:59 PM Dictated: 12/29/181956 Transcribed: 12/29/181956 Code Status & VTE Plan Code Status Full code VTE Prophylaxis Plan VTE Prophylaxis will be ordered: Yes Critical Care Time Critical Care Time: Yes Total Critical Care Time: 50 Total critical care time was 50 minutes PG Care Time/CCT Total # of Minutes Spent Total Time Spent with Patient: Total time spent is greater than 50% in coordination of care (as documented) at patient's floor/unit and/or counseling patient: Critical Care Time: Yes Total Critical Care Time: 50 (1) Pulmonary edema Chronicity: acute Qualified Code(s): J81.0 - Acute pulmonary edema
[2018-12-30 00:10] LABS: Hepatitis B Surface Antigen Neg (Neg)
[2018-12-30] MEDS: PIPERACILLIN/TAZOBACTAM 3.375 GM in DEXTROSE 5% 100 ML IV SCH ×4 (00:18→23:31)
[2018-12-30 00:38] LABS: Hepatitis C IgG 13Yrs+Old_Rflx Neg (Neg)
[2018-12-30] MEDS: IPRATROPIUM BROMIDE NEB SOLN 0.02% 2.5 ML VIAL INH SCH ×6 (01:40→23:38)
[2018-12-30] MEDS: LEVALBUTEROL HCL 0.63 MG/3 ML NEB INH SCH ×6 (01:40→23:38)
[2018-12-30] MEDS: fentaNYL citrate 100 MCG/2 ML VIAL IV PRN ×4 (02:40→09:45)
[2018-12-30 05:02] LABS: Basophils # (auto) 0.02 K/uL (0-0.2); Basophils % (auto) 0.1 %; Hematocrit (blood only) 41.3 % (37-47); Hemoglobin 13.8 g/dL (12.0-16.0); Immature Granulocytes # (auto) 0.06 K/uL (0.00-0.02); Immature Granulocytes % (auto) 0.3 %; Lymphocytes # (auto) 0.45 K/uL (1.2-3.4); Lymphocytes % (auto) 2.2 %; Mean Corpuscular Hemoglobin 32.3 pg (25-34); Mean Corpuscular Hgb Conc 33.4 g/dL (32-36); Mean Corpuscular Volume 96.7 fL (80-100); Mean Platelet Volume 9.9 fL (7.4-10.4); Monocytes % (auto) 3.8 %; Neutrophils # (auto) 19.53 K/uL (1.4-6.5); Neutrophils % (auto) 93.6 %; Platelet Count 228 K/uL (130-400); RDW Coefficient of Variation 13.5 % (11.5-14.5); RDW Standard Deviation 47.2 fL (36.4-46.3); Red Blood Count 4.27 M/uL (4.2-5.4); White Blood Count 20.86 K/uL (4.8-10.8)
[2018-12-30 05:24] LABS: BUN Creatinine Ratio 13.8 (10-20); Bilirubin Direct 4.9 mg/dl (0-0.2); Calcium 9.4 mg/dl (8.5-10.1); Creatinine Clr Calc Pharmacy 29.6 ml/min; Est GFR (African American) 31.5; Est GFR (Non-African American) 27.2
[2018-12-30 05:41] LABS: Bilirubin,Total 6.2 mg/dl (0.2-1); Thyroid Stimulating Hormone 1.32 uIu/ml (0.300-4.500); Total Protein 6.9 gm/dl (6.4-8.2)
[2018-12-30 05:50] LABS: INR 1.2 (0.9-1.1); Partial Thromboplastin Time 26.8 Seconds (21.0-31.0); Prothrombin Time 11.7 Seconds (9.0-12.0)
[2018-12-30] MEDS: HEPARIN SOD 5,000 UNIT/0.5 ML VIAL SQ SCH ×3 (06:03→22:19)
[2018-12-30] MEDS ORDERED: LEVOTHYROXINE SODIUM 88 MCG TABLET PO SCH (06:30)
[2018-12-30 06:31] LABS: Base Excess ABG 1.7 mEq/L (-9-1.8); HCO3 ABG 25 mmol/L (19-24); PCO2 ABG 35 mmHg (35-46); PO2 ABG 104 mm/Hg (80-95); pH ABG 7.47 (7.35-7.45)
[2018-12-30 06:32] LABS: Allen Test Pos (Pos)
--- NOTE | 2018-12-30 07:03 | Ultrasound Report ---
US liver HISTORY: 78 years-old Female Transaminitis acutely elevated LFTs COMPARISON: CT abdomen and pelvis 12/29/2018 TECHNIQUE: Multiple real-time sonographic images of the abdominal right upper quadrant were obtained assessing grayscale appearance and color flow FINDINGS: Visualized pancreas is unremarkable. Increased echogenicity of the liver suggests hepatic steatosis. Hepatopedal flow noted within the portal vein. Mild nodular contour of the liver. Pneumobilia describ ed on CT is not definitively appreciated by ultrasound. Dilated common bile duct, 1.7 cm is noted wit h stone versus layering debris within the distal common bile duct. Mild intrahepatic biliary ductal d ilation. Cholecystectomy. Cortical thinning noted throughout the right kidney. IMPRESSION: 1. Cholecystectomy with intrahepatic and extrahepatic biliary ductal dilation. Additionally there is suggested choledocholithiasis. Correlate with laboratory analysis to assess for obstructive process. 2. Hepatic steatosis with mild marginal nodularity of the liver. Correlate clinically to exclude cirr hosis. The above report was generated using voice recognition software. It may contain grammatical, syntax o r spelling errors. Electronically signed by: Vivek Shankar M.D. 12/30/2018 7:01 AM
--- NOTE | 2018-12-30 07:20 | XRay Report ---
XR chest 1V portable HISTORY: 78 years-old Female resp failure acute respiratory failure COMPARISON: Chest radiograph 12/29/[address] abdomen and pelvis 12/29/2018 TECHNIQUE: Portable AP view of the chest FINDINGS: Cardiac silhouette is enlarged, unchanged. Stable positioning of left subclavian pacer. Mildly improv ed pulmonary edema. Small right pleural effusion with linear right midlung and right lung base opacit ies suggestive of probable atelectasis. No pneumothorax. Degenerative changes of the shoulders and sp ine. IMPRESSION: 1. Cardiomegaly with mildly improved pulmonary edema. 2. Small right pleural effusion with persistent right midlung and right lung base opacities suggestiv e of scarring/atelectasis. The above report was generated using voice recognition software. It may contain grammatical, syntax o r spelling errors. Electronically signed by: Vivek Shankar M.D. 12/30/2018 7:19 AM
--- NOTE | 2018-12-30 07:26 | Gastrointestinal Consultation ---
Date of Consultation December 30, 2018 Assessment & Plan (1) Elevated LFTs: RUQ guarding, ? stones/sludge in CBD, ? portal venous gas, elevated WBC, elev lactic acid Recommend broad spectrum abx. Discussed with DR Dan the clinical administrator regarding when portal venous gas suggested my first though is intestinal ischemia so told him to please have surgery see patient this morning to address that possibility. LFTS can go up with sepsis. If surgery feels like this is not intestinal ischemia then ERCP would be indicated to rule out bile duct obstruction/cholangitis. She has pacemake so cannot do MRCP to help us decide. Pt agreeable to ERCP if needed. Explained proc and risks which include but not limited to med reaction, bleeding, perforation, aspiration, and pancreatitis. NPO for now. Other problems per intenstivist History of Present Illness Reason for Consultation: tranaminitis, RUQ guarding Requesting Physician: GUICHO Ralph Attending Physician: Abram Scott MD History of Present Illness CC RUQ pain HPI Reviewed old records and she is heterozygous for hemochromatossis. Also noted colo to TI 04/2016 tubular adenoma polyps removed,. EGD 04/201617 Grade B esophagitis pos for fungus. Noted consult 07/2016 CBD stones, elev LFTs. Noted ERCP done but cannot access report. She states she gets some abd pain at times but had acute worsening day of admit RUQ going to back. LFTs, WBC, and lactic acid elevated. Transaminases better but WBC, lactic acid, and WBC worse this am. CT a/p official report pneumobilia but per Timbo the overnight radiologist while reading the U/S reference the CT and thought there could be PV gas. Prelim report of liver u/s dilated ducts, ? sludge in CBD, fatty liver. She states has had some nausea. She states normal bms and no bloody nor black stools She noted some shortness of breath on admit and after receiving IVF went into flash pulm edema. Fhx noncontributory Allergies Allergy/AdvReac Type Severity Reaction Status Date / Time No Known Allergies Allergy Unverified 12/29/18 17:14 Home Medications Home Medications Medication Instructions Recorded Confirmed Type acetaminophen 500 mg tablet 500 mg PO Q4H PRN 12/03/18 12/29/18 History aspirin 81 mg tablet,delayed 81 mg PO DAILY 12/03/18 12/29/18 History release cholecalciferol (vitamin D3) 5,000 5,000 units PO DAILY 12/03/18 12/29/18 History unit tablet furosemide 20 mg tablet 20 mg PO DAILY 12/03/18 12/29/18 History levalbuterol tartrate 45 2 puffs INH Q4H PRN gm 12/03/18 12/29/18 History mcg/actuation aerosol inhaler levothyroxine 88 mcg tablet 88 mcg PO DAILY 12/03/18 12/29/18 History metoprolol succinate 50 mg 50 mg PO DAILY 12/03/18 12/29/18 History tablet,extended release 24 hr potassium chloride 20 mEq 20 meq PO DAILY 12/03/18 12/29/18 History tablet,extended release(part/cryst) ropinirole 1 mg tablet 1 mg PO QPM tab 12/03/18 12/29/18 History famotidine 20 mg tablet 20 mg PO DAILY 12/16/18 12/29/18 History fluticasone fur. 100 mcg-umeclid 1 puffs INH DAILY #60 ea 12/16/18 12/29/18 Rx 62.5 mcg-vilant 25 mcg inhalat.powder gabapentin 100 mg capsule 100 mg PO DAILY 12/16/18 12/29/18 History Patient History Medical History Atrial fibrillation (Chronic) Hypertension (Chronic) Pacemaker (Chronic) Restless leg syndrome (Chronic) Surgical History S/P cholecystectomy (Resolved) S/P thyroidectomy (Resolved) Social History Preferred Language: Mohawk Communication Ability: Effective Machine Boss Required: No Beliefs That Will Affect Care: None marital status: Current Living Situation: Alone current occupational status: retired Other Information That Helps Us Care for You: No Feels Safe at Home: Yes Safety Concerns: Feels Safe At This Time Smoking Status: Former smoker Tobacco Type: cigarettes ; Cigarettes Per Day: 20 ; Do You Dip or Chew Tobacco: No ; Smoking End Date: 2016 ; Second Hand Exposure: No ; Tobacco Cessation Education Requested by Patient: No Hx Alcohol Use: No Hx Substance Use: No Review of Systems Review of Systems: All systems reviewed & are unremarkable except as noted in HPI & below Physical Exam Constitutional: WD/WN, vitals as above Eyes: PERRL ENMT: external ear and nose normal, oropharynx normal Neck: normal visual inspection and trachea midline Respiratory: normal respiratory effort, lungs clear to auscultation Cardiovascular: no obvious murmur Gastrointestinal (Abdomen): RUQ guarding ? rebound, pos bowel sounds, soft, Skin: normal turgor Neurologic: patellar DTR's 2+ bilat, sensation intact Psychiatric: A+Ox3, euthymic affect Results & Data Vital Signs (Past 12 Hours) Vital Signs Temp Pulse Pulse Resp BP Pulse Ox 12/30/18 05:50 63 17 98 12/30/18 05:30 63 18 101/53 L 97 12/30/18 05:10 65 20 101/52 L 99 12/30/18 05:00 64 20 98 12/30/18 04:30 65 18 101/48 L 98 12/30/18 04:00 36.7 C 67 18 103/50 L 98 12/30/18 03:30 69 19 109/55 L 97 12/30/18 03:00 69 22 111/64 96 12/30/18 02:31 73 24 139/76 100 12/30/18 02:30 73 24 100 12/30/18 02:00 66 19 103/63 98 12/30/18 01:43 65 20 99 12/30/18 01:42 65 20 99 12/30/18 01:30 66 18 102/54 L 98 12/30/18 01:17 68 19 97/47 L 98 12/30/18 01:00 69 19 95/45 L 98 12/30/18 00:30 69 18 99/46 L 98 12/30/18 00:00 37.1 C 71 18 90/48 L 98 12/29/18 23:40 71 18 109/53 L 98 12/29/18 23:30 74 24 96 12/29/18 23:00 75 24 98/52 L 97 12/29/18 22:30 74 21 109/55 L 97 12/29/18 22:04 60 60 23 97 12/29/18 22:00 60 26 H 123/57 L 97 12/29/18 21:30 60 22 96 12/29/18 21:11 71 26 H 98 12/29/18 21:08 37.6 C H 65 60 28 H 123/55 L 95 12/29/18 20:45 60 24 123/62 97 12/29/18 20:30 60 26 H 125/66 99 12/29/18 20:21 84 35 H 95 12/29/18 20:19 60 28 H 137/72 98 12/29/18 20:00 76 31 H 169/72 H 96 12/29/18 19:45 73 26 H 201/112 H 100 12/29/18 19:32 80 42 H 95 12/29/18 19:31 81 43 H 215/84 H 89 L 12/29/18 19:30 89 35 H 94 12/29/18 19:29 220/110 H 96
--- NOTE | 2018-12-30 07:27 | Critical Care Progress Note ---
Date of Service December 30, 2018 Assessment & Plan (1) Admitted to intensive care unit: Reason Critically Ill: 78-year-old female who initially presented with a right upper quadrant abdominal pain in the ED and noted to have developed pulmonary edema requiring BiPAP. She had RUQ pain with now suspected ascending choleangitis. Neuro - [facility] ICU: Negative Alert oriented x3 Fetanyl 25mg q2H PRN pain Cardiac - past medical hx: diastolic dys CHF; HLD, HTN; tachy/juli s/p pacer 2010; Afib not on oral anticoagulation because of iliospoas retroperitoneal hematoma; currently on rate control with Toprol XR 50mg daily. CHFpatient currently takes daily Lasix; t -echo, ordered by overnight team, follow-up results -note of right sided pleural effusion but no effusion noted on CT abd at bases -Currently n.p.o., will give Normosol 80mL in setting of acute choleangitis infection with regard to needing some fluids in setting of sepsis -Continue to monitor on telemetry -Monitor daily weights -Trop negative and ECG no signs of ischemia or acute process; in NSR -Initally in ED was 140s/70s which elevated to 200s/80s-105 then 90s/40s overnight; now 110s/50s. Respiratory - Hx of COPD recently saw Pulm which noted on Trelegy; [place] on CPAP; Hx: Pulmonary Papilloma -will continue BiPAP overnight, patient wears CPAP at home with setting 7 cm H2O for [place] -will hold diuresis and monitor strict I's and O's as creatinine bumped suggestive IVONNE from diuresis -Initial ABG 7.25/49/242/21; probably CO2 retainer; but with Lactic Acid elevated this is most likely a metabolic process/metabolic acidosis -CXR this morning showing mildly improved pulmonary edema; CT abdomen views of lungs show chronic scarring without signs of pluerral effusion -Continue nebs -Continuous monitoring of oxygen saturation -Currently 3L NC GI - Exam consistent with biliary source with RUQ pain; notes same pain as prior acute cholecystitis; hx of cholecystectomy in 2017 with ERCP with stent placements enterotomy; lap selina with stent removal. CT Abd w/o contrast showed pneumobilia w/o abdominal bowel wall free air; Liver US showed intrahepatic and extrahepatic biliary ductal dilatation suggestive choledocholithiasis; hepatic steatosis w/mild nodularity of liver. Suspect Acute choleangitis retained stoned versus ascending which is being covered with Zosyn; started by admitting physician. GI was consulted early this morning for ERCP; general surgery was consulted as well which concurred most like acute choleangitis versus mesenteric ischemia; although with hx of afib, embolic sourc it was considered on the differential. But no pain out of proportion to exam and no bowel wall free air seen on CT. Lab are consistent with biliary tract disease. total bili initial was 2.9 now 6.2; AST/ALT initially was 485/ 326 now 278/284. Ammonia was WNL; Hep C was negative; Hep B profile pending continue with Pepcid 20mg q12h. INR 1.2 Hx of retropenitoneal right iliosposas hematoma as to why not on anti- coagulation for afib. RENAL/LYTES - Sodium and potassium WNL; Mag WNL Had elevated Ca 10.5 now 9.4 in setting of receiving Lasix 60mg in ED Phos slightly elevated 5.0 Creat went from 1.28 to 1.74 suggestive of IVONNE from diuresis; holding diuretics Gentle IVFs with Normosol 80mL/hr to prevent fluid overload but given infection will need IV fluids. - Foleystrict I's and O's ENDO - ThyroidectomyTSH WNL, hold home dose Synthroid, okay to hold for a day or two if needing procedure. HEME - H&H stable, continue monitor with routine CBCs Leukocytosis initially 14 now 20.8 Platelets WNL ID - Presumed sepsis from acute choleangitis started Zosyn and will continue; patient afebrile but had leukocytosis -Urinalysis unremarkable, no opacities consistent with pneumonia on initial chest x-ray -blood cultures pending, lactate elevated consistent with metabolic acidosis LINES/IV ACCESS - Peripheral IVs DVT PROPHYLAXIS - SCDs; Heparin (2) Atrial fibrillation: (3) S/P cholecystectomy: (4) S/P thyroidectomy: (5) Elevated LFTs: (6) Right upper quadrant abdominal pain: (7) Hypertension: (8) Pacemaker: (9) Pulmonary edema: (10) Metabolic acidosis, increased anion gap: (11) Acute cholangitis: Supervising Physician Co-Signing Physician Notes Patient seen and examined. Discussed with NAVIN last evening and again this morning EMR reviewed. Discussed with GI and general surgery this morning as well. Briefly this 78-year-old female with a history of cholecystectomy approximately 2 years ago for chronic cholecystitis presented to the emergency room with abdominal pain. Her abdominal pain is been going on for approximately 12 hours prior to presentation. She is found to have right upper quadrant tenderness as well as abnormal liver function test. CT the abdomen was obtained which revealed some portal venous air and dilated common bile duct with some debris in the distal portion of the duct. This was confirmed on ultrasound and the patient received Zosyn in the form of antimicrobials. Unfortunately blood cultures were obtained after administration of antibiotics. She did receive some fluids in the emergency room and developed fairly rapidly progressive hypoxemic respiratory failure requiring application of noninvasive positive pressure ventilation. This resulted in ICU admission. Overnight the patient has been weaned off of BiPAP. She was diuresed empirically. Her white count continues to remain elevated. AST and ALT of decreased however total bili is increased and she remains significantly tender requiring narcotics for her pain. Recommendations: 1. Clinical picture highly concerning for a sending cholangitis. This would explain the biliary duct findings as well as the portal gas. Continue Zosyn. Discussed with GI and think the patient would benefit from ERCP with possible stent placement. Did discuss with general surgery although her imaging studies clinical exam and presentation are not entirely consistent with mesenteric ischemia. Await cultures. Will trend lactate over time. Keep n.p.o. for now. We will try Dilaudid instead of fentanyl for her persistent right upper quadrant pain. Transition to MEDICAL LANGUAGE SPECIALIST may be appropriate. 2. Acute on chronic hypoxemic respiratory failure in the setting of obstructive lung disease: The patient does not appear overtly bronchospastic currently. She may have some fluid overload. Echocardiogram pending. We will hold on additional diuresis as she appears euvolemic currently and given potential underlying sepsis may benefit from slightly higher filling pressures. Additional recommendations will be based on echocardiogram. 3. Acute kidney injury: Baseline chronic kidney disease slightly worsened now. Likely sepsis with ATN although cannot exclude other potential etiologies. Obstruction felt to be less likely given CT findings without significant hydronephrosis. Continue supportive care. Follow serum creatinine electrolytes and acid-base status. Avoid additional nephrotoxins. 4. Atrial fibrillation: The patient is currently in sinus rhythm with a first- degree block. She does have a pacemaker in place. She is on Toprol-XL in the outpatient setting. We may need to add metoprolol however will hold for now given her marginal hemodynamics. 5. Monitor in the ICU pending ERCP analysis. Subjective Marianne notes continued right upper quadrant pain that does radiate to back. No right shoulder pain. No nausea, vomiting, diarrhea, fever, chills, chest pain, shortness of breath noted. She is requesting analgesics for pain. She notes not wanting endotracheal intubation in event of code. Physical Exam Constitutional: WD/WN, vitals as above + ill appearing, + obese and cooperative; no altered mental status Eyes: EOM intact bilaterally ENMT: external ear and nose normal, oropharynx normal Neck: normal visual inspection and trachea midline Respiratory: no respiratory distress, no labored breathing and does not use accessory muscles coarse breath sounds at bases Cardiovascular: Rate/Rhythm: regular rate and regular rhythm Extremities: no pedal edema Gastrointestinal (Abdomen): Inspection/Auscultation: normal bowel sounds Percussion/Palpation: + abdomen tender (RUQ) and + guarding Musculoskeletal: Head/Neck/Chest: normocephalic and head atraumatic Skin: no rashes, warm and dry Neurologic: moves all extremities and awake Psychiatric: Orientation: alert and cooperative Affect: + anxious affect Results & Data Vital Signs (Past 12 Hours) Vital Signs Temp Pulse Pulse Resp BP Pulse Ox 12/30/18 05:50 63 17 98 12/30/18 05:30 63 18 101/53 L 97 12/30/18 05:10 65 20 101/52 L 99 12/30/18 05:00 64 20 98 12/30/18 04:30 65 18 101/48 L 98 12/30/18 04:00 36.7 C 67 18 103/50 L 98 12/30/18 03:30 69 19 109/55 L 97 12/30/18 03:00 69 22 111/64 96 12/30/18 02:31 73 24 139/76 100 12/30/18 02:30 73 24 100 12/30/18 02:00 66 19 103/63 98 12/30/18 01:43 65 20 99 12/30/18 01:42 65 20 99 12/30/18 01:30 66 18 102/54 L 98 12/30/18 01:17 68 19 97/47 L 98 12/30/18 01:00 69 19 95/45 L 98 12/30/18 00:30 69 18 99/46 L 98 12/30/18 00:00 37.1 C 71 18 90/48 L 98 12/29/18 23:40 71 18 109/53 L 98 12/29/18 23:30 74 24 96 12/29/18 23:00 75 24 98/52 L 97 12/29/18 22:30 74 21 109/55 L 97 12/29/18 22:04 60 60 23 97 12/29/18 22:00 60 26 H 123/57 L 97 12/29/18 21:30 60 22 96 12/29/18 21:11 71 26 H 98 12/29/18 21:08 37.6 C H 65 60 28 H 123/55 L 95 12/29/18 20:45 60 24 123/62 97 12/29/18 20:30 60 26 H 125/66 99 12/29/18 20:21 84 35 H 95 12/29/18 20:19 60 28 H 137/72 98 12/29/18 20:00 76 31 H 169/72 H 96 12/29/18 19:45 73 26 H 201/112 H 100 12/29/18 19:32 80 42 H 95 12/29/18 19:31 81 43 H 215/84 H 89 L 12/29/18 19:30 89 35 H 94 12/29/18 19:29 220/110 H 96 Laboratory Results Laboratory Results - last 24 hr 12/29/18 12/29/18 12/29/18 15:19 15:19 15:19 WBC 14.56 H RBC 4.63 Hgb 15.2 Hct 45.4 MCV 98.1 MCH 32.8 MCHC 33.5 RDW Std Deviation 47.8 H RDW Coeff of Agusto 13.5 Plt Count 273 MPV 10.1 Immature Gran % (Auto) 0.4 Neut % (Auto) 93.5 Lymph % (Auto) 3.2 [place] % (Auto) 2.6 Eos % (Auto) 0.2 Baso % (Auto) 0.1 Immature Gran # (Auto) 0.06 H Neut # (Auto) 13.61 H Lymph # (Auto) 0.47 L [place] # (Auto) 0.38 Eos # (Auto) 0.03 Baso # (Auto) 0.01 PT Cancelled INR Cancelled APTT Cancelled PTT Ratio Cancelled POC pH POC pCO2 POC pO2 POC HCO3 POC Total CO2 POC Base Excess ABG pH ABG pCO2 ABG pO2 ABG HCO3 POC ABG O2 Sat ABG O2 Saturation ABG Base Excess Derek Test Barometric Pressure Oxygen Given Sodium 137 Potassium Chloride 103 Carbon Dioxide 25 Anion Gap 9.0 BUN 20 H Creatinine 1.28 H Est Cr Clr Drug Dosing 43.2 Est GFR ( Amer) 45.7 Est GFR (Non-Af Amer) 39.4 BUN/Creatinine Ratio 15.9 Glucose 97 Lactate Calcium 10.5 H Phosphorus Magnesium Total Bilirubin 2.9 H Direct Bilirubin AST ALT 326 H Alkaline Phosphatase 325 H Ammonia Troponin I < 0.015 Total Protein 8.7 H Albumin 3.9 Globulin 4.8 H Albumin/Globulin Ratio 0.8 L Lipase 150 TSH Urine Color Urine Appearance Urine pH Ur Specific [place] Urine Protein Urine Glucose (UA) Urine Ketones Urine Blood Urine Nitrite Urine Bilirubin Urine Urobilinogen Ur Leukocyte Esterase Urine WBC (Auto) Urine RBC (Auto) U Hyaline Cast (Auto) U Epithel Cells (Auto) Urine Bacteria (Auto) Nasal Screen MRSA (PCR) Salicylates Acetaminophen Hepatitis A IgM Ab Hep Bs Antigen Hep B Core IgM Ab Hepatitis C Antibody Miscellaneous Test Miscellaneous Test 2 12/29/18 12/29/18 12/29/18 15:34 16:50 16:50 WBC RBC Hgb Hct MCV MCH MCHC RDW Std Deviation RDW Coeff of Agusto Plt Count MPV Immature Gran % (Auto) Neut % (Auto) Lymph % (Auto) [place] % (Auto) Eos % (Auto) Baso % (Auto) Immature Gran # (Auto) Neut # (Auto) Lymph # (Auto) [place] # (Auto) Eos # (Auto) Baso # (Auto) PT 10.2 INR 1.0 APTT 23.3 PTT Ratio 0.9 POC pH POC pCO2 POC pO2 POC HCO3 POC Total CO2 POC Base Excess ABG pH ABG pCO2 ABG pO2 ABG HCO3 POC ABG O2 Sat ABG O2 Saturation ABG Base Excess Derek Test Barometric Pressure Oxygen Given Sodium Potassium 4.0 Chloride Carbon Dioxide Anion Gap BUN Creatinine Est Cr Clr Drug Dosing Est GFR ( Amer) Est GFR (Non-Af Amer) BUN/Creatinine Ratio Glucose Lactate Calcium Phosphorus Magnesium Total Bilirubin Direct Bilirubin AST 485 H ALT Alkaline Phosphatase Ammonia Troponin I Total Protein Albumin Globulin Albumin/Globulin Ratio Lipase TSH Urine Color Dark Yellow Urine Appearance Clear Urine pH 7.0 Ur Specific [place] 1.020 Urine Protein Negative Urine Glucose (UA) Negative Urine Ketones Negative Urine Blood Negative Urine Nitrite Negative Urine Bilirubin 2+ H Urine Urobilinogen Positive H Ur Leukocyte Esterase Trace H Urine WBC (Auto) 1-5 Urine RBC (Auto) 0-4 U Hyaline Cast (Auto) 1-5 U Epithel Cells (Auto) 20-30 H Urine Bacteria (Auto) Negative Nasal Screen MRSA (PCR) Salicylates Acetaminophen Hepatitis A IgM Ab Hep Bs Antigen Hep B Core IgM Ab Hepatitis C Antibody Miscellaneous Test Miscellaneous Test 2 12/29/18 12/29/18 12/29/18 16:50 19:45 21:16 WBC RBC Hgb Hct MCV MCH MCHC RDW Std Deviation RDW Coeff of Agusto Plt Count MPV Immature Gran % (Auto) Neut % (Auto) Lymph % (Auto) [place] % (Auto) Eos % (Auto) Baso % (Auto) Immature Gran # (Auto) Neut # (Auto) Lymph # (Auto) [place] # (Auto) Eos # (Auto) Baso # (Auto) PT INR APTT PTT Ratio POC pH 7.26 L POC pCO2 49 H POC pO2 242 H POC HCO3 22 POC Total CO2 23 L POC Base Excess -5.0 ABG pH ABG pCO2 ABG pO2 ABG HCO3 POC ABG O2 Sat 100.0 H ABG O2 Saturation ABG Base Excess Derek Test Barometric Pressure Oxygen Given Sodium Potassium Chloride Carbon Dioxide Anion Gap BUN Creatinine Est Cr Clr Drug Dosing Est GFR ( Amer) Est GFR (Non-Af Amer) BUN/Creatinine Ratio Glucose Lactate Calcium Phosphorus Magnesium Total Bilirubin Direct Bilirubin AST ALT Alkaline Phosphatase Ammonia Troponin I < 0.015 Total Protein Albumin Globulin Albumin/Globulin Ratio Lipase TSH Urine Color Urine Appearance Urine pH Ur Specific [place] Urine Protein Urine Glucose (UA) Urine Ketones Urine Blood Urine Nitrite Urine Bilirubin Urine Urobilinogen Ur Leukocyte Esterase Urine WBC (Auto) Urine RBC (Auto) U Hyaline Cast (Auto) U Epithel Cells (Auto) Urine Bacteria (Auto) Nasal Screen MRSA (PCR) Negative Salicylates Acetaminophen Hepatitis A IgM Ab Hep Bs Antigen Hep B Core IgM Ab Hepatitis C Antibody Miscellaneous Test Miscellaneous Test 2 12/29/18 12/29/18 12/29/18 23:09 23:09 23:09 WBC RBC Hgb Hct MCV MCH MCHC RDW Std Deviation RDW Coeff of Agusto Plt Count MPV Immature Gran % (Auto) Neut % (Auto) Lymph % (Auto) [place] % (Auto) Eos % (Auto) Baso % (Auto) Immature Gran # (Auto) Neut # (Auto) Lymph # (Auto) [place] # (Auto) Eos # (Auto) Baso # (Auto) PT INR APTT PTT Ratio POC pH POC pCO2 POC pO2 POC HCO3 POC Total CO2 POC Base Excess ABG pH ABG pCO2 ABG pO2 ABG HCO3 POC ABG O2 Sat ABG O2 Saturation ABG Base Excess Derek Test Barometric Pressure Oxygen Given Sodium Potassium Chloride Carbon Dioxide Anion Gap BUN Creatinine Est Cr Clr Drug Dosing Est GFR ( Amer) Est GFR (Non-Af Amer) BUN/Creatinine Ratio Glucose Lactate Calcium Phosphorus Magnesium Total Bilirubin Direct Bilirubin AST ALT Alkaline Phosphatase Ammonia 24.5 Troponin I Total Protein Albumin Globulin Albumin/Globulin Ratio Lipase TSH Urine Color Urine Appearance Urine pH Ur Specific [place] Urine Protein Urine Glucose (UA) Urine Ketones Urine Blood Urine Nitrite Urine Bilirubin Urine Urobilinogen Ur Leukocyte Esterase Urine WBC (Auto) Urine RBC (Auto) U Hyaline Cast (Auto) U Epithel Cells (Auto) Urine Bacteria (Auto) Nasal Screen MRSA (PCR) Salicylates Cancelled Acetaminophen Cancelled Hepatitis A IgM Ab Hep Bs Antigen Hep B Core IgM Ab Hepatitis C Antibody Miscellaneous Test Pending Miscellaneous Test 2 Pending 12/29/18 12/29/18 12/29/18 23:19 23:19 23:19 WBC RBC Hgb Hct MCV MCH MCHC RDW Std Deviation RDW Coeff of Agusto Plt Count MPV Immature Gran % (Auto) Neut % (Auto) Lymph % (Auto) [place] % (Auto) Eos % (Auto) Baso % (Auto) Immature Gran # (Auto) Neut # (Auto) Lymph # (Auto) [place] # (Auto) Eos # (Auto) Baso # (Auto) PT INR APTT PTT Ratio POC pH POC pCO2 POC pO2 POC HCO3 POC Total CO2 POC Base Excess ABG pH ABG pCO2 ABG pO2 ABG HCO3 POC ABG O2 Sat ABG O2 Saturation ABG Base Excess Derek Test Barometric Pressure Oxygen Given Sodium Potassium Chloride Carbon Dioxide Anion Gap BUN Creatinine Est Cr Clr Drug Dosing Est GFR ( Amer) Est GFR (Non-Af Amer) BUN/Creatinine Ratio Glucose Lactate 2.4 H* Calcium Phosphorus Magnesium Total Bilirubin Direct Bilirubin AST ALT Alkaline Phosphatase Ammonia Troponin I Total Protein Albumin Globulin Albumin/Globulin Ratio Lipase TSH Urine Color Urine Appearance Urine pH Ur Specific [place] Urine Protein Urine Glucose (UA) Urine Ketones Urine Blood Urine Nitrite Urine Bilirubin Urine Urobilinogen Ur Leukocyte Esterase Urine WBC (Auto) Urine RBC (Auto) U Hyaline Cast (Auto) U Epithel Cells (Auto) Urine Bacteria (Auto) Nasal Screen MRSA (PCR) Salicylates Acetaminophen Hepatitis A IgM Ab Pending Hep Bs Antigen Neg Hep B Core IgM Ab Pending Hepatitis C Antibody Neg Miscellaneous Test Miscellaneous Test 2 12/30/18 12/30/18 12/30/18 04:42 04:42 04:42 WBC 20.86 H RBC 4.27 Hgb 13.8 Hct 41.3 MCV 96.7 MCH 32.3 MCHC 33.4 RDW Std Deviation 47.2 H RDW Coeff of Agusto 13.5 Plt Count 228 MPV 9.9 Immature Gran % (Auto) 0.3 Neut % (Auto) 93.6 Lymph % (Auto) 2.2 [place] % (Auto) 3.8 Eos % (Auto) 0.0 Baso % (Auto) 0.1 Immature Gran # (Auto) 0.06 H Neut # (Auto) 19.53 H Lymph # (Auto) 0.45 L [place] # (Auto) 0.80 H Eos # (Auto) 0.00 Baso # (Auto) 0.02 PT 11.7 INR 1.2 H APTT 26.8 PTT Ratio 1.0 POC pH POC pCO2 POC pO2 POC HCO3 POC Total CO2 POC Base Excess ABG pH ABG pCO2 ABG pO2 ABG HCO3 POC ABG O2 Sat ABG O2 Saturation ABG Base Excess Derek Test Barometric Pressure Oxygen Given Sodium 139 Potassium 4.0 Chloride 103 Carbon Dioxide 26 Anion Gap 10.0 BUN 24 H Creatinine 1.74 H D Est Cr Clr Drug Dosing 29.6 Est GFR ( Amer) 31.5 Est GFR (Non-Af Amer) 27.2 BUN/Creatinine Ratio 13.8 Glucose 155 H Lactate Calcium 9.4 Phosphorus 5.0 H Magnesium 2.0 Total Bilirubin 6.2 H D Direct Bilirubin 4.9 H AST 278 H ALT 284 H Alkaline Phosphatase 238 H Ammonia Troponin I Total Protein 6.9 D Albumin 3.0 L Globulin Albumin/Globulin Ratio Lipase TSH 1.320 Urine Color Urine Appearance Urine pH Ur Specific [place] Urine Protein Urine Glucose (UA) Urine Ketones Urine Blood Urine Nitrite Urine Bilirubin Urine Urobilinogen Ur Leukocyte Esterase Urine WBC (Auto) Urine RBC (Auto) U Hyaline Cast (Auto) U Epithel Cells (Auto) Urine Bacteria (Auto) Nasal Screen MRSA (PCR) Salicylates Acetaminophen Hepatitis A IgM Ab Hep Bs Antigen Hep B Core IgM Ab Hepatitis C Antibody Miscellaneous Test Miscellaneous Test 2 12/30/18 12/30/18 12/30/18 04:42 04:42 06:16 WBC RBC Hgb Hct MCV MCH MCHC RDW Std Deviation RDW Coeff of Agusto Plt Count MPV Immature Gran % (Auto) Neut % (Auto) Lymph % (Auto) [place] % (Auto) Eos % (Auto) Baso % (Auto) Immature Gran # (Auto) Neut # (Auto) Lymph # (Auto) [place] # (Auto) Eos # (Auto) Baso # (Auto) PT INR APTT PTT Ratio POC pH POC pCO2 POC pO2 POC HCO3 POC Total CO2 POC Base Excess ABG pH 7.47 H ABG pCO2 35 ABG pO2 104 H ABG HCO3 25 H POC ABG O2 Sat ABG O2 Saturation 97.0 H ABG Base Excess 1.7 Derek Test Pos Barometric Pressure 730.6 Oxygen Given 2L Sodium Potassium Chloride Carbon Dioxide Anion Gap BUN Creatinine Est Cr Clr Drug Dosing Est GFR ( Amer) Est GFR (Non-Af Amer) BUN/Creatinine Ratio Glucose Lactate 3.0 H* Calcium Phosphorus Magnesium Total Bilirubin Direct Bilirubin AST ALT Alkaline Phosphatase Ammonia Troponin I Total Protein Albumin Globulin Albumin/Globulin Ratio Lipase 45 L TSH Urine Color Urine Appearance Urine pH Ur Specific [place] Urine Protein Urine Glucose (UA) Urine Ketones Urine Blood Urine Nitrite Urine Bilirubin Urine Urobilinogen Ur Leukocyte Esterase Urine WBC (Auto) Urine RBC (Auto) U Hyaline Cast (Auto) U Epithel Cells (Auto) Urine Bacteria (Auto) Nasal Screen MRSA (PCR) Salicylates Acetaminophen Hepatitis A IgM Ab Hep Bs Antigen Hep B Core IgM Ab Hepatitis C Antibody Miscellaneous Test Miscellaneous Test 2 Medications Administered Fentanyl Citrate (Fentanyl Citrate) 25 mcg IV Q2H PRN PRN Reason: Pain Stop: 01/13/19 00:29 Last Admin: 12/30/18 07:46 Dose: 25 mcg Documented by: [id number] Admin: 12/30/18 05:15 Dose: 25 mcg Documented by: [id number] Admin: 12/30/18 02:40 Dose: 25 mcg Documented by: [id number] Heparin Sodium (Porcine) (Heparin Sodium (Porcine)) 5,000 units SQ Q8 JENNIFER Stop: 01/28/19 21:59 Last Admin: 12/30/18 06:03 Dose: 5,000 units Documented by: [id number] Cosigned by: [id number] Admin: 12/29/18 21:46 Dose: 5,000 units Documented by: [id number] Cosigned by: [id number] Famotidine 20 mg/ Syringe 5 mls @ 2.5 mls/min IV Q12 JENNIFER Stop: 01/28/19 21:17 Last Admin: 12/30/18 07:53 Dose: 2.5 mls/min Documented by: [id number] Admin: 12/29/18 21:45 Dose: 2.5 mls/min Documented by: [id number] Piperacillin Sod/Tazobactam (Sod 3.375 gm/ Dextrose) 115 mls @ 28.75 mls/hr IV Q8H [facility]; Protocol Stop: 01/09/19 00:00 Last Admin: 12/30/18 07:53 Dose: 28.8 mls/hr Documented by: [id number] Infusion: 12/30/18 04:30 Dose: 0 mls/hr Documented by: [id number] Admin: 12/30/18 00:18 Dose: 28.8 mls/hr Documented by: [id number] Ipratropium [place] (Atrovent 0.02% 0.5mg/2.5ml) 0.5 mg INH Q4R JENNIFER Stop: 01/28/19 22:59 Last Admin: 12/30/18 07:25 Dose: 0.5 mg Documented by: [id number] Admin: 12/30/18 01:40 Dose: 0.5 mg Documented by: [id number] Admin: 12/29/18 22:04 Dose: 0.5 mg Documented by: [id number] Levalbuterol HCl (Xopenex 0.63 Mg/3 Ml Neb) 0.63 mg INH Q4R JENNIFER Stop: 01/28/19 22:59 Last Admin: 12/30/18 07:25 Dose: 0.63 mg Documented by: [id number] Admin: 12/30/18 01:40 Dose: 0.63 mg Documented by: [id number] Admin: 12/29/18 22:04 Dose: 0.63 mg Documented by: [id number] Levothyroxine Sodium (Synthroid) 88 mcg PO DAILYBB [facility] Stop: 01/29/19 06:29 Last Admin: 12/30/18 05:52 Dose: Not Given Documented by: [id number] Nitroglycerin (Nitro-Bid 2%) 1 inch EXT Q6 [facility] Stop: 01/28/19 19:59 Last Admin: 12/29/18 20:40 Dose: Not Given Documented by: [id number] PG Care Time/CCT Total # of Minutes Spent Total Time Spent with Patient: Total time spent is greater than 50% in coordination of care (as documented) at patient's floor/unit and/or counseling patient: Critical Care Time: Yes Total Critical Care Time: 45 Resident Activity Tracking Resident Involvement: Resident Care Provided Care Provided: Adult Hospital Medicine (ICU) (1) Pulmonary edema Chronicity: acute Qualified Code(s): J81.0 - Acute pulmonary edema
[2018-12-30] MEDS: FAMOTIDINE 20 MG in SYRINGE 3 ML IV SCH ×2 (07:53→21:09)
[2018-12-30] MEDS: FUROSEMIDE 60 MG in SYRINGE 0 ML IV SCH (07:53)
--- NOTE | 2018-12-30 08:05 | Surgery Consultation ---
Date of Consultation December 30, 2018 Assessment & Plan (1) Right upper quadrant abdominal pain: Unlikely to be bowel ischemia. Would consider ERCP, and discussed with Dr. Aponte. History of Present Illness Attending Physician: Theodore óLpez MD History of Present Illness 78 y/o female admitted last evening for abdominal pain, nausea that began around 10 AM. No vomiting in the past 24 hours although she has been having intermittent pain for a few weeks and did have N/V about a week ago. She had ERCP and lap eslina in July 2016. Dr. Lin's op note describes 2-3 cm of firmness to the cystic duct but was unable to milk any debris from ductotomy, and apparently the ERCP was also difficult. Allergies Allergy/AdvReac Type Severity Reaction Status Date / Time No Known Allergies Allergy Unverified 12/29/18 17:14 Home Medications Home Medications Medication Instructions Recorded Confirmed Type acetaminophen 500 mg tablet 500 mg PO Q4H PRN 12/03/18 12/29/18 History aspirin 81 mg tablet,delayed 81 mg PO DAILY 12/03/18 12/29/18 History release cholecalciferol (vitamin D3) 5,000 5,000 units PO DAILY 12/03/18 12/29/18 History unit tablet furosemide 20 mg tablet 20 mg PO DAILY 12/03/18 12/29/18 History levalbuterol tartrate 45 2 puffs INH Q4H PRN gm 12/03/18 12/29/18 History mcg/actuation aerosol inhaler levothyroxine 88 mcg tablet 88 mcg PO DAILY 12/03/18 12/29/18 History metoprolol succinate 50 mg 50 mg PO DAILY 12/03/18 12/29/18 History tablet,extended release 24 hr potassium chloride 20 mEq 20 meq PO DAILY 12/03/18 12/29/18 History tablet,extended release(part/cryst) ropinirole 1 mg tablet 1 mg PO QPM tab 12/03/18 12/29/18 History famotidine 20 mg tablet 20 mg PO DAILY 12/16/18 12/29/18 History fluticasone fur. 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 Beliefs That Will Affect Care: None marital status: Current Living Situation: Alone current occupational status: retired Other Information That Helps Us Care for You: No Feels Safe at Home: Yes Safety Concerns: Feels Safe At This Time Smoking Status: Former smoker Tobacco Type: cigarettes ; Cigarettes Per Day: 20 ; Do You Dip or Chew Tobacco: No ; Smoking End Date: 2016 ; Second Hand Exposure: No ; Tobacco Cessation Education Requested by Patient: No Hx Alcohol Use: No Hx Substance Use: No Review of Systems Constitutional: no fever, no chills, no malaise and no anorexia Cardiovascular: no chest pain and no chest pain with activity Gastrointestinal: + abdominal pain and + nausea; no vomiting, no change in bowel habits and no diarrhea/loose stools Physical Exam Constitutional: no acute distress alert, oriented x3 Respiratory: normal respiratory effort Cardiovascular: Rate/Rhythm: regular rate Gastrointestinal (Abdomen): Inspection/Auscultation: abdomen normal to inspection and + abdominal surgical scar (laparoscopy); abdomen not distended Percussion/Palpation: + abdomen tender (RUQ) and abdomen soft; no hernia Results & Data Vital Signs (Past 12 Hours) Vital Signs Temp Pulse Pulse Resp BP Pulse Ox 12/30/18 07:25 74 19 98 12/30/18 05:50 63 17 98 12/30/18 05:30 63 18 101/53 L 97 12/30/18 05:10 65 20 101/52 L 99 12/30/18 05:00 64 20 98 12/30/18 04:30 65 18 101/48 L 98 12/30/18 04:00 36.7 C 67 18 103/50 L 98 12/30/18 03:30 69 19 109/55 L 97 12/30/18 03:00 69 22 111/64 96 12/30/18 02:31 73 24 139/76 100 12/30/18 02:30 73 24 100 12/30/18 02:00 66 19 103/63 98 12/30/18 01:43 65 20 99 12/30/18 01:42 65 20 99 12/30/18 01:30 66 18 102/54 L 98 12/30/18 01:17 68 19 97/47 L 98 12/30/18 01:00 69 19 95/45 L 98 12/30/18 00:30 69 18 99/46 L 98 12/30/18 00:00 37.1 C 71 18 90/48 L 98 12/29/18 23:40 71 18 109/53 L 98 12/29/18 23:30 74 24 96 12/29/18 23:00 75 24 98/52 L 97 12/29/18 22:30 74 21 109/55 L 97 12/29/18 22:04 60 60 23 97 12/29/18 22:00 60 26 H 123/57 L 97 12/29/18 21:30 60 22 96 12/29/18 21:11 71 26 H 98 12/29/18 21:08 37.6 C H 65 60 28 H 123/55 L 95 12/29/18 20:45 60 24 123/62 97 12/29/18 20:30 60 26 H 125/66 99 12/29/18 20:21 84 35 H 95 12/29/18 20:19 60 28 H 137/72 98 Diagnostic Findings US liver HISTORY: 78 years-old Female Transaminitis acutely elevated LFTs COMPARISON: CT abdomen and pelvis 12/29/2018 TECHNIQUE: Multiple real-time sonographic images of the abdominal right upper quadrant were obtained assessing grayscale appearance and color flow FINDINGS: Visualized pancreas is unremarkable. Increased echogenicity of the liver suggests hepatic steatosis. Hepatopedal flow noted within the portal vein. Mild nodular contour of the liver. Pneumobilia described on CT is not definitively appreciated by ultrasound. Dilated common bile duct, 1.7 cm is noted with stone versus layering debris within the distal common bile duct. Mild intrahepatic biliary ductal dilation. Cholecystectomy. Cortical thinning noted throughout the right kidney. IMPRESSION: 1. Cholecystectomy with intrahepatic and extrahepatic biliary ductal dilation. Additionally there is suggested choledocholithiasis. Correlate with laboratory analysis to assess for obstructive process. 2. Hepatic steatosis with mild marginal nodularity of the liver. Correlate clinically to exclude cirrhosis. The above report was generated using voice recognition software. It may contain grammatical, syntax or spelling errors. Electronically signed by: Vivek Shankar M.D. 12/30/2018 7:01 AM PG Care Time/CCT Total # of Minutes Spent Total Time Spent with Patient: Total time spent is greater than 50% in coordination of care (as documented) at patient's floor/unit and/or counseling patient:
[2018-12-30] MEDS: NORMOSOL-R 1,000 ML IV SCH ×2 (09:53→23:30)
[2018-12-30] MEDS: HYDROmorphone INJ 0.5 MG/0.5 ML SYR IV PRN (12:41)
[2018-12-30] MEDS ORDERED: INDOMETHACIN 25 MG CAP PO ONE (14:00)
--- NOTE | 2018-12-30 14:33 | History & Physical Report ---
Date of Service December 30, 2018 History of Present Illness Chief Complaint: CBD stone, cholangitis Primary Care Provider: Lg Rodriguez For ERCP Allergies Allergy/AdvReac Type Severity Reaction Status Date / Time No Known Allergies Allergy Unverified 12/29/18 17:14 Home Medications Home Medications Medication Instructions Recorded Confirmed Type acetaminophen 500 mg tablet 500 mg PO Q4H PRN 12/03/18 12/29/18 History aspirin 81 mg tablet,delayed 81 mg PO DAILY 12/03/18 12/29/18 History release cholecalciferol (vitamin D3) 5,000 5,000 units PO DAILY 12/03/18 12/29/18 History unit tablet furosemide 20 mg tablet 20 mg PO DAILY 12/03/18 12/29/18 History levalbuterol tartrate 45 2 puffs INH Q4H PRN gm 12/03/18 12/29/18 History mcg/actuation aerosol inhaler levothyroxine 88 mcg tablet 88 mcg PO DAILY 12/03/18 12/29/18 History metoprolol succinate 50 mg 50 mg PO DAILY 12/03/18 12/29/18 History tablet,extended release 24 hr potassium chloride 20 mEq 20 meq PO DAILY 12/03/18 12/29/18 History tablet,extended release(part/cryst) ropinirole 1 mg tablet 1 mg PO QPM tab 12/03/18 12/29/18 History famotidine 20 mg tablet 20 mg PO DAILY 12/16/18 12/29/18 History fluticasone fur. 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 Beliefs That Will Affect Care: None marital status: Current Living Situation: Alone current occupational status: retired Other Information That Helps Us Care for You: No Feels Safe at Home: Yes Safety Concerns: Feels Safe At This Time Smoking Status: Former smoker Tobacco Type: cigarettes ; Cigarettes Per Day: 20 ; Do You Dip or Chew Tobacco: No ; Smoking End Date: 2016 ; Second Hand Exposure: No ; Tobacco Cessation Education Requested by Patient: No Hx Alcohol Use: No Hx Substance Use: No Physical Exam Constitutional: + morbidly obese Respiratory: Nasal o2 Cardiovascular: Rate/Rhythm: regular rate and regular rhythm Gastrointestinal (Abdomen): Percussion/Palpation: abdomen soft scar Results & Data Vital Signs (Past 12 Hours) Vital Signs Temp Pulse Pulse Resp BP Pulse Ox 12/30/18 14:00 78 28 H 114/68 93 12/30/18 13:30 77 25 H 92 12/30/18 13:00 77 25 H 114/58 L 92 12/30/18 12:30 76 28 H 94 12/30/18 12:00 72 24 112/56 L 93 12/30/18 11:30 37.3 C 72 24 96 12/30/18 11:07 104 H 21 97 12/30/18 11:00 70 25 H 108/63 95 12/30/18 10:30 76 38 H 93 12/30/18 10:00 73 31 H 115/66 97 12/30/18 09:30 74 32 H 96 12/30/18 09:00 70 32 H 112/53 L 96 12/30/18 08:30 69 26 H 96 12/30/18 08:00 37.3 C 70 22 108/56 L 92 12/30/18 07:30 72 22 111/58 L 98 12/30/18 07:25 74 19 98 12/30/18 07:00 70 22 127/61 12/30/18 05:50 63 17 98 12/30/18 05:30 63 18 101/53 L 97 12/30/18 05:10 65 20 101/52 L 99 12/30/18 05:00 64 20 98 12/30/18 04:30 65 18 101/48 L 98 12/30/18 04:00 36.7 C 67 18 103/50 L 98 11/12/19 03:30 69 19 109/55 L 97 12/30/18 03:00 69 22 111/64 96 Code Status & VTE Plan VTE Prophylaxis Plan VTE Prophylaxis will be ordered: Yes
[2018-12-30] MEDS ORDERED: SUCCINYLCHOLINE CHLORIDE 20 MG/ML 10 ML VIAL ONE (14:34)
[2018-12-30] MEDS ORDERED: LIDOCAINE HCL 2% 2 ML VIAL/AMP(20MG/ML) INFIL ONE (14:34)
[2018-12-30] MEDS ORDERED: DEXAMETHASONE SOD INJ 4 MG/ML VIAL ONE (14:34)
[2018-12-30] MEDS ORDERED: ONDANSETRON INJ 2 MG/ML 2 ML VIAL ONE (14:34)
[2018-12-30] MEDS ORDERED: LARYING-O-JET KIT (LTA) ONE (14:34)
[2018-12-30] MEDS ORDERED: PROPOFOL IV EMULSION 10 MG/ML 20 ML VIAL IV ONE (14:34)
[2018-12-30] MEDS ORDERED: fentaNYL citrate 100 MCG/2 ML VIAL ONE (14:35)
[2018-12-30] MEDS ORDERED: ePHEDrine sulfate 50 MG/ML SYR ONE (14:45)
[2018-12-30] MEDS ORDERED: SODIUM CHLORIDE 0.9% 1000ML 1,000 ML IV SCH (14:45)
[2018-12-30] MEDS ORDERED: fentaNYL citrate 100 MCG/2 ML VIAL IV PRN (14:59)
[2018-12-30] MEDS ORDERED: ATROPINE SULFATE 0.1 MG/ML 10ML SYR IV PRN (14:59)
[2018-12-30] MEDS ORDERED: ePHEDrine sulfate 50 MG/ML AMP IV PRN (14:59)
[2018-12-30] MEDS ORDERED: ONDANSETRON INJ 2 MG/ML 2 ML VIAL IV PRN (14:59)
--- NOTE | 2018-12-30 14:59 | Anesthesiology Consultation ---
Date of Service December 30, 2018 Assessment & Plan ASA [id number] Proposed Anesthesia Anesthesia Type: General Risk / Benefits Reviewed With: PT / POA / Parent / Guardian, Accepts Plan and Informed Consent Obtained Additional Comments: d/w patient and family the increased risk of post op intub ation History Surgery Operation Date: 12/30/18 07:50 Proposed Procedures p Endoscopic Retrograde Cholangiopancreatogram - Jarrett Rodrigues Height/Weight Height: 5 ft 6 in Weight: 93.3 kg Allergies Allergy/AdvReac Type Severity Reaction Status Date / Time No Known Allergies Allergy Unverified 12/29/18 17:14 Medications Home Medications Medication Instructions Recorded Confirmed Last Taken acetaminophen 500 mg tablet 500 mg PO Q4H PRN 12/03/18 12/29/18 Unknown aspirin 81 mg tablet,delayed 81 mg PO DAILY 12/03/18 12/29/18 Unknown release cholecalciferol (vitamin D3) 5,000 5,000 units PO DAILY 12/03/18 12/29/18 Unknown unit tablet furosemide 20 mg tablet 20 mg PO DAILY 12/03/18 12/29/18 Unknown levalbuterol tartrate 45 2 puffs INH Q4H PRN gm 12/03/18 12/29/18 Unknown mcg/actuation aerosol inhaler levothyroxine 88 mcg tablet 88 mcg PO DAILY 12/03/18 12/29/18 Unknown metoprolol succinate 50 mg 50 mg PO DAILY 12/03/18 12/29/18 Unknown tablet,extended release 24 hr potassium chloride 20 mEq 20 meq PO DAILY 12/03/18 12/29/18 Unknown tablet,extended release(part/cryst) ropinirole 1 mg tablet 1 mg PO QPM tab 12/03/18 12/29/18 Unknown famotidine 20 mg tablet 20 mg PO DAILY 12/16/18 12/29/18 Unknown fluticasone fur. 100 mcg-umeclid 1 puffs INH DAILY #60 ea 12/16/18 12/29/18 Unknown 62.5 mcg-vilant 25 mcg inhalat.powder gabapentin 100 mg capsule 100 mg PO DAILY 12/16/18 12/29/18 Unknown Active Medications Generic Name Dose Route Start Last Admin Trade Name Freq PRN Reason Stop Dose Admin Heparin Sodium (Porcine) 5,000 units 12/29/18 22:00 12/30/18 14:10 Heparin Sodium (Porcine) SQ 01/28/19 21:59 5,000 units Q8 JENNIFER Administration Hydromorphone HCl 0.5 mg 12/30/18 09:51 12/30/18 12:41 Dilaudid IV 01/13/19 09:50 0.5 mg Q2H PRN Administration Severe Pain Famotidine 20 mg/ Syringe 5 mls @ 2.5 mls/min 12/29/18 21:18 12/30/18 07:53 IV 01/28/19 21:17 2.5 mls/min Q12 JENNIFER Administration Piperacillin Sod/Tazobactam 115 mls @ 28.75 mls/hr 12/30/18 00:00 12/30/18 11:55 Sod 3.375 gm/ Dextrose IV 01/09/19 00:00 Infused Q8H JENNIFER Infusion Protocol Parenteral Electrolytes 1,000 mls @ 80 mls/hr 12/30/18 08:45 12/30/18 09:53 Normosol-R IV 01/29/19 08:44 80 mls/hr .[id number] JENNIFER Administration Ipratropium [place] 0.5 mg 12/29/18 23:00 12/30/18 11:05 Atrovent 0.02% 0.5mg/2.5ml INH 01/28/19 22:59 0.5 mg Q4R JENNIFER Administration Levalbuterol HCl 0.63 mg 12/29/18 23:00 12/30/18 11:05 Xopenex 0.63 Mg/3 Ml Neb INH 01/28/19 22:59 0.63 mg Q4R JENNIFER Administration Levothyroxine Sodium 88 mcg 12/30/18 06:30 12/30/18 05:52 Synthroid PO 01/29/19 06:29 Not Given DAILYBB JENNIFER Nitroglycerin 1 inch 12/29/18 20:00 12/29/18 20:40 Nitro-Bid 2% EXT 01/28/19 19:59 Not Given Q6 JENNIFER NPO Date Last Intake of Fluids: 12/29/18 Time Last Intake of Fluids: 09:00 Date Last Intake of Solids: 12/29/18 Time Last Intake of Solids: 09:00 Past Medical History Medical History Atrial fibrillation (Chronic) Hypertension (Chronic) Pacemaker (Chronic) Restless leg syndrome (Chronic) Past Surgical History Surgical History S/P cholecystectomy (Resolved) S/P thyroidectomy (Resolved) Social History Smoking Status: Former smoker tobacco type: cigarettes Smoking cigarettes per day: 20 Do You Dip or Chew Tobacco: No Smoking End Date: 2016 Hx Alcohol Use: No Hx Substance Use: No Review of Systems denies fever/cough/ colds/ chest pain/ SOB/ denies ND/CVA/Seizure pt uses cpap at night. was om bipap last night. increased O2 demend. currently on cpap. pt had an echo today. reviewed results. Physical Exam Vital Signs Last Vital Signs Temp 38 C H 12/30/18 14:38 Pulse 79 12/30/18 14:38 Resp 28 H 12/30/18 14:38 BP 114/68 12/30/18 14:38 Pulse Ox 95 12/30/18 14:38 Constitutional + acute distress and + obese ENMT Mouth: + edentulous Thyromental Distance: > or= 3.5 Finger Breadths Mallampati Class: III Neck + short neck and + thick neck; neck extension not limited Respiratory + tachypneic; no respiratory distress Auscultation: lungs clear to auscultation bilaterally Cardiovascular Rate/Rhythm: regular rate and regular rhythm Neurologic moves all extremities Psychiatric Orientation: alert and oriented x 3 Testing Laboratory Results 12/30/18 04:42 12/30/18 04:42 PT 11.7 Seconds (9.0-12.0) 12/30/18 04:42 INR 1.2 (0.9-1.1) H 12/30/18 04:42 APTT 26.8 Seconds (21.0-31.0) 12/30/18 04:42 Urine Color Dark Yellow 12/29/18 15:34 Urine Appearance Clear (Clear) 12/29/18 15:34 Urine pH 7.0 (4.5-7.5) 12/29/18 15:34 Ur Specific [place] 1.020 (1.000-1.030) 12/29/18 15:34 Urine Protein Negative (Negative) 12/29/18 15:34 Urine Glucose (UA) Negative (Negative) 12/29/18 15:34 Urine Ketones Negative (Negative) 12/29/18 15:34 Urine Nitrite Negative (Negative) 12/29/18 15:34 Ur Leukocyte Esterase Trace (Negative) H 12/29/18 15:34 Urine WBC (Auto) 1-5 /hpf (0-5) 12/29/18 15:34 Urine RBC (Auto) 0-4 /hpf (0-4) 12/29/18 15:34 U Hyaline Cast (Auto) 1-5 /lpf (0-5) 12/29/18 15:34 U Epithel Cells (Auto) 20-30 /lpf (0-5) H 12/29/18 15:34 Urine Bacteria (Auto) Negative (Negative) 12/29/18 15:34 12/30/18 11:41 POC Glucose 121 H
[2018-12-30] MEDS ORDERED: INDOMETHACIN 50 MG SUPP PR ONE (15:23)
--- NOTE | 2018-12-30 16:25 | GI REPORT ---
Patient Name: Marianne Zhang Procedure Date: 12/30/2018 2:45 PM Date of : 1940 Admit Type: Inpatient Age: 78 Gender: Female Attending MD: Jarrett Rodrigues MD Procedure: ERCP Providers: Jarrett Rodrigues MD Referring MD: Theodore López Md Indications: Suspected bile duct stone(s), Suspected ascending cholangitis Medicines: General Anesthesia Complications: No immediate complications. Estimated Blood Loss: Estimated blood loss was minimal. Procedure: Pre-Anesthesia Assessment: - Prior to the procedure, a History and Physical was performed, and patient medications, allergies and sensitivities were reviewed. The patient's tolerance of previous anesthesia was reviewed. - The risks and benefits of the procedure and the sedation options and risks were discussed with the patient. All questions were answered and informed consent was obtained. - The risks and benefits of the procedure and the sedation options and risks were discussed with the patient. All questions were answered and informed consent was obtained. After obtaining informed consent, the scope was passed under direct vision. Throughout the procedure, the patient's blood pressure, pulse, and oxygen saturations were monitored continuously. The Scope was introduced through the mouth, and advanced to the duodenum and used to inject contrast into the bile duct. The ERCP was somewhat difficult due to a large stone. Findings: The bile duct was deeply cannulated with the short-nosed traction sphincterotome. Contrast was injected. I personally interpreted the bile duct images. There was brisk flow of contrast through the ducts. Contrast extended to the main bile duct. The main bile duct was dilated, with a stone causing an obstruction. The largest diameter was 14 mm. The common bile duct contained filling defect(s) thought to be a stone and sludge. To discover objects, the biliary tree was swept with a 15 mm balloon starting at the upper third of the main bile duct. Many stones were removed. One stone remained. Sludge was swept from the duct. Pus was swept from the duct. One 10 Fr by 5 cm transpapillary plastic stent with two internal flaps was placed into the common bile duct. The stent was in good position. Impression: - A filling defect consistent with a stone and sludge was seen on the cholangiogram. - The entire main bile duct was dilated, with a stone causing an obstruction. - Choledocholithiasis was found. Partial removal was accomplished with balloon extraction; a stent was inserted. - The biliary tree was swept and sludge and pus were found. - One plastic stent was placed into the common bile duct. Recommendation: - Return patient to ICU for ongoing care. Jarrett Rodrigues M.D. Jarrett Rodrigues MD 12/30/2018 4:25:31 PM This report has been signed electronically. Note Initiated On: 12/30/2018 2:45 PM Number of Addenda: 0 I attest to the content of the Intraoperative Record and orders documented therein, exceptions below {[id number]}
--- NOTE | 2018-12-30 16:43 | Fluoroscopy Report ---
[place] ERCP biliary ductal CLINICAL HISTORY: 78 years-old Female presenting with ERCP. TECHNIQUE: Fluoroscopy was provided for endoscopic retrograde cholangiopancreatography. 2 fluoroscopi c image(s) recorded. COMPARISON: CT from 12/29/2018. FINDINGS: Procedure: An endoscope projects over the duodenum. A catheter was inserted into the bile ducts. A pl astic bile duct stent was placed. Peritoneal spillage: No evidence of peritoneal spillage of contrast. Extrahepatic bile ducts: Filling defects within the common bile duct may be present. Contrast extends into the small bowel. Intrahepatic bile ducts: Intrahepatic bile ducts not opacified. Fluoroscopy dosage (mGy): 58.83. Fluoroscopy time: 155.5 seconds. Number or time of high level fluoroscopy (HLF), digital spot, or digital subtraction images: 0. IMPRESSION: Fluoroscopic imaging provided for endoscopic cholangiogram. Possible placement of a plastic bile duct stent in the setting of choledocholithiasis. Please see the operative report for chest radiology jose luis rivas. Electronically signed by: Grey London M.D. 12/30/2018 4:41 PM
--- NOTE | 2018-12-30 17:10 | Anesthesiology Progress Note ---
Date of Service December 30, 2018 Anesthesia Post Procedure Vital Signs Vital Signs: Temp Pulse Pulse Resp BP BP Pulse Ox 12/30/18 15:01 80 26 H 90 12/30/18 14:38 100.4 F H 79 28 H 114/68 95 12/30/18 14:00 78 28 H 114/68 93 12/30/18 13:30 77 25 H 92 12/30/18 13:00 77 25 H 114/58 L 92 12/30/18 12:30 76 28 H 94 12/30/18 12:00 72 24 112/56 L 93 12/30/18 11:30 99.1 F 72 24 96 12/30/18 11:07 104 H 21 97 12/30/18 11:00 70 25 H 108/63 95 12/30/18 10:30 76 38 H 93 12/30/18 10:00 73 31 H 115/66 97 12/30/18 09:30 74 32 H 96 12/30/18 09:00 70 32 H 112/53 L 96 12/30/18 08:30 69 26 H 96 12/30/18 08:00 99.1 F 70 22 108/56 L 92 12/30/18 07:30 72 22 111/58 L 98 12/30/18 07:25 74 19 98 12/30/18 07:00 70 22 127/61 12/30/18 05:50 63 17 98 12/30/18 05:30 63 18 101/53 L 97 12/30/18 05:10 65 20 101/52 L 99 12/30/18 05:00 64 20 98 12/30/18 04:30 65 18 101/48 L 98 12/30/18 04:00 98.1 F 67 18 103/50 L 98 12/30/18 03:30 69 19 109/55 L 97 12/30/18 03:00 69 22 111/64 96 12/30/18 02:31 73 24 139/76 100 12/30/18 02:30 73 24 100 12/30/18 02:00 66 19 103/63 98 12/30/18 01:43 65 20 99 12/30/18 01:42 65 20 99 12/30/18 01:30 66 18 102/54 L 98 12/30/18 01:17 68 19 97/47 L 98 12/30/18 01:00 69 19 95/45 L 98 12/30/18 00:30 69 18 99/46 L 98 12/30/18 00:00 98.8 F 71 18 90/48 L 98 12/29/18 23:40 71 18 109/53 L 98 12/29/18 23:30 74 24 96 12/29/18 23:00 75 24 98/52 L 97 12/29/18 22:30 74 21 109/55 L 97 12/29/18 22:04 60 60 23 97 12/29/18 22:00 60 26 H 123/57 L 97 12/29/18 21:30 60 22 96 12/29/18 21:11 71 26 H 98 12/29/18 21:08 99.7 F H 65 60 28 H 123/55 L 95 12/29/18 20:45 60 24 123/62 97 12/29/18 20:30 60 26 H 125/66 99 12/29/18 20:21 84 35 H 95 12/29/18 20:19 60 28 H 137/72 98 12/29/18 20:00 76 31 H 169/72 H 96 12/29/18 19:45 73 26 H 201/112 H 100 12/29/18 19:32 80 42 H 95 12/29/18 19:31 81 43 H 215/84 H 89 L 12/29/18 19:30 89 35 H 94 12/29/18 19:29 220/110 H 96 12/29/18 19:00 76 29 H 142/68 H 97 12/29/18 18:30 70 24 142/67 H 96 12/29/18 18:00 71 31 H 141/69 H 94 12/29/18 17:31 73 92 12/29/18 17:30 75 24 141/72 H 93 Pain Intensity Right Abdomen: Pain Intensity: 5 Transfer of Care Handoff Completed per policy Notes Mental Status: alert / awake / arousable and participated in evaluation Patient Amnestic to Procedure: Yes Nausea / Vomiting: adequately controlled Pain: adequately controlled Airway Patency, RR, SpO2: stable & adequate BP & HR: stable & adequate Hydration State: stable & adequate Anesthetic Complications: no major complications apparent and Pt Satisfied with anesthetic care
[2018-12-30] MEDS: ASPIRIN 81 MG ECTAB PO SCH (17:14)
[2018-12-30] MEDS ORDERED: Nursing to Pharmacy Communication ONE (17:15)
--- NOTE | 2018-12-30 17:30 | Hospitalist Progress Note ---
Date of Service December 30, 2018 Assessment & Plan (1) Admitted to intensive care unit: The patient is admitted to the ICU with acute respiratory failure with hypoxia and hypercapnia and sepsis (2) Sepsis: source -> acute cholangitis as below Elevated lactic after lasix given suspect intravascularly deplete with noncardiogenic edema - Rx Normosol as per ICU. (3) Choledocholithiasis with obstruction: Appreciate GI management with ERCP. Partial removal accomplished and stent inserted. Will trend LFTs and lipase in AM. (4) Acute cholangitis: RUQ pain, increasing LFTs, pus on ERCP. Zosyn as per ICU management (5) Acute respiratory failure with hypoxia and hypercapnia: Suspect combination of sepsis, non-cardiogenic pulmonary edema and underlying COPD (no current exacerbation). Discontinued lasix. Management as per ICU. 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 (8) Restless leg syndrome: Restart ropinirole when felt appropriate as per ICU management (9) Hypothyroidism associated with surgical procedure: On levothyroxine 88 mcg p.o. daily - suspect can be restarted in AM as long as LFTs continue improve s/p ERCP (10) GERD (gastroesophageal reflux disease): Continue on IV famotidine to 20 mg Q12H (11) COPD (chronic obstructive pulmonary disease): Patient reports just started on Trelegy (switched from Anoro). If unable to get home med will switch tomorrow. FEV1/FVC 0.57, DLCO reduced. Moderate obstructive defect with positive bronchodilator response. (12) Obstructive sleep apnea: Patient to use her home CPAP overnight (setting 7cmH2O) (13) DVT prophylaxis: Heparin 5000 units Q8H Subjective Patient seen after ERCP. She reports no shortness of breath, chest pain, orthopnea or PND. Reoprts her abdominal pain much improved. Denies current chills. History revisited with the patient and in hindsight she'd been having abdominal RUQ pain for 2 weeks but much worse on the day of admission. Regarding her COPD she denies any recent exacerbations in the last year requiring oral or IV steroids. She reports she was recently changed to Trelegy but is unsure how this is helping. Currently denies any chest tightness, wheezing or cough. Review of Systems Review of Systems: All systems reviewed & are unremarkable except as noted in HPI & below Constitutional: + fatigue; no fever and no chills Respiratory: no cough, no dyspnea and no wheezing Physical Exam Constitutional: well developed, + ill appearing and + obese; no acute distress and no altered mental status Eyes: normal pupil size b/l equal exophthalmus ENMT: external ear and nose normal, oropharynx normal Neck: trachea midline, + short neck and + thick neck Respiratory: normal respiratory effort, lungs clear to auscultation (anteriorly) normal respiratory effort; no respiratory distress, no labored breathing and does not use accessory muscles Cardiovascular: Rate/Rhythm: regular rate and regular rhythm Heart Sounds: normal S1 and normal S2; no murmur Vessels: + JVD Extremities: no pedal edema and no edema Gastrointestinal (Abdomen): Inspection/Auscultation: abdomen normal to inspection and normal bowel sounds; abdomen not distended Percussion/Palpation: + abdomen tender (mild RUQ) and abdomen soft; no guarding and abdomen not rigid Musculoskeletal: Head/Neck/Chest: normocephalic and head atraumatic Skin: no rashes, warm and dry Neurologic: moves all extremities and awake; no focal motor deficits and not confused Psychiatric: A+Ox3, euthymic affect Results & Data Vital Signs (Past 12 Hours) Vital Signs Temp Pulse Pulse Resp BP BP Pulse Ox 12/30/18 15:01 80 26 H 90 12/30/18 14:38 100.4 F H 79 28 H 114/68 95 12/30/18 14:00 78 28 H 114/68 93 12/30/18 13:30 77 25 H 92 12/30/18 13:00 77 25 H 114/58 L 92 12/30/18 12:30 76 28 H 94 12/30/18 12:00 72 24 112/56 L 93 12/30/18 11:30 99.1 F 72 24 96 12/30/18 11:07 104 H 21 97 12/30/18 11:00 70 25 H 108/63 95 12/30/18 10:30 76 38 H 93 12/30/18 10:00 73 31 H 115/66 97 12/30/18 09:30 74 32 H 96 12/30/18 09:00 70 32 H 112/53 L 96 12/30/18 08:30 69 26 H 96 12/30/18 08:00 99.1 F 70 22 108/56 L 92 12/30/18 07:30 72 22 111/58 L 98 12/30/18 07:25 74 19 98 12/30/18 07:00 70 22 127/61 12/30/18 05:50 63 17 98 PG Care Time/CCT Total # of Minutes Spent Total Time Spent with Patient: Total time spent is greater than 50% in coordination of care (as documented) at patient's floor/unit and/or counseling patient: (1) Atrial fibrillation Atrial fibrillation type: paroxysmal Qualified Code(s): I48.0 - Paroxysmal atrial fibrillation (2) Sepsis Acute respiratory failure type: with hypoxia Sepsis acute organ dysfunction status: with acute organ dysfunction Sepsis type: sepsis due to unspecified organism Severe sepsis acute organ dysfunction type: acute respiratory failure Severe sepsis shock status: without septic shock Qualified Code(s): A41.9 - Sepsis, unspecified organism; R65.20 - Severe sepsis without septic shock; J96.01 - Acute respiratory failure with hypoxia (3) COPD (chronic obstructive pulmonary disease) COPD type: unspecified COPD Qualified Code(s): J44.9 - Chronic obstructive pulmonary disease, unspecified (4) Hypertension Hypertension type: essential hypertension Qualified Code(s): I10 - Essential (primary) hypertension (5) Choledocholithiasis with obstruction Cholangitis acuity: acute Cholangitis presence: with cholangitis Qualified Code(s): K80.33 - Calculus of bile duct with acute cholangitis with obstruction
--- NOTE | 2018-12-30 17:39 | Progress Note ---
DATE: 12/30/2018 The patient has abnormal liver tests with bilirubin of 6 and appears to have an infection, probably cholangitis. CAT scan shows what looks like stones and sludge in her bile duct. The patient was taken to the operating room and put under general anesthesia and an ERCP was performed. The papilla was status post sphincterotomy and the bile duct was easily cannulated. Injection showed a large stone in the bile duct, which was markedly dilated to about 15-17 mm. The stone itself was about 14 mm. There was also a large amount of stone, debris, sludge and pus that was withdrawn with the balloon after several passes. There was also a biliary clip that past as well. The large stone could not be removed as it was too large to pass through the distal bile duct. A 10-Danish 5 cm stent was placed to maintain patency of the biliary tree. IMPRESSION: The patient has cholangitis with stones and sludge and pus in the bile duct which was removed excluding one large 14 mm stone that remains. Biliary stent was placed and the large stone will need to be removed at an outside facility, probably with lithotripsy breaking up the stone. In the meantime, the stent will remain in place to maintain biliary patency and she will need to continue on IV antibiotics.
[2018-12-30] MEDS: NITROGLYCERIN 2% OINTMENT 30GM TUBE EXT SCH (18:33)
[2018-12-30] MEDS ORDERED: ALBUMIN 25% 50 ML IV ONE (19:47)
[2018-12-30] MEDS ORDERED: ALBUMIN 5% 250 ML IV SCH (20:30)
[2018-12-30 20:32] LABS: BUN Creatinine Ratio 15.6 (10-20); Calcium 8.6 mg/dl (8.5-10.1); Creatinine Clr Calc Pharmacy 27.3 ml/min; Est GFR (African American) 28.5; Est GFR (Non-African American) 24.6
[2018-12-30 20:33] LABS: Potassium 3.2 mmol/L (3.5-5.1)
[2018-12-30] MEDS ORDERED: ALBUMIN 5% 250 ML IV STA (20:33)
[2018-12-30] MEDS: POTASSIUM CHLORIDE / WTR 10 MEQ/100 ML PLCT IV SCH ×3 (20:58→23:30)
[2018-12-30] MEDS ORDERED: ROPINIROLE HCL 1 MG TABLET PO STA (22:00)
[2018-12-31 02:12] LABS: Basophils # (auto) 0.02 K/uL (0-0.2); Basophils % (auto) 0.1 %; Eosinophils # (auto) 0.01 K/uL (0-0.5); Eosinophils % (auto) 0.1 %; Hematocrit (blood only) 35.3 % (37-47); Hemoglobin 11.7 g/dL (12.0-16.0); Immature Granulocytes # (auto) 0.03 K/uL (0.00-0.02); Immature Granulocytes % (auto) 0.2 %; Lymphocytes # (auto) 0.62 K/uL (1.2-3.4); Lymphocytes % (auto) 4.4 %; Mean Corpuscular Hemoglobin 32.3 pg (25-34); Mean Corpuscular Hgb Conc 33.1 g/dL (32-36); Mean Corpuscular Volume 97.5 fL (80-100); Mean Platelet Volume 10.1 fL (7.4-10.4); Monocytes % (auto) 2.1 %; Neutrophils # (auto) 12.98 K/uL (1.4-6.5); Neutrophils % (auto) 93.1 %; Platelet Count 189 K/uL (130-400); RDW Coefficient of Variation 13.8 % (11.5-14.5); RDW Standard Deviation 49.6 fL (36.4-46.3); Red Blood Count 3.62 M/uL (4.2-5.4); White Blood Count 13.96 K/uL (4.8-10.8)
[2018-12-31 02:26] LABS: INR 1.4 (0.9-1.1); Partial Thromboplastin Ratio 1.3; Partial Thromboplastin Time 34.7 Seconds (21.0-31.0); Prothrombin Time 14.1 Seconds (9.0-12.0)
[2018-12-31 02:31] LABS: Albumin Level 2.6 gm/dl (3.4-5.0); BUN Creatinine Ratio 17.1 (10-20); Bilirubin Direct 4.5 mg/dl (0-0.2); Calcium 8.4 mg/dl (8.5-10.1); Creatinine Clr Calc Pharmacy 26.2 ml/min; Est GFR (African American) 27.1; Est GFR (Non-African American) 23.4; Magnesium 2.2 mg/dl (1.8-2.4); Potassium 3.5 mmol/L (3.5-5.1)
[2018-12-31 02:37] LABS: Bilirubin,Total 5.4 mg/dl (0.2-1); Phosphorus 3.7 mg/dl (2.5-4.9)
[2018-12-31] MEDS: LEVALBUTEROL HCL 0.63 MG/3 ML NEB INH SCH ×6 (03:22→23:15)
[2018-12-31] MEDS: IPRATROPIUM BROMIDE NEB SOLN 0.02% 2.5 ML VIAL INH SCH ×6 (03:22→23:15)
[2018-12-31] MEDS: POTASSIUM CHLORIDE / WTR 10 MEQ/100 ML PLCT IV SCH ×3 (03:53→06:27)
[2018-12-31] MEDS: NORMOSOL-R 1,000 ML IV SCH (04:13)
[2018-12-31 05:35] LABS: Hepatitis A Antibody IgM NON-REACTIVE (NON-REACTIVE); Hepatitis B Core Antibody IgM NON-REACTIVE (NON-REACTIVE)
[2018-12-31] MEDS: LEVOTHYROXINE SODIUM 88 MCG TABLET PO SCH (06:11)
[2018-12-31] MEDS: HEPARIN SOD 5,000 UNIT/0.5 ML VIAL SQ SCH ×3 (06:11→21:11)
--- NOTE | 2018-12-31 07:39 | Critical Care Progress Note ---
Date of Service December 31, 2018 Assessment & Plan (1) Admitted to intensive care unit: Reason Critically Ill: 78-year-old female who initially presented with a right upper quadrant abdominal pain in the ED and noted to have developed pulmonary edema requiring BiPAP. She had RUQ pain with now suspected ascending choleangitis. Neuro - [facility] ICU: Negative Alert oriented x3 Dilaudid 0.5mg q2H PRN pain Cardiac - past medical hx: diastolic dys CHF; HLD, HTN; tachy/juli s/p pacer 2010; Afib not on oral anticoagulation because of iliospoas retroperitoneal hematoma; currently on rate control with Toprol XR 50mg daily. CHFpatient currently takes daily Lasix -echocardiogram with normal EF; LA dilated; elevated PA pressures; Mild concentric LVH; Right ventricular systolic pressures elevated 40-50mm Hg -note of right sided pleural effusion but no effusion noted on CT abd at bases -Continue to monitor on telemetry -Monitor daily weights -Trop negative and ECG no signs of ischemia or acute process; in NSR -some soft BP readings overnight 90s/50s; currently 130/82 s/p increase in IVFs Respiratory - Hx of COPD recently saw Pulm which noted on Trelegy; [place] on CPAP; Hx: Pulmonary Papilloma -will continue BiPAP overnight, patient wears CPAP at home with setting 7 cm H2O for [place] -will hold diuresis and monitor strict I's and O's as creatinine bumped suggestive IVONNE from diuresis -Initial ABG 7.25/49/242/21; probably CO2 retainer; but with Lactic Acid elevated this is most likely a metabolic process/metabolic acidosis -CXR this morning showing mildly improved pulmonary edema; CT abdomen views of lungs show chronic scarring without signs of plueral effusion -Continue nebs -Continuous monitoring of oxygen saturation -Currently 3L NC GI - Exam consistent with biliary source with RUQ pain; notes same pain as prior acute cholecystitis; hx of cholecystectomy in 2017 with ERCP with stent placements enterotomy; lap selina with stent removal. CT Abd w/o contrast showed pneumobilia w/o abdominal bowel wall free air; Liver US showed intrahepatic and extrahepatic biliary ductal dilatation suggestive choledocholithiasis; hepatic steatosis w/mild nodularity of liver. Acute choleangitis being covered with Zosyn; started on admission total Bilirubin was 2.9 on admission --> 6.2 --> 5.4 this AM AST/ALT initially was 485/ 326 then 278/284 --> now 103/165 Ammonia was WNL; Hep C was negative; Hep B profile pending continue with Pepcid 20mg q12h. INR 1.4 Hx of retropenitoneal right iliosposas hematoma as to why not on anti- coagulation for afib. ERCP showed - Filling defect consistent with a stone and sludge seen on the cholangiogram. - The entire main bile duct was dilated, with a stone causing an obstruction. - Choledocholithiasis was found. Partial removal was accomplished with balloon extraction; a stent was inserted. - The biliary tree was swept and sludge and pus were found. - One plastic stent was placed into the common bile duct. - Many stones were removed, but one stone (14mm) remained as it was too large to pass through the distal bile duct. Large stone will need to be removed at an outside facility, probably with lithotripsy breaking up the stone. RENAL/LYTES - Sodium and potassium WNL; Mag WNL Had elevated Ca 10.5 now 9.4 in setting of receiving Lasix 60mg in ED Phos WNL Creat went from 1.28 to 1.74; this am suggestive of IVONNE from diuresis; holding diuretics Normosol was increased from 80mL/hr to 120mL/hr in setting of hypovolumemia and elevated creatinine from diuresis with some soft BP readings overnight 90s/50s; currently 130/82 Tolerating PO intake this AM will discontinue IVFs - Foleystrict I's and O's ENDO - ThyroidectomyTSH WNL, hold home dose Synthroid, okay to hold for a day or two if needing procedure. HEME - H&H stable, continue monitor with routine CBCs Leukocytosis initially 14 --> 20.8 --> 13.96 Platelets WNL ID - Presumed sepsis from acute choleangitis started Zosyn and will continue; patient afebrile but had leukocytosis -Urinalysis unremarkable, no opacities consistent with pneumonia on initial chest x-ray -blood cultures pending, lactate elevated consistent with metabolic acidosis LINES/IV ACCESS - Peripheral IVs DVT PROPHYLAXIS - SCDs; Heparin (2) Atrial fibrillation: (3) S/P cholecystectomy: (4) S/P thyroidectomy: (5) Elevated LFTs: (6) Right upper quadrant abdominal pain: (7) Hypertension: (8) Pacemaker: (9) Pulmonary edema: (10) Metabolic acidosis, increased anion gap: (11) Acute cholangitis: Supervising Physician Co-Signing Physician Notes Patient seen and examined this morning. Discussed with the resident on rounds. Independently reviewed data. Discussed with general surgery on a.m. rounds as well. Impression: 78-year-old female with a sending cholangitis. Status post ERCP with stent placement and removal of common bile duct stones 12/30. Her white count is improved. Lactate is decreasing. She remains hemodynamically stable. She continues to have pain and there was a retained stone which was unable to be retrieved by ERCP. Recommendations: 1. Ascending cholangitis: Continue antibiotics in the form of Zosyn. Defer transition to oral antibiotics to GI and the hospitalist service when she is on the floor and stable. Duration of antibiotics to be determined by GI. 2. Retained common bile duct stone. Management per GI. Agree with surgical assessment that common bile duct exploration in this patient would have a high morbidity. Defer to GI additional long-term management strategies and management of common bile duct stent. Defer to GI and the hospitalist service whether not the patient needs to be transferred to an alternative Medical Center which may be able to intervene on her retained common bile duct stone. 3. Obstructive lung disease: Continue inhalers. No indication for steroids. 4. Chronic kidney disease with acute kidney injury: Creatinine slightly increased today. Hold any additional diuretics. The patient is taking p.o. so we will Hep-Lock IV fluids and continue to follow kidney function. Patient appears appropriate to transfer out of the ICU. Will sign off when she leaves the intensive care unit. Feel free to contact us with additional pulmonary critical care issues. Subjective Marianne notes feeling weak this AM and also that her RUQ was starting to get worse . She denies chest pain, shortness of breath, nausea, vomiting, dizziness, diarrhea. Physical Exam Constitutional: WD/WN, vitals as above + ill appearing, + obese and cooperative; no altered mental status Eyes: EOM intact bilaterally ENMT: external ear and nose normal, oropharynx normal Neck: normal visual inspection and trachea midline Respiratory: no respiratory distress, no labored breathing and does not use accessory muscles Cardiovascular: Rate/Rhythm: regular rate and regular rhythm Extremities: no pedal edema Gastrointestinal (Abdomen): Inspection/Auscultation: normal bowel sounds Percussion/Palpation: + abdomen tender (RUQ) and + guarding Musculoskeletal: Head/Neck/Chest: normocephalic and head atraumatic Skin: no rashes, warm and dry Neurologic: moves all extremities and awake Psychiatric: Orientation: alert and cooperative Affect: + anxious affect Results & Data Vital Signs (Past 12 Hours) Vital Signs Temp Pulse Pulse Resp BP Pulse Ox 12/31/18 06:30 67 23 99 12/31/18 06:15 66 20 103/61 96 12/31/18 06:00 66 23 95/53 L 96 12/31/18 05:45 65 24 103/58 L 98 12/31/18 05:30 66 22 109/60 99 12/31/18 05:15 66 24 104/59 L 98 12/31/18 05:00 69 14 111/63 98 12/31/18 04:45 72 17 93/55 L 96 12/31/18 04:30 66 18 91/51 L 96 12/31/18 04:15 67 21 98/55 L 99 12/31/18 04:00 36.5 C 74 31 H 104/56 L 100 12/31/18 03:45 65 16 100/53 L 96 12/31/18 03:30 61 26 H 117/57 L 100 12/31/18 03:25 65 21 99 12/31/18 03:15 61 17 102/55 L 97 12/31/18 03:00 63 25 H 103/57 L 99 12/31/18 02:45 64 25 H 94/52 L 99 12/31/18 02:30 64 19 92/52 L 98 12/31/18 02:15 66 23 99/54 L 100 12/31/18 02:05 70 24 98/58 L 98 12/31/18 02:00 65 24 82/46 L 95 12/31/18 01:45 67 19 90/46 L 95 12/31/18 01:30 68 21 88/47 L 96 12/31/18 01:15 69 21 93/49 L 97 12/31/18 01:00 68 23 99/52 L 97 12/31/18 00:45 71 18 95/52 L 97 12/31/18 00:30 71 18 100/51 L 99 12/31/18 00:15 71 18 100/54 L 97 12/31/18 00:00 36.4 C L 70 18 88/47 L 96 12/30/18 23:45 69 22 91/49 L 99 12/30/18 23:34 68 20 99 12/30/18 23:30 69 23 106/58 L 99 12/30/18 23:15 70 25 H 87/51 L 95 12/30/18 23:00 70 19 88/50 L 95 12/30/18 22:45 70 19 81/47 L 96 12/30/18 22:30 71 22 98/59 L 98 12/30/18 22:15 68 23 89/52 L 98 12/30/18 22:00 77 22 110/71 95 12/30/18 21:45 73 23 90/46 L 92 12/30/18 21:31 76 22 95/42 L 91 12/30/18 21:30 77 26 H 91 12/30/18 21:22 77 24 93/49 L 91 12/30/18 21:16 77 27 H 70/57 L 92 12/30/18 21:15 79 27 H 91 12/30/18 21:00 71 23 99/46 L 97 12/30/18 20:45 69 18 92/46 L 97 12/30/18 20:30 69 20 80/36 L 96 12/30/18 20:15 70 19 80/35 L 96 12/30/18 20:00 36.6 C 69 19 95/44 L 96 12/30/18 19:45 71 19 101/46 L 96 12/30/18 19:41 72 23 83/44 L 96 12/30/18 19:39 71 18 80/46 L 97 12/30/18 19:30 70 17 85/41 L 97 PG Care Time/CCT Total # of Minutes Spent Total Time Spent with Patient: Total time spent is greater than 50% in coordination of care (as documented) at patient's floor/unit and/or counseling patient: Resident Activity Tracking Resident Involvement: Resident Care Provided Care Provided: Adult Hospital Medicine (ICU) (1) Atrial fibrillation Atrial fibrillation type: paroxysmal Qualified Code(s): I48.0 - Paroxysmal atrial fibrillation (2) Pulmonary edema Chronicity: acute Qualified Code(s): J81.0 - Acute pulmonary edema (3) Hypertension Hypertension type: essential hypertension Qualified Code(s): I10 - Essential (primary) hypertension
[2018-12-31] MEDS: PIPERACILLIN/TAZOBACTAM 3.375 GM in DEXTROSE 5% 100 ML IV SCH ×2 (08:18→16:41)
[2018-12-31] MEDS: FAMOTIDINE 20 MG in SYRINGE 3 ML IV SCH (08:19)
[2018-12-31] MEDS: ASPIRIN 81 MG ECTAB PO SCH (08:19)
--- NOTE | 2018-12-31 08:34 | Anesthesiology Progress Note ---
Date of Service December 31, 2018 Anesthesia Post Procedure Vital Signs Vital Signs: Temp Pulse Pulse Resp BP BP Pulse Ox 12/31/18 07:54 88 23 92 12/31/18 06:30 67 23 99 12/31/18 06:15 66 20 103/61 96 12/31/18 06:00 66 23 95/53 L 96 12/31/18 05:45 65 24 103/58 L 98 12/31/18 05:30 66 22 109/60 99 12/31/18 05:15 66 24 104/59 L 98 12/31/18 05:00 69 14 111/63 98 12/31/18 04:45 72 17 93/55 L 96 12/31/18 04:30 66 18 91/51 L 96 12/31/18 04:15 67 21 98/55 L 99 12/31/18 04:00 36.5 C 74 31 H 104/56 L 100 12/31/18 03:45 65 16 100/53 L 96 12/31/18 03:30 61 26 H 117/57 L 100 12/31/18 03:25 65 21 99 12/31/18 03:15 61 17 102/55 L 97 12/31/18 03:00 63 25 H 103/57 L 99 12/31/18 02:45 64 25 H 94/52 L 99 12/31/18 02:30 64 19 92/52 L 98 12/31/18 02:15 66 23 99/54 L 100 12/31/18 02:05 70 24 98/58 L 98 12/31/18 02:00 65 24 82/46 L 95 12/31/18 01:45 67 19 90/46 L 95 12/31/18 01:30 68 21 88/47 L 96 12/31/18 01:15 69 21 93/49 L 97 12/31/18 01:00 68 23 99/52 L 97 12/31/18 00:45 71 18 95/52 L 97 12/31/18 00:30 71 18 100/51 L 99 12/31/18 00:15 71 18 100/54 L 97 12/31/18 00:00 36.4 C L 70 18 88/47 L 96 12/30/18 23:45 69 22 91/49 L 99 12/30/18 23:34 68 20 99 12/30/18 23:30 69 23 106/58 L 99 12/30/18 23:15 70 25 H 87/51 L 95 12/30/18 23:00 70 19 88/50 L 95 12/30/18 22:45 70 19 81/47 L 96 12/30/18 22:30 71 22 98/59 L 98 12/30/18 22:15 68 23 89/52 L 98 12/30/18 22:00 77 22 110/71 95 12/30/18 21:45 73 23 90/46 L 92 12/30/18 21:31 76 22 95/42 L 91 12/30/18 21:30 77 26 H 91 12/30/18 21:22 77 24 93/49 L 91 12/30/18 21:16 77 27 H 70/57 L 92 12/30/18 21:15 79 27 H 91 12/30/18 21:00 71 23 99/46 L 97 12/30/18 20:45 69 18 92/46 L 97 12/30/18 20:30 69 20 80/36 L 96 12/30/18 20:15 70 19 80/35 L 96 12/30/18 20:00 36.6 C 69 19 95/44 L 96 12/30/18 19:45 71 19 101/46 L 96 12/30/18 19:41 72 23 83/44 L 96 12/30/18 19:39 71 18 80/46 L 97 12/30/18 19:30 70 17 85/41 L 97 12/30/18 19:15 67 17 89/45 L 98 12/30/18 19:00 64 17 92/46 L 99 12/30/18 18:50 65 18 98 12/30/18 18:45 64 18 89/51 L 98 12/30/18 17:30 84 24 106/55 L 93 12/30/18 17:15 67 21 96/51 L 94 12/30/18 17:00 74 25 H 112/56 L 94 12/30/18 16:45 37.3 C 76 23 119/55 L 94 12/30/18 16:40 84 30 H 93 12/30/18 15:01 80 26 H 90 12/30/18 14:38 38 C H 79 28 H 114/68 95 12/30/18 14:00 78 28 H 114/68 93 12/30/18 13:30 77 25 H 92 12/30/18 13:00 77 25 H 114/58 L 92 12/30/18 12:30 76 28 H 94 12/30/18 12:00 72 24 112/56 L 93 12/30/18 11:30 37.3 C 72 24 96 12/30/18 11:07 104 H 21 97 12/30/18 11:00 70 25 H 108/63 95 12/30/18 10:30 76 38 H 93 12/30/18 10:00 73 31 H 115/66 97 12/30/18 09:30 74 32 H 96 12/30/18 09:00 70 32 H 112/53 L 96 Pain Intensity Right Abdomen: Pain Intensity: 2 Notes Mental Status: alert / awake / arousable Patient Amnestic to Procedure: Yes Nausea / Vomiting: adequately controlled Pain: adequately controlled Airway Patency, RR, SpO2: stable & adequate BP & HR: stable & adequate Hydration State: stable & adequate Anesthetic Complications: no major complications apparent
--- NOTE | 2018-12-31 09:28 | Surgery Progress Note ---
Date of Service December 31, 2018 Assessment & Plan (1) Acute cholangitis: clinically improving. wbc improved. Tbili down slightly persistent retained stone...pt would be an extremely high risk for a CBD exploration surgery. At her age/comorbidities I would recommend keeping stents if needed with periodic exchange as needed. If she continues to have cholestasis/recurrent cholangitis despite stent in place we may then need to reconsider surgical options. (2) Choledocholithiasis with obstruction: Subjective pt feeling much better than at admission. pain improved. no new complaints. Physical Exam Physical Exam: alert/oriented. nad no respiratory distress abd: soft. minimal RUQ ttp. no peritoneal signs. Results & Data Vital Signs (Past 12 Hours) Vital Signs Temp Pulse Pulse Resp BP Pulse Ox 12/31/18 07:54 88 23 92 12/31/18 06:30 67 23 99 12/31/18 06:15 66 20 103/61 96 12/31/18 06:00 66 23 95/53 L 96 12/31/18 05:45 65 24 103/58 L 98 12/31/18 05:30 66 22 109/60 99 12/31/18 05:15 66 24 104/59 L 98 12/31/18 05:00 69 14 111/63 98 12/31/18 04:45 72 17 93/55 L 96 12/31/18 04:30 66 18 91/51 L 96 12/31/18 04:15 67 21 98/55 L 99 12/31/18 04:00 36.5 C 74 31 H 104/56 L 100 12/31/18 03:45 65 16 100/53 L 96 12/31/18 03:30 61 26 H 117/57 L 100 12/31/18 03:25 65 21 99 12/31/18 03:15 61 17 102/55 L 97 12/31/18 03:00 63 25 H 103/57 L 99 12/31/18 02:45 64 25 H 94/52 L 99 12/31/18 02:30 64 19 92/52 L 98 12/31/18 02:15 66 23 99/54 L 100 12/31/18 02:05 70 24 98/58 L 98 12/31/18 02:00 65 24 82/46 L 95 12/31/18 01:45 67 19 90/46 L 95 12/31/18 01:30 68 21 88/47 L 96 12/31/18 01:15 69 21 93/49 L 97 12/31/18 01:00 68 23 99/52 L 97 12/31/18 00:45 71 18 95/52 L 97 12/31/18 00:30 71 18 100/51 L 99 12/31/18 00:15 71 18 100/54 L 97 12/31/18 00:00 36.4 C L 70 18 88/47 L 96 12/30/18 23:45 69 22 91/49 L 99 12/30/18 23:34 68 20 99 12/30/18 23:30 69 23 106/58 L 99 12/30/18 23:15 70 25 H 87/51 L 95 12/30/18 23:00 70 19 88/50 L 95 12/30/18 22:45 70 19 81/47 L 96 12/30/18 22:30 71 22 98/59 L 98 12/30/18 22:15 68 23 89/52 L 98 12/30/18 22:00 77 22 110/71 95 12/30/18 21:45 73 23 90/46 L 92 12/30/18 21:31 76 22 95/42 L 91 12/30/18 21:30 77 26 H 91 PG Care Time/CCT Total # of Minutes Spent Total Time Spent with Patient: Total time spent is greater than 50% in coordination of care (as documented) at patient's floor/unit and/or counseling patient: (1) Choledocholithiasis with obstruction Cholangitis presence: with cholangitis Cholangitis acuity: acute Qualified Code(s): K80.33 - Calculus of bile duct with acute cholangitis with obstruction
--- NOTE | 2018-12-31 11:15 | Hospitalist Progress Note ---
Date of Service December 31, 2018 Assessment & Plan (1) Abdominal pain: Concern for very tender abdomen in all 4 quadrants on palpation, she is having a pain in the right upper quadrant in the previous time I saw her post ERCP yesterday. Discussed with Dr. Hughes and given possibility this was new since this morning she underwent CT A/P without contrast to reassess her abdomen with repeat labs. CT did not show any new concerning pathology and lab work all improving. She also appeared much improved when re-evaluated in the afternoon after IV fluids restarted. (2) Sepsis: source -> acute cholangitis as below Mildly low blood pressure and tachycardia with negative fluid balance. Suspect she remains intravascularly deplete and patient given 500ml bolus lactated Ringer's. Present on Admission?: Yes (3) Bacteremia: Gram-negative bacilli growing in blood culture 1/2. Continue Zosyn awaiting final sensitivities (4) Choledocholithiasis with obstruction: Appreciate GI management with ERCP. Partial removal accomplished and stent inserted. Improving WBC and LFTs. Lipase WNL. Eventual need for tertiary care to repeat ERCP and remove large stone but for now obstruction appears to have resolved. (5) Acute cholangitis: RUQ pain, increasing LFTs, pus on ERCP. Continue IV Zosyn pending further clinical improvement and blood culture sensitivities (6) Acute respiratory failure with hypoxia and hypercapnia: Now resolved and stable on room air, without shortness of breath. Suspect combination of sepsis, non-cardiogenic pulmonary edema and underlying COPD (no current exacerbation). 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 daily (11) GERD (gastroesophageal reflux disease): Famotidine 20 mg p.o. daily (12) COPD (chronic obstructive pulmonary disease): Restarted on Trelegy FEV1/FVC 0.57, DLCO reduced. Moderate obstructive defect with positive bronchodilator response. (13) Obstructive sleep apnea: Patient to use her home CPAP overnight (setting 7cmH2O) (14) DVT prophylaxis: Heparin 5000 units Q8H Subjective Patient was seen around 11am after being transferred out of the ICU. She appeared more drowsy and seen in the previous night. She was having considerable abdominal pain but reports it was similar in the morning when seen by Dr. Hughes. She denies any nausea, vomiting. She is passing lots of gas. She denies any chest pain, shortness of breath, dizziness, orthopnea, PND. Review of Systems Review of Systems: All systems reviewed & are unremarkable except as noted in HPI & below Constitutional: + fatigue; no fever and no chills Physical Exam Constitutional: well developed, + ill appearing, + obese and + lethargic; no acute distress and no altered mental status Eyes: normal pupil size Exophthalmos bilaterally ENMT: Ears: no external ear abnormality Nose: no external nose abnormality Mouth: + dry oral mucous membranes Neck: trachea midline, + short neck and + thick neck Respiratory: normal respiratory effort; no respiratory distress, no labored br eathing and does not use accessory muscles Auscultation: + diminished lung sounds (Bibasal); no crackles, no rales, no rhonchi and no wheezes Cardiovascular: Rate/Rhythm: regular rate and regular rhythm Heart Sounds: normal S1 and normal S2; no murmur Extremities: no pedal edema Gastrointestinal (Abdomen): Inspection/Auscultation: abdomen normal to inspection and + hypoactive bowel sounds; abdomen not distended Percussion/Palpation: + abdomen tender (moderate in all 4 quadrants), + guarding (RUQ) and abdomen soft; abdomen not rigid Musculoskeletal: no cyanosis or clubbing, extremities motor strength 5/5 Skin: no rashes, warm and dry Neurologic: moves all extremities and awake; no focal motor deficits and not confused Psychiatric: Orientation: alert and oriented x 3 Affect: + flat affect Results & Data Vital Signs (Past 12 Hours) Vital Signs Temp Pulse Pulse Resp BP Pulse Ox 12/31/18 10:37 68 21 91/50 L 92 12/31/18 10:15 67 19 87/52 L 92 12/31/18 10:00 68 16 101/51 L 93 12/31/18 09:45 75 17 81/45 L 91 12/31/18 09:30 70 16 92/52 L 93 12/31/18 09:15 69 20 90/46 L 92 12/31/18 09:00 75 23 101/57 L 92 12/31/18 08:45 76 22 100/54 L 93 12/31/18 08:30 85 22 124/61 93 12/31/18 08:15 80 27 H 112/59 L 94 12/31/18 08:00 75 24 129/60 100 12/31/18 07:54 88 23 92 12/31/18 07:45 79 34 H 119/62 91 12/31/18 07:00 64 21 107/56 L 98 12/31/18 06:30 67 23 99 12/31/18 06:15 66 20 103/61 96 12/31/18 06:00 66 23 95/53 L 96 12/31/18 05:45 65 24 103/58 L 98 12/31/18 05:30 66 22 109/60 99 12/31/18 05:15 66 24 104/59 L 98 12/31/18 05:00 69 14 111/63 98 12/31/18 04:45 72 17 93/55 L 96 12/31/18 04:30 66 18 91/51 L 96 12/31/18 04:15 67 21 98/55 L 99 12/31/18 04:00 97.7 F 74 31 H 104/56 L 100 12/31/18 03:45 65 16 100/53 L 96 12/31/18 03:30 61 26 H 117/57 L 100 12/31/18 03:25 65 21 99 12/31/18 03:15 61 17 102/55 L 97 12/31/18 03:00 63 25 H 103/57 L 99 12/31/18 02:45 64 25 H 94/52 L 99 12/31/18 02:30 64 19 92/52 L 98 12/31/18 02:15 66 23 99/54 L 100 12/31/18 02:05 70 24 98/58 L 98 12/31/18 02:00 65 24 82/46 L 95 12/31/18 01:45 67 19 90/46 L 95 12/31/18 01:30 68 21 88/47 L 96 12/31/18 01:15 69 21 93/49 L 97 12/31/18 01:00 68 23 99/52 L 97 12/31/18 00:45 71 18 95/52 L 97 12/31/18 00:30 71 18 100/51 L 99 12/31/18 00:15 71 18 100/54 L 97 12/31/18 00:00 97.5 F L 70 18 88/47 L 96 12/30/18 23:45 69 22 91/49 L 99 12/30/18 23:34 68 20 99 12/30/18 23:30 69 23 106/58 L 99 12/30/18 23:15 70 25 H 87/51 L 95 PG Care Time/CCT Total # of Minutes Spent Total Time Spent with Patient: Total time spent is greater than 50% in coordination of care (as documented) at patient's floor/unit and/or counseling patient: (1) Sepsis Sepsis type: sepsis due to unspecified organism Sepsis acute organ dysfunction status: with acute organ dysfunction Severe sepsis acute organ dysfunction type: acute respiratory failure Acute respiratory failure type: with hypoxia Severe sepsis shock status: without septic shock Qualified Code(s): A41.9 - Sepsis, unspecified organism; R65.20 - Severe sepsis without septic shock; J96.01 - Acute respiratory failure with hypoxia (2) Choledocholithiasis with obstruction Cholangitis presence: with cholangitis Cholangitis acuity: acute Qualified Code(s): K80.33 - Calculus of bile duct with acute cholangitis with obstruction (3) Atrial fibrillation Atrial fibrillation type: paroxysmal Qualified Code(s): I48.0 - Paroxysmal atrial fibrillation (4) Hypertension Hypertension type: essential hypertension Qualified Code(s): I10 - Essential (primary) hypertension (5) COPD (chronic obstructive pulmonary disease) COPD type: unspecified COPD Qualified Code(s): J44.9 - Chronic obstructive pulmonary disease, unspecified
[2018-12-31] MEDS ORDERED: LACTATED RINGER'S 1,000 ML IV ONE (11:18)
[2018-12-31 11:57] LABS: Basophils # (auto) 0.01 K/uL (0-0.2); Basophils % (auto) 0.1 %; Eosinophils # (auto) 0.06 K/uL (0-0.5); Eosinophils % (auto) 0.6 %; Hematocrit (blood only) 36.3 % (37-47); Hemoglobin 12.1 g/dL (12.0-16.0); Immature Granulocytes # (auto) 0.04 K/uL (0.00-0.02); Immature Granulocytes % (auto) 0.4 %; Lymphocytes # (auto) 0.54 K/uL (1.2-3.4); Mean Corpuscular Hemoglobin 32.1 pg (25-34); Mean Corpuscular Volume 96.3 fL (80-100); Monocytes # (auto) 0.33 K/uL (0.11-0.59); Neutrophils # (auto) 9.84 K/uL (1.4-6.5); Neutrophils % (auto) 90.9 %; Platelet Count 176 K/uL (130-400); RDW Coefficient of Variation 13.8 % (11.5-14.5); RDW Standard Deviation 48.8 fL (36.4-46.3); Red Blood Count 3.77 M/uL (4.2-5.4); White Blood Count 10.82 K/uL (4.8-10.8)
[2018-12-31 11:59] LABS: Mean Corpuscular Hgb Conc 33.3 g/dL (32-36)
[2018-12-31 12:05] LABS: INR 1.3 (0.9-1.1)
[2018-12-31 12:15] LABS: Albumin Level 2.6 gm/dl (3.4-5.0); BUN Creatinine Ratio 19.7 (10-20); Calcium 8.7 mg/dl (8.5-10.1); Creatinine Clr Calc Pharmacy 29.1 ml/min; Est GFR (African American) 30.7; Est GFR (Non-African American) 26.5; Potassium 3.4 mmol/L (3.5-5.1)
[2018-12-31 12:25] LABS: Bilirubin,Total 4.9 mg/dl (0.2-1); Total Protein 6.4 gm/dl (6.4-8.2)
--- NOTE | 2018-12-31 12:40 | CT Scan Report ---
CT SCAN OF THE ABDOMEN AND PELVIS WITHOUT CONTRAST CLINICAL HISTORY: worsening abdominal pain s/p ERCP, ?peritonitis COMPARISON STUDY: 12/29/2012 TECHNIQUE: CT scan of the abdomen and pelvis was performed from the lung bases to the proximal femurs . Images are reviewed in the axial, sagittal, and coronal planes. IV contrast was not administered fo r this examination. A dose lowering technique was utilized adhering to the principles of ALARA. CT DOSE: 1141.59 mGy.cm FINDINGS: Lower chest: There are small bilateral pleural effusions. The heart is enlarged. There are enlarged s ubcarinal lymph nodes. There are dependent airspace opacities, likely atelectatic although a pneumoni a could appear similar. Liver: There is pneumobilia. There is a very subtle 16mm hyperdense focus within the right hepatic lo be of questionable significance. This was not clearly visualized in the prior study. Gallbladder: The gallbladder is surgically absent. There is a biliary enteric stent present. There ar e polypoid masses/filling defects within the common hepatic/common bile duct. These could represent n oncalcified stones however neoplasm cannot be excluded. Spleen: Normal in size and attenuation. Pancreas: Unremarkable. Adrenal glands: There is a low-density 14 mm left adrenal nodule likely representing an adenoma. Kidneys: There is no hydronephrosis. No renal, ureteral, or bladder calculi are visualized. Bowel: There are no transition zones to indicate bowel obstruction. There is colonic diverticulosis. There is no evidence of acute peridiverticular inflammatory change. There is mild appendiceal dilatat ion without evidence of significant periappendiceal inflammatory change. Correlation with clinical sy mptoms will be necessary. The appendix measures 9 mm in maximal diameter. Peritoneum: There is no free air. There is no ascites. There is stable thickening of the right procurement engineer ior abdominal wall fascia. Vasculature: The abdominal aorta is normal in course and caliber. Adenopathy: None. Pelvic viscera: There is air within the bladder, statistically iatrogenic. Skeletal structures: No destructive osseous lesions are seen. IMPRESSION: 1. Interval placement of a biliary enteric stent with ductal decompression 2. Polypoid masses/filling defects near the common hepatic/common bile duct junction. Diagnostic cons iderations include noncalcified stones versus polypoid neoplasm 3. Subtle 16mm hyperdense focus in the right hepatic lobe. This may represent residual contrast is no corresponding lesion was visualized in the prior study 4. No evidence of bowel obstruction. No evidence of free air 5. Pandiverticulosis. No evidence of acute diverticulitis 6. Small bilateral pleural effusions with basilar parenchymal opacities likely atelectatic although p neumonia could appear similar 7. Mild appendiceal dilatation (9 mm) without definitive periappendiceal inflammatory change. Clinica l correlation will be necessary, as an early acute appendicitis cannot be excluded Electronically signed by: Aman De Jesus M.D. 12/31/2018 12:39 PM
[2018-12-31] MEDS: HYDROmorphone INJ 0.5 MG/0.5 ML SYR IV PRN (12:46)
[2018-12-31] MEDS ORDERED: OXYCODONE HCL IR 5 MG TAB (IMMEDIATE RELEASE) PO PRN (12:56)
[2018-12-31] MEDS: FLUTICASONE/UMECLIDIN/VILANTER INH SCH (13:42)
--- NOTE | 2018-12-31 16:00 | Gastroenterology Progress Note ---
Date of Service December 31, 2018 Assessment & Plan (1) Elevated LFTs: RUQ guarding, stones in CBD s/p partial removal with ERCP and stent, elev LFTS, ? portal venous gas, elevated WBC, elev lactic acid Discussed with patient, attending and family that stent working but will need eventual tertiary center to do ERCP and remove the large stone. Subjective CC abd pain HPI Family with patient. She states RUQ still significant but improved versus admit. CBC and CBP twice today with improvement in LFTS and WBC. CT done today for low BP no acute problems. Review of Systems Respiratory: no dyspnea Cardiovascular: no chest pain Physical Exam Constitutional: WD/WN, vitals as above Respiratory: normal respiratory effort, lungs clear to auscultation Gastrointestinal (Abdomen): pos bs, soft, some guarding RUQ but no rebound Skin: normal turgor Neurologic: patellar DTR's 2+ bilat, sensation intact Psychiatric: A+Ox3, euthymic affect Results & Data Vital Signs (Past 12 Hours) Vital Signs Temp Pulse Pulse Pulse Resp BP BP 12/31/18 15:07 74 18 12/31/18 12:49 76 108/65 12/31/18 11:24 36.6 C 74 18 114/69 12/31/18 11:14 88 18 12/31/18 10:37 68 21 91/50 L 12/31/18 10:15 67 19 87/52 L 12/31/18 10:00 68 16 101/51 L 12/31/18 09:45 75 17 81/45 L 12/31/18 09:30 70 16 92/52 L 12/31/18 09:15 69 20 90/46 L 12/31/18 09:00 75 23 101/57 L 12/31/18 08:45 76 22 100/54 L 12/31/18 08:30 85 22 124/61 12/31/18 08:15 80 27 H 112/59 L 12/31/18 08:00 75 24 129/60 12/31/18 07:54 88 23 12/31/18 07:45 79 34 H 119/62 12/31/18 07:00 64 21 107/56 L 12/31/18 06:30 67 23 12/31/18 06:15 66 20 103/61 12/31/18 06:00 66 23 95/53 L 12/31/18 05:45 65 24 103/58 L 12/31/18 05:30 66 22 109/60 12/31/18 05:15 66 24 104/59 L 12/31/18 05:00 69 14 111/63 12/31/18 04:45 72 17 93/55 L 12/31/18 04:30 66 18 91/51 L 12/31/18 04:15 67 21 98/55 L 12/31/18 04:00 36.5 C 74 31 H 104/56 L Pulse Ox 12/31/18 15:07 93 12/31/18 12:49 12/31/18 11:24 94 12/31/18 11:14 92 12/31/18 10:37 92 12/31/18 10:15 92 12/31/18 10:00 93 12/31/18 09:45 91 12/31/18 09:30 93 12/31/18 09:15 92 12/31/18 09:00 92 12/31/18 08:45 93 12/31/18 08:30 93 12/31/18 08:15 94 12/31/18 08:00 100 12/31/18 07:54 92 12/31/18 07:45 91 12/31/18 07:00 98 12/31/18 06:30 99 12/31/18 06:15 96 12/31/18 06:00 96 12/31/18 05:45 98 12/31/18 05:30 99 12/31/18 05:15 98 12/31/18 05:00 98 12/31/18 04:45 96 12/31/18 04:30 96 12/31/18 04:15 99 12/31/18 04:00 100
[2018-12-31] MEDS: LACTATED RINGER'S 1,000 ML IV SCH (16:41)
[2018-12-31] MEDS: OXYCODONE HCL IR 5 MG TAB (IMMEDIATE RELEASE) PO PRN (20:09)
[2018-12-31] MEDS: PIPERACILLIN/TAZOBACTAM 2.25 GM in DEXTROSE 5% 100 ML IV SCH (21:11)
[2018-12-31] MEDS ORDERED: METOPROLOL TARTRATE 1 MG/ML VIAL IV PRN (23:11)
[2019-01-01] MEDS: LACTATED RINGER'S 1,000 ML IV SCH (01:08)
[2019-01-01] MEDS: ROPINIROLE HCL 1 MG TABLET PO SCH ×2 (01:08→21:24)
[2019-01-01] MEDS: OXYCODONE HCL IR 5 MG TAB (IMMEDIATE RELEASE) PO PRN ×3 (02:29→16:17)
[2019-01-01] MEDS: LEVALBUTEROL HCL 0.63 MG/3 ML NEB INH SCH ×6 (02:55→23:10)
[2019-01-01] MEDS: IPRATROPIUM BROMIDE NEB SOLN 0.02% 2.5 ML VIAL INH SCH ×6 (02:55→23:10)
[2019-01-01] MEDS: PIPERACILLIN/TAZOBACTAM 2.25 GM in DEXTROSE 5% 100 ML IV SCH ×4 (03:15→21:25)
[2019-01-01] MEDS: HEPARIN SOD 5,000 UNIT/0.5 ML VIAL SQ SCH ×3 (05:38→21:25)
[2019-01-01] MEDS: LEVOTHYROXINE SODIUM 88 MCG TABLET PO SCH (05:38)
[2019-01-01 06:59] LABS: Basophils # (auto) 0.01 K/uL (0-0.2); Basophils % (auto) 0.1 %; Eosinophils # (auto) 0.22 K/uL (0-0.5); Eosinophils % (auto) 3.1 %; Hematocrit (blood only) 36.2 % (37-47); Hemoglobin 11.9 g/dL (12.0-16.0); Immature Granulocytes # (auto) 0.03 K/uL (0.00-0.02); Immature Granulocytes % (auto) 0.4 %; Lymphocytes # (auto) 0.64 K/uL (1.2-3.4); Lymphocytes % (auto) 8.9 %; Mean Corpuscular Hemoglobin 32.1 pg (25-34); Mean Corpuscular Hgb Conc 32.9 g/dL (32-36); Mean Corpuscular Volume 97.6 fL (80-100); Mean Platelet Volume 10.5 fL (7.4-10.4); Monocytes # (auto) 0.27 K/uL (0.11-0.59); Monocytes % (auto) 3.8 %; Neutrophils # (auto) 5.99 K/uL (1.4-6.5); Neutrophils % (auto) 83.7 %; Platelet Count 174 K/uL (130-400); RDW Standard Deviation 50.7 fL (36.4-46.3); Red Blood Count 3.71 M/uL (4.2-5.4); White Blood Count 7.16 K/uL (4.8-10.8)
[2019-01-01 07:08] LABS: INR 1.1 (0.9-1.1); Partial Thromboplastin Ratio 1.2; Partial Thromboplastin Time 31.9 Seconds (21.0-31.0); Prothrombin Time 10.9 Seconds (9.0-12.0)
[2019-01-01 07:28] LABS: Est GFR (African American) 40.3; Est GFR (Non-African American) 34.8; Potassium 3.2 mmol/L (3.5-5.1)
[2019-01-01 07:29] LABS: Albumin Level 2.6 gm/dl (3.4-5.0); BUN Creatinine Ratio 20.7 (10-20); Bilirubin Direct 2.8 mg/dl (0-0.2); Calcium 8.8 mg/dl (8.5-10.1); Magnesium 2.5 mg/dl (1.8-2.4)
[2019-01-01 07:41] LABS: Bilirubin,Total 3.5 mg/dl (0.2-1); Phosphorus 2.4 mg/dl (2.5-4.9); Total Protein 6.4 gm/dl (6.4-8.2)
[2019-01-01] MEDS: FLUTICASONE/UMECLIDIN/VILANTER INH SCH (08:35)
[2019-01-01] MEDS: FAMOTIDINE 20 MG TAB PO SCH (08:35)
[2019-01-01] MEDS: ASPIRIN 81 MG ECTAB PO SCH (08:35)
[2019-01-01] MEDS: POTASSIUM CHLORIDE 20 MEQ TABCR PO SCH (10:22)
--- NOTE | 2019-01-01 11:48 | Surgery Progress Note ---
Date of Service January 01, 2019 Assessment & Plan (1) Choledocholithiasis with obstruction: Patient feels better than yesterday Patient afebrile and WBC continues to downtrend, 7.1 today. LFT's downtrending, Tbili: 3.5 from 4.9 Patient cube machine tender in RUQ, but pain is improving Continue course of antibiotics No plans for surgical intervention at this time as above. clinically better. labs better. will sign off. call if needed. Subjective Patient states she feels better than yesterday. Abdominal pain is still present, but improved. She is tolerating a liquid diet without n/v. She is passing flatus, but no BM yet. Physical Exam Physical Exam: awake/alert Gastrointestinal (Abdomen): Inspection/Auscultation: abdomen not distended Percussion/Palpation: + abdomen tender (improved but still present, mostly RUQ) and abdomen soft Results & Data Vital Signs (Past 12 Hours) Vital Signs Temp Pulse Pulse Resp BP BP Pulse Ox 01/01/19 11:28 36.4 C L 70 18 138/72 93 01/01/19 10:47 104 H 18 86 L 01/01/19 08:10 36.4 C L 86 20 129/76 01/01/19 08:00 66 01/01/19 07:00 81 22 98 01/01/19 03:03 36.9 C 71 18 129/75 99 01/01/19 02:55 70 16 96 01/01/19 02:46 87 01/01/19 00:00 93 PG Care Time/CCT Total # of Minutes Spent Total Time Spent with Patient: Total time spent is greater than 50% in coordination of care (as documented) at patient's floor/unit and/or counseling patient: (1) Choledocholithiasis with obstruction Cholangitis acuity: acute Cholangitis presence: with cholangitis Qualified Code(s): K80.33 - Calculus of bile duct with acute cholangitis with obstruction
[2019-01-01] MEDS ORDERED: POLYETHYLENE (MIRALAX) 17 GM PACK PO ONE (11:56)
--- NOTE | 2019-01-01 15:37 | Gastroenterology Progress Note ---
Date of Service January 01, 2019 Assessment & Plan (1) Elevated LFTs: RUQ guarding, stones in CBD s/p partial removal with ERCP and stent, elev LFTS, ? portal venous gas, elevated WBC, elev lactic acid, elevated lipase Abd pain improved. Lipase elevated but clinically better. Advance diet as tolerated. Tertiary center as outpt for stone and stent removal. Subjective cc abd pain HPI Pt states abd pain improved. Tolerating clears Review of Systems Respiratory: no dyspnea Cardiovascular: no chest pain Physical Exam Constitutional: WD/WN, vitals as above Respiratory: normal respiratory effort, lungs clear to auscultation Gastrointestinal (Abdomen): pos bs, soft, no guarding no rebound Psychiatric: A+Ox3, euthymic affect Results & Data Vital Signs (Past 12 Hours) Vital Signs Temp Pulse Pulse Resp BP BP Pulse Ox 01/01/19 11:28 36.4 C L 70 18 138/72 93 01/01/19 10:47 104 H 18 86 L 01/01/19 08:10 36.4 C L 86 20 129/76 01/01/19 08:00 66 01/01/19 07:00 81 22 98
--- NOTE | 2019-01-01 21:00 | Hospitalist Progress Note ---
Date of Service January 01, 2019 Assessment & Plan (1) Sepsis: source -> acute cholangitis as below Mildly low blood pressure and tachycardia with negative fluid balance. Suspect she remains intravascularly deplete and patient given 500ml bolus lactated Ringer's. (2) Bacteremia: Gram-negative bacilli growing in blood culture 1/2. Continue Zosyn awaiting final sensitivities (3) Choledocholithiasis with obstruction: Appreciate GI management with ERCP. Partial removal accomplished and stent inserted. Improving WBC and LFTs. Lipase WNL. Eventual need for tertiary care to repeat ERCP and remove large stone but for now obstruction appears to have resolved. (4) Acute cholangitis: RUQ pain, increasing LFTs, pus on ERCP. Continue IV Zosyn pending further clinical improvement and blood culture sensitivities (5) Acute respiratory failure with hypoxia and hypercapnia: Now resolved and stable on room air, without shortness of breath. Suspect combination of sepsis, non-cardiogenic pulmonary edema and underlying COPD (no current exacerbation). Stop IV fluids given crackles at bases, suspect she has a small amount of pulmonary edema. Will avoid diuretics at this time. 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 daily (10) GERD (gastroesophageal reflux disease): Famotidine 20 mg p.o. daily (11) COPD (chronic obstructive pulmonary disease): Restarted on Trelegy FEV1/FVC 0.57, DLCO reduced. Moderate obstructive defect with positive bronchodilator response. (12) Obstructive sleep apnea: Patient to use her home CPAP overnight (setting 7cmH2O) (13) DVT prophylaxis: Heparin 5000 units Q8H Subjective Denies any abdominal pain this morning. Passing flatus. No nausea or vomiting. She feels much improved although is still very fatigued. Review of Systems Review of Systems: All systems reviewed & are unremarkable except as noted in HPI & below Physical Exam Constitutional: well developed and + obese; no acute distress and no altered mental status Eyes: normal pupil size ENMT: external ear and nose normal, oropharynx normal Neck: trachea midline, + short neck and + thick neck Respiratory: normal respiratory effort; no respiratory distress, no labored breathing and does not use accessory muscles Auscultation: + diminished lung sounds (Bibasal) and + crackles (Bibasal); no rales, no rhonchi and no wheezes Cardiovascular: Rate/Rhythm: regular rate and regular rhythm Heart Sounds: normal S1 and normal S2; no murmur Vessels: + JVD Extremities: no pedal edema Gastrointestinal (Abdomen): Inspection/Auscultation: abdomen normal to inspection and + hypoactive bowel sounds; abdomen not distended Percussion/Palpation: + abdomen tender (moderate in all 4 quadrants), + guarding (RUQ) and abdomen soft; abdomen not rigid Musculoskeletal: no cyanosis or clubbing, extremities motor strength 5/5 Head/Neck/Chest: normocephalic and head atraumatic Skin: no rashes, warm and dry Neurologic: moves all extremities and awake; no focal motor deficits and not confused Psychiatric: A+Ox3, euthymic affect Orientation: alert and oriented x 3 Affect: + flat affect Results & Data Vital Signs (Past 12 Hours) Vital Signs Temp Pulse Resp BP Pulse Ox 01/01/19 19:06 76 16 91 01/01/19 15:39 97.7 F 75 28 H 124/77 93 01/01/19 15:38 88 18 93 01/01/19 11:28 97.5 F L 70 18 138/72 93 01/01/19 10:47 104 H 18 86 L PG Care Time/CCT Total # of Minutes Spent Total Time Spent with Patient: Total time spent is greater than 50% in coordination of care (as documented) at patient's floor/unit and/or counseling patient: (1) Atrial fibrillation Atrial fibrillation type: paroxysmal Qualified Code(s): I48.0 - Paroxysmal atrial fibrillation (2) Sepsis Acute respiratory failure type: with hypoxia Sepsis acute organ dysfunction status: with acute organ dysfunction Sepsis type: sepsis due to unspecified organism Severe sepsis acute organ dysfunction type: acute respiratory failure Severe sepsis shock status: without septic shock Qualified Code(s): A41.9 - Sepsis, unspecified organism; R65.20 - Severe sepsis without septic shock; J96.01 - Acute respiratory failure with hypoxia (3) COPD (chronic obstructive pulmonary disease) COPD type: unspecified COPD Qualified Code(s): J44.9 - Chronic obstructive pulmonary disease, unspecified (4) Hypertension Hypertension type: essential hypertension Qualified Code(s): I10 - Essential (primary) hypertension (5) Choledocholithiasis with obstruction Cholangitis acuity: acute Cholangitis presence: with cholangitis Qualified Code(s): K80.33 - Calculus of bile duct with acute cholangitis with obstruction
[2019-01-02] MEDS: IPRATROPIUM BROMIDE NEB SOLN 0.02% 2.5 ML VIAL INH SCH ×2 (03:32→07:04)
[2019-01-02] MEDS: LEVALBUTEROL HCL 0.63 MG/3 ML NEB INH SCH ×2 (03:32→07:04)
[2019-01-02] MEDS: OXYCODONE HCL IR 5 MG TAB (IMMEDIATE RELEASE) PO PRN (03:50)
[2019-01-02] MEDS: PIPERACILLIN/TAZOBACTAM 2.25 GM in DEXTROSE 5% 100 ML IV SCH (03:51)
[2019-01-02] MEDS: HEPARIN SOD 5,000 UNIT/0.5 ML VIAL SQ SCH (06:22)
[2019-01-02 06:59] LABS: Albumin Globulin Ratio 0.6 (0.9-2); Albumin Level 2.5 gm/dl (3.4-5.0); BUN Creatinine Ratio 18.5 (10-20); Bilirubin,Total 2.3 mg/dl (0.2-1); Calcium 9.2 mg/dl (8.5-10.1); Creatinine Clr Calc Pharmacy 53.6 ml/min; Est GFR (African American) 63.1; Est GFR (Non-African American) 54.5; Globulin 3.9 gm/dl (2.5-4.0); Potassium 3.5 mmol/L (3.5-5.1); Total Protein 6.4 gm/dl (6.4-8.2)
[2019-01-02] MEDS: LEVOTHYROXINE SODIUM 88 MCG TABLET PO SCH (07:06)
[2019-01-02] MEDS: FLUTICASONE/UMECLIDIN/VILANTER INH SCH (07:43)
[2019-01-02] MEDS: FAMOTIDINE 20 MG TAB PO SCH (07:43)
[2019-01-02] MEDS: POTASSIUM CHLORIDE 20 MEQ TABCR PO SCH (07:43)
[2019-01-02] MEDS: ASPIRIN 81 MG ECTAB PO SCH (07:43)
[2019-01-02] MEDS ORDERED: FUROSEMIDE 20 MG TAB PO SCH (09:00)
[2019-01-02] MEDS ORDERED: METOPROLOL SUCC 50MG EXT REL TAB PO SCH (09:00)
[2019-01-02] MEDS ORDERED: PIPERACILLIN/TAZOBACTAM 3.375 GM in DEXTROSE 5% 100 ML IV SCH (10:00)
[2019-01-02] MEDS ORDERED: POLYETHYLENE (MIRALAX) 17 GM PACK PO ONE (12:53)
[2019-01-02] MEDS ORDERED: FUROSEMIDE 20 MG in SYRINGE 0 ML IV ONE (13:30)
--- NOTE | 2019-01-02 15:33 | XRay Report ---
XR chest 1V not portable CLINICAL HISTORY: bilateral crackles at bases ?pulmonary edema COMPARISON STUDY: Chest radiograph December 30, 2018. FINDINGS: Dual lead left subclavian pacemaker is noted. There is moderate cardiomegaly. Trace left an d small right pleural effusions are noted. Cardiomegaly is unchanged. Pulmonary edema has improved. IMPRESSION: 1. Interval improvement in pulmonary edema. 2. Small right and trace left pleural effusions. Electronically signed by: Piotr Ly M.D. 01/02/2019 3:31 PM
[2019-01-02] MEDS ORDERED: CIPROFLOXACIN 500 MG TAB PO STA (16:09)
[2019-01-02] MEDS ORDERED: metroNIDAZOLE 500 MG TAB PO STA (16:11)
--- NOTE | 2019-01-02 16:27 | Gastroenterology Progress Note ---
Date of Service January 02, 2019 Assessment & Plan (1) Elevated LFTs: RUQ guarding, stones in CBD s/p partial removal with ERCP and stent, elev LFTS, ? portal venous gas, elevated WBC, elev lactic acid, elevated lipase Abd pain improved. LFTs better, lipase normal. Advance diet as tolerated. Tertiary center as outpt for stone and stent removal. Discusssed with DR López--pt going to [facility] today and he is arranging [place] appt. Subjective cc abd pain HPI Abd pain improved. Tolerating liquid diet. Review of Systems Respiratory: no dyspnea Cardiovascular: no chest pain Physical Exam Constitutional: WD/WN, vitals as above Respiratory: normal respiratory effort, lungs clear to auscultation Gastrointestinal (Abdomen): normal bowel sounds, soft, nontender, no hepatosplenomegaly Neurologic: patellar DTR's 2+ bilat, sensation intact Psychiatric: A+Ox3, euthymic affect Results & Data Vital Signs (Past 12 Hours) Vital Signs Temp Pulse Pulse Resp BP BP Pulse Ox 01/02/19 16:08 36.4 C L 64 16 141/78 H 95 01/02/19 07:52 36.8 C 71 18 155/84 H 99 01/02/19 07:04 75 16 96
[2019-01-02] MEDS ORDERED: ENOXAPARIN INJ 40 MG/0.4 ML SYR SQ SCH (21:00)
== END 2019-01-02 19:06 | DRG 871 ==
LOC: ED 14:12 → 1E 20:17 → SUATTDRO 20:17 → 1E 20:47 → 2S 12-31 07:07 → 2N 01-01 09:17

== ENCOUNTER 2019-04-07 08:56 | Inpatient (IN) ==
[2019-04-07] MEDS ORDERED: methylPREDNISolone 125 MG/2 ML VIAL IV STA (09:29)
[2019-04-07] MEDS ORDERED: ALBUT/IPRATROP 3MG/0.5MG NEB 3 ML VIAL NEB STA (09:29)
[2019-04-07] MEDS ORDERED: SODIUM CHLORIDE 0.9% 500 ML IV ONE (09:30)
[2019-04-07 09:42] LABS: Basophils # (auto) 0.03 K/uL (0-0.2); Basophils % (auto) 0.1 %; Eosinophils # (auto) 0.04 K/uL (0-0.5); Eosinophils % (auto) 0.2 %; Hematocrit (blood only) 42.7 % (37-47); Hemoglobin 14.2 g/dL (12.0-16.0); Immature Granulocytes # (auto) 0.09 K/uL (0.00-0.02); Immature Granulocytes % (auto) 0.4 %; Lymphocytes # (auto) 0.73 K/uL (1.2-3.4); Lymphocytes % (auto) 3.6 %; Mean Corpuscular Hemoglobin 32.2 pg (25-34); Mean Corpuscular Hgb Conc 33.3 g/dL (32-36); Mean Corpuscular Volume 96.8 fL (80-100); Mean Platelet Volume 9.8 fL (7.4-10.4); Monocytes % (auto) 3.5 %; Neutrophils # (auto) 18.59 K/uL (1.4-6.5); Neutrophils % (auto) 92.2 %; Platelet Count 294 K/uL (130-400); RDW Standard Deviation 50.4 fL (36.4-46.3); Red Blood Count 4.41 M/uL (4.2-5.4); White Blood Count 20.18 K/uL (4.8-10.8)
--- NOTE | 2019-04-07 09:49 | XRay Report ---
XR chest 1V portable CLINICAL HISTORY: SEPSIS dyspnea COMPARISON STUDY: 01/02/2019 FINDINGS: Moderate stable cardiomegaly. Mild stable emphysematous change. Permanent bipolar cardiac p acemaker. Chronic pleural thickening right base laterally. Potential superimposed interstitial infiltrate left base. Pulmonary apices are clear. IMPRESSION: Chronic and postoperative change. Mild superimposed infiltrate left base. ACT 112: Negative or not required by law. The above report was generated using voice recognition software. It may contain grammatical, syntax or spelling errors. Electronically signed by: Gustavo Lamas M.D. 04/07/2019 9:48 AM
[2019-04-07 09:57] LABS: Partial Thromboplastin Ratio 0.8; Partial Thromboplastin Time 21.2 Seconds (21.0-31.0); Prothrombin Time 10.5 Seconds (9.0-12.0)
[2019-04-07 10:02] LABS: Albumin Globulin Ratio 0.7 (0.9-2); Albumin Level 3.4 gm/dl (3.4-5.0); BUN Creatinine Ratio 12.6 (10-20); Bilirubin,Total 2.3 mg/dl (0.2-1); Calcium 9.5 mg/dl (8.5-10.1); Creatinine Clr Calc Pharmacy 40.6 ml/min; Est GFR (African American) 45.3; Est GFR (Non-African American) 39.1; Globulin 4.8 gm/dl (2.5-4.0); Phosphorus 2.8 mg/dl (2.5-4.9); Total Protein 8.2 gm/dl (6.4-8.2); Troponin I 0.021 ng/ml (0-0.045)
[2019-04-07] MEDS ORDERED: ALBUT/IPRATROP 3MG/0.5MG NEB 3 ML VIAL NEB ONE (10:04)
[2019-04-07 10:32] LABS: Influenza A virus by PCR Neg for Influ A (Neg); Influenza B virus by PCR Neg for Influ B (Neg)
[2019-04-07 10:38] LABS: Base Excess VBG -0.8 mEq/L; Oxygen Saturation VBG 95.8 %; pH VBG 7.45 (7.36-7.41)
[2019-04-07] MEDS ORDERED: VANCOMYCIN HCL 2,000 MG in SODIUM CHLORIDE 0.9% 500 ML IV ONE (11:27)
[2019-04-07] MEDS ORDERED: VANCOMYCIN CONSULT ACTIVE PRN (11:27)
[2019-04-07] MEDS ORDERED: PIPERACILLIN/TAZOBACTAM 4.5 GM/120 ML BAG IV ONE (11:27)
[2019-04-07] MEDS ORDERED: DOXYCYCLINE HYCLATE 100 MG in DEXTROSE 5% 100 ML IV STA (11:27)
[2019-04-07] MEDS ORDERED: PIPERACILL/TAZOBAC CONSULT ACTIVE PRN ×2 (11:27→14:26)
[2019-04-07] MEDS ORDERED: OPTIRAY 320 125ml IV PRN (12:10)
--- NOTE | 2019-04-07 12:51 | CT Scan Report ---
CT ANGIOGRAM OF THE CHEST; CT SCAN OF THE ABDOMEN AND PELVIS WITH IV CONTRAST CLINICAL HISTORY: Dyspnea. Sepsis. COMPARISON STUDY: Chest CT scans dated 10/07/2017 and 11/13/2016. Abdominal CT dated 12/31/2018. TECHNIQUE: Following the IV administration of 119 of Optiray 320, CT angiogram of the chest is perfor med from the upper abdomen to the thoracic inlet utilizing the pulmonary embolus protocol. Images are reviewed in the axial, sagittal, coronal planes. 3-D MIPS images are created and assessed. Subsequen tly, CT scan of the abdomen and pelvis was performed from the lung bases to the proximal femora. Imag es are reviewed in the axial, sagittal, and coronal planes. IV contrast was administered without comp lication. A dose lowering technique was utilized adhering to the principles of ALARA. CT DOSE: 1593.08 mGy.cm FINDINGS: CHEST: Thyroid: Atrophic. Thoracic aorta: There is atherosclerotic calcification of the thoracic aorta, which is normal in johan layne and demonstrates standard 3-vessel arch anatomy. No dissection is seen. Pulmonary vasculature: The main pulmonary arteries are dilated suggesting pulmonary artery hypertensi on. There are no filling defects identified in the main, lobar, or segmental pulmonary arteries to in dicate pulmonary embolus. Heart: A cardiac pacemaker is present within the left chest wall. The heart is enlarged and without p ericardial effusion. Lungs and pleural spaces: Emphysematous change is noted. There are trace right larger left pleural ef fusions with associated atelectasis. Loculated fluid is noted along the right major fissure. Diffuse interlobular septal thickening is identified and there is diffuse peribronchial thickening. The trach ea and central airways are clear. No airspace consolidation is seen typical for pneumonia. A 4 mm elsa undglass nodule at the left apex on image #238 is unchanged from prior studies. Mediastinum: There are mildly enlarged mediastinal lymph nodes. A high right paratracheal node seen o n image #220 measures 12 mm in short axis. A subcarinal node measures 1.5 cm in short axis. Nadine: Clear. Axillae: There is no axillary lymphadenopathy. Bony thorax: The skeletal structures are osteopenic. No lytic or blastic lesions are identified. ABDOMEN AND PELVIS: Liver: The contrast-enhanced liver is normal in size and heterogeneous in attenuation. There is nodul arity of the surface contour and hypertrophy of the left lobe. There is heterogeneous perfusion ident ified throughout the subcapsular right lobe. Inflammatory change in periportal edema suggested around the portal triads in the right lobe. There is mild central intrahepatic or ductal dilatation. The he patic veins and portal veins are patent. Pneumobilia is noted in the left lobe. Gallbladder: The gallbladder is surgically absent. The common bile duct is distended, measuring up to 1.7 cm diameter. There is wall thickening identified throughout the common bile duct with surroundin g inflammation. Spleen: Normal in size and attenuation. Pancreas: Infiltrate is present around the pancreatic head. See below under bowel. The pancreas is mo derately atrophic. The pancreatic duct is normal in caliber. Adrenal glands: A 1.5 cm left adrenal adenoma is unchanged from prior studies. The right adrenal glan d is normal in appearance. Kidneys: The contrast enhanced kidneys demonstrate cortical atrophy and are without hydronephrosis. T he kidneys enhance symmetrically. Abdominal vasculature: The abdominal aorta is normal in course and caliber noting moderate to advance d atherosclerotic calcification. Stomach and bowel: There is a small hiatal hernia. The duodenum is normal in configuration. There is an inflammatory process identified around the proximal duodenum and the pancreatic head, with associa gamaliel duodenal mucosal thickening, hyperemia, and edema of. A large duodenal diverticulum is noted in t his region. No bowel obstruction is seen. There is mild to moderate colonic diverticulosis without CT evidence of acute diverticulitis. The appendix is well-visualized and normal. Peritoneum: There is trace pericardial ascites. No intraperitoneal free air is seen. Lymphadenopathy: Mildly enlarged upper abdominal lymph nodes are identified. A portacaval node on brad ge #169 measures 14 mm short axis. Peripancreatic nodes measure up to 10 mm in short axis. Pelvic viscera: The bladder is normal as visualized. The endometrium is thickened and heterogeneous, measuring up to 2.3 cm in diameter. No adnexal lesion is seen. Skeletal structures: The skeletal structures are osteopenic. There is [id number] lumbosacral sp ondylosis. Sclerotic change is noted in the sacroiliac joints, right greater than left. No lytic or b lastic lesions are seen. IMPRESSION: 1. There is no evidence of pulmonary embolus in the main, lobar, or segmental pulmonary arteries. 2. Cardiomegaly and cardiac pacemaker with evidence of congestive failure. 3. Emphysema. 4. Trace pleural effusions. 5. There is no airspace consolidation typical for pneumonia. 6. There is a large inflammatory process centered around the proximal duodenum as detailed above whic h also involves the adjacent pancreatic head. There is a large duodenal diverticulum in this region, and differential considerations include a duodenal diverticulitis, duodenitis, duodenal ulcer disease , or possibly acute pancreatitis. Underlying mass lesion is considered much less likely but would be impossible to exclude. Clinical laboratory correlation will be essential. 7. There is evidence of ascending cholangitis with heterogeneous perfusion throughout the right lobe of the liver. 8. No organized fluid collection is seen to suggest abscess. 9. Trace perinephric ascites. No intraperitoneal free air is seen. 10. Mildly enlarged upper abdominal lymph nodes are likely on a reactive basis. 11. The endometrium is markedly thickened and heterogeneous. This is highly concerning for endometria l neoplasm. Nonemergent gynecology follow-up and pelvic ultrasound is recommended for further assessm ent. 12. Colonic diverticulosis without CT evidence of acute diverticulitis. 13. The appearance of liver suggests early changes of cirrhosis. 14. Additional findings as above. ACT 112: Negative or not required by law. Electronically signed by: Troy Platt M.D. 04/07/2019 12:50 PM
--- NOTE | 2019-04-07 12:56 | History & Physical Report ---
Date of Service April 07, 2019 Assessment & Plan (1) Shortness of breath: 78yo C female with COPD, [place] presenting with acute onset SOB. Patient placed on rescue BiPAP en route to hospital. Presently she is doing well, breathing comfortably with adequate oxygenation on minimal settings. Bilateral crackles to mid lung hsieh, L >R. Labs with leukocytosis as well as elevated BNP. CXR with possible LLL infiltrate. Possible PNA with mild exacerbation of CHF as well -Admit to PCU -Continue BiPAP, wean as tolerated -Follow cultures, blood sent from ER -Continue home COPD medications, patient with adequate air flow and no wheeze on exam, doubt COPD exacerbation as underlying etiology of SOB -Patient does have mild CHF/volume overload. Will focus on treating infection at this time, mild sepsis with gentle IVF then diurese as needed Present on Admission?: Yes (2) Ascending cholangitis: CT abdomen with ascending cholangitis as well as peripancreatic inflammation. CBD distended to 1.7cm, wall thickening throughout the CBD with surrounding inflammation. Patient is unable to have an MRCP due to her pacemaker -Check lipase stat -Check RUQ US stat -GI consultation appreciated - GI is aware of the patient -Continue gentle IVF, NSS at 75mL/hr x 500mL -Zosyn 3.375gm IV q 8 Present on Admission?: Yes (3) Pancreatitis: Suspect acute pancreatitis. Patient with elevated Lipase = [id number], +abdominal pain and CT findings which could represent pancreatitis -NPO -Increase IVF to LR 125mL/hr -Zofran PRN -Morphine PRN -GI consultation as above - appreciated -No MRCP d/t pacemaker. Patient will proceed with ERCP Present on Admission?: Yes (4) Obstructive sleep apnea: Chronic -Continue CPAP qHS, 7cmH20 Present on Admission?: Yes (5) COPD (chronic obstructive pulmonary disease): Chronic -Continue Trelegy, Xopenex -Continue to monitor -Goal saturation 88 - 92% with supplemental O2 Present on Admission?: Yes (6) GERD (gastroesophageal reflux disease): Chronic -Continue Pepcid Present on Admission?: Yes (7) Hypothyroidism associated with surgical procedure: Chronic. TSH=1.32 in December -Continue Synthroid Present on Admission?: Yes (8) Atrial fibrillation: Rate controlled on Metoprolol. 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 Stable -Continue Ropinirole F/E/N - NSS at 75mL/hr x 500mL, monitor strict I/Os and daily weights, monitor electroltyes and replete as needed, continue PO K, NPO for now Ppx - SCDs Code - Full per discussion with patient Dispo - Admit to PCU History of Present Illness Chief Complaint: SOB Primary Care Provider: Lg Rodriguez Marianne Zhang is an 78yo C female with history of AF/COPD/[place] presenting with SOB. She woke this morning at 04:00 with acute SOB as well as chills and dizziness. She was started on BiPAP en route to [facility] for respiratory distress. On arrival to the ER she was afebrile, hypertensive at 172/92, tachypneic at 33bpm saturating 96% on CPAP. She was transitioned to BiPAP. Initial workup with neutrophil predominant leukocytosis, elevated lactate at 2.8, abnormal LFTs in mixed obstructive/hepatocellular pattern. CT of the abdomen concerning for ascending cholangitis, possible acute pancreatitis. She was admitted from - 01/02/19 with sepsis secondary to choledocholithiasis and ascending cholangitis. She was treated in the MICU with IV Zosyn and supportive care. She had an ERCP performed on 12/30/[address] Rodrigues which revealed a filling defect consistent with a stone and sludge, dilation of the entire main bile duct, choledocholithiasis and pus. She had stone removal by balloon extraction and stent insertion. One large 14mm stone remained in place and she was referred to outside facility for possible lithot ripsy removal. Her blood cultures grew pansensitive klebsiella and anaerobic GP bacilli. She completed a 14 day course of antibiotics with Cipro and Metronidazole. She is complaining of ongoing RUQ abdominal pain since December. No additional complaints at this time. ER Course: Solumedrol 125mg, Albuterol, Zosyn, Vancomycin, Doxycycline Allergies Allergy/AdvReac Type Severity Reaction Status Date / Time No Known Drug Allergies Allergy Verified 04/07/19 11:41 Home Medications Home Medications Medication Instructions Recorded Confirmed Type acetaminophen 500 mg tablet 500 mg PO Q4H PRN 12/03/18 04/07/19 History aspirin 81 mg tablet,delayed 81 mg PO QAM 12/03/18 04/07/19 History release cholecalciferol (vitamin D3) 125 5,000 units PO QAM 12/03/18 04/07/19 History mcg (5,000 unit) tablet furosemide 20 mg tablet 20 mg PO MOTUWETHFRSA@0800 12/03/18 04/07/19 History levalbuterol tartrate 45 2 puffs INH Q4H PRN gm 12/03/18 04/07/19 History mcg/actuation aerosol inhaler metoprolol succinate 50 mg 50 mg PO QAM 12/03/18 04/07/19 History tablet,extended release 24 hr potassium chloride 20 mEq 20 meq PO QAM 12/03/18 04/07/19 History tablet,extended release(part/cryst) ropinirole 1 mg tablet 1 mg PO QPM tab 12/03/18 04/07/19 History famotidine 20 mg tablet 20 mg PO BID 12/16/18 04/07/19 History gabapentin 100 mg capsule 100 mg PO HS 12/16/18 04/07/19 History polyethylene glycol 3350 [Miralax] 17 gm PO DAILY PRN #30 ea 01/02/19 04/07/19 Rx Trelegy Ellipta 1 puffs INHALATION QAM 04/07/19 04/07/19 History levothyroxine 125 mcg PO QAM 04/07/19 04/07/19 History Past Med/Surg History Medical History (Updated 04/07/19 @ 16:08 by Amy Luther DO) Atrial fibrillation (Chronic) Common bile duct (CBD) obstruction COPD (chronic obstructive pulmonary disease) GERD (gastroesophageal reflux disease) Hypertension (Chronic) Hypothyroidism associated with surgical procedure Obstructive sleep apnea Pacemaker (Chronic) Restless leg syndrome (Chronic) Surgical History (Updated 04/07/19 @ 16:00 by Amy Luther DO) History of ERCP S/P cholecystectomy (Resolved) S/P thyroidectomy (Resolved) Family History (Updated 04/07/19 @ 16:00 by Amy Luther DO) Other Cancer Social History Preferred Language: Azeri Communication Ability: Effective 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 Beliefs That Will Affect Care: None marital status: Current Living Situation: Alone current occupational status: retired Other Information That Helps Us Care for You: No Feels Safe at Home: Yes Safety Concerns: Feels Safe At This Time Smoking Status: Former smoker Tobacco Type: cigarettes ; Cigarettes Per Day: 20 ; Do You Dip or Chew Tobacco: No ; Second Hand Exposure: No ; Tobacco Cessation Education Requested by Patient: No Hx Alcohol Use: No Hx Substance Use: No Review of Systems Review of Systems: All systems reviewed & are unremarkable except as noted in HPI & below +Abdominal pain +SOB +LE edema +mild orthopnea Physical Exam Physical Exam: General: patient resting comfortably, NAD, non-toxic in appearance, AA&O x 4, BiPAP in place Skin: warm, dry, intact, no rashes or lesions HEENT: NC/AT, PERRL, EOMI, anicteric sclera, conjunctiva without injection, external ear normal to inspection and nontender, nares patent, moist mucus membranes, dentition intact, no oropharyngeal lesions, neck supple, trachea midline, no LAD, no thyromegaly, no JVD Heart: +S1/S2, irregularly irregular, no m/r/g Lungs: equal air entry bilaterally, +bilateral crackles to mid lung field, L>R Abd: +BS, soft, ND, +RUQ tenderness with +Mittal's sign, +Epigastric pain as well, no masses/organomegaly/ascites Ext: warm, 2+ pulses in UE/LE bilaterally, LLE stasis ulcer, warm/tender/erythematous Neuro: nonfocal, patient AA&O x 4, speech intact, no facial droop, moving all extremities on command with equal strength 5/5 Results & Data Vital Signs (Past 12 Hours) Vital Signs Temp Pulse Pulse Resp BP Pulse Ox 04/07/19 12:17 87 36 H 96 04/07/19 11:30 93 H 36 H 114/50 L 96 04/07/19 11:00 94 H 26 H 90/63 L 98 04/07/19 10:30 83 20 108/66 99 04/07/19 10:00 80 23 147/85 H 96 04/07/19 09:53 82 99 04/07/19 09:44 80 30 H 96 04/07/19 09:31 80 28 H 96 04/07/19 09:30 79 26 H 143/67 H 95 04/07/19 09:07 36.7 C 85 40 H 172/92 H 96 04/07/19 09:06 95 H 35 H 98 04/07/19 09:02 91 H 33 H 172/92 H 97 04/07/19 09:00 86 36 H 96 Laboratory Results Lab Results 04/07/19 04/07/19 04/07/19 Range/Units 09:10 09:10 09:10 WBC 20.18 H (4.8-10.8) K/uL RBC 4.41 (4.2-5.4) M/uL Hgb 14.2 (12.0-16.0) g/dL Hct 42.7 (37-47) % MCV 96.8 (80-100) fL MCH 32.2 (25-34) pg MCHC 33.3 (32-36) g/dL RDW Std Deviation 50.4 H (36.4-46.3) fL RDW Coeff of Agusto 14.0 (11.5-14.5) % Plt Count 294 (130-400) K/uL MPV 9.8 (7.4-10.4) fL Immature Gran % (Auto) 0.4 % Neut % (Auto) 92.2 % Lymph % (Auto) 3.6 % [place] % (Auto) 3.5 % Eos % (Auto) 0.2 % Baso % (Auto) 0.1 % Immature Gran # (Auto) 0.09 H (0.00-0.02) K/uL Neut # (Auto) 18.59 H (1.4-6.5) K/uL Lymph # (Auto) 0.73 L (1.2-3.4) K/uL [place] # (Auto) 0.70 H (0.11-0.59) K/uL Eos # (Auto) 0.04 (0-0.5) K/uL Baso # (Auto) 0.03 (0-0.2) K/uL PT 10.5 (9.0-12.0) Seconds INR 1.0 (0.9-1.1) APTT 21.2 (21.0-31.0) Seconds PTT Ratio 0.8 VBG pH (7.36-7.41) VBG pCO2 (38-50) mmHg VBG pO2 mmHg VBG HCO3 mmol/L VBG O2 Saturation % VBG Base Excess mEq/L Barometric Pressure mm/Hg Sodium 137 (136-145) mmol/L Potassium 4.0 (3.5-5.1) mmol/L Chloride 106 (98-107) mmol/L Carbon Dioxide 23 (21-32) mmol/L Anion Gap 8.0 (3-11) BUN 16 (7-18) mg/dl Creatinine 1.29 H (0.6-1.2) mg/dl Est Cr Clr Drug Dosing 40.6 ml/min Est GFR ( Amer) 45.3 Est GFR (Non-Af Amer) 39.1 BUN/Creatinine Ratio 12.6 (10-20) Glucose 140 H (70-99) mg/dl Lactate (0.4-2.0) mmol/L Calcium 9.5 (8.5-10.1) mg/dl Phosphorus 2.8 (2.5-4.9) mg/dl Magnesium 2.0 (1.8-2.4) mg/dl Total Bilirubin 2.3 H (0.2-1) mg/dl AST 281 H (15-37) U/L ALT 131 H (12-78) U/L Alkaline Phosphatase 239 H (45-117) U/L Troponin I 0.021 (0-0.045) ng/ml NT-Pro-B Natriuret Pep 2645 H (0-1800) pg/ml Total Protein 8.2 (6.4-8.2) gm/dl Albumin 3.4 (3.4-5.0) gm/dl Globulin 4.8 H (2.5-4.0) gm/dl Albumin/Globulin Ratio 0.7 L (0.9-2) Lipase (73-393) U/L Specimen Hemolysis Influenza Type A (PCR) (Neg) Influenza Type B (PCR) (Neg) 04/07/19 04/07/19 04/07/19 Range/Units 09:10 09:40 10:21 WBC (4.8-10.8) K/uL RBC (4.2-5.4) M/uL Hgb (12.0-16.0) g/dL Hct (37-47) % MCV (80-100) fL MCH (25-34) pg MCHC (32-36) g/dL RDW Std Deviation (36.4-46.3) fL RDW Coeff of Agusto (11.5-14.5) % Plt Count (130-400) K/uL MPV (7.4-10.4) fL Immature Gran % (Auto) % Neut % (Auto) % Lymph % (Auto) % [place] % (Auto) % Eos % (Auto) % Baso % (Auto) % Immature Gran # (Auto) (0.00-0.02) K/uL Neut # (Auto) (1.4-6.5) K/uL Lymph # (Auto) (1.2-3.4) K/uL [place] # (Auto) (0.11-0.59) K/uL Eos # (Auto) (0-0.5) K/uL Baso # (Auto) (0-0.2) K/uL PT (9.0-12.0) Seconds INR (0.9-1.1) APTT (21.0-31.0) Seconds PTT Ratio VBG pH (7.36-7.41) VBG pCO2 (38-50) mmHg VBG pO2 mmHg VBG HCO3 mmol/L VBG O2 Saturation % VBG Base Excess mEq/L Barometric Pressure mm/Hg Sodium (136-145) mmol/L Potassium (3.5-5.1) mmol/L Chloride (98-107) mmol/L Carbon Dioxide (21-32) mmol/L Anion Gap (3-11) BUN (7-18) mg/dl Creatinine (0.6-1.2) mg/dl Est Cr Clr Drug Dosing ml/min Est GFR ( Amer) Est GFR (Non-Af Amer) BUN/Creatinine Ratio (10-20) Glucose (70-99) mg/dl Lactate 2.8 H* (0.4-2.0) mmol/L Calcium (8.5-10.1) mg/dl Phosphorus (2.5-4.9) mg/dl Magnesium (1.8-2.4) mg/dl Total Bilirubin (0.2-1) mg/dl AST (15-37) U/L ALT (12-78) U/L Alkaline Phosphatase (45-117) U/L Troponin I (0-0.045) ng/ml NT-Pro-B Natriuret Pep (0-1800) pg/ml Total Protein (6.4-8.2) gm/dl Albumin (3.4-5.0) gm/dl Globulin (2.5-4.0) gm/dl Albumin/Globulin Ratio (0.9-2) Lipase 68711 H (73-393) U/L Specimen Hemolysis Influenza Type A (PCR) Neg for Influ A (Neg) Influenza Type B (PCR) Neg for Influ B (Neg) 04/07/19 04/07/19 Range/Units 10:21 12:22 WBC (4.8-10.8) K/uL RBC (4.2-5.4) M/uL Hgb (12.0-16.0) g/dL Hct (37-47) % MCV (80-100) fL MCH (25-34) pg MCHC (32-36) g/dL RDW Std Deviation (36.4-46.3) fL RDW Coeff of Agusto (11.5-14.5) % Plt Count (130-400) K/uL MPV (7.4-10.4) fL Immature Gran % (Auto) % Neut % (Auto) % Lymph % (Auto) % [place] % (Auto) % Eos % (Auto) % Baso % (Auto) % Immature Gran # (Auto) (0.00-0.02) K/uL Neut # (Auto) (1.4-6.5) K/uL Lymph # (Auto) (1.2-3.4) K/uL [place] # (Auto) (0.11-0.59) K/uL Eos # (Auto) (0-0.5) K/uL Baso # (Auto) (0-0.2) K/uL PT (9.0-12.0) Seconds INR (0.9-1.1) APTT (21.0-31.0) Seconds PTT Ratio VBG pH 7.45 H (7.36-7.41) VBG pCO2 34 L (38-50) mmHg VBG pO2 75 mmHg VBG HCO3 23 mmol/L VBG O2 Saturation 95.8 % VBG Base Excess -0.8 mEq/L Barometric Pressure 733.7 mm/Hg Sodium (136-145) mmol/L Potassium (3.5-5.1) mmol/L Chloride (98-107) mmol/L Carbon Dioxide (21-32) mmol/L Anion Gap (3-11) BUN (7-18) mg/dl Creatinine (0.6-1.2) mg/dl Est Cr Clr Drug Dosing ml/min Est GFR ( Amer) Est GFR (Non-Af Amer) BUN/Creatinine Ratio (10-20) Glucose (70-99) mg/dl Lactate 2.0 (0.4-2.0) mmol/L Calcium (8.5-10.1) mg/dl Phosphorus (2.5-4.9) mg/dl Magnesium (1.8-2.4) mg/dl Total Bilirubin (0.2-1) mg/dl AST (15-37) U/L ALT (12-78) U/L Alkaline Phosphatase (45-117) U/L Troponin I (0-0.045) ng/ml NT-Pro-B Natriuret Pep (0-1800) pg/ml Total Protein (6.4-8.2) gm/dl Albumin (3.4-5.0) gm/dl Globulin (2.5-4.0) gm/dl Albumin/Globulin Ratio (0.9-2) Lipase (73-393) U/L Specimen Hemolysis Influenza Type A (PCR) (Neg) Influenza Type B (PCR) (Neg) Diagnostic Findings XR chest 1V portable CLINICAL HISTORY: SEPSIS dyspnea COMPARISON STUDY: 01/02/2019 FINDINGS: Moderate stable cardiomegaly. Mild stable emphysematous change. Permanent bipolar cardiac pacemaker. Chronic pleural thickening right base laterally. Potential superimposed interstitial infiltrate left base. Pulmonary apices are clear. IMPRESSION: Chronic and postoperative change. Mild superimposed infiltrate left base. ACT 112: Negative or not required by law. The above report was generated using voice recognition software. It may contain grammatical, syntax or spelling errors. Electronically signed by: Gustavo Lamas M.D. 04/07/2019 9:48 AM Dictated: 04/07/19 09[address] -------- CT ANGIOGRAM OF THE CHEST; CT SCAN OF THE ABDOMEN AND PELVIS WITH IV CONTRAST CLINICAL HISTORY: Dyspnea. Sepsis. COMPARISON STUDY: Chest CT scans dated 10/07/2017 and 11/13/2016. Abdominal CT dated 12/31/2018. TECHNIQUE: Following the IV administration of 119 of Optiray 320, CT angiogram of the chest is performed from the upper abdomen to the thoracic inlet utilizing the pulmonary embolus protocol. Images are reviewed in the axial, sagittal, coronal planes. 3-D MIPS images are created and assessed. Subsequently, CT scan of the abdomen and pelvis was performed from the lung bases to the proximal femora. Images are reviewed in the axial, sagittal, and coronal planes. IV contrast was administered without complication. A dose lowering technique was utilized adhering to the principles of ALARA. CT DOSE: 1593.08 mGy.cm FINDINGS: CHEST: Thyroid: Atrophic. Thoracic aorta: There is atherosclerotic calcification of the thoracic aorta, which is normal in caliber and demonstrates standard 3-vessel arch anatomy. No dissection is seen. Pulmonary vasculature: The main pulmonary arteries are dilated suggesting pulmonary artery hypertension. There are no filling defects identified in the main, lobar, or segmental pulmonary arteries to indicate pulmonary embolus. Heart: A cardiac pacemaker is present within the left chest wall. The heart is enlarged and without pericardial effusion. Lungs and pleural spaces: Emphysematous change is noted. There are trace right larger left pleural effusions with associated atelectasis. Loculated fluid is noted along the right major fissure. Diffuse interlobular septal thickening is identified and there is diffuse peribronchial thickening. The trachea and central airways are clear. No airspace consolidation is seen typical for pneumonia. A 4 mm groundglass nodule at the left apex on image #238 is unchanged from prior studies. Mediastinum: There are mildly enlarged mediastinal lymph nodes. A high right paratracheal node seen on image #220 measures 12 mm in short axis. A subcarinal node measures 1.5 cm in short axis. Nadine: Clear. Axillae: There is no axillary lymphadenopathy. Bony thorax: The skeletal structures are osteopenic. No lytic or blastic lesions are identified. ABDOMEN AND PELVIS: Liver: The contrast-enhanced liver is normal in size and heterogeneous in attenuation. There is nodularity of the surface contour and hypertrophy of the left lobe. There is heterogeneous perfusion identified throughout the subcapsular right lobe. Inflammatory change in periportal edema suggested around the portal triads in the right lobe. There is mild central intrahepatic or ductal dilatation. The hepatic veins and portal veins are patent. Pneumobilia is noted in the left lobe. Gallbladder: The gallbladder is surgically absent. The common bile duct is distended, measuring up to 1.7 cm diameter. There is wall thickening identified throughout the common bile duct with surrounding inflammation. Spleen: Normal in size and attenuation. Pancreas: Infiltrate is present around the pancreatic head. See below under bowel. The pancreas is moderately atrophic. The pancreatic duct is normal in caliber. Adrenal glands: A 1.5 cm left adrenal adenoma is unchanged from prior studies. The right adrenal gland is normal in appearance. Kidneys: The contrast enhanced kidneys demonstrate cortical atrophy and are without hydronephrosis. The kidneys enhance symmetrically. Abdominal vasculature: The abdominal aorta is normal in course and caliber noting moderate to advanced atherosclerotic calcification. Stomach and bowel: There is a small hiatal hernia. The duodenum is normal in configuration. There is an inflammatory process identified around the proximal duodenum and the pancreatic head, with associated duodenal mucosal thickening, hyperemia, and edema of. A large duodenal diverticulum is noted in this region. No bowel obstruction is seen. There is mild to moderate colonic diverticulosis without CT evidence of acute diverticulitis. The appendix is well-visualized and normal. Peritoneum: There is trace pericardial ascites. No intraperitoneal free air is seen. Lymphadenopathy: Mildly enlarged upper abdominal lymph nodes are identified. A portacaval node on image #169 measures 14 mm short axis. Peripancreatic nodes measure up to 10 mm in short axis. Pelvic viscera: The bladder is normal as visualized. The endometrium is thickened and heterogeneous, measuring up to 2.3 cm in diameter. No adnexal lesion is seen. Skeletal structures: The skeletal structures are osteopenic. There is mild-to- moderate lumbosacral spondylosis. Sclerotic change is noted in the sacroiliac joints, right greater than left. No lytic or blastic lesions are seen. IMPRESSION: 1. There is no evidence of pulmonary embolus in the main, lobar, or segmental pulmonary arteries. 2. Cardiomegaly and cardiac pacemaker with evidence of congestive failure. 3. Emphysema. 4. Trace pleural effusions. 5. There is no airspace consolidation typical for pneumonia. 6. There is a large inflammatory process centered around the proximal duodenum as detailed above which also involves the adjacent pancreatic head. There is a large duodenal diverticulum in this region, and differential considerations include a duodenal diverticulitis, duodenitis, duodenal ulcer disease, or possibly acute pancreatitis. Underlying mass lesion is considered much less likely but would be impossible to exclude. Clinical laboratory correlation will be essential. 7. There is evidence of ascending cholangitis with heterogeneous perfusion throughout the right lobe of the liver. 8. No organized fluid collection is seen to suggest abscess. 9. Trace perinephric ascites. No intraperitoneal free air is seen. 10. Mildly enlarged upper abdominal lymph nodes are likely on a reactive basis. 11. The endometrium is markedly thickened and heterogeneous. This is highly concerning for endometrial neoplasm. Nonemergent gynecology follow-up and pelvic ultrasound is recommended for further assessment. 12. Colonic diverticulosis without CT evidence of acute diverticulitis. 13. The appearance of liver suggests early changes of cirrhosis. 14. Additional findings as above. CT ANGIOGRAM OF THE CHEST; CT SCAN OF THE ABDOMEN AND PELVIS WITH IV CONTRAST CLINICAL HISTORY: Dyspnea. Sepsis. COMPARISON STUDY: Chest CT scans dated 10/07/2017 and 11/13/2016. Abdominal CT dated 12/31/2018. TECHNIQUE: Following the IV administration of 119 of Optiray 320, CT angiogram of the chest is performed from the upper abdomen to the thoracic inlet utilizing the pulmonary embolus protocol. Images are reviewed in the axial, sagittal, coronal planes. 3-D MIPS images are created and assessed. Subsequently, CT scan of the abdomen and pelvis was performed from the lung bases to the proximal femora. Images are reviewed in the axial, sagittal, and coronal planes. IV contrast was administered without complication. A dose lowering technique was utilized adhering to the principles of ALARA. CT DOSE: 1593.08 mGy.cm FINDINGS: CHEST: Thyroid: Atrophic. Thoracic aorta: There is atherosclerotic calcification of the thoracic aorta, which is normal in caliber and demonstrates standard 3-vessel arch anatomy. No dissection is seen. Pulmonary vasculature: The main pulmonary arteries are dilated suggesting pulmonary artery hypertension. There are no filling defects identified in the main, lobar, or segmental pulmonary arteries to indicate pulmonary embolus. Heart: A cardiac pacemaker is present within the left chest wall. The heart is enlarged and without pericardial effusion. Lungs and pleural spaces: Emphysematous change is noted. There are trace right larger left pleural effusions with associated atelectasis. Loculated fluid is noted along the right major fissure. Diffuse interlobular septal thickening is identified and there is diffuse peribronchial thickening. The trachea and central airways are clear. No airspace consolidation is seen typical for pneumonia. A 4 mm groundglass nodule at the left apex on image #238 is unchanged from prior studies. Mediastinum: There are mildly enlarged mediastinal lymph nodes. A high right paratracheal node seen on image #220 measures 12 mm in short axis. A subcarinal node measures 1.5 cm in short axis. Nadine: Clear. Axillae: There is no axillary lymphadenopathy. Bony thorax: The skeletal structures are osteopenic. No lytic or blastic lesions are identified. ABDOMEN AND PELVIS: Liver: The contrast-enhanced liver is normal in size and heterogeneous in attenuation. There is nodularity of the surface contour and hypertrophy of the left lobe. There is heterogeneous perfusion identified throughout the subcapsular right lobe. Inflammatory change in periportal edema suggested around the portal triads in the right lobe. There is mild central intrahepatic or ductal dilatation. The hepatic veins and portal veins are patent. Pneumobilia is noted in the left lobe. Gallbladder: The gallbladder is surgically absent. The common bile duct is distended, measuring up to 1.7 cm diameter. There is wall thickening identified throughout the common bile duct with surrounding inflammation. Spleen: Normal in size and attenuation. Pancreas: Infiltrate is present around the pancreatic head. See below under bowel. The pancreas is moderately atrophic. The pancreatic duct is normal in caliber. Adrenal glands: A 1.5 cm left adrenal adenoma is unchanged from prior studies. The right adrenal gland is normal in appearance. Kidneys: The contrast enhanced kidneys demonstrate cortical atrophy and are without hydronephrosis. The kidneys enhance symmetrically. Abdominal vasculature: The abdominal aorta is normal in course and caliber noting moderate to advanced atherosclerotic calcification. Stomach and bowel: There is a small hiatal hernia. The duodenum is normal in configuration. There is an inflammatory process identified around the proximal duodenum and the pancreatic head, with associated duodenal mucosal thickening, hyperemia, and edema of. A large duodenal diverticulum is noted in this region. No bowel obstruction is seen. There is mild to moderate colonic diverticulosis without CT evidence of acute diverticulitis. The appendix is well-visualized and normal. Peritoneum: There is trace pericardial ascites. No intraperitoneal free air is seen. Lymphadenopathy: Mildly enlarged upper abdominal lymph nodes are identified. A portacaval node on image #[id number] measures 14 mm short axis. Peripancreatic nodes measure up to 10 mm in short axis. Pelvic viscera: The bladder is normal as visualized. The endometrium is thickened and heterogeneous, measuring up to 2.3 cm in diameter. No adnexal lesion is seen. Skeletal structures: The skeletal structures are osteopenic. There is [id number] lumbosacral spondylosis. Sclerotic change is noted in the sacroiliac joints, right greater than left. No lytic or blastic lesions are seen. IMPRESSION: 1. There is no evidence of pulmonary embolus in the main, lobar, or segmental pulmonary arteries. 2. Cardiomegaly and cardiac pacemaker with evidence of congestive failure. 3. Emphysema. 4. Trace pleural effusions. 5. There is no airspace consolidation typical for pneumonia. 6. There is a large inflammatory process centered around the proximal duodenum as detailed above which also involves the adjacent pancreatic head. There is a large duodenal diverticulum in this region, and differential considerations include a duodenal diverticulitis, duodenitis, duodenal ulcer disease, or possibly acute pancreatitis. Underlying mass lesion is considered much less likely but would be impossible to exclude. Clinical laboratory correlation will be essential. 7. There is evidence of ascending cholangitis with heterogeneous perfusion throughout the right lobe of the liver. 8. No organized fluid collection is seen to suggest abscess. 9. Trace perinephric ascites. No intraperitoneal free air is seen. 10. Mildly enlarged upper abdominal lymph nodes are likely on a reactive basis. 11. The endometrium is markedly thickened and heterogeneous. This is highly concerning for endometrial neoplasm. Nonemergent gynecology follow-up and pelvic ultrasound is recommended for further assessment. 12. Colonic diverticulosis without CT evidence of acute diverticulitis. 13. The appearance of liver suggests early changes of cirrhosis. 14. Additional findings as above. ACT 112: Negative or not required by law. Electronically signed by: Troy Platt M.D. 04/07/2019 12:50 PM Dictated: 04/07/19 1229 Transcribed: 04/07/19 1229 ECG Additional Comments: EKG wtih atrial fibrillation at 90bpm, left axis with LAFB, QRS=94, APp=357 Code Status & VTE Plan Code Status Full code VTE Prophylaxis Plan VTE Prophylaxis will be ordered: Yes PG Care Time/CCT Total # of Minutes Spent Total Time Spent with Patient: Total time spent is greater than 50% in coordination of care (as documented) at patient's floor/unit and/or counseling patient: Coding Level of Care Code 36080 Initial Inpt Care Lvl 3 Diagnoses Shortness of breath R06.02 Ascending cholangitis K83.09 Pancreatitis K85.90 Chronicity: acute Obstructive sleep apnea G47.33 COPD (chronic obstructive pulmonary disease) J44.9 COPD type: unspecified COPD GERD (gastroesophageal reflux disease) K21.9 Esophagitis presence: esophagitis presence not specified 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 Atrial fibrillation I48.0 Atrial fibrillation type: paroxysmal Hypertension I10 Hypertension type: essential hypertension Restless leg syndrome G25.81 (1) Atrial fibrillation Atrial fibrillation type: paroxysmal Qualified Code(s): I48.0 - Paroxysmal atrial fibrillation (2) COPD (chronic obstructive pulmonary disease) COPD type: unspecified COPD Qualified Code(s): J44.9 - Chronic obstructive pulmonary disease, unspecified (3) GERD (gastroesophageal reflux disease) Esophagitis presence: esophagitis presence not specified Qualified Code(s): K21.9 - Gastro-esophageal reflux disease without esophagitis (4) Hypertension Hypertension type: essential hypertension Qualified Code(s): I10 - Essential (primary) hypertension (5) Pancreatitis Chronicity: acute
[2019-04-07] MEDS ORDERED: LEVALBUTEROL TARTRATE 15 GM HFA.AER.AD INH PRN (14:26)
[2019-04-07] MEDS ORDERED: POLYETHYLENE (MIRALAX) 17 GM PACK PO PRN (14:26)
[2019-04-07] MEDS ORDERED: ACETAMINOPHEN 500 MG TAB PO PRN (14:26)
[2019-04-07] MEDS ORDERED: SODIUM CHLORIDE 0.9% 1000ML 1,000 ML IV SCH (15:00)
[2019-04-07] MEDS: PIPERACILLIN/TAZOBACTAM 3.375 GM in DEXTROSE 5% 100 ML IV SCH (15:42)
[2019-04-07] MEDS ORDERED: ONDANSETRON INJ 2 MG/ML 2 ML VIAL IV PRN (16:10)
[2019-04-07] MEDS ORDERED: MoRPHine SULFATE 2 MG/ML CARP IV PRN (16:10)
--- NOTE | 2019-04-07 16:44 | Consultation Report ---
DATE OF CONSULTATION: 04/07/2019 REASON FOR EVALUATION: Acute pancreatitis. HISTORY OF PRESENT ILLNESS: The patient is an 78-year-old female who presented to the Emergency Room today with acute-onset right upper quadrant pain that she has actually had for a few weeks, but gotten very much worse today. There is pain radiating into her back and associated shortness of breath. She also had chills and rigors. When she presented to the Emergency Room, her lipase was over 13,[address] scan of the abdomen showed inflammation of the pancreas near the head as well as some inflammation around the duodenum and common bile duct. Her liver tests were slightly elevated as well suggesting a possible common duct stone. Of note is that the patient has had multiple stones in the past following her gallbladder operation. She had an ERCP done around December and had some stones removed, sphincterotomy performed and a stent placed, but there were several multiple large stones remaining and she underwent a second ERCP at [facility] on 02/09/2019. The stent was removed and the common bile duct was dilated and multiple stones were removed. At the end of the procedure, no stones remained according to the endoscopist. The patient presents with the above symptoms and has been started on IV Zosyn and cultures obtained. She does have a pacemaker, so she is not able to get an MRI. PAST MEDICAL HISTORY: Remarkable for COPD, obstructive sleep apnea. She has had a cholecystectomy for multiple gallstones, acid reflux, hypothyroidism, chronic atrial fibrillation, hypertension, restless legs syndrome. MEDICATIONS: Include acetaminophen, baby aspirin, vitamin D, Lasix, albuterol, metoprolol, potassium, Requip, famotidine, gabapentin, MiraLax, Trelegy and levothyroxine. ALLERGIES: None. FAMILY HISTORY: Noncontributory. SOCIAL HISTORY: The patient is retired, , lives alone. Former smoker, does not use any alcohol. REVIEW OF SYSTEMS: Positive for shortness of breath, abdominal pain, and weakness. PHYSICAL EXAMINATION: GENERAL: The patient is currently in no acute distress with nasal oxygen on. VITAL SIGNS: Blood pressure is 114/50, pulse is 93. She is afebrile. O2 saturations 96% on nasal oxygen. ABDOMEN: Shows cholecystectomy scars. There is tenderness in the right upper quadrant and into the back. LUNGS: Showed decreased breath sounds. CHEST: She has a pacemaker in place. IMPRESSION AND PLAN: The patient has acute pancreatitis, most likely from a retained common duct stone. At this point, I would recommend continuing the IV antibiotics overnight and as long as she remains stable, we will proceed with an ERCP tomorrow. This will give her some time to get the antibiotics on board if she is septic and hopefully allow some willing to go down as it may be difficult to identify the papilla with a lot of edema and if she does have a retained stone, it is important to get it out, so the pancreatitis can resolve and her infection if she has cholangitis to improve. We will plan on doing this tomorrow provided she remains stable. AYLIN
--- NOTE | 2019-04-07 17:11 | Emergency Department Note ---
Entered by Laurie Camarena acting as a scribe for History of Present Illness General Chief complaint: Illness Time Seen by Provider: 04/07/19 09:01 Source: patient and family History of Present Illness Onset (ago): hour(s) (0400 this morning) Location: left (lung) and right (lung) Severity: similar to prior episodes Pain Consistency: + other (persistent) Quality: + other (shortness of breath) Relieved By: not by other (C-PAP) Associated symptoms: + shortness of breath and + other (abdominal pain); no chest pain and no nausea/vomiting Treatments prior to arrival: other (C-PAP) The patient is an 78 year old female presenting to the Emergency Department via EMS complaining of persistent shortness of breath starting at 0400 this morning. The patient reports that she is short of breath. She states that her right lower abdomen is painful. 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 The patients family explains that the patient has experienced these symptoms before as she has COPD and has had recent issues with her gallbladder. They note that the patient had cholecystectomy previously and retained stones most recently removed at the end of 2018. She reports upper abdominal pain that never completely went away since then. They add that the patient recently received vaccinations for Hepatitis A and B 4 days ago. The patient denies chest pain, nausea and vomiting. Home Medications Home Medications Medication Instructions Recorded Confirmed Type acetaminophen 500 mg tablet 500 mg PO Q4H PRN 12/03/18 04/07/19 History aspirin 81 mg tablet,delayed 81 mg PO QAM 12/03/18 04/07/19 History release cholecalciferol (vitamin D3) 125 5,000 units PO QAM 12/03/18 04/07/19 History mcg (5,000 unit) tablet furosemide 20 mg tablet 20 mg PO MOTUWETHFRSA@0800 12/03/18 04/07/19 History levalbuterol tartrate 45 2 puffs INH Q4H PRN gm 12/03/18 04/07/19 History mcg/actuation aerosol inhaler metoprolol succinate 50 mg 50 mg PO QAM 12/03/18 04/07/19 History tablet,extended release 24 hr potassium chloride 20 mEq 20 meq PO QAM 12/03/18 04/07/19 History tablet,extended release(part/cryst) ropinirole 1 mg tablet 1 mg PO QPM tab 12/03/18 04/07/19 History famotidine 20 mg tablet 20 mg PO BID 12/16/18 04/07/19 History gabapentin 100 mg capsule 100 mg PO HS 12/16/18 04/07/19 History polyethylene glycol 3350 [Miralax] 17 gm PO DAILY PRN #30 ea 01/02/19 04/07/19 Rx Trelegy Ellipta 1 puffs INHALATION QAM 04/07/19 04/07/19 History levothyroxine 125 mcg PO QAM 04/07/19 04/07/19 History Allergies Allergy/AdvReac Type Severity Reaction Status Date / Time No Known Drug Allergies Allergy Verified 04/07/19 11:41 Past Med/Surg History Medical History Atrial fibrillation (Chronic) Common bile duct (CBD) obstruction COPD (chronic obstructive pulmonary disease) GERD (gastroesophageal reflux disease) Hypertension (Chronic) Hypothyroidism associated with surgical procedure Obstructive sleep apnea Pacemaker (Chronic) Restless leg syndrome (Chronic) Surgical History History of ERCP S/P cholecystectomy (Resolved) S/P thyroidectomy (Resolved) Family History Other Cancer Social History Preferred Language: Lithuanian Communication Ability: Effective 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 and A total of 10 systems reviewed and were otherwise negative Physical Exam Vital Signs Vital Signs - 24 hr 04/07/19 09:00 04/07/19 09:02 04/07/19 09:06 Temperature Temperature Source Pulse Rate 86 91 H 95 H Pulse Rate [Apical] Pulse Rate from SpO2 Sensor 95 H 95 H Pulse Rhythm Respiratory Rate 36 H 33 H 35 H Respiratory Effort / Characteristics Spontaneous Labored Short of Breath Respiratory Depth Normal Respiratory Pattern Tachypnea Blood Pressure 172/92 H Blood Pressure Mean 120 Pulse Oximetry 96 97 98 Oxygen Delivery Method Fraction of Inspired Oxygen 30 Sepsis Action Taken by Nursing 04/07/19 09:07 04/07/19 09:30 04/07/19 09:31 Temperature 36.7 C Temperature Source Oral Pulse Rate 85 79 80 Pulse Rate [Apical] Pulse Rate from SpO2 Sensor 78 78 Pulse Rhythm Respiratory Rate 40 H 26 H 28 H Respiratory Effort / Characteristics Respiratory Depth Normal Respiratory Pattern Blood Pressure 172/92 H 143/67 H Blood Pressure Mean 118 95 Pulse Oximetry 96 95 96 Oxygen Delivery Method CPAP Fraction of Inspired Oxygen Sepsis Action Taken by Nursing No Action Required 04/07/19 09:44 04/07/19 09:53 04/07/19 10:00 Temperature Temperature Source Pulse Rate 82 80 Pulse Rate [Apical] 80 Pulse Rate from SpO2 Sensor 85 Pulse Rhythm Irregular Respiratory Rate 30 H 23 Respiratory Effort / Characteristics Spontaneous Labored Short of Breath Respiratory Depth Respiratory Pattern Blood Pressure 147/85 H Blood Pressure Mean 106 Pulse Oximetry 96 99 96 Oxygen Delivery Method BiPAP BiPAP BiPAP Fraction of Inspired Oxygen 30 Sepsis Action Taken by Nursing 04/07/19 10:30 04/07/19 11:00 04/07/19 11:30 Temperature Temperature Source Pulse Rate 83 94 H 93 H Pulse Rate [Apical] Pulse Rate from SpO2 Sensor 86 92 H 101 H Pulse Rhythm Respiratory Rate 20 26 H 36 H Respiratory Effort / Characteristics Respiratory Depth Respiratory Pattern Blood Pressure 108/66 90/63 L 114/50 L Blood Pressure Mean 79 78 65 Pulse Oximetry 99 98 96 Oxygen Delivery Method BiPAP BiPAP BiPAP Fraction of Inspired Oxygen Sepsis Action Taken by Nursing 04/07/19 12:00 04/07/19 12:06 04/07/19 12:17 Temperature Temperature Source Pulse Rate 87 87 Pulse Rate [Apical] Pulse Rate from SpO2 Sensor 89 Pulse Rhythm Respiratory Rate 30 H 36 H Respiratory Effort / Characteristics Spontaneous Labored Short of Breath Respiratory Depth Normal Respiratory Pattern Tachypnea Blood Pressure 114/64 114/64 Blood Pressure Mean 77 77 Pulse Oximetry 97 96 Oxygen Delivery Method BiPAP Fraction of Inspired Oxygen 30 Sepsis Action Taken by Nursing GENERAL: Patient is ill appearing. Awake, alert, in moderate respiratory distress HENT: Normocephalic, atraumatic. Oropharynx with dry mucous membranes and otherwise unremarkable. EYES: Normal conjunctiva. Sclera non-icteric. NECK: Supple. No nuchal rigidity. FROM. No JVD. RESPIRATORY: Moderate respiratory distress. Diminished breath sounds at the bases with scant intermittent wheezes. CARDIAC: Regular rate, normal rhythm. Extremities warm and well perfused. Pulses equal. ABDOMEN: Soft, non-distended. Mild RUQ discomfot without discrete tenderness to palpation. No rebound or guarding. No masses. RECTAL: Deferred. MUSCULOSKELETAL: Chest examination reveals no tenderness. The back is symmetrical on inspection without obvious abnormality. There is no CVA tenderness to palpation. No joint edema. LOWER EXTREMITIES: 1+ bilateral lower extremity edema. Chronic LLE discoloration per the patient. Minor superficial developing ulcerations. NEURO: Normal sensorium. No sensory or motor deficits noted. SKIN: No rash or jaundice noted. Course Course 924: The patient was evaluated in room C3, and a complete history and physical examination were performed. 1138: I discussed the patients case with Dr. Ashkan DUNCAN hospitalist. He will evaluate the patient for further management. 1151: I updated the patient and her family at this time. Administered Medications Famotidine (Pepcid) 20 mg PO BID [facility] Stop: 05/07/19 20:59 Last Admin: 04/07/19 20:43 Dose: 20 mg Documented by: [id number] Gabapentin (Neurontin) 100 mg PO HS JENNIFER Stop: 05/07/19 20:59 Last Admin: 04/07/19 20:44 Dose: 100 mg Documented by: [id number] Piperacillin Sod/Tazobactam (Sod 3.375 gm/ Dextrose) 115 mls @ 28.75 mls/hr IV Q8H JENNIFER; Protocol Stop: 04/17/19 15:59 Last Infusion: 04/07/19 19:19 Dose: 0 mls/hr Documented by: [id number] Admin: 04/07/19 15:42 Dose: 28.8 mls/hr Documented by: [id number] Lactated Ringer's (Lr) 1,000 mls @ 125 mls/hr IV .Q8H JENNIFER Stop: 04/08/19 07:59 Last Admin: 04/07/19 17:43 Dose: 125 mls/hr Documented by: [id number] Ioversol (Optiray 320 125ml) 119 ml IV ONCE PRN PRN Reason: Interaction Checking Stop: 04/11/19 12:09 Last Admin: 04/07/19 12:10 Dose: 119 ml Documented by: [id number] Ropinirole HCl (Requip) 1 mg PO QPM JENNIFER Stop: 05/07/19 20:59 Last Admin: 04/07/19 20:44 Dose: 1 mg Documented by: [id number] Discontinued Medications Albuterol (Duoneb) 3 ml NEB NOW STA Stop: 04/07/19 09:30 Last Admin: 04/07/19 10:05 Dose: Not Given Documented by: [id number] Albuterol (Duoneb) 12 ml NEB ONE ONE Stop: 04/07/19 10:05 Last Admin: 04/07/19 09:38 Dose: 12 ml Documented by: [id number] Sodium Chloride (Nss) 500 mls @ 999 mls/hr IV .Q31M ONE Stop: 04/07/19 10:00 Last Infusion: 04/07/19 11:31 Dose: 0 mls/hr Documented by: [id number] Admin: 04/07/19 09:44 Dose: 999 mls/hr Documented by: [id number] Piperacillin Sod/Tazobactam Sod (Zosyn) 4.5 gm in 120 mls @ 240 mls/hr IV NOW ONE Stop: 04/07/19 11:56 Last Infusion: 04/07/19 12:41 Dose: 0 mls/hr Documented by: [id number] Infusion: 04/07/19 12:15 Dose: 240 mls/hr Documented by: [id number] Infusion: 04/07/19 12:05 Dose: 0 mls/hr Documented by: [id number] Admin: 04/07/19 11:44 Dose: 240 mls/hr Documented by: [id number] Vancomycin HCl 2,000 mg/ (Sodium Chloride) 540 mls @ 200 mls/hr IV NOW ONE Stop: 04/07/19 14:08 Last Infusion: 04/07/19 15:45 Dose: 0 mls/hr Documented by: [id number] Admin: 04/07/19 12:45 Dose: 200 mls/hr Documented by: [id number] Doxycycline Hyclate 100 mg/ (Dextrose) 110 mls @ 50 mls/hr IV NOW STA Stop: 04/07/19 13:38 Last Infusion: 04/07/19 15:14 Dose: 0 mls/hr Documented by: [id number] Admin: 04/07/19 12:45 Dose: 50 mls/hr Documented by: [id number] Sodium Chloride (Nss 1000ml) 1,000 mls @ 75 mls/hr IV .[id number] JENNIFER Stop: 05/07/19 14:59 Last Infusion: 04/07/19 18:22 Dose: 0 mls/hr Documented by: [id number] Admin: 04/07/19 15:25 Dose: 75 mls/hr Documented by: [id number] Methylprednisolone (Solumedrol) 125 mg IV NOW STA Stop: 04/07/19 09:30 Last Admin: 04/07/19 09:37 Dose: 125 mg Documented by: [id number] Critical Care Time Critical Care Time: Yes Total Critical Care Time: 65 I have personally spent 65 minutes of critical care time in the direct management of this patient. This includes bedside care, interpretation of diag nostic studies, and testing, discussion with consultants, patient, and family members, and other required patient management activities. This 65 minutes is in excess of all separately billable procedures. Medical Decision Making Differential Diagnosis Differential diagnoses includes but is not limited to pneumonia, bronchitis, COPD/Asthma exacerbation, pneumothorax, pulmonary embolism, congestive heart failure, acute coronary syndrome. Medical Records Attestation: I reviewed the patient's medical records. Home Medications Current Medication List: was personally reviewed by me Laboratory Data Attestation: I reviewed the patient's lab results. Result diagrams: 04/07/19 09:10 04/07/19 09:10 Lab Results 04/07/19 04/07/19 04/07/19 Range/Units 09:10 09:10 09:10 WBC 20.18 H (4.8-10.8) K/uL RBC 4.41 (4.2-5.4) M/uL Hgb 14.2 (12.0-16.0) g/dL Hct 42.7 (37-47) % MCV 96.8 (80-100) fL MCH 32.2 (25-34) pg MCHC 33.3 (32-36) g/dL RDW Std Deviation 50.4 H (36.4-46.3) fL RDW Coeff of Agusto 14.0 (11.5-14.5) % Plt Count 294 (130-400) K/uL MPV 9.8 (7.4-10.4) fL Immature Gran % (Auto) 0.4 % Neut % (Auto) 92.2 % Lymph % (Auto) 3.6 % Wetzel % (Auto) 3.5 % Eos % (Auto) 0.2 % Baso % (Auto) 0.1 % Immature Gran # (Auto) 0.09 H (0.00-0.02) K/uL Neut # (Auto) 18.59 H (1.4-6.5) K/uL Lymph # (Auto) 0.73 L (1.2-3.4) K/uL Wetzel # (Auto) 0.70 H (0.11-0.59) K/uL Eos # (Auto) 0.04 (0-0.5) K/uL Baso # (Auto) 0.03 (0-0.2) K/uL PT 10.5 (9.0-12.0) Seconds INR 1.0 (0.9-1.1) APTT 21.2 (21.0-31.0) Seconds PTT Ratio 0.8 VBG pH (7.36-7.41) VBG pCO2 (38-50) mmHg VBG pO2 mmHg VBG HCO3 mmol/L VBG O2 Saturation % VBG Base Excess mEq/L Barometric Pressure mm/Hg Sodium 137 (136-145) mmol/L Potassium 4.0 (3.5-5.1) mmol/L Chloride 106 (98-107) mmol/L Carbon Dioxide 23 (21-32) mmol/L Anion Gap 8.0 (3-11) BUN 16 (7-18) mg/dl Creatinine 1.29 H (0.6-1.2) mg/dl Est Cr Clr Drug Dosing 40.6 ml/min Est GFR ( Amer) 45.3 Est GFR (Non-Af Amer) 39.1 BUN/Creatinine Ratio 12.6 (10-20) Glucose 140 H (70-99) mg/dl Lactate (0.4-2.0) mmol/L Calcium 9.5 (8.5-10.1) mg/dl Phosphorus 2.8 (2.5-4.9) mg/dl Magnesium 2.0 (1.8-2.4) mg/dl Total Bilirubin 2.3 H (0.2-1) mg/dl AST 281 H (15-37) U/L ALT 131 H (12-78) U/L Alkaline Phosphatase 239 H (45-117) U/L Troponin I 0.021 (0-0.045) ng/ml NT-Pro-B Natriuret Pep 2645 H (0-1800) pg/ml Total Protein 8.2 (6.4-8.2) gm/dl Albumin 3.4 (3.4-5.0) gm/dl Globulin 4.8 H (2.5-4.0) gm/dl Albumin/Globulin Ratio 0.7 L (0.9-2) Lipase (73-393) U/L Specimen Hemolysis Influenza Type A (PCR) (Neg) Influenza Type B (PCR) (Neg) 04/07/19 04/07/19 04/07/19 Range/Units 09:10 09:40 10:21 WBC (4.8-10.8) K/uL RBC (4.2-5.4) M/uL Hgb (12.0-16.0) g/dL Hct (37-47) % MCV (80-100) fL MCH (25-34) pg MCHC (32-36) g/dL RDW Std Deviation (36.4-46.3) fL RDW Coeff of Agusto (11.5-14.5) % Plt Count (130-400) K/uL MPV (7.4-10.4) fL Immature Gran % (Auto) % Neut % (Auto) % Lymph % (Auto) % Wetzel % (Auto) % Eos % (Auto) % Baso % (Auto) % Immature Gran # (Auto) (0.00-0.02) K/uL Neut # (Auto) (1.4-6.5) K/uL Lymph # (Auto) (1.2-3.4) K/uL Wetzel # (Auto) (0.11-0.59) K/uL Eos # (Auto) (0-0.5) K/uL Baso # (Auto) (0-0.2) K/uL PT (9.0-12.0) Seconds INR (0.9-1.1) APTT (21.0-31.0) Seconds PTT Ratio VBG pH (7.36-7.41) VBG pCO2 (38-50) mmHg VBG pO2 mmHg VBG HCO3 mmol/L VBG O2 Saturation % VBG Base Excess mEq/L Barometric Pressure mm/Hg Sodium (136-145) mmol/L Potassium (3.5-5.1) mmol/L Chloride (98-107) mmol/L Carbon Dioxide (21-32) mmol/L Anion Gap (3-11) BUN (7-18) mg/dl Creatinine (0.6-1.2) mg/dl Est Cr Clr Drug Dosing ml/min Est GFR ( Amer) Est GFR (Non-Af Amer) BUN/Creatinine Ratio (10-20) Glucose (70-99) mg/dl Lactate 2.8 H* (0.4-2.0) mmol/L Calcium (8.5-10.1) mg/dl Phosphorus (2.5-4.9) mg/dl Magnesium (1.8-2.4) mg/dl Total Bilirubin (0.2-1) mg/dl AST (15-37) U/L ALT (12-78) U/L Alkaline Phosphatase (45-117) U/L Troponin I (0-0.045) ng/ml NT-Pro-B Natriuret Pep (0-1800) pg/ml Total Protein (6.4-8.2) gm/dl Albumin (3.4-5.0) gm/dl Globulin (2.5-4.0) gm/dl Albumin/Globulin Ratio (0.9-2) Lipase 22874 H (73-393) U/L Specimen Hemolysis Influenza Type A (PCR) Neg for Influ A (Neg) Influenza Type B (PCR) Neg for Influ B (Neg) 04/07/19 04/07/19 Range/Units 10:21 12:22 WBC (4.8-10.8) K/uL RBC (4.2-5.4) M/uL Hgb (12.0-16.0) g/dL Hct (37-47) % MCV (80-100) fL MCH (25-34) pg MCHC (32-36) g/dL RDW Std Deviation (36.4-46.3) fL RDW Coeff of Agusto (11.5-14.5) % Plt Count (130-400) K/uL MPV (7.4-10.4) fL Immature Gran % (Auto) % Neut % (Auto) % Lymph % (Auto) % Wetzel % (Auto) % Eos % (Auto) % Baso % (Auto) % Immature Gran # (Auto) (0.00-0.02) K/uL Neut # (Auto) (1.4-6.5) K/uL Lymph # (Auto) (1.2-3.4) K/uL Wetzel # (Auto) (0.11-0.59) K/uL Eos # (Auto) (0-0.5) K/uL Baso # (Auto) (0-0.2) K/uL PT (9.0-12.0) Seconds INR (0.9-1.1) APTT (21.0-31.0) Seconds PTT Ratio VBG pH 7.45 H (7.36-7.41) VBG pCO2 34 L (38-50) mmHg VBG pO2 75 mmHg VBG HCO3 23 mmol/L VBG O2 Saturation 95.8 % VBG Base Excess -0.8 mEq/L Barometric Pressure 733.7 mm/Hg Sodium (136-145) mmol/L Potassium (3.5-5.1) mmol/L Chloride (98-107) mmol/L Carbon Dioxide (21-32) mmol/L Anion Gap (3-11) BUN (7-18) mg/dl Creatinine (0.6-1.2) mg/dl Est Cr Clr Drug Dosing ml/min Est GFR ( Amer) Est GFR (Non-Af Amer) BUN/Creatinine Ratio (10-20) Glucose (70-99) mg/dl Lactate 2.0 (0.4-2.0) mmol/L Calcium (8.5-10.1) mg/dl Phosphorus (2.5-4.9) mg/dl Magnesium (1.8-2.4) mg/dl Total Bilirubin (0.2-1) mg/dl AST (15-37) U/L ALT (12-78) U/L Alkaline Phosphatase (45-117) U/L Troponin I (0-0.045) ng/ml NT-Pro-B Natriuret Pep (0-1800) pg/ml Total Protein (6.4-8.2) gm/dl Albumin (3.4-5.0) gm/dl Globulin (2.5-4.0) gm/dl Albumin/Globulin Ratio (0.9-2) Lipase (73-393) U/L Specimen Hemolysis Influenza Type A (PCR) (Neg) Influenza Type B (PCR) (Neg) Imaging Data Radiologist's Impression: Radiology results as stated below per my review and the radiologist's interpretation: CT ANGIOGRAM OF THE CHEST; CT SCAN OF THE ABDOMEN AND PELVIS WITH IV CONTRAST CLINICAL HISTORY: Dyspnea. Sepsis. COMPARISON STUDY: Chest CT scans dated 10/07/2017 and 11/13/2016. Abdominal CT dated 12/31/2018. TECHNIQUE: Following the IV administration of 119 of Optiray 320, CT angiogram of the chest is performed from the upper abdomen to the thoracic inlet utilizing the pulmonary embolus protocol. Images are reviewed in the axial, sagittal, coronal planes. 3-D MIPS images are created and assessed. Subsequently, CT scan of the abdomen and pelvis was performed from the lung bases to the proximal femora. Images are reviewed in the axial, sagittal, and coronal planes. IV contrast was administered without complication. A dose lowering technique was utilized adhering to the principles of ALARA. CT DOSE: 1593.08 mGy.cm FINDINGS: CHEST: Thyroid: Atrophic. Thoracic aorta: There is atherosclerotic calcification of the thoracic aorta, which is normal in caliber and demonstrates standard 3-vessel arch anatomy. No dissection is seen. Pulmonary vasculature: The main pulmonary arteries are dilated suggesting pulmonary artery hypertension. There are no filling defects identified in the main, lobar, or segmental pulmonary arteries to indicate pulmonary embolus. Heart: A cardiac pacemaker is present within the left chest wall. The heart is enlarged and without pericardial effusion. Lungs and pleural spaces: Emphysematous change is noted. There are trace right larger left pleural effusions with associated atelectasis. Loculated fluid is noted along the right major fissure. Diffuse interlobular septal thickening is identified and there is diffuse peribronchial thickening. The trachea and central airways are clear. No airspace consolidation is seen typical for pneumonia. A 4 mm groundglass nodule at the left apex on image #238 is unchanged from prior studies. Mediastinum: There are mildly enlarged mediastinal lymph nodes. A high right paratracheal node seen on image #220 measures 12 mm in short axis. A subcarinal node measures 1.5 cm in short axis. Nadine: Clear. Axillae: There is no axillary lymphadenopathy. Bony thorax: The skeletal structures are osteopenic. No lytic or blastic lesions are identified. ABDOMEN AND PELVIS: Liver: The contrast-enhanced liver is normal in size and heterogeneous in attenuation. There is nodularity of the surface contour and hypertrophy of the left lobe. There is heterogeneous perfusion identified throughout the subcapsular right lobe. Inflammatory change in periportal edema suggested around the portal triads in the right lobe. There is mild central intrahepatic or ductal dilatation. The hepatic veins and portal veins are patent. Pneumobilia is noted in the left lobe. Gallbladder: The gallbladder is surgically absent. The common bile duct is distended, measuring up to 1.7 cm diameter. There is wall thickening identified throughout the common bile duct with surrounding inflammation. Spleen: Normal in size and attenuation. Pancreas: Infiltrate is present around the pancreatic head. See below under bowel. The pancreas is moderately atrophic. The pancreatic duct is normal in caliber. Adrenal glands: A 1.5 cm left adrenal adenoma is unchanged from prior studies. The right adrenal gland is normal in appearance. Kidneys: The contrast enhanced kidneys demonstrate cortical atrophy and are without hydronephrosis. The kidneys enhance symmetrically. Abdominal vasculature: The abdominal aorta is normal in course and caliber noting moderate to advanced atherosclerotic calcification. Stomach and bowel: There is a small hiatal hernia. The duodenum is normal in configuration. There is an inflammatory process identified around the proximal duodenum and the pancreatic head, with associated duodenal mucosal thickening, hyperemia, and edema of. A large duodenal diverticulum is noted in this region. No bowel obstruction is seen. There is mild to moderate colonic diverticulosis without CT evidence of acute diverticulitis. The appendix is well-visualized and normal. Peritoneum: There is trace pericardial ascites. No intraperitoneal free air is seen. Lymphadenopathy: Mildly enlarged upper abdominal lymph nodes are identified. A portacaval node on image #169 measures 14 mm short axis. Peripancreatic nodes measure up to 10 mm in short axis. Pelvic viscera: The bladder is normal as visualized. The endometrium is thickened and heterogeneous, measuring up to 2.3 cm in diameter. No adnexal lesion is seen. Skeletal structures: The skeletal structures are osteopenic. There is [id number] lumbosacral spondylosis. Sclerotic change is noted in the sacroiliac joints, right greater than left. No lytic or blastic lesions are seen. IMPRESSION: 1. There is no evidence of pulmonary embolus in the main, lobar, or segmental pulmonary arteries. 2. Cardiomegaly and cardiac pacemaker with evidence of congestive failure. 3. Emphysema. 4. Trace pleural effusions. 5. There is no airspace consolidation typical for pneumonia. 6. There is a large inflammatory process centered around the proximal duodenum as detailed above which also involves the adjacent pancreatic head. There is a large duodenal diverticulum in this region, and differential considerations include a duodenal diverticulitis, duodenitis, duodenal ulcer disease, or possibly acute pancreatitis. Underlying mass lesion is considered much less likely but would be impossible to exclude. Clinical laboratory correlation will be essential. 7. There is evidence of ascending cholangitis with heterogeneous perfusion throughout the right lobe of the liver. 8. No organized fluid collection is seen to suggest abscess. 9. Trace perinephric ascites. No intraperitoneal free air is seen. 10. Mildly enlarged upper abdominal lymph nodes are likely on a reactive basis. 11. The endometrium is markedly thickened and heterogeneous. This is highly concerning for endometrial neoplasm. Nonemergent gynecology follow-up and pelvic ultrasound is recommended for further assessment. 12. Colonic diverticulosis without CT evidence of acute diverticulitis. 13. The appearance of liver suggests early changes of cirrhosis. 14. Additional findings as above. ACT 112: Negative or not required by law. Electronically signed by: Troy Platt M.D. 04/07/2019 12:50 PM XR chest 1V portable CLINICAL HISTORY: SEPSIS dyspnea COMPARISON STUDY: 01/02/2019 FINDINGS: Moderate stable cardiomegaly. Mild stable emphysematous change. Permanent bipolar cardiac pacemaker. Chronic pleural thickening right base laterally. Potential superimposed interstitial infiltrate left base. Pulmonary apices are clear. IMPRESSION: Chronic and postoperative change. Mild superimposed infiltrate left base. ACT 112: Negative or not required by law. The above report was generated using voice recognition software. It may contain grammatical, syntax or spelling errors. Electronically signed by: Gustavo Lamas M.D. 04/07/2019 9:48 AM ECG Data Attestation: I personally reviewed and interpreted this ECG as follows: Indication: + SOB/dyspnea Rate (beats per minute): 90 Rhythm: + atrial fibrillation ECG Intervals/blocks: + Left anterior fascicular block, + Normal QRS (94) and + Normal QT-c (362) ECG ST segments: no ST depression and no ST elevation Comparison ECG Date: from (12/31/18) Change: no significant change Blood Pressure Blood Pressure Findings: Low blood pressure Blood Pressure Disposition: further management by hospitalist MDM Narrative The patient is a pleasant 78-year-old woman with a past medical history of [place] on nocturnal CPAP, COPD on nocturnal oxygen, hypertension, hyperlipidemia, hi story of GI bleed, history of cholecystectomy remotely , choledocholithiasis/retained biliary stone with h/o sphincterotomy, most recently January 2019 who presents emergency department with acute onset respiratory distress with significant work of breathing placed on BiPAP by EMS per HPI. On arrival patient is in moderate respiratory distress with labored breathing and accessory muscle use. She has diminished breath sounds at the bases with scattered wheezes. She has mild right upper quadrant abdominal discomfort without discrete tenderness. She reports this pain never really went completely away since January. EKG without overt acute ischemia. Chest x-ray with left basilar infiltrate. WBC 20 K. H/H and platelets within normal limits. VBG unremarkable. Chemistry without acidosis. Creatinine 1.2 within prior range of values in the setting of CKD. Lactate initially 2.8. Elect rolytes unremarkable. LFTs with new elevation with total bilirubin 2.3, AST and ALT to 280 and 130, respectively. Alk phos 239 increased from recent though within a range of her values since December 2018 in the setting of her recent biliary disease. Lipase newly elevated at 13K. Flu negative. Given the patient's respiratory failure in the setting of her leukocytosis she was ordered empirically for Zosyn, vancomycin and doxycycline. Additionally for further clarification of her exam and lab findings CT of the chest and abdomen pelvis were ordered and pending. Case was discussed with Dr. Amy Luther, [facility] [place] [place], who evaluate the patient for admission. CT results negative for PE. Findings c/w ascending cholangitis and pancreatitis. Management per admitting team who has consulted GI. Impression & Plan Acute on chronic respiratory failure with hypoxia, Pneumonia, Leukocytosis, Ascending cholangitis, Pancreatitis Discharge Plan Visit Data *Final* Discharge Date/Time: 02/18/20 13:33 Chief Complaint: Illness ED Provider: Reg Liang Discharge Problem: Acute on chronic respiratory failure with hypoxia, Pneumonia, Leukocytosis, Ascending cholangitis, Pancreatitis Patient Disposition: Admitted As Inpatient Discharge Instructions Interventions: ED Discharge Assessment Last Done: 04/07/19 13:33 Discharge Problem: Pneumonia Qualifiers: Pneumonia type: due to unspecified organism Laterality: left Lung location: lower lobe of lung Qualified Code(s): J18.9 - Pneumonia, unspecified organism Leukocytosis Qualifiers: Leukocytosis type: unspecified Qualified Code(s): D72.829 - Elevated white blood cell count, unspecified The scribe's documentation has been prepared under my direction and personally reviewed by me in its entirety. I confirm that the note above accurately reflects all work, treatment, procedures, and medical decision making performed by me.
--- NOTE | 2019-04-07 17:31 | Ultrasound Report ---
US venous doppler LE LT CLINICAL HISTORY: Left leg swelling COMPARISON STUDY: April 2016 FINDINGS: Real-time and color flow Doppler imaging were performed. Flow was seen within the femoral, popliteal and calf veins with no intraluminal thrombus demonstrated. The saphenous vein is patent. Th ere is a 48 x 18 x 17 mm left popliteal cyst . The left popliteal and common femoral waveforms demonstrate prominent pulsatility. Elevated right h eart pressures are suspected. IMPRESSION: No evidence of left lower extremity DVT ACT 112: Negative or not required by law. Electronically signed by: Aman De Jesus M.D. 04/07/2019 5:29 PM
--- NOTE | 2019-04-07 17:37 | Ultrasound Report ---
US liver CLINICAL HISTORY: 78 years-old Female presenting with ?ascending cholangitis, ?stone, no MRCP d/t PM. TECHNIQUE: Real-time grayscale and limited color Doppler ultrasound imaging of the abdomen limited to the right upper quadrant was performed. COMPARISON: CT from 04/07/2019. FINDINGS: Pancreas: Visualized portions of the pancreatic body normal. Pancreatic head poorly visualized. Liver: Normal echogenicity and echotexture. The liver measures 17.9 cm in maximal sagittal dimension. No sonographic evidence of hepatic mass. Main portal vein patent with normal directional flow. Biliary: The presence of pneumobilia is better appreciated on CT. No intrahepatic biliary ductal dila tation. Common bile duct measures up to 8-12 mm in diameter. Hyperechogenic surrounding fat. Wall thi ckening of the common duct may be present. Gallbladder: Surgically absent. Right kidney: Cortical thinning suggested. No hydronephrosis. Ascites: None. Other: None. IMPRESSION: 1. Mild extrahepatic biliary ductal dilatation with wall thickening and infiltrated peribiliary fat strongly suggestive of ascending cholangitis. 2. No gross evidence of choledocholithiasis. 3. Status post cholecystectomy. ACT 112: Negative or not required by law. Electronically signed by: Grey London M.D. 04/07/2019 5:36 PM
[2019-04-07] MEDS: LACTATED RINGER'S 1,000 ML IV SCH (17:43)
[2019-04-07] MEDS: FAMOTIDINE 20 MG TAB PO SCH (20:43)
[2019-04-07] MEDS: GABAPENTIN 100 MG CAP PO SCH (20:44)
[2019-04-07] MEDS: ROPINIROLE HCL 1 MG TABLET PO SCH (20:44)
--- NOTE | 2019-04-07 21:48 | Electrocardiogram Report ---
Test Reason : Blood Pressure : / mmHG Vent. Rate : 090 BPM Atrial Rate : 108 BPM P-R Int : 000 ms QRS Dur : 094 ms QT Int : 296 ms P-R-T Axes : 000 -60 121 degrees QTc Int : 362 ms Poor data quality, interpretation may be adversely affected Atrial fibrillation Left anterior fascicular block Minimal voltage criteria for LVH, may be normal variant Poor R wave progression, consider anterior AR vs. lead placement vs. LVH Abnormal ECG When compared with ECG of 31-DEC-2018 06:27, Atrial fibrillation has replaced Sinus rhythm Confirmed by Malachi Thomson ([id number]) on 04/07/2019 9:48:00 PM Referred By: REFERRED SELF Confirmed By:Malachi Thomson
[2019-04-07 23:49] LABS: Appearance Urine Cloudy (Clear); Bacteria Urine Automated Negative (Negative); Blood Urine Negative (Negative); Color Urine Dark Yellow; Epithelial Cell Urine Auto 20-30 /lpf (0-5); Glucose Urine UA Negative (Negative); Ketones Urine Negative (Negative); Leukocyte Esterase Urine Negative (Negative); Nitrite Urine Negative (Negative); Protein Urine 1+ (Negative); Specific Gravity Urine 1.042 (1.000-1.030); Urobilinogen Urine Negative (Negative); pH Urine 5.5 (4.5-7.5)
[2019-04-08 00:13] LABS: Bilirubin Urine 1+ (Negative)
[2019-04-08 00:14] LABS: Ictotest Urine Positive (Negative)
[2019-04-08] MEDS: PIPERACILLIN/TAZOBACTAM 3.375 GM in DEXTROSE 5% 100 ML IV SCH ×3 (02:10→16:52)
[2019-04-08] MEDS: LACTATED RINGER'S 1,000 ML IV SCH (02:10)
[2019-04-08] MEDS: LEVOTHYROXINE SODIUM 125 MCG TABLET PO SCH (05:39)
[2019-04-08] MEDS ORDERED: INDOMETHACIN 50 MG SUPP PR PRN (06:00)
[2019-04-08 06:39] LABS: Hematocrit (blood only) 37.9 % (37-47); Hemoglobin 12.6 g/dL (12.0-16.0); Immature Granulocytes # (auto) 0.04 K/uL (0.00-0.02); Immature Granulocytes % (auto) 0.3 %; Lymphocytes # (auto) 0.67 K/uL (1.2-3.4); Lymphocytes % (auto) 4.4 %; Mean Corpuscular Hgb Conc 33.2 g/dL (32-36); Mean Corpuscular Volume 96.2 fL (80-100); Mean Platelet Volume 9.9 fL (7.4-10.4); Monocytes # (auto) 0.32 K/uL (0.11-0.59); Monocytes % (auto) 2.1 %; Neutrophils # (auto) 14.37 K/uL (1.4-6.5); Neutrophils % (auto) 93.2 %; Platelet Count 203 K/uL (130-400); RDW Coefficient of Variation 14.1 % (11.5-14.5); RDW Standard Deviation 50.2 fL (36.4-46.3); Red Blood Count 3.94 M/uL (4.2-5.4)
[2019-04-08 07:20] LABS: Albumin Level 2.8 gm/dl (3.4-5.0); BUN Creatinine Ratio 16.8 (10-20); Bilirubin Direct 1.6 mg/dl (0-0.2); Bilirubin,Total 2.7 mg/dl (0.2-1); Calcium 9.1 mg/dl (8.5-10.1); Creatinine Clr Calc Pharmacy 55.1 ml/min; Est GFR (African American) 66.4; Est GFR (Non-African American) 57.3; Potassium 3.7 mmol/L (3.5-5.1); Total Protein 6.9 gm/dl (6.4-8.2)
[2019-04-08] MEDS: POTASSIUM CHLORIDE 20 MEQ TABCR PO SCH (08:32)
[2019-04-08] MEDS: FAMOTIDINE 20 MG TAB PO SCH ×2 (08:32→20:50)
[2019-04-08] MEDS: METOPROLOL SUCC 50MG EXT REL TAB PO SCH (08:32)
[2019-04-08] MEDS: UMECLIDINIUM BROMIDE 62.5MCG/BLISTER 7 PUFFS/INHALER INH SCH (08:33)
[2019-04-08] MEDS: FLUTICASONE/VILANTEROL 100/25MCG 14 PUFFS/INHALER INH SCH (08:33)
[2019-04-08] MEDS ORDERED: NON-FORMULARY MEDICATION (Fluticasone-Umeclidin-Vilanter [Trelegy Ellipta] 1 PUFFS) INH SCH (09:00)
--- NOTE | 2019-04-08 12:37 | Anesthesiology Consultation ---
Date of Service April 08, 2019 Assessment & Plan (1) Encounter for pre-operative examination: Chart Review Chart Review: Acceptable Risk for Surgery and Patient NOT seen in Pre Admission Testing Consults Requested none History Surgery Operation Date: 04/08/19 10:20 Proposed Procedures p Endoscopic Retrograde Cholangiopancreatogram - Jarrett Rodrigues Height/Weight Height: 5 ft 6 in Weight: 93.8 kg Allergies Allergy/AdvReac Type Severity Reaction Status Date / Time No Known Drug Allergies Allergy Verified 04/07/19 11:41 Medications Home Medications Medication Instructions Recorded Confirmed Last Taken acetaminophen 500 mg tablet 500 mg PO Q4H PRN 12/03/18 04/07/19 04/06/19 19:00 1000 mg aspirin 81 mg tablet,delayed 81 mg PO QAM 12/03/18 04/07/19 04/06/19 release cholecalciferol (vitamin D3) 125 5,000 units PO QAM 12/03/18 04/07/19 04/06/19 mcg (5,000 unit) tablet furosemide 20 mg tablet 20 mg PO [id number]@0800 12/03/18 04/07/19 04/06/19 levalbuterol tartrate 45 2 puffs INH Q4H PRN gm 12/03/18 04/07/19 Unknown mcg/actuation aerosol inhaler metoprolol succinate 50 mg 50 mg PO QAM 12/03/18 04/07/19 04/06/19 tablet,extended release 24 hr potassium chloride 20 mEq 20 meq PO QAM 12/03/18 04/07/19 04/06/19 tablet,extended release(part/cryst) ropinirole 1 mg tablet 1 mg PO QPM tab 12/03/18 04/07/19 04/06/19 famotidine 20 mg tablet 20 mg PO BID 12/16/18 04/07/19 04/06/19 gabapentin 100 mg capsule 100 mg PO HS 12/16/18 04/07/19 04/06/19 polyethylene glycol 3350 [Miralax] 17 gm PO DAILY PRN #30 ea 01/02/19 04/07/19 Unknown Trelegy Ellipta 1 puffs INHALATION QAM 04/07/19 04/07/19 04/06/19 levothyroxine 125 mcg PO QAM 04/07/19 04/07/19 04/07/19 Active Medications Generic Name Dose Route Start Last Admin Trade Name Freq PRN Reason Stop Dose Admin Famotidine 20 mg 04/07/19 21:00 04/08/19 08:32 Pepcid PO 05/07/19 20:59 20 mg BID JENNIFER Administration Fluticasone/Vilanterol 1 puffs 04/08/19 09:00 04/08/19 08:33 Breo Ellipta 100/25 Mcg Inh INH 05/08/19 08:59 1 puffs DAILY JENNIFER Administration Gabapentin 100 mg 04/07/19 21:00 04/07/19 20:44 Neurontin PO 05/07/19 20:59 100 mg HS JENNIFER Administration Piperacillin Sod/Tazobactam 115 mls @ 28.75 mls/hr 04/07/19 16:00 04/08/19 08:37 Sod 3.375 gm/ Dextrose IV 04/17/19 15:59 28.8 mls/hr Q8H JENNIFER Administration Protocol Ioversol 119 ml 04/07/19 12:10 04/07/19 12:10 Optiray 320 125ml IV 04/11/19 12:09 119 ml ONCE PRN Administration Interaction Checking Levothyroxine Sodium 125 mcg 04/08/19 06:30 04/08/19 05:39 Synthroid PO 05/08/19 06:29 125 mcg DAILYBB JENNIFER Administration Metoprolol Succinate 50 mg 04/08/19 09:00 04/08/19 08:32 Toprol Xl PO 05/08/19 08:59 50 mg QAM JENNIFER Administration Potassium Chloride 20 meq 04/08/19 09:00 04/08/19 08:32 Klor-Con M20 PO 05/08/19 08:59 20 meq QAM JENNIFER Administration Ropinirole HCl 1 mg 04/07/19 21:00 04/07/19 20:44 Requip PO 05/07/19 20:59 1 mg QPM JENNIFER Administration Umeclidinium [place] 1 puffs 04/08/19 09:00 04/08/19 08:33 Incruse Ellipta INH 05/08/19 08:59 1 puffs DAILY JENNIFER Administration NPO Date Last Intake of Fluids: 04/08/19 Time Last Intake of Fluids: 08:40 Last Intake of Fluids Comment: sip water with meds Date Last Intake of Solids: 04/06/19 Time Last Intake of Solids: 20:00 Past Medical History Medical History (Updated 04/08/19 @ 12:58 by Nolan Richards MD) Atrial fibrillation (Chronic) Common bile duct (CBD) obstruction COPD (chronic obstructive pulmonary disease) GERD (gastroesophageal reflux disease) Hypertension (Chronic) Hypothyroidism associated with surgical procedure Obstructive sleep apnea Pacemaker (Chronic) Restless leg syndrome (Chronic) Past Family History Family History Other Cancer Past Surgical History Surgical History (Updated 04/08/19 @ 13:00 by Nolan Richards MD) History of ERCP 12/30/18 Grade 1 view Mac 3 blade S/P cholecystectomy (Resolved) S/P thyroidectomy (Resolved) Social History Smoking Status: Former smoker tobacco type: cigarettes Smoking cigarettes per day: 20 Do You Dip or Chew Tobacco: No Hx Alcohol Use: No Hx Substance Use: No Physical Exam Vital Signs Last Vital Signs Temp 36.3 C L 04/08/19 11:32 Pulse 63 04/08/19 11:32 Resp 18 04/08/19 11:32 BP 121/80 04/08/19 11:32 Pulse Ox 93 04/08/19 11:32 Testing Laboratory Results 04/08/19 05:54 04/08/19 05:54 PT 10.5 Seconds (9.0-12.0) 04/07/19 09:10 INR 1.0 (0.9-1.1) 04/07/19 09:10 APTT 21.2 Seconds (21.0-31.0) 04/07/19 09:10 Urine Color Dark Yellow 04/07/19 23:26 Urine Appearance Cloudy (Clear) A 04/07/19 23:26 Urine pH 5.5 (4.5-7.5) 04/07/19 23:26 Ur Specific [place] 1.042 (1.000-1.030) H 04/07/19 23:26 Urine Protein 1+ (Negative) H 04/07/19 23:26 Urine Glucose (UA) Negative (Negative) 04/07/19 23:26 Urine Ketones Negative (Negative) 04/07/19 23:26 Urine Nitrite Negative (Negative) 04/07/19 23:26 Ur Leukocyte Esterase Negative (Negative) 04/07/19 23:26 Urine WBC (Auto) 1-5 /hpf (0-5) 04/07/19 23:26 Urine RBC (Auto) 10-30 /hpf (0-4) H 04/07/19 23:26 U Hyaline Cast (Auto) 1-5 /lpf (0-5) 04/07/19 23:26 U Epithel Cells (Auto) 20-30 /lpf (0-5) H 04/07/19 23:26 Urine Bacteria (Auto) Negative (Negative) 04/07/19 23:26 04/07/19 09:10 Aerobic Blood Culture - Preliminary Blood No growth in Aerobic bottle after 24 hours. Anaerobic Blood Culture - Preliminary No growth in Anaerobic bottle after 24 hours. 04/07/19 10:21 Aerobic Blood Culture - Preliminary Blood No growth in Aerobic bottle after 24 hours. Anaerobic Blood Culture - Preliminary No growth in Anaerobic bottle after 24 hours. Electrocardiogram Date: 04/07/19 Findings: + AFIB @ (90), + LBBB (L anterior fascicle block) and + poor R wave progression Chest X-Ray Date: 04/07/19 XR chest 1V portable CLINICAL HISTORY: SEPSIS dyspnea COMPARISON STUDY: 01/02/2019 FINDINGS: Moderate stable cardiomegaly. Mild stable emphysematous change. Permanent bipolar cardiac pacemaker. Chronic pleural thickening right base laterally. Potential superimposed interstitial infiltrate left base. Pulmonary apices are clear. IMPRESSION: Chronic and postoperative change. Mild superimposed infiltrate left base. ACT 112: Negative or not required by law. The above report was generated using voice recognition software. It may contain grammatical, syntax or spelling errors. Electronically signed by: Gustavo Lamas M.D. 04/07/2019 9:48 AM Dictated: 04/07/19946 Transcribed: 04/07/19946 Echocardiogram Date: 12/30/18 EF: 60-65 LV Function: normal Other Findings: + atrial enlargement (dilated) Valvular Disease: + no significant valvular disease Elevated RVSP 40-50
--- NOTE | 2019-04-08 12:51 | Hospitalist Progress Note ---
Date of Service April 08, 2019 Assessment & Plan (1) Ascending cholangitis: CT a/p on 04/07 showed ascending cholangitis & peripancreatic inflammation. - GI consultation appreciated - Plan for ERCP today. - Continue gentle IVF - Continue Zosyn (2) Pancreatitis: Suspect acute pancreatitis[place] [address] [place] admission. - NPO for procedure - Zofran PRN - Morphine PRN - GI consultation as above - appreciated (3) Obstructive sleep apnea: Chronic. - Continue home CPAP qHS, 7cmH20 (4) COPD (chronic obstructive pulmonary disease): Chronic. No wheezing on exam today. No shortness of breath. - Continue Trelegy, Xopenex - Continue to monitor - Goal saturation 88 - 92% with supplemental O2 (5) GERD (gastroesophageal reflux disease): Chronic. Has been off PPI due to CKD. - Continue Pepcid (6) Hypothyroidism associated with surgical procedure: Chronic. TSH=1.32 in December - Continue Synthroid (7) CKD (chronic kidney disease) stage 3, GFR 30-59 ml/min: Baseline Cr ~1.0, eGFR ~60. - Presently at baseline after some mild IV fluids in the ED (8) Atrial fibrillation: Rate controlled on metoprolol. 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 - Continue metoprolol (9) Hypertension: Blood pressure well controlled today at 120/80. - Continue metoprolol (10) Restless leg syndrome: Chronic. Stable. - Continue ropinirole (11) Demand ischemia: Troponin was 0.02 in the ED, then up to 0.33 later in the day. No chest pain. No clear ischemic EKG changes. - Trend one more troponin, but in the absence of symptoms, would not treat as acute coronary event. (12) DVT prophylaxis: SCDs - Hold heparin until after procedure Admission and Anticipated Discharge Date Admission Date: April 07, 2019 Subjective Overall feels better today. No abdominal pain. Reports no fevers/chills, chest pain, shortness of breath, abdominal pain, nausea, or vomiting. Physical Exam Constitutional: WD/WN, vitals as above Eyes: EOM intact bilaterally; no conjunctival abnormality ENMT: external ear and nose normal, oropharynx normal Neck: trachea midline, no thyromegaly normal visual inspection Respiratory: normal respiratory effort, lungs clear to auscultation no respiratory distress Cardiovascular: RRR, no murmur, no edema Gastrointestinal (Abdomen): Inspection/Auscultation: abdomen normal to inspection; abdomen not distended Musculoskeletal: no cyanosis or clubbing, extremities motor strength 5/5 Skin: no rashes, warm and dry Neurologic: moves all extremities and awake Psychiatric: Orientation: alert, oriented to person and cooperative Results & Data ([facility]) Vital Signs (Past 12 Hours) Vital Signs Temp Pulse Pulse Resp BP BP Pulse Ox 04/08/19 11:32 36.3 C L 63 18 121/80 93 04/08/19 08:30 60 04/08/19 07:15 36.7 C 73 17 122/78 98 04/08/19 04:00 36.4 C L 74 20 121/76 98 PG Care Time/CCT Total # of Minutes Spent Total Time Spent with Patient: Total time spent is greater than 50% in coordination of care (as documented) at patient's floor/unit and/or counseling patient: Coding Level of Care Code 19258 Subseq Hosp Care Lvl 3 Diagnoses Ascending cholangitis K83.09 Pancreatitis K85.90 Obstructive sleep apnea G47.33 COPD (chronic obstructive pulmonary disease) J44.9 COPD type: unspecified COPD GERD (gastroesophageal reflux disease) K21.9 Esophagitis presence: esophagitis presence not specified 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 CKD (chronic kidney disease) stage 3, GFR 30-59 ml/min N18.3 Atrial fibrillation I48.0 Atrial fibrillation type: paroxysmal Hypertension I10 Hypertension type: essential hypertension Restless leg syndrome G25.81 Demand ischemia I24.8 DVT prophylaxis Z29.9 (1) COPD (chronic obstructive pulmonary disease) COPD type: unspecified COPD Qualified Code(s): J44.9 - Chronic obstructive pulmonary disease, unspecified (2) GERD (gastroesophageal reflux disease) Esophagitis presence: esophagitis presence not specified Qualified Code(s): K21.9 - Gastro-esophageal reflux disease without esophagitis (3) Atrial fibrillation Atrial fibrillation type: paroxysmal Qualified Code(s): I48.0 - Paroxysmal atrial fibrillation (4) Hypertension Hypertension type: essential hypertension Qualified Code(s): I10 - Essential (primary) hypertension
--- NOTE | 2019-04-08 14:03 | History & Physical Report ---
Date of Service April 08, 2019 History of Present Illness Chief Complaint: Pancreatitis, hx CBD stones Primary Care Provider: Lg Rodriguez For ERCP Allergies Allergy/AdvReac Type Severity Reaction Status Date / Time No Known Drug Allergies Allergy Verified 04/07/19 11:41 Home Medications Home Medications Medication Instructions Recorded Confirmed Type acetaminophen 500 mg tablet 500 mg PO Q4H PRN 12/03/18 04/07/19 History aspirin 81 mg tablet,delayed 81 mg PO QAM 12/03/18 04/07/19 History release cholecalciferol (vitamin D3) 125 5,000 units PO QAM 12/03/18 04/07/19 History mcg (5,000 unit) tablet furosemide 20 mg tablet 20 mg PO MOTUWETHFRSA@0800 12/03/18 04/07/19 History levalbuterol tartrate 45 2 puffs INH Q4H PRN gm 12/03/18 04/07/19 History mcg/actuation aerosol inhaler metoprolol succinate 50 mg 50 mg PO QAM 12/03/18 04/07/19 History tablet,extended release 24 hr potassium chloride 20 mEq 20 meq PO QAM 12/03/18 04/07/19 History tablet,extended release(part/cryst) ropinirole 1 mg tablet 1 mg PO QPM tab 12/03/18 04/07/19 History famotidine 20 mg tablet 20 mg PO BID 12/16/18 04/07/19 History gabapentin 100 mg capsule 100 mg PO HS 12/16/18 04/07/19 History polyethylene glycol 3350 [Miralax] 17 gm PO DAILY PRN #30 ea 01/02/19 04/07/19 Rx Trelegy Ellipta 1 puffs INHALATION QAM 04/07/19 04/07/19 History levothyroxine 125 mcg PO QAM 04/07/19 04/07/19 History Past Med/Surg History Medical History (Updated 04/08/19 @ 12:58 by Nolan Richards MD) Atrial fibrillation (Chronic) Common bile duct (CBD) obstruction COPD (chronic obstructive pulmonary disease) GERD (gastroesophageal reflux disease) Hypertension (Chronic) Hypothyroidism associated with surgical procedure Obstructive sleep apnea Pacemaker (Chronic) Restless leg syndrome (Chronic) Surgical History (Updated 04/08/19 @ 13:00 by Nolan Richards MD) History of ERCP 12/30/18 Grade 1 view Mac 3 blade S/P cholecystectomy (Resolved) S/P thyroidectomy (Resolved) Family History Other Cancer Social History Preferred Language: [place] Communication Ability: Effective Benefits Director Required: No Beliefs That Will Affect Care: None marital status: Current Living Situation: Alone current occupational status: retired Other Information That Helps Us Care for You: No Feels Safe at Home: Yes Safety Concerns: Feels Safe At This Time Smoking Status: Former smoker Tobacco Type: cigarettes ; Cigarettes Per Day: 20 ; Do You Dip or Chew Tobacco: No ; Second Hand Exposure: No ; Tobacco Cessation Education Requested by Patient: No Hx Alcohol Use: No Hx Substance Use: No Physical Exam Constitutional: + obese Respiratory: Auscultation: + diminished lung sounds Cardiovascular: Rate/Rhythm: + irregularly irregular Gastrointestinal (Abdomen): Percussion/Palpation: + abdomen tender Pacemaker Results & Data Vital Signs (Past 12 Hours) Vital Signs Temp Pulse Pulse Resp BP BP Pulse Ox 04/08/19 11:32 36.3 C L 63 18 121/80 93 04/08/19 08:30 60 04/08/19 07:15 36.7 C 73 17 122/78 98 04/08/19 04:00 36.4 C L 74 20 121/76 98 Code Status & VTE Plan VTE Prophylaxis Plan VTE Prophylaxis will be ordered: Yes
[2019-04-08] MEDS ORDERED: SODIUM CHLORIDE 0.9% 1000ML 1,000 ML IV SCH (14:15)
[2019-04-08] MEDS ORDERED: ONDANSETRON INJ 2 MG/ML 2 ML VIAL ONE (14:26)
[2019-04-08] MEDS ORDERED: LIDOCAINE HCL 2% 2 ML VIAL/AMP(20MG/ML) INFIL ONE (14:26)
[2019-04-08] MEDS ORDERED: DEXAMETHASONE SOD INJ 4 MG/ML VIAL ONE (14:26)
[2019-04-08] MEDS ORDERED: PROPOFOL IV EMULSION 10 MG/ML 20 ML VIAL IV ONE (14:26)
[2019-04-08] MEDS ORDERED: fentaNYL citrate 100 MCG/2 ML VIAL ONE (14:26)
[2019-04-08] MEDS ORDERED: SUCCINYLCHOLINE CHLORIDE 20 MG/ML 10 ML VIAL ONE (15:05)
--- NOTE | 2019-04-08 15:41 | GI REPORT ---
Patient Name: Marianne Zhang Procedure Date: 04/08/2019 2:41 PM Date of : 1940 Admit Type: Inpatient Age: 78 Gender: Female Attending MD: Jarrett Rodrigues MD Procedure: ERCP Providers: Jarrett Rodrigues MD Referring MD: Referred Self Indications: Acute pancreatitis Medicines: General Anesthesia Complications: No immediate complications. Estimated Blood Loss: Estimated blood loss: none. Procedure: Pre-Anesthesia Assessment: - Prior to the procedure, a History and Physical was performed, and patient medications, allergies and sensitivities were reviewed. The patient's tolerance of previous anesthesia was reviewed. - The risks and benefits of the procedure and the sedation options and risks were discussed with the patient. All questions were answered and informed consent was obtained. After obtaining informed consent, the scope was passed under direct vision. Throughout the procedure, the patient's blood pressure, pulse, and oxygen saturations were monitored continuously. The scope was introduced through the mouth, and advanced to the duodenum and used to inject contrast into the bile duct. The ERCP was somewhat difficult due to abnormal anatomy. The patient tolerated the procedure well. Findings: The scope was passed under direct vision through the upper GI tract. A large-mouthed and smaller diverticulum were found in the second portion of the duodenum. The bile duct was deeply cannulated with the short-nosed traction sphincterotome. Contrast was injected. I personally interpreted the bile duct images. Ductal flow of contrast was adequate. The middle third of the main bile duct contained filling defect(s) thought to be sludge. To discover objects, the biliary tree was swept with a 15 mm balloon starting at the middle third of the main bile duct. Pus was swept from the duct. Sludge was swept from the duct. Impression: - Duodenal diverticulum. - The examination was suspicious for sludge. - The biliary tree was swept and pus and sludge were found. Recommendation: - Return patient to [facility] for ongoing care. Jarrett Rodrigues M.D. Jarrett Rodrigues MD 04/08/2019 3:41:24 PM This report has been signed electronically. Note Initiated On: 04/08/2019 2:41 PM Number of Addenda: 0 I attest to the content of the Intraoperative Record and orders documented therein, exceptions below {[id number]}
[2019-04-08] MEDS ORDERED: fentaNYL citrate 100 MCG/2 ML VIAL IV PRN (16:00)
[2019-04-08] MEDS ORDERED: ATROPINE SULFATE 0.1 MG/ML 10ML SYR IV PRN (16:00)
[2019-04-08] MEDS ORDERED: ePHEDrine sulfate 50 MG/ML AMP IV PRN (16:00)
--- NOTE | 2019-04-08 16:04 | Fluoroscopy Report ---
INTRAOPERATIVE RADIOGRAPHS CLINICAL HISTORY: ERCP. Fluoroscopy time: 119 seconds. FINDINGS: 4 spot fluoroscopic views of the right upper quadrant from an ERCP procedure are presented. Initial image shows the endoscope projecting over the stomach with a catheter in the common bile adriana t. The common bile duct appears dilated. A sweep is performed. IMPRESSION: Intraoperative ERCP images as above. See operative report for detailed findings. Electronically signed by: Troy Platt M.D. 04/08/2019 4:03 PM
--- NOTE | 2019-04-08 16:05 | Progress Note ---
DATE: 04/08/2019 The patient underwent an ERCP today for pancreatitis and abnormal liver tests and a CT scan that suggested a possible common duct stone. Of note is that she did have multiple stones removed in January at [place] and the duct was felt to be cleaned out at the end of that procedure. Today, the patient was found to have multiple small bowel diverticula making it somewhat difficult to access the papilla, which was tucked under a fold and diverted to the side of the small bowel. Duct was cannulated and dilated and contrast was injected. There was a suggestion that there may be some sludge in the bile duct and there appeared to be some pus extruding from the orifice. The duct was dragged with an 8-15 mm balloon multiple times and there appeared to be some sludge and pus extracted, but no obvious stones. We did an occlusion cholangiogram at the end and there were no obvious stones remaining or sludge or pus. The patient tolerated the procedure well. She will be returned to the hospital floor for ongoing care.
--- NOTE | 2019-04-08 16:20 | Anesthesiology Progress Note ---
Date of Service April 08, 2019 Anesthesia Post Procedure Vital Signs Vital Signs: Temp Pulse Pulse Pulse Resp BP BP 04/08/19 16:15 63 24 119/90 04/08/19 16:05 64 24 140/64 04/08/19 15:55 64 24 125/63 04/08/19 15:48 36.7 C 73 20 145/73 H 04/08/19 14:13 36.4 C L 66 22 142/79 H 04/08/19 11:32 36.3 C L 63 18 121/80 04/08/19 08:30 60 04/08/19 07:15 36.7 C 73 17 122/78 04/08/19 04:00 36.4 C L 74 20 121/76 04/08/19 00:00 60 04/07/19 23:30 36.8 C 76 18 119/82 04/07/19 19:49 36.4 C L 78 18 112/65 Pulse Ox 04/08/19 16:15 97 04/08/19 16:05 100 04/08/19 15:55 100 04/08/19 15:48 100 04/08/19 14:13 99 04/08/19 11:32 93 04/08/19 08:30 04/08/19 07:15 98 04/08/19 04:00 98 04/08/19 00:00 04/07/19 23:30 99 04/07/19 19:49 95 Transfer of Care Handoff Completed per policy Notes Mental Status: alert / awake / arousable and participated in evaluation Patient Amnestic to Procedure: Yes Nausea / Vomiting: adequately controlled Pain: adequately controlled Airway Patency, RR, SpO2: stable & adequate BP & HR: stable & adequate Hydration State: stable & adequate Anesthetic Complications: no major complications apparent
[2019-04-08] MEDS: GABAPENTIN 100 MG CAP PO SCH (20:50)
[2019-04-08] MEDS: ROPINIROLE HCL 1 MG TABLET PO SCH (20:50)
[2019-04-09] MEDS: PIPERACILLIN/TAZOBACTAM 3.375 GM in DEXTROSE 5% 100 ML IV SCH ×2 (01:02→10:30)
[2019-04-09] MEDS: LEVOTHYROXINE SODIUM 125 MCG TABLET PO SCH (06:12)
--- NOTE | 2019-04-09 06:20 | Electrocardiogram Report ---
Test Reason : Blood Pressure : / mmHG Vent. Rate : 060 BPM Atrial Rate : 057 BPM P-R Int : 000 ms QRS Dur : 172 ms QT Int : 570 ms P-R-T Axes : 000 -74 148 degrees QTc Int : 570 ms Ventricular-paced rhythm with intrinsic complexes Abnormal ECG When compared with ECG of 07-APR-2019 09:04, Ventricular pacing is now present Vent. rate has decreased BY 30 BPM Confirmed by Malachi Thomson ([id number]) on 04/09/2019 6:19:31 AM Referred By: REFERRED SELF Confirmed By:Malachi Thomson
[2019-04-09 06:42] LABS: Hemoglobin 12.8 g/dL (12.0-16.0); Mean Corpuscular Hemoglobin 31.3 pg (25-34); Mean Corpuscular Volume 97.8 fL (80-100); Platelet Count 225 K/uL (130-400); RDW Coefficient of Variation 14.3 % (11.5-14.5); RDW Standard Deviation 50.9 fL (36.4-46.3); Red Blood Count 4.09 M/uL (4.2-5.4); White Blood Count 15.58 K/uL (4.8-10.8)
[2019-04-09 07:30] LABS: Albumin Globulin Ratio 0.7 (0.9-2); Albumin Level 2.8 gm/dl (3.4-5.0); BUN Creatinine Ratio 21.1 (10-20); Bilirubin,Total 0.9 mg/dl (0.2-1); Calcium 8.9 mg/dl (8.5-10.1); Creatinine Clr Calc Pharmacy 44.6 ml/min; Globulin 4.1 gm/dl (2.5-4.0); Magnesium 2.4 mg/dl (1.8-2.4); Phosphorus 2.7 mg/dl (2.5-4.9); Potassium 4.3 mmol/L (3.5-5.1); Total Protein 6.9 gm/dl (6.4-8.2)
[2019-04-09] MEDS: FLUTICASONE/VILANTEROL 100/25MCG 14 PUFFS/INHALER INH SCH (10:25)
[2019-04-09] MEDS: METOPROLOL SUCC 50MG EXT REL TAB PO SCH (10:25)
[2019-04-09] MEDS: UMECLIDINIUM BROMIDE 62.5MCG/BLISTER 7 PUFFS/INHALER INH SCH (10:25)
[2019-04-09] MEDS: POTASSIUM CHLORIDE 20 MEQ TABCR PO SCH (10:26)
[2019-04-09] MEDS: FAMOTIDINE 20 MG TAB PO SCH (10:26)
--- NOTE | 2019-04-09 14:41 | Progress Note ---
DATE: 04/09/2019 The patient underwent an ERCP yesterday for clearing sludge and pus from her bile duct. Today, she remains afebrile with a temperature of 36.5, blood pressure is 119/77, pulse 64. She is reporting no abdominal pain and is eating a heart healthy low fat diet without difficulty. Her white count is still slightly elevated at 15.58. Liver tests are improving. Bilirubin is down to normal at 0.9. ALT, AST and alkaline phosphatase are all decreasing. IMPRESSION: The patient had apparently cholangitis and acute pancreatitis which is significantly improving. The plan is to treat her for an additional 5 days with p.o. Augmentin and have her keep Cipro on hand at home should she have any recurrent attacks. Plan is for discharge later today according to the hospitalist and the patient will be followed up as needed as an outpatient.
--- NOTE | 2019-04-09 16:13 | Discharge Summary ---
Date of Service April 09, 2019 Admission HPI Per Admitting Provider For ERCP Principal Diagnosis Ascending cholangitis Discharge Exam Constitutional WD/WN, vitals as above Eyes EOM intact bilaterally; no conjunctival abnormality ENMT external ear and nose normal, oropharynx normal Neck trachea midline, no thyromegaly normal visual inspection Respiratory normal respiratory effort, lungs clear to auscultation no respiratory distress Cardiovascular RRR, no murmur, no edema Gastrointestinal (Abdomen) Inspection/Auscultation: abdomen normal to inspection; abdomen not distended Musculoskeletal no cyanosis or clubbing, extremities motor strength 5/5 Skin no rashes, warm and dry Neurologic moves all extremities and awake Psychiatric Orientation: alert, oriented to person and cooperative Discharge Data Allergies Allergy/AdvReac Type Severity Reaction Status Date / Time No Known Drug Allergies Allergy Verified 04/07/19 11:41 Consultations 04/07/19 11:31 ED Decision to Admit Stat 04/07/19 14:26 Consult Gastroenterology Stat Procedures Performed Operation Date: 04/08/19 10:20 Actual Procedures p Endoscopic Retrograde Cholangiopancreatogram(Not Applicable) - Jarrett Rodrigues Ordered Studies 04/07/19 11:27 CT abd pelvis IV con only Stat CT angio chest PE protocol Stat 04/07/19 16:00 US venous doppler LE LT Routine 04/07/19 16:30 US liver Stat 04/08/19 14:30 FL ERCP biliary ductal Routine Hospital Course (1) Ascending cholangitis: CT a/p on 04/07 showed ascending cholangitis & peripancreatic inflammation. - GI consulted - Underwent ERCP on 04/08 with sludge and pus found in the common bile duct. Patient did very well after procedure with no further fevers. WBC coming down from presentation. - In discussion with GI, she was discharged on 5 additional days of Augmentin. She was also given a reserve script in case she develops fevers or RUQ pain the future. She should start the antibiotic and contact her GI office immediately. - Finally, she was given some recommendations to reduce gallbladder sludge as we did not find any actual stone in the bile duct with this procedure. These included vitamin C, coffee, polyunsaturated fats, and exercise. (2) Pancreatitis: Acute pancreatitis due to CBD blockage from sludge and ascending cholangitis. On discharge, she was pain free and eating food. (3) COPD (chronic obstructive pulmonary disease): Chronic. No wheezing on exam today. No shortness of breath. - Continue Trelegy, Xopenex - On discharge, she was at least 95% on room air during my exam. She dropped to ~87-88% on exertion, but only felt mildly short of breath. From my review of data, there is no mortality or morbidity benefit to O2 if resting O2 sat is >90%. She did not want O2 in any event due to inconvenience, so she was discharged with outpatient follow up. (4) Demand ischemia: Troponin was 0.02 in the ED, then up to 0.33 later in the day. No chest pain. No clear ischemic EKG changes. - Last troponin was 0.12. - Outpatient follow up with Dr. Grant. (5) Shortness of breath: There was some concern about acute CHF exacerbation on presentation; however, I do not think she had any CHF. She has no history of CHF in any notes including cardiology notes. Her shortness of breath was likely due to sepsis and metabolic acidosis. Again, I do not think she had volume overload or acute exacerbation of CHF. - Outpatient cardiology follow up (6) Obstructive sleep apnea: Chronic. - Continue home CPAP qHS, 7cmH20 (7) GERD (gastroesophageal reflux disease): Chronic. Has been off PPI due to CKD. - Continue Pepcid (8) Hypothyroidism associated with surgical procedure: Chronic. TSH=1.32 in December - Continue Synthroid (9) CKD (chronic kidney disease) stage 3, GFR 30-59 ml/min: Baseline Cr ~1.0, eGFR ~60. - At baseline at discharge. (10) Atrial fibrillation: Rate controlled on metoprolol. 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 - Continue metoprolol (11) Hypertension: Blood pressure well controlled today at 120/80. - Continue metoprolol (12) Restless leg syndrome: Chronic. Stable. - Continue ropinirole (13) DVT prophylaxis: SCDs - Hold heparin until after procedure Total Time Total Time Spent Total Time Spent (In Minutes): 35 Discharge Plan Discharge Items Patient Disposition: Home - Home Health Services Reason For Visit: HYPOXIC RESPIRATORY FAILURE Discharge Diagnosis: Ascending cholangitis - i.e. infection in the bile ducts Activity: Resume your previous activity Non-emergency contact: Primary Care Provider and Polls Or Surveys Interviewer Call non-emergency contact if: your symptoms worsen and your temperature is above 101 Follow-up/Referrals: Sherwin Aponte [Physician] - (Please follow up with Dr. Aponte or Dr. Rodrigues in 2 weeks.) Lg Rodriguez MD [Primary Care Provider] - 04/28/19 2:00 pm (IF YOU CAN NOT MAKE THIS APT DAY OR TIME, PLEASE CALL THE OFFICE AND RESCHEDULE.) Diet: Heart Healthy Addtl Attending Provider Instructions: You were admitted to the hospital with an infection in the bile duct system called "cholangitis." We started you on antibiotics and you improved, and then Dr. Rodrigues of the GI team got some sludge and pus out of the bile duct system which also helped you feel better. Please take the antibiotics we prescribed for 5 more days. This will help you fully get rid of the infection. Frustratingly, we did not even see any stones in the bile duct, it was just sludge. There are some somewhat speculative measure to help thin your bile acids which will hopefully prevent sludge from building up and hopefully help prevent this from happening again: 1) Take a Vitamin C supplement. This has been shown in some observational studies to lower the risk of gallstones and thin gallbladder secretions. I believe 250 mg per day should be adequate. 2) Eat poly- and monounsaturated fats and nuts - This may lower the risk slightly as well. This includes nuts and vegetable oils, tofu, soybeans, etc. 3) Drink coffee - This should be without creamer as this can increase the fats. One to several cups a day is ok. 4) Exercise Hopefully all these measures help prevent this from coming back. If it does come back, please start the Cipro tablets we sent to your pharmacy and call the GI doctor's office right away. Pending Studies at Discharge: No Stand-Alone Forms: [facility], Smoking Cessation Medications and DC Order Prescriptions: New amoxicillin-pot clavulanate [Augmentin] 875-125 mg tablet 1 tab PO BID Qty: 11 RF: 0 ciprofloxacin HCl 500 mg tablet 500 mg PO BID Qty: 5 RF: 0 ascorbic acid (vitamin C) [Vitamin C] 250 mg tablet 250 mg PO DAILY Qty: 30 RF: 0 Continued acetaminophen 500 mg tablet 500 mg PO Q4H PRN (Reason: Pain) RF: 0 aspirin 81 mg tablet,delayed release (DR/EC) 81 mg PO QAM RF: 0 metoprolol succinate 50 mg tablet extended release 24 hr 50 mg PO QAM RF: 0 potassium chloride 20 mEq tablet,ER particles/crystals 20 meq PO QAM RF: 0 ropinirole 1 mg tablet 1 mg PO QPM RF: 0 cholecalciferol (vitamin D3) 5,000 unit tablet 5,000 units PO QAM RF: 0 levalbuterol tartrate [Xopenex HFA] 45 mcg/actuation HFA aerosol inhaler 2 puffs INH Q4H PRN (Reason: Shortness Of Breath) RF: 0 furosemide 20 mg tablet 20 mg PO MOTUWETHFRSA@0800 RF: 0 famotidine 20 mg tablet 20 mg PO BID RF: 0 gabapentin 100 mg capsule 100 mg PO HS RF: 0 polyethylene glycol 3350 [Miralax] 17 gram powder in packet 17 gm PO DAILY PRN (Reason: constipation) Qty: 30 RF: 0 Trelegy Ellipta 100-62.5-25 mcg blister with device 1 puffs inhalation QAM RF: 0 levothyroxine 125 mcg Tablet 125 mcg PO QAM RF: 0 Discharge Orders: Discharge Order (Routine); Ordered 04/09/19 Ordered By: aMrk Ernandez Admission Data Admit Date/Time: 04/07/19 12:46 Attending Provider: Mark Ernandez Admit Provider: Amy Luther Primary Care Provider: Lg Rodriguez Other Providers: Mark Ernandez ; Amy Luther ; Jarrett Rodrigues ; [facility] Other Interventions: Discharge Summary Assessment (RN) Last Done: 04/09/19 14:49 Coding Level of Care Code D/C Day Management >30 mins Diagnoses Ascending cholangitis K83.09 Pancreatitis K85.90 COPD (chronic obstructive pulmonary disease) J44.9 COPD type: unspecified COPD Demand ischemia I24.8 Shortness of breath R06.02 Obstructive sleep apnea G47.33 GERD (gastroesophageal reflux disease) K21.9 Esophagitis presence: esophagitis presence not specified 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 CKD (chronic kidney disease) stage 3, GFR 30-59 ml/min N18.3 Atrial fibrillation I48.0 Atrial fibrillation type: paroxysmal Hypertension I10 Hypertension type: essential hypertension Restless leg syndrome G25.81 DVT prophylaxis Z29.9
== END 2019-04-09 17:03 | disposition home health service (06) | DRG 871 ==
LOC: ED 08:56 → SUATTDRO 12:46 → 2S 12:46

== ENCOUNTER 2019-11-10 19:23 | Observation (INO) ==
[2019-11-10] MEDS ORDERED: SODIUM CHLORIDE 0.9% 1000ML 1,000 ML IV STA (20:01)
[2019-11-10] MEDS ORDERED: SODIUM CHLORIDE 0.9% 1000ML 250 ML IV ONE (20:01)
--- NOTE | 2019-11-10 20:25 | XRay Report ---
XR chest 1V portable CLINICAL HISTORY: SEPSIS COMPARISON STUDY: March 2019 FINDINGS: The heart is enlarged. 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 Th ere is radiographic evidence of mild pulmonary vascular congestion/fluid overload. There is chronic r ight-sided pleural thickening. There is no lobar consolidation.[ IMPRESSION: 1. Cardiomegaly and radiographic evidence of mild chronic pulmonary vascular congestion/fluid overloa d. Stable right-sided pleural thickening. 2. No evidence of acute parenchymal consolidation ACT 112: Negative or not required by law. Electronically signed by: Aman De Jesus M.D. 11/10/2019 8:24 PM
[2019-11-10 21:02] LABS: Basophils # (auto) 0.03 K/uL (0-0.2); Basophils % (auto) 0.2 %; Eosinophils # (auto) 0.07 K/uL (0-0.5); Eosinophils % (auto) 0.5 %; Hematocrit (blood only) 42.8 % (37-47); Hemoglobin 14.3 g/dL (12.0-16.0); Immature Granulocytes # (auto) 0.03 K/uL (0.00-0.02); Immature Granulocytes % (auto) 0.2 %; Lymphocytes # (auto) 0.89 K/uL (1.2-3.4); Lymphocytes % (auto) 6.7 %; Mean Corpuscular Hemoglobin 32.8 pg (25-34); Mean Corpuscular Hgb Conc 33.4 g/dL (32-36); Mean Corpuscular Volume 98.2 fL (80-100); Mean Platelet Volume 9.7 fL (7.4-10.4); Monocytes % (auto) 8.2 %; Neutrophils # (auto) 11.25 K/uL (1.4-6.5); Neutrophils % (auto) 84.2 %; Platelet Count 302 K/uL (130-400); RDW Standard Deviation 46.8 fL (36.4-46.3); Red Blood Count 4.36 M/uL (4.2-5.4); White Blood Count 13.37 K/uL (4.8-10.8)
[2019-11-10 21:14] LABS: Partial Thromboplastin Time 27.6 Seconds (21.0-31.0)
[2019-11-10 21:19] LABS: Alanine Aminotransferase 27 U/L (12-78); Albumin Level 3.6 gm/dl (3.4-5.0); Aspartate Aminotransferase 35 U/L (15-37); BUN Creatinine Ratio 13.7 (10-20); Blood Urea Nitrogen 17 mg/dl (7-18); Calcium 9.5 mg/dl (8.5-10.1); Carbon Dioxide 25 mmol/L (21-32); Chloride 102 mmol/L (98-107); Creatinine Clr Calc Pharmacy 42.9 ml/min; Est GFR (African American) 48.1; Est GFR (Non-African American) 41.5; Glucose 108 mg/dl (70-99); Lipase 50 U/L (73-393); Magnesium 2.1 mg/dl (1.8-2.4); Potassium 3.8 mmol/L (3.5-5.1); Sodium 138 mmol/L (136-145)
[2019-11-10 21:23] LABS: Albumin Globulin Ratio 0.8 (0.9-2); Alkaline Phosphatase 180 U/L (45-117); Bilirubin,Total 1.6 mg/dl (0.2-1); Globulin 4.4 gm/dl (2.5-4.0); Troponin I < 0.015 ng/ml (0-0.045)
[2019-11-10 22:40] LABS: Appearance Urine Clear (Clear); Bacteria Urine Automated Negative (Negative); Bilirubin Urine Negative (Negative); Blood Urine Negative (Negative); Color Urine Yellow; Epithelial Cell Urine Auto >30 /lpf (0-5); Glucose Urine UA Negative (Negative); Ketones Urine Negative (Negative); Leukocyte Esterase Urine Trace (Negative); Nitrite Urine Negative (Negative); Protein Urine Negative (Negative); RBC Urine Automated 0-4 /hpf (0-4); Urobilinogen Urine Positive (Negative); WBC Urine Automated 0 /hpf (0-5); pH Urine 6.5 (4.5-7.5)
[2019-11-10] MEDS ORDERED: IOVERSOL 100ml IV ONE (23:36)
[2019-11-11] MEDS ORDERED: PIPERACILL/TAZOBAC CONSULT ACTIVE PRN ×2 (01:14→04:51)
[2019-11-11] MEDS ORDERED: PIPERACILLIN/TAZOBACTAM 4.5 GM/120 ML BAG IV ONE (01:14)
--- NOTE | 2019-11-11 02:18 | History & Physical Report ---
Date of Service November 11, 2019 Assessment & Plan (1) Abdominal pain: 79-year-old female with past medical history A. fib, COPD, GERD, hypertension, [place], RLS presents with concerns of shortness of breath and abdominal pain. Abdominal Pain -WBC 13.37, T bili 1.6, pro-Jered 1.46. LA 1.0 WNL, Lipase 50 not elevated, LFTs WNL. Will repeat CBC, CMP, LA in AM to trend Suspect secondary to ascending cholangitis Abdomen pelvis CT ([facility]): Question cirrhotic liver morphology. Intrahepatic pneumobilia. Areas of irregular low-density involving the right hepatic dome lesion may represent scarring. No appendicitis, colitis, diverticulitis or bowel obstruction. Distal colonic diverticulosis. No adnexal masses, free air or free fluid. We will order right upper quadrant ultrasound IV Zosyn 3.375 mg every 8 hour Blood cultures pending Appreciate GI consult, patient has followed with GI in the past. ERCP on 04/08 with sludge and pus found in the common bile duct SOB Chest x-ray: Cardiomegaly and radiographic evidence of mild chronic pulmonary vascular congestion/fluid overload. Stable right-sided pleural thickening. No evidence of acute parenchymal consolidation Patient with history of COPD, [place], ?CHF (per pt although there is no history of CHF and any notes including cardiology notes) Supplemental O2 as needed to maintain saturations. Patient with no home O2 requirements Continue home COPD medications, but doubt this is an exacerbation We will continue with patient's home p.o. furosemide 20 mg regimen. We will hold off on IV as patient can possibly be heading towards a septic picture -COVID negative COPD -Continue Trelegy, Xopenex [place] -Continue CPAP qHS, 7cmH20 GERD -Continue Pepcid Hypothyroidism -TSH=1.32 in December. 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 fib, COPD, GERD, hypertension, [place], RLS presents with concerns of shortness of breath and abdominal pain. Patient was resting earlier this afternoon and experienced shortness of breath that came on all of a sudden and lasted for about 30 minutes after which patient felt better. Patient states that she has a history of CHF (although there is no history of CHF and any notes including cardiology notes) and that this feels similar to exacerbation she had 4 years ago. Patient also notes her abdominal pain that feels similar to what she had last March. Pt with long history of pancreatitis, retained gallstones and recently within the last year required transfer to [facility] for ERCP. Patient additionally states that she had a fever at about 7 PM 102 F, which prompted ER visit. Associated chills, edema in legs. Patient otherwise denies any nausea, vomiting, diarrhea, diaphoresis, chest pain, cough, rhinorrhea, urinary symptoms, known sick contacts or recent travel anywhere. Patient with no other acute concerns or complaints. Pertinent labs: WBC 13.37, creatinine 1.22, T bili 1.6, alk phos 180 pro-Jered 1.46, COVID negative. LA 1.0 WNL, Lipase 50 not elevated, LFTs WNL Chest x-ray: Cardiomegaly and radiographic evidence of mild chronic pulmonary vascular congestion/fluid overload. Stable right-sided pleural thickening. No evidence of acute parenchymal consolidation Abdomen pelvis CT ([facility]): Question cirrhotic liver morphology. Intrahepatic pneumobilia. Areas of irregular low-density involving the right hepatic dome lesion may represent scarring. No appendicitis, colitis, diverticulitis or bowel obstruction. Distal colonic diverticulosis. No adnexal masses, free air or free fluid. ER course: IV Zosyn 4.5 mg, NSS Abd Surgical history: Cholecystectomy Allergies Allergy/AdvReac Type Severity Reaction Status Date / Time No Known Drug Allergies Allergy Unknown Verified 11/11/19 01:41 Home Medications Home Medications Medication Instructions Recorded Confirmed Type acetaminophen 500 mg tablet 500 mg PO Q4H PRN 12/03/18 11/11/19 History aspirin 81 mg tablet,delayed 81 mg PO QAM 12/03/18 11/11/19 History release furosemide 20 mg tablet 20 mg PO MOTUWETHFRSA@0800 12/03/18 11/11/19 History metoprolol succinate 50 mg 50 mg PO QAM 12/03/18 11/11/19 History tablet,extended release 24 hr potassium chloride 20 mEq 20 meq PO QAM 12/03/18 11/11/19 History tablet,extended release(part/cryst) ropinirole 1 mg tablet 1 mg PO QPM tab 12/03/18 11/11/19 History famotidine 20 mg tablet 20 mg PO BID 12/16/18 11/11/19 History gabapentin 100 mg capsule 100 mg PO HS 12/16/18 11/11/19 History polyethylene glycol 3350 [Miralax] 17 gm PO DAILY PRN #30 ea 01/02/19 11/11/19 Rx levothyroxine 125 mcg PO QAM 04/07/19 11/11/19 History ascorbic acid (vitamin C) [Vitamin 250 mg PO DAILY #30 tab 04/09/19 11/11/19 Rx C] fluticasone fur. 100 mcg-umeclid 1 puffs INHALATION QAM #60 ea 06/17/19 11/11/19 Rx 62.5 mcg-vilant 25 mcg inhalat.powder levalbuterol tartrate 45 2 puffs INH Q4H PRN #15 gm 06/17/19 11/11/19 Rx mcg/actuation aerosol inhaler cholecalciferol (vitamin D3) 50 mcg PO DAILY 11/11/19 11/11/19 History [Vitamin D3] ursodiol 300 mg PO BID 11/11/19 11/11/19 History Past Med/Surg History Medical History Atrial fibrillation Common bile duct (CBD) obstruction COPD (chronic obstructive pulmonary disease) GERD (gastroesophageal reflux disease) Hypertension Hypothyroidism associated with surgical procedure Obstructive sleep apnea Pacemaker Pulmonary emphysema Restless leg syndrome Solitary lung nodule Surgical History History of ERCP 12/30/18 Grade 1 view Mac 3 blade S/P cholecystectomy S/P thyroidectomy Family History Other Cancer Social History Smoking Status: Former smoker Tobacco Type: Cigarettes Cigarettes Per Day: 20; Second Hand Exposure: No; Hx Alcohol Use: No Hx Substance Use: No Preferred Language: [place] Communication Ability: Effective [employer]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 Beliefs That Will Affect Care: None marital status: Current Living Situation: Alone current occupational status: retired Feels Safe at Home: Yes Assistive Devices: Denture - Upper and Walker Review of Systems Review of Systems: All systems reviewed & are unremarkable except as noted in HPI & below Physical Exam Constitutional: + ill appearing Eyes: PERRL, conjunctivae normal, anicteric sclerae ENMT: Nose: + dry nasal mucous membranes Respiratory: normal respiratory effort; no respiratory distress and no labored breathing Auscultation: + crackles (Bases bilaterally) Cardiovascular: RRR, no murmur, no edema Chest (Breasts): Chest: + pacemaker Gastrointestinal (Abdomen): Percussion/Palpation: + abdomen tender (Right upper quadrant extending medially); no guarding neg mittal's Skin: no rashes, warm and dry Psychiatric: A+Ox3, euthymic affect Results & Data Results & Data ([facility]) Vital Signs (Past 12 Hours) Vital Signs Temp Pulse Resp BP Pulse Ox 11/11/19 02:01 70 25 H 92 11/11/19 02:00 70 24 144/74 H 91 11/11/19 01:31 65 27 H 119/44 L 93 11/11/19 01:30 67 29 H 93 11/11/19 01:00 62 24 120/60 91 11/11/19 00:54 85 24 144/55 H 93 11/11/19 00:52 67 30 H 144/55 H 93 11/11/19 00:30 66 28 H 92/61 L 91 11/11/19 00:01 66 28 H 92 11/11/19 00:00 62 29 H 135/56 L 93 11/10/19 23:46 81 30 H 92 11/10/19 23:45 89 31 H 147/84 H 91 11/10/19 23:43 71 26 H 11/10/19 23:30 137/80 11/10/19 23:18 37.3 C 11/10/19 23:01 66 24 99 11/10/19 23:00 66 30 H 136/68 99 11/10/19 22:31 70 26 H 99 11/10/19 22:30 65 31 H 129/61 99 11/10/19 22:01 66 26 H 96 11/10/19 22:00 63 27 H 126/70 97 09/22/20 21:31 70 21 97 11/10/19 21:30 63 25 H 131/61 97 11/10/19 21:01 69 23 97 11/10/19 21:00 69 22 132/65 96 11/10/19 20:37 96 11/10/19 20:31 80 32 H 95 11/10/19 20:30 81 29 H 143/74 H 96 11/10/19 20:01 76 29 H 96 11/10/19 20:00 81 20 147/86 H 95 11/10/19 19:39 73 24 96 11/10/19 19:35 74 25 H 137/70 96 11/10/19 19:30 37.8 C H 82 20 137/70 90 Laboratory Results Laboratory Results - last 24 hr 11/10/19 11/10/19 11/10/19 20:36 20:36 20:41 WBC RBC Hgb Hct MCV MCH MCHC RDW Std Deviation RDW Coeff of Agusto Plt Count MPV Immature Gran % (Auto) Neut % (Auto) Lymph % (Auto) [place] % (Auto) Eos % (Auto) Baso % (Auto) Neut # (Auto) Lymph # (Auto) [place] # (Auto) Eos # (Auto) Baso # (Auto) Immature Gran # (Auto) PT INR APTT PTT Ratio Sodium Potassium Chloride Carbon Dioxide Anion Gap BUN Creatinine Est Cr Clr Drug Dosing Est GFR ( Amer) Est GFR (Non-Af Amer) BUN/Creatinine Ratio Glucose Lactate Calcium Magnesium Total Bilirubin AST ALT Alkaline Phosphatase Troponin I Total Protein Albumin Globulin Albumin/Globulin Ratio Lipase Procalcitonin 1.46 H Urine Color Urine Appearance Urine pH Ur Specific [place] Urine Protein Urine Glucose (UA) Urine Ketones Urine Blood Urine Nitrite Urine Bilirubin Urine Urobilinogen Ur Leukocyte Esterase Urine WBC (Auto) Urine RBC (Auto) U Hyaline Cast (Auto) U Epithel Cells (Auto) Urine Bacteria (Auto) COVID-19 Eval Order Covid[address] [facility] COVID-19 PCR NEGATIVE 11/10/19 11/10/19 11/10/19 20:41 20:41 20:41 WBC 13.37 H RBC 4.36 Hgb 14.3 Hct 42.8 MCV 98.2 MCH 32.8 MCHC 33.4 RDW Std Deviation 46.8 H RDW Coeff of Agusto 13.0 Plt Count 302 MPV 9.7 Immature Gran % (Auto) 0.2 Neut % (Auto) 84.2 Lymph % (Auto) 6.7 [place] % (Auto) 8.2 Eos % (Auto) 0.5 Baso % (Auto) 0.2 Neut # (Auto) 11.25 H Lymph # (Auto) 0.89 L [place] # (Auto) 1.10 H Eos # (Auto) 0.07 Baso # (Auto) 0.03 Immature Gran # (Auto) 0.03 H PT 11.0 INR 1.0 APTT 27.6 PTT Ratio 1.0 Sodium 138 Potassium 3.8 Chloride 102 Carbon Dioxide 25 Anion Gap 11.0 BUN 17 Creatinine 1.22 H Est Cr Clr Drug Dosing 42.9 Est GFR ( Amer) 48.1 Est GFR (Non-Af Amer) 41.5 BUN/Creatinine Ratio 13.7 Glucose 108 H Lactate Calcium 9.5 Magnesium 2.1 Total Bilirubin 1.6 H AST 35 ALT 27 Alkaline Phosphatase 180 H Troponin I < 0.015 Total Protein 8.0 Albumin 3.6 Globulin 4.4 H Albumin/Globulin Ratio 0.8 L Lipase 50 L Procalcitonin Urine Color Urine Appearance Urine pH Ur Specific [place] Urine Protein Urine Glucose (UA) Urine Ketones Urine Blood Urine Nitrite Urine Bilirubin Urine Urobilinogen Ur Leukocyte Esterase Urine WBC (Auto) Urine RBC (Auto) U Hyaline Cast (Auto) U Epithel Cells (Auto) Urine Bacteria (Auto) COVID-19 Eval Order COVID-19 PCR 11/10/19 11/10/19 20:41 22:22 WBC RBC Hgb Hct MCV MCH MCHC RDW Std Deviation RDW Coeff of Agusto Plt Count MPV Immature Gran % (Auto) Neut % (Auto) Lymph % (Auto) [place] % (Auto) Eos % (Auto) Baso % (Auto) Neut # (Auto) Lymph # (Auto) [place] # (Auto) Eos # (Auto) Baso # (Auto) Immature Gran # (Auto) PT INR APTT PTT Ratio Sodium Potassium Chloride Carbon Dioxide Anion Gap BUN Creatinine Est Cr Clr Drug Dosing Est GFR ( Amer) Est GFR (Non-Af Amer) BUN/Creatinine Ratio Glucose Lactate 1.0 Calcium Magnesium Total Bilirubin AST ALT Alkaline Phosphatase Troponin I Total Protein Albumin Globulin Albumin/Globulin Ratio Lipase Procalcitonin Urine Color Yellow Urine Appearance Clear Urine pH 6.5 Ur Specific [place] 1.010 Urine Protein Negative Urine Glucose (UA) Negative Urine Ketones Negative Urine Blood Negative Urine Nitrite Negative Urine Bilirubin Negative Urine Urobilinogen Positive H Ur Leukocyte Esterase Trace H Urine WBC (Auto) 0 Urine RBC (Auto) 0-4 U Hyaline Cast (Auto) 1-5 U Epithel Cells (Auto) >30 H Urine Bacteria (Auto) Negative COVID-19 Eval Order COVID-19 PCR Medications Administered Current Inpatient Medications Sodium Chloride (Nss 1000ml) 1,000 mls @ 125 mls/hr IV .Q8H STA Stop: 11/11/19 04:00 Last Admin: 11/10/19 20:58 Dose: 125 mls/hr Documented by: Miscellaneous Information ([place] Consult Active) 1 ea N/A UD PRN PRN Reason: Consult Stop: 12/11/19 01:13 Code Status & VTE Plan Code Status DNR/DNI Supervising Physician Co-Signing Physician Notes Patient seen and examined, chart reviewed, case discussed with Dr. Martinez and I agree with his assessment and plan as documented above. Briefly, patient is an 79yo female presenting with fever/chills/abdominal pain, also with SOB. Recent history of cholangitis s/p ERCP. On exam patient is afebrile, hypertensive, NAD, resting comfortably HEENT - Dry mm, neck supple Heart - +S1/S2, regular with ectopy, no m/r/g Lungs - CTA Abd - +BS, soft, tender in mid epigastric region and slightly in RUQ, negative Mittal's Ext - no edema Labs and images reviewed. Assessment/Plan - 79yo C female with fever/chills/abdominal pain. Concern for developing cholangitis -Admit to medical floor -Check liver US to start, may need MRCP/ERCP -GI consultation appreciated. Will keep patient NPO for now for possible intervention -Zosyn -Follow cultures -Repeat labs -Remainder of plan as above Resident Activity Tracking Resident Involvement: Resident Care Provided Care Provided: Adult Hospital Medicine
--- NOTE | 2019-11-11 02:51 | Emergency Department Note ---
History of Present Illness General Chief complaint: Shortness of Breath/Dyspnea Time Seen by Provider: 11/10/19 19:52 Source: patient and EMS Mode of arrival: ambulatory Limitations: no limitations History of Present Illness Provider complaint: Shortness of breath right This patient is an 79-year-old female who presents the emergency department with complaints of shortness of breath. Patient states she is also having some upper abdominal cramping. She has a long history of pancreatitis, retained gallstones and recently within the last year required transfer to [facility] for ERCP and "removal of a very large stone." Patient denies any known fevers at home but states she has had body aches and chills. She lives in an apartment by herself however it is a high rise for elderly people. She admits to a long history of smoking but quit 4 years ago. She denies any vomiting or diarrhea. She denies any chest pain or significant cough recently. She has no known COVID positive contacts. Home Medications Home Medications Medication Instructions Recorded Confirmed Type acetaminophen 500 mg tablet 500 mg PO Q4H PRN 12/03/18 11/11/19 History aspirin 81 mg tablet,delayed 81 mg PO QAM 12/03/18 11/11/19 History release furosemide 20 mg tablet 20 mg PO [id number]@0800 12/03/18 11/11/19 History metoprolol succinate 50 mg 50 mg PO QAM 12/03/18 11/11/19 History tablet,extended release 24 hr potassium chloride 20 mEq 20 meq PO QAM 12/03/18 11/11/19 History tablet,extended release(part/cryst) ropinirole 1 mg tablet 1 mg PO QPM tab 12/03/18 11/11/19 History famotidine 20 mg tablet 20 mg PO BID 12/16/18 11/11/19 History gabapentin 100 mg capsule 100 mg PO HS 12/16/18 11/11/19 History polyethylene glycol 3350 [Miralax] 17 gm PO DAILY PRN #30 ea 01/02/19 11/11/19 Rx levothyroxine 125 mcg PO QAM 04/07/19 11/11/19 History ascorbic acid (vitamin C) [Vitamin 250 mg PO DAILY #30 tab 04/09/19 11/11/19 Rx C] fluticasone fur. 100 mcg-umeclid 1 puffs INHALATION QAM #60 ea 06/17/19 11/11/19 Rx 62.5 mcg-vilant 25 mcg inhalat.powder levalbuterol tartrate 45 2 puffs INH Q4H PRN #15 gm 06/17/19 11/11/19 Rx mcg/actuation aerosol inhaler cholecalciferol (vitamin D3) 50 mcg PO DAILY 11/11/19 11/11/19 History [Vitamin D3] ursodiol 300 mg PO BID 11/11/19 11/11/19 History Allergies Allergy/AdvReac Type Severity Reaction Status Date / Time No Known Drug Allergies Allergy Unknown Verified 11/11/19 01:41 Past Med/Surg History Medical History Atrial fibrillation Common bile duct (CBD) obstruction COPD (chronic obstructive pulmonary disease) GERD (gastroesophageal reflux disease) Hypertension Hypothyroidism associated with surgical procedure Obstructive sleep apnea Pacemaker Pulmonary emphysema Restless leg syndrome Solitary lung nodule Surgical History History of ERCP 12/30/18 Grade 1 view Mac 3 blade S/P cholecystectomy S/P thyroidectomy Family History Other Cancer Social History Smoking Status: Former smoker Tobacco Type: Cigarettes Cigarettes Per Day: 20; Second Hand Exposure: No; Hx Alcohol Use: No Hx Substance Use: No Preferred Language: Vietnamese Communication Ability: Effective Nitrogen Operator Required: No Beliefs That Will Affect Care: None marital status: Current Living Situation: Alone current occupational status: retired Feels Safe at Home: Yes Assistive Devices: Denture - Upper and Walker Review of Systems See HPI for pertinent positives & negatives. and A total of 10 systems reviewed and were otherwise negative Physical Exam Vital Signs Vital Signs - 24 hr 11/10/19 19:30 11/10/19 19:35 11/10/19 19:39 Temperature 37.8 C H Temperature Source Oral Pulse Rate 82 74 73 Pulse Rate from SpO2 Sensor 75 73 Pulse Rhythm Regular Respiratory Rate 20 25 H 24 Respiratory Effort / Characteristics Short of Breath Respiratory Depth Shallow Respiratory Pattern Regular Blood Pressure 137/70 137/70 Blood Pressure Mean 92 89 Pulse Oximetry 90 96 96 Oxygen Delivery Method Room Air Oxygen Flow Rate Sepsis Recent Fever Within 48 Hours Yes Sepsis New/Unexplained Change in Mental Status No Sepsis Action Taken by Nursing No Action Required Oxygen Flow Rate - Titration 2 Pulse Oximetry Post Tiitration 94 11/10/19 20:00 11/10/19 20:01 11/10/19 20:30 Temperature Temperature Source Pulse Rate 81 76 81 Pulse Rate from SpO2 Sensor 82 77 87 Pulse Rhythm Respiratory Rate 20 29 H 29 H Respiratory Effort / Characteristics Respiratory Depth Respiratory Pattern Blood Pressure 147/86 H 143/74 H Blood Pressure Mean 112 104 Pulse Oximetry 95 96 96 Oxygen Delivery Method Oxygen Flow Rate Sepsis Recent Fever Within 48 Hours Sepsis New/Unexplained Change in Mental Status Sepsis Action Taken by Nursing Oxygen Flow Rate - Titration Pulse Oximetry Post Tiitration 11/10/19 20:31 11/10/19 20:37 11/10/19 21:00 Temperature Temperature Source Pulse Rate 80 69 Pulse Rate from SpO2 Sensor 82 66 Pulse Rhythm Respiratory Rate 32 H 22 Respiratory Effort / Characteristics Respiratory Depth Respiratory Pattern Blood Pressure 132/65 Blood Pressure Mean 92 Pulse Oximetry 95 96 96 Oxygen Delivery Method Nasal Cannula Oxygen Flow Rate 2 Sepsis Recent Fever Within 48 Hours Sepsis New/Unexplained Change in Mental Status Sepsis Action Taken by Nursing Oxygen Flow Rate - Titration Pulse Oximetry Post Tiitration 11/10/19 21:01 11/10/19 21:30 11/10/19 21:31 Temperature Temperature Source Pulse Rate 69 63 70 Pulse Rate from SpO2 Sensor 72 62 68 Pulse Rhythm Respiratory Rate 23 25 H 21 Respiratory Effort / Characteristics Respiratory Depth Respiratory Pattern Blood Pressure 131/61 Blood Pressure Mean 74 Pulse Oximetry 97 97 97 Oxygen Delivery Method Oxygen Flow Rate Sepsis Recent Fever Within 48 Hours Sepsis New/Unexplained Change in Mental Status Sepsis Action Taken by Nursing Oxygen Flow Rate - Titration Pulse Oximetry Post Tiitration 11/10/19 22:00 11/10/19 22:01 11/10/19 22:30 Temperature Temperature Source Pulse Rate 63 66 65 Pulse Rate from SpO2 Sensor 64 69 63 Pulse Rhythm Respiratory Rate 27 H 26 H 31 H Respiratory Effort / Characteristics Non-Labored Respiratory Depth Respiratory Pattern Blood Pressure 126/70 129/61 Blood Pressure Mean 90 91 Pulse Oximetry 97 96 99 Oxygen Delivery Method Oxygen Flow Rate Sepsis Recent Fever Within 48 Hours Sepsis New/Unexplained Change in Mental Status Sepsis Action Taken by Nursing Oxygen Flow Rate - Titration Pulse Oximetry Post Tiitration 11/10/19 22:31 11/10/19 23:00 11/10/19 23:01 Temperature Temperature Source Pulse Rate 70 66 66 Pulse Rate from SpO2 Sensor 67 64 67 Pulse Rhythm Respiratory Rate 26 H 30 H 24 Respiratory Effort / Characteristics Respiratory Depth Respiratory Pattern Blood Pressure 136/68 Blood Pressure Mean 93 Pulse Oximetry 99 99 99 Oxygen Delivery Method Oxygen Flow Rate Sepsis Recent Fever Within 48 Hours Sepsis New/Unexplained Change in Mental Status Sepsis Action Taken by Nursing Oxygen Flow Rate - Titration Pulse Oximetry Post Tiitration 11/10/19 23:15 11/10/19 23:18 11/10/19 23:30 Temperature 37.3 C Temperature Source Oral Pulse Rate Pulse Rate from SpO2 Sensor Pulse Rhythm Respiratory Rate Respiratory Effort / Characteristics Short of Breath Respiratory Depth Respiratory Pattern Blood Pressure 137/80 Blood Pressure Mean 96 Pulse Oximetry Oxygen Delivery Method Oxygen Flow Rate Sepsis Recent Fever Within 48 Hours Sepsis New/Unexplained Change in Mental Status Sepsis Action Taken by Nursing Oxygen Flow Rate - Titration Pulse Oximetry Post Tiitration 11/10/19 23:43 11/10/19 23:45 11/10/19 23:46 Temperature Temperature Source Pulse Rate 71 89 81 Pulse Rate from SpO2 Sensor 90 81 Pulse Rhythm Respiratory Rate 26 H 31 H 30 H Respiratory Effort / Characteristics Respiratory Depth Respiratory Pattern Blood Pressure 147/84 H Blood Pressure Mean 109 Pulse Oximetry 91 92 Oxygen Delivery Method Oxygen Flow Rate Sepsis Recent Fever Within 48 Hours Sepsis New/Unexplained Change in Mental Status Sepsis Action Taken by Nursing Oxygen Flow Rate - Titration Pulse Oximetry Post Tiitration 11/11/19 00:00 11/11/19 00:01 11/11/19 00:30 Temperature Temperature Source Pulse Rate 62 66 66 Pulse Rate from SpO2 Sensor 64 63 65 Pulse Rhythm Respiratory Rate 29 H 28 H 28 H Respiratory Effort / Characteristics Respiratory Depth Respiratory Pattern Blood Pressure 135/56 L 92/61 L Blood Pressure Mean 91 69 Pulse Oximetry 93 92 91 Oxygen Delivery Method Oxygen Flow Rate Sepsis Recent Fever Within 48 Hours Sepsis New/Unexplained Change in Mental Status Sepsis Action Taken by Nursing Oxygen Flow Rate - Titration Pulse Oximetry Post Tiitration 11/11/19 00:52 11/11/19 00:54 11/11/19 01:00 Temperature Temperature Source Pulse Rate 67 85 62 Pulse Rate from SpO2 Sensor 67 62 Pulse Rhythm Respiratory Rate 30 H 24 24 Respiratory Effort / Characteristics Respiratory Depth Respiratory Pattern Blood Pressure 144/55 H 144/55 H 120/60 Blood Pressure Mean 102 84 75 Pulse Oximetry 93 93 91 Oxygen Delivery Method Room Air Oxygen Flow Rate Sepsis Recent Fever Within 48 Hours Sepsis New/Unexplained Change in Mental Status Sepsis Action Taken by Nursing Oxygen Flow Rate - Titration Pulse Oximetry Post Tiitration 11/11/19 01:30 11/11/19 01:31 11/11/19 02:00 Temperature Temperature Source Pulse Rate 67 65 70 Pulse Rate from SpO2 Sensor 66 66 71 Pulse Rhythm Respiratory Rate 29 H 27 H 24 Respiratory Effort / Characteristics Non-Labored Respiratory Depth Respiratory Pattern Blood Pressure 119/44 L 144/74 H Blood Pressure Mean 68 100 Pulse Oximetry 93 93 91 Oxygen Delivery Method Oxygen Flow Rate Sepsis Recent Fever Within 48 Hours Sepsis New/Unexplained Change in Mental Status Sepsis Action Taken by Nursing Oxygen Flow Rate - Titration Pulse Oximetry Post Tiitration 11/11/19 02:01 11/11/19 02:24 Temperature Temperature Source Pulse Rate 70 Pulse Rate from SpO2 Sensor 72 Pulse Rhythm Respiratory Rate 25 H Respiratory Effort / Characteristics Respiratory Depth Respiratory Pattern Blood Pressure Blood Pressure Mean Pulse Oximetry 92 87 L Oxygen Delivery Method Room Air Room Air Oxygen Flow Rate Sepsis Recent Fever Within 48 Hours Sepsis New/Unexplained Change in Mental Status Sepsis Action Taken by Nursing Oxygen Flow Rate - Titration 2 Pulse Oximetry Post Tiitration 96 Vital signs reviewed. General: Chronically ill-appearing 79-year-old female, in no significant distress. HEENT: Mild conjunctival injection bilaterally with notable proptosis. Dry mucous membranes. Post thyroidectomy scar noted to the neck. Cardiovascular: Rate controlled with occasional irregularity. Pulmonary: Coarse breath sounds bilaterally with normal work of breathing. Noted to be borderline hypoxic on room air. Abdomen: Soft, mild mid upper abdominal tenderness, no rebound, no guarding, no tympany to percussion, nondistended, positive bowel sounds. Musculoskeletal: Atraumatic, no peripheral edema. Neurologic: Patient awake alert and oriented x 3 Skin: Warm, dry, no rash Course Administered Medications Sodium Chloride (Nss 1000ml) 1,000 mls @ 125 mls/hr IV .Q8H STA Stop: 11/11/19 04:00 Last Admin: 11/10/19 20:58 Dose: 125 mls/hr Documented by: [id number] Discontinued Medications Sodium Chloride (Nss 1000ml) 250 mls @ 999 mls/hr IV .Q16M ONE Stop: 11/10/19 20:16 Last Infusion: 11/10/19 21:25 Dose: 0 mls/hr Documented by: [id number] Admin: 11/10/19 20:58 Dose: 999 mls/hr Documented by: [id number] Piperacillin Sod/Tazobactam Sod (Zosyn) 4.5 gm in 120 mls @ 240 mls/hr IV NOW ONE Stop: 11/11/19 01:43 Last Infusion: 11/11/19 02:09 Dose: 0 mls/hr Documented by: [id number] Admin: 11/11/19 01:37 Dose: 240 mls/hr Documented by: [id number] Ioversol (Ioversol 100ml) 94 ml IV ONCE ONE Stop: 11/10/19 23:37 Last Admin: 11/10/19 23:37 Dose: 94 ml Documented by: [id number] Medical Decision Making Differential Diagnosis Differential diagnosis: Etiologies such as viral syndrome, otitis, pharyngitis, pneumonia, influenza, meningitis, urinary tract infection, septic arthritis, soft tissue infectious process, intra-abdominal process, sepsis, bacteremia, as well as others were entertained. Medical Records Attestation: I reviewed the patient's medical records. Home Medications Current Medication List: was personally reviewed by me Laboratory Data Attestation: I reviewed the patient's lab results. Result diagrams: 11/10/19 20:41 11/10/19 20:41 Lab Results 11/10/19 11/10/19 11/10/19 Range/Units 20:36 20:36 20:41 WBC (4.8-10.8) K/uL RBC (4.2-5.4) M/uL Hgb (12.0-16.0) g/dL Hct (37-47) % MCV (80-100) fL MCH (25-34) pg MCHC (32-36) g/dL RDW Std Deviation (36.4-46.3) fL RDW Coeff of Agusto (11.5-14.5) % Plt Count (130-400) K/uL MPV (7.4-10.4) fL Immature Gran % (Auto) % Neut % (Auto) % Lymph % (Auto) % [place] % (Auto) % Eos % (Auto) % Baso % (Auto) % Neut # (Auto) (1.4-6.5) K/uL Lymph # (Auto) (1.2-3.4) K/uL [place] # (Auto) (0.11-0.59) K/uL Eos # (Auto) (0-0.5) K/uL Baso # (Auto) (0-0.2) K/uL Immature Gran # (Auto) (0.00-0.02) K/uL PT (9.0-12.0) Seconds INR (0.9-1.1) APTT (21.0-31.0) Seconds PTT Ratio Sodium (136-145) mmol/L Potassium (3.5-5.1) mmol/L Chloride (98-107) mmol/L Carbon Dioxide (21-32) mmol/L Anion Gap (3-11) BUN (7-18) mg/dl Creatinine (0.6-1.2) mg/dl Est Cr Clr Drug Dosing ml/min Est GFR ( Amer) Est GFR (Non-Af Amer) BUN/Creatinine Ratio (10-20) Glucose (70-99) mg/dl Lactate (0.4-2.0) mmol/L Calcium (8.5-10.1) mg/dl Magnesium (1.8-2.4) mg/dl Total Bilirubin (0.2-1) mg/dl AST (15-37) U/L ALT (12-78) U/L Alkaline Phosphatase (45-117) U/L Troponin I (0-0.045) ng/ml Total Protein (6.4-8.2) gm/dl Albumin (3.4-5.0) gm/dl Globulin (2.5-4.0) gm/dl Albumin/Globulin Ratio (0.9-2) Lipase (73-393) U/L Procalcitonin 1.46 H (0-0.5) ng/ml Urine Color Urine Appearance (Clear) Urine pH (4.5-7.5) Ur Specific [place] (1.000-1.030) Urine Protein (Negative) Urine Glucose (UA) (Negative) Urine Ketones (Negative) Urine Blood (Negative) Urine Nitrite (Negative) Urine Bilirubin (Negative) Urine Urobilinogen (Negative) Ur Leukocyte Esterase (Negative) Urine WBC (Auto) (0-5) /hpf Urine RBC (Auto) (0-4) /hpf U Hyaline Cast (Auto) (0-5) /lpf U Epithel Cells (Auto) (0-5) /lpf Urine Bacteria (Auto) (Negative) COVID-19 Eval Order Covid19 Done at [facility] COVID-19 PCR NEGATIVE (Negative) 11/10/19 11/10/19 11/10/19 Range/Units 20:41 20:41 20:41 WBC 13.37 H (4.8-10.8) K/uL RBC 4.36 (4.2-5.4) M/uL Hgb 14.3 (12.0-16.0) g/dL Hct 42.8 (37-47) % MCV 98.2 (80-100) fL MCH 32.8 (25-34) pg MCHC 33.4 (32-36) g/dL RDW Std Deviation 46.8 H (36.4-46.3) fL RDW Coeff of Agusto 13.0 (11.5-14.5) % Plt Count 302 (130-400) K/uL MPV 9.7 (7.4-10.4) fL Immature Gran % (Auto) 0.2 % Neut % (Auto) 84.2 % Lymph % (Auto) 6.7 % [place] % (Auto) 8.2 % Eos % (Auto) 0.5 % Baso % (Auto) 0.2 % Neut # (Auto) 11.25 H (1.4-6.5) K/uL Lymph # (Auto) 0.89 L (1.2-3.4) K/uL [place] # (Auto) 1.10 H (0.11-0.59) K/uL Eos # (Auto) 0.07 (0-0.5) K/uL Baso # (Auto) 0.03 (0-0.2) K/uL Immature Gran # (Auto) 0.03 H (0.00-0.02) K/uL PT 11.0 (9.0-12.0) Seconds INR 1.0 (0.9-1.1) APTT 27.6 (21.0-31.0) Seconds PTT Ratio 1.0 Sodium 138 (136-145) mmol/L Potassium 3.8 (3.5-5.1) mmol/L Chloride 102 (98-107) mmol/L Carbon Dioxide 25 (21-32) mmol/L Anion Gap 11.0 (3-11) BUN 17 (7-18) mg/dl Creatinine 1.22 H (0.6-1.2) mg/dl Est Cr Clr Drug Dosing 42.9 ml/min Est GFR ( Amer) 48.1 Est GFR (Non-Af Amer) 41.5 BUN/Creatinine Ratio 13.7 (10-20) Glucose 108 H (70-99) mg/dl Lactate (0.4-2.0) mmol/L Calcium 9.5 (8.5-10.1) mg/dl Magnesium 2.1 (1.8-2.4) mg/dl Total Bilirubin 1.6 H (0.2-1) mg/dl AST 35 (15-37) U/L ALT 27 (12-78) U/L Alkaline Phosphatase 180 H (45-117) U/L Troponin I < 0.015 (0-0.045) ng/ml Total Protein 8.0 (6.4-8.2) gm/dl Albumin 3.6 (3.4-5.0) gm/dl Globulin 4.4 H (2.5-4.0) gm/dl Albumin/Globulin Ratio 0.8 L (0.9-2) Lipase 50 L (73-393) U/L Procalcitonin (0-0.5) ng/ml Urine Color Urine Appearance (Clear) Urine pH (4.5-7.5) Ur Specific [place] (1.000-1.030) Urine Protein (Negative) Urine Glucose (UA) (Negative) Urine Ketones (Negative) Urine Blood (Negative) Urine Nitrite (Negative) Urine Bilirubin (Negative) Urine Urobilinogen (Negative) Ur Leukocyte Esterase (Negative) Urine WBC (Auto) (0-5) /hpf Urine RBC (Auto) (0-4) /hpf U Hyaline Cast (Auto) (0-5) /lpf U Epithel Cells (Auto) (0-5) /lpf Urine Bacteria (Auto) (Negative) COVID-19 Eval Order COVID-19 PCR (Negative) 11/10/19 11/10/19 Range/Units 20:41 22:22 WBC (4.8-10.8) K/uL RBC (4.2-5.4) M/uL Hgb (12.0-16.0) g/dL Hct (37-47) % MCV (80-100) fL MCH (25-34) pg MCHC (32-36) g/dL RDW Std Deviation (36.4-46.3) fL RDW Coeff of Agusto (11.5-14.5) % Plt Count (130-400) K/uL MPV (7.4-10.4) fL Immature Gran % (Auto) % Neut % (Auto) % Lymph % (Auto) % [place] % (Auto) % Eos % (Auto) % Baso % (Auto) % Neut # (Auto) (1.4-6.5) K/uL Lymph # (Auto) (1.2-3.4) K/uL [place] # (Auto) (0.11-0.59) K/uL Eos # (Auto) (0-0.5) K/uL Baso # (Auto) (0-0.2) K/uL Immature Gran # (Auto) (0.00-0.02) K/uL PT (9.0-12.0) Seconds INR (0.9-1.1) APTT (21.0-31.0) Seconds PTT Ratio Sodium (136-145) mmol/L Potassium (3.5-5.1) mmol/L Chloride (98-107) mmol/L Carbon Dioxide (21-32) mmol/L Anion Gap (3-11) BUN (7-18) mg/dl Creatinine (0.6-1.2) mg/dl Est Cr Clr Drug Dosing ml/min Est GFR ( Amer) Est GFR (Non-Af Amer) BUN/Creatinine Ratio (10-20) Glucose (70-99) mg/dl Lactate 1.0 (0.4-2.0) mmol/L Calcium (8.5-10.1) mg/dl Magnesium (1.8-2.4) mg/dl Total Bilirubin (0.2-1) mg/dl AST (15-37) U/L ALT (12-78) U/L Alkaline Phosphatase (45-117) U/L Troponin I (0-0.045) ng/ml Total Protein (6.4-8.2) gm/dl Albumin (3.4-5.0) gm/dl Globulin (2.5-4.0) gm/dl Albumin/Globulin Ratio (0.9-2) Lipase (73-393) U/L Procalcitonin (0-0.5) ng/ml Urine Color Yellow Urine Appearance Clear (Clear) Urine pH 6.5 (4.5-7.5) Ur Specific [place] 1.010 (1.000-1.030) Urine Protein Negative (Negative) Urine Glucose (UA) Negative (Negative) Urine Ketones Negative (Negative) Urine Blood Negative (Negative) Urine Nitrite Negative (Negative) Urine Bilirubin Negative (Negative) Urine Urobilinogen Positive H (Negative) Ur Leukocyte Esterase Trace H (Negative) Urine WBC (Auto) 0 (0-5) /hpf Urine RBC (Auto) 0-4 (0-4) /hpf U Hyaline Cast (Auto) 1-5 (0-5) /lpf U Epithel Cells (Auto) >30 H (0-5) /lpf Urine Bacteria (Auto) Negative (Negative) COVID-19 Eval Order COVID-19 PCR (Negative) Imaging Data Attestation: I personally reviewed and interpreted this imaging study as follows: Radiologist's Impression: CT ABDOMEN & PELVIS With Contrast: Question cirrhotic liver morphology. Intrahepatic pneumobilia. Areas of irregular low-density involving the right hepatic dome lesion may represent scarring. No appendicitis, colitis, diverticulitis or bowel obstruction. Distal colonic diverticulosis. No adnexal masses, free air or free fluid. Radiologist: Bryan Kaiser M.D. Study ready at 23:48 and initial results transmitted at 00:30 ECG Data Attestation: I personally reviewed and interpreted this ECG as follows: Indication: + SOB/dyspnea Rate (beats per minute): 76 Rhythm: + atrial flutter (Variable AV block) ECG Intervals/blocks: + Left anterior fascicular block and + Normal QT-c ECG ST segments: + Normal ST segments ECG Findings: + LVH; no PACs and no PVCs Blood Pressure Blood Pressure Findings: Elevated blood pressure Blood Pressure Disposition: further management by hospitalist PENELOPE Nowak This patient was evaluated and appeared to be in no significant distress. IV access was obtained and laboratory work was drawn. An order for cardiac monitoring was placed in the patient was noted to be in atrial flutter with variable block at 82 bpm. IV fluids were initiated. Chest x-ray was performed and reveals some pulmonary vascular congestion but no focal lung consolidation. Rapid COVID was obtained and is negative. Patient did complain of some upper abdominal discomfort and given her history of pancreatitis, retained stones and ERCP, CT imaging was performed. This study is read as above and is significant for intrahepatic pneumobilia which seems to be chronic. The patient clinically does not appear well. I am concerned about the possibility of an occult pneumonia or cholangitis. Patient was referred to the hospitalist service for further evaluation and management. Patient is aware of this plan and agrees. Impression & Plan Fever, Acute dyspnea, Epigastric abdominal pain Discharge Plan Visit Data Chief Complaint: Shortness of Breath/Dyspnea ED Provider: Tiffanie Pardo Discharge Problem: Fever, Acute dyspnea, Epigastric abdominal pain Forms Stand Alone Forms: [facility] Prescriptions Prescriptions: No Action acetaminophen 500 mg tablet 500 mg PO Q4H PRN (Reason: Pain) RF: 0 aspirin 81 mg tablet,delayed release (DR/EC) 81 mg PO QAM RF: 0 metoprolol succinate 50 mg tablet extended release 24 hr 50 mg PO QAM RF: 0 potassium chloride 20 mEq tablet,ER particles/crystals 20 meq PO QAM RF: 0 ropinirole 1 mg tablet 1 mg PO QPM RF: 0 furosemide 20 mg tablet 20 mg PO [id number]@0800 RF: 0 Trelegy Ellipta 100-62.5-25 mcg blister with device 1 puffs inhalation QAM Qty: 60 RF: 11 levalbuterol tartrate [Xopenex HFA] 45 mcg/actuation HFA aerosol inhaler 2 puffs INH Q4H PRN (Reason: Shortness Of Breath) Qty: 15 RF: 11 famotidine 20 mg tablet 20 mg PO BID RF: 0 gabapentin 100 mg capsule 100 mg PO HS RF: 0 polyethylene glycol 3350 [Miralax] 17 gram powder in packet 17 gm PO DAILY PRN (Reason: constipation) Qty: 30 RF: 0 levothyroxine 125 mcg Tablet 125 mcg PO QAM RF: 0 ascorbic acid (vitamin C) [Vitamin C] 250 mg tablet 250 mg PO DAILY Qty: 30 RF: 0 ursodiol 300 mg capsule 300 mg PO BID RF: 0 cholecalciferol (vitamin D3) [Vitamin D3] 50 mcg (2,000 unit) Tablet 50 mcg PO DAILY RF: 0 Discharge Problem: Fever Qualifiers: Fever type: unspecified Qualified Code(s): R50.9 - Fever, unspecified
--- NOTE | 2019-11-11 03:52 | Billing Data ---
Date of Service November 11, 2019 Coding Level of Care Code 59389 Initial Inpt Care Lvl 3
[2019-11-11] MEDS ORDERED: ALUMINUM/MAGNESIUM SUSP 30 ML UDC PO PRN (04:51)
[2019-11-11] MEDS ORDERED: ACETAMINOPHEN 325 MG TAB PO PRN (04:51)
[2019-11-11] MEDS ORDERED: POLYETHYLENE (MIRALAX) 17 GM PACK PO PRN (04:51)
[2019-11-11] MEDS ORDERED: LEVALBUTEROL TARTRATE 15 GM HFA.AER.AD INH PRN (04:51)
[2019-11-11] MEDS ORDERED: MoRPHine SULFATE 2 MG/ML CARP IV PRN (04:51)
[2019-11-11] MEDS ORDERED: ONDANSETRON INJ 2 MG/ML 2 ML VIAL IV PRN ×2 (04:51→15:08)
[2019-11-11] MEDS: PIPERACILLIN/TAZOBACTAM 4.5 GM in DEXTROSE 5% 100 ML IV SCH ×3 (06:00→21:32)
[2019-11-11] MEDS: LEVOTHYROXINE SODIUM 125 MCG TABLET PO SCH (06:03)
--- NOTE | 2019-11-11 06:50 | Ultrasound Report ---
US liver HISTORY: 79 years-old Female ruq pain, concern for cholangitis acute right upper quadrant abdominal pain COMPARISON: CT abdomen and pelvis 11/10/2019, 04/07/2019. TECHNIQUE: Multiple real-time sonographic images of the abdominal right upper quadrant were obtained assessing grayscale appearance and color flow FINDINGS: The visualized pancreas is unremarkable. Common bile duct is dilated measuring up to 8 mm. Linear sha dowing echogenic foci are noted within the distal common bile duct at the level of the pancreatic hea d. Heterogeneous appearance of the liver. Intrahepatic pneumobilia. No hepatic mass lesion identified . Cholecystectomy. Cortical thinning of the right kidney without hydronephrosis. IMPRESSION: Cholecystectomy with pneumobilia suggestive of prior sphincterotomy. Intrahepatic and extrahepatic pn eumobilia is noted on the CT abdomen and pelvis study from 11/10/2019. Linear echogenic focus within t he common bile duct likely relates to pneumobilia, however should be correlated with laboratory merlin sis to exclude choledocholithiasis. ACT 112: Negative or not required by law. The above report was generated using voice recognition software. It may contain grammatical, syntax o r spelling errors. Electronically signed by: Vivek Shankar M.D. 11/11/2019 6:49 AM
--- NOTE | 2019-11-11 08:16 | CT Scan Report ---
CT abd pelvis IV con only CLINICAL HISTORY: mid abd pain, low grade fever, h/o pancreatitis COMPARISON STUDY: 04/07/2019 TECHNIQUE: The patient was scanned in a dynamic helical fashion during intravenous administration of 94 cc Optiray 320 A dose lowering technique was utilized adhering to the principles of ALARA. CT DOSE: 925.66 mGy.cm FINDINGS: Lower chest: Pacemaker electrodes are visualized. There is minimal right lower lobe bronchial wall th ickening. There is right-sided pleural thickening. There is mild subpleural interstitial prominence. Liver: There is hepatic steatosis. There is persistent nonspecific heterogeneous enhancement of the r ight lobe and medial segment of the left lobe liver periphery. The liver surface is somewhat nodular. Gallbladder: Surgically absent Spleen: Normal in size and attenuation. Pancreas: No discrete pancreatic masses are visualized. There is no pancreatic ductal dilatation. The re is mild dilatation of common bile duct. There is a 38 mm cystic structure abutting the lateral duo denal wall. This likely represents either a pseudocyst or diverticulum. This was present on the prior study. There is been resolution of the infiltration of the peripancreatic fat described in the prior study Adrenal glands: There is stable 13 mm left adrenal nodule Kidneys: There is symmetric renal cortical enhancement. The kidneys are normal in size without hydron ephrosis. Bowel: There are no transition zones indicate bowel obstruction. There is colonic diverticulosis. The re is no evidence of acute diverticulitis. The appendix appears normal. Peritoneum: There is no intraperitoneal free air or abdominal ascites. Vasculature: The abdominal aorta is normal in course and caliber. Adenopathy: None. Pelvic viscera: The bladder, and pelvic viscera are unremarkable. Skeletal structures: No destructive osseous lesions are seen. IMPRESSION: 1. No evidence of bowel obstruction. No evidence of free air 2. Possible hepatic cirrhosis. Pneumobilia. Stable heterogeneous enhancement of the periphery of the right lobe and medial segment left lobe 3. No evidence of acute pancreatitis 4. Stable 13 mm left adrenal nodule 5. No evidence of acute diverticulitis. No evidence of acute appendicitis. 6. 38 mm cystic lesion abutting the descending duodenum. This likely represents either a pseudocyst o r duodenal diverticulum. ACT 112: Negative or not required by law. Electronically signed by: Aman De Jesus M.D. 11/11/2019 8:15 AM
[2019-11-11] MEDS: FUROSEMIDE 20 MG TAB PO SCH (08:52)
[2019-11-11] MEDS: CHOLECALCIFEROL 1,000 UNITS 25 MCG TAB PO SCH (08:52)
[2019-11-11] MEDS: ASCORBIC ACID 500 MG TAB PO SCH (08:52)
[2019-11-11] MEDS: POTASSIUM CHLORIDE 20 MEQ TABCR PO SCH (08:53)
[2019-11-11] MEDS: ASPIRIN 81 MG ECTAB PO SCH (08:53)
[2019-11-11] MEDS: METOPROLOL SUCC 50MG EXT REL TAB PO SCH (08:53)
[2019-11-11] MEDS: FAMOTIDINE 20 MG TAB PO SCH ×2 (08:53→20:01)
[2019-11-11] MEDS: FLUTICASONE FUROATE 100MCG 14 PUFFS/INHALER INH SCH (08:54)
[2019-11-11] MEDS: UMECLIDINIUM/VILANTEROL 62.5/25MCG 7 PUFFS/INHALER INH SCH (08:54)
[2019-11-11] MEDS: ursodioL 300 MG CAP PO SCH ×2 (08:55→20:01)
[2019-11-11 10:04] LABS: Basophils # (auto) 0.02 K/uL (0-0.2); Basophils % (auto) 0.2 %; Eosinophils # (auto) 0.07 K/uL (0-0.5); Eosinophils % (auto) 0.7 %; Hematocrit (blood only) 42.2 % (37-47); Hemoglobin 14.1 g/dL (12.0-16.0); Immature Granulocytes # (auto) 0.03 K/uL (0.00-0.02); Immature Granulocytes % (auto) 0.3 %; Lymphocytes # (auto) 0.71 K/uL (1.2-3.4); Lymphocytes % (auto) 7.2 %; Mean Corpuscular Hemoglobin 32.7 pg (25-34); Mean Corpuscular Volume 97.9 fL (80-100); Mean Platelet Volume 9.7 fL (7.4-10.4); Monocytes # (auto) 0.77 K/uL (0.11-0.59); Monocytes % (auto) 7.9 %; Neutrophils % (auto) 83.7 %; Platelet Count 249 K/uL (130-400); RDW Standard Deviation 46.6 fL (36.4-46.3); Red Blood Count 4.31 M/uL (4.2-5.4)
[2019-11-11 10:11] LABS: Mean Corpuscular Hgb Conc 33.4 g/dL (32-36)
[2019-11-11 10:21] LABS: Albumin Level 3.2 gm/dl (3.4-5.0); BUN Creatinine Ratio 13.1 (10-20); Creatinine Clr Calc Pharmacy 42.9 ml/min; Est GFR (African American) 49.6; Est GFR (Non-African American) 42.8; Potassium 3.8 mmol/L (3.5-5.1)
[2019-11-11 10:24] LABS: Albumin Globulin Ratio 0.8 (0.9-2); Bilirubin,Total 2.2 mg/dl (0.2-1); Globulin 4.2 gm/dl (2.5-4.0); Total Protein 7.4 gm/dl (6.4-8.2)
--- NOTE | 2019-11-11 11:23 | Gastrointestinal Consultation ---
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 Continue abx. ERCP with DR Rodrigues scheduled for this afternoon. Proc and risks explained to patient which include but not limited to med reaction, bleeding, perforation, aspiration, infection, and pacnreatitis. History of Present Illness Reason for Consultation: ascending cholangitis. Attending Physician: Angie Elliott MD History of Present Illness CC fever, abd pain HPI Pt well know to me from outpt and intpt GI encounters. Pt is s/p selina but has intermittent bouts of cholangitis requiring ERCP with stone/sludge removal despite the use of Actigall. She was most recently admitted to [facility] 03/2019 for cholangitis and had ERCP with removal of sludge and pus. Her elevated were elevated then but as outpt she had LFTS done 04/2019 and 06/2019 normal. She came to ER with fever of 102 some epigatric pain and shortness of breath. She denies shortness of breath and abd pain at present. Her LFTs on admit TB 1.6, alk phos 180 and this am TB 2.[address] a/p fatty and nodular liver, pneumobilia, psuedocyst vs duodenal diverticulum (ERCP described diverticulum),s/p selina and ductal dilatation. RUQ u/s s/p selina pneumbilia, echogenic foci distal duct air vs stones. Lipase normal on admit this am. WBC elevated on admit but this am after abx started is normal. Allergies Allergy/AdvReac Type Severity Reaction Status Date / Time No Known Drug Allergies Allergy Unknown Verified 11/11/19 01:41 Home Medications Home Medications Medication Instructions Recorded Confirmed Type acetaminophen 500 mg tablet 500 mg PO Q4H PRN 12/03/18 11/11/19 History aspirin 81 mg tablet,delayed 81 mg PO QAM 12/03/18 11/11/19 History release furosemide 20 mg tablet 20 mg PO MOTUWETHFRSA@0800 12/03/18 11/11/19 History metoprolol succinate 50 mg 50 mg PO QAM 12/03/18 11/11/19 History tablet,extended release 24 hr potassium chloride 20 mEq 20 meq PO QAM 12/03/18 11/11/19 History tablet,extended release(part/cryst) ropinirole 1 mg tablet 1 mg PO QPM tab 12/03/18 11/11/19 History famotidine 20 mg tablet 20 mg PO BID 12/16/18 11/11/19 History gabapentin 100 mg capsule 100 mg PO HS 12/16/18 11/11/19 History polyethylene glycol 3350 [Miralax] 17 gm PO DAILY PRN #30 ea 01/02/19 11/11/19 Rx levothyroxine 125 mcg PO QAM 04/07/19 11/11/19 History ascorbic acid (vitamin C) [Vitamin 250 mg PO DAILY #30 tab 04/09/19 11/11/19 Rx C] fluticasone fur. 100 mcg-umeclid 1 puffs INHALATION QAM #60 ea 06/17/19 11/11/19 Rx 62.5 mcg-vilant 25 mcg inhalat.powder levalbuterol tartrate 45 2 puffs INH Q4H PRN #15 gm 06/17/19 11/11/19 Rx mcg/actuation aerosol inhaler cholecalciferol (vitamin D3) 50 mcg PO DAILY 11/11/19 11/11/19 History [Vitamin D3] ursodiol 300 mg PO BID 11/11/19 11/11/19 History Patient History Medical History Atrial fibrillation Common bile duct (CBD) obstruction COPD (chronic obstructive pulmonary disease) GERD (gastroesophageal reflux disease) Hypertension Hypothyroidism associated with surgical procedure Obstructive sleep apnea Pacemaker Pulmonary emphysema Restless leg syndrome Solitary lung nodule Surgical History History of ERCP 12/30/18 Grade 1 view Mac 3 blade S/P cholecystectomy S/P thyroidectomy Family History Other Cancer Social History Smoking Status: Former smoker Tobacco Type: Cigarettes Cigarettes Per Day: 20; Second Hand Exposure: No; Hx Alcohol Use: No Hx Substance Use: No Preferred Language: Sami Communication Ability: Effective Computer Forensics Analyst Required: No Beliefs That Will Affect Care: None marital status: Current Living Situation: Alone current occupational status: retired Feels Safe at Home: Yes Assistive Devices: Denture - Upper and Walker Review of Systems Review of Systems: All systems reviewed & are unremarkable except as noted in HPI & below Physical Exam Constitutional: WD/WN, vitals as above Eyes: PERRL, conjunctivae normal, anicteric sclerae ENMT: external ear and nose normal. Neck: normal visual inspection and trachea midline Respiratory: normal respiratory effort, lungs clear to auscultation Cardiovascular: RRR, no murmur, no edema Gastrointestinal (Abdomen): pos bs, soft, no guarding nor rebound Skin: no rashes, warm and dry Neurologic: PERRL, EOMI, accommodation nl, no face palsy, no dysarthria Psychiatric: A+Ox3, euthymic affect Results & Data ([facility]) Vital Signs (Past 12 Hours) Vital Signs Temp Pulse Pulse Resp BP BP Pulse Ox 11/11/19 08:50 94 11/11/19 07:59 37.5 C 78 18 95/57 L 96 11/11/19 07:14 63 11/11/19 06:33 18 92 11/11/19 06:24 64 11/11/19 06:00 18 92 11/11/19 04:52 37.3 C 81 18 167/73 H 92 11/11/19 04:01 60 24 98 11/11/19 04:00 65 27 H 119/51 L 98 11/11/19 03:31 67 26 H 98 11/11/19 03:30 63 25 H 115/69 98 11/11/19 03:01 68 26 H 98 11/11/19 03:00 62 28 H 124/50 L 98 11/11/19 02:31 71 28 H 97 11/11/19 02:30 71 32 H 136/64 97 11/11/19 02:24 87 L 11/11/19 02:01 70 25 H 92 11/11/19 02:00 70 24 144/74 H 91 11/11/19 01:31 65 27 H 119/44 L 93 11/11/19 01:30 67 29 H 93 11/11/19 01:00 62 24 120/60 91 11/11/19 00:54 85 24 144/55 H 93 11/11/19 00:52 67 30 H 144/55 H 93 11/11/19 00:30 66 28 H 92/61 L 91 11/11/19 00:01 66 28 H 92 11/11/19 00:00 62 29 H 135/56 L 93 11/10/19 23:46 81 30 H 92 11/10/19 23:45 89 31 H 147/84 H 91 11/10/19 23:43 71 26 H 11/10/19 23:30 137/80 11/10/19 23:18 37.3 C (1) Fever Fever type: unspecified Qualified Code(s): R50.9 - Fever, unspecified
--- NOTE | 2019-11-11 12:24 | Medical Student Progress Note ---
Date of Service November 11, 2019 Assessment & Plan (1) Abdominal pain: The patient is an 79 y/o female with a pmhx of Afib w/ pacemaker, COPD, GERD, HTN, ORVILLE, and RLS who presents with shortness of breath and abdominal pain. 1) Abdominal Pain - possibly 2/2 ascending cholangitis - Improved on exam this morning from admission. - Leukocytosis, elevated t.bili 1.6, pro-ian 1.46, LFTs within normal limits, Lipase: 50, ALP: 180, R-factor 0.5 -Abd CT and liver U/S showing intra/extrahepatic pneumobilia and possible cirrhotic changes of the liver. -Continue IV Zosyn 2.275mg q8hrs -Follow pending blood culture results -ERCP today per GI recs 2) Shortness of breath - pulmonary fluid congestion vs COPD -Clinically improved this morning, O2 sat 92-94% on room air this morning. -Titrate O2 to 88-92% as necessary -CXR showed radiographic evidence of mild chronic pulmonary vascular congestion/fluid overload. -PFTs 11/2018 showed moderate airflow obstruction w/ FEV1/FVC ratio of 57% improving to 60% w/bronchodilator -Repeat PFTs are already scheduled in outpatient setting -Continue home COPD medications (Trelegy, Xopenex) -Continue home 20mg PO Lasix regimen - hold more aggressive diuresis in setting of risk of sepsis w/ possible cholangitis -COVID negative 3) ORVILLE - Continue CPAP at night, 7cm H20 4) GERD -Continue home famotidine 20mg PO 5) Hypothyroidism - s/p thyroidectomy for Graves dz -Continue Synthroid 125mg 6) Atrial fibrillation Rate controlled w/ metoprolol succinate 50mg PO Not anticoagulated 2/2 previous retroperitoneal hemorrhage 7) HTN Continue home metoprolol 50m PO and furosemide 20mg PO 8) Restless leg syndrome Continue ropinirole 1mg FEN/GI: NPO until procedure DVT prophylaxis: SCDs DNR/DNI Dispo: Med Tele Admission and Anticipated Discharge Date Admission Date: November 11, 2019 Supervising Attestation Medical Student Supervision Note: I was personally present during medical student patient encounter and independently interviewed and examined the patient and verified the irizarry history and physical, reviewed labs and image studies, discussed the case with Casimiro Hilliard and agree with the findings and care plan. s/p selina followed by intermittent bouts of cholangitis requiring ERCP with stone/sludge removal despite the use of Actigall. Most recent at [facility] 03/2019 for cholangitis and had ERCP with removal of sludge and pus. Subjective She states that her abdominal pain feels better this morning. She states that this episode feels different than her previous episodes that lead to ERCPs in the past Dec, Jan and Mar. She also feels that her breathing has improved and feels like she's breathing at her baseline. She denies any increased sputum production. Review of Systems Constitutional: + chills; no fever Respiratory: no dyspnea, no pain on inspiration and no stopping breathing during sleep Cardiovascular: + edema; no chest pain, no chest pain at rest, no dyspnea, no orthopnea and no paroxysmal nocturnal dyspnea Gastrointestinal: + abdominal pain and + constipation; no nausea, no vomiting and no change in stools Endocrine: no fatigue and no cold intolerance Physical Exam Constitutional: well developed; no acute distress resting comfortably in bed Eyes: PERRL, conjunctivae normal, anicteric sclerae +exophthalmos ENMT: external ear and nose normal, oropharynx normal Neck: trachea midline, s/p thyroidectomy Respiratory: normal respiratory effort bilateral crackles to midlevel of thorax Cardiovascular: Rate/Rhythm: regular rate and regular rhythm Heart Sounds: normal S1 and normal S2 Vessels: no JVD Extremities: + edema (1+) Gastrointestinal (Abdomen): BSx4, nontender to palpation. Skin: no rashes, warm and dry Neurologic: PERRL, EOMI, accommodation nl, no face palsy, no dysarthria Psychiatric: A+Ox3, euthymic affect Results & Data ([facility]) Vital Signs (Past 12 Hours) Vital Signs Temp Pulse Pulse Pulse Resp BP BP 11/11/19 11:33 36.9 C 80 20 96/58 L 11/11/19 08:50 11/11/19 07:59 37.5 C 78 18 95/57 L 11/11/19 07:14 63 11/11/19 06:33 18 11/11/19 06:24 64 11/11/19 06:00 18 11/11/19 04:52 37.3 C 81 18 167/73 H 11/11/19 04:01 60 24 11/11/19 04:00 65 27 H 119/51 L 11/11/19 03:31 67 26 H 11/11/19 03:30 63 25 H 115/69 11/11/19 03:01 68 26 H 11/11/19 03:00 62 28 H 124/50 L 11/11/19 02:31 71 28 H 11/11/19 02:30 71 32 H 136/64 11/11/19 02:24 11/11/19 02:01 70 25 H 11/11/19 02:00 70 24 144/74 H 11/11/19 01:31 65 27 H 119/44 L 11/11/19 01:30 67 29 H 11/11/19 01:00 62 24 120/60 11/11/19 00:54 85 24 144/55 H 11/11/19 00:52 67 30 H 144/55 H 11/11/19 00:30 66 28 H 92/61 L Pulse Ox 11/11/19 11:33 92 11/11/19 08:50 94 11/11/19 07:59 96 11/11/19 07:14 11/11/19 06:33 92 11/11/19 06:24 11/11/19 06:00 92 11/11/19 04:52 92 11/11/19 04:01 98 11/11/19 04:00 98 11/11/19 03:31 98 11/11/19 03:30 98 11/11/19 03:01 98 11/11/19 03:00 98 11/11/19 02:31 97 11/11/19 02:30 97 11/11/19 02:24 87 L 11/11/19 02:01 92 11/11/19 02:00 91 11/11/19 01:31 93 11/11/19 01:30 93 11/11/19 01:00 91 11/11/19 00:54 93 11/11/19 00:52 93 11/11/19 00:30 91
[2019-11-11] MEDS ORDERED: IOVERSOL 50ml IV ONE (13:20)
[2019-11-11] MEDS ORDERED: fentaNYL citrate 100 MCG/2 ML VIAL ONE (13:56)
[2019-11-11] MEDS ORDERED: SUCCINYLCHOLINE CHLORIDE 20 MG/ML 10 ML VIAL IV ONE (14:04)
[2019-11-11] MEDS ORDERED: PROPOFOL IV EMULSION 10 MG/ML 20 ML VIAL IV ONE (14:04)
[2019-11-11] MEDS ORDERED: LIDOCAINE HCL 2% 2 ML VIAL/AMP(20MG/ML) INFIL ONE (14:04)
[2019-11-11] MEDS ORDERED: ONDANSETRON INJ 2 MG/ML 2 ML VIAL ONE (14:04)
--- NOTE | 2019-11-11 14:10 | Anesthesiology Consultation ---
Date of Service November 11, 2019 Assessment & Plan (1) Encounter for pre-operative examination: Chart Review Chart Review: Acceptable Risk for Surgery and Patient NOT seen in Pre Admission Testing Covid 11/10/2019 was negative. Consults Requested none Teaching & Discussion Pacer check 08/21/2019: Device Check. Device Evaluation Procedure performed by: Yohannes Grant Device Battery: 2.75 Longevity: 23 months A% paced: 34 V% paced: 63 Impedence(omhs) A: 744 Impedence(omhs) RV: 701 Sensing(mV) A: 4.0 Sensing(mV) RV: 15.68 Threshold(V/mSec) A: A-flutter Threshold(V/mSec) RV: 1.125/.4 Threshold Testing Performed: Yes Setting(V/mSec) A: 1.5/.4 Setting(V/mSec) RV: 2.0/.4 Episode A % of time AF: 100% AF Changes/Comments: No changes History Surgery Operation Date: 11/11/19 15:30 Proposed Procedures p Endoscopic Retrograde Cholangiopancreatogram - Jarrett Rodrigues Height/Weight Height: 5 ft 6 in Weight: 94.2 kg Allergies Allergy/AdvReac Type Severity Reaction Status Date / Time No Known Drug Allergies Allergy Unknown Verified 11/11/19 01:41 Medications Home Medications Medication Instructions Recorded Confirmed Last Taken acetaminophen 500 mg tablet 500 mg PO Q4H PRN 12/03/18 11/11/19 04/06/19 19:00 1000 mg aspirin 81 mg tablet,delayed 81 mg PO QAM 12/03/18 11/11/19 11/10/19 release furosemide 20 mg tablet 20 mg PO MOTUWETHFRSA@0800 12/03/18 11/11/19 11/10/19 metoprolol succinate 50 mg 50 mg PO QAM 12/03/18 11/11/19 11/10/19 tablet,extended release 24 hr potassium chloride 20 mEq 20 meq PO QAM 12/03/18 11/11/19 11/10/19 tablet,extended release(part/cryst) ropinirole 1 mg tablet 1 mg PO QPM tab 12/03/18 11/11/19 11/09/19 famotidine 20 mg tablet 20 mg PO BID 12/16/18 11/11/19 11/10/19 gabapentin 100 mg capsule 100 mg PO HS 12/16/18 11/11/19 11/09/19 polyethylene glycol 3350 [Miralax] 17 gm PO DAILY PRN #30 ea 01/02/19 11/11/19 Unknown levothyroxine 125 mcg PO QAM 04/07/19 11/11/19 11/10/19 ascorbic acid (vitamin C) [Vitamin 250 mg PO DAILY #30 tab 04/09/19 11/11/19 11/10/19 C] fluticasone fur. 100 mcg-umeclid 1 puffs INHALATION QAM #60 ea 06/17/19 11/11/19 11/10/19 62.5 mcg-vilant 25 mcg inhalat.powder levalbuterol tartrate 45 2 puffs INH Q4H PRN #15 gm 06/17/19 11/11/19 Unknown mcg/actuation aerosol inhaler cholecalciferol (vitamin D3) 50 mcg PO DAILY 11/11/19 11/11/19 11/10/19 [Vitamin D3] ursodiol 300 mg PO BID 11/11/19 11/11/19 11/10/19 Active Medications Generic Name Dose Route Start Last Admin Trade Name Freq PRN Reason Stop Dose Admin Ascorbic Acid 250 mg 11/11/19 09:00 11/11/19 08:52 Ascorbic Acid 500 Mg Tab PO 12/11/19 08:59 250 mg DAILY JENNIFER Administration Aspirin 81 mg 11/11/19 09:00 11/11/19 08:53 Aspirin 81 Mg Ectab PO 12/11/19 08:59 81 mg QAM JENNIFER Administration Famotidine 20 mg 11/11/19 09:00 11/11/19 08:53 Famotidine 20 Mg Tab PO 12/11/19 08:59 20 mg BID JENNIFER Administration Fluticasone Furoate 1 puffs 11/11/19 09:00 11/11/19 08:54 Fluticasone Furoate 100mcg 14 Puffs/Inhaler INH 12/11/19 08:59 1 puffs QAM JENNIFER Administration Furosemide 20 mg 11/11/19 08:00 11/11/19 08:52 Furosemide 20 Mg Tab PO 12/11/19 07:59 20 mg MOTUWETHFRSA@0800 JENNIFER Administration Piperacillin Sod/Tazobactam 120 mls @ 30 mls/hr 11/11/19 06:00 11/11/19 13:38 Sod 4.5 gm/ Dextrose IV 11/21/19 05:59 30 mls/hr Q8H JENNIFER Administration Protocol Levothyroxine Sodium 125 mcg 11/11/19 06:30 11/11/19 06:03 Levothyroxine Sodium 125 Mcg Tablet PO 12/11/19 06:29 125 mcg DAILYBB JENNIFER Administration Metoprolol Succinate 50 mg 11/11/19 09:00 11/11/19 08:53 Metoprolol Succ 50mg Ext Rel Tab PO 12/11/19 08:59 Not Given QAM JENNIFER Potassium Chloride 20 meq 11/11/19 09:00 11/11/19 08:53 Potassium Chloride 20 Meq Tabcr PO 12/11/19 08:59 20 meq QAM JENNIFER Administration Umeclidinium/Vilanterol 1 puffs 11/11/19 09:00 11/11/19 08:54 Umeclidinium/Vilanterol 62.5/25mcg 7 Puffs/Inhaler INH 12/11/19 08:59 1 puffs DAILY JENNIFER Administration Ursodiol 300 mg 11/11/19 09:00 11/11/19 08:55 Ursodiol 300 Mg Cap PO 12/11/19 08:59 300 mg BID JENNIFER Administration Vitamin D 2,000 units 11/11/19 09:00 11/11/19 08:52 Cholecalciferol 1,000 Units 25 Mcg Tab PO 12/11/19 08:59 2,000 units DAILY JENNIFER Administration NPO Date Last Intake of Fluids: 11/10/19 Last Intake of Fluids Comment: chips/sips 11/10 AM Date Last Intake of Solids: 11/10/19 Time Last Intake of Solids: 09:00 Past Medical History Medical History Atrial fibrillation Common bile duct (CBD) obstruction COPD (chronic obstructive pulmonary disease) GERD (gastroesophageal reflux disease) Hypertension Hypothyroidism associated with surgical procedure Obstructive sleep apnea Pacemaker Pulmonary emphysema Restless leg syndrome Solitary lung nodule Exercise / Class Metabolic Activity III < 4 Walking/Shop/Light housework Past Family History Family History Other Cancer Past Surgical History Surgical History History of ERCP 12/30/18 Grade 1 view Mac 3 blade S/P cholecystectomy S/P thyroidectomy ERCP 04/08/2019: GETA. MAC 3, grade 1 view. No issues. Social History Smoking Status: Former smoker tobacco type: cigarettes Smoking cigarettes per day: 20 Hx Alcohol Use: No Hx Substance Use: No Physical Exam Vital Signs Last Vital Signs Temp 36.9 C 11/11/19 11:33 Pulse 80 11/11/19 11:33 Resp 20 11/11/19 11:33 BP 96/58 L 11/11/19 11:33 Pulse Ox 92 11/11/19 11:33 Testing Laboratory Results 11/11/19 09:48 11/11/19 09:48 PT 11.0 Seconds (9.0-12.0) 11/10/19 20:41 INR 1.0 (0.9-1.1) 11/10/19 20:41 APTT 27.6 Seconds (21.0-31.0) 11/10/19 20:41 Urine Color Yellow 11/10/19 22:22 Urine Appearance Clear (Clear) 11/10/19 22:22 Urine pH 6.5 (4.5-7.5) 11/10/19 22:22 Ur Specific [place] 1.010 (1.000-1.030) 11/10/19 22:22 Urine Protein Negative (Negative) 11/10/19 22:22 Urine Glucose (UA) Negative (Negative) 11/10/19 22:22 Urine Ketones Negative (Negative) 11/10/19 22:22 Urine Nitrite Negative (Negative) 11/10/19 22:22 Ur Leukocyte Esterase Trace (Negative) H 11/10/19 22:22 Urine WBC (Auto) 0 /hpf (0-5) 11/10/19 22:22 Urine RBC (Auto) 0-4 /hpf (0-4) 11/10/19 22:22 U Hyaline Cast (Auto) 1-5 /lpf (0-5) 11/10/19 22:22 U Epithel Cells (Auto) >30 /lpf (0-5) H 11/10/19 22:22 Urine Bacteria (Auto) Negative (Negative) 11/10/19 22:22 Electrocardiogram Date: 11/10/19 HR 76. Atrial flutter with variable A-V block Left anterior fascicular block Minimal voltage criteria for LVH, may be normal variant Nonspecific T wave abnormality Abnormal ECG When compared with ECG of 08-APR-2019 13:49, Atrial flutter has replaced Electronic ventricular pacemaker Chest X-Ray Date: 11/10/19 XR chest 1V portable CLINICAL HISTORY: SEPSIS COMPARISON STUDY: March 2019 FINDINGS: The heart is enlarged. 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 There is radiographic evidence of mild pulmonary vascular congestion/fluid overload. There is chronic right-sided pleural thickening. There is no lobar consolidation.[ IMPRESSION: 1. Cardiomegaly and radiographic evidence of mild chronic pulmonary vascular congestion/fluid overload. Stable right-sided pleural thickening. 2. No evidence of acute parenchymal consolidatio Echocardiogram Date: 12/30/18 Mild LVH LV systolic function is normal. RA is mildly dilated. RV systolic pressure is elevated at 40-50mmHg.
--- NOTE | 2019-11-11 14:55 | History & Physical Report ---
Date of Service November 11, 2019 Assessment & Plan Admission and Anticipated Discharge Date Admission Date: November 11, 2019 History of Present Illness Chief Complaint: Cholangitis Primary Care Provider: Lg Rodriguez For ERCP Allergies Allergy/AdvReac Type Severity Reaction Status Date / Time No Known Drug Allergies Allergy Unknown Verified 11/11/19 01:41 Home Medications Home Medications Medication Instructions Recorded Confirmed Type acetaminophen 500 mg tablet 500 mg PO Q4H PRN 12/03/18 11/11/19 History aspirin 81 mg tablet,delayed 81 mg PO QAM 12/03/18 11/11/19 History release furosemide 20 mg tablet 20 mg PO MOTUWETHFRSA@0800 12/03/18 11/11/19 History metoprolol succinate 50 mg 50 mg PO QAM 12/03/18 11/11/19 History tablet,extended release 24 hr potassium chloride 20 mEq 20 meq PO QAM 12/03/18 11/11/19 History tablet,extended release(part/cryst) ropinirole 1 mg tablet 1 mg PO QPM tab 12/03/18 11/11/19 History famotidine 20 mg tablet 20 mg PO BID 12/16/18 11/11/19 History gabapentin 100 mg capsule 100 mg PO HS 12/16/18 11/11/19 History polyethylene glycol 3350 [Miralax] 17 gm PO DAILY PRN #30 ea 01/02/19 11/11/19 Rx levothyroxine 125 mcg PO QAM 04/07/19 11/11/19 History ascorbic acid (vitamin C) [Vitamin 250 mg PO DAILY #30 tab 04/09/19 11/11/19 Rx C] fluticasone fur. 100 mcg-umeclid 1 puffs INHALATION QAM #60 ea 06/17/19 11/11/19 Rx 62.5 mcg-vilant 25 mcg inhalat.powder levalbuterol tartrate 45 2 puffs INH Q4H PRN #15 gm 06/17/19 11/11/19 Rx mcg/actuation aerosol inhaler cholecalciferol (vitamin D3) 50 mcg PO DAILY 11/11/19 11/11/19 History [Vitamin D3] ursodiol 300 mg PO BID 11/11/19 11/11/19 History Past Med/Surg History Medical History Atrial fibrillation Common bile duct (CBD) obstruction COPD (chronic obstructive pulmonary disease) GERD (gastroesophageal reflux disease) Hypertension Hypothyroidism associated with surgical procedure Obstructive sleep apnea Pacemaker Pulmonary emphysema Restless leg syndrome Solitary lung nodule Surgical History History of ERCP 12/30/18 Grade 1 view Mac 3 blade S/P cholecystectomy S/P thyroidectomy Family History Other Cancer Social History Smoking Status: Former smoker Tobacco Type: Cigarettes Cigarettes Per Day: 20; Second Hand Exposure: No; Hx Alcohol Use: No Hx Substance Use: No Preferred Language: Romanian Communication Ability: Effective Customer Loyalty Representative Required: No Beliefs That Will Affect Care: None marital status: Current Living Situation: Alone current occupational status: retired Feels Safe at Home: Yes Assistive Devices: Denture - Upper and Walker Physical Exam Constitutional: + obese Respiratory: normal respiratory effort Cardiovascular: Rate/Rhythm: regular rate and regular rhythm Gastrointestinal (Abdomen): Percussion/Palpation: abdomen soft Results & Data ([facility]) Vital Signs (Past 12 Hours) Vital Signs Temp Pulse Pulse Pulse Resp BP BP 11/11/19 11:33 36.9 C 80 20 96/58 L 11/11/19 08:50 11/11/19 07:59 37.5 C 78 18 95/57 L 11/11/19 07:14 63 11/11/19 06:33 18 11/11/19 06:24 64 11/11/19 06:00 18 11/11/19 04:52 37.3 C 81 18 167/73 H 11/11/19 04:01 60 24 11/11/19 04:00 65 27 H 119/51 L 11/11/19 03:31 67 26 H 11/11/19 03:30 63 25 H 115/69 11/11/19 03:01 68 26 H 11/11/19 03:00 62 28 H 124/50 L Pulse Ox 11/11/19 11:33 92 11/11/19 08:50 94 11/11/19 07:59 96 11/11/19 07:14 11/11/19 06:33 92 11/11/19 06:24 11/11/19 06:00 92 11/11/19 04:52 92 11/11/19 04:01 98 11/11/19 04:00 98 11/11/19 03:31 98 11/11/19 03:30 98 11/11/19 03:01 98 11/11/19 03:00 98
[2019-11-11] MEDS ORDERED: ATROPINE SULFATE 0.1 MG/ML 10ML SYR IV PRN (15:08)
[2019-11-11] MEDS ORDERED: fentaNYL citrate 100 MCG/2 ML VIAL IV PRN (15:08)
[2019-11-11] MEDS ORDERED: ePHEDrine sulfate 50 MG/ML AMP IV PRN (15:08)
[2019-11-11] MEDS ORDERED: INDOMETHACIN 50 MG SUPP PR ONE (15:14)
--- NOTE | 2019-11-11 15:53 | GI REPORT ---
Patient Name: Marianne Zhang Procedure Date: 11/11/2019 3:19 PM Date of : 1940 Admit Type: Inpatient Age: 79 Gender: Female Attending MD: Jarrett Rodrigues MD Procedure: ERCP Providers: Jarrett Rodrigues MD Referring MD: Angie Elliott Indications: Suspected ascending cholangitis Medicines: General Anesthesia Complications: No immediate complications. Estimated Blood Loss: Estimated blood loss: none. Procedure: Pre-Anesthesia Assessment: - Prior to the procedure, a History and Physical was performed, and patient medications, allergies and sensitivities were reviewed. The patient's tolerance of previous anesthesia was reviewed. - The risks and benefits of the procedure and the sedation options and risks were discussed with the patient. All questions were answered and informed consent was obtained. After obtaining informed consent, the scope was passed under direct vision. Throughout the procedure, the patient's blood pressure, pulse, and oxygen saturations were monitored continuously. The scope was introduced through the mouth, and advanced to the duodenum and used to inject contrast into the bile duct. The ERCP was accomplished without difficulty. The patient tolerated the procedure well. Findings: The major papilla was adjacent to a diverticulum. The biliary tree was swept with a 15 mm balloon starting at the upper third of the main bile duct. One stone was removed. No stones remained. Impression: - The major papilla was adjacent to a diverticulum. - Choledocholithiasis was found. Complete removal was accomplished by balloon extraction. - The biliary tree was swept. Recommendation: - Return patient to [facility] for [facility] care. Jarrett Rodrigues M.D. Jarrett Rodrigues MD 11/11/2019 3:53:04 PM This report has been signed electronically. Note Initiated On: 11/11/2019 3:19 PM Number of Addenda: 0 I attest to the content of the Intraoperative Record and orders documented therein, exceptions below {[id number]}
--- NOTE | 2019-11-11 16:09 | Fluoroscopy Report ---
[place] ERCP biliary ductal CLINICAL HISTORY: ERCP COMPARISON STUDY: Abdominal ultrasound 11/11/2019. FLUOROSCOPY TIME: 1 minute and 34 seconds. FINDINGS: The ampulla was cannulated and a guidewire was placed in the common bile duct. Contrast was injected. A balloon sweep was performed. The common bile duct was distended. IMPRESSION: Fluoroscopy provided for ERCP. ACT 112: Negative or not required by law. Electronically signed by: Nolan Strange M.D. 11/11/2019 4:08 PM
--- NOTE | 2019-11-11 16:14 | Operative Report (OR) ---
DATE OF OPERATION: 11/11/2019 The patient underwent an ERCP today for presumed cholangitis. The patient's papilla was adjacent to a large diverticulum and covered with a mucosal fold. The common bile duct was cannulated blindly. There is a rather large sphincterotomy. The common bile duct is dilated. It was injected and there was a suspicion of a filling defect distally in the duct. A 15 mm balloon was advanced beyond up to the upper third of the common bile duct and inflated to 15 mm and withdrawn 3 times. A small stone was removed with the first pass. Subsequent injection to the bile duct appeared to be clear. I attest to the content of the Intraoperative Record and any orders documented therein. Any exception s are noted below.
[2019-11-11] MEDS ORDERED: ACETAMINOPHEN 1000 MG/100 ML IV IV ONE (16:39)
[2019-11-11] MEDS ORDERED: ACETAMINOPHEN 1,000 MG/100 ML VIAL IV STA (16:45)
--- NOTE | 2019-11-11 16:50 | Anesthesiology Progress Note ---
Date of Service November 11, 2019 Anesthesia Post Procedure Vital Signs Vital Signs: Temp Pulse Pulse Pulse Pulse Resp BP 11/11/19 16:40 38.6 C H 66 22 11/11/19 16:30 38 C H 68 18 11/11/19 16:20 65 20 11/11/19 16:10 77 15 11/11/19 16:02 36.6 C 78 16 11/11/19 14:59 37.7 C H 66 20 11/11/19 11:33 36.9 C 80 20 11/11/19 08:50 11/11/19 07:59 37.5 C 78 18 11/11/19 07:14 63 11/11/19 06:33 18 11/11/19 06:24 64 11/11/19 06:00 18 11/11/19 04:52 37.3 C 81 18 11/11/19 04:01 60 24 11/11/19 04:00 65 27 H 119/51 L 11/11/19 03:31 67 26 H 11/11/19 03:30 63 25 H 115/69 11/11/19 03:01 68 26 H 11/11/19 03:00 62 28 H 124/50 L 11/11/19 02:31 71 28 H 11/11/19 02:30 71 32 H 136/64 11/11/19 02:24 11/11/19 02:01 70 25 H 11/11/19 02:00 70 24 144/74 H 11/11/19 01:31 65 27 H 119/44 L 11/11/19 01:30 67 29 H 11/11/19 01:00 62 24 120/60 11/11/19 00:54 85 24 144/55 H 11/11/19 00:52 67 30 H 144/55 H 11/11/19 00:30 66 28 H 92/61 L 11/11/19 00:01 66 28 H 11/11/19 00:00 62 29 H 135/56 L 11/10/19 23:46 81 30 H 11/10/19 23:45 89 31 H 147/84 H 11/10/19 23:43 71 26 H 11/10/19 23:30 137/80 11/10/19 23:18 37.3 C 11/10/19 23:01 66 24 11/10/19 23:00 66 30 H 136/68 11/10/19 22:31 70 26 H 11/10/19 22:30 65 31 H 129/61 11/10/19 22:01 66 26 H 11/10/19 22:00 63 27 H 126/70 11/10/19 21:31 70 21 11/10/19 21:30 63 25 H 131/61 11/10/19 21:01 69 23 11/10/19 21:00 69 22 132/65 11/10/19 20:37 11/10/19 20:31 80 32 H 11/10/19 20:30 81 29 H 143/74 H 11/10/19 20:01 76 29 H 11/10/19 20:00 81 20 147/86 H 11/10/19 19:39 73 24 11/10/19 19:35 74 25 H 137/70 11/10/19 19:30 37.8 C H 82 20 137/70 BP Pulse Ox 11/11/19 16:40 117/51 L 95 11/11/19 16:30 132/53 L 93 11/11/19 16:20 139/48 L 100 11/11/19 16:10 150/69 H 97 11/11/19 16:02 145/113 H 98 11/11/19 14:59 143/63 H 93 11/11/19 11:33 96/58 L 92 11/11/19 08:50 94 11/11/19 07:59 95/57 L 96 11/11/19 07:14 11/11/19 06:33 92 11/11/19 06:24 11/11/19 06:00 92 11/11/19 04:52 167/73 H 92 11/11/19 04:01 98 11/11/19 04:00 98 11/11/19 03:31 98 11/11/19 03:30 98 11/11/19 03:01 98 11/11/19 03:00 98 11/11/19 02:31 97 11/11/19 02:30 97 11/11/19 02:24 87 L 11/11/19 02:01 92 11/11/19 02:00 91 11/11/19 01:31 93 11/11/19 01:30 93 11/11/19 01:00 91 11/11/19 00:54 93 11/11/19 00:52 93 11/11/19 00:30 91 11/11/19 00:01 92 11/11/19 00:00 93 11/10/19 23:46 92 11/10/19 23:45 91 11/10/19 23:43 11/10/19 23:30 11/10/19 23:18 11/10/19 23:01 99 11/10/19 23:00 99 11/10/19 22:31 99 11/10/19 22:30 99 11/10/19 22:01 96 11/10/19 22:00 97 11/10/19 21:31 97 11/10/19 21:30 97 11/10/19 21:01 97 11/10/19 21:00 96 11/10/19 20:37 96 11/10/19 20:31 95 11/10/19 20:30 96 11/10/19 20:01 96 11/10/19 20:00 95 11/10/19 19:39 96 11/10/19 19:35 96 11/10/19 19:30 90 Transfer of Care Handoff Completed per policy Notes Mental Status: alert / awake / arousable and participated in evaluation Patient Amnestic to Procedure: Yes Nausea / Vomiting: adequately controlled Pain: adequately controlled Airway Patency, RR, SpO2: stable & adequate BP & HR: stable & adequate Hydration State: stable & adequate Anesthetic Complications: no major complications apparent and Pt Satisfied with anesthetic care
[2019-11-11] MEDS ORDERED: GABAPENTIN 100 MG CAP PO SCH (21:00)
[2019-11-11] MEDS ORDERED: ROPINIROLE HCL 1 MG TABLET PO SCH (21:00)
[2019-11-12] MEDS: PIPERACILLIN/TAZOBACTAM 4.5 GM in DEXTROSE 5% 100 ML IV SCH (06:30)
[2019-11-12] MEDS: LEVOTHYROXINE SODIUM 125 MCG TABLET PO SCH (06:30)
[2019-11-12] MEDS: ASPIRIN 81 MG ECTAB PO SCH (08:00)
[2019-11-12] MEDS: METOPROLOL SUCC 50MG EXT REL TAB PO SCH (08:01)
[2019-11-12] MEDS: FAMOTIDINE 20 MG TAB PO SCH (08:01)
[2019-11-12] MEDS: FUROSEMIDE 20 MG TAB PO SCH (08:02)
[2019-11-12] MEDS: CHOLECALCIFEROL 1,000 UNITS 25 MCG TAB PO SCH (08:02)
[2019-11-12] MEDS: ASCORBIC ACID 500 MG TAB PO SCH (08:02)
[2019-11-12] MEDS: POTASSIUM CHLORIDE 20 MEQ TABCR PO SCH (08:02)
[2019-11-12] MEDS: UMECLIDINIUM/VILANTEROL 62.5/25MCG 7 PUFFS/INHALER INH SCH (08:03)
[2019-11-12] MEDS: FLUTICASONE FUROATE 100MCG 14 PUFFS/INHALER INH SCH (08:03)
[2019-11-12] MEDS: ursodioL 300 MG CAP PO SCH (08:04)
[2019-11-12 08:36] LABS: Basophils # (auto) 0.03 K/uL (0-0.2); Basophils % (auto) 0.4 %; Eosinophils # (auto) 0.24 K/uL (0-0.5); Eosinophils % (auto) 3.2 %; Hematocrit (blood only) 40.9 % (37-47); Hemoglobin 13.2 g/dL (12.0-16.0); Immature Granulocytes # (auto) 0.01 K/uL (0.00-0.02); Immature Granulocytes % (auto) 0.1 %; Lymphocytes # (auto) 0.42 K/uL (1.2-3.4); Lymphocytes % (auto) 5.6 %; Mean Corpuscular Hemoglobin 31.9 pg (25-34); Mean Corpuscular Hgb Conc 32.3 g/dL (32-36); Mean Corpuscular Volume 98.8 fL (80-100); Mean Platelet Volume 9.9 fL (7.4-10.4); Monocytes # (auto) 0.61 K/uL (0.11-0.59); Monocytes % (auto) 8.2 %; Neutrophils # (auto) 6.13 K/uL (1.4-6.5); Neutrophils % (auto) 82.5 %; Platelet Count 241 K/uL (130-400); RDW Coefficient of Variation 13.2 % (11.5-14.5); RDW Standard Deviation 47.7 fL (36.4-46.3); Red Blood Count 4.14 M/uL (4.2-5.4); White Blood Count 7.44 K/uL (4.8-10.8)
[2019-11-12 09:02] LABS: Albumin Level 2.9 gm/dl (3.4-5.0); BUN Creatinine Ratio 12.7 (10-20); Calcium 9.1 mg/dl (8.5-10.1); Creatinine Clr Calc Pharmacy 47.6 ml/min; Est GFR (African American) 55.1; Est GFR (Non-African American) 47.6; Potassium 3.6 mmol/L (3.5-5.1)
[2019-11-12 09:16] LABS: Albumin Globulin Ratio 0.7 (0.9-2); Bilirubin,Total 0.9 mg/dl (0.2-1); Globulin 3.9 gm/dl (2.5-4.0); Thyroid Stimulating Hormone 0.632 uIu/ml (0.300-4.500); Total Protein 6.8 gm/dl (6.4-8.2)
--- NOTE | 2019-11-12 09:22 | Discharge Summary ---
Date of Service November 12, 2019 Admission HPI Per Admitting Provider For ERCP Discharge Data Allergies Allergy/AdvReac Type Severity Reaction Status Date / Time No Known Drug Allergies Allergy Unknown Verified 11/11/19 01:41 Consultations 11/11/19 01:14 ED Decision to Admit Stat 11/11/19 04:51 Consult Gastroenterology Routine Procedures Performed Operation Date: 11/11/19 15:30 Actual Procedures p Endoscopic Retrograde Cholangiopancreatogram(Not Applicable) - Jarrett Rodrigues Ordered Studies 11/10/19 23:15 CT abd pelvis IV con only Urgent 11/11/19 [place] ERCP biliary ductal Routine 11/11/19 04:51 US liver Urgent Hospital Course (1) Epigastric abdominal pain: By CMS guidelines, a determination that the admission or continued stay is not medically necessary has been made by a member of the UR committee and a physician for this hospital stay, therefore a Code 44 will be completed and the Inpatient admission will be changed to outpatient. Discharge Plan Discharge Items Reason For Visit: cholangitis Follow-up/Referrals: Lg Rodriguez MD [Primary Care Provider] - Stand-Alone Forms: [facility] Medications and DC Order Prescriptions: No Action acetaminophen 500 mg tablet 500 mg PO Q4H PRN (Reason: Pain) RF: 0 aspirin 81 mg tablet,delayed release (DR/EC) 81 mg PO QAM RF: 0 metoprolol succinate 50 mg tablet extended release 24 hr 50 mg PO QAM RF: 0 potassium chloride 20 mEq tablet,ER particles/crystals 20 meq PO QAM RF: 0 ropinirole 1 mg tablet 1 mg PO QPM RF: 0 furosemide 20 mg tablet 20 mg PO MOTUWETHFRSA@0800 RF: 0 Trelegy Ellipta 100-62.5-25 mcg blister with device 1 puffs inhalation QAM Qty: 60 RF: 11 levalbuterol tartrate [Xopenex HFA] 45 mcg/actuation HFA aerosol inhaler 2 puffs INH Q4H PRN (Reason: Shortness Of Breath) Qty: 15 RF: 11 famotidine 20 mg tablet 20 mg PO BID RF: 0 gabapentin 100 mg capsule 100 mg PO HS RF: 0 polyethylene glycol 3350 [Miralax] 17 gram powder in packet 17 gm PO DAILY PRN (Reason: constipation) Qty: 30 RF: 0 levothyroxine 125 mcg Tablet 125 mcg PO QAM RF: 0 ascorbic acid (vitamin C) [Vitamin C] 250 mg tablet 250 mg PO DAILY Qty: 30 RF: 0 ursodiol 300 mg capsule 300 mg PO BID RF: 0 cholecalciferol (vitamin D3) [Vitamin D3] 50 mcg (2,000 unit) Tablet 50 mcg PO DAILY RF: 0 Admission Data Admit Date/Time: 11/11/19 03:21 Attending Provider: Angie Elliott Admit Provider: Andrés Martinez Primary Care Provider: Lg Rodriguez Other Providers: Amy Luther ; Jarrett Rodrigues
--- NOTE | 2019-11-12 09:46 | Gastroenterology Progress Note ---
Date of Service November 12, 2019 Assessment & Plan (1) Choledocholithiasis: (2) Cholangitis: Patient is feeling significantly better. Appears medicine plan is to discharge today. Will arrange for GI hospital follow-up appointment next week. Patient aware. Admission and Anticipated Discharge Date Admission Date: November 11, 2019 Supervising Physician Co-Signing Physician Notes I saw and examined patient and reviewed Bernie Beaver note above and agree except as noted below. Pt denies abd pain and is tolerating po well. Hospitalist DCing patient today. abd pos bs soft, no guarding nor rebound cholangitis--clinically stable---complete course of abx outpt CBD obstruction--s/p ERCP with stone removal. continue ursodiol. Discussed with patient that [facility]. Will sign off. Please call for further questions. Subjective Patient reports that she is feeling significantly better. ERCP performed by Dr. Rodrigues yesterday demonstrated choledocholithiasis with one stone removal. Denies abdominal pain, nausea, vomiting. Tolerating liquid diet this morning without difficulty. Reports + flatus. Last bowel movement 2 days ago. Denies melena or hematochezia. States she is ready for discharge. Review of Systems Review of Systems: All systems reviewed & are unremarkable except as noted in Subjective Physical Exam Constitutional: WD/WN, vitals as above Eyes: PERRL, conjunctivae normal, anicteric sclerae ENMT: external ear and nose normal. Neck: normal visual inspection and trachea midline Respiratory: normal respiratory effort, lungs clear to auscultation Cardiovascular: RRR, no murmur, no edema Gastrointestinal (Abdomen): Inspection/Auscultation: abdomen normal to inspection and normal bowel sounds; abdomen not distended Percussion/Palpation: abdomen soft; abdomen nontender pos bs, soft, no guarding nor rebound Skin: no rashes, warm and dry Neurologic: PERRL, EOMI, accommodation nl, no face palsy, no dysarthria Psychiatric: A+Ox3, euthymic affect Results & Data ([facility]) Vital Signs (Past 12 Hours) Vital Signs Temp Pulse Pulse Resp BP Pulse Ox 11/12/19 07:30 36.9 C 79 18 153/79 H 97 11/12/19 07:09 37 C 70 16 121/75 96 11/12/19 03:00 36.8 C 60 20 95/57 L 97 11/11/19 23:59 66 11/11/19 23:43 36.7 C 64 18 114/69 95 Laboratory Results - last 24 hr 11/11/19 11/11/19 11/12/19 09:48 09:48 07:41 WBC 9.80 7.44 RBC 4.31 4.14 L Hgb 14.1 13.2 Hct 42.2 40.9 MCV 97.9 98.8 MCH 32.7 31.9 MCHC 33.4 32.3 RDW Std Deviation 46.6 H 47.7 H RDW Coeff of Agusto 13.0 13.2 Plt Count 249 241 MPV 9.7 9.9 Immature Gran % (Auto) 0.3 0.1 Neut % (Auto) 83.7 82.5 Lymph % (Auto) 7.2 5.6 [place] % (Auto) 7.9 8.2 Eos % (Auto) 0.7 3.2 Baso % (Auto) 0.2 0.4 Neut # (Auto) 8.20 H 6.13 Lymph # (Auto) 0.71 L 0.42 L [place] # (Auto) 0.77 H 0.61 H Eos # (Auto) 0.07 0.24 Baso # (Auto) 0.02 0.03 Immature Gran # (Auto) 0.03 H 0.01 Sodium 138 Potassium 3.8 Chloride 105 Carbon Dioxide 26 Anion Gap 8.0 BUN 16 Creatinine 1.19 Est Cr Clr Drug Dosing 42.9 Est GFR ( Amer) 49.6 Est GFR (Non-Af Amer) 42.8 BUN/Creatinine Ratio 13.1 Glucose 116 H Lactate Calcium 9.0 Total Bilirubin 2.2 H AST 26 ALT 25 Alkaline Phosphatase 165 H Total Protein 7.4 Albumin 3.2 L Globulin 4.2 H Albumin/Globulin Ratio 0.8 L Lipase 50 L TSH 11/12/19 11/12/19 07:41 07:41 WBC RBC Hgb Hct MCV MCH MCHC RDW Std Deviation RDW Coeff of Agusto Plt Count MPV Immature Gran % (Auto) Neut % (Auto) Lymph % (Auto) [place] % (Auto) Eos % (Auto) Baso % (Auto) Neut # (Auto) Lymph # (Auto) [place] # (Auto) Eos # (Auto) Baso # (Auto) Immature Gran # (Auto) Sodium 141 Potassium 3.6 Chloride 107 Carbon Dioxide 25 Anion Gap 8.0 BUN 14 Creatinine 1.09 Est Cr Clr Drug Dosing 47.6 Est GFR ( Amer) 55.1 Est GFR (Non-Af Amer) 47.6 BUN/Creatinine Ratio 12.7 Glucose 105 H Lactate 0.7 Calcium 9.1 Total Bilirubin 0.9 D AST 26 ALT 21 Alkaline Phosphatase 135 H Total Protein 6.8 Albumin 2.9 L Globulin 3.9 Albumin/Globulin Ratio 0.7 L Lipase 50 L TSH 0.632
--- NOTE | 2019-11-12 12:54 | Discharge Summary ---
Date of Service November 12, 2019 Admission HPI Per Admitting Provider History of Present Illness Chief Complaint: SOB Primary Care Provider: Lg Rodriguez 79-year-old female with past medical history A. fib, COPD, GERD, hypertension, [place], RLS presents with concerns of shortness of breath and abdominal pain. Patient was resting earlier this afternoon and experienced shortness of breath that came on all of a sudden and lasted for about 30 minutes after which patient felt better. Patient states that she has a history of CHF (although there is no history of CHF and any notes including cardiology notes) and that this feels similar to exacerbation she had 4 years ago. Patient also notes her abdominal pain that feels similar to what she had last March. Pt with long history of pancreatitis, retained gallstones and recently within the last year required transfer to [facility] for ERCP. Patient additionally states that she had a fever at about 7 PM 102 F, which prompted ER visit. Associated chills, edema in legs. Patient otherwise denies any nausea, vomiting, diarrhea, diaphoresis, chest pain, cough, rhinorrhea, urinary symptoms, known sick contacts or recent travel anywhere. Patient with no other acute concerns or complaints. Pertinent labs: WBC 13.37, creatinine 1.22, T bili 1.6, alk phos 180 pro-Ian 1.46, COVID negative. LA 1.0 WNL, Lipase 50 not elevated, LFTs WNL Chest x-ray: Cardiomegaly and radiographic evidence of mild chronic pulmonary vascular congestion/fluid overload. Stable right-sided pleural thickening. No evidence of acute parenchymal consolidation Abdomen pelvis CT ([facility]): Question cirrhotic liver morphology. Intrahepatic pneumobilia. Areas of irregular low-density involving the right hepatic dome lesion may represent scarring. No appendicitis, colitis, diverticulitis or bowel obstruction. Distal colonic diverticulosis. No adnexal masses, free air or free fluid. ER course: IV Zosyn 4.5 mg, NSS Admission Exam Per Admitting Provider Physical Exam Constitutional: + ill appearing Eyes: PERRL, conjunctivae normal, anicteric sclerae ENMT: Nose: + dry nasal mucous membranes Respiratory: normal respiratory effort; no respiratory distress and no labored breathing Auscultation: + crackles (Bases bilaterally) Cardiovascular: RRR, no murmur, no edema Chest (Breasts): Chest: + pacemaker Gastrointestinal (Abdomen): Percussion/Palpation: + abdomen tender (Right upper quadrant extending medially); no guarding neg erazo's Skin: no rashes, warm and dry Psychiatric: A+Ox3, euthymic affect Principal Diagnosis Choledocholithiasis, cholangitis Discharge Exam Constitutional Well appearing woman in no acute distress. Eyes exophthalmos ENMT external ear and nose normal, oropharynx normal Respiratory Slight inspiratory rales bilaterally, no wheezes, or rhonchi Cardiovascular Regular rate and rhythm, no murmurs rubs or extra heart sounds. Gastrointestinal (Abdomen) normal bowel sounds, soft, nontender, no hepatosplenomegaly Musculoskeletal no cyanosis or clubbing, extremities motor strength 5/5 Skin no rashes, warm and dry Neurologic PERRL, EOMI, accommodation nl, no face palsy, no dysarthria Psychiatric A+Ox3, euthymic affect Discharge Data Allergies Allergy/AdvReac Type Severity Reaction Status Date / Time No Known Drug Allergies Allergy Unknown Verified 11/11/19 01:41 Consultations 11/11/19 01:14 ED Decision to Admit Stat 11/11/19 04:51 Consult Gastroenterology Routine Procedures Performed Operation Date: 11/11/19 15:30 Actual Procedures p Endoscopic Retrograde Cholangiopancreatogram(Not Applicable) - Jarrett Rodrigues Ordered Studies 11/10/19 23:15 CT abd pelvis IV con only Urgent 11/11/19 [place] ERCP biliary ductal Routine 11/11/19 04:51 liver Urgent Hospital Course (1) Cholangitis: The patient is an 79 y/o female with a pmhx of Afib w/ pacemaker, COPD, GERD, HTN, [place], and RLS, s/p selina followed by intermittent bouts of cholangitis requiring ERCP with stone/sludge removal despite the use of Actigall. Most recent at [facility] 03/2019 for cholangitis and had ERCP. During this admission she presented with shortness of breath and abdominal pain. 1) Cholangitis - Leukocytosis (WBC 13), elevated t.bili 1.6, pro-ian 1.46, LFTs within normal limits, Lipase: 50, ALP: 180, R-factor 0.5 -Abd CT and liver U/S showing intra/extrahepatic pneumobilia (felt to be secondary to previous ERCPs) and possible cirrhotic changes of the liver. -WBC improved with addition of IV Zosyn. -She underwent ERCP with stone removal leading to symptomatic improvement as well as Tbili from 2.2 -> 0.9. No changes in LFTs or lipase -D/C w/ five days of Augmentin 825/125 BID PO -F/U LFTs and CBC in one week 2) Shortness of breath - pulmonary fluid congestion vs COPD Presented SOB with CXR showing evidence of mild chronic pulmonary vascular congestion/fluid overload. Stated that she felt back to her baseline at time of discharge. -No O2 therapy needed during the day. -Repeat PFTs are already scheduled in the outpatient setting -Continue home COPD medications (Trelegy, Xopenex) -COVID negative Total Time Total Time Spent Total Time Spent (In Minutes): See attending attestation. Discharge Plan Discharge Items Patient Disposition: Home - Self-Care Reason For Visit: cholangitis Discharge Diagnosis: choledocholithiasis s/p ERCP Activity: Per Instructions section Non-emergency contact: Primary Care Provider and Chemistry Technical Officer Call non-emergency contact if: your symptoms worsen and you have a fever Follow-up/Referrals: Lg Rodriguez MD [Primary Care Provider] - 11/23/19 10:45 am (You have an appt with your PCP on Nov 22 at 1045am. ) Diet: Regular Addtl Attending Provider Instructions: Abdominal pain You came to the hospital for abdominal pain and shortness of breath. On imaging there was concern for obstruction of your bile duct. Gastroenterology (GI) was consulted and they performed an ERCP (scope) where a stone was seen obstructing you bile duct which they removed. You have had improvement with your abdominal pain and had tolerated a diet. We will need to have you take 5 days of oral antibiotics. Shortness of breath You have a history of obstructive lung disease and when you came in to the hospital you were short of breath. You were on oxygen overnight, but were doing well on room air this morning. You will need to continue to follow with your primary care doctor to further evaluate and treat you shortness of breath. Follow up You will need to have follow up with Gastroenterology (GI) and primary doctor in the next week. Return precautions If you develop fevers, worsening shortness of breath or worsening abdominal pain we will want you to call or come in to get evaluated. Pending Studies at Discharge: No Stand-Alone Forms: [employer], Smoking Cessation Medications and DC Order Prescriptions: New amoxicillin-pot clavulanate [Augmentin] 875-125 mg tablet 1 tab PO BID 5 Days Qty: 10 RF: 0 Continued acetaminophen 500 mg tablet 500 mg PO Q4H PRN (Reason: Pain) RF: 0 aspirin 81 mg tablet,delayed release (DR/EC) 81 mg PO QAM RF: 0 metoprolol succinate 50 mg tablet extended release 24 hr 50 mg PO QAM RF: 0 potassium chloride 20 mEq tablet,ER particles/crystals 20 meq PO QAM RF: 0 ropinirole 1 mg tablet 1 mg PO QPM RF: 0 furosemide 20 mg tablet 20 mg PO MOTUWETHFRSA@0800 RF: 0 Trelegy Ellipta 100-62.5-25 mcg blister with device 1 puffs inhalation QAM Qty: 60 RF: 11 levalbuterol tartrate [Xopenex HFA] 45 mcg/actuation HFA aerosol inhaler 2 puffs INH Q4H PRN (Reason: Shortness Of Breath) Qty: 15 RF: 11 famotidine 20 mg tablet 20 mg PO BID RF: 0 gabapentin 100 mg capsule 100 mg PO HS RF: 0 polyethylene glycol 3350 [Miralax] 17 gram powder in packet 17 gm PO DAILY PRN (Reason: constipation) Qty: 30 RF: 0 levothyroxine 125 mcg Tablet 125 mcg PO QAM RF: 0 ascorbic acid (vitamin C) [Vitamin C] 250 mg tablet 250 mg PO DAILY Qty: 30 RF: 0 ursodiol 300 mg capsule 300 mg PO BID RF: 0 cholecalciferol (vitamin D3) [Vitamin D3] 50 mcg (2,000 unit) Tablet 50 mcg PO DAILY RF: 0 Discharge Orders: Discharge Order (Routine); Ordered 11/12/19 Ordered By: Mariano Zimmerman Admission Data Admit Date/Time: 11/11/19 03:21 Attending Provider: Angie Elliott Admit Provider: Andrés Martinez Primary Care Provider: Lg Rodriguez Other Providers: Amy Luther ; Jarrett Rodrigues Other Interventions: Discharge Summary Assessment (RN) Last Done: 11/12/19 13:25 Supervising Physician Co-Signing Physician Notes Medical Student Supervision Note: I was personally present during medical student patient encounter and independently interviewed and examined the patient and verified the irizarry history and physical, reviewed labs and image studies, discussed the case with Casimiro Hilliard and agree with the findings and care plan. Chemistry Results CMP Results: Na 141 mmol/L (136-145) 11/12/19 K 3.6 mmol/L (3.5-5.1) 11/12/19 Cl 107 mmol/L (98-107) 11/12/19 CO2 25 mmol/L (21-32) 11/12/19 Anion Gap 8.0 (3-11) 11/12/19 BUN 14 mg/dl (7-18) 11/12/19 Creatinine 1.09 mg/dl (0.6-1.2) 11/12/19 BUN/Creatinine Ratio 12.7 (10-20) 11/12/19 Glu 105 mg/dl (70-99) H 11/12/19 Ca 9.1 mg/dl (8.5-10.1) 11/12/19 Phosphorus Level 2.7 mg/dl (2.5-4.9) 04/09/19 Total Bilirubin 0.9 mg/dl (0.2-1) 11/12/19 Direct Bilirubin 1.6 mg/dl (0-0.2) H 04/08/19 AST 26 U/L (15-37) 11/12/19 ALT 21 U/L (12-78) 11/12/19 Alkaline Phosphatase 135 U/L (45-117) H 11/12/19 TP 6.8 gm/dl (6.4-8.2) 11/12/19 Albumin 2.9 gm/dl (3.4-5.0) L 11/12/19 Globulin 3.9 gm/dl (2.5-4.0) 11/12/19 Albumin/Globulin Ratio 0.7 (0.9-2) L 11/12/19 CBC w Diff Results Results CBC w Diff: RBC 4.14 M/uL (4.2-5.4) L 11/12/19 WBC 7.44 K/uL (4.8-10.8) 11/12/19 Hgb 13.2 g/dL (12.0-16.0) 11/12/19 Hct 40.9 % (37-47) 11/12/19 MCV 98.8 fL (80-100) 11/12/19 MCH 31.9 pg (25-34) 11/12/19 MCHC 32.3 g/dL (32-36) 11/12/19 RDW Standard Deviation 47.7 fL (36.4-46.3) H 11/12/19 RDW Coefficient of Variation 13.2 % (11.5-14.5) 11/12/19 Plt Count 241 K/uL (130-400) 11/12/19 MPV 9.9 fL (7.4-10.4) 11/12/19 Neutrophils (%) (Auto) 82.5 % 11/12/19 Lymphocytes (%) (Auto) 5.6 % 11/12/19 Monocytes # (Auto) 0.61 K/uL (0.11-0.59) H 11/12/19 Eosinophils # (Auto) 0.24 K/uL (0-0.5) 11/12/19 Immature Granulocyte % (Auto) 0.1 % 11/12/19 Neutrophils # (Auto) 6.13 K/uL (1.4-6.5) 11/12/19 Lymphocytes # (Auto) 0.42 K/uL (1.2-3.4) L 11/12/19 Monocytes # (Auto) 0.61 K/uL (0.11-0.59) H 11/12/19 Eosinophils # (Auto) 0.24 K/uL (0-0.5) 11/12/19 Basophils # (Auto) 0.03 K/uL (0-0.2) 11/12/19 Immature Granulocyte # (Auto) 0.01 K/uL (0.00-0.02) 11/12/19
--- NOTE | 2019-11-12 14:50 | Communication Note ---
Date of Service: November 12, 2019 By CMS guidelines, a determination that the admission or continued stay is not medically necessary has been made by a member of the UR committee and marie lowe for this hospital stay, therefore a Code 44 will be completed and the Inpatient admission will be changed to outpatient.
--- NOTE | 2019-11-13 11:34 | Electrocardiogram Report ---
Test Reason : Blood Pressure : / mmHG Vent. Rate : 076 BPM Atrial Rate : 258 BPM P-R Int : 000 ms QRS Dur : 104 ms QT Int : 382 ms P-R-T Axes : 000 -63 019 degrees QTc Int : 429 ms Atrial flutter with variable A-V block Left anterior fascicular block Minimal voltage criteria for LVH, may be normal variant Nonspecific T wave abnormality Abnormal ECG When compared with ECG of 08-APR-2019 13:49, Atrial flutter has replaced Electronic ventricular pacemaker Confirmed by Harrison Hare ([id number]) on 11/13/2019 11:34:04 AM Referred By: REFERRED SELF Confirmed By:Harrison Hare
== END 2019-11-12 14:27 | disposition home or self-care (01) ==
LOC: ED 19:23 → INTOOBSV 11-11 03:21 → 2N 11-11 03:21 → SUATTDRO 11-11 03:21 → 2N 11-11 04:28

== ENCOUNTER 2020-09-26 19:02 | Inpatient (IN) ==
[2020-09-26] MEDS ORDERED: fentaNYL citrate 100 MCG/2 ML VIAL IV PRN (19:17)
[2020-09-26] MEDS ORDERED: ACETAMINOPHEN 1,000 MG/100 ML VIAL IV STA (19:17)
[2020-09-26 19:48] LABS: Basophils # (auto) 0.03 K/uL (0-0.2); Basophils % (auto) 0.4 %; Eosinophils # (auto) 0.07 K/uL (0-0.5); Hematocrit (blood only) 41.9 % (37-47); Immature Granulocytes # (auto) 0.02 K/uL (0.00-0.02); Immature Granulocytes % (auto) 0.3 %; Lymphocytes # (auto) 0.74 K/uL (1.2-3.4); Lymphocytes % (auto) 10.3 %; Mean Corpuscular Hemoglobin 32.3 pg (25-34); Mean Corpuscular Hgb Conc 33.4 g/dL (32-36); Mean Corpuscular Volume 96.5 fL (80-100); Mean Platelet Volume 9.8 fL (7.4-10.4); Monocytes # (auto) 0.57 K/uL (0.11-0.59); Monocytes % (auto) 7.9 %; Neutrophils # (auto) 5.75 K/uL (1.4-6.5); Neutrophils % (auto) 80.1 %; Platelet Count 234 K/uL (130-400); RDW Coefficient of Variation 13.3 % (11.5-14.5); RDW Standard Deviation 47.3 fL (36.4-46.3); Red Blood Count 4.34 M/uL (4.2-5.4); White Blood Count 7.18 K/uL (4.8-10.8)
[2020-09-26 20:14] LABS: Alanine Aminotransferase 16 U/L (12-78); Albumin Globulin Ratio 0.8 (0.9-2); Albumin Level 3.4 gm/dl (3.4-5.0); Alkaline Phosphatase 142 U/L (45-117); Aspartate Aminotransferase 19 U/L (15-37); BUN Creatinine Ratio 13.8 (10-20); Bilirubin,Total 1.3 mg/dl (0.2-1); Blood Urea Nitrogen 13 mg/dl (7-18); Calcium 9.1 mg/dl (8.5-10.1); Carbon Dioxide 25 mmol/L (21-32); Chloride 104 mmol/L (98-107); Creatinine Clr Calc Pharmacy 52.1 ml/min; Est GFR (Non-African American) 54.4 ml/min; Globulin 4.4 gm/dl (2.5-4.0); Glucose 106 mg/dl (70-99); Lipase 91 U/L (73-393); Potassium 3.4 mmol/L (3.5-5.1); Sodium 137 mmol/L (136-145); Total Protein 7.8 gm/dl (6.4-8.2)
[2020-09-26 20:57] LABS: Appearance Urine Clear (Clear); Bacteria Urine Automated Negative (Negative); Bilirubin Urine Negative (Negative); Blood Urine Trace (Negative); Cast Urine Automated 0 /lpf (0-5); Color Urine Yellow; Glucose Urine UA Negative (Negative); Ketones Urine Negative (Negative); Leukocyte Esterase Urine 1+ (Negative); Nitrite Urine Negative (Negative); Protein Urine Negative (Negative); RBC Urine Automated 0-4 /hpf (0-4); Specific Gravity Urine 1.006 (1.000-1.030); Urobilinogen Urine Negative (Negative)
--- NOTE | 2020-09-26 21:17 | Emergency Department Note ---
History of Present Illness General Chief complaint: Flank Pain Time Seen by Provider: 09/26/20 19:15 Source: patient and family Mode of arrival: wheelchair Limitations: no limitations History of Present Illness Provider complaint: abdominal pain Onset (ago): day(s) 1 Location: abdomen Radiation: back Severity: moderate Maximum Pain Intensity: 0 Quality: + aching Relieved By: + none Exacerbated By: + none Associated symptoms: + denies other symptoms Treatments prior to arrival: other This is an 80-year-old female presents the emergency department complaining of abdominal pain. Patient states she began noticing abdominal pain yesterday in the right upper quadrant. She states there is some radiation of the pain in the back. She states the pain was initially intermittent however today was more constant. Patient states she did not take any medication at home, however after worsening pain today which prompted her to call EMS, she was given fentanyl by EMS in route which did help relieve some of her pain. Patient states the pain is similar to prior episodes of cholelithiasis. Patient does have a prior history of a cholecystectomy, and has had several prior subsequent biliary stones requiring ERCP for removal. Patient states she did have a mild fever earlier in the day, however was afebrile on arrival. Patient denies nausea, vomiting, change in bowel or bladder function. Patient denies any recent change in diet, activity, or medication. No prior history of nephrolithiasis. Patient does have cardiac history including a pacemaker and prior congestive heart failure. Patient states she also has a history of mild COPD. Pt seen during a time of high acuity and national emergency pandemic while wearing PPE. Home Medications Medication Instructions Recorded Confirmed Type acetaminophen 500 mg tablet 500 mg PO Q4H PRN 12/03/18 09/26/20 History aspirin 81 mg tablet,delayed 81 mg PO QAM 12/03/18 09/26/20 History release furosemide 20 mg tablet 20 mg PO QAM 12/03/18 09/26/20 History metoprolol succinate 50 mg 50 mg PO QAM 12/03/18 09/26/20 History tablet,extended release 24 hr ropinirole 1 mg tablet 1 mg PO QPM PRN tab 12/03/18 09/26/20 History famotidine 20 mg tablet 20 mg PO BID 12/16/18 09/26/20 History gabapentin 100 mg capsule 100 mg PO HS PRN 12/16/18 09/26/20 History levalbuterol tartrate 45 2 puffs INH Q4H PRN #15 gm 06/17/19 09/26/20 Rx mcg/actuation aerosol inhaler (Xopenex HFA) cholecalciferol (vitamin D3) 50 50 mcg PO DAILY 11/11/19 09/26/20 History mcg (2,000 unit) tablet (Vitamin D3) ursodiol 300 mg capsule 300 mg PO BID 11/11/19 09/26/20 History fluticasone fur. 100 mcg-umeclid 1 inh INHALATION QAM #60 ea 07/06/20 09/26/20 Rx 62.5 mcg-vilant 25 mcg inhalat.powder (Trelegy Ellipta) ascorbic acid (vitamin C) 500 mg 500 mg PO DAILY 09/26/20 09/26/20 History tablet (Vitamin C) levothyroxine 137 mcg tablet 137 mcg PO QAM 09/26/20 09/26/20 History potassium chloride 10 mEq 20 meq PO QAM 09/26/20 09/26/20 History capsule,extended release Allergies Allergy/AdvReac Type Severity Reaction Status Date / Time No Known Allergies Allergy Verified 09/26/20 19:52 Past Med/Surg History Medical History (Updated 09/27/20 @ 03:05 by Milly Guillermo DO) Acute dyspnea Atrial fibrillation Common bile duct (CBD) obstruction COPD (chronic obstructive pulmonary disease) Epigastric abdominal pain Fever GERD (gastroesophageal reflux disease) Hypertension Hypothyroidism associated with surgical procedure Obstructive sleep apnea Pacemaker Pulmonary emphysema Restless leg syndrome Solitary lung nodule Surgical History History of ERCP 12/30/18 Grade 1 view Mac 3 blade S/P cholecystectomy S/P thyroidectomy Family History Other Cancer Social History Smoking Status: Never smoker Tobacco Type: Cigarettes Cigarettes Per Day: 20; Second Hand Exposure: No; Hx Alcohol Use: No Hx Substance Use: No Preferred Language: Kinyarwanda Communication Ability: Effective 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 Beliefs That Will Affect Care: None marital status: Current Living Situation: Alone current occupational status: retired Feels Safe at Home: Yes Assistive Devices: Denture - Upper, Oxygen - Continuous and Walker Review of Systems A total of 10 systems reviewed and were otherwise negative All systems reviewed & are unremarkable except as noted in HPI & below Physical Exam Vital Signs Vital Signs - 24 hr 09/26/20 19:14 09/26/20 22:28 09/26/20 23:26 Temperature 37.1 C Temperature Source Oral Pulse Rate 76 Pulse Rate [Radial] 65 85 Respiratory Rate 16 16 16 Blood Pressure 169/94 H Blood Pressure [Right Arm] 154/65 H 132/100 Blood Pressure Mean 119 Blood Pressure Mean [Right Arm] 94 110 Pulse Oximetry 93 93 96 Oxygen Delivery Method Room Air Room Air Room Air Sepsis Recent Fever Within 48 Hours No Sepsis New/Unexplained Change in Mental Status No Sepsis Action Taken by Nursing No Action Required 09/27/20 02:46 Temperature Temperature Source Pulse Rate Pulse Rate [Radial] 86 Respiratory Rate 16 Blood Pressure Blood Pressure [Right Arm] 128/70 Blood Pressure Mean Blood Pressure Mean [Right Arm] 89 Pulse Oximetry 96 Oxygen Delivery Method Room Air Sepsis Recent Fever Within 48 Hours Sepsis New/Unexplained Change in Mental Status Sepsis Action Taken by Nursing GENERAL: alert, well appearing, well nourished, no distress, non-toxic EYE EXAM: normal conjunctiva, PERRL and EOM's grossly intact OROPHARYNX: no exudate, no erythema, lips, buccal mucosa, and tongue normal and mucous membranes are moist NECK: supple, no nuchal rigidity, no adenopathy, non-tender LUNGS: Clear to auscultation. Normal chest wall mechanics, no w/r/r HEART: no murmurs, S1 normal and S2 normal ABDOMEN: abdomen soft, tenderness with palpation along the right upper quadrant, normo-active bowel sounds, no masses, no rebound or guarding. BACK: Back is symmetrical on inspection and there is no deformity, no midline tenderness, no CVA tenderness. SKIN: no rashes and no bruising UPPER EXTREMITIES: upper extremities are grossly normal. FROM, nml pulses b/l. LOWER EXTREMITIES: No pitting edema. FROM, nml pulses b/l. NEURO EXAM: Normal sensorium, cranial nerves II-XII grossly intact, normal speec h, no gross weakness of arms, no gross weakness of legs. Gross sensation intact. Course Administered Medications Fentanyl Citrate (Fentanyl Citrate 100 Mcg/2 Ml Vial) 50 mcg IV Q15M PRN PRN Reason: Pain Stop: 10/10/20 19:16 Last Admin: 09/26/20 20:10 Dose: 50 mcg Documented by: [id number] Discontinued Medications Acetaminophen (Ofirmev) 1,000 mg in 100 mls @ 400 mls/hr IV NOW STA Stop: 09/26/20 19:31 Last Infusion: 09/26/20 20:32 Dose: 0 mls/hr Documented by: [id number] Admin: 09/26/20 20:10 Dose: 400 mls/hr Documented by: [id number] Ioversol (Optiray 320 100ml) 94 ml IV ONCE ONE Stop: 09/26/20 23:15 Last Admin: 09/26/20 23:14 Dose: 1 ml Documented by: [id number] Medical Decision Making Differential Diagnosis Differential diagnoses includes but is not limited to gastritis, peptic ulcer disease, GERD, gallbladder disease, pancreatitis, small bowel obstruction, acute coronary syndrome, pericarditis, ischemic bowel, irritable bowel disease, irritable bowel syndrome, appendicitis, diverticulitis, malignancy, hernia, urinary tract infection, torsion, [/ectopic (if female)], perforation, trauma, infectious. Medical Records Attestation: I reviewed the patient's medical records. Home Medications Current Medication List: was personally reviewed by me Laboratory Data Attestation: I reviewed the patient's lab results. Result diagrams: 09/26/20 19:30 09/26/20 19:30 Lab Results 09/26/20 09/26/20 09/26/20 Range/Units 19:30 19:30 22:41 WBC 7.18 (4.8-10.8) K/uL RBC 4.34 (4.2-5.4) M/uL Hgb 14.0 (12.0-16.0) g/dL Hct 41.9 (37-47) % MCV 96.5 (80-100) fL MCH 32.3 (25-34) pg MCHC 33.4 (32-36) g/dL RDW Std Deviation 47.3 H (36.4-46.3) fL RDW Coeff of Agusto 13.3 (11.5-14.5) % Plt Count 234 (130-400) K/uL MPV 9.8 (7.4-10.4) fL Immature Gran % (Auto) 0.3 % Neut % (Auto) 80.1 % Lymph % (Auto) 10.3 % [place] % (Auto) 7.9 % Eos % (Auto) 1.0 % Baso % (Auto) 0.4 % Neut # (Auto) 5.75 (1.4-6.5) K/uL Lymph # (Auto) 0.74 L (1.2-3.4) K/uL Calloway # (Auto) 0.57 (0.11-0.59) K/uL Eos # (Auto) 0.07 (0-0.5) K/uL Baso # (Auto) 0.03 (0-0.2) K/uL Immature Gran # (Auto) 0.02 (0.00-0.02) K/uL Sodium 137 (136-145) mmol/L Potassium 3.4 L (3.5-5.1) mmol/L Chloride 104 (98-107) mmol/L Carbon Dioxide 25 (21-32) mmol/L Anion Gap 8.0 (3-11) BUN 13 (7-18) mg/dl Creatinine 0.97 (0.6-1.2) mg/dl Est Cr Clr Drug Dosing 52.1 ml/min Est GFR ( Amer) 63.0 ml/min Est GFR (Non-Af Amer) 54.4 ml/min BUN/Creatinine Ratio 13.8 (10-20) Glucose 106 H (70-99) mg/dl Calcium 9.1 (8.5-10.1) mg/dl Total Bilirubin 1.3 H (0.2-1) mg/dl AST 19 (15-37) U/L ALT 16 (12-78) U/L Alkaline Phosphatase 142 H (45-117) U/L Troponin I < 0.015 (0-0.045) ng/ml NT-Pro-B Natriuret Pep 2840 H (0-1800) pg/ml Total Protein 7.8 (6.4-8.2) gm/dl Albumin 3.4 (3.4-5.0) gm/dl Globulin 4.4 H (2.5-4.0) gm/dl Albumin/Globulin Ratio 0.8 L (0.9-2) Lipase 91 (73-393) U/L Procalcitonin < 0.05 (0-0.5) ng/ml Specimen Hemolysis Urine Color Urine Appearance (Clear) Urine pH (4.5-7.5) Ur Specific [place] (1.000-1.030) Urine Protein (Negative) Urine Glucose (UA) (Negative) Urine Ketones (Negative) Urine Blood (Negative) Urine Nitrite (Negative) Urine Bilirubin (Negative) Urine Urobilinogen (Negative) Ur Leukocyte Esterase (Negative) Urine WBC (Auto) (0-5) /hpf Urine RBC (Auto) (0-4) /hpf U Hyaline Cast (Auto) (0-5) /lpf U Epithel Cells (Auto) (0-5) /lpf Urine Bacteria (Auto) (Negative) COVID-19 Eval Order SARS-CoV-2 (PCR) (Negative) 09/26/20 09/27/20 09/27/20 Range/Units Unknown 00:40 00:40 WBC (4.8-10.8) K/uL RBC (4.2-5.4) M/uL Hgb (12.0-16.0) g/dL Hct (37-47) % MCV (80-100) fL MCH (25-34) pg MCHC (32-36) g/dL RDW Std Deviation (36.4-46.3) fL RDW Coeff of Agusto (11.5-14.5) % Plt Count (130-400) K/uL MPV (7.4-10.4) fL Immature Gran % (Auto) % Neut % (Auto) % Lymph % (Auto) % [place] % (Auto) % Eos % (Auto) % Baso % (Auto) % Neut # (Auto) (1.4-6.5) K/uL Lymph # (Auto) (1.2-3.4) K/uL [place] # (Auto) (0.11-0.59) K/uL Eos # (Auto) (0-0.5) K/uL Baso # (Auto) (0-0.2) K/uL Immature Gran # (Auto) (0.00-0.02) K/uL Sodium (136-145) mmol/L Potassium (3.5-5.1) mmol/L Chloride (98-107) mmol/L Carbon Dioxide (21-32) mmol/L Anion Gap (3-11) BUN (7-18) mg/dl Creatinine (0.6-1.2) mg/dl Est Cr Clr Drug Dosing ml/min Est GFR ( Amer) ml/min Est GFR (Non-Af Amer) ml/min BUN/Creatinine Ratio (10-20) Glucose (70-99) mg/dl Calcium (8.5-10.1) mg/dl Total Bilirubin (0.2-1) mg/dl AST (15-37) U/L ALT (12-78) U/L Alkaline Phosphatase (45-117) U/L Troponin I (0-0.045) ng/ml NT-Pro-B Natriuret Pep (0-1800) pg/ml Total Protein (6.4-8.2) gm/dl Albumin (3.4-5.0) gm/dl Globulin (2.5-4.0) gm/dl Albumin/Globulin Ratio (0.9-2) Lipase (73-393) U/L Procalcitonin (0-0.5) ng/ml Specimen Hemolysis Urine Color Yellow Urine Appearance Clear (Clear) Urine pH 7.0 (4.5-7.5) Ur Specific [place] 1.006 (1.000-1.030) Urine Protein Negative (Negative) Urine Glucose (UA) Negative (Negative) Urine Ketones Negative (Negative) Urine Blood Trace H (Negative) Urine Nitrite Negative (Negative) Urine Bilirubin Negative (Negative) Urine Urobilinogen Negative (Negative) Ur Leukocyte Esterase 1+ H (Negative) Urine WBC (Auto) 5-10 H (0-5) /hpf Urine RBC (Auto) 0-4 (0-4) /hpf U Hyaline Cast (Auto) 0 (0-5) /lpf U Epithel Cells (Auto) 10-20 H (0-5) /lpf Urine Bacteria (Auto) Negative (Negative) COVID-19 Eval Order Covid19 at [facility] SARS-CoV-2 (PCR) NEGATIVE (Negative) Imaging Data Radiologist's Impression: Ultrasound abdomen limited: Compared to CT on 04/07/2019. Liver is normal size. Liver is heterogenous. There is pneumobilia. No discrete masses present. Status post cholecystectomy. Common bile duct is not visualized due to bowel gas. Pancreas is heterogenous. Common duct is top normal caliber measuring 2 mm. Right kidney normal in appearance. No free fluid. Radiologist: Toni Yoon MD CT abdomen and pelvis with contrast: No significant interval change compared to the CT study dated 11/10/2019. Status post cholecystectomy. Persistent pneumobilia. Possible hepatic cirrhosis. Stable heterogenous enhancement at the periphery of the right hepatic lobe. No evidence of bowel obstruction or perforation. Colonic diverticulosis. Normal appendix. Stable 13 mm left adrenal nodule. Stable cystic lesion abutting distal second and proximal third segment of the duodenum, likely pseudocyst or duodenal diverticulum. Cardiomegaly. Clear lung bases. Radiologist: Cheyanne Grant MD ECG Data Attestation: I personally reviewed and interpreted this ECG as follows: Indication: + abdominal pain Rate (beats per minute): 67 Rhythm: + atrial fibrillation ECG Intervals/blocks: + Normal QRS and + Normal QT ECG Dell: + Left axis deviation ECG ST segments: + Nonspecific ST abnormalities MDM Narrative Patient presents with RUQ abdominal pain similar to prior episodes of biliary stones. Labs reassuring with mild hyperbilirubinemia. No leukocytosis or elevated procalcitonin despite pt reports fever prior to arrival at home. VS stable throughout. Patient did receive several doses of fentanyl in addition to tylenol to help with pain. Patient initially sent for US which didn't reveal any biliary stones. Nursing staff noted pt markedly dyspneic, tachypneic and hypoxic to 85% with ambulation to bathroom. Patient hx of COPD and CHF. Patient does take lasix daily. CXR added in addition to CT a/p to r/o other etiology of her initial c/o pain. CT reassuring. Patient and family updated on results. Case discussed with hospitalist for additional evaluation. Unclear etiology of abdominal pain at this time. Concern for dyspnea and hypoxia given prior cardiac and pulmonary history and patient doesn't wear oxygen at home. Pacemaker was interrogated as a precaution. Patient is aware of battery life <1 year. No acute events otherwise noted during interrogation. An order was placed for continuous cardiac monitoring. The monitor shows a rate of _88__ with _a.fib_ rhythm. Impression & Plan ARGUELLO (dyspnea on exertion), Atrial fibrillation, Elevated LFTs, Hypoxia, Abdomin al pain Discharge Plan Visit Data Chief Complaint: Flank Pain ED Provider: Milly Guillermo Discharge Problem: ARGUELLO (dyspnea on exertion), Atrial fibrillation, Elevated LFTs, Hypoxia, Abdominal pain Patient Disposition: Admitted As Inpatient Discharge Problem: Atrial fibrillation Qualifiers: Atrial fibrillation type: unspecified chronic Qualified Code(s): I48.20 - Chronic atrial fibrillation, unspecified Abdominal pain Qualifiers: Abdominal location: right upper quadrant Qualified Code(s): R10.11 - Right upper quadrant pain
[2020-09-26 23:00] LABS: NT Pro B Type Natriuretic Pept 2840 pg/ml (0-1800); Troponin I < 0.015 ng/ml (0-0.045)
[2020-09-26] MEDS ORDERED: OPTIRAY 320 100ml IV ONE (23:14)
--- NOTE | 2020-09-27 01:11 | History & Physical Report ---
Date of Service September 27, 2020 Assessment & Plan (1) RUQ pain: Plan: 80-year-old female presenting with 1 day of right upper quadrant pain, chills and fever at home. Patient is status post cholecystectomy but has intermittent episodes of cholangitis requiring ERCP with stone/sludge removal. She is presently on ursodiol. Patient is presently afebrile, hemodynamically stable, nontoxic in appearance. She has mild elevation of total bilirubin at 1.3 as well as alkaline phosphatase of 142. She has no leukocytosis, lipase is normal Abdominal US and CT do not suggest presence of biliary stone. -Observation to medical -Repeat LFTs in AM. If worse or persistent symptoms will consult GI -Low threshold to start antibiotics - Zosyn if patient becomes febrile -Morphine PRN pain -Zofran PRN nausea -Continue Ursodiol 300mg po BID (2) Pulmonary emphysema: Plan: Patient denies SOB, cough or wheeze. She had a brief episode of hypoxia noted in ER after ambulation -Continue Trelegy -Continue Xopenex -Continue to monitor (3) CKD (chronic kidney disease) stage 3, GFR 30-59 ml/min: Plan: BUN and Cr near baseline -Avoid nephrotoxic agents -Repeat chemistry in AM (4) GERD (gastroesophageal reflux disease): Plan: Chronic -Continue Pepcid (5) Atrial fibrillation: Plan: Rate controlled. Pacemaker in place - nearing end of battery life. Interrogated in ER revealing permanent atrial fibrillation. Patient follows with Cardiology - last seen on 08/19/20. -Continue Metoprolol -No anticoagulation as patient with history of retroperitoneal bleed while on anticoagulation in April 2016. (6) Hypertension: Plan: Chronic. Well controlled -Continue Metoprolol -Continue to monitor (7) Sleep apnea: Plan: Chronic -Patient no longer uses CPAP as her machine was recalled -She should be started on machine on outpatient - does not wish to use one here (8) Restless leg syndrome: Plan: Chronic -Continue Ropinirole 1mg po qPM PRN Plan: F/E/N - Heplock, conitnue PO K repletion, NPO for now Ppx - SCDs Code - DNR/DNI per discussion with patient Dispo - Observation to medical History of Present Illness Chief Complaint: RUQ pain Primary Care Provider: Charles Connolly Marianne Zhang is an 80-year-old female with history of COPD, CHF, atrial fibrillation, hypertension presenting with right upper quadrant pain. Patient had a cholecystectomy performed in July 2016. Since her cholecystectomy she has had gallstone removal x3 (December 2018, March 2019, October 2019). Patient presents today with 1 day of right upper quadrant pain. Pain is fairly severe, radiates into her back and is similar to her prior episodes of gallstones. No relation to p.o. intake. She has had chills as well as fever of 100.5 at home. She denies nausea, vomiting, diarrhea. No additional complaints. ER course: Tylenol, fentanyl Allergies Allergy/AdvReac Type Severity Reaction Status Date / Time No Known Allergies Allergy Verified 09/26/20 19:52 Home Medications Medication Instructions Recorded Confirmed Type acetaminophen 500 mg tablet 500 mg PO Q4H PRN 12/03/18 09/26/20 History aspirin 81 mg tablet,delayed 81 mg PO QAM 12/03/18 09/26/20 History release furosemide 20 mg tablet 20 mg PO QAM 12/03/18 09/26/20 History metoprolol succinate 50 mg 50 mg PO QAM 12/03/18 09/26/20 History tablet,extended release 24 hr ropinirole 1 mg tablet 1 mg PO QPM PRN tab 12/03/18 09/26/20 History famotidine 20 mg tablet 20 mg PO BID 12/16/18 09/26/20 History gabapentin 100 mg capsule 100 mg PO HS PRN 12/16/18 09/26/20 History levalbuterol tartrate 45 2 puffs INH Q4H PRN #15 gm 06/17/19 09/26/20 Rx mcg/actuation aerosol inhaler (Xopenex HFA) cholecalciferol (vitamin D3) 50 50 mcg PO DAILY 11/11/19 09/26/20 History mcg (2,000 unit) tablet (Vitamin D3) ursodiol 300 mg capsule 300 mg PO BID 11/11/19 09/26/20 History fluticasone fur. 100 mcg-umeclid 1 inh INHALATION QAM #60 ea 07/06/20 09/26/20 Rx 62.5 mcg-vilant 25 mcg inhalat.powder (Trelegy Ellipta) ascorbic acid (vitamin C) 500 mg 500 mg PO DAILY 09/26/20 09/26/20 History tablet (Vitamin C) levothyroxine 137 mcg tablet 137 mcg PO QAM 09/26/20 09/26/20 History potassium chloride 10 mEq 20 meq PO QAM 09/26/20 09/26/20 History capsule,extended release Past Med/Surg History Medical History (Updated 09/27/20 @ 01:22 by Amy Luther DO) Acute dyspnea Atrial fibrillation Common bile duct (CBD) obstruction COPD (chronic obstructive pulmonary disease) Epigastric abdominal pain Fever GERD (gastroesophageal reflux disease) Hypertension Hypothyroidism associated with surgical procedure Obstructive sleep apnea Pacemaker Pulmonary emphysema Restless leg syndrome Solitary lung nodule Surgical History History of ERCP 12/30/18 Grade 1 view Mac 3 blade S/P cholecystectomy S/P thyroidectomy Family History Other Cancer Social History Smoking Status: Never smoker Tobacco Type: Cigarettes Cigarettes Per Day: 20; Second Hand Exposure: No; Hx Alcohol Use: No Hx Substance Use: No Preferred Language: Uzbek Communication Ability: Effective Fusing Machine Tender Required: No Beliefs That Will Affect Care: None marital status: Current Living Situation: Alone current occupational status: retired Feels Safe at Home: Yes Assistive Devices: Denture - Upper, Oxygen - Continuous and Walker Review of Systems Review of Systems: All systems reviewed & are unremarkable except as noted in HPI & below Physical Exam Physical Exam: General: patient resting comfortably, NAD, non-toxic in appearance, AA&O x 4 Skin: warm, dry, intact, no rashes or lesions, No jaundice or icterus HEENT: NC/AT, PERRL, EOMI, anicteric sclera, conjunctiva without injection, external ear normal to inspection and nontender, nares patent, moist mucus membranes, dentition intact, no oropharyngeal lesions, neck supple, trachea midline, no LAD, no thyromegaly, no JVD Heart: +S1/S2, regular, no m/r/g Lungs: equal air entry bilaterally, + Crackles in bilateral bases, right more so than left Abd: +BS, soft, ND, no masses/organomegaly/ascites, Tenderness in right upper quadrant and epigastric region with no rebound or guarding Ext: warm, 2+ pulses in UE/LE bilaterally, no clubbing/cyanosis or edema Neuro: nonfocal, patient AA&O x 4, speech intact, no facial droop, moving all extremities on command with equal strength 5/5 Results & Data Results & Data ([facility]) Vital Signs (Past 12 Hours) Vital Signs Temp Pulse Pulse Resp BP BP Pulse Ox 09/26/20 23:26 85 16 132/100 96 09/26/20 22:28 65 16 154/65 H 93 09/26/20 19:14 37.1 C 76 16 169/94 H 93 Laboratory Results Laboratory Results WBC 7.18 K/uL (4.8-10.8) 09/26/20 19:30 RBC 4.34 M/uL (4.2-5.4) 09/26/20 19:30 Hgb 14.0 g/dL (12.0-16.0) 09/26/20 19:30 Hct 41.9 % (37-47) 09/26/20 19:30 MCV 96.5 fL (80-100) 09/26/20 19:30 MCH 32.3 pg (25-34) 09/26/20 19:30 MCHC 33.4 g/dL (32-36) 09/26/20 19:30 RDW Std Deviation 47.3 fL (36.4-46.3) H 09/26/20 19:30 RDW Coeff of Agusto 13.3 % (11.5-14.5) 09/26/20 19:30 Plt Count 234 K/uL (130-400) 09/26/20 19:30 MPV 9.8 fL (7.4-10.4) 09/26/20 19:30 Immature Gran % (Auto) 0.3 % 09/26/20 19:30 Neut % (Auto) 80.1 % 09/26/20 19:30 Lymph % (Auto) 10.3 % 09/26/20 19:30 [place] % (Auto) 7.9 % 09/26/20 19:30 Eos % (Auto) 1.0 % 09/26/20 19:30 Baso % (Auto) 0.4 % 09/26/20 19:30 Neut # (Auto) 5.75 K/uL (1.4-6.5) 09/26/20 19:30 Lymph # (Auto) 0.74 K/uL (1.2-3.4) L 09/26/20 19:30 [place] # (Auto) 0.57 K/uL (0.11-0.59) 09/26/20 19:30 Eos # (Auto) 0.07 K/uL (0-0.5) 09/26/20 19:30 Baso # (Auto) 0.03 K/uL (0-0.2) 09/26/20 19:30 Immature Gran # (Auto) 0.02 K/uL (0.00-0.02) 09/26/20 19:30 Sodium 137 mmol/L (136-145) 09/26/20 19:30 Potassium 3.4 mmol/L (3.5-5.1) L 09/26/20 19:30 Chloride 104 mmol/L (98-107) 09/26/20 19:30 Carbon Dioxide 25 mmol/L (21-32) 09/26/20 19:30 Anion Gap 8.0 (3-11) 09/26/20 19:30 BUN 13 mg/dl (7-18) 09/26/20 19:30 Creatinine 0.97 mg/dl (0.6-1.2) 09/26/20 19:30 Est Cr Clr Drug Dosing 52.1 ml/min 09/26/20 19:30 Est GFR ( Amer) 63.0 ml/min 09/26/20 19:30 Est GFR (Non-Af Amer) 54.4 ml/min 09/26/20 19:30 BUN/Creatinine Ratio 13.8 (10-20) 09/26/20 19:30 Glucose 106 mg/dl (70-99) H 09/26/20 19:30 Calcium 9.1 mg/dl (8.5-10.1) 09/26/20 19:30 Total Bilirubin 1.3 mg/dl (0.2-1) H 09/26/20 19:30 AST 19 U/L (15-37) 09/26/20 19:30 ALT 16 U/L (12-78) 09/26/20 19:30 Alkaline Phosphatase 142 U/L (45-117) H 09/26/20 19:30 Troponin I < 0.015 ng/ml (0-0.045) 09/26/20 19:30 NT-Pro-B Natriuret Pep 2840 pg/ml (0-1800) H 09/26/20 19:30 Total Protein 7.8 gm/dl (6.4-8.2) 09/26/20 19:30 Albumin 3.4 gm/dl (3.4-5.0) 09/26/20 19:30 Globulin 4.4 gm/dl (2.5-4.0) H 09/26/20 19:30 Albumin/Globulin Ratio 0.8 (0.9-2) L 09/26/20 19:30 Lipase 91 U/L (73-393) 09/26/20 19:30 Procalcitonin < 0.05 ng/ml (0-0.5) 09/26/20 22:41 Specimen Hemolysis 09/26/20 19:30 Urine Color Yellow 09/26/20 Unknown Urine Appearance Clear (Clear) 09/26/20 Unknown Urine pH 7.0 (4.5-7.5) 09/26/20 Unknown Ur Specific [place] 1.006 (1.000-1.030) 09/26/20 Unknown Urine Protein Negative (Negative) 09/26/20 Unknown Urine Glucose (UA) Negative (Negative) 09/26/20 Unknown Urine Ketones Negative (Negative) 09/26/20 Unknown Urine Blood Trace (Negative) H 09/26/20 Unknown Urine Nitrite Negative (Negative) 09/26/20 Unknown Urine Bilirubin Negative (Negative) 09/26/20 Unknown Urine Urobilinogen Negative (Negative) 09/26/20 Unknown Ur Leukocyte Esterase 1+ (Negative) H 09/26/20 Unknown Urine WBC (Auto) 5-10 /hpf (0-5) H 09/26/20 Unknown Urine RBC (Auto) 0-4 /hpf (0-4) 09/26/20 Unknown U Hyaline Cast (Auto) 0 /lpf (0-5) 09/26/20 Unknown U Epithel Cells (Auto) 10-20 /lpf (0-5) H 09/26/20 Unknown Urine Bacteria (Auto) Negative (Negative) 09/26/20 Unknown COVID-19 Eval Order Covid19 at [facility] 09/27/20 00:40 Diagnostic Findings Abdominal ultrasound limited: Per stat radcompared to CT from 04/07/2019, liver is normal size. Liver is heterogenous. There is pneumobilia. No discrete mass present. Status post cholecystectomy. Common bile duct is not visualized due to bowel gas. Pancreas is heterogenous. Carotic duct is top normal caliber measuring 2 mm. Right kidney normal in appearance. No free fluid CT abdomen pelvis with contrast: Per stat readno significant interval change compared to the CT study dated 11/10/2019. Status post cholecystectomy. Persistent pneumobilia. Possible hepatic cirrhosis. Stable heterogenous enhancement of the periphery of the right hepatic lobe. No evidence of bowel obstruction or perforation. Colonic diverticulosis. Normal appendix. Stable 13 mm left adrenal nodule. Stable cystic lesion abutting distal second and proximal third segment of the duodenum, likely pseudocyst or duodenal diverticulum. Cardiomegaly. Clear lung bases. ECG Additional Comments: EKG with atrial fibrillation at 67 bpm, QRS = 100, QTc = 426. PG Care Time/CCT Total # of Minutes Spent Total Time Spent with Patient: Total time spent is greater than 50% in coordination of care (as documented) at patient's floor/unit and/or counseling patient: Coding Level of Care Code INT OBSERVATION CARE 50M LVL 2 Diagnoses Sleep apnea G47.30 Pulmonary emphysema J43.9 CKD (chronic kidney disease) stage 3, GFR 30-59 ml/min N18.3 GERD (gastroesophageal reflux disease) K21.9 Esophagitis presence: esophagitis presence not specified Atrial fibrillation I48.0 Atrial fibrillation type: paroxysmal Hypertension I10 Hypertension type: essential hypertension RUQ pain R10.11 Restless leg syndrome G25.81 (1) GERD (gastroesophageal reflux disease) Esophagitis presence: esophagitis presence not specified Qualified Code(s): K21.9 - Gastro-esophageal reflux disease without esophagitis (2) Atrial fibrillation Atrial fibrillation type: paroxysmal Qualified Code(s): I48.0 - Paroxysmal atrial fibrillation (3) Hypertension Hypertension type: essential hypertension Qualified Code(s): I10 - Essential (primary) hypertension
[2020-09-27] MEDS ORDERED: DOCUSATE SODIUM 100 MG CAP PO PRN (03:44)
[2020-09-27] MEDS ORDERED: LEVALBUTEROL TARTRATE 15 GM HFA.AER.AD INH PRN (03:44)
[2020-09-27] MEDS ORDERED: POLYETHYLENE (MIRALAX) 17 GM PACK PO PRN (03:44)
[2020-09-27] MEDS ORDERED: ONDANSETRON INJ 2 MG/ML 2 ML VIAL IV PRN (03:44)
[2020-09-27] MEDS ORDERED: ACETAMINOPHEN 500 MG TAB PO PRN (03:44)
[2020-09-27] MEDS ORDERED: MoRPHine SULFATE 2 MG/ML CARP IV PRN (03:44)
[2020-09-27] MEDS: LEVOTHYROXINE SODIUM 137 MCG TABLET PO SCH (05:44)
--- NOTE | 2020-09-27 07:09 | Ultrasound Report ---
ULTRASOUND RIGHT UPPER QUADRANT ABDOMEN CLINICAL HISTORY: Right upper quadrant abdominal pain. Reported history of cholelithiasis. COMPARISON STUDY: Abdominal CT dated 11/10/2019. TECHNIQUE: Real-time, grayscale, and color flow sonography of the right upper quadrant of the abdomen was performed. Images are reviewed in the transverse and longitudinal planes. FINDINGS: Liver: The liver is normal in size and heterogeneous in echotexture. Nodularity of the surface contou r suggests change of cirrhosis. There is no intrahepatic biliary ductal dilatation. Linear echogenic foci within the left lobe are consistent with pneumobilia. The main portal vein is patent. Gallbladder: The gallbladder is surgically absent. The common bile duct is not well-visualized, likel y due to pneumobilia. Pancreas: Visualized portions of the pancreatic head and body are normal in appearance. The splenic v ein is patent. Right kidney: Survey images of the right kidney demonstrate cortical atrophy. Echotexture is normal. There is no hydronephrosis. Ascites: None. IMPRESSION: 1. No acute sonographic abnormality is identified in the right upper quadrant noting status post chol ecystectomy. 2. Pneumobilia is noted. 3. Cirrhotic liver morphology. ACT 112: Negative or not required by law. Electronically signed by: Troy Platt M.D. 09/27/2020 7:08 AM
--- NOTE | 2020-09-27 07:34 | XRay Report ---
SINGLE VIEW CHEST CLINICAL HISTORY: Dyspnea on exertion. FINDINGS: An AP, portable, upright chest radiograph is compared to study dated 11/10/2019 and correlat ed with chest CT dated 04/07/2019. A 2-lead cardiac pacemaker is unchanged in position. The heart is e nlarged noting atherosclerotic calcification of the thoracic aorta. The pulmonary vasculature is nonc ongested. Chronic interstitial thickening is similar to previous. There is bibasilar scarring/atelect asis. Trace loculated chronic pleural effusion is seen at the right lung base. No airspace consolidat ion is identified typical pneumonia. No pneumothorax is seen. The skeletal structures are osteopenic. The bony thorax is grossly intact. IMPRESSION: 1. Cardiomegaly and cardiac pacemaker. There is no radiographic evidence of congestive failure. 2. Chronic parenchymal changes as above with no acute abnormality identified. ACT 112: Negative or not required by law. Electronically signed by: Troy Platt M.D. 09/27/2020 7:33 AM
[2020-09-27] MEDS ORDERED: POTASSIUM CHLORIDE CRTAB 20 MEQ TABCR PO STA (08:32)
--- NOTE | 2020-09-27 08:37 | Hospitalist Progress Note ---
Date of Service September 27, 2020 Assessment & Plan (1) RUQ pain: Plan: 80-year-old female presenting with 1 day of right upper quadrant pain, chills and fever at home. Patient is status post cholecystectomy but has intermittent episodes of cholangitis requiring ERCP with stone/sludge removal (most recently 2019, Mar 2019, Oct 2019/Nov 2019) On Ursodiol 300mg BID -- continued CTAP * 1. There are no acute infectious or inflammatory findings in the abdomen or pelvis. * 2. Chronic hepatic changes with evidence of cirrhosis. * 3. There is unchanged appearance of a 4.1 cm peripherally enhancing fluid collection along the inferior aspect of the proximal duodenum. This is unchanged from 11/09/2020 but is new from older prior examinations. This likely represents a pseudocyst or seroma. (LIPASE WNL) * 4. The endometrium appears thickened and heterogeneous for age measuring up to 13 mm. This is not well evaluated by CT. Nonemergent/outpatient follow-up pelvic ultrasound and gynecology assessment is recommended. * 5. Sigmoid diverticulosis without CT evidence of acute diverticular uterus. * 6. Cardiomegaly and cardiac pacemaker. * 7. Additional findings as above. Tbili 1.3--> 1.2 Alp 142--> 132 Prior elevations higher in past GI consulted -- rec transfer as patient presents early in course prior to becoming sick No fever/WBC but discussed with [facility] ([place] Blackburn) for transfer and they felt no need for transfer at this current time and rec monitoring here for now. She is on all week and can reach out if needed Rec obtaining blood cultures -- ordered Placed on Zosyn --> can continue Cipro for oral at d/c per [facility] Clear liquid diet tolerated and will continue for now Main control, supportive care Continue to monitor (2) Pulmonary emphysema: Plan: Patient denies SOB, cough or wheeze. She had a brief episode of hypoxia noted in ER after ambulation -Continue Trelegy -Continue Xopenex -Continue to monitor (3) CKD (chronic kidney disease) stage 3, GFR 30-59 ml/min: Plan: BUN and Cr near baseline -Avoid nephrotoxic agents -Repeat chemistry in AM (4) GERD (gastroesophageal reflux disease): Plan: Chronic -Continue Pepcid (5) Atrial fibrillation: Plan: Rate controlled. Pacemaker in place - nearing end of battery life. Interrogated in ER revealing permanent atrial fibrillation. Patient follows with Cardiology - last seen on 08/19/20. -Continue Metoprolol -No anticoagulation as patient with history of retroperitoneal bleed while on anticoagulation in April 2016. (6) Hypertension: Plan: Chronic. Well controlled -Continue Metoprolol -Continue to monitor (7) Sleep apnea: Plan: Chronic -Patient no longer uses CPAP as her machine was recalled -She should be started on machine on outpatient - does not wish to use one here (8) Restless leg syndrome: Plan: Chronic -Continue Ropinirole 1mg po qPM PRN Plan: F/E/N - Heplock, conitnue PO K repletion, NPO for now Ppx - SCDs No chemical given prior retroperitoneal bleed in past Code - DNR/DNI per discussion with patient Dispo - Observation to medical Admission and Anticipated Discharge Date Admission Date: September 27, 2020 Supervising Physician Co-Signing Physician Notes PA Supervision Note: I did not personally see or examine the patient today, but I verified all irizarry points of AUSTIN Fong's assessment and plan with the following exceptions/additions: None Subjective BRIDGE NOTE: ADMITTED AFTER MIDNIGHT Feeling ok. Decreased RUQ pain and no need for further medications. Tolerated clear liquid diet. No increase in pain. No WBC or fever. Discussed possible need for transfer for ERCP. She is unable to have MRCP due to pacemaker and no on here available to do ERCP. Consulted Dr Aponte -- patient typically is told to come early to prevent becoming septic and recommended transfer. Patient initially was hopeful to go home today. Discussed with [facility] Dr Blackburn (GI) and she felt given prior imaging patient does not need transfer at this time -- sphincterotomy open and no need for stent at this time, however rec obtaining blood cultures and placing on IV abx and can send on oral if stable. If she spikes fever, WBC or worsening pain/LFT elevation she will be on this week and able to accept in transfer. Patient agreeable to this plan at this time. Questions/concerns addressed. Daughter updated at bedside. Review of Systems Review of Systems: All systems reviewed & are unremarkable except as noted in HPI & below Physical Exam Physical Exam: General: patient resting comfortably, NAD, non-toxic in appea kelsey, AA&O x 4 Skin: warm, dry, intact, no rashes or lesions, No jaundice or icterus HEENT: NC/AT, PERRL, EOMI, anicteric sclera, conjunctiva without injection, external ear normal to inspection and nontender, nares patent, moist mucus membranes, dentition intact, no oropharyngeal lesions, neck supple, trachea midline, no LAD, no thyromegaly, no JVD Heart: +S1/S2, regular, no m/r/g Lungs: equal air entry bilaterally, + Crackles in bilateral bases, right more so than left Abd: +BS, soft, ND, no masses/organomegaly/ascites, Tenderness in right upper quadrant and epigastric region with no rebound or guarding Ext: warm, 2+ pulses in UE/LE bilaterally, no clubbing/cyanosis or edema Neuro: nonfocal, patient AA&O x 4, speech intact, no facial droop, moving all extremities on command with equal strength 5/5 Results & Data Results & Data ([facility]) Vital Signs (Past 12 Hours) Vital Signs Temp Pulse Pulse Resp BP Pulse Ox 09/27/20 07:41 37.0 C 71 18 116/70 94 09/27/20 03:25 36.5 C 77 16 150/84 H 93 09/27/20 02:46 86 16 128/70 96 09/26/20 23:26 85 16 132/100 96 09/26/20 22:28 65 16 154/65 H 93 Laboratory Results 09/27/20 09/27/20 09/27/20 Range/Units 08:40 08:40 00:40 WBC 7.89 (4.8-10.8) K/uL RBC 4.27 (4.2-5.4) M/uL Hgb 13.8 (12.0-16.0) g/dL Hct 41.0 (37-47) % MCV 96.0 (80-100) fL MCH 32.3 (25-34) pg MCHC 33.7 (32-36) g/dL RDW Std Deviation 46.7 H (36.4-46.3) fL RDW Coeff of Agusto 13.3 (11.5-14.5) % Plt Count 250 (130-400) K/uL MPV 9.5 (7.4-10.4) fL Immature Gran % (Auto) % Neut % (Auto) % Lymph % (Auto) % [place] % (Auto) % Eos % (Auto) % Baso % (Auto) % Neut # (Auto) (1.4-6.5) K/uL Lymph # (Auto) (1.2-3.4) K/uL [place] # (Auto) (0.11-0.59) K/uL Eos # (Auto) (0-0.5) K/uL Baso # (Auto) (0-0.2) K/uL Immature Gran # (Auto) (0.00-0.02) K/uL Neutrophils % (Manual) 87.1 % Lymphocytes % (Manual) 9.5 % Monocytes % (Manual) 3.4 % Neutrophils # (Manual) 6.87 H (1.4-6.5) K/uL Total Absolute Neuts 6.87 H (1.4-6.5) K/uL Lymphocytes # (Manual) 0.75 L (1.2-3.4) K/uL Total Abs Lymphocytes 0.75 L (1.2-3.4) K/uL Monocytes # (Manual) 0.27 (0.11-0.59) K/uL Sodium 140 (136-145) mmol/L Potassium TNP (3.5-5.1) mmol/L Chloride 106 (98-107) mmol/L Carbon Dioxide 28 (21-32) mmol/L Anion Gap 5.0 (3-11) BUN 12 (7-18) mg/dl Creatinine 0.95 (0.6-1.2) mg/dl Est Cr Clr Drug Dosing 53.1 ml/min Est GFR ( Amer) 64.6 ml/min Est GFR (Non-Af Amer) 55.8 ml/min BUN/Creatinine Ratio 12.1 (10-20) Glucose 95 (70-99) mg/dl Calcium 8.9 (8.5-10.1) mg/dl Magnesium TNP Total Bilirubin 1.2 H (0.2-1) mg/dl Direct Bilirubin TNP AST TNP (15-37) U/L ALT 14 (12-78) U/L Alkaline Phosphatase 132 H (45-117) U/L Troponin I (0-0.045) ng/ml NT-Pro-B Natriuret Pep (0-1800) pg/ml Total Protein 7.4 (6.4-8.2) gm/dl Albumin 3.1 L (3.4-5.0) gm/dl Globulin (2.5-4.0) gm/dl Albumin/Globulin Ratio (0.9-2) Lipase (73-393) U/L Procalcitonin (0-0.5) ng/ml Specimen Hemolysis Urine Color Urine Appearance (Clear) Urine pH (4.5-7.5) Ur Specific [place] (1.000-1.030) Urine Protein (Negative) Urine Glucose (UA) (Negative) Urine Ketones (Negative) Urine Blood (Negative) Urine Nitrite (Negative) Urine Bilirubin (Negative) Urine Urobilinogen (Negative) Ur Leukocyte Esterase (Negative) Urine WBC (Auto) (0-5) /hpf Urine RBC (Auto) (0-4) /hpf U Hyaline Cast (Auto) (0-5) /lpf U Epithel Cells (Auto) (0-5) /lpf Urine Bacteria (Auto) (Negative) COVID-19 Eval Order SARS-CoV-2 (PCR) NEGATIVE (Negative) 09/27/20 09/26/20 09/26/20 Range/Units 00:40 Unknown 22:41 WBC (4.8-10.8) K/uL RBC (4.2-5.4) M/uL Hgb (12.0-16.0) g/dL Hct (37-47) % MCV (80-100) fL MCH (25-34) pg MCHC (32-36) g/dL RDW Std Deviation (36.4-46.3) fL RDW Coeff of Agusto (11.5-14.5) % Plt Count (130-400) K/uL MPV (7.4-10.4) fL Immature Gran % (Auto) % Neut % (Auto) % Lymph % (Auto) % [place] % (Auto) % Eos % (Auto) % Baso % (Auto) % Neut # (Auto) (1.4-6.5) K/uL Lymph # (Auto) (1.2-3.4) K/uL [place] # (Auto) (0.11-0.59) K/uL Eos # (Auto) (0-0.5) K/uL Baso # (Auto) (0-0.2) K/uL Immature Gran # (Auto) (0.00-0.02) K/uL Neutrophils % (Manual) % Lymphocytes % (Manual) % Monocytes % (Manual) % Neutrophils # (Manual) (1.4-6.5) K/uL Total Absolute Neuts (1.4-6.5) K/uL Lymphocytes # (Manual) (1.2-3.4) K/uL Total Abs Lymphocytes (1.2-3.4) K/uL Monocytes # (Manual) (0.11-0.59) K/uL Sodium (136-145) mmol/L Potassium (3.5-5.1) mmol/L Chloride (98-107) mmol/L Carbon Dioxide (21-32) mmol/L Anion Gap (3-11) BUN (7-18) mg/dl Creatinine (0.6-1.2) mg/dl Est Cr Clr Drug Dosing ml/min Est GFR ( Amer) ml/min Est GFR (Non-Af Amer) ml/min BUN/Creatinine Ratio (10-20) Glucose (70-99) mg/dl Calcium (8.5-10.1) mg/dl Magnesium Total Bilirubin (0.2-1) mg/dl Direct Bilirubin AST (15-37) U/L ALT (12-78) U/L Alkaline Phosphatase (45-117) U/L Troponin I (0-0.045) ng/ml NT-Pro-B Natriuret Pep (0-1800) pg/ml Total Protein (6.4-8.2) gm/dl Albumin (3.4-5.0) gm/dl Globulin (2.5-4.0) gm/dl Albumin/Globulin Ratio (0.9-2) Lipase (73-393) U/L Procalcitonin < 0.05 (0-0.5) ng/ml Specimen Hemolysis Urine Color Yellow Urine Appearance Clear (Clear) Urine pH 7.0 (4.5-7.5) Ur Specific [place] 1.006 (1.000-1.030) Urine Protein Negative (Negative) Urine Glucose (UA) Negative (Negative) Urine Ketones Negative (Negative) Urine Blood Trace H (Negative) Urine Nitrite Negative (Negative) Urine Bilirubin Negative (Negative) Urine Urobilinogen Negative (Negative) Ur Leukocyte Esterase 1+ H (Negative) Urine WBC (Auto) 5-10 H (0-5) /hpf Urine RBC (Auto) 0-4 (0-4) /hpf U Hyaline Cast (Auto) 0 (0-5) /lpf U Epithel Cells (Auto) 10-20 H (0-5) /lpf Urine Bacteria (Auto) Negative (Negative) COVID-19 Eval Order Covid19 at [facility] SARS-CoV-2 (PCR) (Negative) 09/26/20 09/26/20 Range/Units 19:30 19:30 WBC 7.18 (4.8-10.8) K/uL RBC 4.34 (4.2-5.4) M/uL Hgb 14.0 (12.0-16.0) g/dL Hct 41.9 (37-47) % MCV 96.5 (80-100) fL MCH 32.3 (25-34) pg MCHC 33.4 (32-36) g/dL RDW Std Deviation 47.3 H (36.4-46.3) fL RDW Coeff of Agusto 13.3 (11.5-14.5) % Plt Count 234 (130-400) K/uL MPV 9.8 (7.4-10.4) fL Immature Gran % (Auto) 0.3 % Neut % (Auto) 80.1 % Lymph % (Auto) 10.3 % [place] % (Auto) 7.9 % Eos % (Auto) 1.0 % Baso % (Auto) 0.4 % Neut # (Auto) 5.75 (1.4-6.5) K/uL Lymph # (Auto) 0.74 L (1.2-3.4) K/uL [place] # (Auto) 0.57 (0.11-0.59) K/uL Eos # (Auto) 0.07 (0-0.5) K/uL Baso # (Auto) 0.03 (0-0.2) K/uL Immature Gran # (Auto) 0.02 (0.00-0.02) K/uL Neutrophils % (Manual) % Lymphocytes % (Manual) % Monocytes % (Manual) % Neutrophils # (Manual) (1.4-6.5) K/uL Total Absolute Neuts (1.4-6.5) K/uL Lymphocytes # (Manual) (1.2-3.4) K/uL Total Abs Lymphocytes (1.2-3.4) K/uL Monocytes # (Manual) (0.11-0.59) K/uL Sodium 137 (136-145) mmol/L Potassium 3.4 L (3.5-5.1) mmol/L Chloride 104 (98-107) mmol/L Carbon Dioxide 25 (21-32) mmol/L Anion Gap 8.0 (3-11) BUN 13 (7-18) mg/dl Creatinine 0.97 (0.6-1.2) mg/dl Est Cr Clr Drug Dosing 52.1 ml/min Est GFR ( Amer) 63.0 ml/min Est GFR (Non-Af Amer) 54.4 ml/min BUN/Creatinine Ratio 13.8 (10-20) Glucose 106 H (70-99) mg/dl Calcium 9.1 (8.5-10.1) mg/dl Magnesium Total Bilirubin 1.3 H (0.2-1) mg/dl Direct Bilirubin AST 19 (15-37) U/L ALT 16 (12-78) U/L Alkaline Phosphatase 142 H (45-117) U/L Troponin I < 0.015 (0-0.045) ng/ml NT-Pro-B Natriuret Pep 2840 H (0-1800) pg/ml Total Protein 7.8 (6.4-8.2) gm/dl Albumin 3.4 (3.4-5.0) gm/dl Globulin 4.4 H (2.5-4.0) gm/dl Albumin/Globulin Ratio 0.8 L (0.9-2) Lipase 91 (73-393) U/L Procalcitonin (0-0.5) ng/ml Specimen Hemolysis Urine Color Urine Appearance (Clear) Urine pH (4.5-7.5) Ur Specific [place] (1.000-1.030) Urine Protein (Negative) Urine Glucose (UA) (Negative) Urine Ketones (Negative) Urine Blood (Negative) Urine Nitrite (Negative) Urine Bilirubin (Negative) Urine Urobilinogen (Negative) Ur Leukocyte Esterase (Negative) Urine WBC (Auto) (0-5) /hpf Urine RBC (Auto) (0-4) /hpf U Hyaline Cast (Auto) (0-5) /lpf U Epithel Cells (Auto) (0-5) /lpf Urine Bacteria (Auto) (Negative) COVID-19 Eval Order SARS-CoV-2 (PCR) (Negative) Diagnostic Findings Abdomen Ultrasound 09/26/20 20:51 ULTRASOUND RIGHT UPPER QUADRANT ABDOMEN CLINICAL HISTORY: Right upper quadrant abdominal pain. Reported history of cholelithiasis. COMPARISON STUDY: Abdominal CT dated 11/10/2019. TECHNIQUE: Real-time, grayscale, and color flow sonography of the right upper quadrant of the abdomen was performed. Images are reviewed in the transverse and longitudinal planes. FINDINGS: Liver: The liver is normal in size and heterogeneous in echotexture. Nodularity of the surface contour suggests change of cirrhosis. There is no intrahepatic biliary ductal dilatation. Linear echogenic foci within the left lobe are consistent with pneumobilia. The main portal vein is patent. Gallbladder: The gallbladder is surgically absent. The common bile duct is not well-visualized, likely due to pneumobilia. Pancreas: Visualized portions of the pancreatic head and body are normal in appearance. The splenic vein is patent. Right kidney: Survey images of the right kidney demonstrate cortical atrophy. Echotexture is normal. There is no hydronephrosis. Ascites: None. IMPRESSION: 1. No acute sonographic abnormality is identified in the right upper quadrant noting status post cholecystectomy. 2. Pneumobilia is noted. 3. Cirrhotic liver morphology. ACT 112: Negative or not required by law. Electronically signed by: Troy Platt M.D. 09/27/2020 7:08 AM Abdomen/Pelvis CT 09/26/20 22:56 CT SCAN OF THE ABDOMEN AND PELVIS WITH IV CONTRAST CLINICAL HISTORY: Right upper quadrant abdominal pain. COMPARISON STUDY: Abdominal CT dated 11/10/2019 and 08/03/2016. TECHNIQUE: Following the IV administration of 94 cc of Optiray 320, CT scan of the abdomen and pelvis is performed from the lung bases to the proximal femora. Images are reviewed in the axial, sagittal, and coronal planes. IV contrast was administered without complication. A dose lowering technique was utilized adhering to the principles of ALARA. CT DOSE: 868.13 mGy.cm FINDINGS: Lung bases: The heart is enlarged and without pericardial effusion. Pacemaker leads are noted. There is a tiny hiatal hernia. The lung bases are clear noting bibasilar scarring/atelectasis. Liver: The contrast-enhanced liver is normal in size. Attenuation is heterogeneous with bandlike fibrosis in the subcapsular right lobe. Nodularity of the surface contour suggests changes of cirrhosis. There is mild intrahepatic biliary ductal dilatation. Pneumobilia is seen throughout the left lobe. There is also gas within the common bile duct. The hepatic veins and portal veins are patent. Gallbladder: Surgically absent. Spleen: Normal in size and attenuation. Pancreas: Mildly atrophic and grossly unremarkable. Adrenal glands: A 1.5 cm left adrenal adenoma is unchanged. The right adrenal gland is normal in appearance. Kidneys: The contrast enhanced kidneys are atrophic and without hydronephrosis. The kidneys enhance symmetrically. Abdominal vasculature: The abdominal aorta is normal in course and caliber not ing moderate to advanced atherosclerotic calcification. Bowel: There is moderate sigmoid diverticulosis without CT evidence of acute diverticulitis. No bowel obstruction is seen. There is a duodenal diverticulum. The appendix is well-visualized and normal. Peritoneum: There is no intraperitoneal free air or abdominal ascites. A 4.1 x 2.3 cm low-attenuation lesion or fluid collection is again seen along the inferior aspect of the proximal duodenum on image #201. This is unchanged from 11/10/2019 but is new from 10/07/2016 examination. Soft tissue thickening/scarring along the right paracolic gutter is unchanged. Lymphadenopathy: None. Pelvic viscera: The bladder is normal as visualized. The endometrium appears thickened and heterogeneous for age measuring up to 13 mm. No adnexal lesion is seen. Skeletal structures: The skeletal structures are osteopenic. Mild to moderate lumbosacral spondylosis is observed. No lytic or blastic lesions are seen. IMPRESSION: 1. There are no acute infectious or inflammatory findings in the abdomen or pelvis. 2. Chronic hepatic changes with evidence of cirrhosis. 3. There is unchanged appearance of a 4.1 cm peripherally enhancing fluid collection along the inferior aspect of the proximal duodenum. This is unchanged from 11/09/2020 but is new from older prior examinations. This likely represents a pseudocyst or seroma. 4. The endometrium appears thickened and heterogeneous for age measuring up to 13 mm. This is not well evaluated by CT. Nonemergent/outpatient follow-up pelvic ultrasound and gynecology assessment is recommended. 5. Sigmoid diverticulosis without CT evidence of acute diverticular uterus. 6. Cardiomegaly and cardiac pacemaker. 7. Additional findings as above. ACT 112: Positive. There are findings on this exam that require communication between the performing entity and the patient following Patient Test Result Information Act ([place] Act 112) guidelines. Electronically signed by: Troy Platt M.D. 09/27/2020 9:56 AM Chest X-Ray 09/26/20 23:10 SINGLE VIEW CHEST CLINICAL HISTORY: Dyspnea on exertion. FINDINGS: An AP, portable, upright chest radiograph is compared to study dated 11/10/2019 and correlated with chest CT dated 04/07/2019. A 2-lead cardiac pacemaker is unchanged in position. The heart is enlarged noting atherosclerotic calcification of the thoracic aorta. The pulmonary vasculature is noncongested. Chronic interstitial thickening is similar to previous. There is bibasilar scarring/atelectasis. Trace loculated chronic pleural effusion is seen at the right lung base. No airspace consolidation is identified typical pneumonia. No pneumothorax is seen. The skeletal structures are osteopenic. The bony thorax is grossly intact. IMPRESSION: 1. Cardiomegaly and cardiac pacemaker. There is no radiographic evidence of congestive failure. 2. Chronic parenchymal changes as above with no acute abnormality identified. ACT 112: Negative or not required by law. Electronically signed by: Troy Platt M.D. 09/27/2020 7:33 AM PG Care Time/CCT Total # of Minutes Spent Total Time Spent with Patient: Total time spent is greater than 50% in coordination of care (as documented) at patient's floor/unit and/or counseling patient: Coding Level of Care Code None Diagnoses RUQ pain R10.11 Pulmonary emphysema J43.9 CKD (chronic kidney disease) stage 3, GFR 30-59 ml/min N18.3 GERD (gastroesophageal reflux disease) K21.9 Esophagitis presence: esophagitis presence not specified Atrial fibrillation I48.20 Atrial fibrillation type: unspecified chronic Hypertension I10 Hypertension type: essential hypertension Sleep apnea G47.30 Restless leg syndrome G25.81 (1) Atrial fibrillation Atrial fibrillation type: unspecified chronic Qualified Code(s): I48.20 - Chronic atrial fibrillation, unspecified (2) GERD (gastroesophageal reflux disease) Esophagitis presence: esophagitis presence not specified Qualified Code(s): K21.9 - Gastro-esophageal reflux disease without esophagitis (3) Hypertension Hypertension type: essential hypertension Qualified Code(s): I10 - Essential (primary) hypertension
[2020-09-27] MEDS: FAMOTIDINE 20 MG TAB PO SCH ×2 (08:41→20:53)
[2020-09-27] MEDS: POTASSIUM CHLORIDE CRTAB 20 MEQ TABCR PO SCH (08:41)
[2020-09-27] MEDS: rOPINIRole HCL 1 MG TABLET PO PRN (08:42)
[2020-09-27] MEDS: METOPROLOL SUCC 50MG EXT REL TAB PO SCH (08:42)
[2020-09-27] MEDS: ursodioL 300 MG CAP PO SCH ×2 (08:42→20:53)
[2020-09-27] MEDS: GABAPENTIN 100 MG CAP PO PRN (08:42)
[2020-09-27] MEDS: FUROSEMIDE 20 MG TAB PO SCH ×2 (08:42→08:53)
[2020-09-27] MEDS: UMECLIDINIUM/VILANTEROL 62.5/25MCG 7 PUFFS/INHALER INH SCH (08:47)
[2020-09-27] MEDS: FLUTICASONE FUROATE 100MCG 14 PUFFS/INHALER INH SCH (08:47)
[2020-09-27] MEDS ORDERED: NON-FORMULARY MEDICATION (Fluticasone-Umeclidin-Vilanter [Trelegy Ellipta] 100-62.5-25 mcg INH SCH (09:00)
[2020-09-27 09:22] LABS: Hemoglobin 13.8 g/dL (12.0-16.0); Mean Corpuscular Hemoglobin 32.3 pg (25-34); Mean Corpuscular Hgb Conc 33.7 g/dL (32-36); Mean Platelet Volume 9.5 fL (7.4-10.4); Platelet Count 250 K/uL (130-400); RDW Coefficient of Variation 13.3 % (11.5-14.5); RDW Standard Deviation 46.7 fL (36.4-46.3); Red Blood Count 4.27 M/uL (4.2-5.4); White Blood Count 7.89 K/uL (4.8-10.8)
[2020-09-27 09:23] LABS: ALC (manual) 0.75 K/uL (1.2-3.4); ANC (manual) 6.87 K/uL (1.4-6.5); Lymphocytes # (manual) 0.75 K/uL (1.2-3.4); Lymphocytes % (manual) 9.5 %; Monocytes # (manual) 0.27 K/uL (0.11-0.59); Monocytes % (manual) 3.4 %; Neutrophils # (manual) 6.87 K/uL (1.4-6.5); Neutrophils % (manual) 87.1 %
[2020-09-27 09:25] LABS: Alanine Aminotransferase 14 U/L (12-78); Albumin Level 3.1 gm/dl (3.4-5.0); Alkaline Phosphatase 132 U/L (45-117); BUN Creatinine Ratio 12.1 (10-20); Bilirubin,Total 1.2 mg/dl (0.2-1); Blood Urea Nitrogen 12 mg/dl (7-18); Calcium 8.9 mg/dl (8.5-10.1); Carbon Dioxide 28 mmol/L (21-32); Chloride 106 mmol/L (98-107); Creatinine Clr Calc Pharmacy 53.1 ml/min; Est GFR (African American) 64.6 ml/min; Est GFR (Non-African American) 55.8 ml/min; Glucose 95 mg/dl (70-99); Sodium 140 mmol/L (136-145); Total Protein 7.4 gm/dl (6.4-8.2)
--- NOTE | 2020-09-27 09:57 | CT Scan Report ---
CT SCAN OF THE ABDOMEN AND PELVIS WITH IV CONTRAST CLINICAL HISTORY: Right upper quadrant abdominal pain. COMPARISON STUDY: Abdominal CT dated 11/10/2019 and 08/03/2016. TECHNIQUE: Following the IV administration of 94 cc of Optiray 320, CT scan of the abdomen and pelvi s is performed from the lung bases to the proximal femora. Images are reviewed in the axial, sagittal , and coronal planes. IV contrast was administered without complication. A dose lowering technique wa s utilized adhering to the principles of ALARA. CT DOSE: 868.13 mGy.cm FINDINGS: Lung bases: The heart is enlarged and without pericardial effusion. Pacemaker leads are noted. There is a tiny hiatal hernia. The lung bases are clear noting bibasilar scarring/atelectasis. Liver: The contrast-enhanced liver is normal in size. Attenuation is heterogeneous with bandlike fibr osis in the subcapsular right lobe. Nodularity of the surface contour suggests changes of cirrhosis. There is mild intrahepatic biliary ductal dilatation. Pneumobilia is seen throughout the left lobe. T here is also gas within the common bile duct. The hepatic veins and portal veins are patent. Gallbladder: Surgically absent. Spleen: Normal in size and attenuation. Pancreas: Mildly atrophic and grossly unremarkable. Adrenal glands: A 1.5 cm left adrenal adenoma is unchanged. The right adrenal gland is normal in appe arance. Kidneys: The contrast enhanced kidneys are atrophic and without hydronephrosis. The kidneys enhance s ymmetrically. Abdominal vasculature: The abdominal aorta is normal in course and caliber noting moderate to advance d atherosclerotic calcification. Bowel: There is moderate sigmoid diverticulosis without CT evidence of acute diverticulitis. No bowel obstruction is seen. There is a duodenal diverticulum. The appendix is well-visualized and normal. Peritoneum: There is no intraperitoneal free air or abdominal ascites. A 4.1 x 2.3 cm low-attenuation lesion or fluid collection is again seen along the inferior aspect of the proximal duodenum on image #201. This is unchanged from 11/10/2019 but is new from 10/07/2016 examination. Soft tissue thickening /scarring along the right paracolic gutter is unchanged. Lymphadenopathy: None. Pelvic viscera: The bladder is normal as visualized. The endometrium appears thickened and heterogene ous for age measuring up to 13 mm. No adnexal lesion is seen. Skeletal structures: The skeletal structures are osteopenic. Mild to moderate lumbosacral spondylosis is observed. No lytic or blastic lesions are seen. IMPRESSION: 1. There are no acute infectious or inflammatory findings in the abdomen or pelvis. 2. Chronic hepatic changes with evidence of cirrhosis. 3. There is unchanged appearance of a 4.1 cm peripherally enhancing fluid collection along the inferi or aspect of the proximal duodenum. This is unchanged from 11/09/2020 but is new from older prior exam inations. This likely represents a pseudocyst or seroma. 4. The endometrium appears thickened and heterogeneous for age measuring up to 13 mm. This is not wel l evaluated by CT. Nonemergent/outpatient follow-up pelvic ultrasound and gynecology assessment is re commended. 5. Sigmoid diverticulosis without CT evidence of acute diverticular uterus. 6. Cardiomegaly and cardiac pacemaker. 7. Additional findings as above. ACT 112: Positive. There are findings on this exam that require communication between the performing entity and the patient following Patient Test Result Information Act ([place] Act 112) guidelines. Electronically signed by: Troy Platt M.D. 09/27/2020 9:56 AM
[2020-09-27] MEDS ORDERED: PIPERACILL/TAZOBAC CONSULT ACTIVE PRN (14:40)
--- NOTE | 2020-09-27 14:53 | Gastrointestinal Consultation ---
Date of Consultation September 27, 2020 Assessment & Plan (1) Acute cholangitis: With fever and RUQ worry about cholagitis developing secondary to bile duct obstruction. Recommend antibiotic coverage and referrral to tertiary center for ERCP elevated LFTs--TB and alk phos mildly elevated but give above symptoms and past history, suspect early bile duct obstruction, ERCP as above. History of Present Illness Reason for Consultation: cholangitis Requesting Physician: Kaitlynn Fong PA-C Attending Physician: Ling Martin MD History of Present Illness Pt known to me for recurent CBD obstuction secondary to stones with resulantat cholangitis. Ursodiol has been used as an outpt to help reduce this risk but has not prevented it. Pt has been very ill with cholanagitis in the past which progressed quickly. For this reason she presents early in the course of symptom s. Daughter present for H and P. Pt has developed typical symptoms of RUQ pain and fever. Fever about 100.5 but she states normally runs about 97. Pain at present is mild. Allergies Allergy/AdvReac Type Severity Reaction Status Date / Time No Known Allergies Allergy Verified 09/26/20 19:52 Home Medications Medication Instructions Recorded Confirmed Type acetaminophen 500 mg tablet 500 mg PO Q4H PRN 12/03/18 09/26/20 History aspirin 81 mg tablet,delayed 81 mg PO QAM 12/03/18 09/26/20 History release furosemide 20 mg tablet 20 mg PO QAM 12/03/18 09/26/20 History metoprolol succinate 50 mg 50 mg PO QAM 12/03/18 09/26/20 History tablet,extended release 24 hr ropinirole 1 mg tablet 1 mg PO QPM PRN tab 12/03/18 09/26/20 History famotidine 20 mg tablet 20 mg PO BID 12/16/18 09/26/20 History gabapentin 100 mg capsule 100 mg PO HS PRN 12/16/18 09/26/20 History levalbuterol tartrate 45 2 puffs INH Q4H PRN #15 gm 06/17/19 09/26/20 Rx mcg/actuation aerosol inhaler (Xopenex HFA) cholecalciferol (vitamin D3) 50 50 mcg PO DAILY 11/11/19 09/26/20 History mcg (2,000 unit) tablet (Vitamin D3) ursodiol 300 mg capsule 300 mg PO BID 11/11/19 09/26/20 History fluticasone fur. 100 mcg-umeclid 1 inh INHALATION QAM #60 ea 07/06/20 09/26/20 Rx 62.5 mcg-vilant 25 mcg inhalat.powder (Trelegy Ellipta) ascorbic acid (vitamin C) 500 mg 500 mg PO DAILY 09/26/20 09/26/20 History tablet (Vitamin C) levothyroxine 137 mcg tablet 137 mcg PO QAM 09/26/20 09/26/20 History potassium chloride 10 mEq 20 meq PO QAM 09/26/20 09/26/20 History capsule,extended release Patient History Medical History Acute dyspnea Atrial fibrillation Common bile duct (CBD) obstruction COPD (chronic obstructive pulmonary disease) Epigastric abdominal pain Fever GERD (gastroesophageal reflux disease) Hypertension Hypothyroidism associated with surgical procedure Obstructive sleep apnea Pacemaker Pulmonary emphysema Restless leg syndrome Solitary lung nodule Surgical History History of ERCP 12/30/18 Grade 1 view Mac 3 blade S/P cholecystectomy S/P thyroidectomy Family History Other Cancer Social History Smoking Status: Former smoker Tobacco Type: Cigarettes Cigarettes Per Day: 20; Second Hand Exposure: No; Hx Alcohol Use: No Hx Substance Use: No Preferred Language: Albanian Communication Ability: Effective 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 Beliefs That Will Affect Care: None marital status: Current Living Situation: Alone current occupational status: retired Feels Safe at Home: Yes Assistive Devices: Denture - Upper and Walker Review of Systems Review of Systems: All systems reviewed & are unremarkable except as noted in HPI & below Physical Exam Constitutional: WD/WN, vitals as above Eyes: PERRL, conjunctivae normal, anicteric sclerae ENMT: Ears: no external ear abnormality Neck: normal visual inspection and trachea midline Respiratory: normal respiratory effort, lungs clear to auscultation Cardiovascular: RRR, no murmur, no edema Gastrointestinal (Abdomen): pos bs, soft, no guarding nor rebound Musculoskeletal: no cyanosis or clubbing, extremities motor strength 5/5 Neurologic: PERRL, EOMI, accommodation nl, no face palsy, no dysarthria Psychiatric: A+Ox3, euthymic affect Results & Data ([facility]) Vital Signs (Past 12 Hours) Vital Signs Temp Pulse Resp BP Pulse Ox 09/27/20 07:41 37.0 C 71 18 116/70 94 09/27/20 03:25 36.5 C 77 16 150/84 H 93
--- NOTE | 2020-09-27 15:19 | Electrocardiogram Report ---
Test Reason : Blood Pressure : / mmHG Vent. Rate : 067 BPM Atrial Rate : 069 BPM P-R Int : 000 ms QRS Dur : 100 ms QT Int : 404 ms P-R-T Axes : 000 -63 054 degrees QTc Int : 426 ms Poor data quality, interpretation may be adversely affected Atrial fibrillation demand ventricular pacing with fusion beats Left anterior fascicular block Minimal voltage criteria for LVH, may be normal variant Nonspecific ST and T wave abnormality Abnormal ECG When compared with ECG of 10-NOV-2019 20:21, Atrial fibrillation has replaced Atrial flutter Nonspecific T wave abnormality, worse in Lateral leads Confirmed by Lemuel Hughes ([id number]) on 09/27/2020 3:19:11 PM Referred By: REFERRED SELF Confirmed By:Spenser Hughes
[2020-09-27] MEDS ORDERED: PIPERACILLIN/TAZOBACTAM 3.375 GM in DEXTROSE 5% 100 ML IV ONE (15:30)
[2020-09-27] MEDS: PIPERACILLIN/TAZOBACTAM 3.375 GM in DEXTROSE 5% 100 ML IV SCH (20:52)
[2020-09-28] MEDS: PIPERACILLIN/TAZOBACTAM 3.375 GM in DEXTROSE 5% 100 ML IV SCH ×3 (04:07→20:07)
[2020-09-28] MEDS: LEVOTHYROXINE SODIUM 137 MCG TABLET PO SCH (05:25)
[2020-09-28 07:07] LABS: Basophils # (auto) 0.05 K/uL (0-0.2); Basophils % (auto) 0.6 %; Eosinophils # (auto) 0.16 K/uL (0-0.5); Eosinophils % (auto) 2.1 %; Hematocrit (blood only) 39.8 % (37-47); Hemoglobin 13.4 g/dL (12.0-16.0); Immature Granulocytes # (auto) 0.02 K/uL (0.00-0.02); Immature Granulocytes % (auto) 0.3 %; Lymphocytes # (auto) 1.16 K/uL (1.2-3.4); Mean Corpuscular Hemoglobin 32.5 pg (25-34); Mean Corpuscular Hgb Conc 33.7 g/dL (32-36); Mean Corpuscular Volume 96.6 fL (80-100); Mean Platelet Volume 9.3 fL (7.4-10.4); Monocytes # (auto) 0.74 K/uL (0.11-0.59); Monocytes % (auto) 9.6 %; Neutrophils # (auto) 5.59 K/uL (1.4-6.5); Neutrophils % (auto) 72.4 %; Platelet Count 239 K/uL (130-400); RDW Coefficient of Variation 13.2 % (11.5-14.5); Red Blood Count 4.12 M/uL (4.2-5.4); White Blood Count 7.72 K/uL (4.8-10.8)
[2020-09-28 07:38] LABS: Albumin Level 2.9 gm/dl (3.4-5.0); BUN Creatinine Ratio 12.6 (10-20); Bilirubin Direct 0.3 mg/dl (0-0.2); Calcium 8.7 mg/dl (8.5-10.1); Est GFR (African American) 61.5 ml/min; Est GFR (Non-African American) 53.1 ml/min; Potassium 3.5 mmol/L (3.5-5.1)
[2020-09-28 07:41] LABS: Bilirubin,Total 0.9 mg/dl (0.2-1); Total Protein 6.6 gm/dl (6.4-8.2)
--- NOTE | 2020-09-28 08:07 | Gastroenterology Progress Note ---
Date of Service September 28, 2020 Assessment & Plan (1) RUQ pain: Plan: Concerns for acute cholangitis developing secondary to bile duct obstruction. Patient reports that decision was made not to transfer to tertiary care. Labs improving today. Continue antibiotic coverage and consider referral to tertiary center for ERCP if condition worsens (febrile or increasing white blood) elevated LFTs--improving, as above Please refer to supervising physician addendum for further recommendations. Admission and Anticipated Discharge Date Admission Date: September 27, 2020 Supervising Physician Co-Signing Physician Notes I have seen and examined the patient. I agree with note above by GUICHO Escobar except as noted below. HPI Pt with RUQ pain but improved elevated LFTS resolved. PE Abdomen pos bs, soft, mild guarding RUQ but no rebound A/P cholangitis elevated LFTS Improved so far on abx and supportive care. If remains stable in am could DC patient on oral abx. Dr Chavez is assuming GI care tomorrow am 0730. Subjective The patient is awake, alert, and oriented sitting at the bedside this morning. Reports that she had a good night. No fevers through the night. Reports RUQ pain improved with Tylenol during the night. Denies nausea or vomiting. Last b owel movement 09/25/2020. No melena or hematochezia with last BM. She reports she is passing flatus. Tolerating clear liquids. Reports she was told that it was decided that she would not be transferred and nursing concurs. Review of Systems Review of Systems: All systems reviewed & are unremarkable except as noted in HPI & below Physical Exam Gastrointestinal (Abdomen): Inspection/Auscultation: abdomen normal to inspec tion and normal bowel sounds Percussion/Palpation: + abdomen tender (RUQ) and abdomen soft; no guarding and abdomen not rigid Results & Data ([facility]) Vital Signs (Past 12 Hours) Vital Signs Temp Pulse Resp BP Pulse Ox 09/28/20 07:35 37.2 C 63 16 119/70 93 09/27/20 22:49 37.7 C H 75 20 119/66 96 Laboratory Results - last 24 hr 09/27/20 09/27/20 09/28/20 08:40 08:40 07:01 WBC 7.89 7.72 RBC 4.27 4.12 L Hgb 13.8 13.4 Hct 41.0 39.8 MCV 96.0 96.6 MCH 32.3 32.5 MCHC 33.7 33.7 RDW Std Deviation 46.7 H 47.0 H RDW Coeff of Agusto 13.3 13.2 Plt Count 250 239 MPV 9.5 9.3 Immature Gran % (Auto) 0.3 Neut % (Auto) 72.4 Lymph % (Auto) 15.0 [place] % (Auto) 9.6 Eos % (Auto) 2.1 Baso % (Auto) 0.6 Neut # (Auto) 5.59 Lymph # (Auto) 1.16 L [place] # (Auto) 0.74 H Eos # (Auto) 0.16 Baso # (Auto) 0.05 Immature Gran # (Auto) 0.02 Neutrophils % (Manual) 87.1 Lymphocytes % (Manual) 9.5 Monocytes % (Manual) 3.4 Neutrophils # (Manual) 6.87 H Total Absolute Neuts 6.87 H Lymphocytes # (Manual) 0.75 L Total Abs Lymphocytes 0.75 L Monocytes # (Manual) 0.27 Sodium 140 Potassium TNP Chloride 106 Carbon Dioxide 28 Anion Gap 5.0 BUN 12 Creatinine 0.95 Est Cr Clr Drug Dosing 53.1 Est GFR ( Amer) 64.6 Est GFR (Non-Af Amer) 55.8 BUN/Creatinine Ratio 12.1 Glucose 95 Calcium 8.9 Magnesium TNP Total Bilirubin 1.2 H Direct Bilirubin TNP AST TNP ALT 14 Alkaline Phosphatase 132 H Total Protein 7.4 Albumin 3.1 L 09/28/20 07:01 WBC RBC Hgb Hct MCV MCH MCHC RDW Std Deviation RDW Coeff of Agusto Plt Count MPV Immature Gran % (Auto) Neut % (Auto) Lymph % (Auto) [place] % (Auto) Eos % (Auto) Baso % (Auto) Neut # (Auto) Lymph # (Auto) [place] # (Auto) Eos # (Auto) Baso # (Auto) Immature Gran # (Auto) Neutrophils % (Manual) Lymphocytes % (Manual) Monocytes % (Manual) Neutrophils # (Manual) Total Absolute Neuts Lymphocytes # (Manual) Total Abs Lymphocytes Monocytes # (Manual) Sodium 139 Potassium 3.5 Chloride 110 H Carbon Dioxide 25 Anion Gap 4.0 BUN 12 Creatinine 0.99 Est Cr Clr Drug Dosing 51.0 Est GFR ( Amer) 61.5 Est GFR (Non-Af Amer) 53.1 BUN/Creatinine Ratio 12.6 Glucose 107 H Calcium 8.7 Magnesium Total Bilirubin 0.9 Direct Bilirubin 0.3 H AST 19 ALT 13 Alkaline Phosphatase 114 Total Protein 6.6 Albumin 2.9 L
--- NOTE | 2020-09-28 09:04 | Hospitalist Progress Note ---
Date of Service September 28, 2020 Assessment & Plan (1) RUQ pain: Plan: 80-year-old female presenting with 1 day of right upper quadrant pain, chills and fever at home. Patient is status post cholecystectomy but has intermittent episodes of cholangitis requiring ERCP with stone/sludge removal (most recently 2018, Mar 2019, Oct 2019/Nov 2019) On Ursodiol 300mg BID -- continued CTAP * 1. There are no acute infectious or inflammatory findings in the abdomen or pelvis. * 2. Chronic hepatic changes with evidence of cirrhosis. * 3. There is unchanged appearance of a 4.1 cm peripherally enhancing fluid collection along the inferior aspect of the proximal duodenum. This is unchanged from 11/09/2020 but is new from older prior examinations. This likely represents a pseudocyst or seroma. (LIPASE WNL) * 4. The endometrium appears thickened and heterogeneous for age measuring up to 13 mm. This is not well evaluated by CT. Nonemergent/outpatient follow-up pelvic ultrasound and gynecology assessment is recommended. * 5. Sigmoid diverticulosis without CT evidence of acute diverticular uterus. * 6. Cardiomegaly and cardiac pacemaker. * 7. Additional findings as above. Of note, prior elevations Tb/ALP were higher in past when she required intervention On admission, TB elevated to 1.3, ALP 142 GI consulted -- rec'd transfer as patient presents early in course prior to becoming sick, however did discuss with Dr. Blackburn from [facility] for transfer on 09/27 and felt no need for transfer at this time. Placed on Zosyn per recs and obtained Bcx and recs for Cipro for PO at d/c Zosyn continued WBC wnl (now no further neutrophils since yesterday's labs) TB now 0.9 (DB 0.3), ALP wnl 114 Pain improved Temp 37.7C last evening after tylenol 1 hour prior but nothing further Lipase wnl but will recheck to ensure stable given epigastric discomfort Discussed with GI this morning and ok to advance diet and continue abx and monitor overnight with possible d/c in AM Supportive care Tylenol prn Zofran prn Continue to monitor (2) Pulmonary emphysema: Plan: Patient denies SOB, cough or wheeze. She had a brief episode of hypoxia noted in ER after ambulation -Continue Trelegy -Continue Xopenex -Continue to monitor (3) CKD (chronic kidney disease) stage 3, GFR 30-59 ml/min: Plan: BUN and Cr baseline -Avoid nephrotoxic agents -follow chemistry (4) GERD (gastroesophageal reflux disease): Plan: Chronic -Continue Pepcid (5) Atrial fibrillation: Plan: Rate controlled. Pacemaker in place - nearing end of battery life. Interrogated in ER revealing permanent atrial fibrillation. Patient follows with Cardiology - last seen on 08/19/20. -Continue Metoprolol -No anticoagulation as patient with history of retroperitoneal bleed while on anticoagulation in April 2016. (6) Hypertension: Plan: Chronic. Well controlled -Continue Metoprolol -Continue to monitor (7) Sleep apnea: Plan: Chronic -Patient no longer uses CPAP as her machine was recalled -She should be started on machine on outpatient - does not wish to use one here (8) Restless leg syndrome: Plan: Chronic -Continue Ropinirole 1mg po qPM PRN Plan: Ppx - SCDs No chemical given prior retroperitoneal bleed in past Code - DNR/DNI per discussion with patient Dispo - changed to admit continue to monitor on abx --> if continues to remain stable, possible d/c in AM on oral If worsened, will need tx to [facility] for ERCP Admission and Anticipated Discharge Date Admission Date: September 27, 2020 Supervising Physician Co-Signing Physician Notes [place] Supervision Note: I did not personally see or examine the patient today, but I verified all irizarry points of AUSTIN Fong's assessment and plan with the following exceptions/additions: None Subjective Patient evaluated this morning. Feeling well. Tolerated full liquid diet with minimal discomfort but she notes this has improved from yesterday. Temp 37.7C after tylenol last evening -- discussed with GI and they are ok with continuing abx and monitoring overnight with possible d/c tomorrow on oral antibiotics with follow up if continues to improve. She notes she believes she tolerated Cipro in the past no issue but noted loss of taste that never returned after using that. No chest pain, shortness of breath, nausea, vomiting. Noted she had a bowel movement this morning which was normal for her. She is to alert nursing if any worsening abdominal pain, nausea, vomiting or fever/chills and will reach back out to [facility], but given labs normalized will con tinue current course. Questions/concerns addressed at this time. Review of Systems Review of Systems: All systems reviewed & are unremarkable except as noted in HPI & below Physical Exam Physical Exam: General: patient resting comfortably, NAD, non-toxic in appearance, AA&O x 4 Skin: warm, dry, intact, no rashes or lesions, No jaundice or icterus HEENT: NC/AT, PERRL, EOMI, anicteric sclera, conjunctiva without injection, external ear normal to inspection and nontender, nares patent, moist mucus membranes, dentition intact, no oropharyngeal lesions, neck supple, trachea midline, no LAD, no thyromegaly, no JVD Heart: +S1/S2, regular, no m/r/g Lungs: equal air entry bilaterally, + Crackles in bilateral bases, right more so than left, on room air Abd: +BS, soft, ND, no masses/organomegaly/ascites, Tenderness in right upper quadrant and epigastric region on deep palpation, minimal otherwise No rebound or guarding Ext: warm, 2+ pulses in UE/LE bilaterally, no clubbing/cyanosis or edema Neuro: nonfocal, patient AA&O x 4, speech intact, no facial droop, moving all extremities on command with equal strength 5/5 Results & Data Results & Data ([facility]) Vital Signs (Past 12 Hours) Vital Signs Temp Pulse Resp BP Pulse Ox 09/28/20 07:35 37.2 C 63 16 119/70 93 09/27/20 22:49 37.7 C H 75 20 119/66 96 Laboratory Results 09/28/20 09/28/20 09/27/20 Range/Units 07:01 07:01 08:40 WBC 7.72 (4.8-10.8) K/uL RBC 4.12 L (4.2-5.4) M/uL Hgb 13.4 (12.0-16.0) g/dL Hct 39.8 (37-47) % MCV 96.6 (80-100) fL MCH 32.5 (25-34) pg MCHC 33.7 (32-36) g/dL RDW Std Deviation 47.0 H (36.4-46.3) fL RDW Coeff of Agusto 13.2 (11.5-14.5) % Plt Count 239 (130-400) K/uL MPV 9.3 (7.4-10.4) fL Immature Gran % (Auto) 0.3 % Neut % (Auto) 72.4 % Lymph % (Auto) 15.0 % Haakon % (Auto) 9.6 % Eos % (Auto) 2.1 % Baso % (Auto) 0.6 % Neut # (Auto) 5.59 (1.4-6.5) K/uL Lymph # (Auto) 1.16 L (1.2-3.4) K/uL Haakon # (Auto) 0.74 H (0.11-0.59) K/uL Eos # (Auto) 0.16 (0-0.5) K/uL Baso # (Auto) 0.05 (0-0.2) K/uL Immature Gran # (Auto) 0.02 (0.00-0.02) K/uL Neutrophils % (Manual) % Lymphocytes % (Manual) % Monocytes % (Manual) % Neutrophils # (Manual) (1.4-6.5) K/uL Total Absolute Neuts (1.4-6.5) K/uL Lymphocytes # (Manual) (1.2-3.4) K/uL Total Abs Lymphocytes (1.2-3.4) K/uL Monocytes # (Manual) (0.11-0.59) K/uL Sodium 139 140 (136-145) mmol/L Potassium 3.5 TNP Chloride 110 H 106 (98-107) mmol/L Carbon Dioxide 25 28 (21-32) mmol/L Anion Gap 4.0 5.0 (3-11) BUN 12 12 (7-18) mg/dl Creatinine 0.99 0.95 (0.6-1.2) mg/dl Est Cr Clr Drug Dosing 51.0 53.1 ml/min Est GFR ( Amer) 61.5 64.6 ml/min Est GFR (Non-Af Amer) 53.1 55.8 ml/min BUN/Creatinine Ratio 12.6 12.1 (10-20) Glucose 107 H 95 (70-99) mg/dl Calcium 8.7 8.9 (8.5-10.1) mg/dl Magnesium TNP Total Bilirubin 0.9 1.2 H (0.2-1) mg/dl Direct Bilirubin 0.3 H TNP AST 19 TNP ALT 13 14 (12-78) U/L Alkaline Phosphatase 114 132 H (45-117) U/L Total Protein 6.6 7.4 (6.4-8.2) gm/dl Albumin 2.9 L 3.1 L (3.4-5.0) gm/dl 09/27/20 Range/Units 08:40 WBC 7.89 (4.8-10.8) K/uL RBC 4.27 (4.2-5.4) M/uL Hgb 13.8 (12.0-16.0) g/dL Hct 41.0 (37-47) % MCV 96.0 (80-100) fL MCH 32.3 (25-34) pg MCHC 33.7 (32-36) g/dL RDW Std Deviation 46.7 H (36.4-46.3) fL RDW Coeff of Agusto 13.3 (11.5-14.5) % Plt Count 250 (130-400) K/uL MPV 9.5 (7.4-10.4) fL Immature Gran % (Auto) % Neut % (Auto) % Lymph % (Auto) % Haakon % (Auto) % Eos % (Auto) % Baso % (Auto) % Neut # (Auto) (1.4-6.5) K/uL Lymph # (Auto) (1.2-3.4) K/uL Haakon # (Auto) (0.11-0.59) K/uL Eos # (Auto) (0-0.5) K/uL Baso # (Auto) (0-0.2) K/uL Immature Gran # (Auto) (0.00-0.02) K/uL Neutrophils % (Manual) 87.1 % Lymphocytes % (Manual) 9.5 % Monocytes % (Manual) 3.4 % Neutrophils # (Manual) 6.87 H (1.4-6.5) K/uL Total Absolute Neuts 6.87 H (1.4-6.5) K/uL Lymphocytes # (Manual) 0.75 L (1.2-3.4) K/uL Total Abs Lymphocytes 0.75 L (1.2-3.4) K/uL Monocytes # (Manual) 0.27 (0.11-0.59) K/uL Sodium (136-145) mmol/L Potassium Chloride (98-107) mmol/L Carbon Dioxide (21-32) mmol/L Anion Gap (3-11) BUN (7-18) mg/dl Creatinine (0.6-1.2) mg/dl Est Cr Clr Drug Dosing ml/min Est GFR ( Amer) ml/min Est GFR (Non-Af Amer) ml/min BUN/Creatinine Ratio (10-20) Glucose (70-99) mg/dl Calcium (8.5-10.1) mg/dl Magnesium Total Bilirubin (0.2-1) mg/dl Direct Bilirubin AST ALT (12-78) U/L Alkaline Phosphatase (45-117) U/L Total Protein (6.4-8.2) gm/dl Albumin (3.4-5.0) gm/dl PG Care Time/CCT Total # of Minutes Spent Total Time Spent with Patient: Total time spent is greater than 50% in coordination of care (as documented) at patient's floor/unit and/or counseling patient: Coding Level of Care Code 92871 Subseq Hosp Care Lvl 2 Diagnoses RUQ pain R10.11 Pulmonary emphysema J43.9 CKD (chronic kidney disease) stage 3, GFR 30-59 ml/min N18.3 GERD (gastroesophageal reflux disease) K21.9 Esophagitis presence: esophagitis presence not specified Atrial fibrillation I48.20 Atrial fibrillation type: unspecified chronic Hypertension I10 Hypertension type: essential hypertension Sleep apnea G47.30 Restless leg syndrome G25.81 (1) Atrial fibrillation Atrial fibrillation type: unspecified chronic Qualified Code(s): I48.20 - Chronic atrial fibrillation, unspecified (2) GERD (gastroesophageal reflux disease) Esophagitis presence: esophagitis presence not specified Qualified Code(s): K21.9 - Gastro-esophageal reflux disease without esophagitis (3) Hypertension Hypertension type: essential hypertension Qualified Code(s): I10 - Essential (primary) hypertension
[2020-09-28] MEDS: ursodioL 300 MG CAP PO SCH ×2 (09:05→20:08)
[2020-09-28] MEDS: UMECLIDINIUM/VILANTEROL 62.5/25MCG 7 PUFFS/INHALER INH SCH (09:05)
[2020-09-28] MEDS: METOPROLOL SUCC 50MG EXT REL TAB PO SCH (09:05)
[2020-09-28] MEDS: FLUTICASONE FUROATE 100MCG 14 PUFFS/INHALER INH SCH (09:05)
[2020-09-28] MEDS: FAMOTIDINE 20 MG TAB PO SCH ×2 (09:05→20:08)
[2020-09-28] MEDS: POTASSIUM CHLORIDE CRTAB 20 MEQ TABCR PO SCH (09:06)
[2020-09-28] MEDS: FUROSEMIDE 20 MG TAB PO SCH (09:06)
[2020-09-29] MEDS: rOPINIRole HCL 1 MG TABLET PO PRN ×2 (01:35→09:05)
[2020-09-29] MEDS: PIPERACILLIN/TAZOBACTAM 3.375 GM in DEXTROSE 5% 100 ML IV SCH ×2 (04:59→13:06)
[2020-09-29] MEDS: LEVOTHYROXINE SODIUM 137 MCG TABLET PO SCH (05:01)
[2020-09-29 06:51] LABS: Basophils # (auto) 0.04 K/uL (0-0.2); Basophils % (auto) 0.5 %; Eosinophils % (auto) 5.2 %; Hematocrit (blood only) 37.6 % (37-47); Hemoglobin 12.4 g/dL (12.0-16.0); Immature Granulocytes # (auto) 0.02 K/uL (0.00-0.02); Immature Granulocytes % (auto) 0.3 %; Lymphocytes # (auto) 1.04 K/uL (1.2-3.4); Lymphocytes % (auto) 13.5 %; Mean Corpuscular Hemoglobin 31.7 pg (25-34); Mean Corpuscular Volume 96.2 fL (80-100); Mean Platelet Volume 9.3 fL (7.4-10.4); Monocytes # (auto) 0.89 K/uL (0.11-0.59); Monocytes % (auto) 11.6 %; Neutrophils % (auto) 68.9 %; Platelet Count 252 K/uL (130-400); RDW Coefficient of Variation 13.1 % (11.5-14.5); RDW Standard Deviation 45.9 fL (36.4-46.3); Red Blood Count 3.91 M/uL (4.2-5.4); White Blood Count 7.69 K/uL (4.8-10.8)
[2020-09-29 07:20] LABS: Albumin Level 2.6 gm/dl (3.4-5.0); BUN Creatinine Ratio 10.5 (10-20); Bilirubin Direct 0.2 mg/dl (0-0.2); Calcium 8.4 mg/dl (8.5-10.1); Creatinine Clr Calc Pharmacy 60.1 ml/min; Est GFR (Non-African American) 64.7 ml/min; Potassium 3.1 mmol/L (3.5-5.1)
[2020-09-29 07:31] LABS: Bilirubin,Total 0.9 mg/dl (0.2-1); Thyroid Stimulating Hormone 0.258 uIu/ml (0.300-4.500); Total Protein 6.4 gm/dl (6.4-8.2)
--- NOTE | 2020-09-29 08:11 | Gastroenterology Progress Note ---
Date of Service September 29, 2020 Assessment & Plan (1) RUQ pain: Plan: Cholangitis - Improved so far on antibiotics and supportive care. Labs improving today. Last note from Dr. Aponte said if patient improved could consider DC patient on oral antibiotics today. elevated LFTs--improved, as above Please refer to supervising physician addendum for further recommendations. Admission and Anticipated Discharge Date Admission Date: September 28, 2020 Supervising Physician Co-Signing Physician Notes I have reviewed the chart and findings with the advanced practice provider and I agree with the assessment and plan as outlined. Subjective The patient is awake, alert, and oriented lying in bed this morning. Reports that she had a good night. No fevers through the night. Reports mild and improving RUQ pain. Denies nausea or vomiting. Last bowel movement 09/28/2020 x2. No melena or hematochezia. She reports she is passing flatus. Tolerating soft foods. Reports overall feeling good. Review of Systems Review of Systems: All systems reviewed & are unremarkable except as noted in HPI & below Physical Exam Gastrointestinal (Abdomen): Inspection/Auscultation: abdomen normal to inspection and normal bowel sounds Percussion/Palpation: + abdomen tender (R UQ) and abdomen soft; no guarding and abdomen not rigid Results & Data ([facility]) Vital Signs (Past 12 Hours) Vital Signs Temp Pulse Resp BP Pulse Ox 09/29/20 07:54 36.5 C 74 17 125/74 93 09/28/20 21:47 36.8 C 65 18 120/70 94 Laboratory Results Laboratory Results - last 24 hr 09/28/20 09/29/20 09/29/20 07:03 06:23 06:23 WBC 7.69 RBC 3.91 L Hgb 12.4 Hct 37.6 MCV 96.2 MCH 31.7 MCHC 33.0 RDW Std Deviation 45.9 RDW Coeff of Agusto 13.1 Plt Count 252 MPV 9.3 Immature Gran % (Auto) 0.3 Neut % (Auto) 68.9 Lymph % (Auto) 13.5 [place] % (Auto) 11.6 Eos % (Auto) 5.2 Baso % (Auto) 0.5 Neut # (Auto) 5.30 Lymph # (Auto) 1.04 L [place] # (Auto) 0.89 H Eos # (Auto) 0.40 Baso # (Auto) 0.04 Immature Gran # (Auto) 0.02 Sodium 140 Potassium 3.1 L Chloride 109 H Carbon Dioxide 23 Anion Gap 8.0 BUN 9 Creatinine 0.84 Est Cr Clr Drug Dosing 60.1 Est GFR ( Amer) 75.0 Est GFR (Non-Af Amer) 64.7 BUN/Creatinine Ratio 10.5 Glucose 101 H Calcium 8.4 L Total Bilirubin 0.9 Direct Bilirubin 0.2 AST 14 L ALT 13 Alkaline Phosphatase 104 Total Protein 6.4 Albumin 2.6 L Lipase 75 63 L TSH 0.258 L
[2020-09-29] MEDS ORDERED: POTASSIUM CHLORIDE CRTAB 20 MEQ TABCR PO STA (08:36)
--- NOTE | 2020-09-29 08:44 | Discharge Summary ---
Date of Service September 29, 2020 Admission HPI Per Admitting Provider Marianne Zhang is an 80-year-old female with history of COPD, CHF, atrial fibrillation, hypertension presenting with right upper quadrant pain. Patient had a cholecystectomy performed in July 2016. Since her cholecystectomy she has had gallstone removal x3 (December 2018, March 2019, October 2019). Patient presents today with 1 day of right upper quadrant pain. Pain is fairly severe, radiates into her back and is similar to her prior episodes of gallstones. No relation to p.o. intake. She has had chills as well as fever of 100.5 at home. She denies nausea, vomiting, diarrhea. No additional complaints . ER course: Tylenol, fentanyl Admission Exam Per Admitting Provider General: patient resting comfortably, NAD, non-toxic in appearance, AA&O x 4 Skin: warm, dry, intact, no rashes or lesions, No jaundice or icterus HEENT: NC/AT, PERRL, EOMI, anicteric sclera, conjunctiva without injection, external ear normal to inspection and nontender, nares patent, moist mucus membranes, dentition intact, no oropharyngeal lesions, neck supple, trachea midline, no LAD, no thyromegaly, no JVD Heart: +S1/S2, regular, no m/r/g Lungs: equal air entry bilaterally, + Crackles in bilateral bases, right more so than left Abd: +BS, soft, ND, no masses/organomegaly/ascites, Tenderness in right upper quadrant and epigastric region with no rebound or guarding Ext: warm, 2+ pulses in UE/LE bilaterally, no clubbing/cyanosis or edema Neuro: nonfocal, patient AA&O x 4, speech intact, no facial droop, moving all extremities on command with equal strength 5/5 Principal Diagnosis Acute cholangitis Discharge Exam Constitutional WD/WN, vitals as above Eyes PERRL, conjunctivae normal, anicteric sclerae ENMT Ears: no external ear abnormality exophthalmos noted Neck normal visual inspection and trachea midline Respiratory normal respiratory effort, lungs clear to auscultation Cardiovascular RRR, no murmur, no edema Gastrointestinal (Abdomen) Inspection/Auscultation: abdomen normal to inspection and normal bowel sounds Percussion/Palpation: + abdomen tender (RUQ) and abdomen soft; no guarding and abdomen not rigid Musculoskeletal no cyanosis or clubbing, extremities motor strength 5/5 Skin Warm and dry Neurologic PERRL, EOMI, accommodation nl, no face palsy, no dysarthria Psychiatric A+Ox3, euthymic affect Discharge Data Allergies Allergy/AdvReac Type Severity Reaction Status Date / Time No Known Allergies Allergy Verified 09/26/20 19:52 Consultations 09/27/20 00:51 ED Decision to Admit Stat 09/27/20 11:03 Consult Gastroenterology Routine Ordered Studies Abdomen Ultrasound 09/26/20 20:51 ULTRASOUND RIGHT UPPER QUADRANT ABDOMEN CLINICAL HISTORY: Right upper quadrant abdominal pain. Reported history of cholelithiasis. COMPARISON STUDY: Abdominal CT dated 11/10/2019. TECHNIQUE: Real-time, grayscale, and color flow sonography of the right upper quadrant of the abdomen was performed. Images are reviewed in the transverse and longitudinal planes. FINDINGS: Liver: The liver is normal in size and heterogeneous in echotexture. Nodularity of the surface contour suggests change of cirrhosis. There is no intrahepatic biliary ductal dilatation. Linear echogenic foci within the left lobe are consistent with pneumobilia. The main portal vein is patent. Gallbladder: The gallbladder is surgically absent. The common bile duct is not well-visualized, likely due to pneumobilia. Pancreas: Visualized portions of the pancreatic head and body are normal in appearance. The splenic vein is patent. Right kidney: Survey images of the right kidney demonstrate cortical atrophy. Echotexture is normal. There is no hydronephrosis. Ascites: None. IMPRESSION: 1. No acute sonographic abnormality is identified in the right upper quadrant noting status post cholecystectomy. 2. Pneumobilia is noted. 3. Cirrhotic liver morphology. ACT 112: Negative or not required by law. Electronically signed by: Troy Platt M.D. 09/27/2020 7:08 AM Abdomen/Pelvis CT 09/26/20 22:56 CT SCAN OF THE ABDOMEN AND PELVIS WITH IV CONTRAST CLINICAL HISTORY: Right upper quadrant abdominal pain. COMPARISON STUDY: Abdominal CT dated 11/10/2019 and 08/03/2016. TECHNIQUE: Following the IV administration of 94 cc of Optiray 320, CT scan of the abdomen and pelvis is performed from the lung bases to the proximal femora. Images are reviewed in the axial, sagittal, and coronal planes. IV contrast was administered without complication. A dose lowering technique was utilized adhering to the principles of ALARA. CT DOSE: 868.13 mGy.cm FINDINGS: Lung bases: The heart is enlarged and without pericardial effusion. Pacemaker leads are noted. There is a tiny hiatal hernia. The lung bases are clear noting bibasilar scarring/atelectasis. Liver: The contrast-enhanced liver is normal in size. Attenuation is heterogeneous with bandlike fibrosis in the subcapsular right lobe. Nodularity of the surface contour suggests changes of cirrhosis. There is mild intrahepatic biliary ductal dilatation. Pneumobilia is seen throughout the left lobe. There is also gas within the common bile duct. The hepatic veins and portal veins are patent. Gallbladder: Surgically absent. Spleen: Normal in size and attenuation. Pancreas: Mildly atrophic and grossly unremarkable. Adrenal glands: A 1.5 cm left adrenal adenoma is unchanged. The right adrenal gland is normal in appearance. Kidneys: The contrast enhanced kidneys are atrophic and without hydronephrosis. The kidneys enhance symmetrically. Abdominal vasculature: The abdominal aorta is normal in course and caliber noting moderate to advanced atherosclerotic calcification. Bowel: There is moderate sigmoid diverticulosis without CT evidence of acute diverticulitis. No bowel obstruction is seen. There is a duodenal diverticulum. The appendix is well-visualized and normal. Peritoneum: There is no intraperitoneal free air or abdominal ascites. A 4.1 x 2.3 cm low-attenuation lesion or fluid collection is again seen along the inferior aspect of the proximal duodenum on image #201. This is unchanged from 11/10/2019 but is new from 10/07/2016 examination. Soft tissue thickening/scarring along the right paracolic gutter is unchanged. Lymphadenopathy: None. Pelvic viscera: The bladder is normal as visualized. The endometrium appears thickened and heterogeneous for age measuring up to 13 mm. No adnexal lesion is seen. Skeletal structures: The skeletal structures are osteopenic. Mild to moderate lumbosacral spondylosis is observed. No lytic or blastic lesions are seen. IMPRESSION: 1. There are no acute infectious or inflammatory findings in the abdomen or pelvis. 2. Chronic hepatic changes with evidence of cirrhosis. 3. There is unchanged appearance of a 4.1 cm peripherally enhancing fluid collection along the inferior aspect of the proximal duodenum. This is unchanged from 11/09/2020 but is new from older prior examinations. This likely represents a pseudocyst or seroma. 4. The endometrium appears thickened and heterogeneous for age measuring up to 13 mm. This is not well evaluated by CT. Nonemergent/outpatient follow-up pelvic ultrasound and gynecology assessment is recommended. 5. Sigmoid diverticulosis without CT evidence of acute diverticular uterus. 6. Cardiomegaly and cardiac pacemaker. 7. Additional findings as above. ACT 112: Positive. There are findings on this exam that require communication between the performing entity and the patient following Patient Test Result Information Act ([place] Act 112) guidelines. Electronically signed by: Troy Platt M.D. 09/27/2020 9:56 AM Chest X-Ray 09/26/20 23:10 SINGLE VIEW CHEST CLINICAL HISTORY: Dyspnea on exertion. FINDINGS: An AP, portable, upright chest radiograph is compared to study dated 11/10/2019 and correlated with chest CT dated 04/07/2019. A 2-lead cardiac pacemaker is unchanged in position. The heart is enlarged noting atherosclerotic calcification of the thoracic aorta. The pulmonary vasculature is noncongested. Chronic interstitial thickening is similar to previous. There is bibasilar scarring/atelectasis. Trace loculated chronic pleural effusion is seen at the right lung base. No airspace consolidation is identified typical pneumonia. No pneumothorax is seen. The skeletal structures are osteopenic. The bony thorax is grossly intact. IMPRESSION: 1. Cardiomegaly and cardiac pacemaker. There is no radiographic evidence of congestive failure. 2. Chronic parenchymal changes as above with no acute abnormality identified. ACT 112: Negative or not required by law. Electronically signed by: Troy Platt M.D. 09/27/2020 7:33 AM Hospital Course (1) Acute cholangitis: 80-year-old female presenting with 1 day of right upper quadrant pain, chills and fever at home. Patient is status post cholecystectomy but has intermittent episodes of cholangitis requiring ERCP with stone/sludge removal (most recently 2018, Mar 2019, Oct 2019/Nov 2019) On Ursodiol 300mg BID [employer], continued CTAP * 1. There are no acute infectious or inflammatory findings in the abdomen or pelvis. * 2. Chronic hepatic changes with evidence of cirrhosis. * 3. There is unchanged appearance of a 4.1 cm peripherally enhancing fluid collection along the inferior aspect of the proximal duodenum. This is unchanged from 11/09/2020 but is new from older prior examinations. This likely represents a pseudocyst or seroma. (LIPASE WNL) * 4. The endometrium appears thickened and heterogeneous for age measuring up to 13 mm. This is not well evaluated by CT. Nonemergent/outpatient follow-up pelvic ultrasound and gynecology assessment is recommended. * 5. Sigmoid diverticulosis without CT evidence of acute diverticular uterus. * 6. Cardiomegaly and cardiac pacemaker. * 7. Additional findings as above. Of note, prior elevations Tb/ALP were higher in past when she required intervention On admission, TB elevated to 1.3, ALP 142 GI consulted -- rec'd transfer as patient presents early in course prior to becoming sick, however did discuss with Dr. Blackburn from [facility] for transfer on 09/27 and felt no need for transfer at this time and recommended patient be placed on Zosyn obtain blood cultures and can be managed conservatively discharged on oral antibiotics Blood cultures were obtained which remain negative to date LFTs normalized lipase remain Tolerated normal diet Patient's white count remained afebrile however did have some minimal intake discharge Discussed with GI team this morning and felt patient was able to be discharged on extended course of Cipro and Flagyl at discharge for an additional 7 days and will need follow-up with GI as an outpatient Discussed with patient that if she develops worsening right upper quadrant pain, fevers, chills or any other symptoms similar to previous that she should return to the emergency department LYNDSAY If recurrence of abd pain, inability to keep up with PO or fever, will need to return to ER but if that occurs this week, would recommend patient being transferred out from emergency department for ERCP given history and no providers on this week able to perform. (2) RUQ pain: See above Decreased but still present however was able to tolerate regular diet and LFTs are normalized Count within normal limits patient remained afebrilesee above regarding discharge on oral antibiotics (3) Pulmonary emphysema: Patient denied SOB, cough or wheeze. She had a brief episode of hypoxia noted in ER after ambulation -Continued Trelegy -Continued Xopenex -Continued to monitor Stable on room air (4) CKD (chronic kidney disease) stage 3, GFR 30-59 ml/min: BUN and Cr baseline (5) GERD (gastroesophageal reflux disease): Chronic -Continued Pepcid (6) Atrial fibrillation: Rate controlled. Pacemaker in place - nearing end of battery life. Interrogated in ER revealing permanent atrial fibrillation. Patient follows with Cardiology - last seen on 08/19/20. -Continued Metoprolol -No anticoagulation as patient with history of retroperitoneal bleed while on anticoagulation in April 2016. (7) Hypertension: Chronic. Well controlled -Continued Metoprolol (8) Sleep apnea: Chronic -Patient no longer uses CPAP as her machine was recalled Recommend following up with PCP about getting a new CPAP (9) Restless leg syndrome: Chronic -Continued Ropinirole 1mg po qPM PRN (10) Abnormal finding: The endometrium appears thickened and heterogeneous for age measuring up to 13 mm. This is not well evaluated by CT Nonemergent/outpatient follow-up pelvic ultrasound and gynecology assessment is recommended (11) Hypothyroidism associated with surgical procedure: Status post thyroidectomy for history of Graves' disease on 137mcg daily TSH low 0.258 and rec to decrease to 125mcg daily and follow up with PCP about repeating TFT in 4-6 weeks as an outpatient for further adjustment Ppx - SCDs No chemical given prior retroperitoneal bleed in past Code - DNR/DNI per discussion with patient Discharged home on oral antibiotics as above Total Time Total Time Spent Total Time Spent (In Minutes): 60 Discharge Plan Discharge Items Patient Disposition: Home - Self-Care Reason For Visit: RUQ PAIN Discharge Diagnosis: Cholangitis, Recurrnt Goals: You have been hospitalized for an acute medical problem. During your stay at [facility], we have made an effort to correct the problem that brought you to the hospital while keeping you as comfortable as possible. Medications were used to bring your condition under control and your discharge instructions will include directions for any medications you should take after leaving the hospital. Please make sure you see your Primary Care Provider as part of your follow up plan. Activity: Resume your previous activity Non-emergency contact: Primary Care Provider and Bottle Sorter Call non-emergency contact if: you have any medication questions, your symptoms worsen, your pain is concerning for you and you have a fever Follow-up/Referrals: Charles Connolly [Primary Care Provider] - 10/03/20 11:15 am Sherwin Aponte [Physician] - 10/28/20 11:00 am (1-2 weeks 1st opening availabe with Dr. Montiel, the office will call you if there is a cancellation. ) Diet: Heart Healthy Addtl Attending Provider Instructions: Admitted for cholangitis, recurrent. There were no evidence of stones on imaging. Initially recommendations for transfer but given previous ERCP review and current imaging by [place] [facility] provider, felt antibiotics and supportive care more appropriate to monitor response. Your liver enzymes have normalized and your white count has remained stable and you have been without fever. It has been decided that it is reasonable for discharge on oral antibiotics to complete the course and you will need to have follow up with GI at discharge to monitor your progress. You will be sent on the following regimen for an additional 7 days to complete treatment: * Ciprofloxacin 500mg by mouth TWICE daily * Metronidazole 500mg by mouth THREE times daily Please note that the metronidazole does frequently cause GI upset unless specifically right upper quadrant pain or similar symptoms to previous cholangitis episodes this may be cause for discomfort and should not be alarming but he should notify your provider if this happens. Please note that any alcohol use while on metronidazole may cause projectile vomiting and that should be avoided. Your thyroid function was checked and may be slightly over corrected. Your levothyroxine has been decreased to 125mcg daily and you should have repeat thyroid function testing with your primary care provider in 4-6 weeks as an outpatient. You should follow up with your PCP in the 1-2 weeks to monitor your progress after hospitalization. There were some thickening of your endometrium (of uterus) and it is recommended to have outpatient follow up imaging for further evaluation on a non-emergent basis. Please return to the emergency department with any fevers, increased pain, inability to keep up with oral intake, or for any other symptoms that are concerning for you. It has been a pleasure being a part of the medical team providing for you while you have been in the hospital. Take care! Pending Studies at Discharge: Yes Studies:: Blood cultures -- no growth to date Stand-Alone Forms: My [facility] [employer], Smoking Cessation Medications and DC Order Prescriptions: New levothyroxine 125 mcg capsule 125 mcg PO DAILY Qty: 30 RF: 0 Continued Trelegy Ellipta 100-62.5-25 mcg blister with device 1 inh inhalation QAM Qty: 60 RF: 5 acetaminophen 500 mg tablet 500 mg PO Q4H PRN (Reason: Pain) RF: 0 aspirin 81 mg tablet,delayed release (DR/EC) 81 mg PO QAM RF: 0 metoprolol succinate 50 mg tablet extended release 24 hr 50 mg PO QAM RF: 0 ropinirole 1 mg tablet 1 mg PO QPM PRN (Reason: RESTLESS LEGS) RF: 0 furosemide 20 mg tablet 20 mg PO QAM RF: 0 levalbuterol tartrate [Xopenex HFA] 45 mcg/actuation HFA aerosol inhaler 2 puffs INH Q4H PRN (Reason: Shortness Of Breath) Qty: 15 RF: 11 famotidine 20 mg tablet 20 mg PO BID RF: 0 gabapentin 100 mg capsule 100 mg PO HS PRN (Reason: Pain) RF: 0 ursodiol 300 mg capsule 300 mg PO BID RF: 0 cholecalciferol (vitamin D3) [Vitamin D3] 50 mcg (2,000 unit) Tablet 50 mcg PO DAILY RF: 0 potassium chloride 10 mEq capsule, extended release 20 meq PO QAM RF: 0 ascorbic acid (vitamin C) [Vitamin C] 500 mg Tablet 500 mg PO DAILY RF: 0 Discontinued levothyroxine 137 mcg tablet 137 mcg PO QAM RF: 0 Discharge Orders: Discharge Order (Routine); Ordered 09/29/20 Ordered By: Kaitlynn Downey/Other Patient Handouts: Abdominal Pain Admission Data Admit Date/Time: 09/28/20 11:18 Attending Provider: Ling Martin Admit Provider: Amy Luther Primary Care Provider: Charles Connolly Other Providers: Amy Luther ; Sherwin Aponte Other Interventions: Discharge Summary Assessment (RN) Last Done: 09/29/20 12:26 Supervising Physician Co-Signing Physician Notes PA Supervision Note: I personally saw and examined the patient. I verified all irizarry points and agree with AUSTIN Fong with the following exceptions and/or additions: S- patient feeling much improved, no abdominal pain. LFTs have normalized, tolerating regular diet O- Vitals reviewed Gen: AAOx3, NAD HEENT: Anicteric sclerae, EOMI CV: RRR no mgr nl S1S2 Pulm: CTAB no wcr Abd: +BS soft NT ND no masses or hernias Ext: No edema, 2+ DP pulses Skin: No rashes, warm/dry Neuro: Full strength throughout A/S-[id number]-old female here with early acute choledocholithiasis suspected with early cholangitis but now much improved, resolved. No intervention needed. Close observation after discharge. Coding Level of Care Code D/C DAY MANAGEMENT >30 MINS Diagnoses RUQ pain R10.11 Pulmonary emphysema J43.9 CKD (chronic kidney disease) stage 3, GFR 30-59 ml/min N18.3 GERD (gastroesophageal reflux disease) K21.9 Esophagitis presence: esophagitis presence not specified Atrial fibrillation I48.20 Atrial fibrillation type: unspecified chronic Hypertension I10 Hypertension type: essential hypertension Sleep apnea G47.30 Restless leg syndrome G25.81 Abnormal finding R68.89 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 Acute cholangitis K83.09
[2020-09-29] MEDS: FUROSEMIDE 20 MG TAB PO SCH (09:05)
[2020-09-29] MEDS: GABAPENTIN 100 MG CAP PO PRN (09:05)
[2020-09-29] MEDS: METOPROLOL SUCC 50MG EXT REL TAB PO SCH (09:05)
[2020-09-29] MEDS: ursodioL 300 MG CAP PO SCH (09:05)
[2020-09-29] MEDS: FAMOTIDINE 20 MG TAB PO SCH (09:05)
[2020-09-29] MEDS: FLUTICASONE FUROATE 100MCG 14 PUFFS/INHALER INH SCH (09:06)
[2020-09-29] MEDS: UMECLIDINIUM/VILANTEROL 62.5/25MCG 7 PUFFS/INHALER INH SCH (09:06)
[2020-09-29] MEDS: POTASSIUM CHLORIDE CRTAB 20 MEQ TABCR PO SCH (09:07)
== END 2020-09-29 15:37 | disposition home or self-care (01) | DRG 445 ==
LOC: 3W 19:02 → ED 19:02 → SUATTDRO 09-27 01:09 → 3W 09-27 02:58

== ENCOUNTER 2022-02-10 15:39 | Inpatient (IN) ==
[2022-02-10 16:34] LABS: Hemoglobin 13.5 g/dl (12.0-16.0); Mean Corpuscular Hemoglobin 32.2 pg (25.0-34.0); Mean Corpuscular Hgb Conc 33.8 g/dL (32.0-36.0); Mean Corpuscular Volume 95.5 fL (80.0-100.0); Mean Platelet Volume 9.5 fL (9.4-12.3); Platelet Count 309 K/uL (130-400); RDW Standard Deviation 45.1 fL (36.4-46.3); Red Blood Count 4.19 M/uL (3.93-5.22); White Blood Count 17.67 K/ul (4.8-10.8)
[2022-02-10 16:47] LABS: INR 1.1 (0.9-1.1); Partial Thromboplastin Ratio 1.1; Partial Thromboplastin Time 30.3 Seconds (21.0-31.0); Prothrombin Time 11.7 Seconds (9.0-12.0)
[2022-02-10 16:54] LABS: Basophils # (auto) 0.05 K/uL (0-0.2); Basophils % (auto) 0.3 %; Eosinophils # (auto) 0.02 K/uL (0-0.50); Eosinophils % (auto) 0.1 %; Immature Granulocytes # (auto) 0.15 K/uL (0.00-0.02); Immature Granulocytes % (auto) 0.8 %; Lymphocytes # (auto) 0.62 K/uL (1.2-3.4); Lymphocytes % (auto) 3.5 %; Monocytes # (auto) 0.89 K/uL (0.24-0.82); Neutrophils # (auto) 15.94 K/uL (1.4-6.5); Neutrophils % (auto) 90.3 %
[2022-02-10 16:55] LABS: Alanine Aminotransferase 7 U/L (7-52); Albumin Level 3.6 gm/dl (3.4-5.0); Alkaline Phosphatase 88 U/L (34-104); Anion Gap 12 (3-11); Aspartate Aminotransferase 12 U/L (13-39); BUN Creatinine Ratio 18.1 (10-20); Bilirubin,Total 1.8 mg/dl (0.2-1.0); Blood Urea Nitrogen 15 mg/dl (6-23); Calcium 8.9 mg/dl (8.5-10.1); Carbon Dioxide 27 mmol/L (21-32); Chloride 100 mmol/L (98-107); Est GFR (African American) 75.6 ml/min; Est GFR (Non-African American) 65.2 ml/min; Globulin 3.7 gm/dl (2.5-4.0); Glucose 128 mg/dl (70-99(Fasting)); Magnesium 2.1 mg/dl (1.7-2.4); Potassium 3.7 mmol/L (3.5-5.1); Sodium 139 mmol/L (136-145); Total Protein 7.3 gm/dl (6.0-8.3)
--- NOTE | 2022-02-10 17:14 | Emergency Department Note ---
History of Present Illness General Chief complaint: Illness Stated complaint: COUGH, CONGESTION Time Seen by Provider: 02/10/22 17:03 Source: patient and family Mode of arrival: EMS Limitations: no limitations History of Present Illness Provider complaint: cough, sob This is an 81-year-old female who presents emergency department due to concern for 1 week of worsening cough, fatigue, decreased appetite, shortness of breath. Patient states she does have mild COPD, however does not wear oxygen at home. She states she does have 2 inhalers that she uses and she has been using her albuterol inhaler more this week compared to prior. She states she has been trying to stay hydrated despite not having much of an appetite. Unknown if any recent close sick contact, [facility] Patient states cough is typically productive of a yellow or ashraf sputum, no hemoptysis noted. She states she does have some mild nasal congestion, and sore throat. She denies vomiting or diarrhea. Protocol started by nursing staff prior to my evaluation. EMS reported pt 88% on RA, placed on oxygen via NC. Home Medications Medication Instructions Recorded Confirmed Type acetaminophen 500 mg tablet 500 mg PO Q4H PRN Pain 12/03/18 02/10/22 History metoprolol succinate 50 mg 50 mg PO QAM 12/03/18 02/10/22 History tablet,extended release 24 hr famotidine 20 mg tablet 20 mg PO BID 12/16/18 02/10/22 History cholecalciferol (vitamin D3) 50 50 mcg PO DAILY 11/11/19 02/10/22 History mcg (2,000 unit) tablet (Vitamin D3) ursodiol 300 mg capsule 300 mg PO BID 11/11/19 02/10/22 History ascorbic acid (vitamin C) 500 mg 500 mg PO DAILY 09/26/20 02/10/22 History tablet (Vitamin C) levothyroxine 125 mcg capsule 125 mcg PO DAILY #30 caps 09/29/20 02/10/22 Rx gabapentin 100 mg capsule 100 mg PO BID Pain 02/13/21 02/10/22 History potassium chloride 10 mEq 10 meq PO QAM 02/13/21 02/10/22 History capsule,extended release ropinirole 1 mg tablet 1 mg PO QPM RESTLESS LEGS 02/13/21 02/10/22 History apixaban 2.5 mg tablet (Eliquis) 2.5 mg PO BID #180 tabs 12/25/21 02/10/22 Rx fluticasone fur. 100 mcg-umeclid 1 inh inhalation DAILY 01/18/22 02/10/22 History 62.5 mcg-vilant 25 mcg inhalat.powder (Trelegy Ellipta) albuterol sulfate 90 mcg/actuation 2 puff inhalation QID PRN 02/10/22 02/10/22 History aerosol inhaler Shortness Of Breath Or Wheezing furosemide 40 mg tablet 40 mg PO DAILY 02/10/22 02/10/22 History prednisone 10 mg tablet 10 mg PO .TAPER UD 02/10/22 02/10/22 History Allergies Allergy/AdvReac Type Severity Reaction Status Date / Time No Known Allergies Allergy Verified 02/10/22 17:25 Past Med/Surg History Medical History (Updated 02/11/22 @ 00:25 by Milly Guillermo DO) Ascending cholangitis Atrial fibrillation Bacteremia Choledocholithiasis with obstruction CKD (chronic kidney disease) stage 3, GFR 30-59 ml/min COPD (chronic obstructive pulmonary disease) GERD (gastroesophageal reflux disease) Hypertension Hypothyroidism associated with surgical procedure Obstructive sleep apnea Pacemaker Pancreatitis Pulmonary emphysema Restless leg syndrome Retroperitoneal bleed Solitary lung nodule Tachy-juli syndrome Surgical History History of ERCP 12/30/18 Grade 1 view Mac 3 blade S/P cholecystectomy S/P thyroidectomy Family History Other Cancer Social History Smoking Status: Former smoker Tobacco Type: Cigarettes Cigarettes Per Day: 20; Second Hand Exposure: Yes; Do You Dip or Chew Tobacco: No; Tobacco Cessation Education Requested by Patient: No Hx Alcohol Use: No Hx Substance Use: No Preferred Language: Persian Communication Ability: Effective Accounting Practice Manager Required: No Beliefs That Will Affect Care: None marital status: Current Living Situation: Other Current Living Situation Comment: senior appartment building current occupational status: retired Other Information That Helps Us Care for You: No Feels Safe at Home: Yes Safety Concerns: Feels Safe At This Time Assistive Devices: Denture - Upper and Walker Review of Systems A total of 10 systems reviewed and were otherwise negative All systems reviewed & are unremarkable except as noted in HPI & below Physical Exam Vital Signs Vital Signs - 24 hr 02/10/22 15:44 02/10/22 16:42 02/10/22 18:06 Temperature 37.6 C H Temperature Source Oral Pulse Rate 83 67 Pulse Rate [Apical] Pulse Rate from SpO2 Sensor Pulse Rhythm Regular Respiratory Rate 20 18 Respiratory Effort / Characteristics Non-Labored Respiratory Depth Normal Respiratory Pattern Regular Blood Pressure 160/73 H Blood Pressure [Left Arm] Blood Pressure Mean 102 Blood Pressure Mean [Left Arm] Blood Pressure Position Sitting Pulse Oximetry 94 97 Oxygen Delivery Method Nasal Cannula Nasal Cannula Nasal Cannula Oxygen Flow Rate 4 4 4 Sepsis Recent Fever Within 48 Hours No Sepsis New/Unexplained Change in Mental Status No Sepsis Action Taken by Nursing No Action Required Oxygen Flow Rate - Titration 3 02/10/22 18:06 02/10/22 19:00 02/10/22 19:09 Temperature Temperature Source Pulse Rate 75 Pulse Rate [Apical] 82 Pulse Rate from SpO2 Sensor 73 Pulse Rhythm Respiratory Rate 20 28 H Respiratory Effort / Characteristics SOB on Exertion Respiratory Depth Respiratory Pattern Blood Pressure Blood Pressure [Left Arm] 135/63 Blood Pressure Mean Blood Pressure Mean [Left Arm] 87 Blood Pressure Position Pulse Oximetry 92 93 93 Oxygen Delivery Method Nasal Cannula Nasal Cannula Oxygen Flow Rate 3 3 3 Sepsis Recent Fever Within 48 Hours Sepsis New/Unexplained Change in Mental Status Sepsis Action Taken by Nursing Oxygen Flow Rate - Titration GENERAL: alert, well appearing, well nourished, no distress, non-toxic EYE EXAM: normal conjunctiva, PERRL and EOM's grossly intact, mild proptosis noted bilaterally OROPHARYNX: no exudate, no erythema, lips, buccal mucosa, and tongue normal and mucous membranes are dry NECK: supple, no nuchal rigidity, no adenopathy, non-tender LUNGS: Clear to auscultation. Normal chest wall mechanics, no w/r/r HEART: no murmurs, S1 normal and S2 normal ABDOMEN: abdomen soft, non-tender, normo-active bowel sounds, no masses, no rebound or guarding. BACK: Back is symmetrical on inspection and there is no deformity, no midline tenderness, no CVA tenderness. SKIN: no rashes and no bruising UPPER EXTREMITIES: upper extremities are grossly normal. FROM, nml pulses b/l. LOWER EXTREMITIES: No pitting edema. FROM, nml pulses b/l. NEURO EXAM: Normal sensorium, cranial nerves II-XII grossly intact, normal speech, no gross weakness of arms, no gross weakness of legs. Gross sensation intact. Course Administered Medications Albuterol (Albut/Ipratrop 3mg/0.5mg Neb 3 Ml Vial) 3 ml NEB Q4R JENNIFER; Protocol Stop: 03/12/22 22:59 Last Admin: 02/10/22 21:58 Dose: 3 ml Documented By: JERMAINE Apixaban (Apixaban 2.5 Mg Tab) 2.5 mg PO BID JENNIFER Stop: 03/12/22 21:59 Last Admin: 02/10/22 22:21 Dose: 2.5 mg Documented By: ELENA Famotidine (Famotidine 20 Mg Tab) 20 mg PO BID JENNIFER Stop: 03/12/22 21:59 Last Admin: 02/10/22 22:21 Dose: 20 mg Documented By: ELENA Gabapentin (Gabapentin 100 Mg Cap) 100 mg PO BID JENNIFER Stop: 03/12/22 21:59 Last Admin: 02/10/22 22:21 Dose: 100 mg Documented By: ELENA Guaifenesin (Guaifenesin 600 Mg Tabcr) 1,200 mg PO Q12 JENNIFER Stop: 03/12/22 21:59 Last Admin: 02/10/22 22:20 Dose: 1,200 mg Documented By: ELENA Prednisone (Prednisone 20 Mg Tab) 40 mg PO DAILY JENNIFER Stop: 02/14/22 09:01 Last Admin: 02/10/22 22:18 Dose: 40 mg Documented By: ELENA Ropinirole HCl (Ropinirole Hcl 1 Mg Tablet) 1 mg PO QPM JENNIFER Stop: 03/12/22 22:09 Last Admin: 02/10/22 22:18 Dose: 1 mg Documented By: SMN Ursodiol (Ursodiol 300 Mg Cap) 300 mg PO BID JENNIFER Stop: 03/12/22 22:14 Last Admin: 02/10/22 23:05 Dose: 300 mg Documented By: SMN Discontinued Medications Albuterol (Albut/Ipratrop 3mg/0.5mg Neb 3 Ml Vial) 3 ml NEB NOW STA; Protocol Stop: 02/10/22 17:17 Last Admin: 02/10/22 17:30 Dose: 3 ml Documented By: SLB Azithromycin (Azithromycin 250 Mg Tab) 500 mg PO NOW ONE Stop: 02/10/22 17:34 Last Admin: 02/10/22 17:41 Dose: 500 mg Documented By: GORAN Ceftriaxone Sodium 1,000 mg/ (Dextrose) 50 mls @ 100 mls/hr IV NOW STA Stop: 02/10/22 18:02 Last Infusion: 02/10/22 19:25 Dose: 0 mls/hr Documented By: Admin: 02/10/22 18:42 Dose: 100 mls/hr Documented By: SEBLE Medical Decision Making Differential Diagnosis Differential diagnoses includes but is not limited to pneumonia, bronchitis, COPD/Asthma exacerbation, pneumothorax, pulmonary embolism, congestive heart failure, acute coronary syndrome Medical Records Attestation: I reviewed the patient's medical records. Home Medications Current Medication List: was personally reviewed by me Laboratory Data Attestation: I reviewed the patient's lab results. Result diagrams: 02/10/22 16:21 02/10/22 16:21 Lab Results 02/10/22 02/10/22 02/10/22 Range/Units 16:21 16:21 16:21 WBC 17.67 H (4.8-10.8) K/ul RBC 4.19 (3.93-5.22) M/uL Hgb 13.5 (12.0-16.0) g/dl Hct 40.0 (34.1-44.9) % MCV 95.5 (80.0-100.0) fL MCH 32.2 (25.0-34.0) pg MCHC 33.8 (32.0-36.0) g/dL RDW Std Deviation 45.1 (36.4-46.3) fL RDW Coeff of Agusto 13.0 (11.5-14.5) % Plt Count 309 (130-400) K/uL MPV 9.5 (9.4-12.3) fL Immature Gran % (Auto) 0.8 % Neut % (Auto) 90.3 % Lymph % (Auto) 3.5 % Nuckolls % (Auto) 5.0 % Eos % (Auto) 0.1 % Baso % (Auto) 0.3 % Neut # (Auto) 15.94 H (1.4-6.5) K/uL Lymph # (Auto) 0.62 L (1.2-3.4) K/uL Nuckolls # (Auto) 0.89 H (0.24-0.82) K/uL Eos # (Auto) 0.02 (0-0.50) K/uL Baso # (Auto) 0.05 (0-0.2) K/uL Immature Gran # (Auto) 0.15 H (0.00-0.02) K/uL PT 11.7 (9.0-12.0) Seconds INR 1.1 (0.9-1.1) APTT 30.3 (21.0-31.0) Seconds PTT Ratio 1.1 Sodium 139 (136-145) mmol/L Potassium 3.7 (3.5-5.1) mmol/L Chloride 100 (98-107) mmol/L Carbon Dioxide 27 (21-32) mmol/L Anion Gap 12 H (3-11) BUN 15 (6-23) mg/dl Creatinine 0.83 (0.6-1.2) mg/dl Est Cr Clr Drug Dosing Not Reportable Est GFR ( Amer) 75.6 ml/min Est GFR (Non-Af Amer) 65.2 ml/min BUN/Creatinine Ratio 18.1 (10-20) Glucose 128 H (70-99(Fasting)) mg/dl Lactate (0.4-2.0) mmol/L Calcium 8.9 (8.5-10.1) mg/dl Magnesium 2.1 (1.7-2.4) mg/dl Total Bilirubin 1.8 H (0.2-1.0) mg/dl AST 12 L (13-39) U/L ALT 7 (7-52) U/L Alkaline Phosphatase 88 (34-104) U/L Total Protein 7.3 (6.0-8.3) gm/dl Albumin 3.6 (3.4-5.0) gm/dl Globulin 3.7 (2.5-4.0) gm/dl Albumin/Globulin Ratio 1.0 (0.9-2) Procalcitonin (0-0.5) ng/ml Adenovirus (PCR) (NotDetected) B. pertussis DNA (PCR) (NotDetected) B.parapertussis DNA PCR (NotDetected) C. pneumoniae DNA (PCR) (NotDetected) Coronavirus OC43 (PCR) (NotDetected) Coronavirus HKU1 (PCR) (NotDetected) Coronavirus 229E (PCR) (NotDetected) SARS-CoV-2 (PCR) (Negative) Coronavirus NL63 (PCR) (NotDetected) Human Metapneumovir PCR (NotDetected) Influenza Type A (PCR) (Neg) Influenza Type B (PCR) (Neg) M. pneumoniae (PCR) (NotDetected) Parainfluenza 1 (PCR) (NotDetected) Parainfluenza 2 (PCR) (NotDetected) Parainfluenza 3 (PCR) (NotDetected) Parainfluenza 4 (PCR) (NotDetected) RSV (RT-PCR) (Neg) RSV (PCR) (NotDetected) Entero/Rhino (PCR) (NotDetected) 02/10/22 02/10/22 02/10/22 Range/Units 16:21 16:21 17:44 WBC (4.8-10.8) K/ul RBC (3.93-5.22) M/uL Hgb (12.0-16.0) g/dl Hct (34.1-44.9) % MCV (80.0-100.0) fL MCH (25.0-34.0) pg MCHC (32.0-36.0) g/dL RDW Std Deviation (36.4-46.3) fL RDW Coeff of Agusto (11.5-14.5) % Plt Count (130-400) K/uL MPV (9.4-12.3) fL Immature Gran % (Auto) % Neut % (Auto) % Lymph % (Auto) % Nuckolls % (Auto) % Eos % (Auto) % Baso % (Auto) % Neut # (Auto) (1.4-6.5) K/uL Lymph # (Auto) (1.2-3.4) K/uL Nuckolls # (Auto) (0.24-0.82) K/uL Eos # (Auto) (0-0.50) K/uL Baso # (Auto) (0-0.2) K/uL Immature Gran # (Auto) (0.00-0.02) K/uL PT (9.0-12.0) Seconds INR (0.9-1.1) APTT (21.0-31.0) Seconds PTT Ratio Sodium (136-145) mmol/L Potassium (3.5-5.1) mmol/L Chloride (98-107) mmol/L Carbon Dioxide (21-32) mmol/L Anion Gap (3-11) BUN (6-23) mg/dl Creatinine (0.6-1.2) mg/dl Est Cr Clr Drug Dosing Est GFR ( Amer) ml/min Est GFR (Non-Af Amer) ml/min BUN/Creatinine Ratio (10-20) Glucose (70-99(Fasting)) mg/dl Lactate 0.8 (0.4-2.0) mmol/L Calcium (8.5-10.1) mg/dl Magnesium (1.7-2.4) mg/dl Total Bilirubin (0.2-1.0) mg/dl AST (13-39) U/L ALT (7-52) U/L Alkaline Phosphatase (34-104) U/L Total Protein (6.0-8.3) gm/dl Albumin (3.4-5.0) gm/dl Globulin (2.5-4.0) gm/dl Albumin/Globulin Ratio (0.9-2) Procalcitonin (0-0.5) ng/ml Adenovirus (PCR) Not Detected (NotDetected) B. pertussis DNA (PCR) Not Detected (NotDetected) B.parapertussis DNA PCR Not Detected (NotDetected) C. pneumoniae DNA (PCR) Not Detected (NotDetected) Coronavirus OC43 (PCR) Not Detected (NotDetected) Coronavirus HKU1 (PCR) Not Detected (NotDetected) Coronavirus 229E (PCR) Not Detected (NotDetected) SARS-CoV-2 (PCR) NEGATIVE Not Detected (Negative) Coronavirus NL63 (PCR) Not Detected (NotDetected) Human Metapneumovir PCR Not Detected (NotDetected) Influenza Type A (PCR) Negative Not Detected (Neg) Influenza Type B (PCR) Negative Not Detected (Neg) M. pneumoniae (PCR) Not Detected (NotDetected) Parainfluenza 1 (PCR) Not Detected (NotDetected) Parainfluenza 2 (PCR) Not Detected (NotDetected) Parainfluenza 3 (PCR) Not Detected (NotDetected) Parainfluenza 4 (PCR) Not Detected (NotDetected) RSV (RT-PCR) Negative (Neg) RSV (PCR) Not Detected (NotDetected) Entero/Rhino (PCR) Not Detected (NotDetected) 02/10/22 Range/Units 17:44 WBC (4.8-10.8) K/ul RBC (3.93-5.22) M/uL Hgb (12.0-16.0) g/dl Hct (34.1-44.9) % MCV (80.0-100.0) fL MCH (25.0-34.0) pg MCHC (32.0-36.0) g/dL RDW Std Deviation (36.4-46.3) fL RDW Coeff of Agusto (11.5-14.5) % Plt Count (130-400) K/uL MPV (9.4-12.3) fL Immature Gran % (Auto) % Neut % (Auto) % Lymph % (Auto) % Nuckolls % (Auto) % Eos % (Auto) % Baso % (Auto) % Neut # (Auto) (1.4-6.5) K/uL Lymph # (Auto) (1.2-3.4) K/uL Nuckolls # (Auto) (0.24-0.82) K/uL Eos # (Auto) (0-0.50) K/uL Baso # (Auto) (0-0.2) K/uL Immature Gran # (Auto) (0.00-0.02) K/uL PT (9.0-12.0) Seconds INR (0.9-1.1) APTT (21.0-31.0) Seconds PTT Ratio Sodium (136-145) mmol/L Potassium (3.5-5.1) mmol/L Chloride (98-107) mmol/L Carbon Dioxide (21-32) mmol/L Anion Gap (3-11) BUN (6-23) mg/dl Creatinine (0.6-1.2) mg/dl Est Cr Clr Drug Dosing Est GFR ( Amer) ml/min Est GFR (Non-Af Amer) ml/min BUN/Creatinine Ratio (10-20) Glucose (70-99(Fasting)) mg/dl Lactate (0.4-2.0) mmol/L Calcium (8.5-10.1) mg/dl Magnesium (1.7-2.4) mg/dl Total Bilirubin (0.2-1.0) mg/dl AST (13-39) U/L ALT (7-52) U/L Alkaline Phosphatase (34-104) U/L Total Protein (6.0-8.3) gm/dl Albumin (3.4-5.0) gm/dl Globulin (2.5-4.0) gm/dl Albumin/Globulin Ratio (0.9-2) Procalcitonin 0.10 (0-0.5) ng/ml Adenovirus (PCR) (NotDetected) B. pertussis DNA (PCR) (NotDetected) B.parapertussis DNA PCR (NotDetected) C. pneumoniae DNA (PCR) (NotDetected) Coronavirus OC43 (PCR) (NotDetected) Coronavirus HKU1 (PCR) (NotDetected) Coronavirus 229E (PCR) (NotDetected) SARS-CoV-2 (PCR) (Negative) Coronavirus NL63 (PCR) (NotDetected) Human Metapneumovir PCR (NotDetected) Influenza Type A (PCR) (Neg) Influenza Type B (PCR) (Neg) M. pneumoniae (PCR) (NotDetected) Parainfluenza 1 (PCR) (NotDetected) Parainfluenza 2 (PCR) (NotDetected) Parainfluenza 3 (PCR) (NotDetected) Parainfluenza 4 (PCR) (NotDetected) RSV (RT-PCR) (Neg) RSV (PCR) (NotDetected) Entero/Rhino (PCR) (NotDetected) Imaging Data Radiologist's Impression: Chest X-Ray 02/10/22 15:47 XR chest 1V portable CLINICAL HISTORY: SOB TECHNIQUE: Single frontal radiograph of the chest was obtained. Comparison: Comparison is made to chest radiograph 09/26/2020 and CTA chest 04/07/2019 FINDINGS: Dual lead pacemaker is seen. Cardiomegaly is noted. The aortic arch is calcified. Reticular interstitial opacities are seen. No evidence of pleural effusion or pneumothorax. IMPRESSION: Cardiac megaly is noted. No airspace opacity is seen to suggest. ACT 112: Negative or not required by law. Electronically signed by: Jeffery Campbell M.D. 02/10/2022 6:10 PM ECG Data Attestation: I personally reviewed and interpreted this ECG as follows: Indication: + SOB/dyspnea Rate (beats per minute): 70 Rhythm: + atrial fibrillation ECG Intervals/blocks: + Normal QRS and + Normal QT ECG Kersey: + Left axis deviation ECG ST segments: + Nonspecific ST abnormalities MDM Narrative An order was placed for continuous cardiac monitoring. The monitor shows a rate of _78__ with a.fib_ rhythm. This is an elderly female who presents due to concern for upper respiratory symptoms over the course of the last week, worsening with increased fatigue and shortness of breath. Patient found to be hypoxic on room air by EMS and she was placed on oxygen via nasal cannula and improved by arrival here. She does not typically wear oxygen at home and does have underlying COPD. Chest x-ray concerning for evolving pneumonia per my interpretation, however read by radiology as negative for focal infiltrate. She was started on antibiotics for presumed CAP. Nasal swab negative. Labs been drawn and sent, IV established, patient placed on telemetry per nurse protocol prior to my evaluation. Patient's labs were reviewed with her and family at bedside. She was given a DuoNeb treatment here which she felt helped as she stated she had difficulty using her MDIs at home due to her persistent cough. Patient was cautiously rehydrated and she did appear clinically dry. Blood cultures, procalcitonin, and lactic acid added as a precaution due to risk of sepsis. Patient is chronically anticoagulated with history of atrial fibrillation. I do not suspect occult PE. I do not suspect other acute cardiac etiology at this time. Patient and family updated on all results, verbalized understanding, and were agreement with plan for additional inpatient evaluation and monitoring. Impression & Plan Acute dyspnea, COPD exacerbation, Pneumonia, Hypoxia Discharge Plan Visit Data Chief Complaint: Illness Stated Complaint: COUGH, CONGESTION ED Provider: Milly Guillermo Discharge Problem: Acute dyspnea, COPD exacerbation, Pneumonia, Hypoxia Patient Disposition: Admitted As Inpatient Discharge Instructions Interventions: ED Discharge Assessment Last Done: 02/10/22 20:45
[2022-02-10] MEDS ORDERED: ALBUT/IPRATROP 3MG/0.5MG NEB 3 ML VIAL NEB STA (17:16)
[2022-02-10 17:21] LABS: Influenza A virus by PCR Negative (Neg); Influenza B virus by PCR Negative (Neg); RSV by PCR Negative (Neg); SARS CoV2 RNA(COVID-19) Ceph NEGATIVE (Negative)
[2022-02-10] MEDS ORDERED: cefTRIAXone SODIUM 1,000 MG in DEXTROSE 5% AD-VAN 50 ML IV STA (17:33)
[2022-02-10] MEDS ORDERED: AZITHROMYCIN 250 MG TAB PO ONE (17:33)
--- NOTE | 2022-02-10 18:11 | XRay Report ---
XR chest 1V portable CLINICAL HISTORY: SOB TECHNIQUE: Single frontal radiograph of the chest was obtained. Comparison: Comparison is made to chest radiograph 09/26/2020 and CTA chest 04/07/2019 FINDINGS: Dual lead pacemaker is seen. Cardiomegaly is noted. The aortic arch is calcified. Reticular interstit ial opacities are seen. No evidence of pleural effusion or pneumothorax. IMPRESSION: Cardiac megaly is noted. No airspace opacity is seen to suggest. ACT 112: Negative or not required by law. Electronically signed by: Jeffery Campbell M.D. 02/10/2022 6:10 PM
--- NOTE | 2022-02-10 18:26 | History & Physical Report ---
Date of Service February 10, 2022 History of Present Illness Chief Complaint: Illness Primary Care Provider: Charles Connolly Marianne is an 81 year old female with a PMH significant for afib (not on anticoagulation due to previous retroperitoneal bleeds in 2017), SSS S/P dual chamber pacemaker placement, HTN, COPD, sleep apnea (on positional therapy), GERD, CKD, hypothyroidism, and restless leg syndrome who presented to the [facility] ED on 02/10/22 with complaints of cough and congestion. In the ED the patient was found to be afebrile, hemodynamically stable, but hypoxic on RA? Labs were remarkable for a Leukocytosis of 17 with left shift of 15, stable Hgb and platelets, stable renal function and electrolytes, AG of 12 with bicarb of 27, Total bili of 1.8 with ATS of 12, ALT of 7, and Alk Phos of 88, Covid, influenza, and RSV negative. Chest xray was read as "Cardiomegaly is noted. No airspace opacity is seen to suggest." but it appears that the patient has a component of pulmonary vascular congestion and possible consolidation in the RLL. Prior to admission the patient was given a DuoNeb treatment, a dose of azithromycin, and a dose of ceftriaxone. Allergies Allergy/AdvReac Type Severity Reaction Status Date / Time No Known Allergies Allergy Verified 02/10/22 17:25 Home Medications Medication Instructions Recorded Confirmed Type acetaminophen 500 mg tablet 500 mg PO Q4H PRN Pain 12/03/18 02/10/22 History metoprolol succinate 50 mg 50 mg PO QAM 12/03/18 02/10/22 History tablet,extended release 24 hr famotidine 20 mg tablet 20 mg PO BID 12/16/18 02/10/22 History cholecalciferol (vitamin D3) 50 50 mcg PO DAILY 11/11/19 02/10/22 History mcg (2,000 unit) tablet (Vitamin D3) ursodiol 300 mg capsule 300 mg PO BID 11/11/19 02/10/22 History ascorbic acid (vitamin C) 500 mg 500 mg PO DAILY 09/26/20 02/10/22 History tablet (Vitamin C) levothyroxine 125 mcg capsule 125 mcg PO DAILY #30 caps 09/29/20 02/10/22 Rx gabapentin 100 mg capsule 100 mg PO BID Pain 02/13/21 02/10/22 History potassium chloride 10 mEq 10 meq PO QAM 02/13/21 02/10/22 History capsule,extended release ropinirole 1 mg tablet 1 mg PO QPM RESTLESS LEGS 02/13/21 02/10/22 History apixaban 2.5 mg tablet (Eliquis) 2.5 mg PO BID #180 tabs 12/25/21 02/10/22 Rx fluticasone fur. 100 mcg-umeclid 1 inh inhalation DAILY 01/18/22 02/10/22 History 62.5 mcg-vilant 25 mcg inhalat.powder (Trelegy Ellipta) albuterol sulfate 90 mcg/actuation 2 puff inhalation QID PRN 02/10/22 02/10/22 History aerosol inhaler Shortness Of Breath Or Wheezing furosemide 40 mg tablet 40 mg PO DAILY 02/10/22 02/10/22 History prednisone 10 mg tablet 10 mg PO .TAPER UD 02/10/22 02/10/22 History Past Med/Surg History Medical History Acute dyspnea Atrial fibrillation Common bile duct (CBD) obstruction COPD (chronic obstructive pulmonary disease) ARGUELLO (dyspnea on exertion) Epigastric abdominal pain Fever GERD (gastroesophageal reflux disease) Hypertension Hypothyroidism associated with surgical procedure Obstructive sleep apnea Pacemaker Pulmonary emphysema Restless leg syndrome Solitary lung nodule Surgical History History of ERCP 12/30/18 Grade 1 view Mac 3 blade S/P cholecystectomy S/P thyroidectomy Family History Other Cancer Social History Smoking Status: Former smoker Tobacco Type: Cigarettes Cigarettes Per Day: 20; Second Hand Exposure: No; Hx Alcohol Use: No Hx Substance Use: No Preferred Language: Colombian Communication Ability: Effective Product Assembler Required: No Beliefs That Will Affect Care: None marital status: Current Living Situation: Alone current occupational status: retired Feels Safe at Home: Yes Assistive Devices: Walker Results & Data Results & Data ([facility]) Vital Signs (Past 12 Hours) Vital Signs Temp Pulse Pulse Resp BP BP Pulse Ox 12/24/22 18:06 82 20 135/63 92 02/10/22 18:06 02/10/22 16:42 67 18 97 02/10/22 15:44 37.6 C H 83 20 160/73 H 94 O2 Del Method O2 Flow Rate 02/10/22 18:06 Nasal Cannula 3 02/10/22 18:06 Nasal Cannula 4 02/10/22 16:42 Nasal Cannula 4 02/10/22 15:44 Nasal Cannula 4 Laboratory Results Abnormal lab results 02/10/22 02/10/22 Range/Units 16:21 16:21 WBC 17.67 H (4.8-10.8) K/ul Neut # (Auto) 15.94 H (1.4-6.5) K/uL Lymph # (Auto) 0.62 L (1.2-3.4) K/uL Coffee # (Auto) 0.89 H (0.24-0.82) K/uL Immature Gran # (Auto) 0.15 H (0.00-0.02) K/uL Anion Gap 12 H (3-11) Glucose 128 H (70-99(Fasting)) mg/dl Total Bilirubin 1.8 H (0.2-1.0) mg/dl AST 12 L (13-39) U/L Diagnostic Findings Chest X-Ray 02/10/22 15:47 XR chest 1V portable CLINICAL HISTORY: SOB TECHNIQUE: Single frontal radiograph of the chest was obtained. Comparison: Comparison is made to chest radiograph 09/26/2020 and CTA chest 04/07/2019 FINDINGS: Dual lead pacemaker is seen. Cardiomegaly is noted. The aortic arch is calcified. Reticular interstitial opacities are seen. No evidence of pleural effusion or pneumothorax. IMPRESSION: Cardiac megaly is noted. No airspace opacity is seen to suggest. ACT 112: Negative or not required by law. Electronically signed by: Jeffery Campbell M.D. 02/10/2022 6:10 PM PG Care Time/CCT Total # of Minutes Spent Total Time Spent with Patient: Total time spent is greater than 50% in coordination of care (as documented) at patient's floor/unit and/or counseling patient: Coding
--- NOTE | 2022-02-10 19:27 | History & Physical Report ---
Date of Service February 10, 2022 Assessment & Plan (1) Acute respiratory failure with hypoxia: (2) COPD exacerbation: Plan: Admit to [facility] Patient presenting from home with reports of worsening cough and shortness of breath x 1 week. Per EMS report, patient was hypoxic upon their arrival. Patient initially was placed on 4 L of oxygen however has been weaned down to 2 L in the ED and is maintaining saturations > 90% WBC 17 K -noted patient recently on prednisone taper by PCP for a rash. Low- grade fever. Negative procalcitonin. CXR without clear infiltrate. Flu/COVID/RSV testing negative. Will check bio fire panel. S/p ceftriaxone and azithromycin in the ED, continue with No significant wheezing on exam, will start prednisone 40 mg daily x 4 days Pulmonary toilet with nebs, Mucinex, incentive spirometer, flutter valve (3) Atrial fibrillation: (4) Tachy-juli syndrome: (5) Pacemaker: Plan: Rate controlled on metoprolol Previously was not anticoagulated due to history of spontaneous retroperitoneal bleed while on Xarelto therapy. PCP recently started Eliquis 12/2021. (6) Hypertension: Plan: BP controlled, continue metoprolol and furosemide (7) Hypothyroidism associated with surgical procedure: Plan: History of thyroidectomy 2/2 Graves' disease Continue levothyroxine (8) DVT prophylaxis: Plan: On Eliquis History of Present Illness Chief Complaint: Cough, shortness of breath Primary Care Provider: Charles Connolly 81-year-old female with PMH Graves' disease s/p thyroidectomy, atrial fibrillation on Eliquis, tachybradycardia syndrome s/p pacemaker, HTN, history of spontaneous retroperitoneal bleed, and other problems listed below who presents to the ED for evaluation of cough and shortness of breath. Patient reports she has been having symptoms for the past 1 week. Describes cough as productive for yellow and ashraf sputum. Patient reports shortness of breath with minimal exertion which is new for her. No chest pain or palpitations. Denies fevers and chills. Reports a poor appetite however no nausea, vomiting, abdominal pain, diarrhea. No lightheadedness, dizziness, diaphoresis, syncopal events. Patient denies urinary symptoms. When EMS was called today, patient was found to be hypoxic on room air. She was subsequently placed on 4 L of oxygen however in the ED was able to be weaned to 2 L and is maintaining saturation in the low 90s. Labs show WBC 17 K. Of note, patient reports she is on the last day of a prednisone taper from her PCP for a rash. Patient was given nebulizer treatment, IV azithromycin, IV ceftriaxone. Allergies Allergy/AdvReac Type Severity Reaction Status Date / Time No Known Allergies Allergy Verified 02/10/22 17:25 Home Medications Medication Instructions Recorded Confirmed Type acetaminophen 500 mg tablet 500 mg PO Q4H PRN Pain 12/03/18 02/10/22 History metoprolol succinate 50 mg 50 mg PO QAM 12/03/18 02/10/22 History tablet,extended release 24 hr famotidine 20 mg tablet 20 mg PO BID 12/16/18 02/10/22 History cholecalciferol (vitamin D3) 50 50 mcg PO DAILY 11/11/19 02/10/22 History mcg (2,000 unit) tablet (Vitamin D3) ursodiol 300 mg capsule 300 mg PO BID 11/11/19 02/10/22 History ascorbic acid (vitamin C) 500 mg 500 mg PO DAILY 09/26/20 02/10/22 History tablet (Vitamin C) levothyroxine 125 mcg capsule 125 mcg PO DAILY #30 caps 09/29/20 02/10/22 Rx gabapentin 100 mg capsule 100 mg PO BID Pain 02/13/21 02/10/22 History potassium chloride 10 mEq 10 meq PO QAM 02/13/21 02/10/22 History capsule,extended release ropinirole 1 mg tablet 1 mg PO QPM RESTLESS LEGS 02/13/21 02/10/22 History apixaban 2.5 mg tablet (Eliquis) 2.5 mg PO BID #180 tabs 12/25/21 02/10/22 Rx fluticasone fur. 100 mcg-umeclid 1 inh inhalation DAILY 01/18/22 02/10/22 History 62.5 mcg-vilant 25 mcg inhalat.powder (Trelegy Ellipta) albuterol sulfate 90 mcg/actuation 2 puff inhalation QID PRN 02/10/22 02/10/22 History aerosol inhaler Shortness Of Breath Or Wheezing furosemide 40 mg tablet 40 mg PO DAILY 02/10/22 02/10/22 History prednisone 10 mg tablet 10 mg PO .TAPER UD 02/10/22 02/10/22 History Past Med/Surg History Medical History (Updated 02/11/22 @ 00:25 by Milly Guillermo, ) Ascending cholangitis Atrial fibrillation Bacteremia Choledocholithiasis with obstruction CKD (chronic kidney disease) stage 3, GFR 30-59 ml/min COPD (chronic obstructive pulmonary disease) GERD (gastroesophageal reflux disease) Hypertension Hypothyroidism associated with surgical procedure Obstructive sleep apnea Pacemaker Pancreatitis Pulmonary emphysema Restless leg syndrome Retroperitoneal bleed Solitary lung nodule Tachy-juli syndrome Surgical History History of ERCP 12/30/18 Grade 1 view Mac 3 blade S/P cholecystectomy S/P thyroidectomy Family History Other Cancer Social History Smoking Status: Former smoker Tobacco Type: Cigarettes Cigarettes Per Day: 20; Second Hand Exposure: Yes; Do You Dip or Chew Tobacco: No; Tobacco Cessation Education Requested by Patient: No Hx Alcohol Use: No Hx Substance Use: No Preferred Language: Ukrainian Communication Ability: Effective Practice Specialist Required: No Beliefs That Will Affect Care: None marital status: Current Living Situation: Other Current Living Situation Comment: senior [employer] building current occupational status: retired Other Information That Helps Us Care for You: No Feels Safe at Home: Yes Safety Concerns: Feels Safe At This Time Assistive Devices: Denture - Upper and Walker Review of Systems Review of Systems: ROS per HPI, all other systems reviewed and negative Physical Exam Constitutional: WD/WN, vitals as above + ill appearing; no acute distress Eyes: PERRL, conjunctivae normal, anicteric sclerae ENMT: external ear and nose normal, oropharynx normal Respiratory: normal respiratory effort; no respiratory distress Auscultation: + diminished lung sounds and + rhonchi (Faint, scattered); no wheezes Cardiovascular: Rate/Rhythm: regular rhythm and + irregularly irregular Vessels: normal peripheral pulses Extremities: no edema Gastrointestinal (Abdomen): normal bowel sounds, soft, nontender, no hepatosplenomegaly Musculoskeletal: no cyanosis or clubbing, extremities motor strength 5/5 Skin: no rashes, warm and dry Neurologic: PERRL, EOMI, accommodation nl, no face palsy, no dysarthria Psychiatric: A+Ox3, euthymic affect Results & Data Results & [facility] ([facility]) Vital Signs (Past 12 Hours) Vital Signs Temp Pulse Pulse Resp BP BP Pulse Ox 02/10/22 19:09 93 02/10/22 19:00 75 28 H 93 02/10/22 18:06 82 20 135/63 92 02/10/22 18:06 02/10/22 16:42 67 18 97 02/10/22 15:44 37.6 C H 83 20 160/73 H 94 O2 Del Method O2 Flow Rate 02/10/22 19:09 3 02/10/22 19:00 Nasal Cannula 3 02/10/22 18:06 Nasal Cannula 3 02/10/22 18:06 Nasal Cannula 4 02/10/22 16:42 Nasal Cannula 4 02/10/22 15:44 Nasal Cannula 4 Laboratory Results Short CBC 02/10/22 Range/Units 16:21 WBC 17.67 H (4.8-10.8) K/ul Hgb 13.5 (12.0-16.0) g/dl Hct 40.0 (34.1-44.9) % Plt Count 309 (130-400) K/uL BMP 02/10/22 16:21 Sodium 139 Potassium 3.7 Chloride 100 Carbon Dioxide 27 BUN 15 Creatinine 0.83 Glucose 128 H Calcium 8.9 Liver Function 02/10/22 Range/Units 16:21 Total Bilirubin 1.8 H (0.2-1.0) mg/dl AST 12 L (13-39) U/L ALT 7 (7-52) U/L Alkaline Phosphatase 88 (34-104) U/L Albumin 3.6 (3.4-5.0) gm/dl Diagnostic Findings Chest X-Ray 02/10/22 15:47 XR chest 1V portable CLINICAL HISTORY: SOB TECHNIQUE: Single frontal radiograph of the chest was obtained. Comparison: Comparison is made to chest radiograph 09/26/2020 and CTA chest 04/07/2019 FINDINGS: Dual lead pacemaker is seen. Cardiomegaly is noted. The aortic arch is calcified. Reticular interstitial opacities are seen. No evidence of pleural effusion or pneumothorax. IMPRESSION: Cardiac megaly is noted. No airspace opacity is seen to suggest. ACT 112: Negative or not required by law. Electronically signed by: Jeffery Campbell M.D. 02/10/2022 6:10 PM Code Status & VTE Plan Code Status Patient is a DNR as per my discussion with VTE Prophylaxis Plan VTE Prophylaxis will be ordered: No Supervising Physician Co-Signing Physician Notes Care coordinated with GUICHO De La Cruz. Agree with aovle note. Patient seen and examined. Please refer to her notes for full details. Vital signs reviewed. Physical exam: General exam: Alert and oriented. Not in acute distress. CVS: S1 and S2 heard, regular rate and rhythm, no murmurs. RS: Clear to auscultation, b/l diminished breath sounds ABD: Soft, bowel sounds present, nontender, no distention. 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 EXT: No edema, no erythema. Labs: Reviewed. Assessment and plan: 81F with hx of copd presents one week of cough bringing u=yellow/brown sputum and sob. Low grade fevers. Denies any chest pain. No nausea. Normal bowel movements. CUrrently saturating ok on nasal canula and seems comfortable. copd ex started on steroids, nebs and abx will monitor the reponse Hx of HTN Home meds will monitor. Other diagnosis and plan of care as per GUICHO De La Cruz.. Paul hannah MD. (1) Atrial fibrillation Atrial fibrillation type: unspecified chronic Qualified Code(s): I48.20 - Chronic atrial fibrillation, unspecified (2) Hypertension Hypertension type: essential hypertension Qualified Code(s): I10 - Essential (primary) hypertension
[2022-02-10 20:22] LABS: Adenovirus PCR Not Detected (NotDetected); Bordetella parapertussis PCR Not Detected (NotDetected); Bordetella pertussis PCR Not Detected (NotDetected); Chlamydia pneumoniae PCR Not Detected (NotDetected); Coronavirus 229E PCR Not Detected (NotDetected); Coronavirus CoV-2 (COVID19)PCR Not Detected (NotDetected); Coronavirus HKU1 PCR Not Detected (NotDetected); Coronavirus NL63 PCR Not Detected (NotDetected); Coronavirus OC43PCR Not Detected (NotDetected); Human Metapneumovirus PCR Not Detected (NotDetected); Influenza A PCR Not Detected (NotDetected); Influenza B PCR Not Detected (NotDetected); Mycoplasma pneumoniae PCR Not Detected (NotDetected); Parainfluenza Virus 1 PCR Not Detected (NotDetected); Parainfluenza Virus 2 PCR Not Detected (NotDetected); Parainfluenza Virus 3 PCR Not Detected (NotDetected); Parainfluenza Virus 4 PCR Not Detected (NotDetected); Respiratory Syncytial VirusPCR Not Detected (NotDetected); Rhinovirus/Enterovirus PCR Not Detected (NotDetected)
[2022-02-10] MEDS ORDERED: ONDANSETRON INJ 2 MG/ML 2 ML VIAL IV PRN (21:27)
[2022-02-10] MEDS ORDERED: ACETAMINOPHEN 325 MG TAB PO PRN (21:27)
[2022-02-10] MEDS ORDERED: cefTRIAXone SODIUM 1,000 MG in DEXTROSE 5% AD-VAN 50 ML IV SCH (21:27)
[2022-02-10] MEDS: ALBUT/IPRATROP 3MG/0.5MG NEB 3 ML VIAL NEB SCH (21:58)
[2022-02-10] MEDS: predniSONE 20 MG TAB PO SCH (22:18)
[2022-02-10] MEDS: rOPINIRole HCL 1 MG TABLET PO SCH (22:18)
[2022-02-10] MEDS: guaiFENesin 600 MG TABCR PO SCH (22:20)
[2022-02-10] MEDS: FAMOTIDINE 20 MG TAB PO SCH (22:21)
[2022-02-10] MEDS: APIXABAN 2.5 MG TAB PO SCH (22:21)
[2022-02-10] MEDS: GABAPENTIN 100 MG CAP PO SCH (22:21)
[2022-02-10] MEDS: ursodioL 300 MG CAP PO SCH (23:05)
[2022-02-11] MEDS: ALBUT/IPRATROP 3MG/0.5MG NEB 3 ML VIAL NEB SCH ×6 (03:02→23:04)
[2022-02-11] MEDS: LEVOTHYROXINE SODIUM 125 MCG TABLET PO SCH (06:13)
[2022-02-11 07:06] LABS: Hematocrit (blood only) 38.5 % (34.1-44.9); Hemoglobin 12.9 g/dl (12.0-16.0); Mean Corpuscular Hgb Conc 33.5 g/dL (32.0-36.0); Mean Corpuscular Volume 95.5 fL (80.0-100.0); Mean Platelet Volume 9.3 fL (9.4-12.3); Platelet Count 287 K/uL (130-400); RDW Coefficient of Variation 12.8 % (11.5-14.5); RDW Standard Deviation 45.1 fL (36.4-46.3); Red Blood Count 4.03 M/uL (3.93-5.22)
[2022-02-11 07:45] LABS: Anion Gap 8 (3-11); Blood Urea Nitrogen 17 mg/dl (6-23); Calcium 8.4 mg/dl (8.5-10.1); Carbon Dioxide 28 mmol/L (21-32); Chloride 102 mmol/L (98-107); Creatinine Clr Calc Pharmacy 58.4 ml/min; Est GFR (African American) 77.8 ml/min; Est GFR (Non-African American) 67.2 ml/min; Glucose 165 mg/dl (70-99(Fasting)); Sodium 138 mmol/L (136-145)
--- NOTE | 2022-02-11 10:36 | Electrocardiogram Report ---
Test Reason : Blood Pressure : / mmHG Vent. Rate : 070 BPM Atrial Rate : 234 BPM P-R Int : 000 ms QRS Dur : 102 ms QT Int : 396 ms P-R-T Axes : 000 -59 086 degrees QTc Int : 427 ms Poor data quality, interpretation may be adversely affected Atrial fibrillation with occasional ventricular-paced complexes and with PVC's Left anterior fascicular block LVH with secondary ST/T changes Abnormal ECG When compared with ECG of 26-SEP-2020 19:39, No significant change was found Confirmed by Casimiro Garay ([id number]) on 02/11/2022 10:36:39 AM Referred By: REFERRED SELF Confirmed By:Casimiro Garay
--- NOTE | 2022-02-11 10:38 | Electrocardiogram Report ---
Test Reason : Blood Pressure : / mmHG Vent. Rate : 071 BPM Atrial Rate : 061 BPM P-R Int : 000 ms QRS Dur : 134 ms QT Int : 428 ms P-R-T Axes : 000 -70 087 degrees QTc Int : 465 ms Poor data quality, interpretation may be adversely affected Atrial fibrillation Ventricular-paced rhythm both [place] beats and fusion beats Abnormal ECG When compared with ECG of 10-FEB-2022 16:09, (unconfirmed) Fusion beats are present PVC's are no longer present Confirmed by Casimiro Garay ([id number]) on 02/11/2022 10:38:35 AM Referred By: REFERRED SELF Confirmed By:Casimiro Garay
[2022-02-11] MEDS: GABAPENTIN 100 MG CAP PO SCH ×2 (10:57→20:28)
[2022-02-11] MEDS: predniSONE 20 MG TAB PO SCH (10:57)
[2022-02-11] MEDS: guaiFENesin 600 MG TABCR PO SCH ×2 (10:57→20:29)
[2022-02-11] MEDS: FUROSEMIDE 40 MG TAB PO SCH (10:57)
[2022-02-11] MEDS: FAMOTIDINE 20 MG TAB PO SCH ×2 (10:58→20:29)
[2022-02-11] MEDS: APIXABAN 2.5 MG TAB PO SCH ×2 (10:58→21:11)
[2022-02-11] MEDS: POTASSIUM CHLORIDE 10 MEQ TABCR PO SCH (10:58)
[2022-02-11] MEDS: METOPROLOL SUCC 50MG EXT REL TAB PO SCH (10:58)
[2022-02-11] MEDS: UMECLIDINIUM/VILANTEROL 62.5/25MCG 7 PUFFS/INHALER INH SCH (10:59)
[2022-02-11] MEDS: FLUTICASONE FUROATE 100MCG 14 PUFFS/INHALER INH SCH (10:59)
[2022-02-11] MEDS: ursodioL 300 MG CAP PO SCH ×2 (10:59→20:28)
--- NOTE | 2022-02-11 11:43 | Hospitalist Progress Note ---
Date of Service February 11, 2022 Assessment & Plan (1) Acute respiratory failure with hypoxia: (2) COPD exacerbation: Plan: Patient presented from home with reports of worsening cough and shortness of breath x 1 week. Per EMS report, patient was hypoxic upon their arrival. Patient initially was placed on 4 L of oxygen however has been weaned down to 2 L in the ED and is maintaining saturations > 90% WBC 17 K May due to recent prednisone taper by PCP for a rash. Negative procalcitonin. CXR without clear infiltrate. Flu/COVID/RSV testing negative. Continue ceftriaxone and doxycycline for now until blood culture results Continue prednisone 40 mg daily Mucinex, incentive spirometer, flutter valve Nebs prn (3) Atrial fibrillation: (4) Tachy-juli syndrome: (5) Pacemaker: Plan: Rate controlled on metoprolol Previously was not anticoagulated due to history of spontaneous retroperitoneal bleed while on Xarelto therapy. PCP recently started Eliquis 2.5mg bid 12/2021. (6) Hypertension: Plan: BP controlled Continue home meds (lasix and metoprolol) (7) Hypothyroidism associated with surgical procedure: Plan: History of thyroidectomy 2/2 Graves' disease Continue levothyroxine (8) DVT prophylaxis: Plan: On Eliquis Admission and Anticipated Discharge Date Admission Date: February 10, 2022 Subjective Patient seen and examined Reports cough and shortness of breath for the past week Denied any fevers, chills Denied nausea, vomiting, abd pain, diarrhea Denied dysuria, freq, urgency Physical Exam Constitutional: + well hydrated; no acute distress Eyes: PERRL, conjunctivae normal, anicteric sclerae ENMT: external ear and nose normal, oropharynx normal Respiratory: normal respiratory effort and + cough; no respiratory distress Auscultation: + diminished lung sounds Cardiovascular: Rate/Rhythm: + irregularly irregular S1 S2 Gastrointestinal (Abdomen): normal bowel sounds, soft, nontender, no hepatosplenomegaly Musculoskeletal: No pedal edema Neurologic: PERRL, EOMI, accommodation nl, no face palsy, no dysarthria Psychiatric: A+Ox3, euthymic affect Results & Data Results & Data ([facility]) Vital Signs (Past 12 Hours) Vital Signs Temp Pulse Resp BP Pulse Ox O2 Del Method O2 Flow Rate 02/11/22 11:38 83 18 94 Nasal Cannula 2 02/11/22 08:13 Nasal Cannula 3 02/11/22 08:10 36.5 C 72 16 108/63 98 Nasal Cannula 3 02/11/22 08:08 70 18 96 Nasal Cannula 3 02/11/22 03:02 74 18 96 Nasal Cannula 3 Laboratory Results Abnormal lab results 02/10/22 02/10/22 02/11/22 Range/Units 16:21 16:21 06:52 WBC 17.67 H 17.50 H (4.8-10.8) K/ul MPV 9.3 L (9.4-12.3) fL Neut # (Auto) 15.94 H (1.4-6.5) K/uL Lymph # (Auto) 0.62 L (1.2-3.4) K/uL [place] # (Auto) 0.89 H (0.24-0.82) K/uL Immature Gran # (Auto) 0.15 H (0.00-0.02) K/uL Anion Gap 12 H (3-11) BUN/Creatinine Ratio (10-20) Glucose 128 H (70-99(Fasting)) mg/dl Calcium (8.5-10.1) mg/dl Total Bilirubin 1.8 H (0.2-1.0) mg/dl AST 12 L (13-39) U/L B-Natriuretic Peptide (0-100) pg/ml 02/11/22 02/11/22 Range/Units 06:52 11:10 WBC (4.8-10.8) K/ul MPV (9.4-12.3) fL Neut # (Auto) (1.4-6.5) K/uL Lymph # (Auto) (1.2-3.4) K/uL [place] # (Auto) (0.24-0.82) K/uL Immature Gran # (Auto) (0.00-0.02) K/uL Anion Gap (3-11) BUN/Creatinine Ratio 21.0 H (10-20) Glucose 165 H (70-99(Fasting)) mg/dl Calcium 8.4 L (8.5-10.1) mg/dl Total Bilirubin (0.2-1.0) mg/dl AST (13-39) U/L B-Natriuretic Peptide 463 H (0-100) pg/ml (1) Atrial fibrillation Atrial fibrillation type: unspecified chronic Qualified Code(s): I48.20 - Chronic atrial fibrillation, unspecified (2) Hypertension Hypertension type: essential hypertension Qualified Code(s): I10 - Essential (primary) hypertension
[2022-02-11] MEDS ORDERED: BENZONATATE 100 MG CAPSULE PO PRN (12:36)
[2022-02-11] MEDS: AZITHROMYCIN 500 MG in DEXTROSE 5% 250 ML IV SCH (17:53)
[2022-02-11] MEDS ORDERED: cefTRIAXone SODIUM 2,000 MG in DEXTROSE 5% 50 ML IV SCH (19:00)
[2022-02-11] MEDS: rOPINIRole HCL 1 MG TABLET PO SCH (20:29)
[2022-02-12] MEDS: ALBUT/IPRATROP 3MG/0.5MG NEB 3 ML VIAL NEB SCH ×6 (02:53→23:35)
[2022-02-12] MEDS: LEVOTHYROXINE SODIUM 125 MCG TABLET PO SCH (06:07)
[2022-02-12 07:55] LABS: Hematocrit (blood only) 36.4 % (34.1-44.9); Hemoglobin 12.4 g/dl (12.0-16.0); Mean Corpuscular Hemoglobin 32.1 pg (25.0-34.0); Mean Corpuscular Hgb Conc 34.1 g/dL (32.0-36.0); Mean Corpuscular Volume 94.3 fL (80.0-100.0); Mean Platelet Volume 9.7 fL (9.4-12.3); Platelet Count 297 K/uL (130-400); RDW Coefficient of Variation 12.7 % (11.5-14.5); RDW Standard Deviation 43.8 fL (36.4-46.3); Red Blood Count 3.86 M/uL (3.93-5.22); White Blood Count 17.73 K/ul (4.8-10.8)
[2022-02-12 08:15] LABS: Calcium 8.5 mg/dl (8.5-10.1); Creatinine Clr Calc Pharmacy 43.8 ml/min; Est GFR (Non-African American) 47.4 ml/min; Potassium 3.1 mmol/L (3.5-5.1)
[2022-02-12] MEDS ORDERED: POTASSIUM CHLORIDE CRTAB 20 MEQ TABCR PO STA (08:53)
[2022-02-12] MEDS: FLUTICASONE FUROATE 100MCG 14 PUFFS/INHALER INH SCH (10:18)
[2022-02-12] MEDS: GABAPENTIN 100 MG CAP PO SCH ×2 (10:21→20:00)
[2022-02-12] MEDS: FUROSEMIDE 40 MG TAB PO SCH (10:21)
[2022-02-12] MEDS: FAMOTIDINE 20 MG TAB PO SCH ×2 (10:21→20:02)
[2022-02-12] MEDS: guaiFENesin 600 MG TABCR PO SCH ×2 (10:21→20:01)
[2022-02-12] MEDS: APIXABAN 2.5 MG TAB PO SCH ×2 (10:21→20:01)
[2022-02-12] MEDS: ursodioL 300 MG CAP PO SCH ×2 (10:21→20:02)
[2022-02-12] MEDS: POTASSIUM CHLORIDE 10 MEQ TABCR PO SCH (10:21)
[2022-02-12] MEDS: UMECLIDINIUM/VILANTEROL 62.5/25MCG 7 PUFFS/INHALER INH SCH (10:22)
[2022-02-12] MEDS: predniSONE 20 MG TAB PO SCH (10:22)
[2022-02-12] MEDS: METOPROLOL SUCC 50MG EXT REL TAB PO SCH (10:23)
--- NOTE | 2022-02-12 12:12 | Hospitalist Progress Note ---
Date of Service February 12, 2022 Assessment & Plan (1) Acute respiratory failure with hypoxia: (2) COPD exacerbation: Plan: Patient presented from home with reports of worsening cough and shortness of breath x 1 week. Per EMS report, patient was hypoxic upon their arrival. Patient initially was placed on 4 L of oxygen however has been weaned down to 2 L in the ED and is maintaining saturations > 90% WBC 17 K May due to recent prednisone taper by PCP for a rash. Negative procalcitonin. CXR without clear infiltrate. Flu/COVID/RSV testing negative. Continue doxycycline. Stop ceftriaxone Continue prednisone 40 mg daily Mucinex, incentive spirometer, flutter valve Nebs prn Weaned off oxygen Will check amb pulse ox prior to dc (3) Atrial fibrillation: (4) Tachy-juli syndrome: (5) Pacemaker: Plan: Rate controlled on metoprolol Previously was not anticoagulated due to history of spontaneous retroperitoneal bleed while on Xarelto therapy. PCP recently started Eliquis 2.5mg bid 12/2021. (6) Hypertension: Plan: BP controlled Continue home meds (lasix and metoprolol) Hypokalemia today. Replete and monitor (7) Hypothyroidism associated with surgical procedure: Plan: History of thyroidectomy 2/2 Graves' disease Continue levothyroxine (8) DVT prophylaxis: Plan: On Eliquis Admission and Anticipated Discharge Date Admission Date: February 10, 2022 Subjective Patient seen and examined Reports feeling better today Now off oxygen Still reports cough Reported shortness of breath today while taking a walk Reports weakness is improving Denied any fevers, chills Denied nausea, vomiting, abd pain, diarrhea Denied dysuria, freq, urgency Physical Exam Constitutional: + well hydrated; no acute distress Eyes: PERRL, conjunctivae normal, anicteric sclerae ENMT: external ear and nose normal, oropharynx normal Respiratory: normal respiratory effort and + cough; no respiratory distress Auscultation: + diminished lung sounds Cardiovascular: Rate/Rhythm: + irregularly irregular S1 S2 Gastrointestinal (Abdomen): normal bowel sounds, soft, nontender, no hepatosplenomegaly Musculoskeletal: No pedal edema Neurologic: PERRL, EOMI, accommodation nl, no face palsy, no dysarthria Psychiatric: A+Ox3, euthymic affect Results & Data Results & Data ([facility]) Vital Signs (Past 12 Hours) Vital Signs Temp Pulse Pulse Pulse Resp BP Pulse Ox 02/12/22 11:34 02/12/22 11:21 84 16 93 02/12/22 07:25 36.7 C 77 18 105/62 93 02/12/22 06:47 77 16 93 02/12/22 02:55 115 H 18 94 O2 Del Method 02/12/22 11:34 Room Air 02/12/22 11:21 Room Air 02/12/22 07:25 Room Air 02/12/22 06:47 Room Air 02/12/22 02:55 Room Air Laboratory Results Abnormal lab results 02/12/22 02/12/22 Range/Units 07:34 07:34 WBC 17.73 H (4.8-10.8) K/ul RBC 3.86 L (3.93-5.22) M/uL Potassium 3.1 L (3.5-5.1) mmol/L BUN 27 H (6-23) mg/dl BUN/Creatinine Ratio 25.0 H (10-20) Glucose 120 H (70-99(Fasting)) mg/dl (1) Atrial fibrillation Atrial fibrillation type: unspecified chronic Qualified Code(s): I48.20 - Chronic atrial fibrillation, unspecified (2) Hypertension Hypertension type: essential hypertension Qualified Code(s): I10 - Essential (primary) hypertension
[2022-02-12] MEDS: AZITHROMYCIN 500 MG in DEXTROSE 5% 250 ML IV SCH (19:10)
[2022-02-12] MEDS: rOPINIRole HCL 1 MG TABLET PO SCH (20:01)
[2022-02-13] MEDS: ALBUT/IPRATROP 3MG/0.5MG NEB 3 ML VIAL NEB SCH ×4 (03:09→15:43)
[2022-02-13] MEDS: LEVOTHYROXINE SODIUM 125 MCG TABLET PO SCH (06:04)
[2022-02-13 07:52] LABS: Hematocrit (blood only) 35.8 % (34.1-44.9); Hemoglobin 12.1 g/dl (12.0-16.0); Mean Corpuscular Hemoglobin 31.6 pg (25.0-34.0); Mean Corpuscular Hgb Conc 33.8 g/dL (32.0-36.0); Mean Corpuscular Volume 93.5 fL (80.0-100.0); Mean Platelet Volume 9.5 fL (9.4-12.3); Platelet Count 304 K/uL (130-400); RDW Coefficient of Variation 12.8 % (11.5-14.5); RDW Standard Deviation 43.8 fL (36.4-46.3); Red Blood Count 3.83 M/uL (3.93-5.22); White Blood Count 12.86 K/ul (4.8-10.8)
[2022-02-13 08:16] LABS: BUN Creatinine Ratio 28.7 (10-20); Calcium 8.6 mg/dl (8.5-10.1); Creatinine Clr Calc Pharmacy 50.3 ml/min; Est GFR (Non-African American) 56.1 ml/min; Potassium 3.6 mmol/L (3.5-5.1)
[2022-02-13] MEDS: predniSONE 20 MG TAB PO SCH (08:41)
[2022-02-13] MEDS: guaiFENesin 600 MG TABCR PO SCH (08:41)
[2022-02-13] MEDS: UMECLIDINIUM/VILANTEROL 62.5/25MCG 7 PUFFS/INHALER INH SCH (08:41)
[2022-02-13] MEDS: POTASSIUM CHLORIDE 10 MEQ TABCR PO SCH (08:41)
[2022-02-13] MEDS: FAMOTIDINE 20 MG TAB PO SCH (08:41)
[2022-02-13] MEDS: METOPROLOL SUCC 50MG EXT REL TAB PO SCH (08:41)
[2022-02-13] MEDS: ursodioL 300 MG CAP PO SCH (08:41)
[2022-02-13] MEDS: FLUTICASONE FUROATE 100MCG 14 PUFFS/INHALER INH SCH (08:41)
[2022-02-13] MEDS: FUROSEMIDE 40 MG TAB PO SCH (08:41)
[2022-02-13] MEDS: APIXABAN 2.5 MG TAB PO SCH (08:41)
[2022-02-13] MEDS: GABAPENTIN 100 MG CAP PO SCH (08:41)
--- NOTE | 2022-02-13 14:41 | Discharge Summary ---
Discharge Summary Date of Service February 13, 2022 Notes For Next Care Provider Follow up recovery Continue management of chronic medical problems Medication Changes From Visit Discharged on one more day of prednisone 40mg tomorrow and stop Discharged on mucinex and tessalon perles for symptom management Admission HPI Per Admitting Provider 81-year-old female with PMH Graves' disease s/p thyroidectomy, atrial fibrillation on Eliquis, tachybradycardia syndrome s/p pacemaker, HTN, history of spontaneous retroperitoneal bleed, and other problems listed below who presents to the ED for evaluation of cough and shortness of breath. Patient reports she has been having symptoms for the past 1 week. Describes cough as productive for yellow and ashraf sputum. Patient reports shortness of breath with minimal exertion which is new for her. No chest pain or palpitations. Denies fevers and chills. Reports a poor appetite however no nausea, vomiting, abd ominal pain, diarrhea. No lightheadedness, dizziness, diaphoresis, syncopal events. Patient denies urinary symptoms. When EMS was called today, patient was found to be hypoxic on room air. She was subsequently placed on 4 L of oxygen however in the ED was able to be weaned to 2 L and is maintaining saturation in the low 90s. Labs show WBC 17 K. Of note, patient reports she is on the last day of a prednisone taper from her PCP for a rash. Patient was given nebulizer treatment, IV azithromycin, IV ceftriaxone. Admission Exam Per Admitting Provider Constitutional: WD/WN, vitals as above + ill appearing; no acute distress Eyes: PERRL, conjunctivae normal, anicteric sclerae ENMT: external ear and nose normal, oropharynx normal Respiratory: normal respiratory effort; no respiratory distress Auscultation: + diminished lung sounds and + rhonchi (Faint, scattered); no wheezes Cardiovascular: Rate/Rhythm: regular rhythm and + irregularly irregular Vessels: normal peripheral pulses Extremities: no edema Gastrointestinal (Abdomen): normal bowel sounds, soft, nontender, no hepatosplenomegaly Musculoskeletal: no cyanosis or clubbing, extremities motor strength 5/5 Skin: no rashes, warm and dry Neurologic: PERRL, EOMI, accommodation nl, no face palsy, no dysarthria Psychiatric: A+Ox3, euthymic affect Principal Dx & Hospital Course #1 = Principal Diagnosis (1) Acute respiratory failure with hypoxia: (2) COPD exacerbation: Patient presented from home with reports of worsening cough and shortness of krsitan ath x 1 week. Per EMS report, patient was hypoxic upon their arrival. Patient initially was placed on 4 L of oxygen however has been weaned down to 2 L in the ED and is maintaining saturations > 90% WBC 17 K May due to recent prednisone taper by PCP for a rash. Negative procalcitonin. CXR without clear infiltrate. Flu/COVID/RSV testing negative. Was treated with prednisone and nebs Received supportive therapy with Mucinex, incentive spirometer, flutter valve Was successfully weaned off oxygen 2 step today does not show need for oxygen Symptoms are improved Patient discharged on 1 more day of prednisone to complete treatment (3) Atrial fibrillation: (4) Tachy-juli syndrome: (5) Pacemaker: Rate controlled on metoprolol Previously was not anticoagulated due to history of spontaneous retroperitoneal bleed while on Xarelto therapy. PCP recently started Eliquis 2.5mg bid 12/2021. (6) Hypertension: BP controlled Continue home meds (lasix and metoprolol) (7) Hypothyroidism associated with surgical procedure: History of thyroidectomy 2/2 Graves' disease Continue levothyroxine Discharge Exam Constitutional + well hydrated; no acute distress Eyes PERRL, conjunctivae normal, anicteric sclerae ENMT external ear and nose normal, oropharynx normal Respiratory normal respiratory effort; no respiratory distress Auscultation: + diminished lung sounds Cardiovascular Rate/Rhythm: + irregularly irregular S1 S2 Gastrointestinal (Abdomen) normal bowel sounds, soft, nontender, no hepatosplenomegaly Musculoskeletal No pedal edema Neurologic PERRL, EOMI, accommodation nl, no face palsy, no dysarthria Psychiatric A+Ox3, euthymic affect Updated Medication List Medication Instructions Recorded Confirmed Type acetaminophen 500 mg tablet 500 mg PO Q4H PRN Pain 12/03/18 02/10/22 History metoprolol succinate 50 mg 50 mg PO QAM 12/03/18 02/10/22 History tablet,extended release 24 hr famotidine 20 mg tablet 20 mg PO BID 12/16/18 02/10/22 History cholecalciferol (vitamin D3) 50 50 mcg PO DAILY 11/11/19 02/10/22 History mcg (2,000 unit) tablet (Vitamin D3) ursodiol 300 mg capsule 300 mg PO BID 11/11/19 02/10/22 History ascorbic acid (vitamin C) 500 mg 500 mg PO DAILY 09/26/20 02/10/22 History tablet (Vitamin C) levothyroxine 125 mcg capsule 125 mcg PO DAILY #30 caps 09/29/20 02/10/22 Rx gabapentin 100 mg capsule 100 mg PO BID Pain 02/13/21 02/10/22 History potassium chloride 10 mEq 10 meq PO QAM 02/13/21 02/10/22 History capsule,extended release ropinirole 1 mg tablet 1 mg PO QPM RESTLESS LEGS 02/13/21 02/10/22 History apixaban 2.5 mg tablet (Eliquis) 2.5 mg PO BID #180 tabs 12/25/21 02/10/22 Rx fluticasone fur. 100 mcg-umeclid 1 inh inhalation DAILY 01/18/22 02/10/22 History 62.5 mcg-vilant 25 mcg inhalat.powder (Trelegy Ellipta) albuterol sulfate 90 mcg/actuation 2 puff inhalation QID PRN 02/10/22 02/10/22 History aerosol inhaler Shortness Of Breath Or Wheezing furosemide 40 mg tablet 40 mg PO DAILY 02/10/22 02/10/22 History benzonatate 100 mg capsule 100 mg PO TID PRN cough #20 caps 02/13/22 Rx guaifenesin 600 mg tablet, 1,200 mg PO Q12 #7 tabs 02/13/22 Rx extended release 12 hr (Mucinex) prednisone 20 mg tablet 40 mg PO DAILY 1 day #2 tabs 02/13/22 Rx Hospital Stay Data Consultations 02/10/22 18:46 ED Decision to Admit Stat Pending Results Patient Have Any Pending Studies at Discharge: No Discharge Instructions Given to Patient (Per Discharging Provider) Mrs Zhang. You came to the hospital for cough and shortness of breath. You were managed for COPD exacerbation You are being discharged home on one more day of prednisone. Please continue your inhalers and your home medications Please ensure follow up with your Primary Doctor It was a pleasure taking care of you. Total Time Total Time Spent Total Time Spent (In Minutes): 45 Total Time Includes: Examination of the Patient, Discharge Planning and Medication Reconciliation
== END 2022-02-13 16:25 | disposition home or self-care (01) | DRG 189 ==
LOC: ED 15:39 → 3W 19:16

== ENCOUNTER 2023-01-08 23:14 | Inpatient (IN) ==
[2023-01-08] MEDS ORDERED: ACETAMINOPHEN 500 MG TAB PO STA (23:20)
[2023-01-08] MEDS ORDERED: SODIUM CHLORIDE 0.9% 500 ML IV SCH (23:30)
--- NOTE | 2023-01-08 23:42 | Emergency Department Note ---
Impression & Plan Postoperative fever ED Provider Note NAME: PREETI JONES AGE: 82 SEX: Female INFORMANT: Patient ED PROVIDER(S): Fabian Bazan MD CHIEF COMPLAINT: Fever PLAN: Disposition: Admitted Outpatient prescription management: none Referral: None MEDICAL DECISION MAKING: Patient presented because of fever. She was postoperative from D&C. Workup was initiated. Patient was given Tylenol, saline hydration. Blood work, lactate, cultures, urinalysis, ultrasound and CT imaging performed. Patient has a fluid collection noted in the endometrium. No acute intra-abdominal findings were noted. Radiology question some atelectasis at the base of the lung however the patient has no new pulmonary symptoms. Her presentation is isolated to the lower abdomen. She has a leukocytosis. Lactate was a little elevated however it cleared. Patient was hydrated but very gently and she was not aggressively managed with a 30/kg fluid bolus due to her significant cardiac history and concerns about complications of volume overload. Patient had stabilization of vital signs, normalization of lactate and clinically looked well. Severe sepsis or septic shock is not present at this time. Patient was empirically given a dose of IV Unasyn. I did consult with Dr. Rose of [facility]. She did evaluate the patient in the ER. She did ask for medicine to admit the patient for a more comprehensive evaluation and they would consult. She will manage in a biotics and I did consult with Dr. Basil Diaz, [facility] hospitalist service. Patient was admitted for further management. Care/management discussed with: special projects manager Level of care consideration(s): After review of the information above and other included data, I feel the patient requires escalation of care to admission Triage Nursing notes: reviewed and agree them. Vital Signs: reviewed and remarkable for fever Additional History obtained from: none Chronic Medical/Social Conditions affecting care: COPD Prior/ Outside/ External records reviewed: Surgical note from 12/28 reviewed. Patient had D&C for thickened endometrium. No complications reported Differential Diagnosis: Endometritis, UTI, postoperative fever, intra-abdominal process, viral syndrome, pneumonia, influenza, sepsis, bacteremia, as well as other pathologies. Diagnostics, independently interpreted by me: ECG: Twelve-lead ECG rhythm ventricular paced rhythm at [address] elevation or depression. Cardiac Monitoring: Cardiac monitoring ordered by me: The patient was placed on continuous cardiac monitoring and observed. It revealed a paced rhythm at 71 bpm without dysrhythmia. Medical decision rules: none Imaging studies: CT imaging and ultrasound imaging of the abdomen pelvis reveal fluid collection noted within the endometrium. Cannot rule out endometritis. No intra-abdominal bowel pathology noted. HPI: 82 year old Female arrives for evaluation of fever. Patient underwent D&C on December [address] Martinez. Patient states she was doing relatively well. She has some lower abdominal discomfort and developed fever tonight. She notes a Tmax of 101. Patient has some mild shortness of breath but states she has COPD and this feels baseline for her. She has some lower extremity swelling which is baseline as well. Patient did not take anything. EMS summoned and she was brought to the ER for further evaluation. Pt denies LOC, headache, diaphoresis, visual changes, neck pain, chest pain, new breathing difficulties, nausea, vomiting, back pain, melena, hematochezia, urinary symptoms, weakness, lymphadenopathy, rash, or other complaints. PAST MEDICAL HISTORY: See Below, COPD, A-fib PAST SURGICAL HISTORY: See Below, cholecystectomy SOCIAL HISTORY: See Below, retired HOME MEDICATIONS: See Below ALLERGIES: See Below VITALS: See Below PHYSICAL EXAMINATION: GENERAL: Awake, alert, uncomfortable-appearing, in no distress HENT: Normocephalic, atraumatic. Oropharynx unremarkable. EYES: Normal conjunctiva. Sclera non-icteric. NECK: Inspection normal. Non-tender. Supple. No nuchal rigidity. FROM. No masses. RESPIRATORY: Clear to auscultation. No wheezes. No rales. Normal respiratory effort. CARDIAC: Normal rate. Normal rhythm. No murmurs. No rubs. Extremities warm and well perfused. Pulses equal. No JVD. GI: Soft, non-distended. Suprapubic tenderness to palpation. No rebound or guarding. No masses. RECTAL: Deferred. MUSCULOSKELETAL: Atraumatic. Chest examination reveals no tenderness. The back is symmetrical on inspection without obvious abnormality. There is no CVA tenderness to palpation. No joint edema. LOWER EXTREMITIES: Calves are equal size bilaterally and non-tender. No edema. No discoloration. NEURO: Normal sensorium. No sensory or motor deficits noted. SKIN: No rash or jaundice noted. PROCEDURES: none CRITICAL CARE: none OBSERVATION NOTE: none Past Med/Surg History Medical History History of blood transfusion Macular degeneration Tachy-juli syndrome Solitary lung nodule Pulmonary emphysema CKD (chronic kidney disease) stage 3, GFR 30-59 ml/min Obstructive sleep apnea COPD (chronic obstructive pulmonary disease) GERD (gastroesophageal reflux disease) Hypothyroidism associated with surgical procedure Atrial fibrillation Pacemaker Hypertension Restless leg syndrome Surgical History History of esophagogastroduodenoscopy (EGD) Hx of colonoscopy H/O dilation and curettage H/O eye surgery History of ERCP S/P thyroidectomy S/P cholecystectomy Family History Other Cancer Social History Smoking Status: Former smoker Tobacco Type: Cigarettes Second Hand Exposure: Yes (in the past); Do You Dip or Chew Tobacco: No; Hx Alcohol Use: No Hx Substance Use: No Preferred Language: Angolan Communication Ability: Effective Excel Specialist Required: No Beliefs That Will Affect Care: None marital status: Current Living Situation: Alone and Other Current Living Situation Comment: senior apartment building current occupational status: retired Feels Safe at Home: Yes Assistive Devices: Denture - Upper and Walker Allergies Allergies Allergy/AdvReac Type Severity Reaction Status Date / Time No Known Allergies Allergy Verified 01/09/23 00:02 Home Meds Home Medications Medication Instructions Recorded Confirmed acetaminophen 500 mg tablet 500 mg PO Q4H PRN Pain 12/03/18 01/09/23 metoprolol succinate 50 mg 50 mg PO QAM 12/03/18 01/09/23 tablet,extended release 24 hr cholecalciferol (vitamin D3) 50 50 mcg PO DAILY 11/11/19 01/09/23 mcg (2,000 unit) tablet (Vitamin D3) ursodiol 300 mg capsule 300 mg PO BID 11/11/19 01/09/23 ascorbic acid (vitamin C) 500 mg 500 mg PO DAILY 09/26/20 01/09/23 tablet (Vitamin C) gabapentin 100 mg capsule 100 mg PO HS Pain 02/13/21 01/09/23 potassium chloride 10 mEq 10 meq PO QAM 02/13/21 01/09/23 capsule,extended release ropinirole 1 mg tablet 1 mg PO QPM RESTLESS LEGS 02/13/21 01/09/23 fluticasone fur. 100 mcg-umeclid 1 inh inhalation DAILY 01/18/22 01/09/23 62.5 mcg-vilant 25 mcg inhalat.powder (Trelegy Ellipta) albuterol sulfate 90 mcg/actuation 2 puff inhalation QID PRN 02/10/22 01/09/23 aerosol inhaler Shortness Of Breath Or Wheezing furosemide 40 mg tablet 40 mg PO DAILY 02/10/22 01/09/23 pantoprazole 20 mg tablet,delayed 20 mg PO QAM 12/18/22 01/09/23 release calcium carbonate 200 mg calcium 200 mg PO BID 01/09/23 01/09/23 (500 mg) chewable tablet (Tums) vit C 250 mg-vit E 90 mg-zinc 40 1 tab PO BID 01/09/23 01/09/23 mg-copper 1 [id number] capsule (PreserVision AREDS-2) Previous Rx's Medication Instructions Recorded levothyroxine 125 mcg capsule 125 mcg PO DAILY #30 caps 09/29/20 apixaban 2.5 mg tablet (Eliquis) 2.5 mg PO BID #180 tabs 12/25/21 Results & Data (ED) Vital Signs Vital Signs - 24 hr 01/08/23 23:15 01/08/23 23:24 01/08/23 23:30 Temperature 37.8 C H Temperature Source Oral Pulse Rate 69 67 63 Pulse Rate from SpO2 Sensor 64 Respiratory Rate 20 22 Respiratory Effort / Characteristics Non-Labored Respiratory Depth Normal Respiratory Pattern Regular Blood Pressure 168/77 H 131/68 Blood Pressure Mean 107 89 Pulse Oximetry 92 93 Oxygen Delivery Method Room Air Room Air Sepsis Recent Fever Within 48 Hours Yes Sepsis New/Unexplained Change in Mental Status N/A Sepsis Action Taken by Nursing No Action Required 01/09/23 00:00 01/09/23 00:30 01/09/23 00:56 Temperature 37.2 C Temperature Source Oral Pulse Rate 68 68 Pulse Rate from SpO2 Sensor 75 67 Respiratory Rate 22 22 Respiratory Effort / Characteristics Respiratory Depth Respiratory Pattern Blood Pressure 159/86 H 150/74 H Blood Pressure Mean 110 99 Pulse Oximetry 92 92 Oxygen Delivery Method Room Air Room Air Sepsis Recent Fever Within 48 Hours Sepsis New/Unexplained Change in Mental Status Sepsis Action Taken by Nursing 01/09/23 01:24 01/09/23 01:30 01/09/23 02:00 Temperature Temperature Source Pulse Rate 68 71 72 Pulse Rate from SpO2 Sensor 68 71 69 Respiratory Rate 27 H 24 25 H Respiratory Effort / Characteristics Respiratory Depth Respiratory Pattern Blood Pressure 114/69 113/58 L 114/60 Blood Pressure Mean 84 76 78 Pulse Oximetry 93 91 93 Oxygen Delivery Method Room Air Room Air Room Air Sepsis Recent Fever Within 48 Hours Sepsis New/Unexplained Change in Mental Status Sepsis Action Taken by Nursing 01/09/23 02:30 01/09/23 03:00 01/09/23 03:30 Temperature Temperature Source Pulse Rate 67 69 67 Pulse Rate from SpO2 Sensor 65 67 68 Respiratory Rate 22 20 24 Respiratory Effort / Characteristics Respiratory Depth Respiratory Pattern Blood Pressure 107/58 L 100/52 L 124/65 Blood Pressure Mean 74 68 84 Pulse Oximetry 90 90 93 Oxygen Delivery Method Room Air Room Air Room Air Sepsis Recent Fever Within 48 Hours Sepsis New/Unexplained Change in Mental Status Sepsis Action Taken by Nursing 01/09/23 03:36 01/09/23 04:00 01/09/23 04:30 Temperature Temperature Source Pulse Rate 66 72 81 Pulse Rate from SpO2 Sensor 69 81 Respiratory Rate 20 22 Respiratory Effort / Characteristics Respiratory Depth Respiratory Pattern Blood Pressure 117/60 129/76 Blood Pressure Mean 79 93 Pulse Oximetry 91 90 Oxygen Delivery Method Room Air Room Air Sepsis Recent Fever Within 48 Hours Sepsis New/Unexplained Change in Mental Status Sepsis Action Taken by Nursing 01/09/23 05:00 Temperature Temperature Source Pulse Rate 63 Pulse Rate from SpO2 Sensor 61 Respiratory Rate 23 Respiratory Effort / Characteristics Respiratory Depth Respiratory Pattern Blood Pressure 110/64 Blood Pressure Mean 79 Pulse Oximetry 91 Oxygen Delivery Method Room Air Sepsis Recent Fever Within 48 Hours Sepsis New/Unexplained Change in Mental Status Sepsis Action Taken by Nursing Laboratory Data 01/09/23 00:03 01/09/23 00:03 Lab Results 01/09/23 01/09/23 01/09/23 Range/Units 00:03 00:05 02:26 WBC 15.75 H (4.8-10.8) K/ul RBC 4.25 (4.20-5.40) M/uL Hgb 13.5 (12.0-16.0) g/dl Hct 40.5 (37.0-47.0) % MCV 95.3 (80.0-100.0) fL MCH 31.8 (25.0-34.0) pg MCHC 33.3 (32.0-36.0) g/dL RDW Std Deviation 46.0 (36.4-46.3) fL RDW Coeff of Agusto 13.2 (11.5-14.5) % Plt Count 316 (130-400) K/uL MPV 9.7 (9.4-12.4) fL Immature Gran % (Auto) 0.4 % Neut % (Auto) 88.1 % Lymph % (Auto) 6.0 % Desha % (Auto) 4.3 % Eos % (Auto) 0.8 % Baso % (Auto) 0.4 % Neut # (Auto) 13.87 H (1.40-6.50) K/uL Lymph # (Auto) 0.94 L (1.20-3.40) K/uL Desha # (Auto) 0.68 H (0.11-0.59) K/uL Eos # (Auto) 0.12 (0.00-0.50) K/uL Baso # (Auto) 0.07 (0.00-0.20) K/uL Immature Gran # (Auto) 0.07 (0.01-0.20) K/uL Sodium 141 (136-145) mmol/L Potassium 3.5 (3.5-5.1) mmol/L Chloride 104 (98-107) mmol/L Carbon Dioxide 28 (21-32) mmol/L Anion Gap 9 (3-11) BUN 16 (6-23) mg/dl Creatinine 0.91 (0.6-1.2) mg/dl Est Cr Clr Drug Dosing 48.0 ml/min Est GFR ( Amer) 67.1 ml/min Est GFR (Non-Af Amer) 57.9 ml/min BUN/Creatinine Ratio 17.6 (10-20) Glucose 133 H (70-99(Fasting)) mg/dl Estimat Average Glucose 120 mg/dl Hemoglobin A1c 5.8 H (4.5-5.6) % Lactate 2.2 H* 1.4 (0.4-2.0) mmol/L Calcium 9.6 (8.6-10.3) mg/dl Magnesium 1.9 (1.7-2.4) mg/dl Total Bilirubin 0.8 (0.2-1.0) mg/dl Direct Bilirubin 0.2 (0-0.2) mg/dl AST 12 L (13-39) U/L ALT 8 (7-52) U/L Alkaline Phosphatase 122 H (34-104) U/L Total Protein 7.2 (6.0-8.3) gm/dl Albumin 3.8 (3.4-5.0) gm/dl Procalcitonin < 0.05 (0-0.5) ng/ml Adenovirus (PCR) Not Detected (NotDetected) B. pertussis DNA (PCR) Not Detected (NotDetected) B.parapertussis DNA PCR Not Detected (NotDetected) C. pneumoniae DNA (PCR) Not Detected (NotDetected) Coronavirus OC43 (PCR) Not Detected (NotDetected) Coronavirus HKU1 (PCR) Not Detected (NotDetected) Coronavirus 229E (PCR) Not Detected (NotDetected) SARS-CoV-2 (PCR) Not Detected (NotDetected) Coronavirus NL63 (PCR) Not Detected (NotDetected) Human Metapneumovir PCR Not Detected (NotDetected) Influenza Type A (PCR) Not Detected (NotDetected) Influenza Type B (PCR) Not Detected (NotDetected) M. pneumoniae (PCR) Not Detected (NotDetected) Parainfluenza 1 (PCR) Not Detected (NotDetected) Parainfluenza 2 (PCR) Not Detected (NotDetected) Parainfluenza 3 (PCR) Not Detected (NotDetected) Parainfluenza 4 (PCR) Not Detected (NotDetected) RSV (PCR) Not Detected (NotDetected) Entero/Rhino (PCR) Not Detected (NotDetected) 01/09/23 Range/Units 04:56 WBC (4.8-10.8) K/ul RBC (4.20-5.40) M/uL Hgb (12.0-16.0) g/dl Hct (37.0-47.0) % MCV (80.0-100.0) fL MCH (25.0-34.0) pg MCHC (32.0-36.0) g/dL RDW Std Deviation (36.4-46.3) fL RDW Coeff of Agusto (11.5-14.5) % Plt Count (130-400) K/uL MPV (9.4-12.4) fL Immature Gran % (Auto) % Neut % (Auto) % Lymph % (Auto) % Desha % (Auto) % Eos % (Auto) % Baso % (Auto) % Neut # (Auto) (1.40-6.50) K/uL Lymph # (Auto) (1.20-3.40) K/uL Desha # (Auto) (0.11-0.59) K/uL Eos # (Auto) (0.00-0.50) K/uL Baso # (Auto) (0.00-0.20) K/uL Immature Gran # (Auto) (0.01-0.20) K/uL Sodium (136-145) mmol/L Potassium (3.5-5.1) mmol/L Chloride (98-107) mmol/L Carbon Dioxide (21-32) mmol/L Anion Gap (3-11) BUN (6-23) mg/dl Creatinine (0.6-1.2) mg/dl Est Cr Clr Drug Dosing ml/min Est GFR ( Amer) ml/min Est GFR (Non-Af Amer) ml/min BUN/Creatinine Ratio (10-20) Glucose (70-99(Fasting)) mg/dl Estimat Average Glucose mg/dl Hemoglobin A1c (4.5-5.6) % Lactate (0.4-2.0) mmol/L Calcium (8.6-10.3) mg/dl Magnesium 1.7 (1.7-2.4) mg/dl Total Bilirubin (0.2-1.0) mg/dl Direct Bilirubin (0-0.2) mg/dl AST (13-39) U/L ALT (7-52) U/L Alkaline Phosphatase (34-104) U/L Total Protein (6.0-8.3) gm/dl Albumin (3.4-5.0) gm/dl Procalcitonin (0-0.5) ng/ml Adenovirus (PCR) (NotDetected) B. pertussis DNA (PCR) (NotDetected) B.parapertussis DNA PCR (NotDetected) C. pneumoniae DNA (PCR) (NotDetected) Coronavirus OC43 (PCR) (NotDetected) Coronavirus HKU1 (PCR) (NotDetected) Coronavirus 229E (PCR) (NotDetected) SARS-CoV-2 (PCR) (NotDetected) Coronavirus NL63 (PCR) (NotDetected) Human Metapneumovir PCR (NotDetected) Influenza Type A (PCR) (NotDetected) Influenza Type B (PCR) (NotDetected) M. pneumoniae (PCR) (NotDetected) Parainfluenza 1 (PCR) (NotDetected) Parainfluenza 2 (PCR) (NotDetected) Parainfluenza 3 (PCR) (NotDetected) Parainfluenza 4 (PCR) (NotDetected) RSV (PCR) (NotDetected) Entero/Rhino (PCR) (NotDetected) Administered Medications Sodium Chloride (Nss) 1,000 mls @ 50 mls/hr IV .Q20H ONE Stop: 01/10/23 01:10 Last Admin: 01/09/23 06:20 Dose: 50 mls/hr Documented By: JACOB Discontinued Medications Acetaminophen (Acetaminophen 500 Mg Tab) 1,000 mg PO NOW STA Stop: 01/08/23 23:21 Last Admin: 01/09/23 00:26 Dose: 1,000 mg Documented By: JACOB Sodium Chloride (Nss) 500 mls @ 999 mls/hr IV .Q31M JENNIFER Stop: 01/09/23 00:00 Last Infusion: 01/09/23 01:25 Dose: Infused Documented By: Admin: 01/09/23 00:27 Dose: 999 mls/hr Documented By: JACOB Ampicillin Sodium/Sulbactam Sodium 3,000 mg/ Sodium Chloride 100 mls @ 200 mls/hr IV NOW STA Stop: 01/09/23 04:01 Last Infusion: 01/09/23 05:11 Dose: Infused Documented By: Admin: 01/09/23 04:25 Dose: 200 mls/hr Documented By: JACOB Sodium Chloride (Nss) 500 mls @ 999 mls/hr IV .Q31M ONE Stop: 01/09/23 05:07 Last Admin: 01/09/23 06:00 Dose: Not Given Documented By: JACOB Sodium Chloride (Nss) 1,000 mls @ 125 mls/hr IV .Q8H JENNIFER Stop: 02/08/23 04:44 Last Admin: 01/09/23 05:59 Dose: Not Given Documented By: JACOB Doxycycline Hyclate 100 mg/ (Dextrose) 100 mls @ 50 mls/hr IV NOW STA Stop: 01/09/23 07:30 Last Admin: 01/09/23 06:20 Dose: 50 mls/hr Documented By: JACOB Ioversol (Optiray 320 500ml) 100 ml IV ONCE ONE Stop: 01/09/23 01:25 Last Admin: 01/09/23 01:24 Dose: 76 ml Documented By: WADE Ropinirole HCl (Ropinirole Hcl 1 Mg Tablet) 1 mg PO NOW STA Stop: 01/09/23 04:10 Last Admin: 01/09/23 04:37 Dose: 1 mg Documented By: JACOB Imaging Data Radiologist's Impression: Chest X-Ray 01/08/23 23:20 XR chest 1V portable CLINICAL HISTORY: Sepsis TECHNIQUE: Single frontal radiograph of the chest was obtained. Comparison: Comparison is made to chest radiograph 02/10/2022 FINDINGS: An implanted pacemaker is seen. Cardiomegaly is noted. The aortic arch is calcified. Reticular interstitial opacities are seen. No evidence of pleural effusion or pneumothorax. IMPRESSION: No acute chest disease. Cardiomegaly is noted. ACT 112: Negative or not required by law. Electronically signed by: Jeffery Campbell M.D. 01/09/2023 7:26 AM Pelvis Ultrasound 01/08/23 23:20 Exam(s): US PELVIS EXAM: US Pelvis Transabdominal, Complete CLINICAL HISTORY: Post operative fever. TECHNIQUE: Real-time complete transabdominal pelvic ultrasound with image documentation. COMPARISON: No relevant prior studies available. FINDINGS: Uterus/cervix: There is a 3 cm fluid collection in the endometrial stripe which is nonspecific. The uterus measures 6.3 x 3.5 x 5.7 cm. No myometrial mass. Right ovary: The ovaries are nonvisualized overlying bowel gas. Left ovary: See above. Free fluid: No free fluid. Bladder: Unremarkable as visualized. Wall is normal thickness for degree of distention. IMPRESSION: There is a 3 cm fluid collection in the endometrial stripe which is nonspecific. Cannot exclude endometritis. Electronically signed by: Ann-Marie Ordoñez MD 01/09/23 02:09 AM Abdomen/Pelvis CT 01/08/23 23:35 Exam(s): CT ABDOMEN + PELVIS With Contrast IV Amt: 76 ML OPTIRAY 320 EXAM: CT Abdomen and Pelvis With Intravenous Contrast CLINICAL HISTORY: Fever. TECHNIQUE: Axial computed tomography images of the abdomen and pelvis with intravenous contrast. CTDI is 28.02 mGy and DLP is 1395.32 mGy-cm. Automated exposure control was utilized for the study. A dose lowering technique was utilized adhering to the principles of ALARA. CONTRAST: Patient received 76 ML OPTIRAY 320 of IV contrast COMPARISON: Pelvic ultrasound from earlier today FINDINGS: Lung bases: Left basilar airspace opacity may represent atelectasis, cannot exclude aspiration/atypical infection. ABDOMEN: Liver: Unremarkable. No mass. Gallbladder and bile ducts: Moderate pneumobilia. No calcified stones. No ductal dilation. Pancreas: Unremarkable. No mass. No ductal dilation. Spleen: Unremarkable. No splenomegaly. Adrenals: Unremarkable. No mass. Kidneys and ureters: Unremarkable. No solid mass. No hydronephrosis. Stomach and bowel: Diverticulosis. No obstruction. No mucosal thickening. PELVIS: Appendix: Normal appendix. Bladder: Unremarkable. No mass. Reproductive: Unremarkable as visualized. ABDOMEN and PELVIS: Intraperitoneal space: Nonspecific free fluid in the endometrium. No free air. Bones/joints: No acute fracture. No dislocation. Soft tissues: Unremarkable. Vasculature: Mild atherosclerosis. No abdominal aortic aneurysm. Lymph nodes: Unremarkable. No enlarged lymph nodes. IMPRESSION: 1. Nonspecific free fluid in the endometrium. 2. Left basilar airspace opacity may represent atelectasis, cannot exclude aspiration/atypical infection. 3. Diverticulosis. 4. Moderate pneumobilia. Electronically signed by: Ann-Marie Ordoñez MD 01/09/23 02:16 AM Discharge Plan Visit Data Chief Complaint: Fever Stated Complaint: Fever ED Provider: Fabian Bazan Discharge Problem: Postoperative fever Discharge Instructions Interventions: ED Discharge Assessment Last Done: 01/09/23 06:25
[2023-01-09 00:34] LABS: Basophils # (auto) 0.07 K/uL (0.00-0.20); Basophils % (auto) 0.4 %; Eosinophils # (auto) 0.12 K/uL (0.00-0.50); Eosinophils % (auto) 0.8 %; Hematocrit (blood only) 40.5 % (37.0-47.0); Hemoglobin 13.5 g/dl (12.0-16.0); Immature Granulocytes # (auto) 0.07 K/uL (0.01-0.20); Immature Granulocytes % (auto) 0.4 %; Lymphocytes # (auto) 0.94 K/uL (1.20-3.40); Mean Corpuscular Hemoglobin 31.8 pg (25.0-34.0); Mean Corpuscular Hgb Conc 33.3 g/dL (32.0-36.0); Mean Corpuscular Volume 95.3 fL (80.0-100.0); Mean Platelet Volume 9.7 fL (9.4-12.4); Monocytes # (auto) 0.68 K/uL (0.11-0.59); Monocytes % (auto) 4.3 %; Neutrophils # (auto) 13.87 K/uL (1.40-6.50); Neutrophils % (auto) 88.1 %; Platelet Count 316 K/uL (130-400); RDW Coefficient of Variation 13.2 % (11.5-14.5); Red Blood Count 4.25 M/uL (4.20-5.40); White Blood Count 15.75 K/ul (4.8-10.8)
[2023-01-09 00:51] LABS: Albumin Level 3.8 gm/dl (3.4-5.0); BUN Creatinine Ratio 17.6 (10-20); Bilirubin Direct 0.2 mg/dl (0-0.2); Bilirubin,Total 0.8 mg/dl (0.2-1.0); Calcium 9.6 mg/dl (8.6-10.3); Est GFR (African American) 67.1 ml/min; Est GFR (Non-African American) 57.9 ml/min; Magnesium 1.9 mg/dl (1.7-2.4); Potassium 3.5 mmol/L (3.5-5.1); Total Protein 7.2 gm/dl (6.0-8.3)
[2023-01-09] MEDS ORDERED: OPTIRAY 320 500ml IV ONE (01:24)
[2023-01-09 01:42] LABS: Appearance Urine Cloudy (Clear); Bacteria Urine Automated Negative (Negative); Bilirubin Urine Negative (Negative); Blood Urine 2+ (Negative); Color Urine Yellow; Epithelial Cell Urine Auto >30 /lpf (0-5); Glucose Urine UA Negative (Negative); Ketones Urine Negative (Negative); Leukocyte Esterase Urine 1+ (Negative); Nitrite Urine Negative (Negative); Protein Urine Negative (Negative); Specific Gravity Urine 1.016 (1.000-1.030); Urobilinogen Urine Positive (Negative)
[2023-01-09 01:43] LABS: Adenovirus PCR Not Detected (NotDetected); Bordetella parapertussis PCR Not Detected (NotDetected); Bordetella pertussis PCR Not Detected (NotDetected); Chlamydia pneumoniae PCR Not Detected (NotDetected); Coronavirus 229E PCR Not Detected (NotDetected); Coronavirus CoV-2 (COVID19)PCR Not Detected (NotDetected); Coronavirus HKU1 PCR Not Detected (NotDetected); Coronavirus NL63 PCR Not Detected (NotDetected); Coronavirus OC43PCR Not Detected (NotDetected); Human Metapneumovirus PCR Not Detected (NotDetected); Influenza A PCR Not Detected (NotDetected); Influenza B PCR Not Detected (NotDetected); Mycoplasma pneumoniae PCR Not Detected (NotDetected); Parainfluenza Virus 1 PCR Not Detected (NotDetected); Parainfluenza Virus 2 PCR Not Detected (NotDetected); Parainfluenza Virus 3 PCR Not Detected (NotDetected); Parainfluenza Virus 4 PCR Not Detected (NotDetected); Respiratory Syncytial VirusPCR Not Detected (NotDetected); Rhinovirus/Enterovirus PCR Not Detected (NotDetected)
[2023-01-09 01:51] LABS: Cast Urine Automated 0 /lpf (0-5)
--- NOTE | 2023-01-09 02:09 | Ultrasound Report ---
Exam(s): US PELVIS EXAM: US Pelvis Transabdominal, Complete CLINICAL HISTORY: Post operative fever. TECHNIQUE: Real-time complete transabdominal pelvic ultrasound with image documentation. COMPARISON: No relevant prior studies available. FINDINGS: Uterus/cervix: There is a 3 cm fluid collection in the endometrial stripe which is nonspecific. The uterus measures 6.3 x 3.5 x 5.7 cm. No myometrial mass. Right ovary: The ovaries are nonvisualized overlying bowel gas. Left ovary: See above. Free fluid: No free fluid. Bladder: Unremarkable as visualized. Wall is normal thickness for degree of distention. IMPRESSION: There is a 3 cm fluid collection in the endometrial stripe which is nonspecific. Cannot exclude endometritis. Electronically signed by: Ann-Marie Ordoñez MD 01/09/23 02:09 AM
--- NOTE | 2023-01-09 02:17 | CT Scan Report ---
Exam(s): CT ABDOMEN + PELVIS With Contrast IV Amt: 76 ML OPTIRAY 320 EXAM: CT Abdomen and Pelvis With Intravenous Contrast CLINICAL HISTORY: Fever. TECHNIQUE: Axial computed tomography images of the abdomen and pelvis with intravenous contrast. CTDI is 28.02 mGy and DLP is 1395.32 mGy-cm. Automated exposure control was utilized for the study. A dose lowering technique was utilized adhering to the principles of ALARA. CONTRAST: Patient received 76 ML OPTIRAY 320 of IV contrast COMPARISON: Pelvic ultrasound from earlier today FINDINGS: Lung bases: Left basilar airspace opacity may represent atelectasis, cannot exclude aspiration/atypical infection. ABDOMEN: Liver: Unremarkable. No mass. Gallbladder and bile ducts: Moderate pneumobilia. No calcified stones. No ductal dilation. Pancreas: Unremarkable. No mass. No ductal dilation. Spleen: Unremarkable. No splenomegaly. Adrenals: Unremarkable. No mass. Kidneys and ureters: Unremarkable. No solid mass. No hydronephrosis. Stomach and bowel: Diverticulosis. No obstruction. No mucosal thickening. PELVIS: Appendix: Normal appendix. Bladder: Unremarkable. No mass. Reproductive: Unremarkable as visualized. ABDOMEN and PELVIS: Intraperitoneal space: Nonspecific free fluid in the endometrium. No free air. Bones/joints: No acute fracture. No dislocation. Soft tissues: Unremarkable. Vasculature: Mild atherosclerosis. No abdominal aortic aneurysm. Lymph nodes: Unremarkable. No enlarged lymph nodes. IMPRESSION: 1. Nonspecific free fluid in the endometrium. 2. Left basilar airspace opacity may represent atelectasis, cannot exclude aspiration/atypical infection. 3. Diverticulosis. 4. Moderate pneumobilia. Electronically signed by: Ann-Marie Ordoñez MD 01/09/23 02:16 AM
--- OUTSIDE RECORDS SUMMARY | 2023-01-09 03:06 | External Medical Summary | Summary of Care ---
Author Name Unknown Organization [facility] Address [address] [place] [address] Phone [phone] Care Team Providers Care Surgical Aides Teacher Name Role Phone Alexandra Connolly MD Primary Care Provider [phone] Reason for Visit * Reason Comments Outpatient Testing Encounter Details Date Type Department Care Team (Late st Contact Info) Description 01/07/2023 3:10 PM EST Laboratory Laboratory Scenery [place] [address] [place] [phone] [place], [facility] [address] [place] [address] Uremic pericarditis; HTN, goal below 140/90 Allergies No known active allergiesdocumented as of this encounter (statuses as of 01/07/2023) Medications Medication Sig Dispensed Refills Start Date End Date Status POTASSIUM 75 MG PO TABS 2 tablets daily 0 Active METOPROLOL TARTRATE 50 MG PO TABS one pill each day 0 Active FUROSEMIDE 20 MG PO TABS one pill each day 0 Active LEVOTHYROXINE SODIUM 75 MCG OR TABS one pill each day 0 Act rob LIPITOR 10 MG PO TABS one pill each day 0 Active ROPINIROLE HCL 1 MG PO TABS one pill each day 0 Active VITAMIN D-3 5000 UNITS PO TABS one pill each day 0 Active documented as of this encounter (statuses as of 01/07/2023) Social History Tobacco Use Types Packs/Day Years Used Date Smoking Tobacco: Former Cigarettes Q uit: 03/26/2016 Alcohol Use Standard Drinks/Week Comments No 0 (1 standard drink = 0.6 oz pur e alcohol) Sex and Gender Information Value Date Recorded Sex Assigned at Not on file Gender Identity Not on file Sexual Orientation Not on file Job Start Date Occupation Industry Not on file Not on file Not on file documented as of this encounter Plan of Treatment Pending Results Name Type Priority Associated Diagnoses Date /Time COMPREHENSIVE METABOLIC PANEL Lab Routine Uremic pericarditis HTN, goal below 140/90 01/07/2023 2:33 PM EST Health Maintenance Due Date Last Done Comments COVID-19 Vaccine (#1) 02/02/1941 Depression Screening 1952 DTaP,Tdap,and Td Vaccines (1 - Tdap) 1957 Zoster Vaccines (1 of 2) 1988 Pneumococcal Vaccine: 65+ Years (2 - PCV) 04/16/2017 04/16/2016 Hepatitis B (3 of 3 - 19+ 3-dose series) 01/18/2020 11/23/2019, 06/09/2019, 04/03/2019 Influenza Vaccine (FLU shot) (#1) 2022 12/16/2018 TSH 09/07/2023 09/06/2022, 04/19, 12/15/2021, Additional history exists DXA Scan 11/12/2029 11/12/2022, 08/19, 10/10/2016, Additional history exists GARDASIL-HPV IMMUNIZATION SERIES Aged Out No longer eligible based on patient's age to complete this topic MENINGOCOCCAL (MENACTRA/MENVEO) Aged Out No longer eligible based on patient's age to complete this topic documented as of this encounter Medical Devices Not on filedocumented as of this encounter Procedures Procedure Name Priority Date/Time Associated Diagnosis Comments CBC Routine 01/07/2023 2:33 PM EST Uremic pericarditis documented in this encounter Results * CBC (01/07/2023 2:33 PM EST) WBC 7.84 4.00 - 10.80 K/uL 01/07/2023 2:40 PM EST [facility]-02 RBC 4.43 3.85 - 5.15 M/uL 01/07/2023 2:40 PM [facility] 56 HGB 14.0 12.0 - 15.3 g/dL 01/07/2023 2:40 PM EST [facility] 56 HCT 44.8 36.0 - 45.2 % 01/07/2023 2:40 PM [facility] 56 MCV 101.1 81.5 - 97.5 fL 01/07/2023 2:40 PM EST [facility] 56 MCH 31.6 27.0 - 34.0 pg 01/07/2023 2:40 PM EST [facility] 56 MCHC 31.3 32.0 - 36.0 g/dL 01/07/2023 2:40 PM EST [facility] 56- RDW 13.5 11.5 - 15.5 % 01/07/2023 2:40 PM EST [facility] 56 PLT 342 140 - 400 K/uL 01/07/2023 2:40 PM [facility] 56 MPV 9.3 6.6 - 11.1 fL 01/07/2023 2:40 PM [facility] 56 Blood Venous blood specimen / Unknown Venipuncture / Unknown 01/07/2023 2:33 PM EST 01/07/2023 2:33 PM EST Alexandra Connolly MD LAB BLOOD ORDERAB LES [facility] [address] [place] [address] documented in this encounter Visit Diagnoses Diagnosis Uremic pericarditis Chronic kidney disease, unspecified HTN, goal below 140/90 Unspecified essential hypertension documented in this encounter Care Teams Surgical Aides Teacher Relationship Specialty Start Date End Date Alexandra Connolly MD [address] [place], [place] [address] [address] PCP - General Internal Medicine 05/25/22 documented as of this encounter
--- OUTSIDE RECORDS SUMMARY | 2023-01-09 03:06 | External Medical Summary ---
Author Name Unknown Address Unknown Organization [id number] [address] [place] [address] Laboratory Report Ordering Provider Test Date Status PRATIMA SOW 01/07/2023 14:33:27 Final Observation Date Value Abnormality Reference (Units ) Status BUN 01/07/2023 14:33:27 14 6-20 (mg/dL) Final Creatinine 01/07/2023 14:33:27 0.9 0.5-1.0 (mg/dL) Final Glomerular filtration rate/1.73 sq M.predicted [Volume Rate/Area] in Serum, Plasma or Blood by Creatinine-based formula (CKD-EPI) 01/07/2023 14:33:27 60 >=60 (mL/min) Final eGFR is calculated based on the CKD-EPI 2020 equation SODIUM 01/07/2023 14:33:27 145 135-146 (m mol/L) Final Potassium 01/07/2023 14:33:27 3.8 3.5-5.1 (m mol/L) Final Cl 01/07/2023 14:33:27 104 98-107 (mm ol/L) Final CO2 01/07/2023 14:33:27 32 22-32 (mmo l/L) Final Anion gap 01/07/2023 14:33:27 9 7-15 (mmol /L) Final Glucose 01/07/2023 14:33:27 103 70-120 (mg /dL) Final Albumin 01/07/2023 14:33:27 3.9 3.8-5.0 (g /dL) Final AST (Aspartate aminotransferase) 01/07/2023 14:33:27 15 10-35 (U/L) Fin al Alk Phos 01/07/2023 14:33:27 141 Above high normal 35 -130 (U/L) Final Bilirubin, Total 01/07/2023 14:33:27 0.6 <=1 .2 (mg/dL) Final Calcium 01/07/2023 14:33:27 9.6 8.4-10.2 ( mg/dL) Final Protein 01/07/2023 14:33:27 6.7 6.0-8.3 (g /dL) Final ALT (Alanine aminotransferase) 01/07/2023 14:33:27 8 Below low normal 10-35 (U/L) Final Performing Location [facility]- [address] [place] [address]
--- OUTSIDE RECORDS SUMMARY | 2023-01-09 03:06 | External Medical Summary | Summary of Care ---
Author Name Unknown Organization [facility] Address [address] [place] [address] Phone [phone] Care Team Providers Care Senior Business Development Analyst Name Role Phone Alexandra Connolly MD Primary Care Provider [phone] Encounter Details Date Type Department Care Team (Late st Contact Info) Description 01/07/2023 Orders Only Laboratory [facility] [place] [address] [place] [phone] Alexandra Connolly MD [address] [place] [address] [place] [address] Uremic pericarditis*; HTN, goal below 140/90 Allergies No known [...] as of this encounter Plan of Treatment Upcoming Encounters Date Type Department Care Team (Late st Contact Info) Description 01/07/2023 3:10 PM EST Laboratory Laboratory [address] [place] [place] [address] [place] [phone] [facility] Lab Sc[address] [facility] [place] [address] Uremic pericarditis; HTN, goal below 140/90 Pending Results Name Type Priority Associated Diagnoses Date /Time COMPREHENSIVE METABOLIC PANEL Lab Routine Uremic pericarditis HTN, goal below 140/90 01/07/2023 2:33 PM EST Scheduled Orders Name Type Priority Associated Diagnoses Orde r Schedule COMPREHENSIVE METABOLIC PANEL Lab Routine Uremic pericarditis HTN, goal below 140/90 Expected: 01/07/2023, Expires: 01/08/2024 Health Maintenance Due Date Last Done Comments [...] Not on filedocumented as of this encounter Results * CBC (01/07/2023 2:33 PM EST) WBC 7.84 4.00 - 10.80 K/uL 01/07/2023 2:40 PM EST [facility] 56- RBC 4.43 3.85 - 5.15 M/uL 01/07/2023 2:40 PM EST [facility] 56- HGB 14.0 12.0 - 15.3 g/dL 01/07/2023 2:40 PM EST [facility] 56- HCT 44.8 36.0 - 45.2 % 01/07/2023 2:40 PM EST [facility] 56- MCV 101.1 81.5 - 97.5 fL 01/07/2023 2:40 PM EST [facility] 56- MCH 31.6 27.0 - 34.0 pg 01/07/2023 2:40 PM EST [facility] 56 MCHC 31.3 32.0 - 36.0 g/dL 01/07/2023 2:40 PM EST [facility] 56 RDW 13.5 11.5 - 15.5 % 01/07/2023 2:40 PM EST [facility] 56- PLT 342 140 - 400 K/uL 01/07/2023 2:40 PM EST [facility] 56- MPV 9.3 6.6 - 11.1 fL 01/07/2023 2:40 PM EST [facility] 56-02 Blood Venous blood specimen / Unknown Venipuncture / Unknown 01/07/2023 2:33 PM EST 01/07/2023 2:33 PM EST Alexandra Connolly MD LAB BLOOD ORDERAB LES [facility] [address] [place] [address] documented in this encounter Visit Diagnoses Diagnosis Uremic pericarditis Chronic kidney disease, unspecified HTN, goal below 140/90 Unspecified essential hypertension Uremic pericarditis- Primary Chronic kidney disease, unspecified HTN, goal below 140/90 Unspecified essential hypertension documented in this encounter Care Teams Senior Business Development Analyst Relationship Specialty Start Date End Date Alexandra Connolly MD [address] [place] [address] [place] [address] PCP - General Internal Medicine 05/25/22 documented as of this encounter
--- OUTSIDE RECORDS SUMMARY | 2023-01-09 03:06 | External Medical Summary ---
Author Name Unknown Address Unknown Organization [facility] [place] [address] Laboratory Report Ordering Provider Test Date Status PRATIMA SOW 01/07/2023 14:33:27 Final Observation Date Value Abnormality Reference (Units ) Status WBC, Total 01/07/2023 14:33:27 7.84 4.00-10.8 0 (K/uL) Final RBC 01/07/2023 14:33:27 4.43 3.85-5.15 (M/uL) Final Hemoglobin 01/07/2023 14:33:27 14.0 12.0-15.3 (g/dL) Final HCT 01/07/2023 14:33:27 44.8 36.0-45.2 (%) Final MCV 01/07/2023 14:33:27 101.1 81.5-97.5 (fL) Final MCH 01/07/2023 14:33:27 31.6 27.0-34.0 (pg) Final MCHC 01/07/2023 14:33:27 31.3 32.0-36.0 (g/dL) Final RDW 01/07/2023 14:33:27 13.5 11.5-15.5 (%) Final Platelets 01/07/2023 14:33:27 342 140-400 (K /uL) Final MPV 01/07/2023 14:33:27 9.3 6.6-11.1 ( fL) Final Performing Location [facility] [place] [address]
[2023-01-09] MEDS ORDERED: AMPICILLIN/SULBACTAM SOD 3,000 MG in SODIUM CHLOR 0.9% MINI-B 100 ML IV STA (03:32)
[2023-01-09] MEDS ORDERED: rOPINIRole HCL 1 MG TABLET PO STA (04:09)
[2023-01-09] MEDS ORDERED: SODIUM CHLORIDE 0.9% 500 ML IV ONE (04:37)
[2023-01-09] MEDS ORDERED: SODIUM CHLORIDE 0.9% 1,000 ML IV SCH (04:45)
--- NOTE | 2023-01-09 05:09 | History & Physical Report ---
Date of Service January 09, 2023 Assessment & Plan (1) Sepsis: Plan: Possibly secondary to postprocedural endometritis ? Complicated UTI SSS status post PPM on Eliquis mild to moderate TR hypertension, stable COPD, baseline lung status postsurgical hypothyroidism, euthyroid as of recent outpatient TSH done at [facility] lab Hyperglycemia likely secondary to prediabetes, outpatient hemoglobin A1c of 6.1 from 2019 past tobacco abuse GMF CS, Unasyn for now Gynecology consult re: postop eval, possible postprocedural endometritis (ER provider already in touch with Dr. Zheng.) DVT prophylaxis. Eliquis Full code Text document was generated using [employer] voice recognition software. It may contain grammatical or spelling errors. Kindly contact undersigned for clarification of any documentation item in question. History of Present Illness Chief Complaint: Fever Primary Care Provider: Charles Connolly History obtained from patient and records. Medical history significant for SSS status post PPM on Eliquis, mild to moderate TR, hypertension, hyperlipidemia, COPD, postsurgical hypothyroidism, GERD, RLS, past tobacco abuse. Last confinement January 2022 for COPD exacerbation. 2 weeks ago, patient underwent hysteroscopy and D&C, polyp removal with MyoSure for endometrial thickening on ultrasound by [employer] secondary school teacher. No immediate postprocedure concerns. 2 days ago, patient noted achy lower abdominal discomfort with fever of 101 at home. Usual shortness of breath and leg swelling. No chest pain, no cough, no diarrhea, no dysuria symptoms. No unusual vaginal bleeding. Patient consulted ER for evaluation. IV Unasyn administered at the ER for sepsis. Medical History as above Surgical History : PPM, eye surgery, thyroidectomy, cholecystectomy, D&C, breast biopsy Family History : Breast cancer Personal/Social history : Past tobacco abuse, no EtOH intake Allergies Allergy/AdvReac Type Severity Reaction Status Date / Time No Known Allergies Allergy Verified 01/09/23 00:02 Home Medications Medication Instructions Recorded Confirmed Type acetaminophen 500 mg tablet 500 mg PO Q4H PRN Pain 12/03/18 01/09/23 History metoprolol succinate 50 mg 50 mg PO QAM 12/03/18 01/09/23 History tablet,extended release 24 hr cholecalciferol (vitamin D3) 50 50 mcg PO DAILY 11/11/19 01/09/23 History mcg (2,000 unit) tablet (Vitamin D3) ursodiol 300 mg capsule 300 mg PO BID 11/11/19 01/09/23 History ascorbic acid (vitamin C) 500 mg 500 mg PO DAILY 09/26/20 01/09/23 History tablet (Vitamin C) levothyroxine 125 mcg capsule 125 mcg PO DAILY #30 caps 09/29/20 01/09/23 Rx gabapentin 100 mg capsule 100 mg PO HS Pain 02/13/21 01/09/23 History potassium chloride 10 mEq 10 meq PO QAM 02/13/21 01/09/23 History capsule,extended release ropinirole 1 mg tablet 1 mg PO QPM RESTLESS LEGS 02/13/21 01/09/23 History apixaban 2.5 mg tablet (Eliquis) 2.5 mg PO BID #180 tabs 12/25/21 01/09/23 Rx fluticasone fur. 100 mcg-umeclid 1 inh inhalation DAILY 01/18/22 01/09/23 History 62.5 mcg-vilant 25 mcg inhalat.powder (Trelegy Ellipta) albuterol sulfate 90 mcg/actuation 2 puff inhalation QID PRN 02/10/22 01/09/23 History aerosol inhaler Shortness Of Breath Or Wheezing furosemide 40 mg tablet 40 mg PO DAILY 02/10/22 01/09/23 History pantoprazole 20 mg tablet,delayed 20 mg PO QAM 12/18/22 01/09/23 History release calcium carbonate 200 mg calcium 200 mg PO BID 01/09/23 01/09/23 History (500 mg) chewable tablet (Tums) vit C 250 mg-vit E 90 mg-zinc 40 1 tab PO BID 01/09/23 01/09/23 History mg-copper 1 lv-rhvjrz-twqysh capsule (PreserVision AREDS-2) Past Med/Surg History Medical History History of blood transfusion Macular degeneration Tachy-juli syndrome Solitary lung nodule Pulmonary emphysema CKD (chronic kidney disease) stage 3, GFR 30-59 ml/min Obstructive sleep apnea COPD (chronic obstructive pulmonary disease) GERD (gastroesophageal reflux disease) Hypothyroidism associated with surgical procedure Atrial fibrillation Pacemaker Hypertension Restless leg syndrome Surgical History History of esophagogastroduodenoscopy (EGD) Hx of colonoscopy H/O dilation and curettage H/O eye surgery History of ERCP S/P thyroidectomy S/P cholecystectomy Family History Other Cancer Social History Smoking Status: Former smoker Tobacco Type: Cigarettes Second Hand Exposure: Yes (in the past); Do You Dip or Chew Tobacco: No; Hx Alcohol Use: No Hx Substance Use: No Preferred Language: Korean Communication Ability: Effective Senior Network Security Engineer Required: No Beliefs That Will Affect Care: None marital status: Current Living Situation: Alone and Other Current Living Situation Comment: senior apartment building current occupational status: retired Feels Safe at Home: Yes Assistive Devices: Walker Review of Systems Review of Systems: As per HPI, all other systems reviewed and negative Physical Exam Physical Exam: GENERAL: Comfortable, pleasant, obese, no respiratory distress SKIN: Normal color, warm HEENT: [place] palpebral conjunctivae, no ptosis, dry buccal mucosa NECK : Supple, short neck, no tenderness CHEST : Decreased breath sounds, no tenderness HEART : RRR, no obvious murmurs ABDOMEN: Some distention, nontender EXTREMITIES : Minimal LE swelling, no LE tenderness, no other conspicuous def ormities noted NEUROLOGIC : Coherent, no facial asymmetry, no other gross focality Results & Data Results & Data Vital Signs (Past 12 Hours) Vital Signs Temp Pulse Resp BP Pulse Ox O2 Del Method 01/09/23 04:00 72 20 117/60 91 Room Air 01/09/23 03:36 66 01/09/23 03:30 67 24 124/65 93 Room Air 01/09/23 03:00 69 20 100/52 L 90 Room Air 01/09/23 02:30 67 22 107/58 L 90 Room Air 01/09/23 02:00 72 25 H 114/60 93 Room Air 01/09/23 01:30 71 24 113/58 L 91 Room Air 01/09/23 01:24 68 27 H 114/69 93 Room Air 01/09/23 00:56 37.2 C 01/09/23 00:30 68 22 150/74 H 92 Room Air 01/09/23 00:00 68 22 159/86 H 92 Room Air 01/08/23 23:30 63 22 131/68 93 Room Air 01/08/23 23:24 67 01/08/23 23:15 37.8 C H 69 20 168/77 H 92 Room Air Laboratory Results Laboratory Results WBC 15.75 K/ul (4.8-10.8) H 01/09/23 00:03 RBC 4.25 M/uL (4.20-5.40) 01/09/23 00:03 Hgb 13.5 g/dl (12.0-16.0) 01/09/23 00:03 Hct 40.5 % (37.0-47.0) 01/09/23 00:03 MCV 95.3 fL (80.0-100.0) 01/09/23 00:03 MCH 31.8 pg (25.0-34.0) 01/09/23 00:03 MCHC 33.3 g/dL (32.0-36.0) 01/09/23 00:03 RDW Std Deviation 46.0 fL (36.4-46.3) 01/09/23 00:03 RDW Coeff of Agusto 13.2 % (11.5-14.5) 01/09/23 00:03 Plt Count 316 K/uL (130-400) 01/09/23 00:03 MPV 9.7 fL (9.4-12.4) 01/09/23 00:03 Immature Gran % (Auto) 0.4 % 01/09/23 00:03 Neut % (Auto) 88.1 % 01/09/23 00:03 Lymph % (Auto) 6.0 % 01/09/23 00:03 [place] % (Auto) 4.3 % 01/09/23 00:03 Eos % (Auto) 0.8 % 01/09/23 00:03 Baso % (Auto) 0.4 % 01/09/23 00:03 Neut # (Auto) 13.87 K/uL (1.40-6.50) H 01/09/23 00:03 Lymph # (Auto) 0.94 K/uL (1.20-3.40) L 01/09/23 00:03 [place] # (Auto) 0.68 K/uL (0.11-0.59) H 01/09/23 00:03 Eos # (Auto) 0.12 K/uL (0.00-0.50) 01/09/23 00:03 Baso # (Auto) 0.07 K/uL (0.00-0.20) 01/09/23 00:03 Immature Gran # (Auto) 0.07 K/uL (0.01-0.20) 01/09/23 00:03 Sodium 141 mmol/L (136-145) 01/09/23 00:03 Potassium 3.5 mmol/L (3.5-5.1) 01/09/23 00:03 Chloride 104 mmol/L (98-107) 01/09/23 00:03 Carbon Dioxide 28 mmol/L (21-32) 01/09/23 00:03 Anion Gap 9 (3-11) 01/09/23 00:03 BUN 16 mg/dl (6-23) 01/09/23 00:03 Creatinine 0.91 mg/dl (0.6-1.2) 01/09/23 00:03 Est Cr Clr Drug Dosing 48.0 ml/min 01/09/23 00:03 Est GFR ( Amer) 67.1 ml/min 01/09/23 00:03 Est GFR (Non-Af Amer) 57.9 ml/min 01/09/23 00:03 BUN/Creatinine Ratio 17.6 (10-20) 01/09/23 00:03 Glucose 133 mg/dl (70-99(Fasting)) H 01/09/23 00:03 Lactate 1.4 mmol/L (0.4-2.0) 01/09/23 02:26 Calcium 9.6 mg/dl (8.6-10.3) 01/09/23 00:03 Magnesium 1.9 mg/dl (1.7-2.4) 01/09/23 00:03 Total Bilirubin 0.8 mg/dl (0.2-1.0) 01/09/23 00:03 Direct Bilirubin 0.2 mg/dl (0-0.2) 01/09/23 00:03 AST 12 U/L (13-39) L 01/09/23 00:03 ALT 8 U/L (7-52) 01/09/23 00:03 Alkaline Phosphatase 122 U/L (34-104) H 01/09/23 00:03 Total Protein 7.2 gm/dl (6.0-8.3) 01/09/23 00:03 Albumin 3.8 gm/dl (3.4-5.0) 01/09/23 00:03 Procalcitonin < 0.05 ng/ml (0-0.5) 01/09/23 00:03 Urine Color Yellow 01/09/23 Unknown Urine Appearance Cloudy (Clear) A 01/09/23 Unknown Urine pH 8.0 (4.5-7.5) H 01/09/23 Unknown Ur Specific [place] 1.016 (1.000-1.030) 01/09/23 Unknown Urine Protein Negative (Negative) 01/09/23 Unknown Urine Glucose (UA) Negative (Negative) 01/09/23 Unknown Urine Ketones Negative (Negative) 01/09/23 Unknown Urine Blood 2+ (Negative) H 01/09/23 Unknown Urine Nitrite Negative (Negative) 01/09/23 Unknown Urine Bilirubin Negative (Negative) 01/09/23 Unknown Urine Urobilinogen Positive (Negative) H 01/09/23 Unknown Ur Leukocyte Esterase 1+ (Negative) H 01/09/23 Unknown Urine WBC (Auto) 10-30 /hpf (0-5) H 01/09/23 Unknown Urine RBC (Auto) 5-10 /hpf (0-4) H 01/09/23 Unknown U Hyaline Cast (Auto) 0 /lpf (0-5) 01/09/23 Unknown U Epithel Cells (Auto) >30 /lpf (0-5) H 01/09/23 Unknown Urine Bacteria (Auto) Negative (Negative) 01/09/23 Unknown Adenovirus (PCR) Not Detected (NotDetected) 01/09/23 00:05 B. pertussis DNA (PCR) Not Detected (NotDetected) 01/09/23 00:05 B.parapertussis DNA PCR Not Detected (NotDetected) 01/09/23 00:05 C. pneumoniae DNA (PCR) Not Detected (NotDetected) 01/09/23 00:05 Coronavirus OC43 (PCR) Not Detected (NotDetected) 01/09/23 00:05 Coronavirus HKU1 (PCR) Not Detected (NotDetected) 01/09/23 00:05 Coronavirus 229E (PCR) Not Detected (NotDetected) 01/09/23 00:05 SARS-CoV-2 (PCR) Not Detected (NotDetected) 01/09/23 00:05 Coronavirus NL63 (PCR) Not Detected (NotDetected) 01/09/23 00:05 Human Metapneumovir PCR Not Detected (NotDetected) 01/09/23 00:05 Influenza Type A (PCR) Not Detected (NotDetected) 01/09/23 00:05 Influenza Type B (PCR) Not Detected (NotDetected) 01/09/23 00:05 M. pneumoniae (PCR) Not Detected (NotDetected) 01/09/23 00:05 Parainfluenza 1 (PCR) Not Detected (NotDetected) 01/09/23 00:05 Parainfluenza 2 (PCR) Not Detected (NotDetected) 01/09/23 00:05 Parainfluenza 3 (PCR) Not Detected (NotDetected) 01/09/23 00:05 Parainfluenza 4 (PCR) Not Detected (NotDetected) 01/09/23 00:05 RSV (PCR) Not Detected (NotDetected) 01/09/23 00:05 Entero/Rhino (PCR) Not Detected (NotDetected) 01/09/23 00:05 Impressions Pelvis Ultrasound 01/08/23 23:20 Exam(s): US PELVIS EXAM: US Pelvis Transabdominal, Complete CLINICAL HISTORY: Post operative fever. TECHNIQUE: Real-time complete transabdominal pelvic ultrasound with image documentation. COMPARISON: No relevant prior studies available. FINDINGS: Uterus/cervix: There is a 3 cm fluid collection in the endometrial stripe which is nonspecific. The uterus measures 6.3 x 3.5 x 5.7 cm. No myometrial mass. Right ovary: The ovaries are nonvisualized overlying bowel gas. Left ovary: See above. Free fluid: No free fluid. Bladder: Unremarkable as visualized. Wall is normal thickness for degree of distention. IMPRESSION: There is a 3 cm fluid collection in the endometrial stripe which is nonspecific. Cannot exclude endometritis. Electronically signed by: Ann-Marie Ordoñez MD 01/09/23 02:09 AM Abdomen/Pelvis CT 01/08/23 23:35 Exam(s): CT ABDOMEN + PELVIS With Contrast IV Amt: 76 ML OPTIRAY 320 EXAM: CT Abdomen and Pelvis With Intravenous Contrast CLINICAL HISTORY: Fever. TECHNIQUE: Axial computed tomography images of the abdomen and pelvis with intravenous contrast. CTDI is 28.02 mGy and DLP is 1395.32 mGy-cm. Automated exposure control was utilized for the study. A dose lowering technique was utilized adhering to the principles of ALARA. CONTRAST: Patient received 76 ML OPTIRAY 320 of IV contrast COMPARISON: Pelvic ultrasound from earlier today FINDINGS: Lung bases: Left basilar airspace opacity may represent atelectasis, cannot exclude aspiration/atypical infection. ABDOMEN: Liver: Unremarkable. No mass. Gallbladder and bile ducts: Moderate pneumobilia. No calcified stones. No ductal dilation. Pancreas: Unremarkable. No mass. No ductal dilation. Spleen: Unremarkable. No splenomegaly. Adrenals: Unremarkable. No mass. Kidneys and ureters: Unremarkable. No solid mass. No hydronephrosis. Stomach and bowel: Diverticulosis. No obstruction. No mucosal thickening. PELVIS: Appendix: Normal appendix. Bladder: Unremarkable. No mass. Reproductive: Unremarkable as visualized. ABDOMEN and PELVIS: Intraperitoneal space: Nonspecific free fluid in the endometrium. No free air. Bones/joints: No acute fracture. No dislocation. Soft tissues: Unremarkable. Vasculature: Mild atherosclerosis. No abdominal aortic aneurysm. Lymph nodes: Unremarkable. No enlarged lymph nodes. IMPRESSION: 1. Nonspecific free fluid in the endometrium. 2. Left basilar airspace opacity may represent atelectasis, cannot exclude aspiration/atypical infection. 3. Diverticulosis. 4. Moderate pneumobilia. Electronically signed by: Ann-Marie Ordoñez MD 01/09/23 02:16 AM Diagnostic Findings Chest x-ray as per my interpretation cardiomegaly EKG as per my interpretation rate 80, paced rhythm
--- NOTE | 2023-01-09 05:10 | OB/GYN Consultation ---
Date of Consultation January 09, 2023 Assessment & Plan (1) Postoperative fever: Reviewed exam findings, labs, imaging results with patient. While postoperative endometritis is very uncommon after D&C procedure, there is no other working diagnosis at this point to explain patient's fever. Her imaging results are consistent with normal postoperative findings. No vaginal discharge or cervical motion tenderness on exam, however she does have some mild suprapubic tenderness during pelvic exam. She has had blood cultures drawn in ER, and has already rec'd a dose of Unasyn. Would recommend continue to treat with antibiotic coverage for PID - IV Unasyn 3g Q6 with PO doxycyline 100mg BID. In 24-48h, if improvement in fever, would transition to PO doxycycline 100mg BID + PO metronidazole 500mg BID for 14-day course. History of Present Illness Reason for Consultation: fever Requesting Physician: Dr Bazan Attending Physician: Dr Bazan History of Present Illness 82yo presented to ER with fever. She underwent hysteroscopy, dilation & curettage with Dr Martinez on 12/28/22. From operative report, 500cc fluid deficit, 5ml EBL. Large intracavitary lesion, pathology showing endometrial polyp. She has not had problems since the surgery, until she felt feverish tod ay. At this point, reports no vaginal bleeding, no vaginal discharge. No pelvic pain. Some upper abdominal discomfort, this has happened before with prior gallstones. Allergies Allergy/AdvReac Type Severity Reaction Status Date / Time No Known Allergies Allergy Verified 01/09/23 00:02 Home Medications Medication Instructions Recorded Confirmed Type acetaminophen 500 mg tablet 500 mg PO Q4H PRN Pain 12/03/18 01/09/23 History metoprolol succinate 50 mg 50 mg PO QAM 12/03/18 01/09/23 History tablet,extended release 24 hr cholecalciferol (vitamin D3) 50 50 mcg PO DAILY 11/11/19 01/09/23 History mcg (2,000 unit) tablet (Vitamin D3) ursodiol 300 mg capsule 300 mg PO BID 11/11/19 01/09/23 History ascorbic acid (vitamin C) 500 mg 500 mg PO DAILY 09/26/20 01/09/23 History tablet (Vitamin C) levothyroxine 125 mcg capsule 125 mcg PO DAILY #30 caps 09/29/20 01/09/23 Rx gabapentin 100 mg capsule 100 mg PO HS Pain 02/13/21 01/09/23 History potassium chloride 10 mEq 10 meq PO QAM 02/13/21 01/09/23 History capsule,extended release ropinirole 1 mg tablet 1 mg PO QPM RESTLESS LEGS 02/13/21 01/09/23 History apixaban 2.5 mg tablet (Eliquis) 2.5 mg PO BID #180 tabs 12/25/21 01/09/23 Rx fluticasone fur. 100 mcg-umeclid 1 inh inhalation DAILY 01/18/22 01/09/23 History 62.5 mcg-vilant 25 mcg inhalat.powder (Trelegy Ellipta) albuterol sulfate 90 mcg/actuation 2 puff inhalation QID PRN 02/10/22 01/09/23 History aerosol inhaler Shortness Of Breath Or Wheezing furosemide 40 mg tablet 40 mg PO DAILY 02/10/22 01/09/23 History pantoprazole 20 mg tablet,delayed 20 mg PO QAM 12/18/22 01/09/23 History release calcium carbonate 200 mg calcium 200 mg PO BID 01/09/23 01/09/23 History (500 mg) chewable tablet (Tums) vit C 250 mg-vit E 90 mg-zinc 40 1 tab PO BID 01/09/23 01/09/23 History mg-copper 1 [id number] capsule (PreserVision AREDS-2) Patient History Medical History History of blood transfusion Macular degeneration Tachy-juli syndrome Solitary lung nodule Pulmonary emphysema CKD (chronic kidney disease) stage 3, GFR 30-59 ml/min Obstructive sleep apnea COPD (chronic obstructive pulmonary disease) GERD (gastroesophageal reflux disease) Hypothyroidism associated with surgical procedure Atrial fibrillation Pacemaker Hypertension Restless leg syndrome Surgical History History of esophagogastroduodenoscopy (EGD) Hx of colonoscopy H/O dilation and curettage H/O eye surgery History of ERCP S/P thyroidectomy S/P cholecystectomy Family History Other Cancer Social History Smoking Status: Former smoker Tobacco Type: Cigarettes Second Hand Exposure: Yes (in the past); Do You Dip or Chew Tobacco: No; Hx Alcohol Use: No Hx Substance Use: No Preferred Language: Albanian Communication Ability: Effective Director Immunology Required: No Beliefs That Will Affect Care: None marital status: Current Living Situation: Alone and Other Current Living Situation Comment: senior apartment building current occupational status: retired Feels Safe at Home: Yes Assistive Devices: Denture - Upper and Walker Physical Exam Physical Exam: Gen AAOx3 No acute distress. Able to maneuver well in bed. Abdomen: soft, nontender, nondistended. Pelvic exam: speculum exam performed - scant dark blood in vaginal vault, cervix is closed and appears normal. No cervical motion tenderness on exam, but there is mild suprapubic tenderness during pelvic exam. Results & Data Vital Signs (Past 12 Hours) Vital Signs Temp Pulse Resp BP Pulse Ox O2 Del Method 01/09/23 04:00 72 20 117/60 91 Room Air 01/09/23 03:36 66 01/09/23 03:30 67 24 124/65 93 Room Air 01/09/23 03:00 69 20 100/52 L 90 Room Air 01/09/23 02:30 67 22 107/58 L 90 Room Air 01/09/23 02:00 72 25 H 114/60 93 Room Air 01/09/23 01:30 71 24 113/58 L 91 Room Air 01/09/23 01:24 68 27 H 114/69 93 Room Air 01/09/23 00:56 37.2 C 01/09/23 00:30 68 22 150/74 H 92 Room Air 01/09/23 00:00 68 22 159/86 H 92 Room Air 01/08/23 23:30 63 22 131/68 93 Room Air 01/08/23 23:24 67 01/08/23 23:15 37.8 C H 69 20 168/77 H 92 Room Air PG Care Time/CCT Total # of Minutes Spent Total Time Spent with Patient: Total time spent is greater than 50% in coordination of care (as documented) at patient's floor/unit and/or counseling patient: Coding Level of Care Code 93576 INT INP/OBS CARE 2/55MIN Diagnoses Postoperative fever R50.82
[2023-01-09] MEDS ORDERED: SODIUM CHLORIDE 0.9% 1,000 ML IV ONE (05:11)
[2023-01-09] MEDS ORDERED: PROMETHAZINE HCL 6.25 MG in SODIUM CHLORIDE 0.9% 50 ML IV PRN (05:14)
[2023-01-09] MEDS ORDERED: DOXYCYCLINE HYCLATE 100 MG in DEXTROSE 5% MINI-B 100 ML IV STA (05:31)
[2023-01-09] MEDS ORDERED: ACETAMINOPHEN 325 MG TAB PO PRN (06:25)
[2023-01-09 07:17] LABS: Estimated Average Glucose 120 mg/dl; Hemoglobin A1C 5.8 % (4.5-5.6)
--- NOTE | 2023-01-09 07:28 | XRay Report ---
XR chest 1V portable CLINICAL HISTORY: Sepsis TECHNIQUE: Single frontal radiograph of the chest was obtained. Comparison: Comparison is made to chest radiograph 02/10/2022 FINDINGS: An implanted pacemaker is seen. Cardiomegaly is noted. The aortic arch is calcified. Reticular inters titial opacities are seen. No evidence of pleural effusion or pneumothorax. IMPRESSION: No acute chest disease. Cardiomegaly is noted. ACT 112: Negative or not required by law. Electronically signed by: Jeffery Campbell M.D. 01/09/2023 7:26 AM
[2023-01-09] MEDS: LEVOTHYROXINE SODIUM 125 MCG TABLET PO SCH (07:59)
[2023-01-09] MEDS: CEROVITE ADV FORMULA TAB PO SCH ×2 (08:10→22:14)
[2023-01-09] MEDS: METOPROLOL SUCC 50MG EXT REL TAB PO SCH (08:10)
[2023-01-09] MEDS: ursodioL 300 MG CAP PO SCH ×2 (08:10→22:12)
[2023-01-09] MEDS: FLUTICASONE FUROATE 100MCG 14 PUFFS/INHALER INH SCH (08:11)
[2023-01-09] MEDS: UMECLIDINIUM/VILANTEROL 62.5/25MCG 7 PUFFS/INHALER INH SCH (08:11)
[2023-01-09] MEDS: APIXABAN 2.5 MG TAB PO SCH ×2 (08:32→22:15)
[2023-01-09] MEDS ORDERED: PANTOprazole 40 MG TAB PO SCH (09:00)
[2023-01-09] MEDS: AMPICILLIN/SULBACTAM SOD 3,000 MG in SODIUM CHLOR 0.9% MINI-B 100 ML IV SCH ×3 (09:16→22:50)
[2023-01-09 13:19] LABS: GC (Neis gonorrhoeae) RNA Not Detected (NotDetected)
--- NOTE | 2023-01-09 14:21 | Communication Note ---
Date of Service: January 09, 2023 S: Patient seen at bedside. Denies any new concerns O: 110-120s SBP, HR 60s on room air; WBC 15.75, Hgb A1C 5.8%, UA 2+ blood, RBC +, infectious work up pending A/P: Ms. Zhang is a 82 year old woman who is now s/p D/C of thickened endometrium as of 12/28 admitted due to sepsis thought the be secondary to endometritis. IV Unasyn 3g Q6 with PO doxycycline 100mg BID. In 24-48h, if improvement in fever, plan to transition to PO doxycycline 100mg BID + PO metronidazole 500mg BID for 14-day course. 01/23 EOT
[2023-01-09] MEDS: rOPINIRole HCL 1 MG TABLET PO SCH (22:13)
[2023-01-09] MEDS: GABAPENTIN 100 MG CAP PO SCH (22:14)
[2023-01-09] MEDS ORDERED: INFLUENZA VACCINE HIGH-DOSE (HD-IIV4) PF 65+ 0.7mL SYR IM ONE (22:39)
[2023-01-09] MEDS: DOXYCYCLINE HYCLATE 100 MG CAP PO SCH (22:57)
[2023-01-10] MEDS ORDERED: CALCIUM CARBONATE 500 MG CHEWABLE TAB ONE (01:47)
[2023-01-10] MEDS: CALCIUM CARBONATE 500 MG CHEWABLE TAB PO PRN ×2 (01:54→07:33)
[2023-01-10] MEDS: AMPICILLIN/SULBACTAM SOD 3,000 MG in SODIUM CHLOR 0.9% MINI-B 100 ML IV SCH ×4 (05:30→22:07)
[2023-01-10] MEDS: LEVOTHYROXINE SODIUM 125 MCG TABLET PO SCH (05:34)
[2023-01-10 06:27] LABS: Basophils # (auto) 0.06 K/uL (0.00-0.20); Basophils % (auto) 0.5 %; Eosinophils # (auto) 0.35 K/uL (0.00-0.50); Eosinophils % (auto) 3.1 %; Hematocrit (blood only) 40.5 % (37.0-47.0); Hemoglobin 12.9 g/dl (12.0-16.0); Immature Granulocytes # (auto) 0.07 K/uL (0.01-0.20); Immature Granulocytes % (auto) 0.6 %; Lymphocytes % (auto) 8.7 %; Mean Corpuscular Hemoglobin 31.3 pg (25.0-34.0); Mean Corpuscular Hgb Conc 31.9 g/dL (32.0-36.0); Mean Corpuscular Volume 98.3 fL (80.0-100.0); Mean Platelet Volume 9.5 fL (9.4-12.4); Monocytes # (auto) 0.59 K/uL (0.11-0.59); Monocytes % (auto) 5.2 %; Neutrophils # (auto) 9.37 K/uL (1.40-6.50); Neutrophils % (auto) 81.9 %; Platelet Count 265 K/uL (130-400); RDW Coefficient of Variation 13.3 % (11.5-14.5); Red Blood Count 4.12 M/uL (4.20-5.40); White Blood Count 11.44 K/ul (4.8-10.8)
[2023-01-10 06:36] LABS: Albumin Globulin Ratio 1.1 (0.9-2); Albumin Level 3.4 gm/dl (3.4-5.0); BUN Creatinine Ratio 15.8 (10-20); Bilirubin,Total 0.9 mg/dl (0.2-1.0); Creatinine Clr Calc Pharmacy 57.4 ml/min; Est GFR (African American) 83.5 ml/min; Magnesium 1.9 mg/dl (1.7-2.4); Phosphorus 3.2 mg/dl (2.5-4.9); Potassium 3.4 mmol/L (3.5-5.1); Total Protein 6.4 gm/dl (6.0-8.3)
--- NOTE | 2023-01-10 07:22 | Electrocardiogram Report ---
Test Reason : Blood Pressure : / mmHG Vent. Rate : 081 BPM Atrial Rate : 084 BPM P-R Int : 000 ms QRS Dur : 170 ms QT Int : 434 ms P-R-T Axes : 000 -78 089 degrees QTc Int : 504 ms Ventricular-paced rhythm Abnormal ECG When compared with ECG of 21-DEC-2022 09:14, Vent. rate has increased BY 2 BPM Confirmed by Malachi Thomson ([id number]) on 01/10/2023 7:21:30 AM Referred By: REFERRED SELF Confirmed By:Malachi Thomson
[2023-01-10] MEDS ORDERED: POTASSIUM CHLORIDE CRTAB 20 MEQ TABCR PO STA (08:08)
--- NOTE | 2023-01-10 08:10 | Hospitalist Progress Note ---
Date of Service January 10, 2023 Assessment & Plan (1) Sepsis: Plan Mrs. Zhang is an 82 year old woman with history of hypertension, hypercholesterolemia, paroxysmal atrial fibrillation (no anticoagulation, spontaneous retroperitoneal bleed in April 2016; tolerating low-dose apixaban, December 2021), pacemaker (tachycardia/bradycardia syndrome), as well as recent D& C on 12/28 for endometrial thickening who is admitted for sepsis thought to be secondary to post-operative endometritis. Patient on broad spectrum antibiotics at this time with NGTD on current cultures. Afebrile for over 24 hours. Course complicated by shortness of breath/ARGUELLO with crackles on exam. CXR c/w heartfailure exacerbation. No recent ECHO on file and patient with rescent resuscitation 2/2 sepsis. s/p IV lasix 40mg and ECHO ordered. #sepsis thought the be secondary to endometritis. #Endometrial thickening s/p D*C OBGYN following IV Unasyn 3g Q6 with PO doxycycline 100mg BID. In 24-48h, if improvement in fever, plan to transition to PO doxycycline 100mg BID + PO metronidazole 500mg B ID for 14-day course. 01/23 EOT #Acute hypoxic respiratory failure #Cardiomegaly with pulm edema -concern for volume overload, recent aggressive IVF -s/p IV lasix 40mg -Consider IV v PO tomorrow -ECHO ordered, none found on record (recent)/no recorded history of HF -dailys weights, strict I/Os -Cardiology consult for optimization #Hypokalemia replace lytes prn, K >4 m>2 p>3 #COPD -Continue Trelegy -Continue albuterol prn #Hypertension #tachybrady syndrome s/p pacemaker #paroxysmal atrial fibrillation -Continue eliquis -Continue metoprolol xl 50mg #RLS -Continue ropinrole -Continue gabapentin #postsurgical hypothyroidism -Continue synthroid 175mcg #Prior choledocholithiasis s/p selina and ERCP 07/2016 , s/p ERCP with stent removal [id number]--pvzoyesafdx 12/2018 s/p ERCP with partial removal and stent placement--s/p ERCP at [facility] 02/09/19 with remainder of stones removed. s/p ERCP 04/08/19 with pus and sludge--s/p ERCP with stone removal, s/p ERCP at [facility] 11/2019 duodenal diverticulum and wide open sphincterotomy -Continue urosidol 300mg BID #Prediabetes -SSI #Erosive esophagitis -Continue protonix 40mg daily -Tums prn #cirrhosis on u/s 12/2018, CT 03/2019 -Follow with GI, stable DVT eliquis DISPO contingent of fluid status, PT/OT Admission and Anticipated Discharge Date Admission Date: January 09, 2023 Subjective Evaluated at bedside, reports that she is experiencing increased ARGUELLO and at rest States sensation often feels like when she uses her albuterol No O2 use at home Review of Systems Review of Systems: All systems reviewed & are unremarkable except as noted in Subjective Physical Exam Constitutional: WD/WN, vitals as above Respiratory: crackles present bibasilar Cardiovascular: RRR, no murmur, no edema Musculoskeletal: bilateral 2+pitting edema Results & Data Results & Data Vital Signs (Past 12 Hours) Vital Signs Temp Pulse Pulse Resp BP BP Pulse Ox 01/10/23 07:25 01/10/23 07:19 36.6 C 62 16 138/87 96 01/09/23 22:35 36.7 C 76 22 148/75 H 93 01/09/23 22:30 01/09/23 22:09 01/09/23 22:00 62 16 138/66 90 01/09/23 21:00 61 22 127/64 92 O2 Del Method O2 Flow Rate 01/10/23 07:25 Nasal Cannula 2 01/10/23 07:19 Room Air, Nasal Cannula 2 01/09/23 22:35 Room Air 01/09/23 22:30 Room Air 01/09/23 22:09 Room Air 01/09/23 22:00 01/09/23 21:00 Laboratory Results Short CBC 01/10/23 Range/Units 05:50 WBC 11.44 H (4.8-10.8) K/ul Hgb 12.9 (12.0-16.0) g/dl Hct 40.5 (37.0-47.0) % Plt Count 265 (130-400) K/uL BMP 01/10/23 05:50 Sodium 143 Potassium 3.4 L Chloride 108 H Carbon Dioxide 25 BUN 12 Creatinine 0.76 Glucose 116 H Calcium 9.0 Liver Function 01/10/23 Range/Units 05:50 Total Bilirubin 0.9 (0.2-1.0) mg/dl AST 12 L (13-39) U/L ALT 7 (7-52) U/L Alkaline Phosphatase 103 (34-104) U/L Albumin 3.4 (3.4-5.0) gm/dl Medications Administered Home Medications Medication Instructions Recorded Confirmed Last Taken acetaminophen 500 mg tablet 500 mg PO Q4H PRN Pain 12/03/18 01/09/23 04/06/19 19:00 1000 mg metoprolol succinate 50 mg 50 mg PO QAM 12/03/18 01/09/23 01/08/23 tablet,extended release 24 hr cholecalciferol (vitamin D3) 50 50 mcg PO DAILY 11/11/19 01/09/23 01/08/23 mcg (2,000 unit) tablet (Vitamin D3) ursodiol 300 mg capsule 300 mg PO BID 11/11/19 01/09/23 01/08/23 ascorbic acid (vitamin C) 500 mg 500 mg PO DAILY 09/26/20 01/09/23 01/08/23 tablet (Vitamin C) levothyroxine 125 mcg capsule 125 mcg PO DAILY #30 caps 09/29/20 01/09/23 01/08/23 gabapentin 100 mg capsule 100 mg PO HS Pain 02/13/21 01/09/23 01/07/23 potassium chloride 10 mEq 10 meq PO QAM 02/13/21 01/09/23 01/08/23 capsule,extended release ropinirole 1 mg tablet 1 mg PO QPM RESTLESS LEGS 02/13/21 01/09/23 01/08/23 apixaban 2.5 mg tablet (Eliquis) 2.5 mg PO BID #180 tabs 12/25/21 01/09/23 01/08/23 08:00 fluticasone fur. 100 mcg-umeclid 1 inh inhalation DAILY 01/18/22 01/09/23 01/08/23 62.5 mcg-vilant 25 mcg inhalat.powder (Trelegy Ellipta) albuterol sulfate 90 mcg/actuation 2 puff inhalation QID PRN 02/10/22 01/09/23 Unknown aerosol inhaler Shortness Of Breath Or Wheezing furosemide 40 mg tablet 40 mg PO DAILY 02/10/22 01/09/23 01/08/23 pantoprazole 20 mg tablet,delayed 20 mg PO QAM 12/18/22 01/09/23 01/08/23 release calcium carbonate 200 mg calcium 200 mg PO BID 01/09/23 01/09/23 01/08/23 08:00 (500 mg) chewable tablet (Tums) vit C 250 mg-vit E 90 mg-zinc 40 1 tab PO BID 01/09/23 01/09/23 01/08/23 mg-copper 1 [id number]-mqneap capsule (PreserVision AREDS-2) Active Medications Generic Name Dose Route Start Last Admin Trade Name Freq PRN Reason Stop Dose Admin Apixaban 2.5 mg 01/09/23 09:00 01/10/23 08:57 Apixaban 2.5 Mg Tab PO 02/08/23 08:59 2.5 mg BID JENNIFER Administration Calcium Carbonate 500 mg 01/10/23 01:36 01/10/23 07:33 Calcium Carbonate 500 Mg Chewable Tab PO 02/09/23 01:35 500 mg QID PRN Administration Heartburn Doxycycline Hyclate 100 mg 01/09/23 21:00 01/10/23 08:57 Doxycycline Hyclate 100 Mg Cap PO 01/19/23 20:59 100 mg BID JENNIFER Administration Fluticasone Furoate 1 puffs 01/09/23 09:00 01/10/23 08:57 Fluticasone Furoate 100mcg 14 Puffs/Inhaler INH 02/08/23 08:59 1 puffs DAILY JENNIFER Administration Protocol Gabapentin 100 mg 01/09/23 21:00 01/09/23 22:14 Gabapentin 100 Mg Cap PO 02/08/23 20:59 100 mg HS JENNIFER Administration Ampicillin Sodium/Sulbactam 100 mls @ 100 mls/hr 01/09/23 10:00 01/10/23 11:14 Sodium 3,000 mg/ Sodium IV 01/19/23 09:59 Infused Chloride Q6H JENNIFER Infusion Levothyroxine Sodium 125 mcg 01/09/23 06:30 01/10/23 05:34 Levothyroxine Sodium 125 Mcg Tablet PO 02/08/23 06:29 125 mcg DAILYBB JENNIFER Administration Metoprolol Succinate 50 mg 01/09/23 09:00 01/10/23 08:57 Metoprolol Succ 50mg Ext Rel Tab PO 02/08/23 08:59 50 mg QAM JENNIFER Administration Multivitamins/Minerals 1 tab 01/09/23 09:00 01/10/23 08:57 Cerovite Adv Formula Tab PO 02/08/23 08:59 1 tab BID JENNIFER Administration Ropinirole HCl 1 mg 01/09/23 21:00 01/09/23 22:13 Ropinirole Hcl 1 Mg Tablet PO 02/08/23 20:59 1 mg QPM JENNIFER Administration Umeclidinium/Vilanterol 1 puffs 01/09/23 09:00 01/10/23 08:57 Umeclidinium/Vilanterol 62.5/25mcg 7 Puffs/Inhaler INH 02/08/23 08:59 1 puffs DAILY JENNIFER Administration Protocol Ursodiol 300 mg 01/09/23 09:00 01/10/23 08:57 Ursodiol 300 Mg Cap PO 02/08/23 08:59 300 mg BID JENNIFER Administration
[2023-01-10] MEDS: UMECLIDINIUM/VILANTEROL 62.5/25MCG 7 PUFFS/INHALER INH SCH (08:57)
[2023-01-10] MEDS: APIXABAN 2.5 MG TAB PO SCH ×2 (08:57→20:16)
[2023-01-10] MEDS: CEROVITE ADV FORMULA TAB PO SCH ×2 (08:57→20:17)
[2023-01-10] MEDS: FLUTICASONE FUROATE 100MCG 14 PUFFS/INHALER INH SCH (08:57)
[2023-01-10] MEDS: DOXYCYCLINE HYCLATE 100 MG CAP PO SCH ×2 (08:57→20:16)
[2023-01-10] MEDS: ursodioL 300 MG CAP PO SCH ×2 (08:57→20:17)
[2023-01-10] MEDS: METOPROLOL SUCC 50MG EXT REL TAB PO SCH (08:57)
[2023-01-10] MEDS ORDERED: FUROSEMIDE 40 MG/4 ML VIAL IV ONE (09:31)
--- NOTE | 2023-01-10 10:17 | XRay Report ---
XR chest 1V portable CLINICAL HISTORY: SOB TECHNIQUE: Single frontal radiograph of the chest was obtained. Comparison: Comparison is made to chest radiograph 01/08/2023 FINDINGS: An implanted pacemaker is seen. Cardiomegaly is noted. The aortic arch is calcified. There is promine nce and cephalization of the vasculature with Eren B lines seen. Small right pleural effusion. IMPRESSION: Cardiomegaly and moderate pulmonary edema. Small right pleural effusion. ACT 112: Negative or not required by law. Electronically signed by: Jeffery Campbell M.D. 01/10/2023 10:16 AM
[2023-01-10] MEDS ORDERED: CALCIUM CARBONATE 500 MG CHEWABLE TAB PO PRN (12:25)
[2023-01-10] MEDS: PANTOprazole 40 MG TAB PO SCH (13:15)
[2023-01-10] MEDS: ALBUTEROL HFA 8 GM INHALER INH SCH ×3 (16:01→19:55)
[2023-01-10] MEDS: rOPINIRole HCL 1 MG TABLET PO SCH (20:16)
[2023-01-10] MEDS: GABAPENTIN 100 MG CAP PO SCH (20:18)
[2023-01-11] MEDS: ALBUTEROL HFA 8 GM INHALER INH SCH ×5 (00:13→12:18)
[2023-01-11] MEDS: AMPICILLIN/SULBACTAM SOD 3,000 MG in SODIUM CHLOR 0.9% MINI-B 100 ML IV SCH ×4 (04:48→22:12)
[2023-01-11] MEDS: LEVOTHYROXINE SODIUM 125 MCG TABLET PO SCH (05:51)
[2023-01-11 07:00] LABS: Hematocrit (blood only) 36.8 % (37.0-47.0); Hemoglobin 11.8 g/dl (12.0-16.0); Mean Corpuscular Hemoglobin 31.7 pg (25.0-34.0); Mean Corpuscular Hgb Conc 32.1 g/dL (32.0-36.0); Mean Corpuscular Volume 98.9 fL (80.0-100.0); Mean Platelet Volume 9.7 fL (9.4-12.4); Platelet Count 248 K/uL (130-400); RDW Coefficient of Variation 13.4 % (11.5-14.5); RDW Standard Deviation 48.7 fL (36.4-46.3); Red Blood Count 3.72 M/uL (4.20-5.40); White Blood Count 9.48 K/ul (4.8-10.8)
[2023-01-11 07:16] LABS: BUN Creatinine Ratio 15.9 (10-20); Creatinine Clr Calc Pharmacy 53.2 ml/min; Est GFR (African American) 76.2 ml/min; Est GFR (Non-African American) 65.7 ml/min; Magnesium 1.9 mg/dl (1.7-2.4); Phosphorus 3.2 mg/dl (2.5-4.9); Potassium 3.5 mmol/L (3.5-5.1)
[2023-01-11] MEDS ORDERED: POTASSIUM CHLORIDE PWD 20 MEQ PACK PO STA (07:31)
[2023-01-11] MEDS ORDERED: FUROSEMIDE 40 MG/4 ML VIAL IV ONE (07:31)
[2023-01-11] MEDS ORDERED: POTASSIUM CHLORIDE CRTAB 20 MEQ TABCR PO STA (07:40)
[2023-01-11] MEDS: APIXABAN 2.5 MG TAB PO SCH ×2 (08:54→20:25)
[2023-01-11] MEDS: DOXYCYCLINE HYCLATE 100 MG CAP PO SCH ×2 (08:54→20:26)
[2023-01-11] MEDS: PANTOprazole 40 MG TAB PO SCH (08:54)
[2023-01-11] MEDS: UMECLIDINIUM/VILANTEROL 62.5/25MCG 7 PUFFS/INHALER INH SCH (08:54)
[2023-01-11] MEDS: CEROVITE ADV FORMULA TAB PO SCH ×2 (08:54→20:25)
[2023-01-11] MEDS: ursodioL 300 MG CAP PO SCH ×2 (08:54→20:26)
[2023-01-11] MEDS: FLUTICASONE FUROATE 100MCG 14 PUFFS/INHALER INH SCH (08:55)
[2023-01-11] MEDS ORDERED: FUROSEMIDE 40 MG TAB PO SCH (09:00)
--- NOTE | 2023-01-11 10:07 | XCELERA ---
[id number] [email or web address]\[id number]
[2023-01-11] MEDS: METOPROLOL SUCC 50MG EXT REL TAB PO SCH (10:08)
--- NOTE | 2023-01-11 11:14 | Cardiology Consultation ---
Date of Consultation January 11, 2023 Assessment & Plan (1) Acute respiratory failure with hypoxia: -suspect iatrogenic CHF from aggressive intravenous hydration. -hydration currently on hold. -agree with intravenous diuretics until she no longer requires supplemental oxygen. -fortunately, echocardiogram notes normal left ventricular systolic function. (2) Paroxysmal atrial fibrillation: -continue rate control and long-term anticoagulation. (3) Tachy-juli syndrome: -DDD pacemaker placed August 2004. -generator change January 2013, February 2021. History of Present Illness Attending Physician: Angelita Colon MD History of Present Illness Mrs Zhang is an 82-year-old female admitted on January 09 with sepsis from a presumed postoperative endometritis. The patient developed an episode of hypervolemia, therefore, this consultation was ordered. Of note, the patient is well known to me from the outpatient setting. The patient underwent a D&C on December 28 for a thickened endometrial wall. The patient did well postoperatively until approximately 2 days prior to presentation when she began to note fever and significant fatigue. The patient was given intravenous hydration and eventually developed shortness of breath while at rest. Chest x-ray noted significant interstitial edema. The patient was treated with intravenous Lasix and she has improved dramatically. She does carry history of paroxysmal atrial fibrillation and a tachycardia/bradycardia syndrome. She had a DDD pacemaker placed in August 2004 with generator change in January 2013 in February 2021. She is tolerating rate control long-term anticoagulation for her paroxysmal atrial dysrhythmia without difficulty. Currently, patient is resting comfortably in bed without complaints. Past medical and surgical history 1. Hypertension 2. Mild LVH 3. Hypercholesterolemia 4. Paroxysmal atrial fibrillation 5. Tachycardia/bradycardia syndrome 6. DDD pacemaker-see above 7. Chronic renal failure 8. COPD 9. Obstructive sleep apnea 10. Hypothyroidism 11. GERD 12. Pulmonary nodule 13. Macular degeneration 14. Restless leg syndrome 15. Vitamin-D deficiency 16. D&C 17. Thyroidectomy 18. Cholecystectomy Social history , lives alone Former smoker No alcohol Family history Noncontributory Review of systems A 10 point review systems undertaken and negative except that described above. Allergies Allergy/AdvReac Type Severity Reaction Status Date / Time No Known Allergies Allergy Verified 01/09/23 00:02 Home Medications Medication Instructions Recorded Confirmed Type acetaminophen 500 mg tablet 500 mg PO Q4H PRN Pain 12/03/18 01/09/23 History metoprolol succinate 50 mg 50 mg PO QAM 12/03/18 01/09/23 History tablet,extended release 24 hr cholecalciferol (vitamin D3) 50 50 mcg PO DAILY 11/11/19 01/09/23 History mcg (2,000 unit) tablet (Vitamin D3) ursodiol 300 mg capsule 300 mg PO BID 11/11/19 01/09/23 History ascorbic acid (vitamin C) 500 mg 500 mg PO DAILY 09/26/20 01/09/23 History tablet (Vitamin C) levothyroxine 125 mcg capsule 125 mcg PO DAILY #30 caps 09/29/20 01/09/23 Rx gabapentin 100 mg capsule 100 mg PO HS Pain 02/13/21 01/09/23 History potassium chloride 10 mEq 10 meq PO QAM 02/13/21 01/09/23 History capsule,extended release ropinirole 1 mg tablet 1 mg PO QPM RESTLESS LEGS 02/13/21 01/09/23 History apixaban 2.5 mg tablet (Eliquis) 2.5 mg PO BID #180 tabs 12/25/21 01/09/23 Rx fluticasone fur. 100 mcg-umeclid 1 inh inhalation DAILY 01/18/22 01/09/23 History 62.5 mcg-vilant 25 mcg inhalat.powder (Trelegy Ellipta) albuterol sulfate 90 mcg/actuation 2 puff inhalation QID PRN 02/10/22 01/09/23 History aerosol inhaler Shortness Of Breath Or Wheezing furosemide 40 mg tablet 40 mg PO DAILY 02/10/22 01/09/23 History pantoprazole 20 mg tablet,delayed 20 mg PO QAM 12/18/22 01/09/23 History release calcium carbonate 200 mg calcium 200 mg PO BID 01/09/23 01/09/23 History (500 mg) chewable tablet (Tums) vit C 250 mg-vit E 90 mg-zinc 40 1 tab PO BID 01/09/23 01/09/23 History mg-copper 1 xa-eszwrk-qugrmf capsule (PreserVision AREDS-2) Patient History Medical History History of blood transfusion Macular degeneration Tachy-juli syndrome Solitary lung nodule Pulmonary emphysema CKD (chronic kidney disease) stage 3, GFR 30-59 ml/min Obstructive sleep apnea COPD (chronic obstructive pulmonary disease) GERD (gastroesophageal reflux disease) Hypothyroidism associated with surgical procedure Atrial fibrillation Pacemaker Hypertension Restless leg syndrome Surgical History History of esophagogastroduodenoscopy (EGD) Hx of colonoscopy H/O dilation and curettage H/O eye surgery History of ERCP S/P thyroidectomy S/P cholecystectomy Family History Other Cancer Social History Smoking Status: Former smoker Tobacco Type: Cigarettes Second Hand Exposure: Yes (in the past); Do You Dip or Chew Tobacco: No; Hx Alcohol Use: No Hx Substance Use: No Preferred Language: Korean Communication Ability: Effective Support Architect Required: No Beliefs That Will Affect Care: None marital status: Current Living Situation: Alone Current Living Situation Comment: senior apartment building current occupational status: retired Feels Safe at Home: Yes Safety Concerns: Feels Safe At This Time Assistive Devices: Walker Physical Exam Physical Exam: In general this is a well-developed well-nourished white female in no acute distress. HEENT exam is significant for bilateral proptosis. Neck is supple with full carotid upstrokes. There are no carotid bruits. No jugular venous distension. There is no thyromegaly. Cardiovascular exam reveals a regular rhythm with a normal S1 and S2. Heart sounds are distant. No obvious murmurs. Lungs note distant breath sounds but no rales, rhonchi, wheezes. Chest reveals a palpable pacemaker in the left subclavicular region. Abdomen is soft and nontender without bruits. Extremities reveal intact radial artery pulses bilaterally. Trace pretibial edema is noted. Results & Data Vital Signs (Past 12 Hours) Vital Signs Temp Pulse Resp BP Pulse Ox O2 Del Method O2 Flow Rate 01/11/23 10:08 71 132/76 01/11/23 07:54 36.7 C 73 18 117/69 93 Nasal Cannula 1 01/11/23 07:38 Nasal Cannula 1 01/11/23 07:27 70 18 98 Nasal Cannula 2 01/11/23 03:05 80 18 97 Nasal Cannula 2 01/11/23 00:19 82 18 91 Nasal Cannula 2 Laboratory Results CBC notes hemoglobin of 11.8 hematocrit 36.8, white count 9.5, a platelet count [id number]. Electrolytes note a sodium of 142, potassium 3.5, chloride 107, bicarb 27, BUN 13, creatinine 0.82, glucose of 107. BNP is elevated 775. Diagnostic Findings Echocardiogram notes normal left ventricular systolic function with ejection fraction 55-60%. There is borderline LVH and mild mitral regurgitation. Compared with the study performed in December 2018, no significant change. EKG notes ventricular pacing. Chest x-ray notes cardiomegaly, left-sided pacemaker, and diffuse interstitial edema. PG Care Time/CCT Total # of Minutes Spent Total Time Spent with Patient: Total time spent is greater than 50% in coordination of care (as documented) at patient's floor/unit and/or counseling patient: Coding Level of Care Code 44073 INT INP/OBS CARE 3/75MIN Diagnoses Acute respiratory failure with hypoxia J96.01 Paroxysmal atrial fibrillation I48.0 Tachy-juli syndrome I49.5
[2023-01-11] MEDS ORDERED: ALBUTEROL HFA 8 GM INHALER INH PRN (12:15)
[2023-01-11] MEDS: FUROSEMIDE 40 MG/4 ML VIAL IV SCH (14:55)
--- NOTE | 2023-01-11 17:52 | Hospitalist Progress Note ---
Date of Service January 11, 2023 Assessment & Plan (1) Sepsis: Plan Mrs. Zhang is an 82 year old woman with history of hypertension, hypercholesterolemia, paroxysmal atrial fibrillation (no anticoagulation, spontaneous retroperitoneal bleed in April 2016; tolerating low-dose apixaban, December 2021), pacemaker (tachycardia/bradycardia syndrome), as well as recent D& C on 12/28 for endometrial thickening who is admitted for sepsis thought to be secondary to post-operative endometritis. Patient on broad spectrum antibiotics at this time with NGTD on current cultures. Afebrile for over 24 hours. Course complicated by shortness of breath/ARGUELLO with crackles on exam. CXR c/w heartfailure exacerbation. No recent ECHO on file and patient with rescent resuscitation 2/2 sepsis. s/p IV lasix 40mg. ECHO without signs of HF, appears iatrogenic iso aggressive IVF for sepsis. Appreciate Cardiology input. #sepsis thought the be secondary to endometritis. #Endometrial thickening s/p D*C OBGYN following IV Unasyn 3g Q6 with PO doxycycline 100mg BID. In 24-48h, if improvement in fever, plan to transition to PO doxycycline 100mg BID + PO metronidazole 500mg BID for 14-day course. 01/23 EOT #Acute hypoxic respiratory failure #Cardiomegaly with pulm edema -concern for volume overload, recent aggressive IVF -s/p IV lasix 40mg -ECHO owith normal systolic function -dailys weights, strict I/Os -Cardiology consult for optimization:continue IV diuretics until off of O2 #Hypokalemia replace lytes prn, K >4 m>2 p>3 #COPD -Continue Trelegy -Continue albuterol prn #Hypertension #tachybrady syndrome s/p pacemaker #paroxysmal atrial fibrillation -Continue eliquis -Continue metoprolol xl 50mg #RLS -Continue ropinrole -Continue gabapentin #postsurgical hypothyroidism -Continue synthroid 175mcg #Prior choledocholithiasis s/p selina and ERCP 07/2016 , s/p ERCP with stent removal [id number] 12/2018 s/p ERCP with partial removal and stent placement--s/p ERCP at [facility] 02/09/19 with remainder of stones removed. s/p ERCP 04/08/19 with pus and sludge--s/p ERCP with stone removal, s/p ERCP at [place] 11/2019 duodenal diverticulum and wide open sphincterotomy -Continue urosidol 300mg BID #Prediabetes -SSI #Erosive esophagitis -Continue protonix 40mg daily -Tums prn #cirrhosis on u/s 12/2018, CT 03/2019 -Follow with GI, stable DVT eliquis DISPO contingent of fluid status, PT/OT Admission and Anticipated Discharge Date Admission Date: January 09, 2023 Subjective Reports feeling much improved but still with O2 requirement Review of Systems Review of Systems: All systems reviewed & are unremarkable except as noted in Subjective Physical Exam Constitutional: WD/WN, vitals as above Respiratory: crackles, less so than prior examination Cardiovascular: RRR, no murmur, no edema Results & Data Results & Data Vital Signs (Past 12 Hours) Vital Signs Temp Pulse Resp BP Pulse Ox Pulse Ox Pulse Ox 01/11/23 14:52 36.7 C 84 20 134/73 92 01/11/23 11:49 95 87 L 01/11/23 10:08 71 132/76 01/11/23 07:54 36.7 C 73 18 117/69 93 01/11/23 07:38 01/11/23 07:27 70 18 98 O2 Del Method O2 Flow Rate O2 Flow Rate O2 Flow Rate 01/11/23 14:52 Nasal Cannula 1 01/11/23 11:49 1 1 01/11/23 10:08 01/11/23 07:54 Nasal Cannula 1 01/11/23 07:38 Nasal Cannula 1 01/11/23 07:27 Nasal Cannula 2 Laboratory Results Short CBC 01/11/23 Range/Units 06:35 WBC 9.48 (4.8-10.8) K/ul Hgb 11.8 L (12.0-16.0) g/dl Hct 36.8 L (37.0-47.0) % Plt Count 248 (130-400) K/uL BMP 01/11/23 06:35 Sodium 142 Potassium 3.5 Chloride 107 Carbon Dioxide 27 BUN 13 Creatinine 0.82 Glucose 107 H Calcium 9.0 Medications Administered Home Medications Medication Instructions Recorded Confirmed Last Taken acetaminophen 500 mg tablet 500 mg PO Q4H PRN Pain 12/03/18 01/09/23 04/06/19 19:00 1000 mg metoprolol succinate 50 mg 50 mg PO QAM 12/03/18 01/09/23 01/08/23 tablet,extended release 24 hr cholecalciferol (vitamin D3) 50 50 mcg PO DAILY 11/11/19 01/09/23 01/08/23 mcg (2,000 unit) tablet (Vitamin D3) ursodiol 300 mg capsule 300 mg PO BID 11/11/19 01/09/23 01/08/23 ascorbic acid (vitamin C) 500 mg 500 mg PO DAILY 09/26/20 01/09/23 01/08/23 tablet (Vitamin C) levothyroxine 125 mcg capsule 125 mcg PO DAILY #30 caps 09/29/20 01/09/23 01/08/23 gabapentin 100 mg capsule 100 mg PO HS Pain 02/13/21 01/09/23 01/07/23 potassium chloride 10 mEq 10 meq PO QAM 02/13/21 01/09/23 01/08/23 capsule,extended release ropinirole 1 mg tablet 1 mg PO QPM RESTLESS LEGS 02/13/21 01/09/23 01/08/23 apixaban 2.5 mg tablet (Eliquis) 2.5 mg PO BID #180 tabs 12/25/21 01/09/23 01/08/23 08:00 fluticasone fur. 100 mcg-umeclid 1 inh inhalation DAILY 01/18/22 01/09/23 01/08/23 62.5 mcg-vilant 25 mcg inhalat.powder (Trelegy Ellipta) albuterol sulfate 90 mcg/actuation 2 puff inhalation QID PRN 02/10/22 01/09/23 Unknown aerosol inhaler Shortness Of Breath Or Wheezing furosemide 40 mg tablet 40 mg PO DAILY 02/10/22 01/09/23 01/08/23 pantoprazole 20 mg tablet,delayed 20 mg PO QAM 12/18/22 01/09/23 01/08/23 release calcium carbonate 200 mg calcium 200 mg PO BID 01/09/23 01/09/23 01/08/23 08:00 (500 mg) chewable tablet (Tums) vit C 250 mg-vit E 90 mg-zinc 40 1 tab PO BID 01/09/23 01/09/23 01/08/23 mg-copper 1 [id number] capsule (PreserVision AREDS-2) Active Medications Generic Name Dose Route Start Last Admin Trade Name Freq PRN Reason Stop Dose Admin Apixaban 2.5 mg 01/09/23 09:00 01/11/23 08:54 Apixaban 2.5 Mg Tab PO 02/08/23 08:59 2.5 mg BID JENNIFER Administration Calcium Carbonate 500 mg 01/10/23 01:36 01/10/23 07:33 Calcium Carbonate 500 Mg Chewable Tab PO 02/09/23 01:35 500 mg QID PRN Administration Heartburn Doxycycline Hyclate 100 mg 01/09/23 21:00 01/11/23 08:54 Doxycycline Hyclate 100 Mg Cap PO 01/19/23 20:59 100 mg BID JENNIFER Administration Fluticasone Furoate 1 puffs 01/09/23 09:00 01/11/23 08:55 Fluticasone Furoate 100mcg 14 Puffs/Inhaler INH 02/08/23 08:59 1 puffs DAILY JENNIFER Administration Protocol Furosemide 40 mg 01/11/23 14:00 01/11/23 14:55 Furosemide 40 Mg/4 Ml Vial IV 02/10/23 13:59 40 mg [id number] JENNIFER Administration Gabapentin 100 mg 01/09/23 21:00 01/10/23 20:18 Gabapentin 100 Mg Cap PO 02/08/23 20:59 100 mg HS JENNIFER Administration Ampicillin Sodium/Sulbactam 100 mls @ 100 mls/hr 01/09/23 10:00 01/11/23 16:35 Sodium 3,000 mg/ Sodium IV 01/19/23 09:59 100 mls/hr Chloride Q6H JENNIFER Administration Levothyroxine Sodium 125 mcg 01/09/23 06:30 01/11/23 05:51 Levothyroxine Sodium 125 Mcg Tablet PO 02/08/23 06:29 125 mcg DAILYBB JENNIFER Administration Metoprolol Succinate 50 mg 01/09/23 09:00 01/11/23 10:08 Metoprolol Succ 50mg Ext Rel Tab PO 02/08/23 08:59 50 mg QAM JENNIFER Administration Multivitamins/Minerals 1 tab 01/09/23 09:00 01/11/23 08:54 Cerovite Adv Formula Tab PO 02/08/23 08:59 1 tab BID JENNIFER Administration Pantoprazole Sodium 40 mg 01/10/23 12:30 01/11/23 08:54 Pantoprazole 40 Mg Tab PO 02/09/23 12:29 40 mg DAILY JENNIFER Administration Ropinirole HCl 1 mg 01/09/23 21:00 01/10/23 20:16 Ropinirole Hcl 1 Mg Tablet PO 02/08/23 20:59 1 mg QPM JENNIFER Administration Umeclidinium/Vilanterol 1 puffs 01/09/23 09:00 01/11/23 08:54 Umeclidinium/Vilanterol 62.5/25mcg 7 Puffs/Inhaler INH 02/08/23 08:59 1 puffs DAILY JENNIFER Administration Protocol Ursodiol 300 mg 01/09/23 09:00 01/11/23 08:54 Ursodiol 300 Mg Cap PO 02/08/23 08:59 300 mg BID JENNIFER Administration
[2023-01-11] MEDS: GABAPENTIN 100 MG CAP PO SCH (20:25)
[2023-01-11] MEDS: rOPINIRole HCL 1 MG TABLET PO SCH (20:26)
[2023-01-12] MEDS: AMPICILLIN/SULBACTAM SOD 3,000 MG in SODIUM CHLOR 0.9% MINI-B 100 ML IV SCH (05:32)
[2023-01-12] MEDS: LEVOTHYROXINE SODIUM 125 MCG TABLET PO SCH (05:34)
[2023-01-12] MEDS: FUROSEMIDE 40 MG/4 ML VIAL IV SCH ×2 (06:24→14:17)
[2023-01-12] MEDS: UMECLIDINIUM/VILANTEROL 62.5/25MCG 7 PUFFS/INHALER INH SCH (08:05)
[2023-01-12] MEDS: FLUTICASONE FUROATE 100MCG 14 PUFFS/INHALER INH SCH (08:05)
[2023-01-12] MEDS: DOXYCYCLINE HYCLATE 100 MG CAP PO SCH ×2 (08:06→20:08)
[2023-01-12] MEDS: ursodioL 300 MG CAP PO SCH ×2 (08:06→20:07)
[2023-01-12] MEDS: CEROVITE ADV FORMULA TAB PO SCH (08:06)
[2023-01-12] MEDS: APIXABAN 2.5 MG TAB PO SCH ×2 (08:06→20:08)
[2023-01-12] MEDS: METOPROLOL SUCC 50MG EXT REL TAB PO SCH (08:07)
[2023-01-12] MEDS: PANTOprazole 40 MG TAB PO SCH (08:07)
[2023-01-12 09:44] LABS: Hematocrit (blood only) 38.4 % (37.0-47.0); Hemoglobin 12.6 g/dl (12.0-16.0); Mean Corpuscular Hemoglobin 31.6 pg (25.0-34.0); Mean Corpuscular Hgb Conc 32.8 g/dL (32.0-36.0); Mean Corpuscular Volume 96.2 fL (80.0-100.0); Mean Platelet Volume 9.5 fL (9.4-12.4); Platelet Count 274 K/uL (130-400); RDW Coefficient of Variation 13.3 % (11.5-14.5); RDW Standard Deviation 47.3 fL (36.4-46.3); Red Blood Count 3.99 M/uL (4.20-5.40); White Blood Count 9.05 K/ul (4.8-10.8)
[2023-01-12 09:59] LABS: BUN Creatinine Ratio 13.8 (10-20); Calcium 9.3 mg/dl (8.6-10.3); Creatinine Clr Calc Pharmacy 48.8 ml/min; Est GFR (African American) 70.9 ml/min; Est GFR (Non-African American) 61.2 ml/min; Magnesium 1.9 mg/dl (1.7-2.4); Phosphorus 2.4 mg/dl (2.5-4.9); Potassium 3.5 mmol/L (3.5-5.1)
[2023-01-12] MEDS: metroNIDAZOLE 500 MG TAB PO SCH ×2 (10:21→20:09)
--- NOTE | 2023-01-12 15:31 | Hospitalist Progress Note ---
Date of Service January 12, 2023 Assessment & Plan (1) Sepsis: Plan Mrs. Zhang is an 82 year old woman with history of hypertension, hypercholesterolemia, paroxysmal atrial fibrillation (no anticoagulation, spontaneous retroperitoneal bleed in April 2016; tolerating low-dose apixaban, December 2021), pacemaker (tachycardia/bradycardia syndrome), as well as recent D& C on 12/28 for endometrial thickening who is admitted for sepsis thought to be secondary to post-operative endometritis. Patient on broad spectrum antibiotics at this time with NGTD on current cultures. Afebrile for over 24 hours. Course complicated by shortness of breath/ARGUELLO with crackles on exam. CXR c/w heartfailure exacerbation. No recent ECHO on file and patient with rescent resuscitation 2/2 sepsis. s/p IV lasix 40mg. ECHO without signs of HF, appears iatrogenic iso aggressive IVF for sepsis. Continue IV lasix until able to ween off of O2 #sepsis thought the be secondary to endometritis *improved #Endometrial thickening s/p D*C OBGYN following Afebrile for >48 hours, transitioned PO doxycycline 100mg BID + PO metronidazole 500mg BID for 14-day course. 01/23 EOT #Acute hypoxic respiratory failure #Cardiomegaly with pulm edema -concern for volume overload, recent aggressive IVF -s/p IV lasix 40mg -ECHO owith normal systolic function -dailys weights, strict I/Os -Cardiology consult for optimization:continue IV diuretics until off of O2 (likely 1 more day) -IS #Hypokalemia replace lytes prn, K >4 m>2 p>3 #COPD -Continue Trelegy -Continue albuterol prn #Hypertension #tachybrady syndrome s/p pacemaker #paroxysmal atrial fibrillation -Continue eliquis -Continue metoprolol xl 50mg #RLS -Continue ropinrole -Continue gabapentin #postsurgical hypothyroidism -Continue synthroid 175mcg #Prior choledocholithiasis s/p selina and ERCP 07/2016 , s/p ERCP with stent rem oval [id number] 12/2018 s/p ERCP with partial removal and stent placement--s/p ERCP at [facility] [place] 02/09/19 with remainder of stones removed. s/p ERCP 04/08/19 with pus and sludge--s/p ERCP with stone removal, s/p ERCP at [place] 11/2019 duodenal diverticulum and wide open sphincterotomy -Continue urosidol 300mg BID #Prediabetes -SSI #Erosive esophagitis -Continue protonix 40mg daily -Tums prn #cirrhosis on u/s 12/2018, CT 03/2019 -Follow with GI, stable DVT eliquis DISPO contingent of fluid status, PT/OT Admission and Anticipated Discharge Date Admission Date: January 09, 2023 Subjective Reports notable improvement in respiratory status. Denies any cough, sob Evaluated by PT--no needs Review of Systems Review of Systems: All systems reviewed & are unremarkable except as noted in Subjective Physical Exam Constitutional: WD/WN, vitals as above Respiratory: trace bibasilar crackles, notable improvement Cardiovascular: RRR, no murmur, no edema Results & Data Results & Data Vital Signs (Past 12 Hours) Vital Signs Temp Pulse Resp BP Pulse Ox O2 Del Method O2 Flow Rate 01/12/23 15:11 36.5 C 80 18 111/67 92 Nasal Cannula 2 01/12/23 11:38 93 01/12/23 10:23 Nasal Cannula 2 01/12/23 06:54 36.6 C 72 18 145/83 H 92 Nasal Cannula 2 Laboratory Results Short CBC 01/12/23 Range/Units 09:23 WBC 9.05 (4.8-10.8) K/ul Hgb 12.6 (12.0-16.0) g/dl Hct 38.4 (37.0-47.0) % Plt Count 274 (130-400) K/uL BMP 01/12/23 09:23 Sodium 142 Potassium 3.5 Chloride 102 Carbon Dioxide 32 BUN 12 Creatinine 0.87 Glucose 115 H Calcium 9.3 Medications Administered Home Medications Medication Instructions Recorded Confirmed Last Taken acetaminophen 500 mg tablet 500 mg PO Q4H PRN Pain 12/03/18 01/09/23 04/06/19 19:00 1000 mg metoprolol succinate 50 mg 50 mg PO QAM 12/03/18 01/09/23 01/08/23 tablet,extended release 24 hr cholecalciferol (vitamin D3) 50 50 mcg PO DAILY 11/11/19 01/09/23 01/08/23 mcg (2,000 unit) tablet (Vitamin D3) ursodiol 300 mg capsule 300 mg PO BID 11/11/19 01/09/23 01/08/23 ascorbic acid (vitamin C) 500 mg 500 mg PO DAILY 09/26/20 01/09/23 01/08/23 tablet (Vitamin C) levothyroxine 125 mcg capsule 125 mcg PO DAILY #30 caps 09/29/20 01/09/23 01/08/23 gabapentin 100 mg capsule 100 mg PO HS Pain 02/13/21 01/09/23 01/07/23 potassium chloride 10 mEq 10 meq PO QAM 02/13/21 01/09/23 01/08/23 capsule,extended release ropinirole 1 mg tablet 1 mg PO QPM RESTLESS LEGS 02/13/21 01/09/23 01/08/23 apixaban 2.5 mg tablet (Eliquis) 2.5 mg PO BID #180 tabs 12/25/21 01/09/23 01/08/23 08:00 fluticasone fur. 100 mcg-umeclid 1 inh inhalation DAILY 01/18/22 01/09/23 01/08/23 62.5 mcg-vilant 25 mcg inhalat.powder (Trelegy Ellipta) albuterol sulfate 90 mcg/actuation 2 puff inhalation QID PRN 02/10/22 01/09/23 Unknown aerosol inhaler Shortness Of Breath Or Wheezing furosemide 40 mg tablet 40 mg PO DAILY 02/10/22 01/09/23 01/08/23 pantoprazole 20 mg tablet,delayed 20 mg PO QAM 12/18/22 01/09/23 01/08/23 release calcium carbonate 200 mg calcium 200 mg PO BID 01/09/23 01/09/23 01/08/23 08:00 (500 mg) chewable tablet (Tums) vit C 250 mg-vit E 90 mg-zinc 40 1 tab PO BID 01/09/23 01/09/23 01/08/23 mg-copper 1 [id number] capsule (PreserVision AREDS-2) Active Medications Generic Name Dose Route Start Last Admin Trade Name Freq PRN Reason Stop Dose Admin Albuterol 2 puffs 01/11/23 12:15 01/11/23 23:29 Albuterol Hfa 8 Gm Inhaler INH 02/09/23 09:44 2 puffs Q4R PRN Administration Wheezing Apixaban 2.5 mg 01/09/23 09:00 01/12/23 08:06 Apixaban 2.5 Mg Tab PO 02/08/23 08:59 2.5 mg BID JENNIFER Administration Calcium Carbonate 500 mg 01/10/23 01:36 01/10/23 07:33 Calcium Carbonate 500 Mg Chewable Tab PO 02/09/23 01:35 500 mg QID PRN Administration Heartburn Calcium Carbonate 500 mg 01/10/23 12:25 01/11/23 22:12 Calcium Carbonate 500 Mg Chewable Tab PO 02/09/23 12:24 500 mg Q8H PRN Administration Indigestion Doxycycline Hyclate 100 mg 01/09/23 21:00 01/12/23 08:06 Doxycycline Hyclate 100 Mg Cap PO 01/19/23 20:59 100 mg BID JENNIFER Administration Fluticasone Furoate 1 puffs 01/09/23 09:00 01/12/23 08:05 Fluticasone Furoate 100mcg 14 Puffs/Inhaler INH 02/08/23 08:59 1 puffs DAILY JENNIFER Administration Protocol Furosemide 40 mg 01/11/23 14:00 01/12/23 14:17 Furosemide 40 Mg/4 Ml Vial IV 02/10/23 13:59 40 mg [id number] JENNIFER Administration Gabapentin 100 mg 01/09/23 21:00 01/11/23 20:25 Gabapentin 100 Mg Cap PO 02/08/23 20:59 100 mg HS JENNIFER Administration Levothyroxine Sodium 125 mcg 01/09/23 06:30 01/12/23 05:34 Levothyroxine Sodium 125 Mcg Tablet PO 02/08/23 06:29 125 mcg DAILYBB JENNIFER Administration Metoprolol Succinate 50 mg 01/09/23 09:00 01/12/23 08:07 Metoprolol Succ 50mg Ext Rel Tab PO 02/08/23 08:59 50 mg QAM JENNIFER Administration Metronidazole 500 mg 01/12/23 09:00 01/12/23 10:21 Metronidazole 500 Mg Tab PO 01/22/23 08:59 500 mg BID JENNIFER Administration Protocol Miscellaneous 1 each 01/12/23 10:15 01/12/23 11:57 Order Awaiting Action N/A 02/11/23 10:14 Not Given QS JENNIFER Pantoprazole Sodium 40 mg 01/10/23 12:30 01/12/23 08:07 Pantoprazole 40 Mg Tab PO 02/09/23 12:29 40 mg DAILY JENNIFER Administration Ropinirole HCl 1 mg 01/09/23 21:00 01/11/23 20:26 Ropinirole Hcl 1 Mg Tablet PO 02/08/23 20:59 1 mg QPM JENNIFER Administration Umeclidinium/Vilanterol 1 puffs 01/09/23 09:00 01/12/23 08:05 Umeclidinium/Vilanterol 62.5/25mcg 7 Puffs/Inhaler INH 02/08/23 08:59 1 puffs DAILY JENNIFER Administration Protocol Ursodiol 300 mg 01/09/23 09:00 01/12/23 08:06 Ursodiol 300 Mg Cap PO 02/08/23 08:59 300 mg BID JENNIFER Administration
[2023-01-12] MEDS: POT PHOSPHATE MONOBASIC W/ SOD TAB PO SCH ×2 (18:17→20:07)
[2023-01-12] MEDS: GABAPENTIN 100 MG CAP PO SCH (20:08)
[2023-01-12] MEDS: rOPINIRole HCL 1 MG TABLET PO SCH (20:08)
[2023-01-13] MEDS: LEVOTHYROXINE SODIUM 125 MCG TABLET PO SCH (05:58)
[2023-01-13] MEDS: FUROSEMIDE 40 MG/4 ML VIAL IV SCH (05:58)
[2023-01-13] MEDS ORDERED: POTASSIUM CHLORIDE CRTAB 20 MEQ TABCR PO STA (07:44)
[2023-01-13] MEDS: FLUTICASONE FUROATE 100MCG 14 PUFFS/INHALER INH SCH (08:24)
[2023-01-13] MEDS: UMECLIDINIUM/VILANTEROL 62.5/25MCG 7 PUFFS/INHALER INH SCH (08:24)
[2023-01-13] MEDS: metroNIDAZOLE 500 MG TAB PO SCH (08:24)
[2023-01-13] MEDS: DOXYCYCLINE HYCLATE 100 MG CAP PO SCH (08:24)
[2023-01-13] MEDS: APIXABAN 2.5 MG TAB PO SCH (08:25)
[2023-01-13] MEDS: METOPROLOL SUCC 50MG EXT REL TAB PO SCH (08:25)
[2023-01-13] MEDS: POT PHOSPHATE MONOBASIC W/ SOD TAB PO SCH (08:25)
[2023-01-13] MEDS: PANTOprazole 40 MG TAB PO SCH (08:25)
[2023-01-13 08:30] LABS: BUN Creatinine Ratio 16.3 (10-20); Calcium 8.9 mg/dl (8.6-10.3); Creatinine Clr Calc Pharmacy 48.8 ml/min; Est GFR (African American) 71.9 ml/min; Phosphorus 4.1 mg/dl (2.5-4.9); Potassium 3.1 mmol/L (3.5-5.1)
[2023-01-13] MEDS ORDERED: POT PHOSPHATE MONOBASIC W/ SOD TAB PO SCH (09:00)
[2023-01-13] MEDS: ursodioL 300 MG CAP PO SCH (10:59)
--- NOTE | 2023-01-13 15:54 | Discharge Summary ---
Discharge Summary Date of Service January 13, 2023 Notes For Next Care Provider Medication Changes From Visit -Doxycycline 100mg twice daily -Flagyl 500mg twice daily Admission HPI Per Admitting Provider History obtained from patient and records. Medical history significant for SSS status post PPM on Eliquis, mild to moderate TR, hypertension, hyperlipidemia, COPD, postsurgical hypothyroidism, GERD, RLS, past tobacco abuse. Last confinement January 2022 for COPD exacerbation. 2 weeks ago, patient underwent hysteroscopy and D&C, polyp removal with MyoSure for endometrial thickening on ultrasound by DIPTI PG delineator. No immediate postprocedure concerns. 2 days ago, patient noted achy lower abdominal discomfort with fever of 101 at home. Usual shortness of breath and leg swelling. No chest pain, no cough, no diarrhea, no dysuria symptoms. No unusual vaginal bleeding. Patient consulted ER for evaluation. IV Unasyn administered at the ER for sepsis. Medical History as above Surgical History : PPM, eye surgery, thyroidectomy, cholecystectomy, D&C, breast biopsy Family History : Breast cancer Personal/Social history : Past tobacco abuse, no EtOH intake Admission Exam Per Admitting Provider GENERAL: Comfortable, pleasant, obese, no respiratory distress SKIN: Normal color, warm HEENT: [place] palpebral conjunctivae, no ptosis, dry buccal mucosa NECK : Supple, short neck, no tenderness CHEST : Decreased breath sounds, no tenderness HEART : RRR, no obvious murmurs ABDOMEN: Some distention, nontender EXTREMITIES : Minimal LE swelling, no LE tenderness, no other conspicuous deformities noted NEUROLOGIC : Coherent, no facial asymmetry, no other gross focality Principal Dx & Hospital Course #1 = Principal Diagnosis (1) Sepsis: Plan Mrs. Zhang is an 82 year old woman with history of hypertension, hypercholesterolemia, paroxysmal atrial fibrillation (no anticoagulation, spontaneous retroperitoneal bleed in April 2016; tolerating low-dose apixaban, December 2021), pacemaker (tachycardia/bradycardia syndrome), as well as recent D& C on 12/28 for endometrial thickening who is admitted for sepsis thought to be secondary to post-operative endometritis. Patient on broad spectrum antibiotics at this time with NGTD on current cultures. Afebrile for over 24 hours. Course complicated by shortness of breath/ARGUELLO with crackles on exam. CXR c/w heartfailure exacerbation. No recent ECHO on file and patient with rescent resuscitation 2/2 sepsis. s/p IV lasix 40mg. ECHO without signs of HF, appears iatrogenic iso aggressive IVF for sepsis. Seemed to improve throughout course, notable for some exertion difficulties and 2 step revealed patient to need 2L. #sepsis thought the be secondary to endometritis *improved #Endometrial thickening s/p D*C OBGYN following Afebrile for >48 hours, continue PO doxycycline 100mg BID + PO metronidazole 500mg BID for 14-day course. 01/23 EOT #Acute hypoxic respiratory failure #Cardiomegaly with pulm edema -concern for volume overload, recent aggressive IVF -s/p IV lasix 40mg -ECHO owith normal systolic function -dailys weights, strict I/Os -Resume home lasix dosing -no orthopnea, or crackles, but some exertional hypoxia #Hypokalemia replace lytes prn, K >4 m>2 p>3 #COPD -Continue Trelegy -Continue albuterol prn -Exertional O2 #Hypertension #tachybrady syndrome s/p pacemaker #paroxysmal atrial fibrillation -Continue eliquis -Continue metoprolol xl 50mg #RLS -Continue ropinrole -Continue gabapentin #postsurgical hypothyroidism -Continue synthroid 175mcg #Prior choledocholithiasis s/p selina and ERCP 07/2016 , s/p ERCP with stent removal [id number] 12/2018 s/p ERCP with partial removal and stent placement--s/p ERCP at [facility] [place] 02/09/19 with remainder of stones removed. s/p ERCP 04/08/19 with pus and sludge--s/p ERCP with stone removal, s/p ERCP at [place] 11/2019 duodenal diverticulum and wide open sphincterotomy -Continue urosidol 300mg BID #Prediabetes -SSI #Erosive esophagitis -Continue protonix 40mg daily -Tums prn #cirrhosis on u/s 12/2018, CT 03/2019 -Follow with GI, stable On day of discharge, patient eager to go home. She denied any acute symptoms, but noted to have some exertional oxygen needs despite days of IV diuersis. 2 step with 2L on exertion. Clear for discharge home. Denied acute concerns. Discharge Exam Constitutional WD/WN, vitals as above Respiratory normal respiratory effort, lungs clear to auscultation Cardiovascular RRR, no murmur, no edema Musculoskeletal no cyanosis or clubbing, extremities motor strength 5/5 Updated Medication List Medication Instructions Recorded Confirmed Type acetaminophen 500 mg tablet 500 mg PO Q4H PRN Pain 12/03/18 01/09/23 History metoprolol succinate 50 mg 50 mg PO QAM 12/03/18 01/09/23 History tablet,extended release 24 hr cholecalciferol (vitamin D3) 50 50 mcg PO DAILY 11/11/19 01/09/23 History mcg (2,000 unit) tablet (Vitamin D3) ursodiol 300 mg capsule 300 mg PO BID 11/11/19 01/09/23 History ascorbic acid (vitamin C) 500 mg 500 mg PO DAILY 09/26/20 01/09/23 History tablet (Vitamin C) levothyroxine 125 mcg capsule 125 mcg PO DAILY #30 caps 09/29/20 01/09/23 Rx gabapentin 100 mg capsule 100 mg PO HS Pain 02/13/21 01/09/23 History potassium chloride 10 mEq 10 meq PO QAM 02/13/21 01/09/23 History capsule,extended release ropinirole 1 mg tablet 1 mg PO QPM RESTLESS LEGS 02/13/21 01/09/23 History apixaban 2.5 mg tablet (Eliquis) 2.5 mg PO BID #180 tabs 12/25/21 01/09/23 Rx fluticasone fur. 100 mcg-umeclid 1 inh inhalation DAILY 01/18/22 01/09/23 History 62.5 mcg-vilant 25 mcg inhalat.powder (Trelegy Ellipta) albuterol sulfate 90 mcg/actuation 2 puff inhalation QID PRN 02/10/22 01/09/23 History aerosol inhaler Shortness Of Breath Or Wheezing furosemide 40 mg tablet 40 mg PO DAILY 02/10/22 01/09/23 History pantoprazole 20 mg tablet,delayed 20 mg PO QAM 12/18/22 01/09/23 History release calcium carbonate 200 mg calcium 200 mg PO BID 01/09/23 01/09/23 History (500 mg) chewable tablet (Tums) vit C 250 mg-vit E 90 mg-zinc 40 1 tab PO BID 01/09/23 01/09/23 History mg-copper 1 [id number] capsule (PreserVision AREDS-2) doxycycline hyclate 100 mg capsule 100 mg PO BID #21 caps 01/13/23 Rx metronidazole 500 mg tablet 500 mg PO BID #21 tabs 01/13/23 Rx Hospital Stay Data Consultations 01/09/23 05:07 ED Decision to Admit Stat 01/10/23 12:47 Consult Cardiology Routine Diagnostic Imagining Performed 01/08/23 23:20 US pelvic complete Stat 01/08/23 23:35 CT Abd and Pelvis [CT abd pelvis IV con only] Stat Pending Results Patient Have Any Pending Studies at Discharge: No Discharge Instructions Given to Patient (Per Discharging Provider) You were admitted due to fevers and found to have post-operative endometritis, or inflammation and infection of the lining of your uterus. You were given 3 days of antibiotics and started on an oral regimen of two of the following medications: -Doxycycline 100mg twice a day, your next dose is tonight -Flagyl (metronidazole) 500mg twice a day, your next dose is tonight You will complete all the pills in the bottles for a total of 14 days. You were noted to require oxygen on exertion, 2L. You will be sent home with O2 and can follow up with PCP/Pulmonology for outpatient assessment of continued oxygen needs. You will continue all your home medications as directed/prescribed prior to hospitalization by your primary care provider and specialists. Total Time Total Time Spent Total Time Spent (In Minutes): 45
== END 2023-01-13 15:11 | disposition home or self-care (01) | DRG 871 ==
LOC: ED 23:14 → EDINP 01-09 05:13 → 3E 01-09 23:10